=== PATIENT | female | born 1960 | race Caucasian/White ===

== ENCOUNTER 2020-03-10 02:16 | Outpatient (CLI) | payer OTHER, SELFPAY ==
[2020-03-10 21:22] LABS: SARS-CoV-2 RNA PCR Negative
== END 2020-03-10 02:17 | disposition home or self-care (01) ==
LOC: ANHCOVIDDT 02:16
PROVIDERS: PCP Family Medicine Adolescent Medicine; Visit Provider Internal Medicine Gastroenterology
DX: Z01.812 Encounter for preprocedural laboratory examination (principal); Z20.828 Contact with and (suspected) exposure to other viral communicable diseases
CPT/HCPCS: 87635; C9803; U0003

== ENCOUNTER 2020-03-13 00:18 | Day surgery (SDC) | payer OTHER, SELFPAY ==
[2020-03-10 09:23] VITALS: BMI 30.2
[2020-03-13 09:21] VITALS: BP 150/94; PULSE 121; RESP 18; TEMP 36.4; O2SAT 97; BMI 28.8
[2020-03-13] MEDS: LACTATED RINGERS 1,000 ML 150 ML IV CONT (09:31)
--- NOTE | 2020-03-13 09:43 | PM.IMHP ---
H&P: HPI History of Present Illness Date/Time: 03/13/20 09:43 Chief complaint: Neoplasm Screening Narrative: Reason for visit is colonoscopy. Here very pleasant lady seen in consultation at the request of the primary physician. Impression: Colonoscopy for screening purposes. Patient does have some nonspecific abdominal pain in the epigastric area, right lower quadrant and left lower quadrant. These are most likely functional nature. Abdominal wall pain certainly may be a consideration. GERD with occasional breakthrough symptoms. Anxiety. Obesity. Recommendation: Colonoscopy. We will schedule EGD. History: This very pleasant lady's here for screening colonoscopy. She does have a history of reflux disease with occasional to moderately frequent breakthrough symptoms. It depends whether she eats later not. Nausea, vomiting hematemesis tonight. She denies any hematochezia, melena or acholic stools. She reports sharp type with pain in the epigastric area, right lower quadrant and left lower quadrant. It lasts just 1 second. It occurs every day for the last several months. patient is here for colonoscopy. EGD will be scheduled. Physical examination: General: very pleasant patient in no acute distress. HEENT: Head was normocephalic sclerae is clear mouth without masses neck was supple. Heart: Rate rhythm regular without S3 or S4. Lungs: CTA. Abdomen: Soft with no guarding or rigidity. Bowel sounds were active. Neurologic: Cranial nerves 2 through 12 intact. No focal defects. No clonus. Musculoskeletal system: Revealed no joint tenderness or swelling no muscle atrophy. Extremities: Reveal no significant edema. Skin: Warm and dry with normal turgor. Mental status: intact. Patient is alert and oriented. Review of Systems Review of Systems: All systems reviewed & are unremarkable except as noted in HPI and below PMFSH Social History Social History Alcohol intake: current Substance use: never Substance use type: does not use Living arrangements: with family Spiritual care concerns: No Meds Home Medications and Allergies Home Medications Medication Instructions Recorded Confirmed Type alprazolam 0.5 mg PO PRN PRN 03/10/20 03/13/20 History omeprazole magnesium [Prilosec OTC] 20 mg PO DAILY 03/10/20 03/10/20 History Allergies Allergy/AdvReac Type Severity Reaction Status Date / Time codeine Allergy Severe Hives / Unverified 03/13/20 09:20 Red Face Vital Signs Vital Signs - 24 hr 03/13/20 09:21 Temperature 36.4 C L Pulse Rate 121 H Respiratory Rate 18 Blood Pressure 150/94 H Pulse Oximetry 97
--- NOTE | 2020-03-13 09:48 | P.PNAN_ITS ---
Anes - Initial Pre Proc Eval Procedure: Operation Date: 03/13/20 10:30 Proposed Procedures p Screening Colonoscopy - Parth Woods DO Date/Time: 03/13/20 09:48 Surgeon: Parth Woods DO Pre Op Diagnosis: Neoplasm Screening Patient Data Age: 59 Gender: F Height: 5 ft 2 in Weight: 71.5 kg Last Vital Signs Temp 97.5 F L 03/13/20 09:21 Pulse 121 H 03/13/20 09:21 Resp 18 03/13/20 09:21 BP 150/94 H 03/13/20 09:21 Pulse Ox 97 03/13/20 09:21 Allergies Allergy/AdvReac Type Severity Reaction Status Date / Time codeine Allergy Severe Hives / Unverified 03/13/20 09:20 Red Face Home Medications Medication Instructions Recorded Confirmed Type alprazolam 0.5 mg PO PRN PRN 03/10/20 03/13/20 History omeprazole magnesium [Prilosec OTC] 20 mg PO DAILY 03/10/20 03/10/20 History Patient hx anesthesia problems: none Family hx anesthesia problems: none [facility] Past Medical History Medical History (Updated 03/13/20 @ 09:46 by Kwadwo Medina MD) Anxiety GERD (gastroesophageal reflux disease) Social History Social History Alcohol intake: current Substance use: never Substance use type: does not use Living arrangements: with family Spiritual care concerns: No Anes - Eval Final PreProcedure Day of Procedure 03/13/20 09:48 Patient weight: overweight Heart: regular rate and rhythm Lungs: clear to auscultation Airway: Mallampati scale class II Neurological: alert and oriented Last oral intake: >/= 8 hours ASA classification: II Emergent: no Anesthetic plan: proceed Anesthesia type and monitoring: general GIVS and standard monitoring Informed Consent: The patient's anesthetic plan and its attendant risks and benefits were discussed with the patient/family/POA. Questions were solicited and answers provided to the satisfaction of the patient/family/POA.
[2020-03-13 10:42] VITALS: BP 138/83; PULSE 94; RESP 15; O2SAT 100
[2020-03-13 10:52] VITALS: BP 135/92; PULSE 97; RESP 22; O2SAT 100
[2020-03-13 11:02] VITALS: BP 116/71; PULSE 89; RESP 17; O2SAT 99
[2020-03-13 11:12] VITALS: BP 122/85; PULSE 95; RESP 17; O2SAT 97
== END 2020-03-13 11:15 | disposition home or self-care (01) ==
PROVIDERS: PCP Family Medicine Adolescent Medicine; Visit Provider Internal Medicine Gastroenterology
PROC: 0DJD8ZZ Inspection of Lower Intestinal Tract, Via Natural or Artificial Opening Endoscopic (ICD-10-PCS; CPT 45378; principal; 2020-03-13 10:30)
DX: Z12.11 Encounter for screening for malignant neoplasm of colon (principal); K57.30 Diverticulosis of large intestine without perforation or abscess without bleeding; K62.1 Rectal polyp; F41.9 Anxiety disorder, unspecified; K21.9 Gastro-esophageal reflux disease without esophagitis
CPT/HCPCS: 45385; 45380; 87635; 88305; C9803; J2704; J7120; U0003

== ENCOUNTER → 2020-10-03 03:12 | Outpatient (CLI) | payer OTHER, SELFPAY ==
[2020-10-03 19:50] LABS: SARS-CoV-2 RNA PCR Negative
== END ==
PROVIDERS: PCP Family Medicine Adolescent Medicine; Visit Provider Internal Medicine Gastroenterology
DX: Z01.812 Encounter for preprocedural laboratory examination (principal); Z20.822 Contact with and (suspected) exposure to COVID-19
CPT/HCPCS: C9803; U0003; U0005

== ENCOUNTER 2020-10-06 00:35 | Day surgery (SDC) | payer OTHER, SELFPAY ==
--- NOTE | 2020-10-06 11:01 | WPDANESEPPF ---
Anes - Initial Pre Proc Eval Procedure: Operation Date: 10/06/20 12:00 Proposed Procedures p Esophagogastroduodenoscopy - Parth Woods DO Date/Time: 10/06/20 11:01 Surgeon: Parth Woods DO Pre Op Diagnosis: Gerd Patient Data Age: 60 Gender: F Height: 1.57 m Weight: Allergies Allergy/AdvReac Type Severity Reaction Status Date / Time codeine Allergy Severe Hives / Verified 10/06/20 11:18 Red Face Home Medications Medication Instructions Recorded Confirmed Type alprazolam 0.5 mg PO DAILY PRN 03/10/20 09/25/20 History omeprazole magnesium [Prilosec OTC] 20 mg PO BID 03/10/20 09/25/20 History Patient hx anesthesia problems: none Family hx anesthesia problems: none [facility] Past Medical History Medical History (Updated 10/06/20 @ 09:23 by Manuel Caldwell DO) Anxiety Fibroid GERD (gastroesophageal reflux disease) Palpitations Surgical History Surgical History (Updated 10/06/20 @ 09:23 by Manuel Caldwell DO) History of hysterectomy Hx laparoscopic cholecystectomy Social History Social History Smoking status: Never smoker Alcohol intake: current Alcohol use details: RARELY Substance use: never Substance use type: does not use Living arrangements: with family Spiritual care concerns: No Anes - Eval Final PreProcedure Day of Procedure 10/06/20 11:01 Patient weight: normal Heart: regular rate and rhythm Lungs: clear to auscultation and normal air movement Airway: Mallampati scale class II Neurological: alert and oriented Last oral intake: >/= 8 hours ASA classification: II Emergent: no Anesthetic plan: proceed Anesthesia type and monitoring: general GIVS and standard monitoring Informed Consent: The patient's anesthetic plan and its attendant risks and benefits were discussed with the patient/family/POA. Questions were solicited and answers provided to the satisfaction of the patient/family/POA.
[2020-10-06] MEDS: LACTATED RINGERS 1,000 ML 150 ML IV CONT (11:17)
[2020-10-06 11:20] VITALS: BP 176/83; PULSE 92; RESP 24; TEMP 36.5; O2SAT 99; BMI 29.9
--- NOTE | 2020-10-06 11:34 | WPDGICN ---
GI Consult Note Consult date/time: 10/06/20 11:34 HPI: reason for visit EGD. This very pleasant lady seen in consultation at the request of the primary physician. Impression: GERD control with b.i.d. PPI. The patient does have complaints of intermittent abdominal pain. We will evaluate for underlying peptic ulcer disease. Anxiety. Diverticulosis coli. Recommendation: EGD. History: This very pleasant lady has history reflux disease. She takes omeprazole 20 mg b.i.d.. The patient denies any nausea, vomiting, hematemesis, dysphagia, odynophagia, indigestion or heartburn at this time. She seems to be well controlled on medication. She does have a couple of episodes of sharp pain occasionally. She does report some urgency in the morning with loose stools. Hematochezia, melena acholic stools night. She does admit taking NSAIDs at time. Physical examination: General: very pleasant patient in no acute distress. HEENT: Head was normocephalic sclerae is clear mouth without masses neck was supple. Heart: Rate rhythm regular without S3 or S4. Lungs: CTA. Abdomen: Soft with no guarding or rigidity. Bowel sounds were active. Neurologic: Cranial nerves 2 through 12 intact. No focal defects. No clonus. Musculoskeletal system: Revealed no joint tenderness or swelling no muscle atrophy. Extremities: Reveal no significant edema. Skin: Warm and dry with normal turgor. Mental status: intact. Patient is alert and oriented. Review of Systems Review of Systems: All systems reviewed & are unremarkable except as noted in HPI and below PMFSH Past Medical History Medical History (Updated 10/06/20 @ 09:23 by Manuel Caldwell DO) Anxiety Fibroid GERD (gastroesophageal reflux disease) Palpitations Surgical History Surgical History (Updated 10/06/20 @ 09:23 by Manuel Caldwell DO) History of hysterectomy Hx laparoscopic cholecystectomy Social History Social History Smoking status: Never smoker Alcohol intake: current Alcohol use details: RARELY Substance use: never Substance use type: does not use Living arrangements: with family Spiritual care concerns: No Meds Home Medications and Allergies Home Medications Medication Instructions Recorded Confirmed Type alprazolam 0.5 mg PO DAILY PRN 03/10/20 09/25/20 History omeprazole magnesium [Prilosec OTC] 20 mg PO BID 03/10/20 09/25/20 History Allergies Allergy/AdvReac Type Severity Reaction Status Date / Time codeine Allergy Severe Hives / Verified 10/06/20 11:18 Red Face Vital Signs Vital Signs - 24 hr 10/06/20 11:20 Temperature 36.5 C Pulse Rate 92 Respiratory Rate 24 H Blood Pressure 176/83 H Pulse Oximetry 99
[2020-10-06 11:55] VITALS: BP 131/72; PULSE 92; RESP 14; O2SAT 98
[2020-10-06 12:05] VITALS: BP 130/82; PULSE 87; RESP 17; O2SAT 98
[2020-10-06 12:15] VITALS: BP 134/87; PULSE 82; RESP 23; O2SAT 100
== END 2020-10-06 12:29 | disposition home or self-care (01) ==
PROVIDERS: PCP Family Medicine Adolescent Medicine; Visit Provider Internal Medicine Gastroenterology
PROC: 0DJ08ZZ Inspection of Upper Intestinal Tract, Via Natural or Artificial Opening Endoscopic (ICD-10-PCS; CPT 43235; principal; 2020-10-06 12:00)
DX: K21.9 Gastro-esophageal reflux disease without esophagitis (principal); F41.9 Anxiety disorder, unspecified; R00.2 Palpitations; K57.30 Diverticulosis of large intestine without perforation or abscess without bleeding
CPT/HCPCS: 43239; 87081; 88305; C9803; J2001; J2704; J7120; U0003; U0005

== ENCOUNTER 2020-12-25 12:06 | Emergency (ER) | payer OTHER, SELFPAY ==
[2020-12-25 12:06] VITALS: BP 106/72; PULSE 100; RESP 20; TEMP 36.6; O2SAT 100
--- NOTE | 2020-12-25 12:30 | PC.NURSE ---
PT AWARE OF NEED FOR URINE SAMPLE. CUP PROVIDED TO PT WITH BSC.
[2020-12-25 12:46] LABS: Basophils Percent Auto 0.4 % (0.2-1.2); Hematocrit 47.1 % (37.0-47.0); Immature Granulocyte Absolute 0.02 K/mm3 (0.00-0.031); Immature Granulocyte Percent A 0.2 % (0-0.5); Lymphocytes Absolute Auto 0.84 K/mm3 (0.9-3.2); Lymphocytes Percent Auto 9.8 % (18.3-44.2); Mean Corpuscular Hemoglobin 29.1 pg (26-34); Mean Corpuscular Volume 85.6 fl (80-100); Mean Platelet Volume 11.7 fl (7.4-10.4); Monocytes Absolute Auto 0.6 K/mm3 (0.1-0.6); Monocytes Percent Auto 7.2 % (2.6-8.5); Neutrophils Absolute Auto 7.1 K/mm3 (1.3-6.7); Neutrophils Percent Auto 82.4 % (45.5-73.1); Platelet Count Result 206 k/mm3 (150-375); Red Cell Distribution Width 13.4 % (11.5-14.5); White Blood Count 8.6 K/mm3 (4.5-10.0)
[2020-12-25 12:57] LABS: Alanine Aminotransferase 36 U/L (4-35); Albumin Level 5.1 g/dL (3.5-5.1); Alkaline Phosphatase 99 U/L (38-126); Anion Gap 22 mmol/L (8-16); Aspartate Amino Transferase 42 U/L (14-36); Bilirubin,Total 0.9 mg/dL (0.2-1.3); Blood Urea Nitrogen 16 mg/dL (7-17); Calcium 10.1 mg/dL (8.4-10.2); Carbon Dioxide 18 mmol/L (22-30); Chloride 96 mmol/L (98-107); Estimated CRCL calculation 49 ml/min; Estimated Glomerular Filt Rate 56; Glucose 119 mg/dL (65-110); Lipase 334 U/L (23-300); Potassium 3.6 mmol/L (3.4-5.0); Sodium 136 mmol/L (137-145)
--- NOTE | 2020-12-25 13:54 | PC.NURSE ---
SPOKE WITH MR DARLINE WHO REPORTS THAT HIS HAS BEEN TAKING HYDROXYCHLOROQUINE, ZINC, VITAMIN D3 AND VITAMIN B12 THAT WAS PRESCRIBED THRU [facility] [employer] -DR DAYRON TRIPATHI. PHARMACY THAT SENT MEDS THRU MAIL ORDER IS YOUR PHARMACY IN [facility] AT [phone]
[2020-12-25 14:05] LABS: EDCOVIDSCREEN Positive (Negative)
[2020-12-25] MEDS: POTASSIUM CHLORIDE 20 MEQ TABLET 40 MEQ PO (15:26)
[2020-12-25] MEDS: ONDANSETRON INJ 4 MG/2 ML VIAL IV PUSH (15:27)
[2020-12-25] MEDS: SODIUM CHLORIDE 0.9% IV 1,000 ML 999 ML IV CONT (15:28)
[2020-12-25 15:30] VITALS: BP 120/80; PULSE 106; RESP 16; O2SAT 98
--- NOTE | 2020-12-25 15:30 | ED.GENADULT ---
HPI - General Adult General Chief complaint: Nausea/Vomiting/Diarrhea <Danette Pablo PA-C - Last Filed: 12/25/20 15:37> Stated complaint: cold symptoms <Danette Pablo PA-C - Last Filed: 12/25/20 15:37> Time Seen by Provider: 12/25/20 12:41 <Danette Pablo PA-C - Last Filed: 12/25/20 15:37> Source: patient <JAVIER Rose Last Filed: 12/25/20 15:37> Mode of arrival: ambulatory <JAVIER Rose Last Filed: 12/25/20 15:37> Limitations: no limitations <JAVIER Rose Last Filed: 12/25/20 15:37> History of Present Illness HPI narrative: Patient presents with chief complaint of nausea, vomiting, diarrhea and nasal congestion over the past 2 days. Patient states that she was exposed to a Covid positive patient 10 days ago. Patient states that she called the online frontline doctor care and was prescribed zinc, vitamin C, hydrochloroquine and has been taking those medications. Patient denies chest pain or shortness of breath. Patient states that she has had fatigue that she has not been able to eat very much without vomiting. <Danette Pablo PA-C - Last Filed: 12/25/20 15:37> Related Data Home medications: Home Medications Medication Instructions Recorded Confirmed B Complex-Vitamin B12 12/25/20 B complex-zinc 12/25/20 Vitamin D3 12/25/20 hydroxychloroquine 12/25/20 omeprazole 12/25/20 <Danette Pablo PA-C - Last Filed: 12/25/20 15:37> Allergies/adverse reactions: Allergies Allergy/AdvReac Type Severity Reaction Status Date / Time codeine Allergy Severe Hives / Verified 12/25/20 12:40 Red Face <Danette Pablo PA-C - Last Filed: 12/25/20 15:37> Review of Systems Review of Systems: CONSTITUTIONAL: Denies fever, chills, or sweats. EYES: Denies visual changes, redness, or discharge. ENT: Reports congestion denies rhinorrhea,sore throat, or otalgia. CARDIOVASCULAR: Denies chest pain, palpitations, or edema. RESPIRATORY: Denies cough or dyspnea. GASTROINTESTINAL: Reports nausea vomiting diarrhea GENITOURINARY: Denies dysuria or hematuria. SKIN: Denies rash or itching. MUSCULOSKELETAL: Denies back pain, joint pain, or myalgia. NEUROLOGIC: Denies headache, numbness, dizziness, or weakness. PSYCHIATRIC: Denies anxiety or depression. <Danette Pablo PA-C - Last Filed: 12/25/20 15:37> [facility] Past Medical History Medical History: Medical History (Updated 12/25/20 @ 15:36 by Danette Pablo PA-C) Anxiety Fibroid GERD (gastroesophageal reflux disease) Palpitations <Danette Pablo PA-C - Last Filed: 12/25/20 15:37> Surgical History Surgical History: Surgical History (Updated 10/06/20 @ 09:23 by Manuel Caldwell DO) History of hysterectomy Hx laparoscopic cholecystectomy <Danette Pablo PA-C - Last Filed: 12/25/20 15:37> Social History Social History: Social History Smoking status: Never smoker Alcohol intake: current Alcohol use details: RARELY Substance use: never Substance use type: does not use Spiritual care concerns: No <Danette Pablo PA-C - Last Filed: 12/25/20 15:37> Exam Narrative: GENERAL: Well-appearing, well-nourished, appears tired but not toxic in appearance HEAD: Normocephalic, atraumatic. EYES: PERRLA and EOMI. NECK: Supple. Range of motion intact CHEST: Clear to auscultation. No respiratory distress. No wheezes rales or rhonchi HEART: Regular rate and rhythm. No murmur heard. Normal peripheral pulses. ABDOMEN: Soft, nontender, nondistended, normal active bowel sounds. EXTREMITIES: Normal range of motion. No edema. SKIN: Warm, dry, no rash. NEURO: No focal deficits. Alert and oriented x3. PSYCH: Normal mood and affect. <Danette Pablo PA-C - Last Filed: 12/25/20 15:37> Course Vital Signs Vital signs: Vital Signs Temperature 98 F 12/25/20 12:06 Pulse Rate 100 12/25/20 12:06 Respiratory Rate 20 12/25/20 12:06 Blood
--- NOTE | 2020-12-25 15:35 | PC.NURSE ---
PT AWARE OF CONTINUED NEED FOR URINE SAMPLE. DECLINES STRAIGHT CATH.
[2020-12-25 17:15] VITALS: BP 128/85; PULSE 97; RESP 16; O2SAT 100
== END 2020-12-25 20:29 | disposition home or self-care (01) ==
PROVIDERS: Physician Assistant; Emergency Provider Emergency Medicine; PCP Family Medicine Adolescent Medicine
DX: U07.1 COVID-19 (principal); K21.9 Gastro-esophageal reflux disease without esophagitis
CPT/HCPCS: 36415; 80053; 83690; 85025; 87426; 96361; 96374; 99284; A9270; C9803; J2405; J7030

== ENCOUNTER 2020-12-30 05:54 | Inpatient (IN) | payer OTHER, SELFPAY ==
[2020-12-30] VITALS (20 sets, daily range): BP systolic 73–142; BP diastolic 45–96; PULSE 100–123; RESP 12–24; TEMP 36.2–37.9; O2SAT 90–99; BMI 28.5
--- NOTE | ~2020-12-30 | XR_ITS ---
EXAMINATION: XR chest 1V portable INDICATION: Respiratory failure TECHNIQUE: Portable AP chest at 0505 hours COMPARISON: 02/14/2021 FINDINGS: The endotracheal tube is approximately 5.8 cm above the lobito. The nasogastric tube is in the stomach. A left upper extremity PICC ends with its tip at the superior cavoatrial junction. Two r ight-sided chest tubes are again seen. The inferior chest tube has been partially withdrawn and ends with its side port just inside the pleural space. There is no pleural effusion or pneumothorax. Diffu se airspace opacities persist with slight interval worsening in the right perihilar region. IMPRESSION: 1. Diffuse lung disease with interval worsening in the right perihilar region, consistent with pneumo lauren and/or pulmonary edema and/or acute respiratory distress syndrome (ARDS). Reviewed, dictated and finalized at location A. IMPRESSION: 1. Diffuse lung disease with interval worsening in the right perihilar region, consistent with pneumonia and/or pulmonary edema and/or acute respiratory distr ess syndrome (ARDS).
--- NOTE | ~2020-12-30 | XR_ITS ---
EXAMINATION: XR chest 1V portable DATE: 01/19/2021 05:54 INDICATION: COVID pneumonia TECHNIQUE: frontal view of the chest was obtained. COMPARISON: Chest radiograph dated 01/18/2021 FINDINGS: Endotracheal tube tip 1.2 cm above the lobito. Nasogastric tube with distal tip in proximal side port in the body of the stomach. Unchanged apically directed right chest tube. Residual or pneumomediastinum and small right pneumothorax. Additional superimposed subcutaneous emph ysema project over the bilateral chest wall, base of the neck and extending into the right upper arm. Diffuse groundglass opacities throughout both lungs. No pleural effusion or left-sided pneumothorax. Heart size is normal. IMPRESSION: 1. Lines and tubes in expected position. 2. Persistent pneumomediastinum, small right pneumothorax and extensive subcutaneous emphysema. 2. No significant change in diffuse lung disease consistent with COVID pneumonia. Reviewed, dictated and finalized at location A. IMPRESSION: 1. Lines and tubes in expected position. 2. Persistent pneumomediastinum, small right pneumothorax and extensive subcuta neous emphysema. 2. No significant change in diffuse lung disease consistent with COVID pneumoni a.
--- NOTE | ~2020-12-30 | XR_ITS ---
EXAMINATION: XR chest 1V portable INDICATION: Respiratory failure TECHNIQUE: Portable AP chest at 0514 hours COMPARISON: 02/18/2021 FINDINGS: The endotracheal tube ends 5.3 cm above the lobito. The nasogastric tube is in the stomach. A right-sided chest tube courses towards the right lung apex. A left upper extremity PICC ends with its tip at the superior cavoatrial junction. The inferior right chest tube has been removed. No pneum othorax is identified. Diffuse opacities persist throughout all lung zones without significant change . There is no pleural effusion or pneumothorax. The cardiomediastinal silhouette is normal. IMPRESSION: 1. Stable diffuse lung disease, consistent with pneumonia and/or pulmonary edema and/or acute respira tory distress syndrome (ARDS). 2. Inferior right chest tube removed. Reviewed, dictated and finalized at location A. IMPRESSION: 1. Stable diffuse lung disease, consistent with pneumonia and/or pulmonary leann a and/or acute respiratory distress syndrome (ARDS). 2. Inferior right chest tube removed.
--- NOTE | ~2020-12-30 | XR_ITS ---
XR chest 1V portable DATE: 01/27/2021 05:39 INDICATION: Respiratory failure, Covid pneumonia TECHNIQUE: Portable AP chest on 01/27/2021 at 0505 hours COMPARISON: 01/26/2021 portable AP chest at 0519 hours FINDINGS: ET tube in satisfactory position 4.8 cm above lobito. NG tube in stomach. Left upper extrem ity PIC catheter tip overlies the upper right atrium. Right chest tube is unchanged in position. The right lung apex down approximately 1.7 cm. Extensive diffuse bilateral pulmonary infiltrates persist. No pleural effusion is evident. IMPRESSION: Mild right apical pneumothorax; right chest tube Extensive diffuse bilateral pulmonary infiltrates, not significantly changed since yesterday Reviewed, dictated and finalized at location A. IMPRESSION: Mild right apical pneumothorax; right chest tube Extensive diffuse bilateral pulmonary infiltrates, not significantly changed si nce yesterday
--- NOTE | ~2020-12-30 | XR_ITS ---
XR chest 1V portable DATE: 02/06/2021 05:34 INDICATION: Respiratory failure TECHNIQUE: Portable AP chest on 02/06/2021 at 0520 hours COMPARISON: 02/05/2021 portable AP chest FINDINGS: ET tube in satisfactory position 3.9 cm above lobito. NG tube unchanged in position in kala dalila fundus. Left upper stomach the catheter tip overlies the right atrium. Right thoracostomy tube is unchanged in position overlying the lateral right apical area. There are persistent diffuse bilateral pulmonary infiltrates with air bronchograms in the lower lobes in particular, especially on the left, unchanged since 02/05/2021. IMPRESSION: No significant change since 02/05/2021 Reviewed, dictated and finalized at location A.
--- NOTE | ~2020-12-30 | XR_ITS ---
XR chest 1V portable DATE: 01/28/2021 05:30 INDICATION: Respiratory failure TECHNIQUE: Portable AP chest on 01/28/2021 at 0516 hours COMPARISON: 01/27/2021 portable AP chest at 0505 hours FINDINGS: ET tube tip is 5.5 cm above lobito; ideal range is 2 7 5 cm. NG tube in gastric fundus. Left upper extremity PIC catheter tip overlies the upper right atrium. Right thoracostomy tube is unchanged in position. No definite pneumothorax is identified. Diffuse bilateral pulmonary infiltrates persist relatively stable since 01/27/2021. IMPRESSION: Right thoracostomy tube; no right pneumothorax is noted Persistent diffuse bilateral pulmonary infiltrates Reviewed, dictated and finalized at location A.
--- NOTE | ~2020-12-30 | XR_ITS ---
EXAMINATION: XR chest 1V portable DATE: 02/09/2021 05:41 INDICATION: Respiratory failure. COVID-19 pneumonia. TECHNIQUE: A single frontal view of the chest was obtained. COMPARISON: Chest single view 02/08/2021 FINDINGS: There are airspace and interstitial opacities throughout the lungs bilaterally. There is a small right pleural effusion. Two right-sided chest tubes are noted. No pleural effusion. The heart s ize is normal. The endotracheal tube tip is 5.7 cm above the lobito. The nasogastric tube tip is in t he stomach. A left upper extremity peripherally inserted central venous catheter (PICC) is seen with tip at the superior cavoatrial junction. IMPRESSION: 1. Stable small right pneumothorax with 2 chest tubes. 2. Stable diffuse lung disease, consistent with pneumonia versus acute respiratory distress syndrome (ARDS). Reviewed, dictated and finalized at location A. IMPRESSION: 1. Stable small right pneumothorax with 2 chest tubes. 2. Stable diffuse lung disease, consistent with pneumonia versus acute respirat ory distress syndrome (ARDS).
--- NOTE | ~2020-12-30 | XR_ITS ---
EXAMINATION: XR chest 1V portable DATE: 01/14/2021 20:19 INDICATION: Increased ventilator pressures TECHNIQUE: frontal view of the chest was obtained. COMPARISON: Chest radiograph dated 01/14/2021 FINDINGS: Endotracheal tube tip 4.5 cm above the lobito. Nasogastric tube tip in proximal side port in the body of the stomach. Apically directed right chest tube. Diffuse bilateral airspace opacities most prominent with air bronchograms in the left lower lung zone . No pleural effusion or left-sided pneumothorax. There is some pneumomediastinum and tiny residual r ight paramediastinal pneumothorax. Heart size is normal. IMPRESSION: 1. Right chest tube in unchanged position with near complete resolution of now tiny right pneumothora x decrease in pneumomediastinum. 2. Note significant change in diffuse bilateral lung disease consistent with pneumonia. Reviewed, dictated and finalized at location A. IMPRESSION: 1. Right chest tube in unchanged position with near complete resolution of now tiny right pneumothorax decrease in pneumomediastinum. 2. Note significant change in diffuse bilateral lung disease consistent with pn eumonia.
--- NOTE | ~2020-12-30 | XR_ITS ---
EXAMINATION: XR chest 1V portable EXAM DATE: 02/21/2021 09:14 INDICATION: Desaturation, hypoxia . Respiratory failure. TECHNIQUE: Portable AP frontal chest x-ray was obtained. Comparison is made to prior examination from earlier same date. FINDINGS: Endotracheal tube tip is 5 centimeters above the lobito. Feeding tube is in position. Ther e is a left-sided PICC line. Diffuse abnormal reticulation is unchanged, likely edema and/or pneumonia. There are no sizable pleu ral effusions. There is no pneumothorax suspected. Cardiomediastinal silhouette is normal. The b ones and soft tissues are unremarkable. There is no significant interval change compared to prior exam. IMPRESSION: 1. Line and tube(s) in position. 2. Diffuse pneumonia and/or edema unchanged. Reviewed, dictated and finalized at location A.
--- NOTE | ~2020-12-30 | XR_ITS ---
EXAMINATION: XR chest 1V portable DATE: 01/05/2021 05:57 INDICATION: Dyspnea TECHNIQUE: frontal view of the chest was obtained. COMPARISON: Chest radiograph dated 01/03/2021 FINDINGS: Mild elevation of the right hemidiaphragm. Persistent opacities in the bilateral lower lung zones. No pleural effusion or pneumothorax. The cardiomediastinal silhouette is normal. IMPRESSION: 1. No significant change in opacities in bilateral lower lung zones which could represent pneumonia a nd/or atelectasis. Reviewed, dictated and finalized at location A. IMPRESSION: 1. No significant change in opacities in bilateral lower lung zones which could represent pneumonia and/or atelectasis.
--- NOTE | ~2020-12-30 | XR_ITS ---
XR chest 1V portable 01/24/2021 05:34 Indication: Pneumothorax. Covid . Procedure: AP portable chest Comparison: Comparison to multiple prior studies sequentially, with oldest reviewed study dated 01/20. Findings: Endotracheal tube tip 4.4 cm above the lobito. NG tube in the stomach. Right-sided chest tu be at the apex. Heart size normal. PICC line tip in the SVC. Diffuse bilateral airspace disease witho ut significant change. No definite pneumothorax. Impression: 1: Diffuse bilateral airspace disease which may represent pneumonia or edema. Reviewed, dictated and finalized at location A. Impression: 1: Diffuse bilateral airspace disease which may represent pneumonia or edema.
--- NOTE | ~2020-12-30 | XR_ITS ---
EXAMINATION: XR chest 1V portable DATE: 02/11/2021 05:43 INDICATION: Respiratory failure. COVID-19 pneumonia. TECHNIQUE: A single frontal view of the chest was obtained. COMPARISON: Chest single view 02/10/2021 FINDINGS: There are airspace and interstitial opacities throughout the lungs bilaterally. No pleural effusion. There is a small right pneumothorax. Two right-sided chest tubes are noted. The endotrachea l tube tip is 4.8 cm above the lobito. A nasogastric tube tip is in the stomach. A left upper extremi ty peripherally inserted central venous catheter (PICC) is seen with tip at the superior cavoatrial j unction. IMPRESSION: 1. Stable diffuse lung disease, consistent with pneumonia versus acute respiratory distress syndrome (ARDS). 2. Small right pneumothorax with interval improvement with 2 right-sided chest tubes. Reviewed, dictated and finalized at location A. IMPRESSION: 1. Stable diffuse lung disease, consistent with pneumonia versus acute respirat ory distress syndrome (ARDS). 2. Small right pneumothorax with interval improvement with 2 right-sided chest tubes.
--- NOTE | ~2020-12-30 | XR_ITS ---
EXAMINATION: XR chest-chest tube insert/pos INDICATION: Chest tube insertion TECHNIQUE: Portable AP chest at 1132 hours COMPARISON: 1053 hours FINDINGS: A right-sided chest tube has been inserted which ends in the lower hemithorax. No definite persistent pneumothorax is identified. A right-sided chest tube coursing towards the lung apex is unc hanged in position. The endotracheal tube is 5.3 cm above the lobito. A nasogastric tube is in the st omach. A left upper extremity PICC ends with its tip at the superior cavoatrial junction. Significant , widespread bilateral interstitial and airspace opacities are unchanged. The cardiomediastinal silho uette is stable. IMPRESSION: 1. Right-sided chest tube insertion with resolved right pneumothorax. 2. Stable diffuse lung disease, consistent with pneumonia and/or pulmonary edema and/or acute respira tory distress syndrome (ARDS). Reviewed, dictated and finalized at location B. IMPRESSION: 1. Right-sided chest tube insertion with resolved right pneumothorax. 2. Stable diffuse lung disease, consistent with pneumonia and/or pulmonary leann a and/or acute respiratory distress syndrome (ARDS).
--- NOTE | ~2020-12-30 | XR_ITS ---
XR chest 1V portable DATE: 01/29/2021 05:27 INDICATION: Respiratory failure TECHNIQUE: Portable AP chest on 01/29/2021 at 0505 hours COMPARISON: Portable AP chest on 01/28/2021 at 0516 hours FINDINGS: ET tube tip 5 cm above lobito. NG tube in stomach. Right thoracostomy tube unchanged in position, overlying right apex. No pneumothorax. Persistent severe diffuse bilateral pulmonary infiltrates. Normal heart size. No pleural effusion. IMPRESSION: Persistent severe diffuse bilateral pulmonary infiltrates Right thoracostomy tube; no pneumothorax Reviewed, dictated and finalized at location A.
--- NOTE | ~2020-12-30 | XR_ITS ---
EXAMINATION: XR chest 1V portable DATE: 02/10/2021 05:55 INDICATION: Respiratory failure. COVID-19 pneumonia. TECHNIQUE: A single frontal view of the chest was obtained. COMPARISON: Chest single view 02/09/2021 FINDINGS: There are airspace and interstitial opacities throughout the lungs bilaterally. There is a small right pneumothorax. Two right-sided chest tubes are noted. No pleural effusion. The heart size is normal. The endotracheal tube tip is 4.9 cm above the lobito. The nasogastric tube tip is in the s tomach. A left upper extremity peripherally inserted central venous catheter (PICC) is seen with tip at the superior cavoatrial junction. IMPRESSION: 1. Stable diffuse lung disease, consistent with pneumonia versus acute respiratory distress syndrome (ARDS). 2. Stable small right pneumothorax with 2 right-sided chest tubes. Reviewed, dictated and finalized at location A. IMPRESSION: 1. Stable diffuse lung disease, consistent with pneumonia versus acute respirat ory distress syndrome (ARDS). 2. Stable small right pneumothorax with 2 right-sided chest tubes.
--- NOTE | ~2020-12-30 | XR_ITS ---
EXAMINATION: XR chest-chest tube insert/pos DATE: 01/14/2021 01:04 INDICATION: Right pneumothorax. TECHNIQUE: A single frontal view of the chest was obtained. COMPARISON: Chest single view 01/13/2021 FINDINGS: There is mild elevation of right hemidiaphragm. There are airspace and interstitial opaciti es throughout the lungs bilaterally. There is a small right pneumothorax. A right-sided chest tube is noted. Pneumomediastinum is noted. No pleural effusion. The heart size is normal. The endotracheal t ube tip is 4.9 cm above the lobito. The nasogastric tube tip is in the stomach. IMPRESSION: 1. Small right pneumothorax with improvement status post chest tube placement. 2. Pneumomediastinum again seen. 3. Stable diffuse lung disease, consistent with COVID-19 pneumonia. Reviewed, dictated and finalized at location A.
--- NOTE | ~2020-12-30 | XR_ITS ---
XR chest 1V portable DATE: 02/01/2021 10:23 INDICATION: Respiratory failure TECHNIQUE: Portable AP chest on 02/01/2021 at 0956 hours COMPARISON: 01/31/2021 portable AP chest at 0522 hours FINDINGS: ET tube in satisfactory position 4.5 cm above lobito. NG tube in gastric fundus. Left upper extremity PIC catheter tip overlies upper right atrium. Right thoracostomy tube unchanged in position at lateral right apical area. Diffuse bilateral pulmonary infiltrates persist relatively unchanged since 02/10/2021. No pneumothora x is evident. IMPRESSION: No significant change since 02/10/2021 Reviewed, dictated and finalized at location A.
--- NOTE | ~2020-12-30 | XR_ITS ---
EXAMINATION: XR chest 1V portable EXAM DATE: 01/18/2021 05:57 INDICATION: COVID pneumonia, acute hypoxic respiratory failure. TECHNIQUE: Portable AP frontal chest x-ray was obtained. Comparison is made to prior examination from 01/17, 01/16, 01/15. FINDINGS: There is a right-sided chest tube, appears to be in position. Endotracheal tube tip is 3 c m centimeters above the lobito. Feeding tube is in position. Probable identification of tiny right apical pneumothorax. Probable pneumomediastinum. There is exten sive subcutaneous gas throughout the thorax. Diffuse bilateral airspace disease consistent with COVID pneumonia. There are no sizable pleural effusions. The cardiomediastinal silhouette is prominen t but magnified on this AP technique. The bones and soft tissues are unremarkable. Mild interval improvement in quantity of subcutaneous gas. IMPRESSION: 1. Tubes in position. 2. Probable tiny persistent right apical pneumothorax. 3. Diffuse airspace disease consistent with COVID pneumonia 4. Pneumomediastinum. Extensive subcutaneous gas. Reviewed, dictated and finalized at location A.
--- NOTE | ~2020-12-30 | XR_ITS ---
EXAMINATION: XR chest 1V portable INDICATION: Desaturation TECHNIQUE: Portable AP chest at 1120 hours COMPARISON: 0505 hours FINDINGS: The endotracheal tube has been advanced and ends 4.4 cm above the lobito. The nasogastric t ube is in the stomach. A left upper extremity PICC ends with its tip at the superior cavoatrial junct ion. Two right-sided chest tubes are noted. The inferior chest tube has been advanced into the pleura l space in the proximal side port now resides within the pleural space. There is no pneumothorax. Dif fuse interstitial and airspace opacities persist in all lung zones without significant change. The ca rdiomediastinal silhouette is stable. A small amount of gas is noted in the right neck. IMPRESSION: 1. Stable diffuse lung disease, consistent with pneumonia and/or pulmonary edema and/or acute respira tory distress syndrome (ARDS). 2. Inferior right chest tube advanced with the side port now ending in the pleural space. 3. Endotracheal tube advanced and now ending 4.4 cm above the lobito. Reviewed, dictated and finalized at location A. IMPRESSION: 1. Stable diffuse lung disease, consistent with pneumonia and/or pulmonary leann a and/or acute respiratory distress syndrome (ARDS). 2. Inferior right chest tube advanced with the side port now ending in the pleu ral space. 3. Endotracheal tube advanced and now ending 4.4 cm above the lobito.
--- NOTE | ~2020-12-30 | XR_ITS ---
EXAMINATION: XR chest ET placement DATE: 01/13/2021 23:43 INDICATION: Endotracheal tube placement and nasogastric tube placement. TECHNIQUE: frontal view of the chest was obtained. COMPARISON: Chest radiograph dated 01/13/2021 FINDINGS: Endotracheal tube tip 1.6 cm above the lobito. Nasogastric tube tip in the stomach. There is a new mo derate-sized right pneumothorax with 3.9 cm separation of the pleural margins at the apex, 2.5 cm the mid lung zone. Diffuse airspace opacities throughout both lungs increased in the right lung due to t he interval partial collapse. Air bronchograms in the left lower lung zone. No pleural effusion or le ft-sided pneumothorax. The cardiomediastinal silhouette is normal. IMPRESSION: 1. Moderate-sized right pneumothorax without evident mediastinal shift to suggest tension physiology this time. Per discussion with the patient's nurse Dr. Adams is aware and planning for chest tube p lacement. 2. Diffuse bilateral lung disease consistent with pneumonia. Reviewed, dictated and finalized at location A. IMPRESSION: 1. Moderate-sized right pneumothorax without evident mediastinal shift to sugge st tension physiology this time. Per discussion with the patient's nurse Dr. Louisa tafoya is aware and planning for chest tube placement. 2. Diffuse bilateral lung disease consistent with pneumonia.
--- NOTE | ~2020-12-30 | XR_ITS ---
EXAMINATION: XR chest 1V portable DATE: 01/21/2021 05:35 INDICATION: COVID. Pneumothorax. TECHNIQUE: frontal view of the chest was obtained. COMPARISON: Chest radiograph dated 01/20/2021 FINDINGS: Endotracheal tube tip 4.4 cm above the lobito. Is a gastric tube tip in proximal side port in the bod y of the stomach. Left upper extremity peripherally inserted central venous catheter (PICC) tip near the superior cavoatrial junction. Unchanged apically directed right chest tube. No discernible residual pneumothorax. There has been significant improvement in the previously seen s ubcutaneous emphysema at the right chest, neck and shoulder. No significant change in diffuse bilater al airspace opacities. No pleural effusion. Heart size is normal. IMPRESSION: 1. No significant change in diffuse bilateral lung disease consistent with pneumonia and/or pulmonary edema. 2. Lines and tubes remain in expected positions. No evident residual pneumothorax. Reviewed, dictated and finalized at location A. IMPRESSION: 1. No significant change in diffuse bilateral lung disease consistent with pneu monia and/or pulmonary edema. 2. Lines and tubes remain in expected positions. No evident residual pneumothor ax.
--- NOTE | ~2020-12-30 | CT_ITS ---
EXAMINATION: CT brain wo con DATE: 02/16/2021 14:07 INDICATION: Sepsis. TECHNIQUE: Computed tomography (CT) of the head was performed without intravenous contrast. The mA wa s adjusted according to patient size. Iterative reconstruction technique was employed. The dose-lengt h product was 605.33 mGy-cm. COMPARISON: None FINDINGS: There is no intracranial hemorrhage, acute infarction, or abnormal intracranial mass lesion . The ventricles are normal in size. There is mucosal thickening in the paranasal sinuses. The orbits are normal. There are bilateral otomastoid effusions. IMPRESSION: 1. Normal brain. 2. Bilateral otomastoid effusions. Reviewed, dictated and finalized at location A.
--- NOTE | ~2020-12-30 | XR_ITS ---
EXAMINATION: XR chest 1V portable DATE: 01/30/2021 08:09 INDICATION: Respiratory failure TECHNIQUE: frontal view of the chest was obtained. COMPARISON: Chest radiograph dated 01/29/2021 FINDINGS: Endotracheal tube tip 5.9 cm above the lobito. Nasogastric tube tip in proximal side port in the body of the stomach. Left upper extremity peripherally inserted central venous catheter (PICC) tip at th e superior cavoatrial junction. Unchanged apically directed right chest tube. Patient is rotated towards the right with the left breast superimposed over the medial side of the ri ght hemithorax. Persistent diffuse interstitial and hazy airspace opacities throughout both lungs wit h more dense consolidation with some air bronchograms in the bilateral infrahilar regions. Small amou nt of pneumomediastinum. No pneumothorax or pleural effusion. Heart size is normal. IMPRESSION: 1. Unchanged diffuse bilateral lung disease consistent with pneumonia. 2. Small amount of pneumomediastinum. No evident pneumothorax. Reviewed, dictated and finalized at location D.
--- NOTE | ~2020-12-30 | US_ITS ---
EXAMINATION: US venous doppler [facility] DATE: 01/24/2021 17:00 INDICATION: Tachycardia TECHNIQUE: Hdz scale images without and with compression and Doppler images of the bilateral lower e xtremity veins were obtained. COMPARISON: None FINDINGS: The right common femoral vein, profunda femoral vein, femoral vein, popliteal vein, peroneal trunk, p osterior tibial veins, and greater saphenous vein are patent. The left common femoral vein, profunda femoral vein, femoral vein, popliteal vein, peroneal trunk, po sterior tibial veins, and greater saphenous vein are patent. IMPRESSION: 1. Patent bilateral lower extremity veins. No evidence of deep venous thrombosis. Reviewed, dictated and finalized at location A. IMPRESSION: 1. Patent bilateral lower extremity veins. No evidence of deep venous thrombosi s.
--- NOTE | ~2020-12-30 | XR_ITS ---
EXAMINATION: XR chest 1V portable EXAM DATE: 02/03/2021 12:30 INDICATION: Resp Failure ISO precautions. TECHNIQUE: Portable AP frontal chest x-ray was obtained. Comparison is made to prior examination from 02/02/2021. FINDINGS: Endotracheal tube tip is 4.5 centimeters above the lobito. Feeding tube is in position. Th ere is a left-sided PICC line in position, tip at the cavoatrial junction. There is a right-sided shimon st tube. Diffuse abnormal reticulation, pneumonia and/or edema. There are no sizable pleural effusions. The re is no pneumothorax suspected. The cardiomediastinal silhouette is prominent but magnified on thi s AP technique. The bones and soft tissues are unremarkable. There is no significant interval change compared to prior exam. IMPRESSION: 1. Line and tube(s) in position. 2. Diffuse pneumonia and/or edema unchanged. Reviewed, dictated and finalized at location A.
--- NOTE | ~2020-12-30 | XR_ITS ---
XR chest 1V portable DATE: 02/02/2021 10:27 INDICATION: Respiratory failure TECHNIQUE: Portable AP chest on 02/02/2021 at 1020 hours COMPARISON: 02/01/2021 portable AP chest at 0956 hours FINDINGS: Right thoracostomy tube is again noted in the lateral right apical area. There is no pneumo thorax. Persistent severe diffuse bilateral pulmonary infiltrates without improvement since 02/01/2021. Left upper extremity PIC catheter overlies upper right atrium. ET tube in satisfactory position 4.5 cm above lobito. NG tube in gastric fundus. IMPRESSION: No significant change since 02/01/2021 Reviewed, dictated and finalized at location B.
--- NOTE | ~2020-12-30 | XR_ITS ---
EXAMINATION: XR chest 1V portable INDICATION: Respiratory failure TECHNIQUE: Portable AP chest at 0512 hours COMPARISON: 02/13/2021 FINDINGS: The endotracheal tube ends approximately 5.3 cm above the lobito. The nasogastric tube is i n the stomach. Two right-sided chest tubes are unchanged in position. No pneumothorax is identified. A right upper extremity PICC ends with its tip in the proximal right atrium. Diffuse interstitial and airspace opacities persist throughout all lung zones without significant change. The cardiomediastin al silhouette is stable. IMPRESSION: 1. Stable diffuse lung disease, consistent with pneumonia and/or pulmonary edema and/or acute respira tory distress syndrome (ARDS). 2. Two right-sided chest tubes in position without evidence of pneumothorax. Reviewed, dictated and finalized at location A. IMPRESSION: 1. Stable diffuse lung disease, consistent with pneumonia and/or pulmonary leann a and/or acute respiratory distress syndrome (ARDS). 2. Two right-sided chest tubes in position without evidence of pneumothorax.
--- NOTE | ~2020-12-30 | XR_ITS ---
XR chest 1V portable 01/16/2021 09:56 Indication: CovidPneumonia. Hypoxic respiratory failure. Procedure: AP portable chest Comparison: Comparison to multiple prior studies sequentially, with oldest reviewed study dated 01/13. Findings: Right apical chest tube position unchanged. Small right apical pneumothorax. There is a pne umomediastinum. There is developing subcutaneous emphysema of the neck and bilateral chest wall, righ t greater than left. NG tube in the stomach. The endotracheal tube tip 4.9 cm above the lobito. Exten sive bilateral airspace disease, compatible with pneumonia. Impression: 1: Persistent extensive bilateral airspace disease, compatible with pneumonia. 2: Small residual right apical pneumothorax with stable position to chest tube. 3: Pneumomediastinum with developing subcutaneous emphysema of the neck and chest wall. Reviewed, dictated and finalized at location A. Impression: 1: Persistent extensive bilateral airspace disease, compatible with pneumonia. 2: Small residual right apical pneumothorax with stable position to chest tube. 3: Pneumomediastinum with developing subcutaneous emphysema of the neck and ch est wall.
--- NOTE | ~2020-12-30 | XR_ITS ---
EXAMINATION: XR chest 1V portable EXAM DATE: 01/03/2021 11:59 INDICATION: Hypoxia. TECHNIQUE: Portable AP frontal chest x-ray was obtained. Correlation is made to pulmonary CT 12/30/2020 . FINDINGS: Moderate amount of right-sided, small to moderate amount of left-sided acute airspace disea se, most likely COVID pneumonia correlating with prior pulmonary CT. No pneumothorax or pleural effus ion. Cardiomediastinal silhouette is normal. There are no osseous abnormalities identified. IMPRESSION: COVID pneumonia, probably some interval progression correlating to recent CT. Reviewed, dictated and finalized at location A.
--- NOTE | ~2020-12-30 | XR_ITS ---
XR chest 1V portable 02/08/2021 13:42 Indication: Endotracheal tube placement Procedure: AP view of the chest Comparison: Comparison to multiple prior studies sequentially, with oldest reviewed study dated 01/23. Findings: Endotracheal tube tip 5.3 cm above the lobito. NG tube in the stomach. Left central line ti p in the SVC. There is an enlarging right pneumothorax with mediastinal shift to the left. Extensive bilateral airspace disease, compatible with pneumonia and/or edema. Right apical chest tube position unchanged. Impression: 1: Enlarging right pneumothorax with mediastinal shift to the left. 2: Persistent diffuse bilateral airspace disease which may represent pneumonia and/or edema. Reviewed, dictated and finalized at location A. Impression: 1: Enlarging right pneumothorax with mediastinal shift to the left. 2: Persistent diffuse bilateral airspace disease which may represent pneumonia and/or edema.
--- NOTE | ~2020-12-30 | XR_ITS ---
EXAMINATION: XR chest 1V portable INDICATION: Respiratory failure TECHNIQUE: Portable AP chest at 0519 hours COMPARISON: 02/19/2021 FINDINGS: The endotracheal tube ends 5.6 cm above the lobito. The nasogastric tube is in the stomach. A right-sided chest tube courses towards the right lung apex. A left upper extremity PICC ends with its tip at the superior cavoatrial junction. There is no pleural effusion or pneumothorax. Patchy air space opacities persist throughout all lung zones with slight improvement. The cardiomediastinal silh ouette is normal. IMPRESSION: 1. Diffuse lung disease with interval improvement, consistent with pneumonia and/or pulmonary edema a nd/or acute respiratory distress syndrome (ARDS). Reviewed, dictated and finalized at location A. IMPRESSION: 1. Diffuse lung disease with interval improvement, consistent with pneumonia an d/or pulmonary edema and/or acute respiratory distress syndrome (ARDS).
--- NOTE | ~2020-12-30 | XR_ITS ---
EXAMINATION: XR chest 1V portable DATE: 02/23/2021 06:02 INDICATION: Respiratory failure TECHNIQUE: frontal view of the chest was obtained. COMPARISON: Chest radiograph dated 02/22/2021 FINDINGS: Endotracheal tube tip 5.4 cm above the lobito. Nasogastric tube tip in proximal side port in the stom ach. Apically directed right chest tube. No evident pneumothorax. Diffuse hazy airspace and coarse in terstitial opacities throughout both lungs. No definite pleural effusion. The cardiomediastinal silho uette is normal. Visualized bones and soft tissues are unremarkable. IMPRESSION: 1. Diffuse bilateral lung disease which could represent pulmonary edema and/or pneumonia. Reviewed, dictated and finalized at location A.
--- NOTE | ~2020-12-30 | XR_ITS ---
EXAMINATION: XR chest 1V portable DATE: 02/07/2021 15:28 INDICATION: Respiratory distress. TECHNIQUE: A single frontal view of the chest was obtained. COMPARISON: Chest single view at 5:19 AM FINDINGS: There are airspace and interstitial opacities throughout the lungs bilaterally. No pleural effusion or pneumothorax. The heart size is normal. The nasogastric tube tip is in the stomach. The e ndotracheal tube tip is 4.8 cm above the lobito. A left upper extremity peripherally inserted central venous catheter (PICC) is seen with tip at the superior cavoatrial junction. An unchanged right-side d chest tube is noted. IMPRESSION: 1. Stable diffuse lung disease, consistent with pneumonia versus acute respiratory distress syndrome (ARDS). Reviewed, dictated and finalized at location A. IMPRESSION: 1. Stable diffuse lung disease, consistent with pneumonia versus acute respirat ory distress syndrome (ARDS).
--- NOTE | ~2020-12-30 | XR_ITS ---
XR chest 1V portable DATE: 01/26/2021 05:44 INDICATION: Covid pneumonia. Intubation. TECHNIQUE: Portable AP chest on 01/2021 at 0519 hours COMPARISON: 02/11/2021 portable AP chest at 0508 hours FINDINGS: ET tube is 4.5 cm above lobito. NG tube in gastric fundus. Left upper extremity PIC catheter tip overlies upper right atrium. Diffuse bilateral pulmonary infiltrates are again noted consistent with extensive bilateral pneumonia . No pneumothorax or pleural effusion is evident. Diffuse osteopenia. IMPRESSION: No significant change of extensive bilateral pulmonary infiltrates since 01/25/2021 Reviewed, dictated and finalized at location A.
--- NOTE | ~2020-12-30 | XR_ITS ---
EXAMINATION: XR chest 1V portable DATE: 02/08/2021 14:39 INDICATION: Right pneumothorax. Right-sided chest tube placement. TECHNIQUE: A single frontal view of the chest was obtained. COMPARISON: Chest single view at 1:34 PM FINDINGS: There are airspace opacities and coarse interstitial opacities throughout the lungs bilater ally. There is a small right pneumothorax. Two right-sided chest tubes are noted. The endotracheal tu be tip is 5.1 cm above the lobito. A left upper extremity peripherally inserted central venous cathet er (PICC) is seen with tip at the superior cavoatrial junction. A nasogastric tube tip is in the stom ach. IMPRESSION: 1. Small right pneumothorax with improvement status post placement of a second chest tube. 2. Diffuse lung disease, consistent with pneumonia versus acute respiratory distress syndrome (ARDS). Reviewed, dictated and finalized at location A. IMPRESSION: 1. Small right pneumothorax with improvement status post placement of a second chest tube. 2. Diffuse lung disease, consistent with pneumonia versus acute respiratory dis tress syndrome (ARDS).
--- NOTE | ~2020-12-30 | XR_ITS ---
EXAMINATION: XR chest 1V portable DATE: 02/12/2021 05:48 INDICATION: Respiratory failure. TECHNIQUE: A single frontal view of the chest was obtained. COMPARISON: Chest single view 02/11/2021 FINDINGS: There are interstitial and airspace opacities throughout the lungs bilaterally. No pleural effusion or pneumothorax. Two right-sided chest tubes are noted. The heart size is normal. The endotr acheal tube tip is 4.8 cm above the lobito. The nasogastric tube tip is in the stomach. A left upper extremity peripherally inserted central venous catheter (PICC) is seen with tip at the superior cavoa trial junction. IMPRESSION: 1. Stable diffuse lung disease, consistent with pneumonia versus acute respiratory distress syndrome (ARDS). 2. No pneumothorax. Two right-sided chest tubes in expected positions. Reviewed, dictated and finalized at location A. IMPRESSION: 1. Stable diffuse lung disease, consistent with pneumonia versus acute respirat ory distress syndrome (ARDS). 2. No pneumothorax. Two right-sided chest tubes in expected positions.
--- NOTE | ~2020-12-30 | XR_ITS ---
EXAMINATION: XR chest 1V portable DATE: 01/23/2021 05:52 INDICATION: COVID . Pneumothorax. TECHNIQUE: frontal view of the chest was obtained. COMPARISON: Chest radiograph dated 01/22/21 FINDINGS: Endotracheal tube tip 4.4 cm above the lobito. Nasogastric tube tip in proximal side port in the body of the stomach. Right internal jugular central venous catheter with distal tip at the high right atr ium. Unchanged apically directed right chest tube. Diffuse groundglass opacities throughout both lungs. Superimposed small patchy airspace opacities als o throughout the right lung and in the left lower lung zone and perihilar region. No evident pneumoth orax or definitive pleural effusion. Heart size is normal. IMPRESSION: 1. Lines and tubes in expected positions. 2. Diffuse bilateral lung disease consistent with COVID pneumonia. Reviewed, dictated and finalized at location A.
--- NOTE | ~2020-12-30 | XR_ITS ---
EXAMINATION: XR chest 1V portable DATE: 01/22/2021 05:42 INDICATION: COVID. Pneumothorax. TECHNIQUE: frontal view of the chest was obtained. COMPARISON: Chest radiograph dated 01/21/2021 FINDINGS: Endotracheal tube tip 4.4 cm above the lobito. Nasogastric tube tip in proximal side port in the body of the stomach. Unchanged apically directed right chest tube. Left upper extremity peripherally inse rted central venous catheter (PICC) tip at the superior cavoatrial junction. Small amount of residual right paratracheal pneumomediastinum. No pneumothorax. Diffuse interstitial and airspace opacities throughout both lungs consistent with pneumonia. No pleural effusion. The card iomediastinal silhouette is normal. Continued significant decrease in the amount of soft tissue gas a t the upper chest. IMPRESSION: 1. Lines and tubes in expected position as detailed above. 2. Diffuse bilateral lung disease consistent with COVID pneumonia. 3. Persistent small amount of pneumomediastinum and decrease in chest wall soft tissue gas. No pneumo thorax. Reviewed, dictated and finalized at location A. IMPRESSION: 1. Lines and tubes in expected position as detailed above. 2. Diffuse bilateral lung disease consistent with COVID pneumonia. 3. Persistent small amount of pneumomediastinum and decrease in chest wall soft tissue gas. No pneumothorax.
--- NOTE | ~2020-12-30 | CT_ITS ---
EXAMINATION: CT soft tiss nk chst ab pel wo DATE: 02/16/2021 14:07 INDICATION: Sepsis. TECHNIQUE: Computed tomography (CT) of the neck, chest, abdomen, and pelvis was performed without int ravenous contrast. Automated exposure control and iterative reconstruction technique were employed. T lacey dose-length product was 1947.65 mGy-cm. COMPARISON: chest CT 12/30/20 FINDINGS: NECK CT: There is mucosal thickening in the paranasal sinuses. There are bilateral otomastoid effusions. There are no pathologically enlarged lymph nodes. CHEST CT: There are diffuse septal thickening and groundglass opacities in the lungs. There are airspace opacit ies in the lower lobes with air bronchograms. There is a chronic pneumatocele in the right lower lobe . There is a small left pleural effusion. The heart size is normal. No pericardial effusion. The endo tracheal tube tip is in expected position in the trachea. The nasogastric tube tip is in the stomach. Two right-sided chest tubes are noted. Pneumomediastinum is noted. A left upper extremity peripheral ly inserted central venous catheter (PICC) is seen with tip in the right atrium. There is mild medias tinal lymphadenopathy, likely reactive. ABDOMEN/PELVIS CT: The liver is normal. There are changes of cholecystectomy. The pancreas, spleen, adrenal glands, and kidneys are normal. A rectal tube is noted. There is a Garvey catheter in the bladder. There is divert iculosis of the colon without evidence of diverticulitis. The appendix is normal. There is a small vo lume of pelvic ascites. Body wall edema is noted. There is gas within the fat anterior to the liver a nd stomach that is contiguous with the pneumomediastinum. There is mild lumbar spondylosis. IMPRESSION: 1. Severe diffuse lung disease, likely a combination of pneumonia and acute respiratory distress synd raegan (ARDS). 2. No pneumothorax. Two right-sided chest tubes in expected positions. 3. Pneumomediastinum. 4. Small left pleural effusion. 5. Small volume of pelvic ascites. Reviewed, dictated and finalized at location A. IMPRESSION: 1. Severe diffuse lung disease, likely a combination of pneumonia and acute res piratory distress syndrome (ARDS). 2. No pneumothorax. Two right-sided chest tubes in expected positions. 3. Pneumomediastinum. 4. Small left pleural effusion. 5. Small volume of pelvic ascites.
--- NOTE | ~2020-12-30 | XR_ITS ---
XR chest 1V portable 02/08/2021 05:50 Indication: Respiratory distress Procedure: AP portable chest Comparison: Comparison to multiple prior studies sequentially, with oldest reviewed study dated 01/23. Findings: Endotracheal tube 5 cm above the lobito. NG tube in the stomach. Central line tip in the SV C. Heart size normal. Persistent diffuse bilateral airspace disease unchanged. No new right pneumotho rax. No significant mediastinal shift. No significant effusion. Stable position to right apical chest tube. Impression: 1: New right pneumothorax. No mediastinal shift. 2: Persistent diffuse bilateral airspace disease which may represent pneumonia and/or edema. Dr. Carlo To discussed with Jany from the ICU at 02/08/2021 07:47 CDT. Reviewed, dictated and finalized at location A. Impression: 1: New right pneumothorax. No mediastinal shift. 2: Persistent diffuse bilateral airspace disease which may represent pneumonia and/or edema. Dr. Carlo To discussed with Jany from the ICU at 02/08/2021 07:47 CDT.
--- NOTE | ~2020-12-30 | XR_ITS ---
EXAMINATION: XR chest 1V portable EXAM DATE: 02/04/2021 06:04 INDICATION: Respiratory failure. Isolation precautions. TECHNIQUE: Portable AP frontal chest x-ray was obtained. Comparison is made to prior examination from 02/03, 02/02. FINDINGS: Endotracheal tube tip is 4.5 centimeters above the lobito. Feeding tube is in position. Th ere is a left-sided PICC line in position, tip at the cavoatrial junction. There is a right-sided shimon st tube. Diffuse abnormal reticulation, pneumonia and/or edema. There are no sizable pleural effusions. The re is no pneumothorax suspected. The cardiomediastinal silhouette is prominent but magnified on thi s AP technique. The bones and soft tissues are unremarkable. There is no significant interval change compared to prior exam. IMPRESSION: 1. Line and tube(s) in position. 2. Diffuse pneumonia and/or edema unchanged. Reviewed, dictated and finalized at location A.
--- NOTE | ~2020-12-30 | XR_ITS ---
EXAMINATION: XR chest 1V portable DATE: 02/23/2021 11:04 INDICATION: Desaturations post chest compression TECHNIQUE: frontal view of the chest was obtained. COMPARISON: Chest radiograph dated 02/23/2021 FINDINGS: Endotracheal tube tip 5.6 cm above the lobito. Nasogastric tube tip in proximal side port in the body of the stomach. Unchanged apically directed right chest tube. Left upper extremity peripherally inse rted central venous catheter (PICC) tip at the superior cavoatrial junction. Interval increase in size of a small right pleural effusion which extends circumferentially around th e periphery of the partially collapsed right lung. There is increasing density throughout the right l jonatan consistent with persistent diffuse lung disease is seen throughout the left lung but accentuated on the right by atelectasis resulting from the partial collapse. No pleural effusion or left-sided pn eumothorax. The cardiomediastinal silhouette is normal with no midline shift or depression of the rig ht hemidiaphragm to suggest tension of the pneumothorax. Persistent small amount of pneumomediastinum . IMPRESSION: 1. Recurrent small right pneumothorax with unchanged apically directed right chest tube in unchanged position. 2. Persistent diffuse bilateral lung disease consistent with pneumonia, pulmonary edema and/or ARDS w ith now significantly increased asymmetric opacification of the right lung likely resulting from wors ening atelectasis resulting from the pneumothorax. 3. Small amount of pneumomediastinum. Reviewed, dictated and finalized at location A. IMPRESSION: 1. Recurrent small right pneumothorax with unchanged apically directed right ch est tube in unchanged position. 2. Persistent diffuse bilateral lung disease consistent with pneumonia, pulmona ry edema and/or ARDS with now significantly increased asymmetric opacification of the right lung likely resulting from worsening atelectasis resulting from th e pneumothorax. 3. Small amount of pneumomediastinum.
--- NOTE | ~2020-12-30 | XR_ITS ---
XR chest 1V portable DATE: 01/31/2021 05:44 INDICATION: Respiratory failure TECHNIQUE: Portable AP chest on 02/10/2021 at 0520 hours COMPARISON: 01/30/2021 portable AP chest at 0756 hours FINDINGS: There are diffuse bilateral pulmonary infiltrates, most prominent in the lower lung zones. There is mild improvement since 01/30/2021. Right thoracostomy tube again noted at lateral right apical area. No evidence of pneumothorax. ET tube in satisfactory position 4.4 cm above lobito. NG tube in gastric fundus. Left upper extremity PIC catheter tip overlies the upper right atrium. IMPRESSION: Mild interval improvement of extensive bilateral pulmonary infiltrates since 01/30/2021 Right thoracostomy tube; no evidence of pneumothorax Reviewed, dictated and finalized at location A. IMPRESSION: Mild interval improvement of extensive bilateral pulmonary infiltra juan since 01/30/2021 Right thoracostomy tube; no evidence of pneumothorax
--- NOTE | ~2020-12-30 | XR_ITS ---
EXAMINATION: XR chest 1V portable DATE: 01/13/2021 05:40 INDICATION: COVID-19 pneumonia. Acute respiratory failure. TECHNIQUE: A single frontal view of the chest was obtained. COMPARISON: Chest single view 01/12/2021, chest CT 12/30/2020 FINDINGS: There is mild elevation of right hemidiaphragm. There are airspace and interstitial opaciti es in all lung zones bilaterally. No pleural effusion or pneumothorax. The heart size is normal. Pneu momediastinum is noted. IMPRESSION: 1. Stable diffuse lung disease, consistent with COVID-19 pneumonia. 2. New pneumomediastinum. Reviewed, dictated and finalized at location A.
--- NOTE | ~2020-12-30 | XR_ITS ---
EXAMINATION: XR chest 1V portable DATE: 01/20/2021 06:00 INDICATION: COVID pneumonia TECHNIQUE: frontal view of the chest was obtained. COMPARISON: Chest radiograph dated 01/19/2021 FINDINGS: Endotracheal tube tip 3.3 cm above the lobito. Nasogastric tube tip in proximal side port in the body of the stomach. Apically directed right chest tube. Small lung volumes. There appears be a small amount of residual pneumomediastinum as well as some res idual bilateral chest wall emphysema extending into the right upper arm. No discernible residual pneu mothorax. Diffuse groundglass opacities throughout both lungs consistent with pneumonia. No pleural e ffusion. Heart size is normal. IMPRESSION: 1. Diffuse bilateral groundglass opacities consistent with pneumonia versus less likely pulmonary alden ma. 2. Lines and tubes including right chest tube remain in expected position. No residual right pneumoth orax. Reviewed, dictated and finalized at location A. IMPRESSION: 1. Diffuse bilateral groundglass opacities consistent with pneumonia versus les s likely pulmonary edema. 2. Lines and tubes including right chest tube remain in expected position. No r esidual right pneumothorax.
--- NOTE | ~2020-12-30 | XR_ITS ---
EXAMINATION: XR chest 1V portable INDICATION: Respiratory failure TECHNIQUE: Portable AP chest at 0509 hours COMPARISON: 02/15/2021 FINDINGS: The endotracheal tube ends 6.5 cm above the lobito. The nasogastric tube is in the stomach. A left upper extremity PICC ends with its tip at the superior cavoatrial junction. Two right-sided c hest tubes are again seen. The inferior chest tube again ends with its side port just inside the pleu ral space. There is no pleural effusion or pneumothorax. Diffuse opacities persist in all lung zones without significant change. The cardiomediastinal silhouette is normal. IMPRESSION: 1. Stable diffuse lung disease, consistent with pneumonia and/or pulmonary edema and/or acute respira tory distress syndrome (ARDS). Reviewed, dictated and finalized at location A. IMPRESSION: 1. Stable diffuse lung disease, consistent with pneumonia and/or pulmonary leann a and/or acute respiratory distress syndrome (ARDS).
--- NOTE | ~2020-12-30 | US_ITS ---
EXAMINATION: US renal BI DATE: 02/20/2021 15:27 INDICATION: Funguria TECHNIQUE: Multiple grayscale and Doppler ultrasound images of the kidneys were obtained. COMPARISON: None. FINDINGS: The right kidney measures 13.2 x 5.8 x 6.2 cm. The left kidney measures 9.1 x 5.8 x 5.8 cm. The kidneys demonstrate normal parenchymal echogenicity. There is minimal right hydronephrosis. The bladder is partially decompressed by a Garvey catheter but appears normal. IMPRESSION: 1. Minimal right hydronephrosis. Reviewed, dictated and finalized at location A.
--- NOTE | ~2020-12-30 | US_ITS ---
US abdomen limited DATE: 01/22/2021 11:08 INDICATION: Elevated liver function tests TECHNIQUE: Real-time imaging of liver, pancreas, gallbladder fossa COMPARISON: 02/28/2014 gallbladder ultrasound 03/08/2014 MRI abdomen; 4.7 cm hepatic hemangioma was reported, in addition to cholelithiasis FINDINGS: The gallbladder is surgically absent. The common bile duct measures approximately 6.2 mm, w ithin normal range considering the postcholecystectomy state. Normal hepatopedal portal venous flow direction. No hepatic space-occupying mass lesion is demonstrat ed. Normal appearance of the pancreas. IMPRESSION: Status post cholecystectomy Reviewed, dictated and finalized at Location A. Reviewed, dictated and finalized at location B. IMPRESSION: Status post cholecystectomy
--- NOTE | ~2020-12-30 | XR_ITS ---
EXAMINATION: XR chest 1V portable INDICATION: Respiratory failure TECHNIQUE: Portable AP chest at 0302 hours COMPARISON: 02/17/2021 FINDINGS: The endotracheal tube is 5.2 cm above the lobito. The nasogastric tube is in the stomach. A right upper extremity PICC ends with its tip at the superior cavoatrial junction. Two right-sided ch est tubes are again noted. The inferior most chest tube appears to end with its proximal side port in the thoracic wall just adjacent to the pleural space. Diffuse airspace opacities persist throughout all lung zones with slight interval improvement. There is no pleural effusion or pneumothorax. The ca rdiac mediastinal silhouette is stable. IMPRESSION: 1. Diffuse lung disease with interval improvement, consistent with pneumonia and/or pulmonary edema a nd/or acute respiratory distress syndrome (ARDS). 2. Inferior right chest tube with its proximal side port in the thoracic wall just adjacent to the pl eural space. Reviewed, dictated and finalized at location A. IMPRESSION: 1. Diffuse lung disease with interval improvement, consistent with pneumonia an d/or pulmonary edema and/or acute respiratory distress syndrome (ARDS). 2. Inferior right chest tube with its proximal side port in the thoracic wall j ust adjacent to the pleural space.
--- NOTE | ~2020-12-30 | XR_ITS ---
XR chest PICC line DATE: 01/20/2021 17:38 INDICATION: PICC line placement TECHNIQUE: Portable AP view on 01/20/2021 at 1732 hours COMPARISON: 01/20/2021 portable AP chest FINDINGS: ET tube in satisfactory position 4.8 cm above lobtio. NG tube in gastric fundus. Left upper stomach the catheter tip overlies the very upper right atrium. Heart size appears within normal range. There is diffuse bilateral pulmonary infiltrate, consistent w ith pneumonia and/or pulmonary edema. There is minimal if any pleural effusion. Bilateral subcutaneous emphysema of the chest. Right chest tube. There is apparent pneumothorax is no tanna. IMPRESSION: Right upper extremity PIC catheter tip at superior aspect of right atrium ET and NG tubes in satisfactory position Right chest tube; bilateral subcutaneous emphysema of the chest, without definite pneumothorax Diffuse bilateral pulmonary infiltrates which may be due to pneumonia and/or pulmonary edema Reviewed, dictated and finalized at Location A. Reviewed, dictated and finalized at location B. IMPRESSION: Right upper extremity PIC catheter tip at superior aspect of right atrium ET and NG tubes in satisfactory position Right chest tube; bilateral subcutaneous emphysema of the chest, without defini te pneumothorax Diffuse bilateral pulmonary infiltrates which may be due to pneumonia and/or pu lmonary edema
--- NOTE | ~2020-12-30 | XR_ITS ---
EXAMINATION: XR chest 1V portable DATE: 02/13/2021 05:49 INDICATION: Respiratory failure. TECHNIQUE: A single frontal view of the chest was obtained. COMPARISON: Chest single view 02/12/2021 FINDINGS: There are airspace and interstitial opacities throughout the lungs bilaterally. No pleural effusion or pneumothorax. Two right-sided chest tubes are noted. The heart size is normal. The endotr acheal tube tip is 5.4 cm above the lobito. The nasogastric tube tip is in the stomach. A left upper extremity peripherally inserted central venous catheter (PICC) is seen with tip in the proximal right atrium. IMPRESSION: 1. Stable diffuse lung disease, consistent with pneumonia versus acute respiratory distress syndrome (ARDS). 2. No pneumothorax. Two right-sided chest tubes in expected positions. Reviewed, dictated and finalized at location A. IMPRESSION: 1. Stable diffuse lung disease, consistent with pneumonia versus acute respirat ory distress syndrome (ARDS). 2. No pneumothorax. Two right-sided chest tubes in expected positions.
--- NOTE | ~2020-12-30 | XR_ITS ---
XR chest 1V portable DATE: 01/12/2021 11:25 INDICATION: Increased oxygen requirement TECHNIQUE: Portable AP chest on 01/12/2021 at 1058 hours COMPARISON: 01/10/2021 portable AP chest FINDINGS: There are are extensive bilateral pulmonary infiltrates, right greater than left, increased bilaterally since 01/10/2021. Moderate elevation right diaphragm. Heart size is within normal range. IMPRESSION: Extensive increased bilateral pulmonary infiltrates since 01/10/2021 Reviewed, dictated and finalized at location A.
--- NOTE | ~2020-12-30 | XR_ITS ---
EXAMINATION: XR chest 1V portable DATE: 02/23/2021 10:32 INDICATION: Desaturations TECHNIQUE: frontal view of the chest was obtained. COMPARISON: Chest radiograph dated 02/23/2021 FINDINGS: Endotracheal tube tip 5.3 cm above the lobito. Nasogastric tube tip in proximal side port in the body of the stomach. Apically directed right chest tube. Left upper extremity peripherally inserted centr al venous catheter (PICC) tip at the superior cavoatrial junction. No evident pneumothorax or pleural effusion. Again seen are diffuse interstitial and airspace opaciti es throughout both lungs with more dense consolidation unchanged left lower lung zone but appearing t o increase in the right midlung zone. Heart size is normal. There is some lucency along the margins o f the lobito and left mainstem bronchus consistent with small amount of pneumomediastinum. IMPRESSION: 1. Diffuse bilateral lung disease which could represent pulmonary edema and/or pneumonia with some pr ogression in the right midlung zone. 2. Small amount of pneumomediastinum. No definitive pneumothorax with unchanged right chest tube. Reviewed, dictated and finalized at location A. IMPRESSION: 1. Diffuse bilateral lung disease which could represent pulmonary edema and/or pneumonia with some progression in the right midlung zone. 2. Small amount of pneumomediastinum. No definitive pneumothorax with unchanged right chest tube.
--- NOTE | ~2020-12-30 | XR_ITS ---
EXAMINATION: XR chest 1V portable EXAM DATE: 02/22/2021 06:51 INDICATION: Respiratory failure. TECHNIQUE: Portable AP frontal chest x-ray was obtained. Comparison is made to prior examination from 02/21/2021. FINDINGS: Endotracheal tube tip is 6 centimeters above the lobito. Feeding tube is in position. Ther e is a left-sided PICC line. Diffuse abnormal reticulation is unchanged, likely edema and/or pneumonia. There are no sizable pleu ral effusions. There is no pneumothorax suspected. Cardiomediastinal silhouette is normal. The b ones and soft tissues are unremarkable. There is no significant interval change compared to prior exam. IMPRESSION: 1. Line and tube(s) in position. 2. Diffuse pneumonia and/or edema unchanged. Reviewed, dictated and finalized at location A.
--- NOTE | ~2020-12-30 | XR_ITS ---
XR chest 1V portable DATE: 02/05/2021 13:45 INDICATION: Elevated peak pressures. Respiratory failure. TECHNIQUE: Portable AP chest on 02/05/2021 at 1335 hours COMPARISON: 02/05/2021 portable AP chest FINDINGS: ET tube in satisfactory position 5 cm above lobito. NG tube in gastric fundus. Left upper e xtremity PIC catheter tip overlies the upper right atrium. Right thoracostomy tube is unchanged in position. No pneumothorax is evident. There are persistent diffuse bilateral pulmonary infiltrates consistent with some air bronchograms in the lower lobes, especially on the left. IMPRESSION: Persistent diffuse bilateral pulmonary infiltrates with greatest involvement of the lower lobes, especially on the left Reviewed, dictated and finalized at location B. IMPRESSION: Persistent diffuse bilateral pulmonary infiltrates with greatest in volvement of the lower lobes, especially on the left
--- NOTE | ~2020-12-30 | XR_ITS ---
EXAMINATION: XR chest 1V portable INDICATION: Respiratory failure TECHNIQUE: Portable AP chest at 0505 hours COMPARISON: 02/16/2021 FINDINGS: The endotracheal tube ends 6.2 cm above the lobito. The nasogastric tube is in the stomach. A left upper extremity PICC ends with its tip at the superior cavoatrial junction. Right-sided chest tubes are again noted. The inferior chest tube has been partially retracted and the side port now ap pears to end outside the pleural space. There is no pleural effusion or pneumothorax. Diffuse opaciti es persist throughout all lung zones without significant change. IMPRESSION: 1. Stable diffuse lung disease, consistent with pneumonia and/or pulmonary edema and/or acute respira tory distress syndrome (ARDS). 2. Side port of the inferior right chest tube now outside the pleural space. Reviewed, dictated and finalized at location A. IMPRESSION: 1. Stable diffuse lung disease, consistent with pneumonia and/or pulmonary leann a and/or acute respiratory distress syndrome (ARDS). 2. Side port of the inferior right chest tube now outside the pleural space.
--- NOTE | ~2020-12-30 | XR_ITS ---
XR chest 1V portable 02/07/2021 05:43 Indication: Respiratory failure. Pneumonia. Procedure: AP portable chest Comparison: Comparison to multiple prior studies sequentially, with oldest reviewed study dated 01/23. Findings: Endotracheal tube tip 3.5 cm above the lobito. NG tube in the stomach. Right apical chest t ube present. PICC line tip mass cc. Diffuse bilateral airspace disease. No pneumothorax. No significa nt effusion. Impression: 1: Stable diffuse bilateral airspace disease, compatible with pneumonia versus edema and ARDS. Reviewed, dictated and finalized at location A. Impression: 1: Stable diffuse bilateral airspace disease, compatible with pneumonia versus edema and ARDS.
--- NOTE | ~2020-12-30 | XR_ITS ---
EXAMINATION: XR chest 1V portable EXAM DATE: 01/17/2021 10:34 INDICATION: COVID pneumonia, acute hypoxic respiratory failure. TECHNIQUE: Portable AP frontal chest x-ray was obtained. Comparison is made to prior examination from 01/16, 01/15. FINDINGS: There is a right-sided chest tube, appears to be in position. Endotracheal tube tip is 3-4 centimeters above the lobito. Feeding tube is in position. Probable identification of small right apical pneumothorax. Probable pneumomediastinum. There is exte nsive subcutaneous gas throughout the thorax. Diffuse bilateral airspace disease consistent with COVI D pneumonia. There are no sizable pleural effusions. The cardiomediastinal silhouette is promine nt but magnified on this AP technique. The bones and soft tissues are unremarkable. Compared to prior study, increase in the amount of left axillary subcutaneous gas. Otherwise probably no significant interval change. IMPRESSION: 1. Tubes in position. 2. Probable small persistent right apical pneumothorax. 3. Diffuse airspace disease consistent with COVID pneumonia 4. Pneumomediastinum. Extensive subcutaneous gas. Reviewed, dictated and finalized at location A.
--- NOTE | ~2020-12-30 | XR_ITS ---
EXAMINATION: XR abdomen obstructive series DATE: 01/20/2021 08:10 INDICATION: Distended abdomen TECHNIQUE: Frontal supine and upright views of the abdomen were obtained. COMPARISON: None. FINDINGS: Nasogastric tube tip in proximal side port in the body of the stomach. Moderate amount of gas scatter ed throughout the colon. No dilated loops of gas-filled small bowel to suggest obstruction. No free i ntraperitoneal gas. Diffuse bilateral airspace opacities suspicious for pneumonia. Partially visualiz ed right chest tube extending towards the nonvisualized upper lung zone. Likely related to soft tissu e gas at the right chest and abdominal wall and extending to the right upper arm. Right femoral centr al venous catheter with distal tip in the region of the proximal right common iliac vein. Temperature probe within a Garvey catheter projecting over the lower pelvis. IMPRESSION: 1. Nasogastric tube in stomach. No free intraperitoneal gas or dilated gas-filled loops of bowel to suggest obstruction. 2. Diffuse bilateral lung disease consistent with pneumonia. Reviewed, dictated and finalized at location A. IMPRESSION: 1. Nasogastric tube in stomach. No free intraperitoneal gas or dilated gas-haresh led loops of bowel to suggest obstruction. 2. Diffuse bilateral lung disease consistent with pneumonia.
--- NOTE | ~2020-12-30 | US_ITS ---
US retroperitoneal comp 02/16/2021 19:43 Procedure: Realtime transabdominal ultrasound of the kidneys and bladder. Indication: Hematuria Comparison: 01/22/2021 Findings: Renal echotexture is normal bilaterally without contour deforming mass or renal calculus. T here is a 1.6 cm left renal cyst. The right kidney measures 11.5 cm and left kidney measures 11.3 cm. The bladder is decompressed limiting evaluation for bladder wall thickening. Impression: 1: Left renal cyst measuring 1.6 cm. Reviewed, dictated and finalized at location A. Impression: 1: Left renal cyst measuring 1.6 cm.
--- NOTE | ~2020-12-30 | CT_ITS ---
EXAMINATION: CTA chest PE protocol DATE: 12/30/2020 08:20 INDICATION: Shortness of breath TECHNIQUE: Computed tomography angiography (CTA) of the chest was performed with 100 mL Omnipaque-350 intravenous contrast timed to evaluate the pulmonary arteries. Coronal maximum intensity projection 3D-reconstructions were created by the technologist. The dose-length product (DLP) was 295.52 mGy-cm. Automated exposure control and iterative reconstruction technique were employed. COMPARISON: None. FINDINGS: The pulmonary arteries are well-opacified. Respiratory motion artifact limits sensitivity. No central pulmonary embolus is identified. There are widespread groundglass opacities throughout all lung zones, worse in the mid and lower lung zones. There is no pleural effusion or pneumothorax. No pathologically enlarged thoracic lymph nodes are identified. The heart size is normal. There is a 4.1 cm hemangioma in the right hepatic lobe. The gallbladder is surgically absent. There is mild thoraci c spondylosis. IMPRESSION: 1. No central pulmonary embolus identified, sensitivity limited by motion artifact. 2. Patchy bilateral airspace opacities have pattern consistent with COVID 19 pneumonia. Reviewed, dictated and finalized at location B. IMPRESSION: 1. No central pulmonary embolus identified, sensitivity limited by motion artif act. 2. Patchy bilateral airspace opacities have pattern consistent with COVID 19 pn eumonia.
--- NOTE | ~2020-12-30 | XR_ITS ---
EXAMINATION: XR chest 1V portable EXAM DATE: 02/05/2021 05:34 INDICATION: Respiratory failure. Isolation precautions. TECHNIQUE: Portable AP frontal chest x-ray was obtained. Comparison is made to prior examination from 02/04, 02/03. FINDINGS: Endotracheal tube tip is 4.6 centimeters above the lobito. Feeding tube is in position. Th ere is a left-sided PICC line in position, tip at the cavoatrial junction. There is a right-sided shimon st tube. Diffuse abnormal reticulation, pneumonia and/or edema. There are no sizable pleural effusions. The re is no pneumothorax suspected. The cardiomediastinal silhouette is prominent but magnified on thi s AP technique. The bones and soft tissues are unremarkable. There is no significant interval change compared to prior exam. IMPRESSION: 1. Line and tube(s) in position. 2. Diffuse pneumonia and/or edema unchanged. Reviewed, dictated and finalized at location A.
--- NOTE | ~2020-12-30 | US_ITS ---
EXAMINATION: US carotid duplex BI DATE: 01/04/2021 11:05 INDICATION: Syncope TECHNIQUE: Grayscale, color Doppler, and pulsed Doppler images of the cervical carotid arteries were obtained. The degree of vessel stenosis is placed in one of the following categories: normal, <50%, 5 0-69%, >=70% but less than near-occlusion, near-occlusion, or total occlusion. Note that percent sten osis relative to normal distal artery lumen diameter is indirectly measured from velocity measurement s as described by Aj, et al. Radiology 2003; [id number]:340-346. Notes: Normal: Peak systolic velocity <125 centimeters/sec and no plaque <50%. Peak systolic velocity <125 ( EDV <40; ICA/CCA PSV ratio <2.0; used these factors only a tandem lesions or low cardiac output or co ntralateral disease) 50-69 %: PSV 125-230 (EDV 40-100; ratio 2-4) >= 70% but less than near occlusion: PSV greater than 230 (EDV > 100; ratio> 4.0) Near Occlusion: PSV that is variable; markedly narrowed lumen Occlusion: Absent flow on color/spectral Doppler and no lumen on jamil scale. COMPARISON: None. FINDINGS: RIGHT: The right common carotid artery (CCA) peak systolic velocity (PSV) is 81 cm/s. The right internal car otid artery (ICA) PSV is 68 cm/s. The right ICA end-diastolic velocity (EDV) is 21 cm/s. The right IC A/CCA PSV ratio is 0.8. The external carotid artery (ECA) PSV is 81 cm/s. There is antegrade flow in the right vertebral artery. LEFT: The left CCA PSV is 112 cm/s. The left ICA PSV is 62 cm/s. The left ICA EDV is 15 cm/s. The left ICA/ CCA PSV ratio is 0.6. The ECA PSV is 87 cm/s. There is antegrade flow in the left vertebral artery. IMPRESSION: 1. Less than 50% stenosis in the right internal carotid artery by sonographic criteria. 2. Less than 50% stenosis in the left internal carotid artery by sonographic criteria. Reviewed, dictated and finalized at location A. IMPRESSION: 1. Less than 50% stenosis in the right internal carotid artery by sonographic ludwin cao. 2. Less than 50% stenosis in the left internal carotid artery by sonographic eduardo sims.
--- NOTE | ~2020-12-30 | XR_ITS ---
XR chest 1V portable 01/25/2021 05:44 Indication: Pneumothorax. Dyspnea. Pneumonia. Procedure: AP portable chest Comparison: Comparison to multiple prior studies sequentially, with oldest reviewed study dated 05/2020. Findings: Right apical chest tube position unchanged. Persistent diffuse bilateral airspace disease. Developing pneumomediastinum. No definite pneumothorax. Endotracheal tube 5 cm above the lobito. Left subclavian PICC line tip near the cavoatrial junction. Impression: 1: Developing pneumomediastinum. 2: Stable diffuse bilateral airspace disease, compatible with pneumonia. Reviewed, dictated and finalized at location A. Impression: 1: Developing pneumomediastinum. 2: Stable diffuse bilateral airspace disease, compatible with pneumonia.
--- NOTE | ~2020-12-30 | XR_ITS ---
EXAMINATION: XR chest 1V portable INDICATION: Leukocytosis and shortness of breath TECHNIQUE: Portable AP chest at 0947 hours COMPARISON: 01/05/2021 FINDINGS: There are minimal opacities of the mid and lower lung zones. No pleural effusion or pneumot horax is identified. The cardiomediastinal silhouette is normal. IMPRESSION: 1. Minimal opacities of the mid and lower lung zones, consistent with atelectasis versus pneumonia. Reviewed, dictated and finalized at location A. IMPRESSION: 1. Minimal opacities of the mid and lower lung zones, consistent with atelectas is versus pneumonia.
--- NOTE | ~2020-12-30 | XR_ITS ---
EXAMINATION: XR chest 1V portable EXAM DATE: 02/21/2021 05:27 INDICATION: Respiratory failure. TECHNIQUE: Portable AP frontal chest x-ray was obtained. Comparison is made to prior examination from 02/20. FINDINGS: Endotracheal tube tip is 5 centimeters above the lobito. Feeding tube is in position. Ther e is a left-sided PICC line. Diffuse abnormal reticulation is unchanged, likely edema and/or pneumonia. There are no sizable pleu ral effusions. There is no pneumothorax suspected. Cardiomediastinal silhouette is normal. The b ones and soft tissues are unremarkable. There is no significant interval change compared to prior exam. IMPRESSION: 1. Line and tube(s) in position. 2. Diffuse pneumonia and/or edema unchanged. Reviewed, dictated and finalized at location A.
--- NOTE | ~2020-12-30 | XR_ITS ---
XR chest 1V portable 01/15/2021 09:32 Indication: Pneumonia. Acute respiratory hypoxic failure. Procedure: AP portable chest Comparison: 01/14/2021 Findings: There is developing pneumomediastinum. Cannot exclude small pneumothorax. Right chest tube position unchanged. Stable cardiomediastinal silhouette. Diffuse bilateral airspace disease, compatib le with pneumonia. No significant effusion. Endotracheal tube tip 6.4 cm above the lobito. NG tube in the stomach. Impression: 1: Developing pneumomediastinum. Cannot exclude small underlying pneumothorax. Stable position to rig ht apical chest tube. 2: Diffuse bilateral airspace disease, compatible with pneumonia. No significant change. Reviewed, dictated and finalized at location A. Impression: 1: Developing pneumomediastinum. Cannot exclude small underlying pneumothorax. Stable position to right apical chest tube. 2: Diffuse bilateral airspace disease, compatible with pneumonia. No significan t change.
--- NOTE | 2020-12-30 05:58 | ECG_ITS ---
Measurements Intervals Blanket Rate: 107 P: 7 OR: 127 QRS: -8 QRSD: 76 T: 26 QT: 312 QTc: 416 Interpretive Statements SINUS TACHYCARDIA INCOMPLETE RIGHT BUNDLE BRANCH BLOCK LOW QRS VOLTAGE IN PRECORDIAL LEADS LEFT VENTRICULAR HYPERTROPHY BORDERLINE T WAVE ABNORMALITY- ANTEROLAT/INF LEADS BASELINE ARTIFACT- I, II, III, AVR, AVL, AVF ABNORMAL ECG Electronically Signed On 12-30-2020 7:10:02 CDT by Cade Portillo D.O.
[2020-12-30] MEDS: SODIUM CHLORIDE 0.9% IV 1,000 ML 999 ML IV CONT (06:21)
[2020-12-30 06:51] LABS: Basophils Percent Auto 0.2 % (0.2-1.2); Hematocrit 44.9 % (37.0-47.0); Hemoglobin 14.7 g/dL (12.0-15.0); Immature Granulocyte Absolute 0.02 K/mm3 (0.00-0.031); Immature Granulocyte Percent A 0.5 % (0-0.5); Lymphocytes Absolute Auto 0.78 K/mm3 (0.9-3.2); Lymphocytes Percent Auto 18.7 % (18.3-44.2); Mean Corpuscular HGB Conc 32.7 g/dl (32-36); Mean Corpuscular Hemoglobin 26.9 pg (26-34); Mean Corpuscular Volume 82.2 fl (80-100); Mean Platelet Volume 11.3 fl (7.4-10.4); Monocytes Absolute Auto 0.2 K/mm3 (0.1-0.6); Monocytes Percent Auto 4.3 % (2.6-8.5); Neutrophils Absolute Auto 3.2 K/mm3 (1.3-6.7); Neutrophils Percent Auto 76.3 % (45.5-73.1); Red Blood Count 5.46 M/mm3 (4.2-5.4); Red Cell Distribution Width 12.9 % (11.5-14.5); White Blood Count 4.2 K/mm3 (4.5-10.0)
[2020-12-30 07:00] LABS: Add Urine Microscopic? YES; Appearance Urine Clear (Clear); Bilirubin Urine Negative (Negative); Blood Urine Negative (Negative); Color Urine Yellow (Yellow); Glucose Urine UA Negative (Negative); Ketones Urine 1+ mg/dL (Negative); Leukocyte Esterase Ur Negative LEU/UL (Negative); Mucus Urine Rare /lpf; Nitrate Urine Negative (Negative); Protein Urine 2+ mg/dL (Negative); RBC Urine 0-2 /hpf (0-2); Specific Grav Ur 1.017 (1.001-1.035); Squamous Epithelial Cell Urine Occasional /hpf (Few); Urobilinogen Urine Negative mg/dL (<2.0)
[2020-12-30 07:03] LABS: Anion Gap 12 mmol/L (8-16); Blood Urea Nitrogen 9 mg/dL (7-17); Calcium 9.1 mg/dL (8.4-10.2); Carbon Dioxide 26 mmol/L (22-30); Chloride 91 mmol/L (98-107); Estimated CRCL calculation 67 ml/min; Estimated Glomerular Filt Rate > 60; Glucose 157 mg/dL (65-110); Lactic Acid Reflex 1.3 mmol/L (0.7-2.1); Magnesium 1.8 mg/dL (1.6-2.3); Sodium 129 mmol/L (137-145)
[2020-12-30 07:11] LABS: D Dimer 0.72 ug/mL (<0.48)
[2020-12-30 07:13] LABS: Troponin I < 0.012 ng/mL (0.000-0.034)
[2020-12-30 07:16] LABS: Platelet Clumps Present
[2020-12-30 07:27] LABS: Alanine Aminotransferase 69 U/L (4-35); Albumin Level 4.1 g/dL (3.5-5.1); Alkaline Phosphatase 111 U/L (38-126); Aspartate Amino Transferase 96 U/L (14-36); Bilirubin,Total 0.6 mg/dL (0.2-1.3); CRP 2.6 mg/dL (<1.0); Lactate Dehydrogenase 832 U/L (313-618)
[2020-12-30 08:04] LABS: Alveolar/Arterial O2 Gradient 53.8 mmHg; Base Excess ABG -6.7 mEq/l (+/-2.0); Fractional Inspired Oxygen 21 %; HCO3 ABG 15.9 mEq/l (22.0-26.0); Oxygen Content ABG 17.8 %vol (16.0-22.0); Oxygen Saturation ABG 93.9 % (95.0-100.0); Oxyhemoglobin 91.7 % THb (90.0-100.0); PCO2 ABG 24.9 mmHg (35.0-45.0); PO2 ABG 66.1 mmHg (80.0-100.0); PO2 FiO2 Ratio Arterial Blood 3.15 %; Total Hemoglobin 13.8 g/dL (12.0-18.0); pH ABG 7.422 (7.350-7.450)
[2020-12-30 08:05] LABS: Device ROOM AIR; Modified Allen's Test Pass; Site Drawn RIGHT RADIAL
--- NOTE | 2020-12-30 09:47 | ED.GENADULT ---
HPI - General Adult General Chief complaint: Syncope Stated complaint: covid +, dizzy, syncopal Time Seen by Provider: 12/30/20 07:05 History of Present Illness HPI narrative: Patient is 60 years old white female presented to the ED with intermittent syncope, general weakness and nausea started 7 days ago. Patient was tested positive for Covid 5 days ago. 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 Patient requested to be treated with hydrochloric when or sitting does not want to be treated with remdesivir. Related Data Home Medications Medication Instructions Recorded Confirmed B Complex-Vitamin B12 12/25/20 B complex-zinc 12/25/20 Vitamin D3 12/25/20 hydroxychloroquine 12/25/20 omeprazole 12/25/20 Allergies Allergy/AdvReac Type Severity Reaction Status Date / Time codeine Allergy Severe Hives / Verified 12/25/20 12:40 Red Face Review of Systems Review of Systems: CONSTITUTIONAL: Denies fever, chills, or sweats. EYES: Denies visual changes, redness, or discharge. ENT: Denies rhinorrhea, congestion, sore throat, or otalgia. CARDIOVASCULAR: Denies chest pain, palpitations, or edema. RESPIRATORY: Denies cough or dyspnea. GASTROINTESTINAL: Denies abdominal pain, nausea, vomiting, or diarrhea. GENITOURINARY: Denies dysuria or hematuria. SKIN: Denies rash or itching. MUSCULOSKELETAL: Denies back pain, joint pain, or myalgia. NEUROLOGIC: Denies headache, numbness, or weakness. PSYCHIATRIC: Denies anxiety or depression. [facility] Past Medical History Medical History Anxiety Fibroid GERD (gastroesophageal reflux disease) Palpitations Surgical History Surgical History History of hysterectomy Hx laparoscopic cholecystectomy Social History Social History Smoking status: Never smoker Alcohol intake: current Alcohol use details: RARELY Substance use: never Substance use type: does not use Spiritual care concerns: No Exam Narrative: General appearance: Well-developed, well-nourished Skin: Normal color Head: Normocephalic, nontraumatic Eyes: Clear conjunctiva ENT: Oropharynx normal, ears normal, nose normal Neck: Supple, nontender Chest and respiratory: Airway patent, no respiratory distress, no accessory muscle use. Basal rales bilaterally Heart: Tachycardia Abdomen: Soft, nontender, no organomegaly, quiet bowel sounds Vascular: Normal peripheral pulses, normal capillary refill. Musculoskeletal: Normal range of motion, nontender back Neurologic: Alert and oriented ?3, [employer]AGSA[employer] OPER[employer] is normal as tested, no gross motor deficit Course Course Emergency Course: Stable Vital Signs Vital signs: Vital Signs Temperature 36.7 C 12/30/20 06:00 Pulse Rate 108 H 12/30/20 06:00 Respiratory Rate 20 12/30/20 06:00 Blood Pressure 108/78 12/30/20 06:00 Pulse Oximetry 97 12/30/20 06:00 Temperature 36.7 C 12/30/20 06:00 Pulse Rate 120 H 12/30/20 09:00 Respiratory Rate 14 12/30/20 09:00 Blood Pressure 98/84 L 12/30/20 09:00 Pulse Oximetry 90 12/30/20 09:[address] [facility] Narrative Medical decision making narrative: Patient presents with intermittent syncope, Covid syndrome. Labs, IV fluid ordered. Further plan to follow Work-up showed that patient have hypoxia, sinus tachycardia, and hyponatremia. Patient will be admitted for IV fluid, observation. Differential Diagnosis Differential Diagnosis: Covid pneumonia, electrolyte imbalance, pulmonary embolism Vital Signs Vital Signs: Vital Signs Temperatu
[2020-12-30] MEDS: DEXAMETHASONE 2 MG TABLET 6 MG PO (10:51)
--- NOTE | 2020-12-30 11:00 | ADMGEN ---
This patient, Yessi Thomas, was admitted to [facility] Surg Room 323-01. Patient/family oriented to hospital policies and general routines including ID bracelet, bed and alarms, visiting hours, pain management, procedures, bathroom and other care routines, personal items, smoking policy, room service/diet, and visiting hours. Report received from MATHEW Aiken Information on how to activate the Rapid Response Team has been discussed. Patient/Family are encouraged to report perceived risks to care and to ask questions if they do not understand what they are told or what they should do.
[2020-12-30] MEDS: SODIUM CHLORIDE 0.9% IV 1,000 ML 125 ML IV CONT ×2 (12:07→20:34)
--- NOTE | 2020-12-30 19:30 | PM.IMHP ---
H&P: HPI History of Present Illness Date/Time: 12/30/20 19:30 Chief Complaint: Syncopal episode. Narrative: This is a pleasant 60-year-old female without significant medical problems who presented to the emergency department earlier today via EMS from home for evaluation after a syncopal episode. She has not felt well for about 1 week with fever, decreased appetite, nausea, vomiting, diarrhea, and mild cough and tested positive for COVID-19 this past , having been exposed to the same approximately 1 week prior. She has been taking zinc, vitamin-C, vitamin-D, and hydroxychloroquine since the exposure though unfortunately she has not felt much better. In fact she was seen in the emergency department on 12/24/2020 with severe fatigue, nausea, vomiting, and diarrhea. She was hydrated and treated with antiemetics with improvement and was able to be discharged home. She continues to have a poor appetite and has been having episodes of lightheadedness and her appetite and oral intake have remained poor. Last evening she got up to use the restroom and while walking back to her room she felt dizzy and lightheaded before having a syncopal episode. CTA of the chest showed no evidence of central pulmonary embolus and patchy bilateral airspace opacities with a pattern consistent with COVID pneumonia. She is currently requiring oxygen and is being admitted in this setting. At the time of my evaluation she still has a decreased appetite though she is trying to eat and stay hydrated. She continues to feel a bit dizzy when up and about. She has been taking acetaminophen for ongoing fever with benefit. She has not had chest pain or pleuritic pain. She is not necessarily short of breath at this time. Review of Systems Review of Systems: Twelve systems were reviewed with pertinent positives and negatives as per HPI. Except as documented, all other systems were reviewed and are negative. [facility] Past Medical History Medical History (Updated 12/30/20 @ 22:56 by Anne Peralta PA-C) Anxiety Diverticulosis Gastroesophageal reflux disease Surgical History Surgical History (Updated 12/30/20 @ 22:53 by Anne Peralta PA-C) History of hysterectomy History of laparoscopic cholecystectomy History of left breast biopsy Excision of benign cyst. History of thumb surgery Tendon repair of left thumb. Family History Family History Father Diabetes mellitus Heart disease Grandparent Malignant neoplasm of prostate Cancer Social History Social History (Updated 12/30/20 @ 22:54 by Anne Peralta PA-C) Social History: Surrogate decision maker: Richard Thomas, . Code status: Full code. Smoking status: Never smoker Alcohol intake: never Alcohol use details: Rare alcohol use. Substance use: never Substance use type: does not use Additional living arrangements comments: The patient lives in [place] with her . They have 1 grown daughter who lives in [place] with their 3 grand children. 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 Meds Home Medications and Allergies Home Medications Medication Instructions Recorded Confirmed Type B Complex-Vitamin B12 500 mg BYMOUTH DAILY 12/25/20 12/30/20 History Vitamin D3 2,000 units BYMOUTH DAILY 12/25/20 12/30/20 History omeprazole 20 mg PO Q12H 12/25/20 12/30/20 History ondansetron 4 mg PO Q8H PRN #14 tablet 12/25/20 12/30/20 Rx zinc sulfate 25 mg PO DAILY 12/30/20 12/30/20 History Allergies Allergy/AdvReac Type Severity Reaction Status Date / Time codeine Allergy Severe Hives / Verified 12/30/20 11:49 Red Face Vital Signs Vital Signs - 24 hr 12/30/20 06:00 12/30/20 06:08 12/30/20 06:36 Temperature 98.1 F Pulse Rate 108 H 107 H 101 H Respiratory Rate 20 16 Blood Pressure 108/78 119/70 Pulse Oximetry 97 99 12/30/20 07:02 12/30/20 07:12 12/30/20 07:1
[2020-12-30] MEDS: PANTOPRAZOLE 40 MG TABLET PO (20:35)
[2020-12-30] MEDS: MELATONIN 5 MG TABLET PO (20:36)
[2020-12-30] MEDS: guaiFENesin 12 HR 600 MG TABCR PO (20:36)
[2020-12-31] VITALS (21 sets, daily range): BP systolic 101–145; BP diastolic 64–89; PULSE 66–132; RESP 16–22; TEMP 36.3–37.4; O2SAT 87–95
[2020-12-31 01:17] LABS: Anion Gap 10 mmol/L (8-16); Blood Urea Nitrogen 6 mg/dL (7-17); Calcium 8.7 mg/dL (8.4-10.2); Carbon Dioxide 23 mmol/L (22-30); Chloride 101 mmol/L (98-107); Estimated CRCL calculation 91 ml/min; Estimated Glomerular Filt Rate > 60; Glucose 119 mg/dL (65-110); Sodium 134 mmol/L (137-145)
--- NOTE | 2020-12-31 01:27 | PCRCNOTE ---
Window of time for administration has passed. See next scheduled administration.
[2020-12-31] MEDS: SODIUM CHLORIDE 0.9% IV 1,000 ML 75 ML IV CONT ×2 (01:36→06:14)
[2020-12-31 06:59] LABS: Hematocrit 38.7 % (37.0-47.0); Hemoglobin 12.7 g/dL (12.0-15.0); Immature Platelet Fraction Pct 12.1 % (0.9-11.2); Mean Corpuscular HGB Conc 32.8 g/dl (32-36); Mean Corpuscular Hemoglobin 28.3 pg (26-34); Mean Corpuscular Volume 86.2 fl (80-100); Mean Platelet Volume 10.7 fl (7.4-10.4); Platelet Count Result 144 k/mm3 (150-375); Red Blood Count 4.49 M/mm3 (4.2-5.4); Red Cell Distribution Width 13.3 % (11.5-14.5)
[2020-12-31 07:21] LABS: Anion Gap 10 mmol/L (8-16); Blood Urea Nitrogen 7 mg/dL (7-17); CRP 2.8 mg/dL (<1.0); Calcium 8.5 mg/dL (8.4-10.2); Carbon Dioxide 21 mmol/L (22-30); Chloride 102 mmol/L (98-107); Estimated CRCL calculation 91 ml/min; Estimated Glomerular Filt Rate > 60; Glucose 98 mg/dL (65-110); Lactate Dehydrogenase 769 U/L (313-618); Magnesium 1.9 mg/dL (1.6-2.3); Potassium 3.8 mmol/L (3.4-5.0); Sodium 133 mmol/L (137-145)
[2020-12-31] MEDS: ZINC SULFATE 220 MG CAPSULE PO (08:33)
[2020-12-31] MEDS: PANTOPRAZOLE 40 MG TABLET PO ×2 (08:33→20:44)
[2020-12-31] MEDS: CHOLECALCIFEROL 1,000 UNITS TABLET 2000 UNITS BY MOUTH (08:33)
[2020-12-31] MEDS: VITAMIN B COMPLEX CAPSULE 1 CAP BY MOUTH (08:33)
[2020-12-31] MEDS: guaiFENesin 12 HR 600 MG TABCR PO ×2 (08:33→20:44)
[2020-12-31] MEDS: ALBUTEROL SULFATE (*SP) AEROSOL 1 PUFF 2 PUFF INHALATION ×2 (08:53→11:15)
[2020-12-31 10:06] LABS: Thyroid Stimulating Hormone Reflex 0.709 uIU/mL (0.465-4.68)
[2020-12-31] MEDS: DEXAMETHASONE 2 MG TABLET 6 MG PO (12:16)
--- NOTE | 2020-12-31 15:44 | P.PNIM_ITS ---
Progress Note: A&P Assessment and Plan (1) Hypoxia: Code(s): R09.02 - Hypoxemia Status: Acute Assessment and Plan: * Secondary to COVID pneumonia. * CTA of the chest showed no central pulmonary embolus * tachycardic * no pleuritic pain and her D-dimer is only mildly elevated thus pulmonary embolism is felt to be unlikely. * Currently on 2 L nasal cannula. * Wean oxygen as tolerated. (2) Pneumonia due to COVID-19 virus: Code(s): U07.1 - COVID-19; J12.82 - Pneumonia due to coronavirus disease 2018 Status: Acute Assessment and Plan: * did not receive a COVID vaccination. * prophylactically on hydroxychloroquine, zinc, and vitamin-C and D at home. * long discussion regarding COVID-19 and treatment options. * started on dexamethasone given her oxygen requirement. * She does not wish to be treated with remdesivir at this time. * Continue airborne, contact, and droplet isolation. * Inflammatory markers were reviewed and will be trended. (3) Syncope: Qualifiers: Syncope type: unspecified Qualified Code(s): R55 - Syncope and collapse Code(s): R55 - Syncope and collapse Status: Acute Assessment and Plan: * suspect her blood pressure dropped as she still looks quite dehydrated. * Possible vasovagal. * monitored on telemetry overnight to rule out cardiac dysrhythmia * Monitor orthostatic vital signs. * Echocardiogram ordered. * Initiate fall precautions. (4) Dehydration: Code(s): E86.0 - Dehydration Status: Acute Assessment and Plan: * cautiously hydrated to avoid over-hydration. * Encouraged p.o. intake. * Antiemetics as needed. (5) Hyponatremia: Code(s): E87.1 - Hypo-osmolality and hyponatremia Status: Acute Assessment and Plan: * Likely due to dehydration though she could have some component of SIADH given her pneumonia. * Continue normal saline overnight with repeat electrolytes in a.m.. * check urine and serum osmolalities, urine sodium and creatinine, and a TSH. (6) Gastroesophageal reflux disease: Code(s): K21.9 - Gastro-esophageal reflux disease without esophagitis Status: Acute Assessment and Plan: * Continue PPI. Time Spent With Patient Time with patient: 25 - 35 minutes Subjective Date/time seen: 12/31/20 15:00 Interval history: Patient is a 60-year-old female who is here for COVID-19. Patient stated that she is feeling better. She does complain of weakness and shakiness. She did have a cough which she did state that produced a clear/yellow sputum. She also complained that her appetite is bad and she is not really hungry. She does have shortness of breath with activity and nausea when she eats. She said her taste is intermittent she takes some things however her smell is not promised this time. I did ask her about her heart rate she said her heart rate runs a little high around 100 currently heart rates 120 to 130s I did order her some metoprolol p.o. 1 time to see if that would help. I also changed her albuterol treatments Xopenex. She denies chest pain, palpitations, vomiting, abdominal pain sweats fevers and chills. Review of Systems Review of Systems: All systems reviewed & are unremarkable except as noted in HPI and below Exam Const: General: cooperative, healthy appearing, no acute distress, well developed, alert, awake and ill appearing Nutritional Appearance: well nourished [facility]
--- NOTE | 2020-12-31 15:44 | PM.IMPN ---
Progress Note: A&P Assessment and Plan (1) Hypoxia: Code(s): R09.02 - Hypoxemia Status: Acute Assessment and Plan: Secondary to COVID pneumonia. CTA of the chest showed no central pulmonary embolus tachycardic no pleuritic pain and her D-dimer is only mildly elevated thus pulmonary embolism is felt to be unlikely. Currently on 2 L nasal cannula. Wean oxygen as tolerated. (2) Pneumonia due to COVID-19 virus: Code(s): U07.1 - COVID-19; J12.82 - Pneumonia due to coronavirus disease 2018 Status: Acute Assessment and Plan: did not receive a COVID vaccination. prophylactically on hydroxychloroquine, zinc, and vitamin-C and D at home. long discussion regarding COVID-19 and treatment options. started on dexamethasone given her oxygen requirement. She does not wish to be treated with remdesivir at this time. Continue airborne, contact, and droplet isolation. Inflammatory markers were reviewed and will be trended. (3) Syncope: Qualifiers: Syncope type: unspecified Qualified Code(s): R55 - Syncope and collapse Code(s): R55 - Syncope and collapse Status: Acute Assessment and Plan: suspect her blood pressure dropped as she still looks quite dehydrated. Possible vasovagal. monitored on telemetry overnight to rule out cardiac dysrhythmia Monitor orthostatic vital signs. Echocardiogram ordered. Initiate fall precautions. (4) Dehydration: Code(s): E86.0 - Dehydration Status: Acute Assessment and Plan: cautiously hydrated to avoid over-hydration. Encouraged p.o. intake. Antiemetics as needed. (5) Hyponatremia: Code(s): E87.1 - Hypo-osmolality and hyponatremia Status: Acute Assessment and Plan: Likely due to dehydration though she could have some component of SIADH given her pneumonia. Continue normal saline overnight with repeat electrolytes in a.m.. check urine and serum osmolalities, urine sodium and creatinine, and a TSH. (6) Gastroesophageal reflux disease: Code(s): K21.9 - Gastro-esophageal reflux disease without esophagitis Status: Acute Assessment and Plan: Continue PPI. Time Spent With Patient Time with patient: 25 - 35 minutes Subjective Date/time seen: 12/31/20 15:00 Interval history: Patient is a 60-year-old female who is here for COVID-19. Patient stated that she is feeling better. She does complain of weakness and shakiness. She did have a cough which she did state that produced a clear/yellow sputum. She also complained that her appetite is bad and she is not really hungry. She does have shortness of breath with activity and nausea when she eats. She said her taste is intermittent she takes some things however her smell is not promised this time. I did ask her about her heart rate she said her heart rate runs a little high around 100 currently heart rates 120 to 130s I did order her some metoprolol p.o. 1 time to see if that would help. I also changed her albuterol treatments Xopenex. She denies chest pain, palpitations, vomiting, abdominal pain sweats fevers and chills. Review of Systems Review of Systems: All systems reviewed & are unremarkable except as noted in HPI and below Exam Const: General: cooperative, healthy appearing, no acute distress, well developed, alert, awake and ill appearing Nutritional Appearance: well nourished Orientation/consciousness: oriented to person, oriented to place, oriented to time and patient oriented x3 Limitations: no limitations HENMT: Head: normal to inspection Ears: hearing grossly normal bilaterally General nose exam: Normal external nose present Mouth: Yes Normal oral and palatal mucosa present, Yes lip normal and Yes tongue normal Teeth and gingiva: abnormal tooth and associated gingiva and poor dentition Eyes: General: appearance normal, both eyes and all rel
[2020-12-31] MEDS: METOPROLOL SUCCINATE EXT REL 12.5 MG TABCR 6.25 MG PO (16:25)
[2020-12-31] MEDS: MELATONIN 5 MG TABLET PO (20:44)
[2020-12-31] MEDS: METOPROLOL TARTRATE 6.25 MG TABLET PO (22:25)
--- NOTE | 2020-12-31 23:05 | ECHO_ITS ---
Patient Info Name: Yessi Thomas Age: 60 years : 1960 Gender: Female Ht: 62 in Wt: 156 lbs BSA: 1.78 m2 HR: 130 bpm BP: 118 / 78 mmHg Heart Rhythm: Tachycardia, Sinus Rhythm Technical Quality: Fair Exam Date: 12/31/2020 10:41 AM Exam Location: [facility] Pulmonary Exam Room: 323 Patient Status: Inpatient Admit Date: 12/30/2020 Staff Ordering Physician: Anne Peralta PA-C Data Librarian: Erika Liang RDCS Attending Provider: Arcadio Nava MD Referring Physician: Fabian GRULLON; Exam Type: CA echo doppler color flow Study Info Indications R55 - Syncope and collapse Complete two-dimensional, color flow and Doppler transthoracic echocardiogram is performed. Summary 1. Complete two-dimensional, color flow and Doppler transthoracic echocardiogram is performed. 2. Hyperdynamic left ventricular systolic function. Left ventricular chamber size and wall thickness are normal with no regional wall motion abnormalities with an estimated ejection fraction of >70%. Grade 1 diastolic dysfunction is noted. 3. Mild pulmonary hypertension, estimated pulmonary arterial systolic pressure is 43 mmHg. 4. No significant valve disease. 5. Sinus tachycardia. Left Ventricle Left ventricular chamber dimension is normal. Left ventricular systolic function is hyperdynamic, estimated at >70%. There is no increased left ventricular wall thickness. Left ventricular septal wall motion is normal. The left ventricular diastolic function is grade I diastolic dysfunction. Hyperdynamic left ventricular systolic function. Left ventricular chamber size and wall thickness are normal with no regional wall motion abnormalities with an estimated ejection fraction of >70%. Grade 1 diastolic dysfunction is noted. Right Ventricle Right ventricular chamber dimension is normal. Right ventricular systolic function is normal. Left Atria Left atrial chamber dimension is normal. Right Atria Right atrial chamber dimension is normal. Aortic Valve The aortic valve is trileaflet. There is no aortic valve sclerosis. There is no aortic valve stenosis. There is no aortic valve regurgitation. Pulmonic Valve The pulmonic valve is normal. There is no pulmonic valve stenosis. There is no pulmonic regurgitation. Mitral Valve The mitral valve has normal leaflets. There is no mitral valve stenosis. There is trace mitral valve regurgitation. Tricuspid Valve The tricuspid valve leaflets are normal. There is no significant tricuspid valve stenosis. There is trace tricuspid valve regurgitation. Mild pulmonary hypertension, estimated pulmonary arterial systolic pressure is 43 mmHg. Pericardium/Pleural The pericardium appears normal. There is no pericardial effusion. Inferior Vena Cava Normal inferior vena cava with >50% collapse upon inspiration consistent with Empty right atrial pressure, 10 mmHg. Aorta The aortic root size at the sinus of Valsalva is normal. The prox ascending aorta size is normal. Left Ventricular Outflow Tract Name Value Normal LVOT 2D LVOT Diameter 2.0 cm LVOT Doppler LVOT Pe
[2021-01-01] VITALS (11 sets, daily range): BP systolic 116–145; BP diastolic 56–86; PULSE 83–125; RESP 16–22; TEMP 35.8–37.4; O2SAT 82–94
[2021-01-01 06:59] LABS: Basophils Percent Auto 0.2 % (0.2-1.2); Hematocrit 39.7 % (37.0-47.0); Hemoglobin 13.2 g/dL (12.0-15.0); Immature Granulocyte Absolute 0.03 K/mm3 (0.00-0.031); Immature Granulocyte Percent A 0.6 % (0-0.5); Lymphocytes Absolute Auto 0.87 K/mm3 (0.9-3.2); Lymphocytes Percent Auto 16.7 % (18.3-44.2); Mean Corpuscular HGB Conc 33.2 g/dl (32-36); Mean Corpuscular Hemoglobin 27.7 pg (26-34); Mean Corpuscular Volume 83.2 fl (80-100); Mean Platelet Volume 10.6 fl (7.4-10.4); Monocytes Absolute Auto 0.5 K/mm3 (0.1-0.6); Monocytes Percent Auto 9.4 % (2.6-8.5); Neutrophils Absolute Auto 3.8 K/mm3 (1.3-6.7); Neutrophils Percent Auto 73.1 % (45.5-73.1); Platelet Count Result 179 k/mm3 (150-375); Red Blood Count 4.77 M/mm3 (4.2-5.4); Red Cell Distribution Width 13.2 % (11.5-14.5); White Blood Count 5.2 K/mm3 (4.5-10.0)
[2021-01-01 07:14] LABS: D Dimer 0.57 ug/mL (<0.48)
[2021-01-01 07:34] LABS: Alanine Aminotransferase 58 U/L (4-35); Albumin Level 3.6 g/dL (3.5-5.1); Alkaline Phosphatase 94 U/L (38-126); Anion Gap 8 mmol/L (8-16); Aspartate Amino Transferase 59 U/L (14-36); Bilirubin,Total 0.6 mg/dL (0.2-1.3); Blood Urea Nitrogen 8 mg/dL (7-17); CRP 4.6 mg/dL (<1.0); Calcium 9.1 mg/dL (8.4-10.2); Carbon Dioxide 26 mmol/L (22-30); Chloride 98 mmol/L (98-107); Estimated CRCL calculation 77 ml/min; Estimated Glomerular Filt Rate > 60; Glucose 103 mg/dL (65-110); Lactate Dehydrogenase 836 U/L (313-618); Magnesium 1.7 mg/dL (1.6-2.3); Potassium 3.8 mmol/L (3.4-5.0); Sodium 132 mmol/L (137-145)
[2021-01-01] MEDS: DEXAMETHASONE 2 MG TABLET 6 MG PO ×2 (08:14→17:48)
[2021-01-01] MEDS: CHOLECALCIFEROL 1,000 UNITS TABLET 2000 UNITS BY MOUTH (08:15)
[2021-01-01] MEDS: VITAMIN B COMPLEX CAPSULE 1 CAP BY MOUTH (08:15)
[2021-01-01] MEDS: guaiFENesin 12 HR 600 MG TABCR PO ×2 (08:16→22:46)
[2021-01-01] MEDS: ZINC SULFATE 220 MG CAPSULE PO (08:16)
[2021-01-01] MEDS: PANTOPRAZOLE 40 MG TABLET PO ×2 (08:16→22:46)
[2021-01-01] MEDS: ONDANSETRON INJ 4 MG/2 ML VIAL IV PUSH (08:19)
[2021-01-01] MEDS: ENOXAPARIN 40 MG/0.4 ML SYRINGE SUB-Q (14:58)
--- NOTE | 2021-01-01 15:07 | P.PNIM_ITS ---
Progress Note: A&P Assessment and Plan (1) Hypoxia: Code(s): R09.02 - Hypoxemia Status: Acute Assessment and Plan: * Secondary to COVID pneumonia. * CTA of the chest showed no central pulmonary embolus * tachycardia has been better * no pleuritic pain and her D-dimer is only mildly elevated thus pulmonary embolism is felt to be unlikely. * Currently on 2 L nasal cannula. * Wean oxygen as tolerated. * Decadron and lovenox * Per patients request remedesivir (2) Pneumonia due to COVID-19 virus: Code(s): U07.1 - COVID-19; J12.82 - Pneumonia due to coronavirus disease 2018 Status: Acute Assessment and Plan: * did not receive a COVID vaccination. * prophylactically on hydroxychloroquine, zinc, and vitamin-C and D at home. * long discussion regarding COVID-19 and treatment options with paper handouts * dexamethasone 6mg PO, will increase to BID * Will start treatment with remdesivir * Continue airborne, contact, and droplet isolation. * Inflammatory markers were reviewed and will be trended. (3) Syncope: Qualifiers: Syncope type: unspecified Qualified Code(s): R55 - Syncope and collapse Code(s): R55 - Syncope and collapse Status: Acute Assessment and Plan: * suspect her blood pressure dropped as she still looks quite dehydrated. * Possible vasovagal. * monitored on telemetry overnight to rule out cardiac dysrhythmia * Monitor orthostatic vital signs. * Echocardiogram ordered. * Initiate fall precautions. (4) Dehydration: Code(s): E86.0 - Dehydration Status: Acute Assessment and Plan: * cautiously hydrated to avoid over-hydration. * Encouraged p.o. intake. * Antiemetics as needed. (5) Hyponatremia: Code(s): E87.1 - Hypo-osmolality and hyponatremia Status: Acute Assessment and Plan: * Likely due to dehydration though she could have some component of SIADH given her pneumonia. * Continue normal saline overnight with repeat electrolytes in a.m.. * check urine and serum osmolalities, urine sodium and creatinine, and a TSH. (6) Gastroesophageal reflux disease: Code(s): K21.9 - Gastro-esophageal reflux disease without esophagitis Status: Acute Assessment and Plan: * Continue PPI. Subjective Date/time seen: 01/01/21 15:07 Interval history: Patient is a 60-year-old female who is here for COVID-19. Patient states that she still short of breath and feels like she can not get a deep breath in. She also does have for cough which she says is about the same yellow and clear sputum. Appetite is decreased however she does try to eat. She also does say that she has moments of nausea which she got Zofran which she states helped. She did state that getting up and down has been getting better as well. She denied chest pain, palpitation, vomiting, dizziness, lightheadedness, and numbness and tingling. I did talk to the patient's . He stated that we are not treating the patient appropriately and wants the patient to receive Plaquenil for treatment. I went through and printed uptodate documents about the treatment and risk and benefits of the Plaquenil. I also showed her the category that she would be in. When I heard about all of this I did try to reach out to her after he threatened the nurse and said that he was taking her out of the hospital. He did talk to me as well and threatened to get a ship keeper if I would not get on b
--- NOTE | 2021-01-01 15:07 | PM.IMPN ---
Progress Note: A&P Assessment and Plan (1) Hypoxia: Code(s): R09.02 - Hypoxemia Status: Acute Assessment and Plan: Secondary to COVID pneumonia. CTA of the chest showed no central pulmonary embolus tachycardia has been better no pleuritic pain and her D-dimer is only mildly elevated thus pulmonary embolism is felt to be unlikely. Currently on 2 L nasal cannula. Wean oxygen as tolerated. Decadron and lovenox Per patients request remedesivir (2) Pneumonia due to COVID-19 virus: Code(s): U07.1 - COVID-19; J12.82 - Pneumonia due to coronavirus disease 2018 Status: Acute Assessment and Plan: did not receive a COVID vaccination. prophylactically on hydroxychloroquine, zinc, and vitamin-C and D at home. long discussion regarding COVID-19 and treatment options with paper handouts dexamethasone 6mg PO, will increase to BID Will start treatment with remdesivir Continue airborne, contact, and droplet isolation. Inflammatory markers were reviewed and will be trended. (3) Syncope: Qualifiers: Syncope type: unspecified Qualified Code(s): R55 - Syncope and collapse Code(s): R55 - Syncope and collapse Status: Acute Assessment and Plan: suspect her blood pressure dropped as she still looks quite dehydrated. Possible vasovagal. monitored on telemetry overnight to rule out cardiac dysrhythmia Monitor orthostatic vital signs. Echocardiogram ordered. Initiate fall precautions. (4) Dehydration: Code(s): E86.0 - Dehydration Status: Acute Assessment and Plan: cautiously hydrated to avoid over-hydration. Encouraged p.o. intake. Antiemetics as needed. (5) Hyponatremia: Code(s): E87.1 - Hypo-osmolality and hyponatremia Status: Acute Assessment and Plan: Likely due to dehydration though she could have some component of SIADH given her pneumonia. Continue normal saline overnight with repeat electrolytes in a.m.. check urine and serum osmolalities, urine sodium and creatinine, and a TSH. (6) Gastroesophageal reflux disease: Code(s): K21.9 - Gastro-esophageal reflux disease without esophagitis Status: Acute Assessment and Plan: Continue PPI. Subjective Date/time seen: 01/01/21 15:07 Interval history: Patient is a 60-year-old female who is here for COVID-19. Patient states that she still short of breath and feels like she can not get a deep breath in. She also does have for cough which she says is about the same yellow and clear sputum. Appetite is decreased however she does try to eat. She also does say that she has moments of nausea which she got Zofran which she states helped. She did state that getting up and down has been getting better as well. She denied chest pain, palpitation, vomiting, dizziness, lightheadedness, and numbness and tingling. I did talk to the patient's . He stated that we are not treating the patient appropriately and wants the patient to receive Plaquenil for treatment. I went through and printed uptodate documents about the treatment and risk and benefits of the Plaquenil. I also showed her the category that she would be in. When I heard about all of this I did try to reach out to her after he threatened the nurse and said that he was taking her out of the hospital. He did talk to me as well and threatened to get a rn new graduate if I would not get on board with his treatment plan. He also got very rambunctious and was yelling and screaming at me on the phone. I did interject and told him that he is not going to yell at me. I also tried to explain the current treatment of covid however he cut me off and would interrupt me with information about [facility] and Jaxon Sosa. When trying to look at these people and this program the [facility] frontline doctors and Jaxon Sosa are under
[2021-01-01 15:14] LABS: Creatinine Urine 16.1 mg/dL
[2021-01-01 15:52] LABS: Sodium Urine Random 41 meq/L
[2021-01-01 16:53] LABS: INR 0.9; Prothrombin Time 12.3 Seconds (11.1-14.7)
[2021-01-01 16:54] LABS: Alanine Aminotransferase 78 U/L (4-35); Estimated CRCL calculation 91 ml/min; Estimated Glomerular Filt Rate > 60
[2021-01-01] MEDS: REMDESIVIR 200 MG/NS 250 ML 200 MG/250 ML BAG 125 MG IVPB (17:47)
[2021-01-01] MEDS: SALINE 0.65% NAS SOLN 44 ML BTL 1 SPRAY NASAL (17:49)
[2021-01-01] MEDS: MELATONIN 5 MG TABLET PO (22:46)
[2021-01-02] VITALS (8 sets, daily range): BP systolic 117–143; BP diastolic 60–85; PULSE 72–130; RESP 20–24; TEMP 36.4–37.6; O2SAT 79–92
[2021-01-02 06:55] LABS: Glucose Point of Care 113 mg/dl (65-105)
[2021-01-02] MEDS: DEXAMETHASONE 2 MG TABLET 6 MG PO ×2 (08:28→17:02)
[2021-01-02] MEDS: ENOXAPARIN 40 MG/0.4 ML SYRINGE SUB-Q (08:29)
[2021-01-02] MEDS: VITAMIN B COMPLEX CAPSULE 1 CAP BY MOUTH (08:30)
[2021-01-02] MEDS: CHOLECALCIFEROL 1,000 UNITS TABLET 2000 UNITS BY MOUTH (08:30)
[2021-01-02] MEDS: guaiFENesin 12 HR 600 MG TABCR PO ×2 (08:30→21:27)
[2021-01-02] MEDS: ZINC SULFATE 220 MG CAPSULE PO (08:30)
[2021-01-02] MEDS: PANTOPRAZOLE 40 MG TABLET PO ×2 (08:30→21:27)
[2021-01-02 11:07] LABS: Basophils Percent Auto 0.1 % (0.2-1.2); Hematocrit 41.4 % (37.0-47.0); Hemoglobin 13.8 g/dL (12.0-15.0); Immature Granulocyte Absolute 0.05 K/mm3 (0.00-0.031); Immature Granulocyte Percent A 0.5 % (0-0.5); Lymphocytes Percent Auto 4.2 % (18.3-44.2); Mean Corpuscular HGB Conc 33.3 g/dl (32-36); Mean Corpuscular Volume 84.1 fl (80-100); Mean Platelet Volume 10.5 fl (7.4-10.4); Monocytes Absolute Auto 0.8 K/mm3 (0.1-0.6); Monocytes Percent Auto 8.6 % (2.6-8.5); Neutrophils Absolute Auto 8.3 K/mm3 (1.3-6.7); Neutrophils Percent Auto 86.6 % (45.5-73.1); Platelet Count Result 157 k/mm3 (150-375); Red Blood Count 4.92 M/mm3 (4.2-5.4); Red Cell Distribution Width 13.1 % (11.5-14.5); White Blood Count 9.6 K/mm3 (4.5-10.0)
[2021-01-02 11:16] LABS: INR 1.1; Prothrombin Time 13.7 Seconds (11.1-14.7)
[2021-01-02 11:19] LABS: Alanine Aminotransferase 103 U/L (4-35); Albumin Level 3.9 g/dL (3.5-5.1); Alkaline Phosphatase 123 U/L (38-126); Anion Gap 11 mmol/L (8-16); Aspartate Amino Transferase 122 U/L (14-36); Bilirubin,Total 0.8 mg/dL (0.2-1.3); Blood Urea Nitrogen 14 mg/dL (7-17); Calcium 9.2 mg/dL (8.4-10.2); Carbon Dioxide 25 mmol/L (22-30); Chloride 95 mmol/L (98-107); Estimated CRCL calculation 91 ml/min; Estimated Glomerular Filt Rate > 60; Glucose 121 mg/dL (65-110); Potassium 3.3 mmol/L (3.4-5.0); Sodium 131 mmol/L (137-145)
[2021-01-02 11:20] LABS: Alanine Aminotransferase 104 U/L (4-35); Estimated CRCL calculation 91 ml/min; Estimated Glomerular Filt Rate > 60
[2021-01-02] MEDS: ONDANSETRON INJ 4 MG/2 ML VIAL IV PUSH (12:36)
--- NOTE | 2021-01-02 14:10 | P.PNIM_ITS ---
Progress Note: A&P Assessment and Plan (1) Hypoxia: Code(s): R09.02 - Hypoxemia Status: Acute Assessment and Plan: * Secondary to COVID pneumonia. * CTA of the chest showed no central pulmonary embolus * tachycardia is present at this time * no pleuritic pain and her D-dimer is only mildly elevated thus pulmonary embolism is felt to be unlikely. * Currently on 8 L nasal cannula. * Wean oxygen as tolerated. * Decadron will increase to BID and lovenox * Per patients request remedesivir (2) Pneumonia due to COVID-19 virus: Code(s): U07.1 - COVID-19; J12.82 - Pneumonia due to coronavirus disease 2018 Status: Acute Assessment and Plan: * did not receive a COVID vaccination. * prophylactically on hydroxychloroquine, zinc, and vitamin-C and D at home. * long discussion regarding COVID-19 and treatment options with paper handouts * dexamethasone 6mg PO, will increase to BID * Continue remdesivir * Will add baricitinib 2mg PO daily * Continue airborne, contact, and droplet isolation. * Inflammatory markers trend (3) Syncope: Qualifiers: Syncope type: unspecified Qualified Code(s): R55 - Syncope and collapse Code(s): R55 - Syncope and collapse Status: Acute Assessment and Plan: * suspect her blood pressure dropped as she still looks quite dehydrated. * Possible vasovagal. * monitored on telemetry overnight to rule out cardiac dysrhythmia * Monitor orthostatic vital signs. * Echocardiogram EF >70% * Initiate fall precautions. (4) Dehydration: Code(s): E86.0 - Dehydration Status: Acute Assessment and Plan: * cautiously hydrated to avoid over-hydration. * Encouraged p.o. intake. * Antiemetics as needed. * Give 250ml bolus (5) Hyponatremia: Code(s): E87.1 - Hypo-osmolality and hyponatremia Status: Acute Assessment and Plan: * Sodium 133 today * 250 bolus given * Could be hypervolemia * trend lab (6) Gastroesophageal reflux disease: Code(s): K21.9 - Gastro-esophageal reflux disease without esophagitis Status: Acute Assessment and Plan: * Continue PPI. (7) Transaminitis: Code(s): R74.01 - Elevation of levels of liver transaminase levels Status: Acute Assessment and Plan: * Liver enzymes elevated * Have been since admission * will continue to trend * Hepatitis panel tomorrow * Might consider RUQ US Subjective Date/time seen: 01/02/21 14:10 Patient is a 60 year old female here for COVID 19. Patient stated that she is doing ok. Her appetite is still lagging. She is also stating that she is not sleeping well and she is constantly getting woke up through out the night. She stated that she wished her cough was better so that she could get more sputum up. She is short of breath with activity, and she is also requiring more oxygen requirements. She is alert and oriented. Her cheeks are very red at this point. I did explain to her all of her labs from the very first time she came to now. She wants the nurse to go over them with her . She also stated that urination is going ok for now. Her heart rate is slightly elevated at this time. I wonder if she is dehyrated. Review of Systems Review of Systems: All systems reviewed & are unremarkable except as noted in HPI and below Exam
--- NOTE | 2021-01-02 14:10 | PM.IMPN ---
Progress Note: A&P Assessment and Plan (1) Hypoxia: Code(s): R09.02 - Hypoxemia Status: Acute Assessment and Plan: Secondary to COVID pneumonia. CTA of the chest showed no central pulmonary embolus tachycardia is present at this time no pleuritic pain and her D-dimer is only mildly elevated thus pulmonary embolism is felt to be unlikely. Currently on 8 L nasal cannula. Wean oxygen as tolerated. Decadron will increase to BID and lovenox Per patients request remedesivir (2) Pneumonia due to COVID-19 virus: Code(s): U07.1 - COVID-19; J12.82 - Pneumonia due to coronavirus disease 2018 Status: Acute Assessment and Plan: did not receive a COVID vaccination. prophylactically on hydroxychloroquine, zinc, and vitamin-C and D at home. long discussion regarding COVID-19 and treatment options with paper handouts dexamethasone 6mg PO, will increase to BID Continue remdesivir Will add baricitinib 2mg PO daily Continue airborne, contact, and droplet isolation. Inflammatory markers trend (3) Syncope: Qualifiers: Syncope type: unspecified Qualified Code(s): R55 - Syncope and collapse Code(s): R55 - Syncope and collapse Status: Acute Assessment and Plan: suspect her blood pressure dropped as she still looks quite dehydrated. Possible vasovagal. monitored on telemetry overnight to rule out cardiac dysrhythmia Monitor orthostatic vital signs. Echocardiogram EF >70% Initiate fall precautions. (4) Dehydration: Code(s): E86.0 - Dehydration Status: Acute Assessment and Plan: cautiously hydrated to avoid over-hydration. Encouraged p.o. intake. Antiemetics as needed. Give 250ml bolus (5) Hyponatremia: Code(s): E87.1 - Hypo-osmolality and hyponatremia Status: Acute Assessment and Plan: Sodium 133 today 250 bolus given Could be hypervolemia trend lab (6) Gastroesophageal reflux disease: Code(s): K21.9 - Gastro-esophageal reflux disease without esophagitis Status: Acute Assessment and Plan: Continue PPI. (7) Transaminitis: Code(s): R74.01 - Elevation of levels of liver transaminase levels Status: Acute Assessment and Plan: Liver enzymes elevated Have been since admission will continue to trend Hepatitis panel tomorrow Might consider RUQ US Subjective Date/time seen: 01/02/21 14:10 Patient is a 60 year old female here for COVID 19. Patient stated that she is doing ok. Her appetite is still lagging. She is also stating that she is not sleeping well and she is constantly getting woke up through out the night. She stated that she wished her cough was better so that she could get more sputum up. She is short of breath with activity, and she is also requiring more oxygen requirements. She is alert and oriented. Her cheeks are very red at this point. I did explain to her all of her labs from the very first time she came to now. She wants the nurse to go over them with her . She also stated that urination is going ok for now. Her heart rate is slightly elevated at this time. I wonder if she is dehyrated. Review of Systems Review of Systems: All systems reviewed & are unremarkable except as noted in HPI and below Exam Const: General: cooperative, healthy appearing, no acute distress, well developed, alert, awake and ill appearing Nutritional Appearance: well nourished Orientation/consciousness: oriented to person, oriented to place, oriented to time and patient oriented x3 Limitations: no limitations HENMT: Head: normal to inspection Ears: hearing grossly normal bilaterally General nose exam: Normal external nose present Mouth: Yes Normal oral and palatal mucosa present, Yes lip normal and Yes tongue normal Teeth and gingiva: abnormal tooth and associated gingiva
[2021-01-02] MEDS: BARICITINIB 2 MG TABLET 4 MG PO (17:00)
[2021-01-02] MEDS: POTASSIUM CHLORIDE 20 MEQ TABLET 40 MEQ PO (17:01)
[2021-01-02] MEDS: SODIUM CHLORIDE 0.9% IV 250 ML 999 ML IV CONT (17:02)
[2021-01-02] MEDS: METOPROLOL SUCCINATE EXT REL 12.5 MG TABCR PO (17:20)
[2021-01-02] MEDS: REMDESIVIR 100 MG/NS 250 ML 100 MG/250 ML BAG 250 MG IVPB (21:27)
[2021-01-02] MEDS: MELATONIN 5 MG TABLET PO (21:27)
[2021-01-02 23:12] LABS: Osmolality, Urine 220 mOsm/kg (50-1200)
[2021-01-03] VITALS (20 sets, daily range): BP systolic 98–149; BP diastolic 57–132; PULSE 73–110; RESP 18–20; TEMP 35.9–37.5; O2SAT 81–97
[2021-01-03 06:53] LABS: Basophils Percent Auto 0.1 % (0.2-1.2); Hematocrit 40.3 % (37.0-47.0); Hemoglobin 13.5 g/dL (12.0-15.0); Immature Granulocyte Absolute 0.03 K/mm3 (0.00-0.031); Immature Granulocyte Percent A 0.4 % (0-0.5); Immature Platelet Fraction Pct 15.9 % (0.9-11.2); Lymphocytes Absolute Auto 0.67 K/mm3 (0.9-3.2); Lymphocytes Percent Auto 9.8 % (18.3-44.2); Mean Corpuscular HGB Conc 33.5 g/dl (32-36); Mean Corpuscular Hemoglobin 28.2 pg (26-34); Mean Corpuscular Volume 84.3 fl (80-100); Mean Platelet Volume 11.1 fl (7.4-10.4); Monocytes Absolute Auto 0.8 K/mm3 (0.1-0.6); Monocytes Percent Auto 11.6 % (2.6-8.5); Neutrophils Absolute Auto 5.3 K/mm3 (1.3-6.7); Neutrophils Percent Auto 78.1 % (45.5-73.1); Platelet Count Result 195 k/mm3 (150-375); Red Blood Count 4.78 M/mm3 (4.2-5.4); White Blood Count 6.8 K/mm3 (4.5-10.0)
[2021-01-03 07:03] LABS: Prothrombin Time 13.3 Seconds (11.1-14.7)
[2021-01-03 07:05] LABS: D Dimer 0.42 ug/mL (<0.48)
[2021-01-03 07:08] LABS: Alanine Aminotransferase 93 U/L (4-35); Albumin Level 3.7 g/dL (3.5-5.1); Alkaline Phosphatase 109 U/L (38-126); Anion Gap 11 mmol/L (8-16); Aspartate Amino Transferase 62 U/L (14-36); Bilirubin,Total 0.7 mg/dL (0.2-1.3); Blood Urea Nitrogen 13 mg/dL (7-17); CRP 3.5 mg/dL (<1.0); Calcium 9.1 mg/dL (8.4-10.2); Carbon Dioxide 24 mmol/L (22-30); Chloride 98 mmol/L (98-107); Estimated CRCL calculation 91 ml/min; Estimated Glomerular Filt Rate > 60; Glucose 130 mg/dL (65-110); Lactate Dehydrogenase 1005 U/L (313-618); Potassium 3.9 mmol/L (3.4-5.0); Sodium 133 mmol/L (137-145)
[2021-01-03 08:02] LABS: Hepatitis B Surface Antigen Negative (Negative)
[2021-01-03 08:07] LABS: HAV RESULT Negative (Negative); Hepatitis B Core IgM Result Negative (Negative)
[2021-01-03 08:19] LABS: Hepatitis C Virus Antibody Negative (Negative)
[2021-01-03] MEDS: ZINC SULFATE 220 MG CAPSULE PO ×2 (10:12→17:22)
[2021-01-03] MEDS: DEXAMETHASONE 2 MG TABLET 6 MG PO ×2 (10:12→17:22)
[2021-01-03] MEDS: CHOLECALCIFEROL 1,000 UNITS TABLET 2000 UNITS BY MOUTH (10:13)
[2021-01-03] MEDS: BARICITINIB 2 MG TABLET 4 MG PO (10:13)
[2021-01-03] MEDS: METOPROLOL SUCCINATE EXT REL 12.5 MG TABCR PO (10:13)
[2021-01-03] MEDS: ENOXAPARIN 40 MG/0.4 ML SYRINGE SUB-Q (10:13)
[2021-01-03] MEDS: guaiFENesin 12 HR 600 MG TABCR PO ×2 (10:14→20:33)
[2021-01-03] MEDS: PANTOPRAZOLE 40 MG TABLET PO ×2 (10:14→20:33)
[2021-01-03] MEDS: VITAMIN B COMPLEX CAPSULE 1 CAP BY MOUTH (10:15)
[2021-01-03 11:35] LABS: Glucose Point of Care 134 mg/dl (65-105)
[2021-01-03 11:52] LABS: Hematocrit 40.2 % (37.0-47.0); Hemoglobin 13.6 g/dL (12.0-15.0); Mean Corpuscular HGB Conc 33.8 g/dl (32-36); Mean Corpuscular Hemoglobin 27.9 pg (26-34); Mean Corpuscular Volume 82.5 fl (80-100); Mean Platelet Volume 9.2 fl (7.4-10.4); Platelet Count Result 450 k/mm3 (150-375); Red Blood Count 4.87 M/mm3 (4.2-5.4); White Blood Count 11.2 K/mm3 (4.5-10.0)
[2021-01-03 12:04] LABS: Alveolar/Arterial O2 Gradient 462.8 mmHg; Base Excess ABG 0.8 mEq/l (+/-2.0); Device HIGH FLOW NASAL CANN; Fractional Inspired Oxygen 80 %; HCO3 ABG 24.2 mEq/l (22.0-26.0); Modified Allen's Test Pass; Oxygen Content ABG 19.1 %vol (16.0-22.0); Oxygen Saturation ABG 95.2 % (95.0-100.0); Oxyhemoglobin 93.7 % THb (90.0-100.0); PCO2 ABG 34.9 mmHg (35.0-45.0); PO2 FiO2 Ratio Arterial Blood 0.89 %; Site Drawn RIGHT RADIAL; Total Hemoglobin 14.5 g/dL (12.0-18.0); pH ABG 7.458 (7.350-7.450)
[2021-01-03 12:04] LABS: Anion Gap 11 mmol/L (8-16); Blood Urea Nitrogen 15 mg/dL (7-17); Carbon Dioxide 24 mmol/L (22-30); Chloride 97 mmol/L (98-107); Estimated CRCL calculation 77 ml/min; Estimated Glomerular Filt Rate > 60; Glucose 133 mg/dL (65-110); Potassium 3.6 mmol/L (3.4-5.0); Sodium 132 mmol/L (137-145)
[2021-01-03] MEDS: ONDANSETRON INJ 4 MG/2 ML VIAL IV PUSH (12:43)
[2021-01-03] MEDS: FUROSEMIDE INJ 40 MG/4 ML VIAL IV PUSH (12:46)
--- NOTE | 2021-01-03 13:57 | P.PNIM_ITS ---
Progress Note: A&P Assessment and Plan (1) Hypoxia: Code(s): R09.02 - Hypoxemia Status: Acute Assessment and Plan: * Secondary to COVID pneumonia. * CTA of the chest showed no central pulmonary embolus 12/30/20 * Times of tachycardia noted on the tele monitor review. * No chest pain noted D.Dimer was normal this morning * Currently on 10 L high flow canula * Wean oxygen as tolerated. * Decadron will increase to BID and lovenox * Continue remedesivir (2) Pneumonia due to COVID-19 virus: Code(s): U07.1 - COVID-19; J12.82 - Pneumonia due to coronavirus disease 2019 Status: Acute Assessment and Plan: * did not receive a COVID vaccination. * prophylactically on hydroxychloroquine, zinc, and vitamin-C and D at home. * dexamethasone 6mg PO BID * Continue remdesivir * baricitinib 4mg PO daily * Convalescent plasma * Vit B,C,D, and zinc are all on board * Continue airborne, contact, and droplet isolation. * Inflammatory markers trend (3) Syncope: Qualifiers: Syncope type: unspecified Qualified Code(s): R55 - Syncope and collapse Code(s): R55 - Syncope and collapse Status: Acute Assessment and Plan: * another episode today 01/03/21 probably from hypoxia * suspect her blood pressure dropped as she still looks quite dehydrated. * Possible vasovagal. * monitored on telemetry overnight to rule out cardiac dysrhythmia * Monitor orthostatic vital signs negative * Echocardiogram EF >70% * Initiate fall precautions. (4) Dehydration: Code(s): E86.0 - Dehydration Status: Acute Assessment and Plan: * cautiously hydrated to avoid over-hydration. * Encouraged p.o. intake. * Antiemetics as needed. * seems to be ok right now (5) Hyponatremia: Code(s): E87.1 - Hypo-osmolality and hyponatremia Status: Acute Assessment and Plan: * Sodium 133 today * 250 bolus given 01/02/21 * Could be hypervolemia, will attempt Lasix x 1 * trend lab (6) Gastroesophageal reflux disease: Code(s): K21.9 - Gastro-esophageal reflux disease without esophagitis Status: Acute Assessment and Plan: * Continue PPI. (7) Transaminitis: Code(s): R74.01 - Elevation of levels of liver transaminase levels Status: Acute Assessment and Plan: * Liver enzymes elevated 62/93, and trending down * Have been since admission * will continue to trend * Hepatitis panel negative * Might consider RUQ US Subjective Date/time seen: 01/03/21 12:00 Interval history: Patient is a 60-year-old female who is here for COVID-19. Roughly at time of examination patient was a rapid response. Patient was up to the chair and did have a syncopal episode. Oxygen has been titrated to meet the demand. Patient is currently on 14L high flow sating 94-95%. When I went into assess the patient she said that she just got a little dizzy which is something that she originally came for as well. She did say that she has a cough, which she stated that she wished it was better. She denies chest pain, fevers, sweats, chills. I did update her daughter today about her condition. I think that some of the problem is that the patient is not sleeping well. I also think that the patient is very anxious and nervous about all of this stuff and the family problems that have been going on. At 1441 Patient
--- NOTE | 2021-01-03 13:57 | PM.IMPN ---
Progress Note: A&P Assessment and Plan (1) Hypoxia: Code(s): R09.02 - Hypoxemia Status: Acute Assessment and Plan: Secondary to COVID pneumonia. CTA of the chest showed no central pulmonary embolus 12/30/20 Times of tachycardia noted on the tele monitor review. No chest pain noted D.Dimer was normal this morning Currently on 10 L high flow canula Wean oxygen as tolerated. Decadron will increase to BID and lovenox Continue remedesivir (2) Pneumonia due to COVID-19 virus: Code(s): U07.1 - COVID-19; J12.82 - Pneumonia due to coronavirus disease 2019 Status: Acute Assessment and Plan: did not receive a COVID vaccination. prophylactically on hydroxychloroquine, zinc, and vitamin-C and D at home. dexamethasone 6mg PO BID Continue remdesivir baricitinib 4mg PO daily Convalescent plasma Vit B,C,D, and zinc are all on board Continue airborne, contact, and droplet isolation. Inflammatory markers trend (3) Syncope: Qualifiers: Syncope type: unspecified Qualified Code(s): R55 - Syncope and collapse Code(s): R55 - Syncope and collapse Status: Acute Assessment and Plan: another episode today 01/03/21 probably from hypoxia suspect her blood pressure dropped as she still looks quite dehydrated. Possible vasovagal. monitored on telemetry overnight to rule out cardiac dysrhythmia Monitor orthostatic vital signs negative Echocardiogram EF >70% Initiate fall precautions. (4) Dehydration: Code(s): E86.0 - Dehydration Status: Acute Assessment and Plan: cautiously hydrated to avoid over-hydration. Encouraged p.o. intake. Antiemetics as needed. seems to be ok right now (5) Hyponatremia: Code(s): E87.1 - Hypo-osmolality and hyponatremia Status: Acute Assessment and Plan: Sodium 133 today 250 bolus given 01/02/21 Could be hypervolemia, will attempt Lasix x 1 trend lab (6) Gastroesophageal reflux disease: Code(s): K21.9 - Gastro-esophageal reflux disease without esophagitis Status: Acute Assessment and Plan: Continue PPI. (7) Transaminitis: Code(s): R74.01 - Elevation of levels of liver transaminase levels Status: Acute Assessment and Plan: Liver enzymes elevated 62/93, and trending down Have been since admission will continue to trend Hepatitis panel negative Might consider RUQ US Subjective Date/time seen: 01/03/21 12:00 Interval history: Patient is a 60-year-old female who is here for COVID-19. Roughly at time of examination patient was a rapid response. Patient was up to the chair and did have a syncopal episode. Oxygen has been titrated to meet the demand. Patient is currently on 14L high flow sating 94-95%. When I went into assess the patient she said that she just got a little dizzy which is something that she originally came for as well. She did say that she has a cough, which she stated that she wished it was better. She denies chest pain, fevers, sweats, chills. I did update her daughter today about her condition. I think that some of the problem is that the patient is not sleeping well. I also think that the patient is very anxious and nervous about all of this stuff and the family problems that have been going on. At 1441 Patient was updated about care plan and further orders that have been placed. All questions have been answered and patient verbalized understanding. Case was reviewed with Dr. Acuna which recommendations were made and medications adjusted Review of Systems Review of Systems: All systems reviewed & are unremarkable except as noted in HPI and below Exam Const: General: cooperative, healthy appearing, no acute distress, well developed, alert, awake and ill appearing Nutritional Appearance: well nourished Orientation/consciousness
[2021-01-03] MEDS: ALPRAZolam (*CRX) 0.125 MG TABLET PO (14:33)
--- NOTE | 2021-01-03 14:44 | PC.NURSE ---
Patient's called for update on 's condition. This RN spoke to about medications that patient is currently receiving, lab results, oxygen needs, and vital signs. asked questions about patient's need for intubation and need for plaquenil. This RN stated that the provider seeing this patient did not see the need for these measures. Patient's was angry but stated he did not have anymore questions.
[2021-01-03] MEDS: ASCORBIC ACID 500 MG TABLET 1000 MG PO (17:22)
[2021-01-03] MEDS: MELATONIN 5 MG TABLET PO (20:33)
[2021-01-03] MEDS: REMDESIVIR 100 MG/NS 250 ML 100 MG/250 ML BAG 250 MG IVPB (22:00)
[2021-01-03] MEDS: SODIUM CHLORIDE 0.9% IV 250 ML 30 ML IV CONT (23:15)
[2021-01-04] VITALS (20 sets, daily range): BP systolic 89–140; BP diastolic 52–86; PULSE 79–103; RESP 12–20; TEMP 36.5–37.2; O2SAT 90–93
[2021-01-04 06:09] LABS: Basophils Percent Auto 0.2 % (0.2-1.2); Hematocrit 39.5 % (37.0-47.0); Immature Granulocyte Absolute 0.05 K/mm3 (0.00-0.031); Immature Granulocyte Percent A 0.8 % (0-0.5); Lymphocytes Absolute Auto 0.84 K/mm3 (0.9-3.2); Lymphocytes Percent Auto 13.1 % (18.3-44.2); Mean Corpuscular HGB Conc 32.9 g/dl (32-36); Mean Corpuscular Hemoglobin 27.9 pg (26-34); Mean Corpuscular Volume 84.8 fl (80-100); Mean Platelet Volume 10.6 fl (7.4-10.4); Monocytes Absolute Auto 0.9 K/mm3 (0.1-0.6); Monocytes Percent Auto 14.4 % (2.6-8.5); Neutrophils Absolute Auto 4.6 K/mm3 (1.3-6.7); Neutrophils Percent Auto 71.5 % (45.5-73.1); Platelet Count Result 194 k/mm3 (150-375); Red Blood Count 4.66 M/mm3 (4.2-5.4); Red Cell Distribution Width 12.8 % (11.5-14.5); White Blood Count 6.4 K/mm3 (4.5-10.0)
[2021-01-04 06:32] LABS: Alanine Aminotransferase 98 U/L (4-35); Albumin Level 3.6 g/dL (3.5-5.1); Alkaline Phosphatase 106 U/L (38-126); Anion Gap 10 mmol/L (8-16); Aspartate Amino Transferase 65 U/L (14-36); Bilirubin,Total 0.9 mg/dL (0.2-1.3); Blood Urea Nitrogen 14 mg/dL (7-17); Calcium 8.8 mg/dL (8.4-10.2); Carbon Dioxide 28 mmol/L (22-30); Chloride 97 mmol/L (98-107); Estimated CRCL calculation 91 ml/min; Estimated Glomerular Filt Rate > 60; Glucose 129 mg/dL (65-110); Potassium 3.7 mmol/L (3.4-5.0); Sodium 135 mmol/L (137-145)
[2021-01-04 06:46] LABS: INR 1.1; Prothrombin Time 14.2 Seconds (11.1-14.7)
--- NOTE | 2021-01-04 08:10 | P.PNIM_ITS ---
Progress Note: A&P Assessment and Plan (1) Hypoxia: Code(s): R09.02 - Hypoxemia Status: Acute Assessment and Plan: * Secondary to COVID pneumonia. * CTA of the chest showed no central pulmonary embolus 12/30/20 * Times of tachycardia noted on the tele monitor review, better with addition of metoprolol * No chest pain noted D.Dimer was normal 0.42 01/03/21 * Currently on 12 L high flow canula * Wean oxygen to maintain saturation greater than 90% * Decadron will increase to BID and Lovenox * Continue remedesivir, baricitinib, Decadron (2) Pneumonia due to COVID-19 virus: Code(s): U07.1 - COVID-19; J12.82 - Pneumonia due to coronavirus disease 2019 Status: Acute Assessment and Plan: * did not receive a COVID vaccination. * prophylactically on hydroxychloroquine, zinc, and vitamin-C and D at home. * dexamethasone 6mg PO BID * Continue remdesivir Day 4 * baricitinib 4mg PO daily started 01/02/21 * Convalescent plasma 01/03/21 * Vit B,C,D, and zinc are all on board * Continue airborne, contact, and droplet isolation. * repeat D. Dimer and CRP tomorrow * Reporting diarrhea, Florastor and banatrol added * Flonase for nasal congestion (3) Syncope: Qualifiers: Syncope type: unspecified Qualified Code(s): R55 - Syncope and collapse Code(s): R55 - Syncope and collapse Status: Acute Assessment and Plan: * another episode today 01/03/21 probably from hypoxia, maybe vagal maneuver * monitored on telemetry which is SR 80s ST 120s with activity * Repeat orthostatic blood pressure L:140/69 S:110/55 ST: 89/52 * will half the metoprolol, but this could be from the tachycardia * education about changing position slowly * carotid us ordered * Echocardiogram EF >70% * Initiate fall precautions. (4) Dehydration: Code(s): E86.0 - Dehydration Status: Acute Assessment and Plan: * avoid over-hydration. * Encouraged p.o. intake. * no noted vomiting, diarrhea present * seems to be ok right now (5) Hyponatremia: Code(s): E87.1 - Hypo-osmolality and hyponatremia Status: Acute Assessment and Plan: * Sodium 135 today * Could be hypervolemia, * Repeat Lasix 40mg IV, BNP elevated at 135 * trend lab (6) Gastroesophageal reflux disease: Code(s): K21.9 - Gastro-esophageal reflux disease without esophagitis Status: Acute Assessment and Plan: * Continue PPI. (7) Transaminitis: Code(s): R74.01 - Elevation of levels of liver transaminase levels Status: Acute Assessment and Plan: * Liver enzymes elevated 65/98 staying stable * Have been elevated since admission probably secondary to COVID * will continue to trend * Hepatitis panel negative Subjective Date/time seen: 01/04/21 08:10 Interval history: 01/03/21 1200 Patient is a 60-year-old female who is here for COVID-19. Roughly at time of examination patient was a rapid response. Patient was up to the chair and did have a syncopal episode. Oxygen has been titrated to meet the demand. Patient is currently on 14L high flow sating 94-95%. When I went into assess the patient she said that she just got a little dizzy which is something that she originally came for as well. She did say that she has a cough, which she stated that she wished it was better. She denies chest pain, fevers, sweats, chil
--- NOTE | 2021-01-04 08:10 | PM.IMPN ---
Progress Note: A&P Assessment and Plan (1) Hypoxia: Code(s): R09.02 - Hypoxemia Status: Acute Assessment and Plan: Secondary to COVID pneumonia. CTA of the chest showed no central pulmonary embolus 12/30/20 Times of tachycardia noted on the tele monitor review, better with addition of metoprolol No chest pain noted D.Dimer was normal 0.42 01/03/21 Currently on 12 L high flow canula Wean oxygen to maintain saturation greater than 90% Decadron will increase to BID and Lovenox Continue remedesivir, baricitinib, Decadron (2) Pneumonia due to COVID-19 virus: Code(s): U07.1 - COVID-19; J12.82 - Pneumonia due to coronavirus disease 2019 Status: Acute Assessment and Plan: did not receive a COVID vaccination. prophylactically on hydroxychloroquine, zinc, and vitamin-C and D at home. dexamethasone 6mg PO BID Continue remdesivir Day 4 baricitinib 4mg PO daily started 01/02/21 Convalescent plasma 01/03/21 Vit B,C,D, and zinc are all on board Continue airborne, contact, and droplet isolation. repeat D. Dimer and CRP tomorrow Reporting diarrhea, Florastor and banatrol added Flonase for nasal congestion (3) Syncope: Qualifiers: Syncope type: unspecified Qualified Code(s): R55 - Syncope and collapse Code(s): R55 - Syncope and collapse Status: Acute Assessment and Plan: another episode today 01/03/21 probably from hypoxia, maybe vagal maneuver monitored on telemetry which is SR 80s ST 120s with activity Repeat orthostatic blood pressure L:140/69 S:110/55 ST: 89/52 will half the metoprolol, but this could be from the tachycardia education about changing position slowly carotid us ordered Echocardiogram EF >70% Initiate fall precautions. (4) Dehydration: Code(s): E86.0 - Dehydration Status: Acute Assessment and Plan: avoid over-hydration. Encouraged p.o. intake. no noted vomiting, diarrhea present seems to be ok right now (5) Hyponatremia: Code(s): E87.1 - Hypo-osmolality and hyponatremia Status: Acute Assessment and Plan: Sodium 135 today Could be hypervolemia, Repeat Lasix 40mg IV, BNP elevated at 135 trend lab (6) Gastroesophageal reflux disease: Code(s): K21.9 - Gastro-esophageal reflux disease without esophagitis Status: Acute Assessment and Plan: Continue PPI. (7) Transaminitis: Code(s): R74.01 - Elevation of levels of liver transaminase levels Status: Acute Assessment and Plan: Liver enzymes elevated 65/98 staying stable Have been elevated since admission probably secondary to COVID will continue to trend Hepatitis panel negative Subjective Date/time seen: 01/04/21 08:10 Interval history: 01/03/21 1200 Patient is a 60-year-old female who is here for COVID-19. Roughly at time of examination patient was a rapid response. Patient was up to the chair and did have a syncopal episode. Oxygen has been titrated to meet the demand. Patient is currently on 14L high flow sating 94-95%. When I went into assess the patient she said that she just got a little dizzy which is something that she originally came for as well. She did say that she has a cough, which she stated that she wished it was better. She denies chest pain, fevers, sweats, chills. I did update her daughter today about her condition. I think that some of the problem is that the patient is not sleeping well. I also think that the patient is very anxious and nervous about all of this stuff and the family problems that have been going on. At 1441 Patient was updated about care plan and further orders that have been placed. All questions have been answered and patient verbalized understanding. Case was reviewed with Dr. Acuna which recommendations were made and medications adjusted 01/04/21 08:10
[2021-01-04] MEDS: ALPRAZolam (*CRX) 0.125 MG TABLET PO (08:45)
[2021-01-04 09:16] LABS: NT Pro B Type Natriuretic Pept 135 pg/mL (5-100)
[2021-01-04] MEDS: CHOLECALCIFEROL 1,000 UNITS TABLET 2000 UNITS BY MOUTH (09:44)
[2021-01-04] MEDS: ENOXAPARIN 40 MG/0.4 ML SYRINGE SUB-Q (09:44)
[2021-01-04] MEDS: VITAMIN B COMPLEX CAPSULE 1 CAP BY MOUTH (09:45)
[2021-01-04] MEDS: METOPROLOL SUCCINATE EXT REL 12.5 MG TABCR PO (09:45)
[2021-01-04] MEDS: BARICITINIB 2 MG TABLET 4 MG PO (09:45)
[2021-01-04] MEDS: DEXAMETHASONE 2 MG TABLET 6 MG PO ×2 (09:45→18:28)
[2021-01-04] MEDS: ASCORBIC ACID 500 MG TABLET 1000 MG PO ×2 (09:45→18:30)
[2021-01-04] MEDS: guaiFENesin 12 HR 600 MG TABCR PO ×2 (09:46→20:56)
[2021-01-04] MEDS: ZINC SULFATE 220 MG CAPSULE PO ×2 (09:46→18:30)
[2021-01-04] MEDS: FUROSEMIDE INJ 40 MG/4 ML VIAL IV PUSH (12:36)
[2021-01-04] MEDS: PANTOPRAZOLE 40 MG TABLET PO ×2 (12:37→20:56)
[2021-01-04 17:00] LABS: Alanine Aminotransferase 115 U/L (4-35)
[2021-01-04] MEDS: SACCHAROMYCES BOULARDII 250 MG CAPSULE PO (18:28)
[2021-01-04] MEDS: FLUTICASONE PROPIONATE 0.05% NA SPR 16 GM BTL (*BKC) 1 SPRAY NASAL (20:56)
[2021-01-04] MEDS: MELATONIN 5 MG TABLET PO (20:56)
[2021-01-04] MEDS: REMDESIVIR 100 MG/NS 250 ML 100 MG/250 ML BAG 250 MG IVPB (21:30)
[2021-01-05] VITALS (11 sets, daily range): BP systolic 116–142; BP diastolic 64–91; PULSE 87–108; RESP 18–22; TEMP 36.1–37.7; O2SAT 90–96
[2021-01-05 06:55] LABS: Basophils Percent Auto 0.1 % (0.2-1.2); Hematocrit 39.3 % (37.0-47.0); Hemoglobin 13.4 g/dL (12.0-15.0); Immature Granulocyte Absolute 0.07 K/mm3 (0.00-0.031); Immature Granulocyte Percent A 0.8 % (0-0.5); Lymphocytes Absolute Auto 0.78 K/mm3 (0.9-3.2); Mean Corpuscular HGB Conc 34.1 g/dl (32-36); Mean Corpuscular Hemoglobin 28.3 pg (26-34); Mean Corpuscular Volume 82.9 fl (80-100); Mean Platelet Volume 10.2 fl (7.4-10.4); Monocytes Absolute Auto 1.2 K/mm3 (0.1-0.6); Monocytes Percent Auto 14.2 % (2.6-8.5); Neutrophils Absolute Auto 6.6 K/mm3 (1.3-6.7); Neutrophils Percent Auto 75.9 % (45.5-73.1); Platelet Count Result 373 k/mm3 (150-375); Red Blood Count 4.74 M/mm3 (4.2-5.4); Red Cell Distribution Width 12.7 % (11.5-14.5); White Blood Count 8.7 K/mm3 (4.5-10.0)
[2021-01-05 07:02] LABS: Prothrombin Time 13.5 Seconds (11.1-14.7)
[2021-01-05 07:02] LABS: Alanine Aminotransferase 105 U/L (4-35); Albumin Level 3.7 g/dL (3.5-5.1); Alkaline Phosphatase 103 U/L (38-126); Anion Gap 9 mmol/L (8-16); Aspartate Amino Transferase 53 U/L (14-36); Bilirubin,Total 1.2 mg/dL (0.2-1.3); Blood Urea Nitrogen 14 mg/dL (7-17); CRP 1.1 mg/dL (<1.0); Calcium 9.1 mg/dL (8.4-10.2); Carbon Dioxide 28 mmol/L (22-30); Chloride 95 mmol/L (98-107); Estimated CRCL calculation 77 ml/min; Estimated Glomerular Filt Rate > 60; Glucose 125 mg/dL (65-110); Potassium 3.5 mmol/L (3.4-5.0); Sodium 132 mmol/L (137-145)
[2021-01-05 07:04] LABS: D Dimer 0.44 ug/mL (<0.48)
[2021-01-05] MEDS: BARICITINIB 2 MG TABLET 4 MG PO (09:27)
[2021-01-05] MEDS: METOPROLOL SUCCINATE EXT REL 12.5 MG TABCR 6.25 MG PO (09:27)
[2021-01-05] MEDS: DEXAMETHASONE 2 MG TABLET 6 MG PO ×2 (09:30→18:15)
[2021-01-05] MEDS: VITAMIN B COMPLEX CAPSULE 1 CAP BY MOUTH (09:30)
[2021-01-05] MEDS: SACCHAROMYCES BOULARDII 250 MG CAPSULE PO ×2 (09:30→18:15)
[2021-01-05] MEDS: PANTOPRAZOLE 40 MG TABLET PO ×2 (09:30→20:17)
[2021-01-05] MEDS: CHOLECALCIFEROL 1,000 UNITS TABLET 2000 UNITS BY MOUTH (09:30)
[2021-01-05] MEDS: ASCORBIC ACID 500 MG TABLET 1000 MG PO ×2 (09:31→18:15)
[2021-01-05] MEDS: ENOXAPARIN 40 MG/0.4 ML SYRINGE SUB-Q (09:31)
[2021-01-05] MEDS: FUROSEMIDE INJ 40 MG/4 ML VIAL IV PUSH (09:31)
[2021-01-05] MEDS: guaiFENesin 12 HR 600 MG TABCR PO ×2 (09:37→20:17)
[2021-01-05] MEDS: ZINC SULFATE 220 MG CAPSULE PO ×2 (09:38→18:16)
[2021-01-05] MEDS: FLUTICASONE PROPIONATE 0.05% NA SPR 16 GM BTL (*BKC) 1 SPRAY NASAL ×2 (09:38→20:18)
--- NOTE | 2021-01-05 12:03 | P.PNIM_ITS ---
Progress Note: A&P Assessment and Plan (1) Hypoxia: Code(s): R09.02 - Hypoxemia Status: Acute Assessment and Plan: * Secondary to COVID pneumonia. * CTA of the chest showed no central pulmonary embolus 12/30/20 * Times of tachycardia noted on the tele monitor review, better with addition of metoprolol 6.25 * No chest pain noted D.Dimer was normal 0.42 01/03/21 * Currently on 10 L high flow canula * Wean oxygen to maintain saturation greater than 90% * Decadron will increase to BID and Lovenox * Continue remedesivir, baricitinib, Decadron * Lasix 40mg IV once * Stable on high flow cannula ok to move out of IMU (2) Pneumonia due to COVID-19 virus: Code(s): U07.1 - COVID-19; J12.82 - Pneumonia due to coronavirus disease 2019 Status: Acute Assessment and Plan: * did not receive a COVID vaccination. * prophylactically on hydroxychloroquine, zinc, and vitamin-C and D at home. * dexamethasone 6mg PO BID * Continue remdesivir Day 5 will extend for the full 10 days * baricitinib 4mg PO daily started 01/02/21 * Convalescent plasma 01/03/21 * Vit B,C,D, and zinc are all on board * Continue airborne, contact, and droplet isolation. * repeat D. Dimer and CRP tomorrow * Reporting diarrhea, Florastor and banatrol added * Flonase for nasal congestion (3) Syncope: Qualifiers: Syncope type: unspecified Qualified Code(s): R55 - Syncope and collapse Code(s): R55 - Syncope and collapse Status: Acute Assessment and Plan: * another episode today 01/03/21 probably from hypoxia, maybe vagal maneuver * monitored on telemetry which is SR 80s ST 120s with activity * Repeat orthostatic blood pressure L:121/64 S:122/71 ST: 134/91 (01/05/21) * metoprolol 6.25, but this could be from the tachycardia * education about changing position slowly * carotid us ordered * Echocardiogram EF >70% * Initiate fall precautions. (4) Dehydration: Code(s): E86.0 - Dehydration Status: Acute Assessment and Plan: * avoid over-hydration. * Encouraged p.o. intake. * no noted vomiting, diarrhea present * 40mg IV lasix (5) Hyponatremia: Code(s): E87.1 - Hypo-osmolality and hyponatremia Status: Acute Assessment and Plan: * Sodium 135 today * Could be hypervolemia, * Iv lasix 40mg * trend lab (6) Gastroesophageal reflux disease: Code(s): K21.9 - Gastro-esophageal reflux disease without esophagitis Status: Acute Assessment and Plan: * Continue PPI. (7) Transaminitis: Code(s): R74.01 - Elevation of levels of liver transaminase levels Status: Acute Assessment and Plan: * Liver enzymes elevated 53/105 staying stable * Have been elevated since admission probably secondary to COVID * will continue to trend * Hepatitis panel negative Subjective Date/time seen: 01/05/21 10:00 Interval history: 01/03/21 1200 Patient is a 60-year-old female who is here for COVID-19. Roughly at time of examination patient was a rapid response. Patient was up to the chair and did have a syncopal episode. Oxygen has been titrated to meet the demand. Patient is currently on 14L high flow sating 94-95%. When I went into assess the patient she said that she just got a little dizzy which is something that she originally came for as well. She did say that she has a cough, which she s
--- NOTE | 2021-01-05 12:03 | PM.IMPN ---
Progress Note: A&P Assessment and Plan (1) Hypoxia: Code(s): R09.02 - Hypoxemia Status: Acute Assessment and Plan: Secondary to COVID pneumonia. CTA of the chest showed no central pulmonary embolus 12/30/20 Times of tachycardia noted on the tele monitor review, better with addition of metoprolol 6.25 No chest pain noted D.Dimer was normal 0.42 01/03/21 Currently on 10 L high flow canula Wean oxygen to maintain saturation greater than 90% Decadron will increase to BID and Lovenox Continue remedesivir, baricitinib, Decadron Lasix 40mg IV once Stable on high flow cannula ok to move out of IMU (2) Pneumonia due to COVID-19 virus: Code(s): U07.1 - COVID-19; J12.82 - Pneumonia due to coronavirus disease 2019 Status: Acute Assessment and Plan: did not receive a COVID vaccination. prophylactically on hydroxychloroquine, zinc, and vitamin-C and D at home. dexamethasone 6mg PO BID Continue remdesivir Day 5 will extend for the full 10 days baricitinib 4mg PO daily started 01/02/21 Convalescent plasma 01/03/21 Vit B,C,D, and zinc are all on board Continue airborne, contact, and droplet isolation. repeat D. Dimer and CRP tomorrow Reporting diarrhea, Florastor and banatrol added Flonase for nasal congestion (3) Syncope: Qualifiers: Syncope type: unspecified Qualified Code(s): R55 - Syncope and collapse Code(s): R55 - Syncope and collapse Status: Acute Assessment and Plan: another episode today 01/03/21 probably from hypoxia, maybe vagal maneuver monitored on telemetry which is SR 80s ST 120s with activity Repeat orthostatic blood pressure L:121/64 S:122/71 ST: 134/91 (01/05/21) metoprolol 6.25, but this could be from the tachycardia education about changing position slowly carotid us ordered Echocardiogram EF >70% Initiate fall precautions. (4) Dehydration: Code(s): E86.0 - Dehydration Status: Acute Assessment and Plan: avoid over-hydration. Encouraged p.o. intake. no noted vomiting, diarrhea present 40mg IV lasix (5) Hyponatremia: Code(s): E87.1 - Hypo-osmolality and hyponatremia Status: Acute Assessment and Plan: Sodium 135 today Could be hypervolemia, Iv lasix 40mg trend lab (6) Gastroesophageal reflux disease: Code(s): K21.9 - Gastro-esophageal reflux disease without esophagitis Status: Acute Assessment and Plan: Continue PPI. (7) Transaminitis: Code(s): R74.01 - Elevation of levels of liver transaminase levels Status: Acute Assessment and Plan: Liver enzymes elevated 53/105 staying stable Have been elevated since admission probably secondary to COVID will continue to trend Hepatitis panel negative Subjective Date/time seen: 01/05/21 10:00 Interval history: 01/03/21 1200 Patient is a 60-year-old female who is here for COVID-19. Roughly at time of examination patient was a rapid response. Patient was up to the chair and did have a syncopal episode. Oxygen has been titrated to meet the demand. Patient is currently on 14L high flow sating 94-95%. When I went into assess the patient she said that she just got a little dizzy which is something that she originally came for as well. She did say that she has a cough, which she stated that she wished it was better. She denies chest pain, fevers, sweats, chills. I did update her daughter today about her condition. I think that some of the problem is that the patient is not sleeping well. I also think that the patient is very anxious and nervous about all of this stuff and the family problems that have been going on. At 1441 Patient was updated about care plan and further orders that have been placed. All questions have been answered and patient verbalized understanding. Case was reviewed with Dr. Acuna wh
--- NOTE | 2021-01-05 16:18 | PCRCNOTE ---
Window of time for administration has passed. See next scheduled administration.
[2021-01-05 17:08] LABS: Alanine Aminotransferase 129 U/L (4-35)
[2021-01-05] MEDS: ALPRAZolam (*CRX) 0.125 MG TABLET PO (20:17)
[2021-01-05] MEDS: LEVALBUTEROL HFA (*SP) 15 GM INHALER 2 PUFF INHALATION (20:48)
[2021-01-05] MEDS: REMDESIVIR 100 MG/NS 250 ML 100 MG/250 ML BAG 250 MG IVPB (22:16)
[2021-01-06] VITALS (12 sets, daily range): BP systolic 118–145; BP diastolic 68–90; PULSE 83–130; RESP 16–24; TEMP 36.2–37; O2SAT 90–93
[2021-01-06] MEDS: LEVALBUTEROL HFA (*SP) 15 GM INHALER 2 PUFF INHALATION ×4 (02:07→21:55)
[2021-01-06 06:36] LABS: Basophils Percent Auto 0.1 % (0.2-1.2); Hematocrit 40.8 % (37.0-47.0); Hemoglobin 13.8 g/dL (12.0-15.0); Immature Granulocyte Absolute 0.09 K/mm3 (0.00-0.031); Immature Granulocyte Percent A 0.7 % (0-0.5); Lymphocytes Absolute Auto 0.88 K/mm3 (0.9-3.2); Lymphocytes Percent Auto 6.6 % (18.3-44.2); Mean Corpuscular HGB Conc 33.8 g/dl (32-36); Mean Corpuscular Hemoglobin 27.7 pg (26-34); Mean Corpuscular Volume 81.9 fl (80-100); Mean Platelet Volume 10.2 fl (7.4-10.4); Monocytes Absolute Auto 1.7 K/mm3 (0.1-0.6); Monocytes Percent Auto 12.8 % (2.6-8.5); Neutrophils Absolute Auto 10.7 K/mm3 (1.3-6.7); Neutrophils Percent Auto 79.8 % (45.5-73.1); Platelet Count Result 293 k/mm3 (150-375); Red Blood Count 4.98 M/mm3 (4.2-5.4); Red Cell Distribution Width 12.4 % (11.5-14.5); White Blood Count 13.4 K/mm3 (4.5-10.0)
[2021-01-06 06:52] LABS: D Dimer 0.36 ug/mL (<0.48)
[2021-01-06 07:01] LABS: Alanine Aminotransferase 112 U/L (4-35); Albumin Level 3.8 g/dL (3.5-5.1); Alkaline Phosphatase 108 U/L (38-126); Anion Gap 12 mmol/L (8-16); Aspartate Amino Transferase 46 U/L (14-36); Bilirubin,Total 1.2 mg/dL (0.2-1.3); Blood Urea Nitrogen 14 mg/dL (7-17); CRP 0.7 mg/dL (<1.0); Calcium 9.3 mg/dL (8.4-10.2); Carbon Dioxide 28 mmol/L (22-30); Chloride 93 mmol/L (98-107); Estimated CRCL calculation 91 ml/min; Estimated Glomerular Filt Rate > 60; Glucose 125 mg/dL (65-110); Magnesium 2.1 mg/dL (1.6-2.3); Potassium 3.5 mmol/L (3.4-5.0); Sodium 133 mmol/L (137-145)
[2021-01-06] MEDS: ENOXAPARIN 40 MG/0.4 ML SYRINGE SUB-Q (08:55)
[2021-01-06] MEDS: guaiFENesin 12 HR 600 MG TABCR PO ×2 (08:56→21:26)
[2021-01-06] MEDS: ASCORBIC ACID 500 MG TABLET 1000 MG PO ×2 (08:56→18:38)
[2021-01-06] MEDS: DEXAMETHASONE 2 MG TABLET 6 MG PO ×2 (08:56→18:39)
[2021-01-06] MEDS: BARICITINIB 2 MG TABLET 4 MG PO (08:57)
[2021-01-06] MEDS: METOPROLOL SUCCINATE EXT REL 12.5 MG TABCR 6.25 MG PO (08:58)
[2021-01-06] MEDS: CHOLECALCIFEROL 1,000 UNITS TABLET 2000 UNITS BY MOUTH (08:58)
[2021-01-06] MEDS: ZINC SULFATE 220 MG CAPSULE PO ×2 (08:59→18:38)
[2021-01-06] MEDS: PANTOPRAZOLE 40 MG TABLET PO ×2 (08:59→21:26)
[2021-01-06] MEDS: FLUTICASONE PROPIONATE 0.05% NA SPR 16 GM BTL (*BKC) 1 SPRAY NASAL ×2 (09:00→21:27)
[2021-01-06] MEDS: VITAMIN B COMPLEX CAPSULE 1 CAP BY MOUTH (09:00)
[2021-01-06] MEDS: SACCHAROMYCES BOULARDII 250 MG CAPSULE PO ×2 (09:00→18:38)
[2021-01-06 09:25] LABS: Prothrombin Time 13.1 Seconds (11.1-14.7)
--- NOTE | 2021-01-06 09:52 | P.PNIM_ITS ---
Progress Note: A&P Assessment and Plan (1) Hypoxia: Code(s): R09.02 - Hypoxemia Status: Acute Assessment and Plan: * Secondary to COVID pneumonia. * CTA of the chest showed no central pulmonary embolus 12/30/20 * Times of tachycardia noted on the tele monitor review, better with addition of metoprolol 6.25 * No chest pain noted D.Dimer was normal 0.42 01/03/21 * Currently on 10 L high flow canula * Wean oxygen to maintain saturation greater than 90% * Decadron will increase to BID and Lovenox * Continue remedesivir, baricitinib, Decadron * Lasix 40mg IV once * Stable on high flow cannula ok to move out of IMU (2) Pneumonia due to COVID-19 virus: Code(s): U07.1 - COVID-19; J12.82 - Pneumonia due to coronavirus disease 2019 Status: Acute Assessment and Plan: * did not receive a COVID vaccination. * prophylactically on hydroxychloroquine, zinc, and vitamin-C and D at home. * dexamethasone 6mg PO BID * Continue remdesivir Day 5 will extend for the full 10 days * baricitinib 4mg PO daily started 01/02/21 * Convalescent plasma 01/03/21 * Vit B,C,D, and zinc are all on board * Continue airborne, contact, and droplet isolation. * repeat D. Dimer and CRP tomorrow * Reporting diarrhea, Florastor and banatrol added * Flonase for nasal congestion (3) Syncope: Qualifiers: Syncope type: unspecified Qualified Code(s): R55 - Syncope and collapse Code(s): R55 - Syncope and collapse Status: Acute Assessment and Plan: * another episode today 01/03/21 probably from hypoxia, maybe vagal maneuver * monitored on telemetry which is SR 80s ST 120s with activity * Repeat orthostatic blood pressure L:121/64 S:122/71 ST: 134/91 (01/05/21) * metoprolol 6.25, but this could be from the tachycardia * education about changing position slowly * carotid us ordered * Echocardiogram EF >70% * Initiate fall precautions. (4) Dehydration: Code(s): E86.0 - Dehydration Status: Acute Assessment and Plan: * avoid over-hydration. * Encouraged p.o. intake. * no noted vomiting, diarrhea present * 40mg IV lasix (5) Hyponatremia: Code(s): E87.1 - Hypo-osmolality and hyponatremia Status: Acute Assessment and Plan: * Sodium 135 today * Could be hypervolemia, * Iv lasix 40mg * trend lab (6) Gastroesophageal reflux disease: Code(s): K21.9 - Gastro-esophageal reflux disease without esophagitis Status: Acute Assessment and Plan: * Continue PPI. (7) Transaminitis: Code(s): R74.01 - Elevation of levels of liver transaminase levels Status: Acute Assessment and Plan: * Liver enzymes elevated 53/105 staying stable * Have been elevated since admission probably secondary to COVID * will continue to trend * Hepatitis panel negative Additional Plan Still requiring nonrebreather to maintain oxygen saturation at safe level Day 5 Remdesivir & Day 6 IV steroids, Day 5 Baricitinib Q6 albuterol & Q12 decongestant continue to monitor resp status - pt is full code Time Spent With Patient Time with patient: less than 15 minutes Subjective Date/time seen: 01/06/21 09:52 no acute medical complaints Review of Systems Review of Systems: All systems reviewed & are unremarkable except as noted in HPI and below Exam Const: General: no acute
--- NOTE | 2021-01-06 09:52 | PM.IMPN ---
Progress Note: A&P Assessment and Plan (1) Hypoxia: Code(s): R09.02 - Hypoxemia Status: Acute Assessment and Plan: Secondary to COVID pneumonia. CTA of the chest showed no central pulmonary embolus 12/30/20 Times of tachycardia noted on the tele monitor review, better with addition of metoprolol 6.25 No chest pain noted D.Dimer was normal 0.42 01/03/21 Currently on 10 L high flow canula Wean oxygen to maintain saturation greater than 90% Decadron will increase to BID and Lovenox Continue remedesivir, baricitinib, Decadron Lasix 40mg IV once Stable on high flow cannula ok to move out of IMU (2) Pneumonia due to COVID-19 virus: Code(s): U07.1 - COVID-19; J12.82 - Pneumonia due to coronavirus disease 2019 Status: Acute Assessment and Plan: did not receive a COVID vaccination. prophylactically on hydroxychloroquine, zinc, and vitamin-C and D at home. dexamethasone 6mg PO BID Continue remdesivir Day 5 will extend for the full 10 days baricitinib 4mg PO daily started 01/02/21 Convalescent plasma 01/03/21 Vit B,C,D, and zinc are all on board Continue airborne, contact, and droplet isolation. repeat D. Dimer and CRP tomorrow Reporting diarrhea, Florastor and banatrol added Flonase for nasal congestion (3) Syncope: Qualifiers: Syncope type: unspecified Qualified Code(s): R55 - Syncope and collapse Code(s): R55 - Syncope and collapse Status: Acute Assessment and Plan: another episode today 01/03/21 probably from hypoxia, maybe vagal maneuver monitored on telemetry which is SR 80s ST 120s with activity Repeat orthostatic blood pressure L:121/64 S:122/71 ST: 134/91 (01/05/21) metoprolol 6.25, but this could be from the tachycardia education about changing position slowly carotid us ordered Echocardiogram EF >70% Initiate fall precautions. (4) Dehydration: Code(s): E86.0 - Dehydration Status: Acute Assessment and Plan: avoid over-hydration. Encouraged p.o. intake. no noted vomiting, diarrhea present 40mg IV lasix (5) Hyponatremia: Code(s): E87.1 - Hypo-osmolality and hyponatremia Status: Acute Assessment and Plan: Sodium 135 today Could be hypervolemia, Iv lasix 40mg trend lab (6) Gastroesophageal reflux disease: Code(s): K21.9 - Gastro-esophageal reflux disease without esophagitis Status: Acute Assessment and Plan: Continue PPI. (7) Transaminitis: Code(s): R74.01 - Elevation of levels of liver transaminase levels Status: Acute Assessment and Plan: Liver enzymes elevated 53/105 staying stable Have been elevated since admission probably secondary to COVID will continue to trend Hepatitis panel negative Additional Plan Still requiring nonrebreather to maintain oxygen saturation at safe level Day 5 Remdesivir & Day 6 IV steroids, Day 5 Baricitinib Q6 albuterol & Q12 decongestant continue to monitor resp status - pt is full code Time Spent With Patient Time with patient: less than 15 minutes Subjective Date/time seen: 01/06/21 09:52 no acute medical complaints Review of Systems Review of Systems: All systems reviewed & are unremarkable except as noted in HPI and below Exam Const: General: no acute distress Neck: Neck: no JVD Resp: Effort & Inspection: normal respiratory effort Auscultation: clear to auscultation bilaterally Cardio: Rate: regular rate Rhythm: regular rhythm GI: GI Palp: Yes Soft to palpation and No Tenderness to palpation present (GI) Objective Data Vital Signs Vital Signs: Vital Signs - 24 hr 01/05/21 12:00 01/05/21 16:00 01/05/21 20:00 Temperature 98.1 F 98.7 F 97.8 F Pulse Rate 108 H 90 89 Respiratory Rate 20 20 18 Blood Pressure 120/74 127/71 126/80 Pulse Oximetry 92 96 90 01/05/21 20:53 01/06/21 00:00 01/06/21 03:51 T
--- NOTE | 2021-01-06 11:13 | PCNWS ---
Weekly nutritional screen. Patient is tolerating current diet with adequate intake. No weight loss reported. No nutritional needs at this time.
[2021-01-06] MEDS: ALPRAZolam (*CRX) 0.125 MG TABLET PO ×2 (14:52→21:26)
[2021-01-06 17:09] LABS: Alanine Aminotransferase 113 U/L (4-35)
[2021-01-06] MEDS: REMDESIVIR 100 MG/NS 250 ML 100 MG/250 ML BAG 250 MG IVPB (21:26)
[2021-01-07] VITALS (14 sets, daily range): BP systolic 124–149; BP diastolic 68–90; PULSE 78–130; RESP 16–20; TEMP 36.5–37; O2SAT 90–97
[2021-01-07] MEDS: LEVALBUTEROL HFA (*SP) 15 GM INHALER 2 PUFF INHALATION ×4 (02:56→20:24)
[2021-01-07 06:23] LABS: Basophils Percent Auto 0.1 % (0.2-1.2); Hematocrit 41.9 % (37.0-47.0); Hemoglobin 14.2 g/dL (12.0-15.0); Immature Granulocyte Absolute 0.29 K/mm3 (0.00-0.031); Immature Granulocyte Percent A 1.3 % (0-0.5); Mean Corpuscular HGB Conc 33.9 g/dl (32-36); Mean Corpuscular Hemoglobin 27.9 pg (26-34); Mean Corpuscular Volume 82.3 fl (80-100); Monocytes Absolute Auto 2.2 K/mm3 (0.1-0.6); Monocytes Percent Auto 9.9 % (2.6-8.5); Neutrophils Absolute Auto 18.4 K/mm3 (1.3-6.7); Neutrophils Percent Auto 83.7 % (45.5-73.1); Platelet Count Result 605 k/mm3 (150-375); Red Blood Count 5.09 M/mm3 (4.2-5.4); Red Cell Distribution Width 12.5 % (11.5-14.5)
[2021-01-07 07:20] LABS: Alanine Aminotransferase 99 U/L (4-35); Albumin Level 3.8 g/dL (3.5-5.1); Alkaline Phosphatase 104 U/L (38-126); Anion Gap 10 mmol/L (8-16); Aspartate Amino Transferase 31 U/L (14-36); Bilirubin,Total 1.2 mg/dL (0.2-1.3); Blood Urea Nitrogen 12 mg/dL (7-17); Calcium 9.1 mg/dL (8.4-10.2); Carbon Dioxide 27 mmol/L (22-30); Chloride 96 mmol/L (98-107); Estimated CRCL calculation 91 ml/min; Estimated Glomerular Filt Rate > 60; Glucose 136 mg/dL (65-110); Magnesium 2.4 mg/dL (1.6-2.3); Phosphorus 4.1 mg/dL (2.5-4.5); Sodium 133 mmol/L (137-145)
[2021-01-07] MEDS: SACCHAROMYCES BOULARDII 250 MG CAPSULE PO ×2 (08:19→17:28)
[2021-01-07] MEDS: ENOXAPARIN 40 MG/0.4 ML SYRINGE SUB-Q (08:19)
[2021-01-07] MEDS: ZINC SULFATE 220 MG CAPSULE PO ×2 (08:20→17:28)
[2021-01-07] MEDS: METOPROLOL SUCCINATE EXT REL 12.5 MG TABCR 6.25 MG PO (08:20)
[2021-01-07] MEDS: BARICITINIB 2 MG TABLET 4 MG PO (08:21)
[2021-01-07] MEDS: DEXAMETHASONE 2 MG TABLET 6 MG PO ×2 (08:21→17:28)
[2021-01-07] MEDS: ASCORBIC ACID 500 MG TABLET 1000 MG PO ×2 (08:21→17:28)
[2021-01-07] MEDS: CHOLECALCIFEROL 1,000 UNITS TABLET 2000 UNITS BY MOUTH (08:21)
[2021-01-07] MEDS: guaiFENesin 12 HR 600 MG TABCR PO ×2 (08:22→21:46)
[2021-01-07] MEDS: FLUTICASONE PROPIONATE 0.05% NA SPR 16 GM BTL (*BKC) 1 SPRAY NASAL (08:22)
[2021-01-07] MEDS: PANTOPRAZOLE 40 MG TABLET PO ×2 (08:22→21:46)
[2021-01-07] MEDS: VITAMIN B COMPLEX CAPSULE 1 CAP BY MOUTH (08:22)
--- NOTE | 2021-01-07 10:23 | P.PNIM_ITS ---
Progress Note: A&P Assessment and Plan (1) Hypoxia: Code(s): R09.02 - Hypoxemia Status: Acute Assessment and Plan: * Secondary to COVID pneumonia. * CTA of the chest showed no central pulmonary embolus 12/30/20 * Times of tachycardia noted on the tele monitor review, better with addition of metoprolol 6.25 * No chest pain noted D.Dimer was normal 0.42 01/03/21 * Currently on 10 L high flow canula * Wean oxygen to maintain saturation greater than 90% * Decadron will increase to BID and Lovenox * Continue remedesivir, baricitinib, Decadron * Lasix 40mg IV once * Stable on high flow cannula ok to move out of IMU (2) Pneumonia due to COVID-19 virus: Code(s): U07.1 - COVID-19; J12.82 - Pneumonia due to coronavirus disease 2019 Status: Acute Assessment and Plan: * did not receive a COVID vaccination. * prophylactically on hydroxychloroquine, zinc, and vitamin-C and D at home. * dexamethasone 6mg PO BID * Continue remdesivir Day 5 will extend for the full 10 days * baricitinib 4mg PO daily started 01/02/21 * Convalescent plasma 01/03/21 * Vit B,C,D, and zinc are all on board * Continue airborne, contact, and droplet isolation. * repeat D. Dimer and CRP tomorrow * Reporting diarrhea, Florastor and banatrol added * Flonase for nasal congestion (3) Syncope: Qualifiers: Syncope type: unspecified Qualified Code(s): R55 - Syncope and collapse Code(s): R55 - Syncope and collapse Status: Acute Assessment and Plan: * another episode today 01/03/21 probably from hypoxia, maybe vagal maneuver * monitored on telemetry which is SR 80s ST 120s with activity * Repeat orthostatic blood pressure L:121/64 S:122/71 ST: 134/91 (01/05/21) * metoprolol 6.25, but this could be from the tachycardia * education about changing position slowly * carotid us ordered * Echocardiogram EF >70% * Initiate fall precautions. (4) Dehydration: Code(s): E86.0 - Dehydration Status: Acute Assessment and Plan: * avoid over-hydration. * Encouraged p.o. intake. * no noted vomiting, diarrhea present * 40mg IV lasix (5) Hyponatremia: Code(s): E87.1 - Hypo-osmolality and hyponatremia Status: Acute Assessment and Plan: * Sodium 135 today * Could be hypervolemia, * Iv lasix 40mg * trend lab (6) Gastroesophageal reflux disease: Code(s): K21.9 - Gastro-esophageal reflux disease without esophagitis Status: Acute Assessment and Plan: * Continue PPI. (7) Transaminitis: Code(s): R74.01 - Elevation of levels of liver transaminase levels Status: Acute Assessment and Plan: * Liver enzymes elevated 53/105 staying stable * Have been elevated since admission probably secondary to COVID * will continue to trend * Hepatitis panel negative Additional Plan continue steroids, remdesivir, and baricitinib wean off oxygen as tolerated - not feasible at the moment, patient cannot tolerate even a few moments off of nonrebreather providing 100% FiO2 guarded overall prognosis, noted she is full code Time Spent With Patient Time with patient: less than 15 minutes Subjective Date/time seen: 01/07/21 10:23 no major changes in clinical status still needing supplemental O2 Review of Systems Review of Systems: All systems reviewed & are unremarkable except as noted in H
--- NOTE | 2021-01-07 10:23 | PM.IMPN ---
Progress Note: A&P Assessment and Plan (1) Hypoxia: Code(s): R09.02 - Hypoxemia Status: Acute Assessment and Plan: Secondary to COVID pneumonia. CTA of the chest showed no central pulmonary embolus 12/30/20 Times of tachycardia noted on the tele monitor review, better with addition of metoprolol 6.25 No chest pain noted D.Dimer was normal 0.42 01/03/21 Currently on 10 L high flow canula Wean oxygen to maintain saturation greater than 90% Decadron will increase to BID and Lovenox Continue remedesivir, baricitinib, Decadron Lasix 40mg IV once Stable on high flow cannula ok to move out of IMU (2) Pneumonia due to COVID-19 virus: Code(s): U07.1 - COVID-19; J12.82 - Pneumonia due to coronavirus disease 2019 Status: Acute Assessment and Plan: did not receive a COVID vaccination. prophylactically on hydroxychloroquine, zinc, and vitamin-C and D at home. dexamethasone 6mg PO BID Continue remdesivir Day 5 will extend for the full 10 days baricitinib 4mg PO daily started 01/02/21 Convalescent plasma 01/03/21 Vit B,C,D, and zinc are all on board Continue airborne, contact, and droplet isolation. repeat D. Dimer and CRP tomorrow Reporting diarrhea, Florastor and banatrol added Flonase for nasal congestion (3) Syncope: Qualifiers: Syncope type: unspecified Qualified Code(s): R55 - Syncope and collapse Code(s): R55 - Syncope and collapse Status: Acute Assessment and Plan: another episode today 01/03/21 probably from hypoxia, maybe vagal maneuver monitored on telemetry which is SR 80s ST 120s with activity Repeat orthostatic blood pressure L:121/64 S:122/71 ST: 134/91 (01/05/21) metoprolol 6.25, but this could be from the tachycardia education about changing position slowly carotid us ordered Echocardiogram EF >70% Initiate fall precautions. (4) Dehydration: Code(s): E86.0 - Dehydration Status: Acute Assessment and Plan: avoid over-hydration. Encouraged p.o. intake. no noted vomiting, diarrhea present 40mg IV lasix (5) Hyponatremia: Code(s): E87.1 - Hypo-osmolality and hyponatremia Status: Acute Assessment and Plan: Sodium 135 today Could be hypervolemia, Iv lasix 40mg trend lab (6) Gastroesophageal reflux disease: Code(s): K21.9 - Gastro-esophageal reflux disease without esophagitis Status: Acute Assessment and Plan: Continue PPI. (7) Transaminitis: Code(s): R74.01 - Elevation of levels of liver transaminase levels Status: Acute Assessment and Plan: Liver enzymes elevated 53/105 staying stable Have been elevated since admission probably secondary to COVID will continue to trend Hepatitis panel negative Additional Plan continue steroids, remdesivir, and baricitinib wean off oxygen as tolerated - not feasible at the moment, patient cannot tolerate even a few moments off of nonrebreather providing 100% FiO2 guarded overall prognosis, noted she is full code Time Spent With Patient Time with patient: less than 15 minutes Subjective Date/time seen: 01/07/21 10:23 no major changes in clinical status still needing supplemental O2 Review of Systems Review of Systems: All systems reviewed & are unremarkable except as noted in HPI and below Exam Neck: Neck: no JVD Resp: Effort & Inspection: normal respiratory effort Auscultation: clear to auscultation bilaterally Other: supplemental O2 via nonrebreather Cardio: Rate: regular rate Rhythm: regular rhythm GI: GI Palp: Yes Soft to palpation and No Tenderness to palpation present (GI) Objective Data Vital Signs Vital Signs: Vital Signs - 24 hr 01/06/21 12:00 01/06/21 16:00 01/06/21 20:00 Temperature 97.5 F L 98.6 F 97.4 F L Pulse Rate 130 H 111 H 90 Respiratory Rate 24 H 24 H 16 Blood Pressure 142/80 H 130/76
[2021-01-07 17:16] LABS: Alanine Aminotransferase 87 U/L (4-35)
--- NOTE | 2021-01-07 17:22 | PCRCNOTE ---
Window of time for administration has passed. See next scheduled administration.
[2021-01-07] MEDS: REMDESIVIR 100 MG/NS 250 ML 100 MG/250 ML BAG 250 MG IVPB (21:45)
[2021-01-07] MEDS: MELATONIN 5 MG TABLET PO (21:46)
[2021-01-08] VITALS (12 sets, daily range): BP systolic 113–143; BP diastolic 61–93; PULSE 74–123; RESP 18–24; TEMP 36.2–36.8; O2SAT 90–95
[2021-01-08] MEDS: ALPRAZolam (*CRX) 0.125 MG TABLET PO ×3 (00:28→22:08)
[2021-01-08] MEDS: FLUTICASONE PROPIONATE 0.05% NA SPR 16 GM BTL (*BKC) 1 SPRAY NASAL ×3 (00:30→22:09)
[2021-01-08] MEDS: LEVALBUTEROL HFA (*SP) 15 GM INHALER 2 PUFF INHALATION ×4 (02:18→21:40)
[2021-01-08 07:01] LABS: Basophils Percent Auto 0.1 % (0.2-1.2); Hematocrit 42.3 % (37.0-47.0); Immature Granulocyte Absolute 0.29 K/mm3 (0.00-0.031); Immature Granulocyte Percent A 1.4 % (0-0.5); Lymphocytes Absolute Auto 1.01 K/mm3 (0.9-3.2); Mean Corpuscular HGB Conc 33.1 g/dl (32-36); Mean Corpuscular Hemoglobin 27.2 pg (26-34); Mean Corpuscular Volume 82.1 fl (80-100); Mean Platelet Volume 10.2 fl (7.4-10.4); Monocytes Absolute Auto 1.7 K/mm3 (0.1-0.6); Monocytes Percent Auto 8.2 % (2.6-8.5); Neutrophils Absolute Auto 17.2 K/mm3 (1.3-6.7); Neutrophils Percent Auto 85.3 % (45.5-73.1); Platelet Count Result 424 k/mm3 (150-375); Red Blood Count 5.15 M/mm3 (4.2-5.4); Red Cell Distribution Width 12.4 % (11.5-14.5); White Blood Count 20.2 K/mm3 (4.5-10.0)
[2021-01-08 07:21] LABS: Alanine Aminotransferase 72 U/L (4-35); Albumin Level 3.6 g/dL (3.5-5.1); Alkaline Phosphatase 96 U/L (38-126); Anion Gap 11 mmol/L (8-16); Aspartate Amino Transferase 23 U/L (14-36); Blood Urea Nitrogen 12 mg/dL (7-17); Carbon Dioxide 26 mmol/L (22-30); Chloride 98 mmol/L (98-107); Estimated CRCL calculation 91 ml/min; Estimated Glomerular Filt Rate > 60; Glucose 109 mg/dL (65-110); Magnesium 2.3 mg/dL (1.6-2.3); Phosphorus 3.9 mg/dL (2.5-4.5); Potassium 3.9 mmol/L (3.4-5.0); Sodium 135 mmol/L (137-145)
--- NOTE | 2021-01-08 09:11 | P.PNIM_ITS ---
Progress Note: A&P Assessment and Plan (1) Hypoxia: Code(s): R09.02 - Hypoxemia Status: Acute Assessment and Plan: * Secondary to COVID pneumonia. * CTA of the chest showed no central pulmonary embolus 12/30/20 * Times of tachycardia noted on the tele monitor review, better with addition of metoprolol 6.25 * No chest pain noted D.Dimer was normal 0.42 01/03/21 * Currently on 10 L high flow canula * Wean oxygen to maintain saturation greater than 90% * Decadron will increase to BID and Lovenox * Continue remedesivir, baricitinib, Decadron * Lasix 40mg IV once * Stable on high flow cannula ok to move out of IMU (2) Pneumonia due to COVID-19 virus: Code(s): U07.1 - COVID-19; J12.82 - Pneumonia due to coronavirus disease 2018 Status: Acute Assessment and Plan: * did not receive a COVID vaccination. * prophylactically on hydroxychloroquine, zinc, and vitamin-C and D at home. * dexamethasone 6mg PO BID * baricitinib 4mg PO daily started 01/02/21 * Convalescent plasma 01/03/21 * Vit B,C,D, and zinc are all on board * Continue airborne, contact, and droplet isolation. * Reporting diarrhea, Florastor and banatrol added * Flonase for nasal congestion (3) Dehydration: Code(s): E86.0 - Dehydration Status: Acute Assessment and Plan: * avoid over-hydration. * Encouraged p.o. intake. * no noted vomiting, diarrhea present * 40mg IV lasix (4) Hyponatremia: Code(s): E87.1 - Hypo-osmolality and hyponatremia Status: Acute Assessment and Plan: * Sodium 135 today * Could be hypervolemia, * Iv lasix 40mg * trend lab (5) Gastroesophageal reflux disease: Code(s): K21.9 - Gastro-esophageal reflux disease without esophagitis Status: Acute Assessment and Plan: * Continue PPI. (6) Transaminitis: Code(s): R74.01 - Elevation of levels of liver transaminase levels Status: Acute Assessment and Plan: * Liver enzymes elevated 53/105 staying stable * Have been elevated since admission probably secondary to COVID * will continue to trend * Hepatitis panel negative Additional Plan Covid pneumonia with hypoxic respiratory failure, requiring nonrebreather to maintain O2 Sats Continue Dexamethasone until 01/09, Remdesivir until 01/10; Baricitinib until 01/15 Wean O2 as tolerated, guarded prognosis at this time Time Spent With Patient Time with patient: less than 15 minutes Subjective Date/time seen: 01/08/21 09:11 no subjective complaints denies fever Review of Systems Review of Systems: All systems reviewed & are unremarkable except as noted in HPI and below Exam Const: General: no acute distress Neck: Neck: no JVD Resp: Effort & Inspection: normal respiratory effort Auscultation: clear to auscultation bilaterally Cardio: Rate: regular rate Rhythm: regular rhythm GI: GI Palp: Yes Soft to palpation and No Tenderness to palpation present (GI) Objective Data Vital Signs Vital Signs: Vital Signs - 24 hr 01/07/21 10:29 01/07/21 11:50 01/07/21 11:53 Temperature 97.9 F Pulse Rate 115 H 122 H Respiratory Rate 18 16 Blood Pressure 147/80 H 125/90 Pulse Oximetry 92 94 97 01/07/21 11:56 01/07/21 12:00 12/24
--- NOTE | 2021-01-08 09:11 | PM.IMPN ---
Progress Note: A&P Assessment and Plan (1) Hypoxia: Code(s): R09.02 - Hypoxemia Status: Acute Assessment and Plan: Secondary to COVID pneumonia. CTA of the chest showed no central pulmonary embolus 12/30/20 Times of tachycardia noted on the tele monitor review, better with addition of metoprolol 6.25 No chest pain noted D.Dimer was normal 0.42 01/03/21 Currently on 10 L high flow canula Wean oxygen to maintain saturation greater than 90% Decadron will increase to BID and Lovenox Continue remedesivir, baricitinib, Decadron Lasix 40mg IV once Stable on high flow cannula ok to move out of IMU (2) Pneumonia due to COVID-19 virus: Code(s): U07.1 - COVID-19; J12.82 - Pneumonia due to coronavirus disease 2018 Status: Acute Assessment and Plan: did not receive a COVID vaccination. prophylactically on hydroxychloroquine, zinc, and vitamin-C and D at home. dexamethasone 6mg PO BID baricitinib 4mg PO daily started 01/02/21 Convalescent plasma 01/03/21 Vit B,C,D, and zinc are all on board Continue airborne, contact, and droplet isolation. Reporting diarrhea, Florastor and banatrol added Flonase for nasal congestion (3) Dehydration: Code(s): E86.0 - Dehydration Status: Acute Assessment and Plan: avoid over-hydration. Encouraged p.o. intake. no noted vomiting, diarrhea present 40mg IV lasix (4) Hyponatremia: Code(s): E87.1 - Hypo-osmolality and hyponatremia Status: Acute Assessment and Plan: Sodium 135 today Could be hypervolemia, Iv lasix 40mg trend lab (5) Gastroesophageal reflux disease: Code(s): K21.9 - Gastro-esophageal reflux disease without esophagitis Status: Acute Assessment and Plan: Continue PPI. (6) Transaminitis: Code(s): R74.01 - Elevation of levels of liver transaminase levels Status: Acute Assessment and Plan: Liver enzymes elevated 53/105 staying stable Have been elevated since admission probably secondary to COVID will continue to trend Hepatitis panel negative Additional Plan Covid pneumonia with hypoxic respiratory failure, requiring nonrebreather to maintain O2 Sats Continue Dexamethasone until 01/09, Remdesivir until 01/10; Baricitinib until 01/15 Wean O2 as tolerated, guarded prognosis at this time Time Spent With Patient Time with patient: less than 15 minutes Subjective Date/time seen: 01/08/21 09:11 no subjective complaints denies fever Review of Systems Review of Systems: All systems reviewed & are unremarkable except as noted in HPI and below Exam Const: General: no acute distress Neck: Neck: no JVD Resp: Effort & Inspection: normal respiratory effort Auscultation: clear to auscultation bilaterally Cardio: Rate: regular rate Rhythm: regular rhythm GI: GI Palp: Yes Soft to palpation and No Tenderness to palpation present (GI) Objective Data Vital Signs Vital Signs: Vital Signs - 24 hr 01/07/21 10:29 01/07/21 11:50 01/07/21 11:53 Temperature 97.9 F Pulse Rate 115 H 122 H Respiratory Rate 18 16 Blood Pressure 147/80 H 125/90 Pulse Oximetry 92 94 97 01/07/21 11:56 01/07/21 12:00 01/07/21 16:00 Temperature 98.1 F 98.2 F Pulse Rate 130 H 117 H 100 Respiratory Rate 18 16 18 Blood Pressure 124/68 149/82 H 136/76 Pulse Oximetry 94 91 92 01/07/21 20:00 01/07/21 20:25 01/08/21 00:00 Temperature 98.6 F 97.2 F L Pulse Rate 83 83 Respiratory Rate 18 18 Blood Pressure 140/82 140/82 Pulse Oximetry 92 92 90 01/08/21 00:10 01/08/21 04:00 01/08/21 08:00 Temperature 97.6 F 97.2 F L Pulse Rate 74 103 H Respiratory Rate 20 20 Blood Pressure 141/93 H 143/86 H 115/85 Pulse Oximetry 91 91 01/08/21 08:47 Temperature Pulse Rate Respiratory Rate Blood Pressure Pulse Oximetry 92 Intake/Output Intake/Output: Intake & Output 01/05/21 01/06/21
[2021-01-08] MEDS: SACCHAROMYCES BOULARDII 250 MG CAPSULE PO ×2 (10:27→17:24)
[2021-01-08] MEDS: guaiFENesin 12 HR 600 MG TABCR PO ×2 (10:27→22:09)
[2021-01-08] MEDS: ASCORBIC ACID 500 MG TABLET 1000 MG PO ×2 (10:27→17:22)
[2021-01-08] MEDS: DEXAMETHASONE 2 MG TABLET 6 MG PO ×2 (10:28→17:23)
[2021-01-08] MEDS: CHOLECALCIFEROL 1,000 UNITS TABLET 2000 UNITS BY MOUTH (10:28)
[2021-01-08] MEDS: BARICITINIB 2 MG TABLET 4 MG PO (10:28)
[2021-01-08] MEDS: VITAMIN B COMPLEX CAPSULE 1 CAP BY MOUTH (10:28)
[2021-01-08] MEDS: PANTOPRAZOLE 40 MG TABLET PO ×2 (10:29→22:09)
[2021-01-08] MEDS: METOPROLOL SUCCINATE EXT REL 12.5 MG TABCR 6.25 MG PO (10:29)
[2021-01-08] MEDS: ZINC SULFATE 220 MG CAPSULE PO ×2 (10:29→17:24)
[2021-01-08] MEDS: ENOXAPARIN 40 MG/0.4 ML SYRINGE SUB-Q (10:29)
[2021-01-08 10:38] LABS: Prothrombin Time 12.9 Seconds (11.1-14.7)
[2021-01-08 18:18] LABS: Alanine Aminotransferase 63 U/L (4-35)
[2021-01-08] MEDS: REMDESIVIR 100 MG/NS 250 ML 100 MG/250 ML BAG 250 MG IVPB (22:08)
[2021-01-09] VITALS (12 sets, daily range): BP systolic 101–150; BP diastolic 70–91; PULSE 70–120; RESP 18–24; TEMP 36.1–37.3; O2SAT 87–95
[2021-01-09] MEDS: LEVALBUTEROL HFA (*SP) 15 GM INHALER 2 PUFF INHALATION ×4 (03:50→22:07)
[2021-01-09 06:26] LABS: Hematocrit 39.7 % (37.0-47.0); Hemoglobin 13.4 g/dL (12.0-15.0); Mean Corpuscular HGB Conc 33.8 g/dl (32-36); Mean Corpuscular Hemoglobin 28.8 pg (26-34); Mean Corpuscular Volume 85.2 fl (80-100); Mean Platelet Volume 10.1 fl (7.4-10.4); Platelet Count Result 493 k/mm3 (150-375); Red Blood Count 4.66 M/mm3 (4.2-5.4); Red Cell Distribution Width 12.8 % (11.5-14.5)
[2021-01-09 06:35] LABS: INR 1.1; Prothrombin Time 13.9 Seconds (11.1-14.7)
[2021-01-09 06:48] LABS: Alanine Aminotransferase 55 U/L (4-35); Albumin Level 3.3 g/dL (3.5-5.1); Alkaline Phosphatase 90 U/L (38-126); Anion Gap 7 mmol/L (8-16); Aspartate Amino Transferase 27 U/L (14-36); Blood Urea Nitrogen 12 mg/dL (7-17); Calcium 8.9 mg/dL (8.4-10.2); Carbon Dioxide 28 mmol/L (22-30); Chloride 98 mmol/L (98-107); Estimated CRCL calculation 91 ml/min; Estimated Glomerular Filt Rate > 60; Glucose 124 mg/dL (65-110); Magnesium 2.2 mg/dL (1.6-2.3); Phosphorus 4.2 mg/dL (2.5-4.5); Potassium 4.1 mmol/L (3.4-5.0); Sodium 133 mmol/L (137-145)
[2021-01-09 08:48] LABS: Band Neutrophils Percent 1 % (0-6); Lymphocytes Absolute Manual 0.63 K/mm3 (1.1-4.5); Monocytes Absolute Manual 1.68 K/mm3 (0.1-0.90); Monocytes Percent Manual 8 % (3-9); Neutrophils Absolute Manual 18.69 K/mm3 (1.7-7.2); Neutrophils Percent Manual 88 % (46-73); Total Cells Counted 100
[2021-01-09 08:49] LABS: Platelet Estimate Adequate (Adequate)
[2021-01-09] MEDS: ZINC SULFATE 220 MG CAPSULE PO ×2 (08:54→17:47)
[2021-01-09] MEDS: DEXAMETHASONE 2 MG TABLET 6 MG PO ×2 (08:55→17:47)
[2021-01-09] MEDS: METOPROLOL SUCCINATE EXT REL 12.5 MG TABCR 6.25 MG PO (08:55)
[2021-01-09] MEDS: SACCHAROMYCES BOULARDII 250 MG CAPSULE PO ×2 (08:55→17:47)
[2021-01-09] MEDS: VITAMIN B COMPLEX CAPSULE 1 CAP BY MOUTH (08:55)
[2021-01-09] MEDS: PANTOPRAZOLE 40 MG TABLET PO ×2 (08:57→20:50)
[2021-01-09] MEDS: ASCORBIC ACID 500 MG TABLET 1000 MG PO ×2 (08:57→17:47)
[2021-01-09] MEDS: BARICITINIB 2 MG TABLET 4 MG PO (08:57)
[2021-01-09] MEDS: CHOLECALCIFEROL 1,000 UNITS TABLET 2000 UNITS BY MOUTH (08:57)
[2021-01-09] MEDS: ENOXAPARIN 40 MG/0.4 ML SYRINGE SUB-Q (08:58)
[2021-01-09] MEDS: guaiFENesin 12 HR 600 MG TABCR PO ×2 (08:58→20:50)
[2021-01-09] MEDS: FLUTICASONE PROPIONATE 0.05% NA SPR 16 GM BTL (*BKC) 1 SPRAY NASAL ×2 (08:59→20:50)
--- NOTE | 2021-01-09 13:41 | P.PNIM_ITS ---
Progress Note: A&P Assessment and Plan (1) Hypoxia: Code(s): R09.02 - Hypoxemia Status: Acute Assessment and Plan: * Secondary to COVID pneumonia. * CTA of the chest showed no central pulmonary embolus 12/30/20 * Times of tachycardia noted on the tele monitor review, better with addition of metoprolol 6.25 * No chest pain noted D.Dimer was normal 0.42 01/03/21 * Currently on 10 L high flow canula * Wean oxygen to maintain saturation greater than 90% * Decadron will increase to BID and Lovenox * Continue remedesivir, baricitinib, Decadron * Lasix 40mg IV once * Stable on high flow cannula ok to move out of IMU (2) Pneumonia due to COVID-19 virus: Code(s): U07.1 - COVID-19; J12.82 - Pneumonia due to coronavirus disease 2018 Status: Acute Assessment and Plan: * did not receive a COVID vaccination. * prophylactically on hydroxychloroquine, zinc, and vitamin-C and D at home. * dexamethasone 6mg PO BID * baricitinib 4mg PO daily started 01/02/21 * Convalescent plasma 01/03/21 * Vit B,C,D, and zinc are all on board * Continue airborne, contact, and droplet isolation. * Reporting diarrhea, Florastor and banatrol added * Flonase for nasal congestion (3) Dehydration: Code(s): E86.0 - Dehydration Status: Acute Assessment and Plan: * avoid over-hydration. * Encouraged p.o. intake. * no noted vomiting, diarrhea present * 40mg IV lasix (4) Hyponatremia: Code(s): E87.1 - Hypo-osmolality and hyponatremia Status: Acute Assessment and Plan: * Sodium 135 today * Could be hypervolemia, * Iv lasix 40mg * trend lab (5) Gastroesophageal reflux disease: Code(s): K21.9 - Gastro-esophageal reflux disease without esophagitis Status: Acute Assessment and Plan: * Continue PPI. (6) Transaminitis: Code(s): R74.01 - Elevation of levels of liver transaminase levels Status: Acute Assessment and Plan: * Liver enzymes elevated 53/105 staying stable * Have been elevated since admission probably secondary to COVID * will continue to trend * Hepatitis panel negative Additional Plan Covid pneumonia with hypoxic respiratory failure, requiring nonrebreather to maintain O2 Sats Continue Dexamethasone until 01/09, Remdesivir until 01/10; Baricitinib until 01/15 Wean O2 as tolerated, guarded prognosis at this time Time Spent With Patient Time with patient: less than 15 minutes Subjective Date/time seen: 01/09/21 13:41 no acute complaints continuing nonrebreather for resp support Review of Systems Review of Systems: All systems reviewed & are unremarkable except as noted in HPI and below Exam Const: General: no acute distress Neck: Neck: no JVD Resp: Effort & Inspection: normal respiratory effort Auscultation: clear to auscultation bilaterally Cardio: Rate: regular rate Rhythm: regular rhythm GI: GI Palp: Yes Soft to palpation and No Tenderness to palpation present (GI) Objective Data Vital Signs Vital Signs: Vital Signs - 24 hr 01/08/21 16:00 01/08/21 17:33 01/08/21 18:53 Temperature 97.5 F L Pulse Rate 99 Respiratory Rate 20 Blood Pressure 119/80 126/82 Pulse Oximetry 91 93 01/08/21 18:54 01/08/21
--- NOTE | 2021-01-09 13:41 | PM.IMPN ---
Progress Note: A&P Assessment and Plan (1) Hypoxia: Code(s): R09.02 - Hypoxemia Status: Acute Assessment and Plan: Secondary to COVID pneumonia. CTA of the chest showed no central pulmonary embolus 12/30/20 Times of tachycardia noted on the tele monitor review, better with addition of metoprolol 6.25 No chest pain noted D.Dimer was normal 0.42 01/03/21 Currently on 10 L high flow canula Wean oxygen to maintain saturation greater than 90% Decadron will increase to BID and Lovenox Continue remedesivir, baricitinib, Decadron Lasix 40mg IV once Stable on high flow cannula ok to move out of IMU (2) Pneumonia due to COVID-19 virus: Code(s): U07.1 - COVID-19; J12.82 - Pneumonia due to coronavirus disease 2018 Status: Acute Assessment and Plan: did not receive a COVID vaccination. prophylactically on hydroxychloroquine, zinc, and vitamin-C and D at home. dexamethasone 6mg PO BID baricitinib 4mg PO daily started 01/02/21 Convalescent plasma 01/03/21 Vit B,C,D, and zinc are all on board Continue airborne, contact, and droplet isolation. Reporting diarrhea, Florastor and banatrol added Flonase for nasal congestion (3) Dehydration: Code(s): E86.0 - Dehydration Status: Acute Assessment and Plan: avoid over-hydration. Encouraged p.o. intake. no noted vomiting, diarrhea present 40mg IV lasix (4) Hyponatremia: Code(s): E87.1 - Hypo-osmolality and hyponatremia Status: Acute Assessment and Plan: Sodium 135 today Could be hypervolemia, Iv lasix 40mg trend lab (5) Gastroesophageal reflux disease: Code(s): K21.9 - Gastro-esophageal reflux disease without esophagitis Status: Acute Assessment and Plan: Continue PPI. (6) Transaminitis: Code(s): R74.01 - Elevation of levels of liver transaminase levels Status: Acute Assessment and Plan: Liver enzymes elevated 53/105 staying stable Have been elevated since admission probably secondary to COVID will continue to trend Hepatitis panel negative Additional Plan Covid pneumonia with hypoxic respiratory failure, requiring nonrebreather to maintain O2 Sats Continue Dexamethasone until 01/09, Remdesivir until 01/10; Baricitinib until 01/15 Wean O2 as tolerated, guarded prognosis at this time Time Spent With Patient Time with patient: less than 15 minutes Subjective Date/time seen: 01/09/21 13:41 no acute complaints continuing nonrebreather for resp support Review of Systems Review of Systems: All systems reviewed & are unremarkable except as noted in HPI and below Exam Const: General: no acute distress Neck: Neck: no JVD Resp: Effort & Inspection: normal respiratory effort Auscultation: clear to auscultation bilaterally Cardio: Rate: regular rate Rhythm: regular rhythm GI: GI Palp: Yes Soft to palpation and No Tenderness to palpation present (GI) Objective Data Vital Signs Vital Signs: Vital Signs - 24 hr 01/08/21 16:00 01/08/21 17:33 01/08/21 18:53 Temperature 97.5 F L Pulse Rate 99 Respiratory Rate 20 Blood Pressure 119/80 126/82 Pulse Oximetry 91 93 01/08/21 18:54 01/08/21 20:00 01/08/21 21:59 Temperature 98.2 F Pulse Rate 112 H 99 Respiratory Rate 18 Blood Pressure 114/72 113/76 Pulse Oximetry 95 93 01/09/21 00:00 01/09/21 04:00 01/09/21 08:00 Temperature 97.8 F 97.0 F L 97.8 F Pulse Rate 104 H 93 92 Respiratory Rate 18 20 22 H Blood Pressure 106/70 124/78 101/73 Pulse Oximetry 90 95 91 01/09/21 08:24 01/09/21 08:55 01/09/21 10:02 Temperature Pulse Rate 97 72 Respiratory Rate Blood Pressure Pulse Oximetry 90 01/09/21 12:00 Temperature 98.7 F Pulse Rate 119 H Respiratory Rate 24 H Blood Pressure 137/81 Pulse Oximetry 91 Intake/Output Intake/Output: Intake & Output 01/06/21 01/07/21 01/08/21 01/09/21 23:5
[2021-01-09 16:47] LABS: Alanine Aminotransferase 50 U/L (4-35)
[2021-01-09] MEDS: REMDESIVIR 100 MG/NS 250 ML 100 MG/250 ML BAG 250 MG IVPB (20:49)
[2021-01-09] MEDS: MELATONIN 5 MG TABLET PO (20:50)
[2021-01-10] VITALS (13 sets, daily range): BP systolic 102–136; BP diastolic 47–91; PULSE 88–116; RESP 16–22; TEMP 36.4–37.2; O2SAT 5–95
[2021-01-10] MEDS: LEVALBUTEROL HFA (*SP) 15 GM INHALER 2 PUFF INHALATION ×4 (02:14→21:48)
[2021-01-10 07:42] LABS: Alanine Aminotransferase 46 U/L (4-35); Albumin Level 3.5 g/dL (3.5-5.1); Alkaline Phosphatase 90 U/L (38-126); Anion Gap 8 mmol/L (8-16); Aspartate Amino Transferase 26 U/L (14-36); Bilirubin,Total 0.9 mg/dL (0.2-1.3); Blood Urea Nitrogen 13 mg/dL (7-17); Carbon Dioxide 27 mmol/L (22-30); Chloride 99 mmol/L (98-107); Estimated CRCL calculation 91 ml/min; Estimated Glomerular Filt Rate > 60; Glucose 120 mg/dL (65-110); Magnesium 2.1 mg/dL (1.6-2.3); Phosphorus 4.5 mg/dL (2.5-4.5); Potassium 3.9 mmol/L (3.4-5.0); Sodium 134 mmol/L (137-145)
[2021-01-10 07:46] LABS: INR 1.1; Prothrombin Time 14.4 Seconds (11.1-14.7)
[2021-01-10 07:50] LABS: Basophils Absolute Auto 0.1 K/mm3 (0.0-0.1); Basophils Percent Auto 0.3 % (0.2-1.2); Hematocrit 39.5 % (37.0-47.0); Hemoglobin 13.2 g/dL (12.0-15.0); Immature Granulocyte Absolute 0.54 K/mm3 (0.00-0.031); Immature Granulocyte Percent A 1.9 % (0-0.5); Lymphocytes Absolute Auto 0.73 K/mm3 (0.9-3.2); Lymphocytes Percent Auto 2.6 % (18.3-44.2); Mean Corpuscular HGB Conc 33.4 g/dl (32-36); Mean Corpuscular Hemoglobin 28.1 pg (26-34); Mean Platelet Volume 10.5 fl (7.4-10.4); Monocytes Absolute Auto 1.7 K/mm3 (0.1-0.6); Neutrophils Absolute Auto 24.9 K/mm3 (1.3-6.7); Neutrophils Percent Auto 89.2 % (45.5-73.1); Platelet Count Result 420 k/mm3 (150-375); Red Cell Distribution Width 12.8 % (11.5-14.5); White Blood Count 27.9 K/mm3 (4.5-10.0)
[2021-01-10] MEDS: ENOXAPARIN 40 MG/0.4 ML SYRINGE SUB-Q (08:22)
[2021-01-10] MEDS: BARICITINIB 2 MG TABLET 4 MG PO (08:22)
[2021-01-10] MEDS: PANTOPRAZOLE 40 MG TABLET PO ×2 (08:23→20:37)
[2021-01-10] MEDS: SACCHAROMYCES BOULARDII 250 MG CAPSULE PO ×2 (08:23→18:50)
[2021-01-10] MEDS: CHOLECALCIFEROL 1,000 UNITS TABLET 2000 UNITS BY MOUTH (08:23)
[2021-01-10] MEDS: ASCORBIC ACID 500 MG TABLET 1000 MG PO ×2 (08:23→18:49)
[2021-01-10] MEDS: METOPROLOL SUCCINATE EXT REL 12.5 MG TABCR 6.25 MG PO (08:23)
[2021-01-10] MEDS: VITAMIN B COMPLEX CAPSULE 1 CAP BY MOUTH (08:23)
[2021-01-10] MEDS: guaiFENesin 12 HR 600 MG TABCR PO ×2 (08:23→20:37)
[2021-01-10] MEDS: ZINC SULFATE 220 MG CAPSULE PO ×2 (08:24→18:49)
--- NOTE | 2021-01-10 09:20 | P.PNIM_ITS ---
Progress Note: A&P Assessment and Plan (1) Hypoxia: Code(s): R09.02 - Hypoxemia Status: Acute Assessment and Plan: * Secondary to COVID pneumonia. * CTA of the chest showed no central pulmonary embolus 12/30/20 * Times of tachycardia noted on the tele monitor review, better with addition of metoprolol 6.25 * No chest pain noted D.Dimer was normal 0.42 01/03/21 * Currently on 10 L high flow canula * Wean oxygen to maintain saturation greater than 90% * Lasix 40mg IV once (2) Pneumonia due to COVID-19 virus: Code(s): U07.1 - COVID-19; J12.82 - Pneumonia due to coronavirus disease 2019 Status: Acute Assessment and Plan: * did not receive a COVID vaccination. * prophylactically on hydroxychloroquine, zinc, and vitamin-C and D at home. * dexamethasone 6mg PO BID * baricitinib 4mg PO daily started 01/02/21 * Convalescent plasma 01/03/21 * Vit B,C,D, and zinc are all on board * Continue airborne, contact, and droplet isolation. * Reporting diarrhea, Florastor and banatrol added * Flonase for nasal congestion (3) Dehydration: Code(s): E86.0 - Dehydration Status: Acute Assessment and Plan: * avoid over-hydration. * Encouraged p.o. intake. * no noted vomiting, diarrhea present * 40mg IV lasix (4) Hyponatremia: Code(s): E87.1 - Hypo-osmolality and hyponatremia Status: Acute Assessment and Plan: * Sodium 135 today * Could be hypervolemia, * Iv lasix 40mg * trend lab (5) Gastroesophageal reflux disease: Code(s): K21.9 - Gastro-esophageal reflux disease without esophagitis Status: Acute Assessment and Plan: * Continue PPI. (6) Transaminitis: Code(s): R74.01 - Elevation of levels of liver transaminase levels Status: Acute Assessment and Plan: * Liver enzymes elevated 53/105 staying stable * Have been elevated since admission probably secondary to COVID * will continue to trend * Hepatitis panel negative Additional Plan long conversation yesterday with we are not going to give patient plaquenil and ivermectin as potential risk outweighs benefit, and this is in keeping with IDSA recommendations WBC count up to 28 today, from 21 yesterday - obtain BC UA/UC CXR -no fevers documented or subjective -denies other infectious symptoms at this time -currently on steroids -will trend, if continuing to go up, may need ID consultation Time Spent With Patient Time with patient: less than 15 minutes Subjective Date/time seen: 01/10/21 09:20 resting comfrotably still needs nonrebreather Review of Systems Review of Systems: All systems reviewed & are unremarkable except as noted in HPI and below Exam Const: General: no acute distress Neck: Neck: no JVD Resp: Effort & Inspection: normal respiratory effort Auscultation: clear to auscultation bilaterally Cardio: Rate: regular rate Rhythm: regular rhythm GI: GI Palp: Yes Soft to palpation and No Tenderness to palpation present (GI) Objective Data Vital Signs Vital Signs: Vital Signs - 24 hr 01/09/21 10:02 01/09/21 12:00 01/09/21 15:32 Temperature 98.7 F 97.8 F Pulse Rate 110 H 97 Respiratory Rate 24 H 20 Blood Pressure 137/81 150/82 H Pulse Oximetry 90 91 93
--- NOTE | 2021-01-10 09:20 | PM.IMPN ---
Progress Note: A&P Assessment and Plan (1) Hypoxia: Code(s): R09.02 - Hypoxemia Status: Acute Assessment and Plan: Secondary to COVID pneumonia. CTA of the chest showed no central pulmonary embolus 12/30/20 Times of tachycardia noted on the tele monitor review, better with addition of metoprolol 6.25 No chest pain noted D.Dimer was normal 0.42 01/03/21 Currently on 10 L high flow canula Wean oxygen to maintain saturation greater than 90% Lasix 40mg IV once (2) Pneumonia due to COVID-19 virus: Code(s): U07.1 - COVID-19; J12.82 - Pneumonia due to coronavirus disease 2019 Status: Acute Assessment and Plan: did not receive a COVID vaccination. prophylactically on hydroxychloroquine, zinc, and vitamin-C and D at home. dexamethasone 6mg PO BID baricitinib 4mg PO daily started 01/02/21 Convalescent plasma 01/03/21 Vit B,C,D, and zinc are all on board Continue airborne, contact, and droplet isolation. Reporting diarrhea, Florastor and banatrol added Flonase for nasal congestion (3) Dehydration: Code(s): E86.0 - Dehydration Status: Acute Assessment and Plan: avoid over-hydration. Encouraged p.o. intake. no noted vomiting, diarrhea present 40mg IV lasix (4) Hyponatremia: Code(s): E87.1 - Hypo-osmolality and hyponatremia Status: Acute Assessment and Plan: Sodium 135 today Could be hypervolemia, Iv lasix 40mg trend lab (5) Gastroesophageal reflux disease: Code(s): K21.9 - Gastro-esophageal reflux disease without esophagitis Status: Acute Assessment and Plan: Continue PPI. (6) Transaminitis: Code(s): R74.01 - Elevation of levels of liver transaminase levels Status: Acute Assessment and Plan: Liver enzymes elevated 53/105 staying stable Have been elevated since admission probably secondary to COVID will continue to trend Hepatitis panel negative Additional Plan long conversation yesterday with we are not going to give patient plaquenil and ivermectin as potential risk outweighs benefit, and this is in keeping with IDSA recommendations WBC count up to 28 today, from 21 yesterday - obtain BC UA/UC CXR -no fevers documented or subjective -denies other infectious symptoms at this time -currently on steroids -will trend, if continuing to go up, may need ID consultation Time Spent With Patient Time with patient: less than 15 minutes Subjective Date/time seen: 01/10/21 09:20 resting comfrotably still needs nonrebreather Review of Systems Review of Systems: All systems reviewed & are unremarkable except as noted in HPI and below Exam Const: General: no acute distress Neck: Neck: no JVD Resp: Effort & Inspection: normal respiratory effort Auscultation: clear to auscultation bilaterally Cardio: Rate: regular rate Rhythm: regular rhythm GI: GI Palp: Yes Soft to palpation and No Tenderness to palpation present (GI) Objective Data Vital Signs Vital Signs: Vital Signs - 24 hr 01/09/21 10:02 01/09/21 12:00 01/09/21 15:32 Temperature 98.7 F 97.8 F Pulse Rate 110 H 97 Respiratory Rate 24 H 20 Blood Pressure 137/81 150/82 H Pulse Oximetry 90 91 93 01/09/21 16:00 01/09/21 20:00 01/09/21 20:01 Temperature 99.0 F 99.1 F Pulse Rate 120 H 105 H 119 H Respiratory Rate 22 H 22 H Blood Pressure 119/74 123/81 Pulse Oximetry 92 88 L 01/09/21 20:02 01/10/21 00:00 01/10/21 01:48 Temperature 99.2 F 98.7 F Pulse Rate 118 H 106 H 102 H Respiratory Rate 22 H 22 H Blood Pressure 143/91 H 125/83 Pulse Oximetry 87 L 90 01/10/21 04:00 01/10/21 06:40 01/10/21 08:00 Temperature 99.0 F 97.6 F Pulse Rate 95 110 H Respiratory Rate 22 H 20 Blood Pressure 130/78 134/91 H Pulse Oximetry 94 90 95 01/10/21 08:23 Temperature Pulse Rate 100 Respiratory Rate Blood Pressure Pulse Oximetry In
[2021-01-10] MEDS: ALPRAZolam (*CRX) 0.125 MG TABLET PO ×2 (10:19→20:38)
[2021-01-10 13:09] LABS: Add Urine Microscopic? YES; Amorphous Sediment Urine Moderate; Appearance Urine Cloudy (Clear); Bacteria Urine Trace /hpf; Bilirubin Urine Negative (Negative); Blood Urine Negative (Negative); Color Urine Yellow (Yellow); Glucose Urine UA Negative (Negative); Ketones Urine Negative (Negative); Leukocyte Esterase Ur Negative LEU/UL (NEGATIVE); Mucus Urine Rare /lpf; Nitrate Urine Negative (Negative); Protein Urine 1+ mg/dL (Negative); RBC Urine 0-2 /hpf (0-2); Specific Grav Ur 1.021 (1.001-1.035); Urobilinogen Urine Negative mg/dL (<2.0); WBC Urine 0-3 /hpf (0-3)
[2021-01-10] MEDS: FLUTICASONE PROPIONATE 0.05% NA SPR 16 GM BTL (*BKC) 1 SPRAY NASAL ×2 (13:48→20:39)
[2021-01-10 18:23] LABS: Alanine Aminotransferase 40 U/L (4-35)
[2021-01-10] MEDS: REMDESIVIR 100 MG/NS 250 ML 100 MG/250 ML BAG 250 MG IVPB (23:29)
[2021-01-11] VITALS (23 sets, daily range): BP systolic 110–151; BP diastolic 56–91; PULSE 100–142; RESP 16–26; TEMP 36.2–37.8; O2SAT 85–99
[2021-01-11] MEDS: LEVALBUTEROL HFA (*SP) 15 GM INHALER 2 PUFF INHALATION ×4 (02:57→20:08)
[2021-01-11] MEDS: METOPROLOL TARTRATE 25 MG TABLET PO (03:22)
[2021-01-11] MEDS: ALPRAZolam (*CRX) 0.125 MG TABLET PO ×3 (04:36→22:22)
[2021-01-11 06:39] LABS: Basophils Absolute Auto 0.1 K/mm3 (0.0-0.1); Basophils Percent Auto 0.3 % (0.2-1.2); Eosinophils Absolute Auto 0.3 K/mm3 (0-0.3); Eosinophils Percent Auto 1.2 % (0-4.4); Hematocrit 38.1 % (37.0-47.0); Hemoglobin 12.9 g/dL (12.0-15.0); Immature Granulocyte Absolute 0.49 K/mm3 (0.00-0.031); Immature Granulocyte Percent A 1.8 % (0-0.5); Lymphocytes Absolute Auto 0.94 K/mm3 (0.9-3.2); Lymphocytes Percent Auto 3.5 % (18.3-44.2); Mean Corpuscular HGB Conc 33.9 g/dl (32-36); Mean Corpuscular Hemoglobin 28.1 pg (26-34); Mean Platelet Volume 10.3 fl (7.4-10.4); Monocytes Percent Auto 3.6 % (2.6-8.5); Neutrophils Absolute Auto 24.2 K/mm3 (1.3-6.7); Neutrophils Percent Auto 89.6 % (45.5-73.1); Platelet Count Result 561 k/mm3 (150-375); Red Blood Count 4.59 M/mm3 (4.2-5.4)
[2021-01-11 06:48] LABS: Alanine Aminotransferase 37 U/L (4-35); Albumin Level 3.2 g/dL (3.5-5.1); Alkaline Phosphatase 90 U/L (38-126); Anion Gap 8 mmol/L (8-16); Aspartate Amino Transferase 37 U/L (14-36); Bilirubin,Total 1.3 mg/dL (0.2-1.3); Blood Urea Nitrogen 13 mg/dL (7-17); Calcium 8.5 mg/dL (8.4-10.2); Carbon Dioxide 27 mmol/L (22-30); Chloride 96 mmol/L (98-107); Estimated CRCL calculation 91 ml/min; Estimated Glomerular Filt Rate > 60; Glucose 112 mg/dL (65-110); Phosphorus 3.1 mg/dL (2.5-4.5); Sodium 131 mmol/L (137-145)
[2021-01-11] MEDS: CHOLECALCIFEROL 1,000 UNITS TABLET 2000 UNITS BY MOUTH (08:53)
[2021-01-11] MEDS: ASCORBIC ACID 500 MG TABLET 1000 MG PO ×2 (08:53→17:39)
[2021-01-11] MEDS: VITAMIN B COMPLEX CAPSULE 1 CAP BY MOUTH (08:53)
[2021-01-11] MEDS: guaiFENesin 12 HR 600 MG TABCR PO ×2 (08:53→20:11)
[2021-01-11] MEDS: SACCHAROMYCES BOULARDII 250 MG CAPSULE PO ×2 (08:53→17:40)
[2021-01-11] MEDS: ENOXAPARIN 40 MG/0.4 ML SYRINGE SUB-Q (08:53)
[2021-01-11] MEDS: METOPROLOL SUCCINATE EXT REL 12.5 MG TABCR 6.25 MG PO (08:54)
[2021-01-11] MEDS: ZINC SULFATE 220 MG CAPSULE PO ×2 (08:54→17:39)
[2021-01-11] MEDS: PANTOPRAZOLE 40 MG TABLET PO ×2 (08:54→20:11)
[2021-01-11] MEDS: BARICITINIB 2 MG TABLET 4 MG PO (09:01)
[2021-01-11] MEDS: FLUTICASONE PROPIONATE 0.05% NA SPR 16 GM BTL (*BKC) 1 SPRAY NASAL (09:02)
--- NOTE | 2021-01-11 10:46 | P.PNIM_ITS ---
Progress Note: A&P Assessment and Plan (1) Hypoxia: Code(s): R09.02 - Hypoxemia Status: Acute Assessment and Plan: * Secondary to COVID pneumonia. * CTA of the chest showed no central pulmonary embolus 12/30/20 * Times of tachycardia noted on the tele monitor review, better with addition of metoprolol 6.25 * No chest pain noted D.Dimer was normal 0.42 01/03/21 * Currently on 10 L high flow canula * Wean oxygen to maintain saturation greater than 90% * Lasix 40mg IV once (2) Pneumonia due to COVID-19 virus: Code(s): U07.1 - COVID-19; J12.82 - Pneumonia due to coronavirus disease 2018 Status: Acute Assessment and Plan: * did not receive a COVID vaccination. * prophylactically on hydroxychloroquine, zinc, and vitamin-C and D at home. * dexamethasone 6mg PO BID * baricitinib 4mg PO daily started 01/02/21 * Convalescent plasma 01/03/21 * Vit B,C,D, and zinc are all on board * Continue airborne, contact, and droplet isolation. * Reporting diarrhea, Florastor and banatrol added * Flonase for nasal congestion (3) Dehydration: Code(s): E86.0 - Dehydration Status: Acute Assessment and Plan: * avoid over-hydration. * Encouraged p.o. intake. * no noted vomiting, diarrhea present * 40mg IV lasix (4) Hyponatremia: Code(s): E87.1 - Hypo-osmolality and hyponatremia Status: Acute Assessment and Plan: * Sodium 135 today * Could be hypervolemia, * Iv lasix 40mg * trend lab (5) Gastroesophageal reflux disease: Code(s): K21.9 - Gastro-esophageal reflux disease without esophagitis Status: Acute Assessment and Plan: * Continue PPI. (6) Transaminitis: Code(s): R74.01 - Elevation of levels of liver transaminase levels Status: Acute Assessment and Plan: * Liver enzymes elevated 53/105 staying stable * Have been elevated since admission probably secondary to COVID * will continue to trend * Hepatitis panel negative Additional Plan Able to wean to 6L HFNC, continue as tolerated Expect leukocytosis related to steroids - no interval change in cxr, blood & urine cultures negative dropped off large envelope filled with recommendations to use plaquenil and ivermectin - which we already agreed we were not going to use. will try to discuss this again over the phone later today if we have time. Apparently he has spoken to nurses and says he and his are considering taking patient to another facility. Baricitinib until 01/15 Remdisivir & steroids have been completed Subjective Date/time seen: 01/11/21 10:46 breathing is improving no acute complaints Review of Systems Review of Systems: All systems reviewed & are unremarkable except as noted in HPI and below Exam Const: General: no acute distress Neck: Neck: no JVD Resp: Effort & Inspection: normal respiratory effort Auscultation: clear to auscultation bilaterally Cardio: Rate: regular rate Rhythm: regular rhythm GI: GI Palp: Yes Soft to palpation and No Tenderness to palpation present (GI) Objective Data Vital Signs Vital Signs: Vital Signs - 24 hr 01/10/21 12:00 01/10/21 16:00 01/10/21 20:00 Temperature 98.4 F 98.0 F 98.5 F Pulse Rate 100 110 H 109 H Respiratory Rate 20 20 16
--- NOTE | 2021-01-11 10:46 | PM.IMPN ---
Progress Note: A&P Assessment and Plan (1) Hypoxia: Code(s): R09.02 - Hypoxemia Status: Acute Assessment and Plan: Secondary to COVID pneumonia. CTA of the chest showed no central pulmonary embolus 12/30/20 Times of tachycardia noted on the tele monitor review, better with addition of metoprolol 6.25 No chest pain noted D.Dimer was normal 0.42 01/03/21 Currently on 10 L high flow canula Wean oxygen to maintain saturation greater than 90% Lasix 40mg IV once (2) Pneumonia due to COVID-19 virus: Code(s): U07.1 - COVID-19; J12.82 - Pneumonia due to coronavirus disease 2019 Status: Acute Assessment and Plan: did not receive a COVID vaccination. prophylactically on hydroxychloroquine, zinc, and vitamin-C and D at home. dexamethasone 6mg PO BID baricitinib 4mg PO daily started 01/02/21 Convalescent plasma 01/03/21 Vit B,C,D, and zinc are all on board Continue airborne, contact, and droplet isolation. Reporting diarrhea, Florastor and banatrol added Flonase for nasal congestion (3) Dehydration: Code(s): E86.0 - Dehydration Status: Acute Assessment and Plan: avoid over-hydration. Encouraged p.o. intake. no noted vomiting, diarrhea present 40mg IV lasix (4) Hyponatremia: Code(s): E87.1 - Hypo-osmolality and hyponatremia Status: Acute Assessment and Plan: Sodium 135 today Could be hypervolemia, Iv lasix 40mg trend lab (5) Gastroesophageal reflux disease: Code(s): K21.9 - Gastro-esophageal reflux disease without esophagitis Status: Acute Assessment and Plan: Continue PPI. (6) Transaminitis: Code(s): R74.01 - Elevation of levels of liver transaminase levels Status: Acute Assessment and Plan: Liver enzymes elevated 53/105 staying stable Have been elevated since admission probably secondary to COVID will continue to trend Hepatitis panel negative Additional Plan Able to wean to 6L HFNC, continue as tolerated Expect leukocytosis related to steroids - no interval change in cxr, blood & urine cultures negative dropped off large envelope filled with recommendations to use plaquenil and ivermectin - which we already agreed we were not going to use. will try to discuss this again over the phone later today if we have time. Apparently he has spoken to nurses and says he and his are considering taking patient to another facility. Baricitinib until 01/15 Remdisivir & steroids have been completed Subjective Date/time seen: 01/11/21 10:46 breathing is improving no acute complaints Review of Systems Review of Systems: All systems reviewed & are unremarkable except as noted in HPI and below Exam Const: General: no acute distress Neck: Neck: no JVD Resp: Effort & Inspection: normal respiratory effort Auscultation: clear to auscultation bilaterally Cardio: Rate: regular rate Rhythm: regular rhythm GI: GI Palp: Yes Soft to palpation and No Tenderness to palpation present (GI) Objective Data Vital Signs Vital Signs: Vital Signs - 24 hr 01/10/21 12:00 01/10/21 16:00 01/10/21 20:00 Temperature 98.4 F 98.0 F 98.5 F Pulse Rate 100 110 H 109 H Respiratory Rate 20 20 16 Blood Pressure 108/80 136/71 127/47 L Pulse Oximetry 94 92 91 01/10/21 20:05 01/10/21 20:10 01/10/21 21:48 Temperature Pulse Rate 112 H 116 H 112 H Respiratory Rate Blood Pressure 113/66 102/61 Pulse Oximetry 89 L 01/11/21 00:00 01/11/21 01:24 01/11/21 02:57 Temperature 99.2 F Pulse Rate 120 H 120 H Respiratory Rate 20 26 H Blood Pressure 110/61 Pulse Oximetry 99 94 96 01/11/21 03:22 01/11/21 04:00 01/11/21 07:54 Temperature 97.1 F L 99.6 F Pulse Rate 142 H 108 H 105 H Respiratory Rate 22 H 22 H Blood Pressure 125/56 L 115/65 Pulse Oximetry 97 93 01/11/21 08:00 01/11/21 08:53 01/11/21 08:54 Temperatu
[2021-01-11 16:50] LABS: Alanine Aminotransferase 34 U/L (4-35)
--- NOTE | 2021-01-11 22:00 | PC.NURSE ---
Updated Richard, Patient's , on transfer down to IMU and increase need for oxygen. Discussed oxygen, and medication patient is currently taking. is extremely agitated and using foul language with RN stating that he has a treatment plan and the doctors arent doing what he wants , he also stated if his dies he will [facility] the hospital. He requested to speak to her doctor, the night hospitalist was called and stated she would not change the treatment plan as of now. supervisor steel division was updated. I informed the that he should call back in the morning to talk to her doctor.
--- NOTE | 2021-01-11 22:28 | PC.NURSE ---
patient was transferred to IMU room 212 at approx 2030. All belongings were transferred with the patient.
--- NOTE | 2021-01-11 22:31 | PC.NURSE ---
patients called this evening at 2200 to discuss patient being moved to IMU because of Airvo requirements. The was very angry about the course of treatment. The nurse taking the call explained that he would need to speak with the nurse treating her on the IMU floor. The became increasingly angry stating He would kaitlyn the hospital for not treating his per his recommendations and then agreed to be transferred to the IMU nurse caring for his .
--- NOTE | 2021-01-11 23:00 | PC.NURSE ---
Patient's daughter Regina Florian called and was updated on her mother. Patient gave consent to give updates to daughter as well as .
[2021-01-12] VITALS (32 sets, daily range): BP systolic 94–155; BP diastolic 55–94; PULSE 84–147; RESP 20–41; TEMP 36.1–38; O2SAT 89–99; BMI 28.5
[2021-01-12] MEDS: ACETAMINOPHEN 325 MG TABLET 650 MG PO (00:47)
[2021-01-12] MEDS: LORazepam INJ (*CRX) 2 MG/ML VIAL 1 MG IV PUSH ×2 (01:38→10:46)
[2021-01-12] MEDS: LEVALBUTEROL HFA (*SP) 15 GM INHALER 2 PUFF INHALATION ×2 (02:22→08:50)
[2021-01-12 05:00] LABS: Basophils Percent Auto 0.2 % (0.2-1.2); Eosinophils Absolute Auto 0.3 K/mm3 (0-0.3); Eosinophils Percent Auto 1.2 % (0-4.4); Hematocrit 36.8 % (37.0-47.0); Hemoglobin 12.6 g/dL (12.0-15.0); Immature Granulocyte Absolute 0.34 K/mm3 (0.00-0.031); Immature Granulocyte Percent A 1.6 % (0-0.5); Lymphocytes Absolute Auto 0.99 K/mm3 (0.9-3.2); Lymphocytes Percent Auto 4.6 % (18.3-44.2); Mean Corpuscular HGB Conc 34.2 g/dl (32-36); Mean Corpuscular Hemoglobin 28.4 pg (26-34); Mean Corpuscular Volume 82.9 fl (80-100); Mean Platelet Volume 10.5 fl (7.4-10.4); Monocytes Percent Auto 4.5 % (2.6-8.5); Neutrophils Absolute Auto 18.8 K/mm3 (1.3-6.7); Neutrophils Percent Auto 87.9 % (45.5-73.1); Platelet Count Result 435 k/mm3 (150-375); Red Blood Count 4.44 M/mm3 (4.2-5.4); White Blood Count 21.4 K/mm3 (4.5-10.0)
[2021-01-12 05:11] LABS: Alanine Aminotransferase 29 U/L (4-35); Albumin Level 3.2 g/dL (3.5-5.1); Alkaline Phosphatase 88 U/L (38-126); Anion Gap 7 mmol/L (8-16); Aspartate Amino Transferase 27 U/L (14-36); Bilirubin,Total 1.4 mg/dL (0.2-1.3); Blood Urea Nitrogen 12 mg/dL (7-17); Calcium 8.6 mg/dL (8.4-10.2); Carbon Dioxide 27 mmol/L (22-30); Chloride 94 mmol/L (98-107); Estimated CRCL calculation 91 ml/min; Estimated Glomerular Filt Rate > 60; Glucose 115 mg/dL (65-110); Magnesium 2.1 mg/dL (1.6-2.3); Phosphorus 3.3 mg/dL (2.5-4.5); Potassium 4.1 mmol/L (3.4-5.0); Sodium 128 mmol/L (137-145)
[2021-01-12 05:22] LABS: Platelet Estimate Increased (Adequate)
[2021-01-12 05:23] LABS: Burr Cells 1+ (NORMAL)
--- NOTE | 2021-01-12 08:22 | PC.NURSE ---
This patient, Yessi Thomas, was received from [ [id number]] on 01/11/21 at 2025 . Patient/family oriented to unit policies and routines
[2021-01-12] MEDS: ENOXAPARIN 40 MG/0.4 ML SYRINGE SUB-Q (09:10)
[2021-01-12] MEDS: METOPROLOL SUCCINATE EXT REL 12.5 MG TABCR 6.25 MG PO (09:10)
[2021-01-12] MEDS: PANTOPRAZOLE 40 MG TABLET PO (09:10)
[2021-01-12] MEDS: FLUTICASONE PROPIONATE 0.05% NA SPR 16 GM BTL (*BKC) 1 SPRAY NASAL ×2 (09:11→21:17)
[2021-01-12] MEDS: BARICITINIB 2 MG TABLET 4 MG PO (09:11)
--- NOTE | 2021-01-12 10:07 | PM.IMPN ---
Progress Note: A&P Assessment and Plan (1) Acute respiratory failure with hypoxia: Code(s): J96.01 - Acute respiratory failure with hypoxia Status: Acute Assessment and Plan: Patient with acute respiratory failure secondary to COVID pneumonia. CTA of the chest 12/30 showing no central pulmonary embolus identified (sensitivity limited by motion artifact) and patchy bilateral airspace opacities have pattern consistent with COVID 19 pneumonia. Oxygen requirment worsening. She is on maximal settings and still becomes hypoxic with minimal activity. Plan to move to ICU and patietn and ladle repairman notified. Called to inform him as well. Check CXR 40 minutes of critical care given. (2) Pneumonia due to COVID-19 virus: Code(s): U07.1 - COVID-19; J12.82 - Pneumonia due to coronavirus disease 2019 Status: Acute Assessment and Plan: Patient did not receive a COVID vaccination. She was exposed to an individual who was COVID positive. She did come in on hydroxychloroquine, zinc, vitamin-C and D from home. She began to have symptoms around 12/24/20. She was COVID positive (rapid) on 12/25/20 when in the ED. Completed Dexamethasone (was on 6mg daily but increased to BID 01/01). Baricitinib 4mg PO daily started 01/02/21. Convalescent plasma 01/04/21. Vit C,D, and zinc are on-board. lasix 40mg IV daily x 3 doses given 01/03/21. Continue airborne, contact, and droplet isolation. Diarrhea resolved so will stop Florastor and banatrol. Continue Xopenox, Mucinex. On Azithro but has completed a course so will stop. Spoke with with patient approval ti inform him that she will be moved to the ICU. He demands that his be treated with Solu-Medrol, Vit C and Ivermectin. Explained that Ivermectin is not standard of care. he became irate threatening lawsuit and continued to threaten lawsuit when I recommended he view other websites such as IDSA. He was unwilling to do further research and kept demanding the use of these medications. (3) Hyponatremia: Code(s): E87.1 - Hypo-osmolality and hyponatremia Status: Acute Assessment and Plan: Sodium low on admission and has mostly remained stable in the low 130's. Today, Na 128. Related to dehydration? Repeat urine studies. (4) Transaminitis: Code(s): R74.01 - Elevation of levels of liver transaminase levels Status: Acute Assessment and Plan: Liver enzymes elevated on admission felt secondary to COVID. Hepatitis panel negative. Levels have normalized. Continue to follow. (5) Dehydration: Code(s): E86.0 - Dehydration Status: Acute Assessment and Plan: Stable. Encourage oral intake. (6) Gastroesophageal reflux disease: Code(s): K21.9 - Gastro-esophageal reflux disease without esophagitis Status: Acute Assessment and Plan: Stable. Continue PPI. (7) DVT prophylaxis: Code(s): Z29.9 - Encounter for prophylactic measures, unspecified Status: Acute Assessment and Plan: Lovenox Subjective Date/time seen: 01/12/21 10:07 Interval history: 60yo female healthy female who presents to the ED with complaints of syncope. She was exposed to a COVID positive patient. She called the online frontline doctor care and was prescribed zinc, vitamin C, hydrochloroquine and has been taking these medications on admission. She is unvaccinated. Assuming care. Chart reviewed. She Denies CP but states she has pleuritic CP upper chest. Not able to lie prone due to SOB. She can not due very much activity due to profound hypoxia. She dropped to 70% when using the bedpan. Garvey placed. She is currently on AirVo max settings with NRB mask. She is a Full Code and she re-iterates this to me today. Exam Narrative: Tm 100.4 97 151/80 139 24 91% AirVo 60L 100% on NRB mask at 15L Gen - tachypenic Chest - decreased BS in the flanks with faint inspiratory crackles CV - tachycardic, regular; Tele sh
--- NOTE | 2021-01-12 11:14 | PC.NURSE ---
Pt refused vitamins and zinc. Pt later transferred to ICU for increased oxygen requirements. Medication disposed of at this time since pt doesn't want medication and requiring increase oxygen. Reported to ICU nurse Juliann and Dr. Steel.
--- NOTE | 2021-01-12 11:26 | PC.NURSE ---
This patient, Yessi Thomas, was received from [facility] on 01/12/21 at 1026. Bedside report received from MATHEW Rodríguez. Patient oriented to unit policies and routines
--- NOTE | 2021-01-12 11:28 | WPDCNINT ---
Assessment and Plan Assessment and plan (1) Acute respiratory failure with hypoxia: Code(s): J96.01 - Acute respiratory failure with hypoxia Status: Acute Assessment and Plan: Acute hypoxic respiratory failure with increasing oxygen requirements, transferred to the ICU on 01/12/2021 if she is maxed out on the Airvo at 90% FiO2 and 100% non-rebreather with O2 sats in the upper 80s. Patient also has been tachypneic, significantly tachycardic -discussed with patient and placed on BiPAP O2 sats, 12/6, 100% FiO2 -chest x-ray done in the ICU 05/03/2020: Showed extensive increased bilateral pulmonary infiltrates -will wean FiO2 to maintain O2 sats greater than 92% -ordered bronchodilators and Pulmicort (2) Pneumonia due to COVID-19 virus: Code(s): U07.1 - COVID-19; J12.82 - Pneumonia due to coronavirus disease 2019 Status: Acute Assessment and Plan: Patient tested positive for COVID on 12/25/2020. Patient is unvaccinated -she is status post Remdesivir, dexamethasone -status post azithromycin and ceftriaxone -currently on Baricitinib for 14 days -on vitamin-C, vitamin-D and zinc. Patient also on melatonin, -at home patient was also taking hydroxychloroquine -patient's was demanding to start method of prednisolone, nitazoxanide, fluvoxamine, cyproheptadine, famotidine -continue airborne, droplet, contact isolation precaution (3) DVT prophylaxis: Code(s): Z29.9 - Encounter for prophylactic measures, unspecified Status: Acute Assessment and Plan: Lovenox SQ (4) Hyponatremia: Code(s): E87.1 - Hypo-osmolality and hyponatremia Status: Acute Assessment and Plan: Could be related to hypovolemia, SIADH secondary to COVID pneumonia -continue to monitor Additional Plan Discussed with patient's spouse, Richard, updated with patient's condition and plan of care. I did tell him that she was on full support from the Airvo and non-rebreather and had to be placed on a BiPAP. If she fails that patient will be intubated, and placed on mechanical ventilator. He is agreeable to that. He was also adamant for us to use medications as mentioned above to which S did say that they are not enough data to support it. He once asked to transfer the patient to a tertiary hospital and I did tell him that most of the tertiary hospitals in [place] full and not accepting patients. I told him that I will try to transfer the patient once a bed is available. Code status: Full code Critical care time spent: 55 minute This dictation may have been done utilizing a voice recognition system. Attempts have been made to correct errors. However, there may be uncorrected grammatical, spelling, and recognition errors present. Due to a high probability of clinically significant, life threatening deterioration, the patient required my highest level of preparedness to intervene emergently and I personally spent this critical care time directly and personally managing the patient. This critical care time included obtaining a history; examining the patient; pulse oximetry; ordering and review of studies; arranging urgent treatment with development of a management plan; evaluation of patient's response to treatment; frequent reassessment; and discussions with other providers. It was exclusive of separately billable procedures and treating other patients and teaching time. Please see Assessment and Plan section and the rest of the note for further information on patient assessment and treatment C[employer]ion [employer]er Consult Note Consult date: 01/12/21 Time Seen: 10:31 Reason for consult: Acute hypoxic respiratory failure, COVID pneumonia, hyponatremia, patient has not received a COVID vaccine HPI: Yessi Thomas is a 60 year old female with significant past medical history of anxiety, diverticulosis, GERD, history of laparoscopic cholecystectomy, history of left breast biopsy presented the ED at [facility] on
--- NOTE | 2021-01-12 11:32 | PC.NURSE ---
This patient, Yessi Thomas, was transferred to [ICU-5 ] on 01/12/21 at 1025. Personal belongings sent with patient. Report given to [MATHEW Humphreys]. Appropriate documentation sent with patient.
[2021-01-12 11:41] LABS: Basophils Absolute Auto 0.1 K/mm3 (0.0-0.1); Basophils Percent Auto 0.2 % (0.2-1.2); Eosinophils Absolute Auto 0.2 K/mm3 (0-0.3); Eosinophils Percent Auto 0.8 % (0-4.4); Hematocrit 38.6 % (37.0-47.0); Hemoglobin 13.1 g/dL (12.0-15.0); Immature Granulocyte Absolute 0.49 K/mm3 (0.00-0.031); Immature Granulocyte Percent A 1.9 % (0-0.5); Lymphocytes Percent Auto 3.5 % (18.3-44.2); Mean Corpuscular HGB Conc 33.9 g/dl (32-36); Mean Corpuscular Hemoglobin 28.4 pg (26-34); Mean Corpuscular Volume 83.5 fl (80-100); Mean Platelet Volume 10.7 fl (7.4-10.4); Monocytes Absolute Auto 0.9 K/mm3 (0.1-0.6); Monocytes Percent Auto 3.5 % (2.6-8.5); Neutrophils Absolute Auto 22.9 K/mm3 (1.3-6.7); Neutrophils Percent Auto 90.1 % (45.5-73.1); Platelet Count Result 449 k/mm3 (150-375); Red Blood Count 4.62 M/mm3 (4.2-5.4); Red Cell Distribution Width 13.2 % (11.5-14.5); White Blood Count 25.5 K/mm3 (4.5-10.0)
[2021-01-12 11:50] LABS: INR 1.5; Prothrombin Time 17.7 Seconds (11.1-14.7)
[2021-01-12 11:51] LABS: Partial Thromboplastin Time 31.5 SECONDS (22.3-36.8)
[2021-01-12 11:53] LABS: D Dimer 2.46 ug/mL (<0.48)
[2021-01-12 11:59] LABS: Lactic Acid Reflex 1.5 mmol/L (0.7-2.1)
[2021-01-12 12:02] LABS: Alanine Aminotransferase 29 U/L (4-35)
[2021-01-12 12:27] LABS: Alanine Aminotransferase 30 U/L (4-35); Albumin Level 3.3 g/dL (3.5-5.1); Alkaline Phosphatase 106 U/L (38-126); Anion Gap 8 mmol/L (8-16); Aspartate Amino Transferase 29 U/L (14-36); Bilirubin,Total 1.5 mg/dL (0.2-1.3); Blood Urea Nitrogen 9 mg/dL (7-17); Calcium 8.9 mg/dL (8.4-10.2); Carbon Dioxide 30 mmol/L (22-30); Chloride 92 mmol/L (98-107); Estimated CRCL calculation 91 ml/min; Estimated Glomerular Filt Rate > 60; Glucose 107 mg/dL (65-110); Lactate Dehydrogenase 1166 U/L (313-618); Magnesium 2.1 mg/dL (1.6-2.3); Phosphorus 3.5 mg/dL (2.5-4.5); Potassium 4.1 mmol/L (3.4-5.0); Sodium 130 mmol/L (137-145)
[2021-01-12] MEDS: methylPREDNISolone SOD SUCC 40 MG VIAL IV PUSH ×2 (12:34→18:21)
[2021-01-12] MEDS: METOPROLOL TARTRATE INJ 5 MG/5 ML VIAL 2.5 MG IV PUSH (12:35)
[2021-01-12 13:05] LABS: Alveolar/Arterial O2 Gradient 590.5 mmHg; Base Excess ABG 2.6 mEq/l (+/-2.0); Fractional Inspired Oxygen 100 %; Oxygen Content ABG 18.2 %vol (16.0-22.0); Oxygen Saturation ABG 97.7 % (95.0-100.0); Oxyhemoglobin 96.4 % THb (90.0-100.0); PCO2 ABG 31.9 mmHg (35.0-45.0); PO2 ABG 90.6 mmHg (80.0-100.0); PO2 FiO2 Ratio Arterial Blood 0.91 %; Total Hemoglobin 13.4 g/dL (12.0-18.0)
[2021-01-12 13:06] LABS: Device NON-INVASIVE VENT; Modified Allen's Test Unable to perform; Site Drawn LEFT RADIAL; pH ABG 7.512 (7.350-7.450)
[2021-01-12 13:07] LABS: Non-Invasive Expiratory Pressure 6 CMH2O; Non-Invasive Inspiratory Pressure 12 CMH2O; Non-Invasive Vent Rate 12 /MIN
[2021-01-12 13:10] LABS: CRP 33.2 mg/dL (<1.0)
[2021-01-12] MEDS: dexmedeTOMIDine 400 MCG/100 ML 400 MCG/100 ML BAG IV CONT (13:12)
[2021-01-12] MEDS: LEVALBUTEROL NEB 1.25 MG/3 ML 0.63 MG INHALATION ×2 (15:55→20:27)
[2021-01-12] MEDS: IPRATROPIUM BR 0.02% INH SOLN 0.5 MG/2.5 ML VIAL INHALATION ×2 (15:55→20:28)
[2021-01-12] MEDS: BUDESONIDE RESPULE NEB 0.5 MG/2 ML AMP INHALATION (20:28)
[2021-01-12] MEDS: FAMOTIDINE 20 MG/2 ML VIAL IV PUSH (21:17)
[2021-01-12] MEDS: guaiFENesin 12 HR 600 MG TABCR PO (21:17)
[2021-01-13] VITALS (40 sets, daily range): BP systolic 101–152; BP diastolic 58–99; PULSE 76–107; RESP 20–32; TEMP 35.7–36.4; O2SAT 88–98
[2021-01-13] MEDS: METOPROLOL TARTRATE INJ 5 MG/5 ML VIAL 2.5 MG IV PUSH ×4 (00:52→18:01)
[2021-01-13] MEDS: methylPREDNISolone SOD SUCC 40 MG VIAL IV PUSH ×4 (00:52→18:01)
[2021-01-13] MEDS: dexmedeTOMIDine 400 MCG/100 ML 400 MCG/100 ML BAG 7.08 MCG IV CONT (02:14)
[2021-01-13] MEDS: IPRATROPIUM BR 0.02% INH SOLN 0.5 MG/2.5 ML VIAL INHALATION ×4 (02:37→20:56)
[2021-01-13] MEDS: LEVALBUTEROL NEB 1.25 MG/3 ML 0.63 MG INHALATION ×4 (02:37→20:56)
[2021-01-13 05:30] LABS: Alveolar/Arterial O2 Gradient 608.9 mmHg; Base Excess ABG 1.1 mEq/l (+/-2.0); Carboxyhemoglobin 0.3 % THb (0-2.0); Device NON-INVASIVE VENT; Fractional Inspired Oxygen 100 %; HCO3 ABG 25.4 mEq/l (22.0-26.0); Methemoglobin ABG 0.3 %THb (0-1.5); Modified Allen's Test Pass; Oxygen Content ABG 16.4 %vol (16.0-22.0); Oxygen Saturation ABG 93.3 % (95.0-100.0); Oxyhemoglobin 91.2 % THb (90.0-100.0); PCO2 ABG 39.3 mmHg (35.0-45.0); PO2 ABG 64.8 mmHg (80.0-100.0); PO2 FiO2 Ratio Arterial Blood 0.65 %; Reduced Hemoglobin 8.2 %THb (0-5.0); Site Drawn RIGHT RADIAL; Total Hemoglobin 12.8 g/dL (12.0-18.0); pH ABG 7.428 (7.350-7.450)
[2021-01-13 05:31] LABS: Non-Invasive Expiratory Pressure 6 CMH2O; Non-Invasive Inspiratory Pressure 12 CMH2O; Non-Invasive Vent Rate 12 /MIN
[2021-01-13 06:14] LABS: Basophils Percent Auto 0.1 % (0.2-1.2); Hematocrit 35.7 % (37.0-47.0); Hemoglobin 11.8 g/dL (12.0-15.0); Immature Granulocyte Absolute 0.24 K/mm3 (0.00-0.031); Immature Granulocyte Percent A 1.6 % (0-0.5); Lymphocytes Absolute Auto 0.42 K/mm3 (0.9-3.2); Lymphocytes Percent Auto 2.8 % (18.3-44.2); Mean Corpuscular HGB Conc 33.1 g/dl (32-36); Mean Corpuscular Hemoglobin 28.3 pg (26-34); Mean Corpuscular Volume 85.6 fl (80-100); Mean Platelet Volume 11.3 fl (7.4-10.4); Monocytes Absolute Auto 0.5 K/mm3 (0.1-0.6); Neutrophils Absolute Auto 13.7 K/mm3 (1.3-6.7); Neutrophils Percent Auto 92.5 % (45.5-73.1); Platelet Count Result 282 k/mm3 (150-375); Red Blood Count 4.17 M/mm3 (4.2-5.4); Red Cell Distribution Width 13.1 % (11.5-14.5); White Blood Count 14.9 K/mm3 (4.5-10.0)
[2021-01-13 07:45] LABS: Creatinine Urine 91.7 mg/dL
[2021-01-13 07:47] LABS: Sodium Urine Random 12 meq/L
[2021-01-13 08:16] LABS: Alanine Aminotransferase 26 U/L (4-35); Albumin Level 3.3 g/dL (3.5-5.1); Alkaline Phosphatase 96 U/L (38-126); Anion Gap 13 mmol/L (8-16); Aspartate Amino Transferase 28 U/L (14-36); Bilirubin,Total 0.8 mg/dL (0.2-1.3); Blood Urea Nitrogen 17 mg/dL (7-17); Calcium 9.2 mg/dL (8.4-10.2); Carbon Dioxide 23 mmol/L (22-30); Chloride 93 mmol/L (98-107); Estimated CRCL calculation 107 ml/min; Estimated Glomerular Filt Rate > 60; Glucose 179 mg/dL (65-110); Lactate Dehydrogenase 933 U/L (313-618); Magnesium 2.4 mg/dL (1.6-2.3); Phosphorus 4.3 mg/dL (2.5-4.5); Sodium 129 mmol/L (137-145)
[2021-01-13] MEDS: BUDESONIDE RESPULE NEB 0.5 MG/2 ML AMP INHALATION ×2 (09:03→20:56)
[2021-01-13] MEDS: ASCORBIC ACID 500 MG TABLET 1000 MG PO ×2 (09:11→18:01)
[2021-01-13] MEDS: CHOLECALCIFEROL 1,000 UNITS TABLET 2000 UNITS BY MOUTH (09:11)
[2021-01-13] MEDS: BARICITINIB 2 MG TABLET 4 MG PO (09:11)
[2021-01-13] MEDS: guaiFENesin 12 HR 600 MG TABCR PO ×2 (09:12→20:24)
[2021-01-13] MEDS: FLUTICASONE PROPIONATE 0.05% NA SPR 16 GM BTL (*BKC) 1 SPRAY NASAL ×2 (09:12→20:24)
[2021-01-13] MEDS: VITAMIN B COMPLEX CAPSULE 1 CAP BY MOUTH (09:12)
[2021-01-13] MEDS: FAMOTIDINE 20 MG/2 ML VIAL IV PUSH ×2 (09:12→20:24)
[2021-01-13] MEDS: ZINC SULFATE 220 MG CAPSULE PO ×2 (09:12→18:01)
[2021-01-13] MEDS: SACCHAROMYCES BOULARDII 250 MG CAPSULE PO ×2 (09:12→18:01)
[2021-01-13] MEDS: ENOXAPARIN 40 MG/0.4 ML SYRINGE SUB-Q (09:12)
--- NOTE | 2021-01-13 09:25 | WPDINTPN ---
Progress Note: A&P Assessment and Plan (1) Acute respiratory failure with hypoxia: Code(s): J96.01 - Acute respiratory failure with hypoxia Status: Acute Assessment and Plan: Acute hypoxic respiratory failure secondary to COVID-19 pneumonia. Over the course she has developed increasing oxygen requirements, transferred to the ICU on 01/12/2021 -currently on BiPAP 12/6 and 100%. Does not appear in respiratory distress at this time -I will do a trial of Airvo 60 L 100% FiO2 today to see if patient can come off of BiPAP during the day. Will use BiPAP at night and p.r.n. if that is the case -patient still at risk of needing intubation if she deteriorates further or becomes BiPAP dependent -patient has not been able to self prone during this hospitalization -chest x-ray reviewed and shows bilateral infiltrates and pneumomediastinum -ABG reviewed -ordered bronchodilators and Pulmicort - Continue Precedex infusion for anxiety to allow safe NIPPV (2) Pneumonia due to COVID-19 virus: Code(s): U07.1 - COVID-19; J12.82 - Pneumonia due to coronavirus disease 2019 Status: Acute Assessment and Plan: Patient tested positive for COVID on 12/25/2020. Patient is unvaccinated -she is status post Remdesivir, dexamethasone -status post azithromycin and ceftriaxone -currently on Baricitinib for 14 days -on Solu-Medrol -on vitamin-C, vitamin-D and zinc. Patient also on melatonin, -at home patient was also taking hydroxychloroquine -patient's was demanding to start method of prednisolone, nitazoxanide, fluvoxamine, cyproheptadine, famotidine -continue airborne, droplet, contact isolation precaution -inflammatory markers continue to be high (3) DVT prophylaxis: Code(s): Z29.9 - Encounter for prophylactic measures, unspecified Status: Acute Assessment and Plan: Lovenox SQ (4) Hyponatremia: Code(s): E87.1 - Hypo-osmolality and hyponatremia Status: Acute Assessment and Plan: Could be related to hypovolemia, SIADH secondary to COVID pneumonia -continue to monitor (5) Pneumomediastinum: Code(s): J98.2 - Interstitial emphysema Status: Acute Assessment and Plan: Small area suggestive of new mediastinum on chest x-ray today likely secondary to noninvasive positive pressure ventilation Continue to monitor at this time Additional Plan Code status: Full code Critical care time spent: 31 minute This dictation may have been done utilizing a voice recognition system. Attempts have been made to correct errors. However, there may be uncorrected grammatical, spelling, and recognition errors present. Due to a high probability of clinically significant, life threatening deterioration, the patient required my highest level of preparedness to intervene emergently and I personally spent this critical care time directly and personally managing the patient. This critical care time included obtaining a history; examining the patient; pulse oximetry; ordering and review of studies; arranging urgent treatment with development of a management plan; evaluation of patient's response to treatment; frequent reassessment; and discussions with other providers. It was exclusive of separately billable procedures and treating other patients and teaching time. Please see Assessment and Plan section and the rest of the note for further information on patient assessment and treatment Subjective Date/time seen: 01/13/21 09:25 She states she feels slightly better than yesterday. She denies any chest pain. She states she has minimal cough and does feel short of breath on and off. Denies any other complaints. She has been wearing BiPAP since yesterday and is on Precedex infusion 0.4 Interval history: 60yo female healthy female who presents to the ED with complaints of syncope. She was exposed to a COVID positive patient. She called the online frontline doctor care and was prescribed zinc, vitami
--- NOTE | 2021-01-13 11:16 | PCDIET ---
ICU Rounding Note: Patient with minimal intake since 01/11/21 due to bipap requirement. May need to consider nutrition support if intake is not feasible in the next few days. Last recorded weight is 66.3 kg which is down from last review. Bowel Motility: Last documented BM on 01/11/21 x 2. Labs Reviewed: WBC (14.9), RBC (4.17), Hgb (11.8), Hct (35.7), Glu (179), Cr (0.4), Na (129), Alb (3.3), Mg (2.4) Meds Noted: Olumiant, Pulmicort, Precedex, Pepcid, Atrovent, Xopenex, Solu Medrol, Lopressor, Vitamin C, Vitamin D, Vitamin B Complex, Zinc Sulfate, Florastor Additional Notes: No skin breakdown documented. Will follow up every 3 days.
[2021-01-13] MEDS: dexmedeTOMIDine 400 MCG/100 ML 400 MCG/100 ML BAG 10.62 MCG IV CONT (12:08)
[2021-01-13] MEDS: dexmedeTOMIDine 400 MCG/100 ML 400 MCG/100 ML BAG 14.16 MCG IV CONT (18:12)
--- NOTE | 2021-01-13 23:00 | P.PNCROSS_ITS ---
Event Note Event Note Event Note: I received a phone call from the patient's nurse with reports that the patient had yelled out that she was having difficulties breathing. Patient reported that she was tired and could no longer tolerate the BiPAP and asked to be intubated. I had spoken with the php wordpress developer earlier in the day and he suspected that she may need intubation soon. I rediscussed the case with him and he was in agreement with intubation. When I came into the room the patient appeared tired and ill. Her voice was very weak and she had little reserve, only able to talk in 1 to 2 word sentences. The patient was intubated easily and without issue. Post intubation chest x-ray was reviewed personally and it showed the ET tube was less than 2 cm above the lobito and that was pulled back couple of cm. A right-sided pneumothorax was also noted and a call was placed to Dr. Adams, surgeon, who graciously agreed to come place a chest tube CAMILA. While awaiting his arrival, the patient had transient episodes of bradycardia into the high 40s as well as hypotension, in fact her blood pressure was as low as the 50 systolic and peripheral norepinephrine was ordered STAT while preparing for emergent central line insertion. The patient is stable post central line and chest tube insertion. Critical Care Time Critical Care Time: Yes Total Critical Care Time: 35 Attestation: Due to a high probability of clinically significant, life threatening deterioration, the patient required my highest level of preparedness to intervene emergently and I personally spent this critical care time directly and personally managing the patient. This critical care time included obtaining a history; examining the patient; pulse oximetry; ordering and review of studies; arranging urgent treatment with development of a management plan; evaluation of patient's response to treatment; frequent reassessment; and discussions with other providers. Please see event note for further information on patient assessment and treatment
--- NOTE | 2021-01-13 23:15 | WPDPROCEDUR ---
Procedures Intubation Intubation Date: 01/13/21 Intubation Time: 23:15 A pre-procedural Time-Out was completed immediately before starting the procedure and confirmed: Patient Identification, Site, Procedure, Patient Position and the Availability of Requisite Equipment: Yes Sedative: etomidate Mg given: 15 Paralytic: succinylcholine Mg given: 80 Laryngoscope: Lisa Assist device used: fiber optic device ET tube size: cuffed Tube secured depth (cm): 23 Tube secured location: lips Tube placement confirmation: visualized tube passing through cords, equal breath sounds bilaterally, no breath sounds over epigastrium and confirmation by capnometry Patient tolerated procedure: well Intubation complications: none Additional comments: Dr. Brian, systems architect, discussed the patient's case with me at the end of his day. He expected that the patient may need to be intubated within the next 24 hours or so. The nurse called me at around 23:05 with reports that patient had cried out and said that she just could not tolerate the BiPAP any longer and that she was tired and ready to be intubated. I spoke with Dr. Sherif Damon, attending ED physician, prior to the procedure and he was available if needed. Patient's SpO2 was 90% on 100% FiO2 prior to RSI. The patient was intubated easily and on 1st attempt using a glide scope mac 3. A 7.5 ET tube was visualized passing through the vocal cords. ET tube was secured 23 cm at the lip with positive CO2 colorimetric change and fog in the ET tube. Lung sounds were diminished on the right and chest x-ray post intubation showed at least a 20% pneumothorax on the right side. ET tube was pulled back about [address] Brian was updated and he gave orders for vent settings and sedation. Dr. Patton, [facility] president [employer], read the chest x-ray with me and agreed with the above findings. Call is now out to General surgery for chest tube placement.
[2021-01-13] MEDS: FENTANYL 2,500MCG/NS250ML(*CRX 2,500 MCG/250 ML BAG IV CONT (23:45)
[2021-01-13] MEDS: MIDAZOLAM 100MG/NS 100ML(*CRX) 100 MG/100 ML BAG IV CONT (23:46)
--- NOTE | 2021-01-13 23:52 | PC.NURSE ---
2299 Patient called out, upon entering room patient states I can't breathe! Discussed intubation - patient states I'm tired, lets do it. 2304 Notified terminal makeup operator of patient request for intubation. ARPIT Goldberg notified of intubation request.
[2021-01-14] VITALS (58 sets, daily range): BP systolic 53–136; BP diastolic 34–90; PULSE 76–133; RESP 19–30; TEMP 35.3–36.3; O2SAT 82–98; BMI 26.8
[2021-01-14] MEDS: SODIUM CHLORIDE 0.9% IV 1,000 ML 999 ML IV CONT (00:05)
--- NOTE | 2021-01-14 00:30 | WPDPROCEDUR ---
Procedures Central Line Placement Right Femoral: Central Line Date: 01/14/21 Central Line Time: 00:30 Performed Emergently - Given emergent patient condition, temporal constraints may have precluded informed consent.: Yes Consent: Patient was able to give consent prior to intubation however within an hour post intubation she became hypotensive leaving no time at this hour to call family for consent thus central line was placed emergently given life-threatening condition. Time Out Performed: Yes Patient Position: supine Patient placed on monitor/pulse ox: Yes Provider Prep: mask, sterile gown, sterile gloves, Max. sterile barrier precautions, cap and hand hygiene with conventional soap/water or alcohol based hand rub Central line prep: 2% Chlorhexidine scrub Local anesthesia used: lidocaine 1% Amount of anesthesia used (ml): 5 Sterile US Technique with sterile gel/sterile probe covers: Yes Central line lumen inserted: triple Ukrainian: 7 Length (cm): 20 Post Procedure: sutured in place, good blood return, all ports aspirated, flushed, capped, transparent dressing, securement product and aseptic technique maintained throughout procedure Post procedure x-ray: other (n/a with femoral placement) Patient tolerated procedure: well Complications: none Additional comments: Dr. Sherif Damon, attending ED physician, was available for needed.
[2021-01-14] MEDS: NOREPINEPHRINE 8 MG/D5W 250 ML 8 MG/250 ML BAG 9.38 MG IV CONT (00:35)
--- NOTE | 2021-01-14 01:04 | W.PM.PROC2 ---
Procedure Note - Detailed Date of Procedure 01/14/21 Pre-op Diagnosis 1. Right pneumothorax 2. Covid pneumonia,acute respiratory failure with hyp Post-op Diagnosis same Procedure Performed Chest tube Placement (tube thoracostomy)( 28 Nigerien size.) Surgeon Charles Adams MD Geotechnical Operating Engineer none Anesthesia none (Pt was sedated.) Indications discovered pneumothorax on the right Findings normal chest wall anatomy on the side of tube placement. Description of Procedure Standard full size tube thoracostomy: I carefully prepped the entire right chest wall with the patient Laying slightly head up and supine. The arm on the side of chest tube placement was positioned up above the head. Following this using sterile technique we carefully prepped the lateral right chest wall in the axillary area and this was draped off sterilely. Time-out was performed with the team helping me. Following this an incision was made using an 11 blade knife on approximately a the 5th rib and I then tunneled up over the 4th rib and then using a hemostat penetrated the intercostal space and the parietal pleura. The hemostat was spread and a gush of air was noted. A Peon was then inserted and spread more. Following this the 28 Nigerien size chest tube was carefully inserted after placing a finger into the chest cavity and sweeping it around the inside of the nearby chest cavity. The chest tube was inserted posteriorly and cephalad. It was inserted into about the 16 cm naveen and then sutured into place with a U shape stitch using 0 silk which was tied with just 1 throw and then wrapped around the tube and then tied with 3 knots. Vaseline gauze was applied around the tube as dressing followed by a 3 x 3 split dressing and then 4 pieces of nylon tape that were cut with 3 arms using the center arm of each piece of tape to wrap around the tube to hold it in place. The tube was then connected to Pleur-Evac and the Pleur-Evac to 20 cm of suction. The patient tolerated the procedure well. Implants one chest tube, (28 Nigerien) Estimated Blood Loss 2 Drains Yes (one size 28 Nigerien chest tube) Packing No Pathology none sent Complications No immediate complications Condition stable Disposition ICU
--- NOTE | 2021-01-14 01:11 | PM.CNGS ---
Assessment and Plan Assessment and plan (1) Pneumothorax on right: Onset Date: ~01/14/21 Code(s): J93.9 - Pneumothorax, unspecified Status: Acute Assessment and Plan: Chest x-ray reviewed showing moderate size pneumothorax on the right. Plan is to place a right-sided thoracostomy tube 28 [place]. (2) Pneumonia due to COVID-19 virus: Code(s): U07.1 - COVID-19; J12.82 - Pneumonia due to coronavirus disease 2019 Status: Acute (3) Hypoxia: Code(s): R09.02 - Hypoxemia Status: Acute History of Present Illness Consult details Consult date: 01/14/21 Reason for consult: chest tube (60-year-old white female with COVID pneumonia) Requesting physician: Jeremiah Brian MD Narrative: Patient had been in ICU on a BiPAP but because of further desaturation had a oral endotracheal intubation this evening. Chest x-ray done to check on the endotracheal tube placement showed a medium size right pneumothorax. Therefore I was called to consider placing a chest tube. Review of Systems Review of Systems: ROS unobtainable: Yes unobtainable due to endotracheal tube and other (CC review of systems from admission.) [facility] Past Medical History Medical History Anxiety Diverticulosis Gastroesophageal reflux disease Surgical History Surgical History History of hysterectomy History of laparoscopic cholecystectomy History of left breast biopsy Excision of benign cyst. History of thumb surgery Tendon repair of left thumb. Family History Family History Father Diabetes mellitus Heart disease Grandparent Malignant neoplasm of prostate Cancer Social History Social History Social History: Surrogate decision maker: Richard Thomas, . Code status: Full code. Smoking status: Never smoker Alcohol intake: never Alcohol use details: Rare alcohol use. Substance use: never Substance use type: does not use Additional living arrangements comments: The patient lives in [place] with her . They have 1 grown daughter who lives in [place] with their 3 grand children. 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 Spiritual care concerns: No Meds Home Medications and Allergies Home Medications Medication Instructions Recorded Confirmed Type B Complex-Vitamin B12 500 mg BYMOUTH DAILY 12/25/20 12/30/20 History Vitamin D3 2,000 units BYMOUTH DAILY 12/25/20 12/30/20 History omeprazole 20 mg PO Q12H 12/25/20 12/30/20 History ondansetron 4 mg PO Q8H PRN #14 tablet 12/25/20 12/30/20 Rx zinc sulfate 25 mg PO DAILY 12/30/20 12/30/20 History Allergies Allergy/AdvReac Type Severity Reaction Status Date / Time codeine Allergy Severe Hives / Verified 12/30/20 11:49 Red Face Vital Signs Vital Signs - 24 hr 01/13/21 02:00 01/13/21 02:02 01/13/21 02:14 Temperature Pulse Rate 80 77 77 Respiratory Rate 23 H 22 H 22 H Blood Pressure 102/85 Pulse Oximetry 98 01/13/21 02:38 01/13/21 02:47 01/13/21 04:00 Temperature 35.7 C L Pulse Rate 81 82 91 Respiratory Rate 24 H 22 H 25 H Blood Pressure 114/58 L Pulse Oximetry 97 95 01/13/21 05:18 01/13/21 06:00 01/13/21 06:36 Temperature Pulse Rate 97 91 86 Respiratory Rate 27 H 25 H Blood Pressure 109/68 Pulse Oximetry 94 95 01/13/21 06:43 01/13/21 08:00 01/13/21 09:02 Temperature 36.4 C Pulse Rate 84 82 84 Respiratory Rate 24 H 24 H 29 H Blood Pressure 106/76 Pulse Oximetry 94 01/13/21 09:03 01/13/21 09:10 01/13/21 10:00 Temperature Pulse Rate 84 81 106 H Respiratory Rate 32 H 29 H 29 H Blood Pressure 113/90 Pulse Oximetry 93 89 L 01/13/21 11:26 01/13/21 12:00 01/13/21 12:07 Temperature 36.4 C Pulse Rate 92 94
--- NOTE | 2021-01-14 01:56 | PC.NURSE ---
First attempt made to notify Richard of patient status. Message left.
[2021-01-14] MEDS: METOPROLOL TARTRATE INJ 5 MG/5 ML VIAL 2.5 MG IV PUSH ×2 (02:23→06:08)
[2021-01-14] MEDS: methylPREDNISolone SOD SUCC 40 MG VIAL IV PUSH ×5 (02:23→23:25)
[2021-01-14] MEDS: IPRATROPIUM BR 0.02% INH SOLN 0.5 MG/2.5 ML VIAL INHALATION ×4 (02:49→20:00)
[2021-01-14] MEDS: LEVALBUTEROL NEB 1.25 MG/3 ML 0.63 MG INHALATION ×4 (02:51→20:00)
[2021-01-14 04:39] LABS: Alveolar/Arterial O2 Gradient 572.3 mmHg; Base Excess ABG 0.7 mEq/l (+/-2.0); Carboxyhemoglobin 0.3 % THb (0-2.0); Fractional Inspired Oxygen 100 %; HCO3 ABG 25.7 mEq/l (22.0-26.0); Methemoglobin ABG 0.4 %THb (0-1.5); Oxygen Content ABG 16.8 %vol (16.0-22.0); Oxygen Saturation ABG 97.5 % (95.0-100.0); Oxyhemoglobin 95.5 % THb (90.0-100.0); PCO2 ABG 42.4 mmHg (35.0-45.0); PO2 ABG 98.3 mmHg (80.0-100.0); PO2 FiO2 Ratio Arterial Blood 0.98 %; Reduced Hemoglobin 3.8 %THb (0-5.0); Total Hemoglobin 12.4 g/dL (12.0-18.0)
[2021-01-14 04:40] LABS: Arterial Blood Gas PEEP 10 cmH2O; Arterial Blood Gas Vent Mode CMV; Arterial Blood Gas Ventilator rate 22 /MIN; Device VENTILATOR; Modified Allen's Test Pass; Site Drawn LEFT RADIAL
[2021-01-14 04:41] LABS: Arterial Blood Gas Tidal Volume 370 ml
[2021-01-14 05:57] LABS: Hematocrit 33.7 % (37.0-47.0); Hemoglobin 11.3 g/dL (12.0-15.0); Mean Corpuscular HGB Conc 33.5 g/dl (32-36); Mean Corpuscular Hemoglobin 28.3 pg (26-34); Mean Corpuscular Volume 84.3 fl (80-100); Mean Platelet Volume 10.5 fl (7.4-10.4); Platelet Count Result 431 k/mm3 (150-375); Red Cell Distribution Width 13.1 % (11.5-14.5)
[2021-01-14 06:20] LABS: Alanine Aminotransferase 25 U/L (4-35); Albumin Level 3.1 g/dL (3.5-5.1); Alkaline Phosphatase 99 U/L (38-126); Anion Gap 6 mmol/L (8-16); Aspartate Amino Transferase 31 U/L (14-36); Bilirubin,Total 0.6 mg/dL (0.2-1.3); Blood Urea Nitrogen 19 mg/dL (7-17); Calcium 9.4 mg/dL (8.4-10.2); Carbon Dioxide 30 mmol/L (22-30); Chloride 98 mmol/L (98-107); Estimated CRCL calculation 75 ml/min; Estimated Glomerular Filt Rate > 60; Glucose 156 mg/dL (65-110); Magnesium 2.4 mg/dL (1.6-2.3); Potassium 4.2 mmol/L (3.4-5.0); Sodium 134 mmol/L (137-145)
[2021-01-14] MEDS: BUDESONIDE RESPULE NEB 0.5 MG/2 ML AMP INHALATION ×2 (09:03→20:00)
[2021-01-14] MEDS: MIDAZOLAM HCL (*CRX) 2 MG/2 ML VIAL 4 MG IV PUSH ×2 (09:10→11:44)
[2021-01-14] MEDS: CISATRACURIUM BESYLATE 20 MG/10 ML VIAL 10 MG IV PUSH (09:16)
[2021-01-14] MEDS: CISATRACURIUM BESYLATE 200 MG in DEXTROSE 5% 80 ML 5.99 ML IV CONT (09:24)
[2021-01-14] MEDS: ASCORBIC ACID 500 MG TABLET 1000 MG PO ×2 (09:27→17:37)
[2021-01-14] MEDS: FAMOTIDINE 20 MG/2 ML VIAL IV PUSH ×2 (09:27→20:29)
[2021-01-14] MEDS: BARICITINIB 2 MG TABLET 4 MG PO (09:27)
[2021-01-14] MEDS: ENOXAPARIN 40 MG/0.4 ML SYRINGE SUB-Q (09:27)
[2021-01-14] MEDS: ZINC SULFATE 220 MG CAPSULE PO ×2 (09:28→17:37)
[2021-01-14] MEDS: CHOLECALCIFEROL 1,000 UNITS TABLET 2000 UNITS BY MOUTH (09:28)
[2021-01-14] MEDS: SACCHAROMYCES BOULARDII 250 MG CAPSULE PO ×2 (09:28→17:37)
--- NOTE | 2021-01-14 09:30 | WPDINTPN ---
Progress Note: A&P Assessment and Plan (1) Acute respiratory failure with hypoxia: Code(s): J96.01 - Acute respiratory failure with hypoxia Status: Acute Assessment and Plan: Acute hypoxic respiratory failure secondary to COVID-19 pneumonia. Over the course she has developed increasing oxygen requirements, transferred to the ICU on 01/12/2021 -was on BiPAP 12/6 and 100%. Intubated 01/13 -ABG reviewed and will increase PEEP to 12 -will start patient on neuromuscular miles for better ventilator synchrony and place patient in prone position as tolerated -chest x-ray reviewed and shows bilateral infiltrates, improved right pneumothorax and persistent pneumomediastinum -ordered bronchodilators and Pulmicort -continue Versed and fentanyl infusion (2) Pneumonia due to COVID-19 virus: Code(s): U07.1 - COVID-19; J12.82 - Pneumonia due to coronavirus disease 2019 Status: Acute Assessment and Plan: Patient tested positive for COVID on 12/25/2020. Patient is unvaccinated -she is status post Remdesivir, dexamethasone -status post azithromycin and ceftriaxone -currently on Baricitinib for 14 days -she is on Solu-Medrol -on vitamin-C, vitamin-D and zinc. Patient also on melatonin, -at home patient was also taking hydroxychloroquine -patient's was demanding to start method of prednisolone, nitazoxanide, fluvoxamine, cyproheptadine, famotidine -continue airborne, droplet, contact isolation precaution -inflammatory markers continue to be high (3) DVT prophylaxis: Code(s): Z29.9 - Encounter for prophylactic measures, unspecified Status: Acute Assessment and Plan: Lovenox SQ (4) Hyponatremia: Code(s): E87.1 - Hypo-osmolality and hyponatremia Status: Acute Assessment and Plan: Could be related to hypovolemia, SIADH secondary to COVID pneumonia 01/13 she was given 1 L bolus -continue to monitor (5) Pneumomediastinum: Code(s): J98.2 - Interstitial emphysema Status: Acute Assessment and Plan: Small area suggestive of new mediastinum on chest x-ray today likely secondary to noninvasive positive pressure ventilation Continue to monitor at this time (6) Pneumothorax on right: Onset Date: ~01/14/21 Code(s): J93.9 - Pneumothorax, unspecified Status: Acute Assessment and Plan: Status post chest tube placement by General surgery Chest tube is on suction No air leak at this time Additional Plan DVT prophylaxis -Lovenox subQ Stress ulcer prophylaxis -Pepcid IV Nutrition -start Tube Feeds Code Status - Full Code I called and spoke to ECMO team at [facility]. Discussed case with Dr. Devlin. Recommended continuing to optimize mechanical ventilation and current treatment before evaluation for ECMO in next couple of days. Told me that they do not have bed at this point but would be open to taking her depending on her course in next few days and in case the bed becomes available. I spoke to patient's yesterday by phone and he was adamant that we start patient on multiple unproven therapies like ivermectin, fluvoxamine nitozoxanide and high-dose of various vitamins that he had read on Internet and discussed with his friends. He also mentioned therapeutic plasma exchange. I tried to explain him the lack of evidence behind all these therapies and are not part of treatment for COVID. I did offer to transfer patient to a facility of his choice if he wanted to. I did explain to him the patient will likely need intubation in near future. He did not want patient to be intubated but also wanted her to be full code. This morning I spoke to him again after the events overnight explained him the situation. Also told him about my conversation with [facility]. I answered all his questions Critical care time spent: 40 minute This dictation may have been done utilizing a voice recognition system. Attempts have been made to correct erro
[2021-01-14] MEDS: MINERAL OIL/WHITE PETROLATUM OINTMENT 1 APPLIC EACH EYE ×2 (09:34→20:29)
--- NOTE | 2021-01-14 11:40 | PCFNICU ---
ICU Rounding Note: Pt current nutrition is Vital AF 1.2 at 20 ml/hr over 22 hours. Last recorded weight is 66.6 kg up from 70.8 kg. Bowel Motility:+BM reported 01/11 Labs Reviewed:BUN 19,Cr 0.6, Mg 2.4,ALb 3.1,Na 134, Alb 3.1,Hgb 11.3,Hct 33.7 Meds Noted:Versed,Fentanyl, Olumiant, Pulmicort, Precedex, Pepcid, Atrovent, Xopenex, Solu Medrol, Lopressor, Vitamin C, Vitamin D, Zinc Sulfate, Florastor Additional Notes: Patient on mechanical vent. Tube feedings of Vital AF 1.2 started today at 20 ml/hr advancing by 10 ml q 4 hours to goal rate of 50 ml/hr over 22 hours. Goal rate of tube feedings will provide patient with 1320 kcals/83 gms protein. Right chest tube. No skin issues. Following daily in ICU rounds. Assessing/reassessing every Tuesday and Tuesday.
[2021-01-14] MEDS: CISATRACURIUM BESYLATE 200 MG in DEXTROSE 5% 80 ML 6.99 ML IV CONT (11:48)
[2021-01-14 12:18] LABS: Glucose Point of Care 149 mg/dl (65-105)
[2021-01-14] MEDS: CENTRAL LINE FLUSH 10 ML IV PUSH ×2 (14:36→20:30)
[2021-01-14] MEDS: FENTANYL 2,500MCG/NS250ML(*CRX 2,500 MCG/250 ML BAG 20 MCG IV CONT (14:41)
[2021-01-14 18:01] LABS: Glucose Point of Care 160 mg/dl (65-105)
--- NOTE | 2021-01-14 18:34 | PM.PNGS ---
Progress Note: A&P Assessment and Plan (1) Pneumothorax on right: Onset Date: ~01/14/21 Code(s): J93.9 - Pneumothorax, unspecified Status: Acute Assessment and Plan: stable on the ventilator with chest tube function appropriately. Chest x-ray report reveals chest tube in appropriate position with small residual pneumothorax. (2) Pneumonia due to COVID-19 virus: Code(s): U07.1 - COVID-19; J12.82 - Pneumonia due to coronavirus disease 2019 Status: Acute (3) Acute respiratory failure with hypoxia: Code(s): J96.01 - Acute respiratory failure with hypoxia Status: Acute Additional Plan Discussed situation with Dr. Brian. He is fine with us being available and not seen the patient unless called. He will decide later today whether patient needs other chest x-ray now or wait until power generation technician on 01/15/2021 Subjective Subjective Date/Time Seen: 01/14/21 07:34 patient not communicating. On the ventilator with COVID pneumonia. Nurse reports chest tube function okay with chest tube to Pleur-evac and suction. Pulse oximetry holding in the 90s. Review of Systems Review of Systems: ROS unobtainable: Yes unobtainable due to endotracheal tube Exam Const: General: other ( Sedated and on the ventilator in ICU) Chest: Other: I did not go in the room. I could see that the Pleur-Evac was functioning appropriately standing just outside the room. It was connected to suction. Nurse reports there is bubbling over confirming a continuing air leak. Objective Data Vital Signs Vital Signs: Vital Signs - 24 hr 01/13/21 20:00 01/13/21 20:55 01/13/21 20:59 Temperature 36.4 C Pulse Rate 79 82 79 Respiratory Rate 27 H 26 H 27 H Blood Pressure 121/91 H Pulse Oximetry 91 98 01/13/21 21:01 01/13/21 22:00 01/13/21 23:15 Temperature Pulse Rate 81 78 91 Respiratory Rate 25 H 22 H Blood Pressure 152/99 H Pulse Oximetry 91 96 01/13/21 23:43 01/13/21 23:45 01/13/21 23:46 Temperature Pulse Rate 92 92 92 Respiratory Rate 20 20 20 Blood Pressure Pulse Oximetry 01/14/21 00:00 01/14/21 00:15 01/14/21 00:30 Temperature 35.8 C L Pulse Rate 80 85 80 Respiratory Rate 30 H 25 H 22 H Blood Pressure 53/43 L Pulse Oximetry 82 L 01/14/21 00:35 01/14/21 00:45 01/14/21 01:00 Temperature Pulse Rate 80 76 95 Respiratory Rate 30 H 20 Blood Pressure 82/43 L 122/82 129/83 Pulse Oximetry 01/14/21 01:15 01/14/21 02:00 01/14/21 02:23 Temperature Pulse Rate 86 78 84 Respiratory Rate 19 Blood Pressure 136/90 104/88 Pulse Oximetry 95 01/14/21 02:56 01/14/21 03:03 01/14/21 04:00 Temperature 36.2 C L Pulse Rate 79 79 76 Respiratory Rate 22 H 22 H 22 H Blood Pressure 95/66 L Pulse Oximetry 94 95 01/14/21 05:13 01/14/21 06:00 01/14/21 06:03 Temperature Pulse Rate 89 95 95 Respiratory Rate 19 22 H Blood Pressure 100/72 Pulse Oximetry 94 86 L 01/14/21 06:04 01/14/21 06:05 01/14/21 06:08 Temperature Pulse Rate 95 95 91 Respiratory Rate 22 H Blood Pressure 100/72 Pulse Oximetry 01/14/21 08:00 01/14/21 09:10 01/14/21 09:20 Temperature 36.1 C L Pulse Rate 85 117 H 100 Respiratory Rate 22 H 22 H 22 H Blood Pressure 95/76 L Pulse Oximetry 95 96 01/14/21 09:24 01/14/21 10:00 01/14/21 10:58 Temperature Pulse Rate 104 H 112 H 133 H Respiratory Rate 22 H 22 H Blood Pressure 110/77 99/72 L Pulse Oximetry 98 01/14/21 10:59 01/14/21 11:25 01/14/21 11:30 Temperature Pulse Rate 133 H 131 H 133 H Respiratory Rate 22 H Blood Pressure 101/69 Pulse Oximetry 98 01/14/21 11:48 01/14/21 12:00 01/14/21 12:20 Temperature Pulse Rate 133 H 132 H 132 H Respiratory Rate 22 H 22 H Blood Pressure 83/68 L 88/65 L Pulse Oximetry 95 01/14/21 14:00 01/14/21 14:38 01/14/21 14:41 Temperature Pulse Rate 131 H 130 H 128 H Respiratory Rate 22 H 22 H 22 H Blood Press
[2021-01-14] MEDS: MIDAZOLAM 100MG/NS 100ML(*CRX) 100 MG/100 ML BAG 6 MG IV CONT (20:24)
[2021-01-14 23:51] LABS: Glucose Point of Care 196 mg/dl (65-105)
[2021-01-15] VITALS (53 sets, daily range): BP systolic 88–120; BP diastolic 54–75; PULSE 108–133; RESP 22; TEMP 36.6–37.6; O2SAT 93–97
[2021-01-15] MEDS: CISATRACURIUM BESYLATE 200 MG in DEXTROSE 5% 80 ML IV CONT (02:10)
[2021-01-15] MEDS: NOREPINEPHRINE 8 MG/D5W 250 ML 8 MG/250 ML BAG 30 MG IV CONT (02:37)
[2021-01-15] MEDS: LEVALBUTEROL NEB 1.25 MG/3 ML 0.63 MG INHALATION ×4 (02:54→20:31)
[2021-01-15] MEDS: IPRATROPIUM BR 0.02% INH SOLN 0.5 MG/2.5 ML VIAL INHALATION ×4 (02:54→20:32)
[2021-01-15] MEDS: FENTANYL 2,500MCG/NS250ML(*CRX 2,500 MCG/250 ML BAG 20 MCG IV CONT ×2 (03:24→16:59)
[2021-01-15 05:02] LABS: Alveolar/Arterial O2 Gradient 260.2 mmHg; Base Excess ABG -2.9 mEq/l (+/-2.0); Carboxyhemoglobin 0.3 % THb (0-2.0); Fractional Inspired Oxygen 60 %; HCO3 ABG 28.2 mEq/l (22.0-26.0); Methemoglobin ABG 0.6 %THb (0-1.5); Oxygen Content ABG 20.4 %vol (16.0-22.0); Oxygen Saturation ABG 91.5 % (95.0-100.0); Oxyhemoglobin 93.5 % THb (90.0-100.0); PO2 ABG 78.8 mmHg (80.0-100.0); PO2 FiO2 Ratio Arterial Blood 1.31 %; Reduced Hemoglobin 5.6 %THb (0-5.0); Total Hemoglobin 15.5 g/dL (12.0-18.0)
[2021-01-15 05:04] LABS: pH ABG 7.161 (7.350-7.450)
[2021-01-15 05:05] LABS: Device VENTILATOR; Modified Allen's Test Pass; PCO2 ABG 80.7 mmHg (35.0-45.0); Site Drawn RIGHT RADIAL
[2021-01-15 05:06] LABS: Arterial Blood Gas PEEP 12 cmH2O; Arterial Blood Gas Tidal Volume 340 ml; Arterial Blood Gas Vent Mode CMV; Arterial Blood Gas Ventilator rate 22 /MIN
[2021-01-15 05:51] LABS: Basophils Absolute Auto 0.1 K/mm3 (0.0-0.1); Basophils Percent Auto 0.2 % (0.2-1.2); Hematocrit 35.9 % (37.0-47.0); Hemoglobin 11.6 g/dL (12.0-15.0); Immature Granulocyte Absolute 0.83 K/mm3 (0.00-0.031); Immature Granulocyte Percent A 2.6 % (0-0.5); Lymphocytes Absolute Auto 0.75 K/mm3 (0.9-3.2); Lymphocytes Percent Auto 2.4 % (18.3-44.2); Mean Corpuscular HGB Conc 32.3 g/dl (32-36); Mean Corpuscular Hemoglobin 28.9 pg (26-34); Mean Corpuscular Volume 89.5 fl (80-100); Mean Platelet Volume 10.7 fl (7.4-10.4); Monocytes Absolute Auto 1.8 K/mm3 (0.1-0.6); Monocytes Percent Auto 5.6 % (2.6-8.5); Neutrophils Absolute Auto 28.1 K/mm3 (1.3-6.7); Neutrophils Percent Auto 89.2 % (45.5-73.1); Platelet Count Result 525 k/mm3 (150-375); Red Blood Count 4.01 M/mm3 (4.2-5.4); Red Cell Distribution Width 13.4 % (11.5-14.5); White Blood Count 31.5 K/mm3 (4.5-10.0)
[2021-01-15 06:04] LABS: Alanine Aminotransferase 62 U/L (4-35); Albumin Level 3.3 g/dL (3.5-5.1); Alkaline Phosphatase 146 U/L (38-126); Anion Gap 4 mmol/L (8-16); Aspartate Amino Transferase 45 U/L (14-36); Bilirubin,Total 0.3 mg/dL (0.2-1.3); Blood Urea Nitrogen 27 mg/dL (7-17); Calcium 9.7 mg/dL (8.4-10.2); Carbon Dioxide 33 mmol/L (22-30); Chloride 98 mmol/L (98-107); Estimated CRCL calculation 47 ml/min; Estimated Glomerular Filt Rate 56; Glucose 187 mg/dL (65-110); Magnesium 2.8 mg/dL (1.6-2.3); Potassium 4.6 mmol/L (3.4-5.0); Sodium 135 mmol/L (137-145)
[2021-01-15] MEDS: CENTRAL LINE FLUSH 10 ML IV PUSH ×3 (06:05→20:17)
[2021-01-15] MEDS: methylPREDNISolone SOD SUCC 40 MG VIAL IV PUSH ×2 (06:06→17:06)
[2021-01-15] MEDS: BUDESONIDE RESPULE NEB 0.5 MG/2 ML AMP INHALATION ×2 (08:57→20:32)
[2021-01-15] MEDS: SODIUM CHLORIDE 0.9% IV 1,000 ML 999 ML IV CONT (09:04)
[2021-01-15] MEDS: SODIUM BICARBONATE 8.4% 50 MEQ/50 ML SYRINGE 100 MEQ IV PUSH (09:04)
[2021-01-15] MEDS: ASCORBIC ACID 500 MG TABLET 1000 MG PO ×2 (09:11→17:06)
[2021-01-15] MEDS: BARICITINIB 2 MG TABLET 4 MG PO (09:11)
[2021-01-15] MEDS: SACCHAROMYCES BOULARDII 250 MG CAPSULE PO ×2 (09:12→17:06)
[2021-01-15] MEDS: FAMOTIDINE 20 MG/2 ML VIAL IV PUSH ×2 (09:12→20:16)
[2021-01-15] MEDS: CHOLECALCIFEROL 1,000 UNITS TABLET 2000 UNITS BY MOUTH (09:12)
[2021-01-15] MEDS: ZINC SULFATE 220 MG CAPSULE PO ×2 (09:12→17:06)
[2021-01-15] MEDS: MINERAL OIL/WHITE PETROLATUM OINTMENT 1 APPLIC EACH EYE ×2 (09:12→20:16)
[2021-01-15] MEDS: ENOXAPARIN 40 MG/0.4 ML SYRINGE SUB-Q (09:13)
--- NOTE | 2021-01-15 09:22 | WPDINTPN ---
Progress Note: A&P Assessment and Plan (1) Acute respiratory failure with hypoxia: Code(s): J96.01 - Acute respiratory failure with hypoxia Status: Acute Assessment and Plan: Acute hypoxic respiratory failure secondary to COVID-19 pneumonia. Over the course she has developed increasing oxygen requirements, transferred to the ICU on 01/12/2021 -was on BiPAP 03/30 and 100%. Intubated 01/13 -ABG reviewed. Will tolerate permissive hypercapnia to high pressures. Tidal volume decreased to 340. FiO2 is at 60% PEEP to 12 -chest x-ray reviewed and will advance ET tube by 3 cm -will start patient on neuromuscular miles for better ventilator synchrony and place patient in prone position as tolerated -ordered bronchodilators and Pulmicort -continue Versed and fentanyl infusion -daily prone positioning for 12 hours as tolerated (2) Pneumonia due to COVID-19 virus: Code(s): U07.1 - COVID-19; J12.82 - Pneumonia due to coronavirus disease 2019 Status: Acute Assessment and Plan: Patient tested positive for COVID on 12/25/2020. Patient is unvaccinated -she is status post Remdesivir, dexamethasone -status post azithromycin and ceftriaxone -currently on Baricitinib for 14 days -she is on Solu-Medrol -on vitamin-C, vitamin-D and zinc. Patient also on melatonin, -at home patient was also taking hydroxychloroquine -patient's was demanding to start method of prednisolone, nitazoxanide, fluvoxamine, cyproheptadine, famotidine -continue airborne, droplet, contact isolation precaution -inflammatory markers continue to be high (3) DVT prophylaxis: Code(s): Z29.9 - Encounter for prophylactic measures, unspecified Status: Acute Assessment and Plan: Lovenox SQ (4) Pneumomediastinum: Code(s): J98.2 - Interstitial emphysema Status: Acute Assessment and Plan: Small area suggestive of new mediastinum on chest x-ray today likely secondary to noninvasive positive pressure ventilation Continue to monitor at this time (5) Pneumothorax on right: Onset Date: ~01/14/21 Code(s): J93.9 - Pneumothorax, unspecified Status: Acute Assessment and Plan: Status post chest tube placement by General surgery Chest tube is on suction No air leak at this time (6) Acidosis: Code(s): E87.2 - Acidosis Status: Acute Assessment and Plan: Respiratory acidosis secondary to permissive hypercapnia Will give 2 amps of bicarb (7) Shock: Code(s): R57.9 - Shock, unspecified Status: Acute Assessment and Plan: Likely secondary to sedation and hypovolemia Will give 1 L bolus Continue Levophed (8) Leukocytosis: Code(s): D72.829 - Elevated white blood cell count, unspecified Status: Acute Assessment and Plan: Likely secondary to steroid Patient is afebrile She has completed a course of Rocephin azithromycin Will repeat cultures if patient becomes febrile Additional Plan DVT prophylaxis -Lovenox subQ Stress ulcer prophylaxis -Pepcid IV Nutrition -continue Tube Feeds. Norman added Code Status - Full Code 01/14 I called and spoke to ECMO team at [facility]. Discussed case with Dr. Devlin. Recommended continuing to optimize mechanical ventilation and current treatment before evaluation for ECMO in next couple of days. Told me that they do not have bed at this point but would be open to taking her depending on her course in next few days and in case the bed becomes available. Critical care time spent: 32 minute This dictation may have been done utilizing a voice recognition system. Attempts have been made to correct errors. However, there may be uncorrected grammatical, spelling, and recognition errors present. Due to a high probability of clinically significant, life threatening deterioration, the patient required my highest level of preparedness to intervene emergently and I personally spent this critical care time dire
--- NOTE | 2021-01-15 12:00 | PCDIET ---
ICU Rounding Note: Tube feedings held for residual of 400mL overnight. Reglan started. Vital 1.2 resumed at 20mL/hr with 150mL residual on last check. Last recorded weight is 73.3kg which is up from last review. Bowel Motility: Last documented BM on 01/11/21 x 2. Labs Reviewed: WBC (3.15), RBC (4.01), Hgb (11.6), Hct (35.9), Glu (187), BUN (27), Na (135), Alb (3.3), Mg (2.8) Meds Noted: Florastor, Vitamin B Complex, Xopenex, Solu Medrol, Vitamin C, Olumiant, Pulmicort, Reglan, Versed, Levophed, Nimbex, Pepcid, Fentanyl, Novolog, Atrovent, Vitamin D, Zinc Sulfate Additional Notes: No documented skin breakdown. Following daily in ICU rounds. Assessing/reassessing every Tuesday/Tuesday.
[2021-01-15] MEDS: METOCLOPRAMIDE HCL 10 MG/10 ML SOLN UDC PO ×3 (12:18→23:57)
[2021-01-15] MEDS: VITAMIN B COMPLEX/VIT C CAPSULE 1 EACH PO (12:18)
[2021-01-15] MEDS: MIDAZOLAM 100MG/NS 100ML(*CRX) 100 MG/100 ML BAG 6 MG IV CONT (12:35)
[2021-01-15] MEDS: NOREPINEPHRINE 8 MG/D5W 250 ML 8 MG/250 ML BAG 11.25 MG IV CONT (12:37)
[2021-01-15 12:58] LABS: Glucose Point of Care 193 mg/dl (65-105)
[2021-01-15 16:08] LABS: Alveolar/Arterial O2 Gradient 255.3 mmHg; Base Excess ABG 7.7 mEq/l (+/-2.0); Fractional Inspired Oxygen 60 %; HCO3 ABG 36.1 mEq/l (22.0-26.0); Oxygen Content ABG 14.9 %vol (16.0-22.0); Oxygen Saturation ABG 95.8 % (95.0-100.0); Oxyhemoglobin 95.5 % THb (90.0-100.0); PO2 ABG 90.7 mmHg (80.0-100.0); PO2 FiO2 Ratio Arterial Blood 1.51 %; pH ABG 7.304 (7.350-7.450)
[2021-01-15 16:11] LABS: Device VENTILATOR; Modified Allen's Test Pass; PCO2 ABG 74.4 mmHg (35.0-45.0); Site Drawn RIGHT RADIAL
[2021-01-15 16:12] LABS: Arterial Blood Gas PEEP 12 cmH2O; Arterial Blood Gas Tidal Volume 340 ml; Arterial Blood Gas Vent Mode CMV; Arterial Blood Gas Ventilator rate 22 /MIN
[2021-01-15 17:35] LABS: Glucose Point of Care 177 mg/dl (65-105)
--- NOTE | 2021-01-15 17:59 | PM.IMPN ---
Progress Note: A&P Assessment and Plan (1) Acute respiratory failure with hypoxia: Code(s): J96.01 - Acute respiratory failure with hypoxia Status: Acute Assessment and Plan: Patient with acute respiratory failure secondary to COVID pneumonia. CTA of the chest 12/30 showing no central pulmonary embolus identified (sensitivity limited by motion artifact) and patchy bilateral airspace opacities have pattern consistent with COVID 19 pneumonia. Oxygen requirement worsened requiring intubation on 01/13 despite standard medical treatment. She remains intubated, sedated and paralyzed. Appreciate sanding line operator input. (2) Shock: Code(s): R57.9 - Shock, unspecified Status: Acute Assessment and Plan: Pateint hypotensive felt related to sedation and hypovlemia. IV fluid given. Continue Levophed adn wean as blood pressure allows. BCx 01/10 NGTD. Off all abx., (3) Pneumothorax on right: Onset Date: ~01/14/21 Code(s): J93.9 - Pneumothorax, unspecified Status: Acute Assessment and Plan: Patietn with PTX on the right with CT in place. Management per general surgery. (4) Pneumomediastinum: Code(s): J98.2 - Interstitial emphysema Status: Acute Assessment and Plan: Patient now with evidence of pneumomediastinum. Monitor for further instability. Daily CXR. (5) Pneumonia due to COVID-19 virus: Code(s): U07.1 - COVID-19; J12.82 - Pneumonia due to coronavirus disease 2019 Status: Acute Assessment and Plan: Patient did not receive a COVID vaccination. She was exposed to an individual who was COVID positive. She did come in on hydroxychloroquine, zinc, vitamin-C and D from home. She began to have symptoms around 12/24/20. She was COVID positive (rapid) on 12/25/20 when in the ED. Returned to ED on 12/30 for worsening symtpms and was admitted. She has since completed Dexamethasone. Completed Baricitinib 4mg PO daily x 14 days. Convalescent plasma given 01/04/21. Vit C,D, and zinc are on-board. Lasix 40mg IV daily x 3 doses given 01/03/21. Completed a course of Azithromycein as well. demanded that his be treated with Solu-Medrol, Vit C and Ivermectin. Explained that Ivermectin was not standard of care but we did proceed with the other treatment. She remains on Solu-Medrol, Xopenex/Atrovent, Pulmicort, VitC/Zinc/Vit D. (6) Acute respiratory acidosis: Code(s): E87.2 - Acidosis Status: Acute Assessment and Plan: pCO2 80 with pH 7.16. As above (7) Transaminitis: Code(s): R74.01 - Elevation of levels of liver transaminase levels Status: Acute Assessment and Plan: Liver enzymes elevated on admission felt secondary to COVID. Hepatitis panel negative. Levels normalized but have increased today felt related to the respiratory acidosis. Continue to moniotr (8) Hyponatremia: Code(s): E87.1 - Hypo-osmolality and hyponatremia Status: Acute Assessment and Plan: Sodium low on admission and has mostly remained stable in the low 130's. Follow. (9) Gastroesophageal reflux disease: Code(s): K21.9 - Gastro-esophageal reflux disease without esophagitis Status: Acute Assessment and Plan: Stable. Continue pepcid (10) DVT prophylaxis: Code(s): Z29.9 - Encounter for prophylactic measures, unspecified Status: Acute Assessment and Plan: Lovenox Subjective Date/time seen: 01/15/21 17:59 Interval history: 60yo female healthy female who presents to the ED with complaints of syncope. She was exposed to a COVID positive patient. She called the online frontline doctor care and was prescribed zinc, vitamin C, hydrochloroquine and was taking these medications on admission. She is unvaccinated. She had worsening hypoxia requiring intubation 01/13. Assuming care. Chart reviewed. Patient is currently intubated, sedated and paralyzed. Received 2 amps of bicarb an
[2021-01-15] MEDS: CISATRACURIUM BESYLATE 200 MG in DEXTROSE 5% 80 ML 6.99 ML IV CONT (22:03)
[2021-01-16] VITALS (40 sets, daily range): BP systolic 84–110; BP diastolic 51–74; PULSE 85–126; RESP 22; TEMP 35.9–37.1; O2SAT 90–98
[2021-01-16 00:33] LABS: Glucose Point of Care 172 mg/dl (65-105)
[2021-01-16] MEDS: IPRATROPIUM BR 0.02% INH SOLN 0.5 MG/2.5 ML VIAL INHALATION ×4 (02:52→20:09)
[2021-01-16] MEDS: LEVALBUTEROL NEB 1.25 MG/3 ML 0.63 MG INHALATION ×4 (02:52→20:10)
[2021-01-16] MEDS: MIDAZOLAM 100MG/NS 100ML(*CRX) 100 MG/100 ML BAG 7 MG IV CONT ×2 (03:49→17:49)
[2021-01-16] MEDS: FENTANYL 2,500MCG/NS250ML(*CRX 2,500 MCG/250 ML BAG 20 MCG IV CONT ×2 (05:36→19:18)
[2021-01-16] MEDS: CENTRAL LINE FLUSH 10 ML IV PUSH ×3 (05:38→20:48)
[2021-01-16] MEDS: methylPREDNISolone SOD SUCC 40 MG VIAL IV PUSH ×2 (05:38→17:52)
[2021-01-16] MEDS: METOCLOPRAMIDE HCL 10 MG/10 ML SOLN UDC PO ×3 (05:38→17:52)
[2021-01-16 05:54] LABS: Base Excess ABG 6.2 mEq/l (+/-2.0); Carboxyhemoglobin 0.3 % THb (0-2.0); Fractional Inspired Oxygen 60 %; HCO3 ABG 35.1 mEq/l (22.0-26.0); Methemoglobin ABG 0.5 %THb (0-1.5); Oxygen Content ABG 16.8 %vol (16.0-22.0); Oxygen Saturation ABG 96.8 % (95.0-100.0); Oxyhemoglobin 96.1 % THb (90.0-100.0); PO2 ABG 102.6 mmHg (80.0-100.0); PO2 FiO2 Ratio Arterial Blood 1.71 %; Reduced Hemoglobin 3.1 %THb (0-5.0); Total Hemoglobin 12.3 g/dL (12.0-18.0)
[2021-01-16 05:56] LABS: PCO2 ABG 74.7 mmHg (35.0-45.0)
[2021-01-16 05:57] LABS: Arterial Blood Gas PEEP 12 cmH2O; Arterial Blood Gas Vent Mode CMV; Arterial Blood Gas Ventilator rate 22 /MIN; Device VENTILATOR; Modified Allen's Test Pass; Site Drawn LEFT RADIAL
[2021-01-16 05:58] LABS: Arterial Blood Gas Tidal Volume 340 ml
[2021-01-16 06:00] LABS: Hematocrit 29.6 % (37.0-47.0); Hemoglobin 9.2 g/dL (12.0-15.0); Mean Corpuscular HGB Conc 31.1 g/dl (32-36); Mean Corpuscular Hemoglobin 28.1 pg (26-34); Mean Corpuscular Volume 90.5 fl (80-100); Mean Platelet Volume 10.4 fl (7.4-10.4); Platelet Count Result 243 k/mm3 (150-375); Red Blood Count 3.27 M/mm3 (4.2-5.4); Red Cell Distribution Width 13.3 % (11.5-14.5)
[2021-01-16 06:13] LABS: Alanine Aminotransferase 91 U/L (4-35); Albumin Level 2.8 g/dL (3.5-5.1); Alkaline Phosphatase 147 U/L (38-126); Aspartate Amino Transferase 52 U/L (14-36); Bilirubin,Total 0.1 mg/dL (0.2-1.3); Blood Urea Nitrogen 22 mg/dL (7-17); Calcium 8.8 mg/dL (8.4-10.2); Carbon Dioxide > 40 mmol/L (22-30); Chloride 97 mmol/L (98-107); Estimated CRCL calculation 69 ml/min; Estimated Glomerular Filt Rate > 60; Glucose 186 mg/dL (65-110); Magnesium 2.8 mg/dL (1.6-2.3); Potassium 4.5 mmol/L (3.4-5.0); Sodium 138 mmol/L (137-145)
[2021-01-16] MEDS: BUDESONIDE RESPULE NEB 0.5 MG/2 ML AMP INHALATION ×2 (08:07→20:09)
[2021-01-16] MEDS: VITAMIN B COMPLEX/VIT C CAPSULE 1 EACH PO (08:37)
[2021-01-16] MEDS: SACCHAROMYCES BOULARDII 250 MG CAPSULE PO ×2 (08:37→16:36)
[2021-01-16] MEDS: ENOXAPARIN 40 MG/0.4 ML SYRINGE SUB-Q (08:37)
[2021-01-16] MEDS: CHOLECALCIFEROL 1,000 UNITS TABLET 2000 UNITS BY MOUTH (08:38)
[2021-01-16] MEDS: FAMOTIDINE 20 MG/2 ML VIAL IV PUSH ×2 (08:38→20:48)
[2021-01-16] MEDS: ZINC SULFATE 220 MG CAPSULE PO ×2 (08:38→16:36)
[2021-01-16] MEDS: MINERAL OIL/WHITE PETROLATUM OINTMENT 1 APPLIC EACH EYE ×2 (08:39→20:48)
[2021-01-16] MEDS: ASCORBIC ACID 500 MG TABLET 1000 MG PO ×2 (08:39→16:36)
--- NOTE | 2021-01-16 08:41 | PM.IMPN ---
Progress Note: A&P Assessment and Plan (1) Acute respiratory failure with hypoxia: Code(s): J96.01 - Acute respiratory failure with hypoxia Status: Acute Assessment and Plan: Patient with acute respiratory failure secondary to COVID pneumonia. CTA of the chest 12/30 showing no central pulmonary embolus identified (sensitivity limited by motion artifact) and patchy bilateral airspace opacities have pattern consistent with COVID 19 pneumonia. Oxygen requirement worsened requiring intubation on 01/13 despite standard medical treatment. She remains intubated, sedated and paralyzed. Adjust vent settings to improve acidosis. Appreciate patient assessment coordinator input. (2) Shock: Code(s): R57.9 - Shock, unspecified Status: Acute Assessment and Plan: Patient became hypotensive on 01/14 requiring Levophed. Hypotension felt related to sedation and hypovolemia. IV fluid given. BCx 01/10 NGTD. Off all abx. Able to be weaned off Levophed 01/15. (3) Pneumothorax on right: Onset Date: ~01/14/21 Code(s): J93.9 - Pneumothorax, unspecified Status: Acute Assessment and Plan: Patietn with PTX on the right with CT in place. Management per general surgery. Repeat CXR pending. (4) Pneumomediastinum: Code(s): J98.2 - Interstitial emphysema Status: Acute Assessment and Plan: Patient now with evidence of pneumomediastinum. Monitor for instability. Daily CXR. CXR pending from today. (5) Pneumonia due to COVID-19 virus: Code(s): U07.1 - COVID-19; J12.82 - Pneumonia due to coronavirus disease 2019 Status: Acute Assessment and Plan: Patient did not receive a COVID vaccination. She was exposed to an individual who was COVID positive. She did come in on hydroxychloroquine, zinc, vitamin-C and D from home. She began to have symptoms around 12/24/20. She was COVID positive (rapid) on 12/25/20 when in the ED. Returned to ED on 12/30 for worsening symtpms and was admitted. She has since completed Dexamethasone. Completed Baricitinib 4mg PO daily x 14 days. Convalescent plasma given 01/04/21. Vit C,D, and zinc are on-board. Lasix 40mg IV daily x 3 doses given 01/03/21. Completed a course of Azithromycein as well. demanded that his be treated with Solu-Medrol, Vit C and Ivermectin. Explained that Ivermectin was not standard of care but we did proceed with the other treatment. She remains on Solu-Medrol, Xopenex/Atrovent, Pulmicort, VitC/Zinc/Vit D. Continue supportive care. (6) Acute respiratory acidosis: Code(s): E87.2 - Acidosis Status: Acute Assessment and Plan: pCO2 75 with pH 7.29 and serum bicarb 40. Numbers do not quite fit to suggest metabolic process as well. As above. (7) Transaminitis: Code(s): R74.01 - Elevation of levels of liver transaminase levels Status: Acute Assessment and Plan: Liver enzymes elevated on admission felt secondary to COVID. Hepatitis panel negative. Levels normalized but increased yesterday and worse today possibly related to the respiratory acidosis. Continue to monitor (8) Hyponatremia: Code(s): E87.1 - Hypo-osmolality and hyponatremia Status: Acute Assessment and Plan: Sodium low on admission and has mostly remained stable in the low 130's. Na normal today at 138. Follow. (9) Gastroesophageal reflux disease: Code(s): K21.9 - Gastro-esophageal reflux disease without esophagitis Status: Acute Assessment and Plan: Stable. Continue pepcid (10) DVT prophylaxis: Code(s): Z29.9 - Encounter for prophylactic measures, unspecified Status: Acute Assessment and Plan: Lovenox Subjective Date/time seen: 01/16/21 08:41 Interval history: 60yo female healthy female who presents to the ED with complaints of syncope. She was exposed to a COVID positive patient. She called the online frontline doctor care and was prescribed zinc, vitamin
--- NOTE | 2021-01-16 09:22 | PC.NURSE ---
Updated daughter, Reigna, on patient condition.
--- NOTE | 2021-01-16 09:36 | WPDINTPN ---
Progress Note: A&P Assessment and Plan (1) Acute respiratory failure with hypoxia: Code(s): J96.01 - Acute respiratory failure with hypoxia Status: Acute Assessment and Plan: Acute hypoxic respiratory failure secondary to COVID-19 pneumonia. Over the course she has developed increasing oxygen requirements, transferred to the ICU on 01/12/2021 -was on BiPAP / and 100%. Intubated 01/13 -ABG reviewed. Will tolerate permissive hypercapnia to high pressures. Tidal volume is at 340. FiO2 is at 60% PEEP is at 12. I will drop PEEP to 10 if patient maintains saturation in supine position -chest x-ray pending -continue neuromuscular miles for better ventilator synchrony -ordered bronchodilators and Pulmicort -continue Versed and fentanyl infusion -daily prone positioning for 18 hours as tolerated (2) Pneumonia due to COVID-19 virus: Code(s): U07.1 - COVID-19; J12.82 - Pneumonia due to coronavirus disease 2019 Status: Acute Assessment and Plan: Patient tested positive for COVID on 12/25/2020. Patient is unvaccinated -she is status post Remdesivir, dexamethasone -status post azithromycin and ceftriaxone -currently on Baricitinib for 14 days -she is on Solu-Medrol -on vitamin-C, vitamin-D and zinc. Patient also on melatonin, -at home patient was also taking hydroxychloroquine -patient's was demanding to start method of prednisolone, nitazoxanide, fluvoxamine, cyproheptadine, famotidine -continue airborne, droplet, contact isolation precaution -inflammatory markers continue to be high (3) DVT prophylaxis: Code(s): Z29.9 - Encounter for prophylactic measures, unspecified Status: Acute Assessment and Plan: Lovenox SQ (4) Pneumomediastinum: Code(s): J98.2 - Interstitial emphysema Status: Acute Assessment and Plan: Small area suggestive of new mediastinum on chest x-ray today likely secondary to noninvasive positive pressure ventilation Continue to monitor at this time (5) Pneumothorax on right: Onset Date: ~01/14/21 Code(s): J93.9 - Pneumothorax, unspecified Status: Acute Assessment and Plan: Status post chest tube placement by General surgery Chest tube is on suction No air leak at this time (6) Acidosis: Code(s): E87.2 - Acidosis Status: Acute Assessment and Plan: Respiratory acidosis secondary to permissive hypercapnia (7) Shock: Code(s): R57.9 - Shock, unspecified Status: Acute Assessment and Plan: Likely secondary to sedation and hypovolemia Off Levophed at this time (8) Leukocytosis: Code(s): D72.829 - Elevated white blood cell count, unspecified Status: Acute Assessment and Plan: Likely secondary to steroid and is improving Patient is afebrile She has completed a course of Rocephin azithromycin Will repeat cultures if patient becomes febrile Additional Plan DVT prophylaxis -Lovenox subQ Stress ulcer prophylaxis -Pepcid IV Nutrition -continue Tube Feeds. Norman added Code Status - Full Code Critical care time spent: 31 minute This dictation may have been done utilizing a voice recognition system. Attempts have been made to correct errors. However, there may be uncorrected grammatical, spelling, and recognition errors present. Due to a high probability of clinically significant, life threatening deterioration, the patient required my highest level of preparedness to intervene emergently and I personally spent this critical care time directly and personally managing the patient. This critical care time included obtaining a history; examining the patient; pulse oximetry; ordering and review of studies; arranging urgent treatment with development of a management plan; evaluation of patient's response to treatment; frequent reassessment; and discussions with other providers. It was exclusive of separately billable procedures and treating other patients and tea
--- NOTE | 2021-01-16 11:19 | PCDIET ---
Nutrition Follow-Up Complete: Nutrition Diagnosis: Suboptimal oral intake related to COVID as evidenced by average intake of 65% of recorded meals over last week with inability to eat breakfast today. Nutrition Goal: Patient to meet estimated nutritional needs. Goal met. Patient tolerating Vital 1.2 at 50mL/hr goal rate with 30mL water flush every 4 hours. Last recorded weight is 74.4 kg which is increased from last review. Bowel Motility: Last documented BM on 01/11/21. RN to give prn medication today. Labs Reviewed: WBC (13.0), RBC (3.27), Hgb (9.2), Hct (29.6), Glu (186), BUN (22), Alb (2.8), Mg (2.8) Meds Noted: Pepcid, Fentanyl, Vitamin C, Pulmicort, Novolog, Atrovent, Xopenex, Solu Medrol, Reglan, Versed, Levophed, Florastor, Allbee W/C, Vitamin D, Zinc Sulfate, Miralax, Dulcolax Additional Notes: No documented skin breakdown. Will continue to monitor with same goal. Nutrition Monitoring and Evaluation: Follow up every Tuesday/Tuesday.
[2021-01-16 11:46] LABS: Glucose Point of Care 169 mg/dl (65-105)
[2021-01-16] MEDS: BISACODYL 10 MG SUPPOSITORY RECTAL (12:00)
[2021-01-16] MEDS: polyethylene glycoL 3350 17 GM POWD.PACK PO (12:00)
[2021-01-16] MEDS: CISATRACURIUM BESYLATE 200 MG in DEXTROSE 5% 80 ML 5.99 ML IV CONT (14:32)
[2021-01-16 18:21] LABS: Glucose Point of Care 151 mg/dl (65-105)
[2021-01-17] VITALS (36 sets, daily range): BP systolic 92–137; BP diastolic 60–83; PULSE 88–134; RESP 22; TEMP 36.6–37.3; O2SAT 87–96
[2021-01-17] MEDS: METOCLOPRAMIDE HCL 10 MG/10 ML SOLN UDC PO ×5 (01:09→23:32)
[2021-01-17 01:33] LABS: Glucose Point of Care 146 mg/dl (65-105)
[2021-01-17] MEDS: IPRATROPIUM BR 0.02% INH SOLN 0.5 MG/2.5 ML VIAL INHALATION ×4 (02:20→20:59)
[2021-01-17] MEDS: LEVALBUTEROL NEB 1.25 MG/3 ML 0.63 MG INHALATION ×4 (02:20→20:58)
[2021-01-17 04:10] LABS: Alveolar/Arterial O2 Gradient 217.2 mmHg; Base Excess ABG 11.1 mEq/l (+/-2.0); Carboxyhemoglobin 0.2 % THb (0-2.0); Fractional Inspired Oxygen 50 %; HCO3 ABG 38.3 mEq/l (22.0-26.0); Methemoglobin ABG 0.5 %THb (0-1.5); Oxygen Content ABG 13.4 %vol (16.0-22.0); Oxygen Saturation ABG 91.5 % (95.0-100.0); Oxyhemoglobin 92.3 % THb (90.0-100.0); PO2 ABG 64.7 mmHg (80.0-100.0); PO2 FiO2 Ratio Arterial Blood 1.29 %; Total Hemoglobin 10.3 g/dL (12.0-18.0); pH ABG 7.379 (7.350-7.450)
[2021-01-17 04:13] LABS: Device VENTILATOR; Modified Allen's Test Pass; PCO2 ABG 66.3 mmHg (35.0-45.0); Site Drawn LEFT RADIAL
[2021-01-17 04:14] LABS: Arterial Blood Gas Vent Mode CMV; Arterial Blood Gas Ventilator rate 22 /MIN
[2021-01-17 04:15] LABS: Arterial Blood Gas PEEP 10 cmH2O; Arterial Blood Gas Tidal Volume 340 ml
[2021-01-17] MEDS: CISATRACURIUM BESYLATE 200 MG in DEXTROSE 5% 80 ML 7.99 ML IV CONT ×2 (05:13→17:34)
[2021-01-17] MEDS: CENTRAL LINE FLUSH 10 ML IV PUSH ×3 (05:14→20:49)
[2021-01-17] MEDS: methylPREDNISolone SOD SUCC 40 MG VIAL IV PUSH ×2 (05:15→17:16)
[2021-01-17 05:49] LABS: Hematocrit 29.5 % (37.0-47.0); Hemoglobin 9.3 g/dL (12.0-15.0); Mean Corpuscular HGB Conc 31.5 g/dl (32-36); Mean Corpuscular Hemoglobin 28.5 pg (26-34); Mean Corpuscular Volume 90.5 fl (80-100); Mean Platelet Volume 11.2 fl (7.4-10.4); Platelet Count Result 224 k/mm3 (150-375); Red Blood Count 3.26 M/mm3 (4.2-5.4); Red Cell Distribution Width 13.3 % (11.5-14.5); White Blood Count 18.3 K/mm3 (4.5-10.0)
[2021-01-17 07:06] LABS: Alanine Aminotransferase 150 U/L (4-35); Albumin Level 2.9 g/dL (3.5-5.1); Alkaline Phosphatase 146 U/L (38-126); Aspartate Amino Transferase 67 U/L (14-36); Bilirubin,Total 0.3 mg/dL (0.2-1.3); Blood Urea Nitrogen 30 mg/dL (7-17); Calcium 9.1 mg/dL (8.4-10.2); Carbon Dioxide > 40 mmol/L (22-30); Chloride 94 mmol/L (98-107); Estimated CRCL calculation 93 ml/min; Estimated Glomerular Filt Rate > 60; Glucose 165 mg/dL (65-110); Magnesium 2.7 mg/dL (1.6-2.3); Potassium 5.1 mmol/L (3.4-5.0); Sodium 136 mmol/L (137-145)
--- NOTE | 2021-01-17 07:22 | PM.IMPN ---
Progress Note: A&P Assessment and Plan (1) Acute respiratory failure with hypoxia: Code(s): J96.01 - Acute respiratory failure with hypoxia Status: Acute Assessment and Plan: Acute hypoxic respiratory failure secondary to COVID-19 pneumonia. Over the course she has developed increasing oxygen requirements, transferred to the ICU on 01/12/2021 -was on BiPAP / and 100%. Intubated 01/13 -ABG reviewed. Will tolerate permissive hypercapnia to high pressures. Tidal volume is at 340. FiO2 is at 50% PEEP is at 10. -patient was placed in prone position overnight and will be switched to supine this morning. if patient maintains saturation in supine position with no further oxygen requirement will re-evaluate continued need for prone ventilation -chest x-ray reviewed -continue neuromuscular miles for better ventilator synchrony -ordered bronchodilators and Pulmicort -continue Versed and fentanyl infusion (2) Pneumonia due to COVID-19 virus: Code(s): U07.1 - COVID-19; J12.82 - Pneumonia due to coronavirus disease 2019 Status: Acute Assessment and Plan: Patient tested positive for COVID on 12/25/2020. Patient is unvaccinated -she is status post Remdesivir, dexamethasone -status post azithromycin and ceftriaxone -currently on Baricitinib for 14 days -she is on Solu-Medrol -on vitamin-C, vitamin-D and zinc. Patient also on melatonin, -at home patient was also taking hydroxychloroquine -patient's was demanding to start method of prednisolone, nitazoxanide, fluvoxamine, cyproheptadine, famotidine -continue airborne, droplet, contact isolation precaution -inflammatory markers continue to be high (3) DVT prophylaxis: Code(s): Z29.9 - Encounter for prophylactic measures, unspecified Status: Acute Assessment and Plan: Lovenox SQ (4) Pneumomediastinum: Code(s): J98.2 - Interstitial emphysema Status: Acute Assessment and Plan: Small area suggestive of new mediastinum on chest x-ray today likely secondary to noninvasive positive pressure ventilation Continue to monitor at this time (5) Pneumothorax on right: Onset Date: ~01/14/21 Code(s): J93.9 - Pneumothorax, unspecified Status: Acute Assessment and Plan: Status post chest tube placement by General surgery Chest tube is on suction No air leak at this time (6) Acidosis: Code(s): E87.2 - Acidosis Status: Acute Assessment and Plan: Respiratory acidosis secondary to permissive hypercapnia Improved (7) Shock: Code(s): R57.9 - Shock, unspecified Status: Acute Assessment and Plan: Likely secondary to sedation and hypovolemia Off Levophed at this time (8) Leukocytosis: Code(s): D72.829 - Elevated white blood cell count, unspecified Status: Acute Assessment and Plan: Likely secondary to steroid and is improving Patient is afebrile She has completed a course of Rocephin azithromycin Will repeat cultures if patient becomes febrile (9) Hyperkalemia: Code(s): E87.5 - Hyperkalemia Status: Acute Assessment and Plan: Mild with K of 5.1. Will give dose of Kayexalate Additional Plan 01/17/2021 DVT prophylaxis -Lovenox subQ Stress ulcer prophylaxis -Pepcid IV Nutrition -continue Tube Feeds. Reglan added Code Status - Full Code Will continue with ventilation support. Monitor labs x-ray and electrolytes. Subjective Date/time seen: 01/17/21 07:22 Interval history: 60yo female healthy female who presents to the ED with complaints of syncope. She was exposed to a COVID positive patient. She called the online frontline doctor care and was prescribed zinc, vitamin C, hydrochloroquine and was taking these medications on admission. She is unvaccinated. She had worsening hypoxia requiring intubation 01/13. 01/17/2021 Patient was seen during the morning rounds today. Patient is intubated and sedated. Prone ventilat
--- NOTE | 2021-01-17 08:38 | WPDINTPN ---
Progress Note: A&P Assessment and Plan (1) Acute respiratory failure with hypoxia: Code(s): J96.01 - Acute respiratory failure with hypoxia Status: Acute Assessment and Plan: Acute hypoxic respiratory failure secondary to COVID-19 pneumonia. Over the course she has developed increasing oxygen requirements, transferred to the ICU on 01/12/2021 -was on BiPAP / and 100%. Intubated 01/13 -ABG reviewed. Will tolerate permissive hypercapnia to high pressures. Tidal volume is at 340. FiO2 is at 50% PEEP is at 10. -patient was placed in prone position overnight and will be switched to supine this morning. if patient maintains saturation in supine position with no further oxygen requirement will re-evaluate continued need for prone ventilation -chest x-ray reviewed -continue neuromuscular miles for better ventilator synchrony -ordered bronchodilators and Pulmicort -continue Versed and fentanyl infusion (2) Pneumonia due to COVID-19 virus: Code(s): U07.1 - COVID-19; J12.82 - Pneumonia due to coronavirus disease 2019 Status: Acute Assessment and Plan: Patient tested positive for COVID on 12/25/2020. Patient is unvaccinated -she is status post Remdesivir, dexamethasone -status post azithromycin and ceftriaxone -currently on Baricitinib for 14 days -she is on Solu-Medrol -on vitamin-C, vitamin-D and zinc. Patient also on melatonin, -at home patient was also taking hydroxychloroquine -patient's was demanding to start method of prednisolone, nitazoxanide, fluvoxamine, cyproheptadine, famotidine -continue airborne, droplet, contact isolation precaution -inflammatory markers continue to be high (3) DVT prophylaxis: Code(s): Z29.9 - Encounter for prophylactic measures, unspecified Status: Acute Assessment and Plan: Lovenox SQ (4) Pneumomediastinum: Code(s): J98.2 - Interstitial emphysema Status: Acute Assessment and Plan: Small area suggestive of new mediastinum on chest x-ray today likely secondary to noninvasive positive pressure ventilation Continue to monitor at this time (5) Pneumothorax on right: Onset Date: ~01/14/21 Code(s): J93.9 - Pneumothorax, unspecified Status: Acute Assessment and Plan: Status post chest tube placement by General surgery Chest tube is on suction No air leak at this time (6) Acidosis: Code(s): E87.2 - Acidosis Status: Acute Assessment and Plan: Respiratory acidosis secondary to permissive hypercapnia Improved (7) Shock: Code(s): R57.9 - Shock, unspecified Status: Acute Assessment and Plan: Likely secondary to sedation and hypovolemia Off Levophed at this time (8) Leukocytosis: Code(s): D72.829 - Elevated white blood cell count, unspecified Status: Acute Assessment and Plan: Likely secondary to steroid and is improving Patient is afebrile She has completed a course of Rocephin azithromycin Will repeat cultures if patient becomes febrile (9) Hyperkalemia: Code(s): E87.5 - Hyperkalemia Status: Acute Assessment and Plan: Mild with K of 5.1. Will give dose of Kayexalate Additional Plan DVT prophylaxis -Lovenox subQ Stress ulcer prophylaxis -Pepcid IV Nutrition -continue Tube Feeds. Norman added Code Status - Full Code Critical care time spent: 31 minute This dictation may have been done utilizing a voice recognition system. Attempts have been made to correct errors. However, there may be uncorrected grammatical, spelling, and recognition errors present. Due to a high probability of clinically significant, life threatening deterioration, the patient required my highest level of preparedness to intervene emergently and I personally spent this critical care time directly and personally managing the patient. This critical care time included obtaining a history; examining the patient; pulse oximetry; ordering and
[2021-01-17] MEDS: BUDESONIDE RESPULE NEB 0.5 MG/2 ML AMP INHALATION ×2 (08:54→20:59)
[2021-01-17] MEDS: FENTANYL 2,500MCG/NS250ML(*CRX 2,500 MCG/250 ML BAG 20 MCG IV CONT ×2 (09:12→20:52)
[2021-01-17] MEDS: MIDAZOLAM 100MG/NS 100ML(*CRX) 100 MG/100 ML BAG 8 MG IV CONT ×2 (09:13→20:46)
[2021-01-17] MEDS: SODIUM CHLORIDE 0.9% IV 1,000 ML 100 ML IV CONT (09:24)
[2021-01-17] MEDS: FAMOTIDINE 20 MG/2 ML VIAL IV PUSH ×2 (09:28→20:48)
[2021-01-17] MEDS: ENOXAPARIN 40 MG/0.4 ML SYRINGE SUB-Q (09:29)
[2021-01-17] MEDS: SODIUM POLYSTYRENE SULFONONATE 15 GM/60 ML BTL 30 GM FEED TUBE (09:29)
[2021-01-17] MEDS: ASCORBIC ACID 500 MG TABLET 1000 MG PO ×2 (09:34→17:16)
[2021-01-17] MEDS: ZINC SULFATE 220 MG CAPSULE PO ×2 (09:34→17:16)
[2021-01-17] MEDS: MINERAL OIL/WHITE PETROLATUM OINTMENT 1 APPLIC EACH EYE ×2 (09:34→20:48)
[2021-01-17] MEDS: VITAMIN B COMPLEX/VIT C CAPSULE 1 EACH PO (09:34)
[2021-01-17] MEDS: CHOLECALCIFEROL 1,000 UNITS TABLET 2000 UNITS BY MOUTH (09:34)
[2021-01-17] MEDS: SACCHAROMYCES BOULARDII 250 MG CAPSULE PO ×2 (09:34→17:16)
[2021-01-17 12:07] LABS: Glucose Point of Care 167 mg/dl (65-105)
[2021-01-17 17:43] LABS: Glucose Point of Care 137 mg/dl (65-105)
[2021-01-18] VITALS (37 sets, daily range): BP systolic 92–138; BP diastolic 62–85; PULSE 99–142; RESP 22–24; TEMP 36–37.3; O2SAT 91–96
[2021-01-18 00:06] LABS: Glucose Point of Care 183 mg/dl (65-105)
[2021-01-18] MEDS: IPRATROPIUM BR 0.02% INH SOLN 0.5 MG/2.5 ML VIAL INHALATION (02:30)
[2021-01-18] MEDS: LEVALBUTEROL NEB 1.25 MG/3 ML 0.63 MG INHALATION (02:30)
[2021-01-18] MEDS: methylPREDNISolone SOD SUCC 40 MG VIAL IV PUSH (05:03)
[2021-01-18] MEDS: CENTRAL LINE FLUSH 10 ML IV PUSH ×3 (05:03→20:24)
[2021-01-18] MEDS: METOCLOPRAMIDE HCL 10 MG/10 ML SOLN UDC PO ×4 (05:03→23:15)
[2021-01-18 05:57] LABS: Hematocrit 31.1 % (37.0-47.0); Hemoglobin 9.7 g/dL (12.0-15.0); Mean Corpuscular HGB Conc 31.2 g/dl (32-36); Mean Corpuscular Volume 93.1 fl (80-100); Mean Platelet Volume 11.2 fl (7.4-10.4); Platelet Count Result 222 k/mm3 (150-375); Red Blood Count 3.34 M/mm3 (4.2-5.4); Red Cell Distribution Width 13.4 % (11.5-14.5); White Blood Count 19.4 K/mm3 (4.5-10.0)
[2021-01-18 06:08] LABS: Carboxyhemoglobin 0.3 % THb (0-2.0); Fractional Inspired Oxygen 60 %; HCO3 ABG 39.1 mEq/l (22.0-26.0); Methemoglobin ABG 0.5 %THb (0-1.5); Oxygen Content ABG 14.4 %vol (16.0-22.0); Oxygen Saturation ABG 93.2 % (95.0-100.0); Oxyhemoglobin 92.6 % THb (90.0-100.0); PO2 ABG 69.2 mmHg (80.0-100.0); PO2 FiO2 Ratio Arterial Blood 1.15 %; Reduced Hemoglobin 6.6 %THb (0-5.0); pH ABG 7.396 (7.350-7.450)
[2021-01-18 06:09] LABS: Arterial Blood Gas Vent Mode CMV; Arterial Blood Gas Ventilator rate 22 /MIN; Device VENTILATOR; Modified Allen's Test Unable to perform; PCO2 ABG 65.1 mmHg (35.0-45.0); Site Drawn RIGHT RADIAL
[2021-01-18 06:10] LABS: Arterial Blood Gas PEEP 10 cmH2O; Arterial Blood Gas Tidal Volume 340 ml
[2021-01-18 06:11] LABS: Alanine Aminotransferase 229 U/L (4-35); Alkaline Phosphatase 154 U/L (38-126); Aspartate Amino Transferase 83 U/L (14-36); Bilirubin,Total 0.5 mg/dL (0.2-1.3); Blood Urea Nitrogen 32 mg/dL (7-17); Calcium 8.8 mg/dL (8.4-10.2); Carbon Dioxide > 40 mmol/L (22-30); Chloride 92 mmol/L (98-107); Estimated CRCL calculation 79 ml/min; Estimated Glomerular Filt Rate > 60; Glucose 174 mg/dL (65-110); Magnesium 2.4 mg/dL (1.6-2.3); Potassium 4.5 mmol/L (3.4-5.0); Sodium 137 mmol/L (137-145)
[2021-01-18] MEDS: CISATRACURIUM BESYLATE 200 MG in DEXTROSE 5% 80 ML 7.99 ML IV CONT (06:46)
[2021-01-18] MEDS: MIDAZOLAM 100MG/NS 100ML(*CRX) 100 MG/100 ML BAG 9 MG IV CONT ×2 (09:03→20:18)
[2021-01-18] MEDS: FENTANYL 2,500MCG/NS250ML(*CRX 2,500 MCG/250 ML BAG 20 MCG IV CONT ×2 (09:04→23:17)
[2021-01-18] MEDS: PROPOFOL IV EMULSION 100 ML 2.21 MG IV CONT (09:05)
[2021-01-18] MEDS: SODIUM CHLORIDE 0.9% IV 500 ML IV CONT (09:06)
[2021-01-18] MEDS: ENOXAPARIN 40 MG/0.4 ML SYRINGE SUB-Q (09:06)
[2021-01-18] MEDS: FAMOTIDINE 20 MG/2 ML VIAL IV PUSH ×2 (09:06→20:24)
[2021-01-18] MEDS: MINERAL OIL/WHITE PETROLATUM OINTMENT 1 APPLIC EACH EYE ×2 (09:21→20:24)
[2021-01-18] MEDS: ASCORBIC ACID 500 MG TABLET 1000 MG PO ×2 (09:25→17:13)
[2021-01-18] MEDS: ZINC SULFATE 220 MG CAPSULE PO ×2 (09:25→17:13)
[2021-01-18] MEDS: CHOLECALCIFEROL 1,000 UNITS TABLET 2000 UNITS BY MOUTH (09:25)
[2021-01-18] MEDS: SACCHAROMYCES BOULARDII 250 MG CAPSULE PO ×2 (09:26→17:13)
[2021-01-18] MEDS: VITAMIN B COMPLEX/VIT C CAPSULE 1 EACH PO (09:26)
--- NOTE | 2021-01-18 11:01 | PM.IMPN ---
Progress Note: A&P Assessment and Plan (1) Acute respiratory failure with hypoxia: Code(s): J96.01 - Acute respiratory failure with hypoxia Status: Acute Assessment and Plan: Acute hypoxic respiratory failure secondary to COVID-19 pneumonia. Over the course she has developed increasing oxygen requirements, transferred to the ICU on 01/12/2021 -was on BiPAP / and 100%. Intubated 01/13 -ABG reviewed. Will tolerate permissive hypercapnia to high pressures. Tidal volume is at 340. FiO2 is at 50% PEEP is at 10. -patient was placed in prone position overnight and will be switched to supine this morning. if patient maintains saturation in supine position with no further oxygen requirement will re-evaluate continued need for prone ventilation -chest x-ray reviewed -continue neuromuscular miles for better ventilator synchrony -ordered bronchodilators and Pulmicort -continue Versed and fentanyl infusion (2) Pneumonia due to COVID-19 virus: Code(s): U07.1 - COVID-19; J12.82 - Pneumonia due to coronavirus disease 2019 Status: Acute Assessment and Plan: Patient tested positive for COVID on 12/25/2020. Patient is unvaccinated -she is status post Remdesivir, dexamethasone -status post azithromycin and ceftriaxone -currently on Baricitinib for 14 days -she is on Solu-Medrol -on vitamin-C, vitamin-D and zinc. Patient also on melatonin, -at home patient was also taking hydroxychloroquine -patient's was demanding to start method of prednisolone, nitazoxanide, fluvoxamine, cyproheptadine, famotidine -continue airborne, droplet, contact isolation precaution -inflammatory markers continue to be high (3) DVT prophylaxis: Code(s): Z29.9 - Encounter for prophylactic measures, unspecified Status: Acute Assessment and Plan: Lovenox SQ (4) Pneumomediastinum: Code(s): J98.2 - Interstitial emphysema Status: Acute Assessment and Plan: Small area suggestive of new mediastinum on chest x-ray today likely secondary to noninvasive positive pressure ventilation Continue to monitor at this time (5) Pneumothorax on right: Onset Date: ~01/14/21 Code(s): J93.9 - Pneumothorax, unspecified Status: Acute Assessment and Plan: Status post chest tube placement by General surgery Chest tube is on suction No air leak at this time (6) Acidosis: Code(s): E87.2 - Acidosis Status: Acute Assessment and Plan: Respiratory acidosis secondary to permissive hypercapnia Improved (7) Shock: Code(s): R57.9 - Shock, unspecified Status: Acute Assessment and Plan: Likely secondary to sedation and hypovolemia Off Levophed at this time (8) Leukocytosis: Code(s): D72.829 - Elevated white blood cell count, unspecified Status: Acute Assessment and Plan: Likely secondary to steroid and is improving Patient is afebrile She has completed a course of Rocephin azithromycin Will repeat cultures if patient becomes febrile (9) Hyperkalemia: Code(s): E87.5 - Hyperkalemia Status: Acute Assessment and Plan: Mild with K of 5.1. Will give dose of Kayexalate Additional Plan 01/18/2021 DVT prophylaxis -Lovenox subQ Stress ulcer prophylaxis -Pepcid IV Nutrition -continue Tube Feeds. Reglan added Code Status - Full Code Will continue with ventilation support. Monitor labs x-ray and electrolytes. Case was discussed with ICU attending. Subjective Date/time seen: 01/18/21 11:01 Interval history: 60yo female healthy female who presents to the ED with complaints of syncope. She was exposed to a COVID positive patient. She called the online frontline doctor care and was prescribed zinc, vitamin C, hydrochloroquine and was taking these medications on admission. She is unvaccinated. She had worsening hypoxia requiring intubation 01/13. 01/18/2021 Patient was seen during the morning rounds today. Patient i
--- NOTE | 2021-01-18 11:20 | WPDINTPN ---
Progress Note: A&P Assessment and Plan (1) Acute respiratory failure with hypoxia: Code(s): J96.01 - Acute respiratory failure with hypoxia Status: Acute Assessment and Plan: Acute hypoxic respiratory failure secondary to COVID-19 pneumonia. Over the course she has developed increasing oxygen requirements, transferred to the ICU on 01/12/2021 -was on BiPAP / and 100%. Intubated 01/13 -ABG reviewed. Will tolerate permissive hypercapnia to high pressures. Tidal volume is at 340. FiO2 is at 60% PEEP is at 10. rate increased to 24 - patient was ventilated in prone position daily for 1st few days. currently tolerating supine position. will re-evaluate continued need for prone ventilation daily -chest x-ray reviewed and shows significant amount of subcu air -continue neuromuscular miles for better ventilator synchrony -ordered bronchodilators and Pulmicort -continue Versed and fentanyl infusion (2) Pneumonia due to COVID-19 virus: Code(s): U07.1 - COVID-19; J12.82 - Pneumonia due to coronavirus disease 2018 Status: Acute Assessment and Plan: Patient tested positive for COVID on 12/25/2020. Patient is unvaccinated -she is status post Remdesivir, dexamethasone -status post azithromycin and ceftriaxone -currently on Baricitinib for 14 days -she is on Solu-Medrol -on vitamin-C, vitamin-D and zinc. Patient also on melatonin, -at home patient was also taking hydroxychloroquine -patient's was demanding to start method of prednisolone, nitazoxanide, fluvoxamine, cyproheptadine, famotidine -continue airborne, droplet, contact isolation precaution -inflammatory markers continue to be high (3) DVT prophylaxis: Code(s): Z29.9 - Encounter for prophylactic measures, unspecified Status: Acute Assessment and Plan: Lovenox SQ (4) Pneumomediastinum: Code(s): J98.2 - Interstitial emphysema Status: Acute Assessment and Plan: Small area suggestive of new mediastinum on chest x-ray today likely secondary to noninvasive positive pressure ventilation Continue to monitor at this time (5) Pneumothorax on right: Onset Date: ~01/14/21 Code(s): J93.9 - Pneumothorax, unspecified Status: Acute Assessment and Plan: Status post chest tube placement by General surgery Chest tube is on suction No air leak at this time (6) Acidosis: Code(s): E87.2 - Acidosis Status: Acute Assessment and Plan: Respiratory acidosis secondary to permissive hypercapnia Improved (7) Shock: Code(s): R57.9 - Shock, unspecified Status: Acute Assessment and Plan: Likely secondary to sedation and hypovolemia Off Levophed at this time (8) Leukocytosis: Code(s): D72.829 - Elevated white blood cell count, unspecified Status: Acute Assessment and Plan: Likely secondary to steroid Patient is afebrile She has completed a course of Rocephin azithromycin Will repeat cultures if patient becomes febrile (9) Hyperkalemia: Code(s): E87.5 - Hyperkalemia Status: Acute Assessment and Plan: patient was given a dose of Kayexalate yesterday and K today is 4.5 (10) Tachycardia: Code(s): R00.0 - Tachycardia, unspecified Status: Acute Assessment and Plan: patient in sinus tachycardia will give small IV fluid bolus change bronchodilators to p.r.n. Additional Plan DVT prophylaxis -Lovenox subQ Stress ulcer prophylaxis -Pepcid IV Nutrition -continue Tube Feeds. Norman added Code Status - Full Code 01/14 I called and spoke to ECMO team at [facility]. Discussed case with Dr. Devlin. He recommended continuing to optimize mechanical ventilation and current treatment before evaluation for ECMO in next couple of days. he also told me that they do not have bed at this point but would be open to taking her depending on her course in next few days and in case the bed becomes available.
[2021-01-18 12:18] LABS: Glucose Point of Care 163 mg/dl (65-105)
[2021-01-18 17:21] LABS: Glucose Point of Care 151 mg/dl (65-105)
[2021-01-18] MEDS: BUDESONIDE RESPULE NEB 0.5 MG/2 ML AMP INHALATION (19:59)
[2021-01-18] MEDS: PROPOFOL IV EMULSION 100 ML 6.64 MG IV CONT (20:19)
[2021-01-18] MEDS: CISATRACURIUM BESYLATE 200 MG in DEXTROSE 5% 80 ML 6.99 ML IV CONT (20:32)
[2021-01-18 23:39] LABS: Glucose Point of Care 133 mg/dl (65-105)
[2021-01-19] VITALS (43 sets, daily range): BP systolic 88–120; BP diastolic 52–67; PULSE 90–127; RESP 24; TEMP 37–37.6; O2SAT 87–96
[2021-01-19 04:50] LABS: Alveolar/Arterial O2 Gradient 291.7 mmHg; Base Excess ABG 10.7 mEq/l (+/-2.0); Carboxyhemoglobin 0.3 % THb (0-2.0); Fractional Inspired Oxygen 60 %; HCO3 ABG 37.6 mEq/l (22.0-26.0); Methemoglobin ABG 0.5 %THb (0-1.5); Oxygen Content ABG 13.5 %vol (16.0-22.0); Oxyhemoglobin 92.3 % THb (90.0-100.0); PO2 ABG 65.6 mmHg (80.0-100.0); PO2 FiO2 Ratio Arterial Blood 1.09 %; Reduced Hemoglobin 6.9 %THb (0-5.0); Total Hemoglobin 10.4 g/dL (12.0-18.0); pH ABG 7.386 (7.350-7.450)
[2021-01-19 04:51] LABS: Modified Allen's Test Pass; PCO2 ABG 64.1 mmHg (35.0-45.0); Site Drawn LEFT RADIAL
[2021-01-19 04:52] LABS: Arterial Blood Gas PEEP 10 cmH2O; Arterial Blood Gas Tidal Volume 340 ml; Arterial Blood Gas Vent Mode CMV; Arterial Blood Gas Ventilator rate 24 /MIN; Device VENTILATOR
[2021-01-19] MEDS: METOCLOPRAMIDE HCL 10 MG/10 ML SOLN UDC PO ×4 (06:24→23:15)
[2021-01-19] MEDS: CENTRAL LINE FLUSH 10 ML IV PUSH ×3 (06:24→20:19)
[2021-01-19] MEDS: PROPOFOL IV EMULSION 100 ML 8.86 MG IV CONT ×2 (08:01→18:35)
[2021-01-19] MEDS: MIDAZOLAM 100MG/NS 100ML(*CRX) 100 MG/100 ML BAG 9 MG IV CONT ×2 (08:02→19:43)
[2021-01-19] MEDS: ENOXAPARIN 40 MG/0.4 ML SYRINGE SUB-Q (08:11)
[2021-01-19] MEDS: CHOLECALCIFEROL 1,000 UNITS TABLET 2000 UNITS BY MOUTH (08:11)
[2021-01-19] MEDS: ZINC SULFATE 220 MG CAPSULE PO ×2 (08:11→18:38)
[2021-01-19] MEDS: BUDESONIDE RESPULE NEB 0.5 MG/2 ML AMP INHALATION ×2 (08:11→22:08)
[2021-01-19] MEDS: ASCORBIC ACID 500 MG TABLET 1000 MG PO ×2 (08:11→18:38)
[2021-01-19] MEDS: VITAMIN B COMPLEX/VIT C CAPSULE 1 EACH PO (08:12)
[2021-01-19] MEDS: MINERAL OIL/WHITE PETROLATUM OINTMENT 1 APPLIC EACH EYE ×2 (08:12→20:19)
[2021-01-19] MEDS: FAMOTIDINE 20 MG/2 ML VIAL IV PUSH ×2 (08:12→20:20)
[2021-01-19] MEDS: SACCHAROMYCES BOULARDII 250 MG CAPSULE PO ×2 (08:12→18:38)
[2021-01-19] MEDS: methylPREDNISolone SOD SUCC 40 MG VIAL IV PUSH (08:13)
[2021-01-19 08:22] LABS: Hematocrit 30.2 % (37.0-47.0); Hemoglobin 9.2 g/dL (12.0-15.0); Immature Platelet Fraction Pct 6.2 % (0.9-11.2); Mean Corpuscular HGB Conc 30.5 g/dl (32-36); Mean Corpuscular Hemoglobin 28.8 pg (26-34); Mean Corpuscular Volume 94.7 fl (80-100); Mean Platelet Volume 12.9 fl (7.4-10.4); Platelet Count Result 193 k/mm3 (150-375); Red Blood Count 3.19 M/mm3 (4.2-5.4); Red Cell Distribution Width 13.4 % (11.5-14.5); White Blood Count 18.9 K/mm3 (4.5-10.0)
[2021-01-19 08:23] LABS: Alanine Aminotransferase 223 U/L (4-35); Albumin Level 2.7 g/dL (3.5-5.1); Alkaline Phosphatase 145 U/L (38-126); Aspartate Amino Transferase 54 U/L (14-36); Bilirubin,Total 0.3 mg/dL (0.2-1.3); Blood Urea Nitrogen 26 mg/dL (7-17); Calcium 8.3 mg/dL (8.4-10.2); Carbon Dioxide > 40 mmol/L (22-30); Chloride 89 mmol/L (98-107); Estimated CRCL calculation 94 ml/min; Estimated Glomerular Filt Rate > 60; Glucose 134 mg/dL (65-110); Phosphorus 2.4 mg/dL (2.5-4.5); Potassium 3.8 mmol/L (3.4-5.0); Sodium 135 mmol/L (137-145)
--- NOTE | 2021-01-19 08:46 | WPDINTPN ---
Progress Note: A&P Assessment and Plan (1) Acute respiratory failure with hypoxia: Code(s): J96.01 - Acute respiratory failure with hypoxia Status: Acute Assessment and Plan: Acute hypoxic respiratory failure secondary to COVID-19 pneumonia. Over the course she has developed increasing oxygen requirements, transferred to the ICU on 01/12/2021 -was on BiPAP 12/ and 100%. Intubated 01/13 -ABG reviewed. Will tolerate permissive hypercapnia to high pressures. Tidal volume is at 340. FiO2 seen down to 55% PEEP is at 10. rate 24 - patient was ventilated in prone position daily for 1st few days. currently tolerating supine position. will re-evaluate continued need for prone ventilation daily -chest x-ray reviewed and shows significant amount of subcu air -continue neuromuscular miles for better ventilator synchrony -ordered bronchodilators and Pulmicort -continue Versed and fentanyl infusion (2) Pneumonia due to COVID-19 virus: Code(s): U07.1 - COVID-19; J12.82 - Pneumonia due to coronavirus disease 2018 Status: Acute Assessment and Plan: Patient tested positive for COVID on 12/25/2020. Patient is unvaccinated -she is status post Remdesivir, dexamethasone -status post azithromycin and ceftriaxone - completed a course of Baricitinib for 14 days -she is on Solu-Medrol -on vitamin-C, vitamin-D and zinc. Patient also on melatonin, -at home patient was also taking hydroxychloroquine -patient's was demanding to start method of prednisolone, nitazoxanide, fluvoxamine, cyproheptadine, famotidine -continue airborne, droplet, contact isolation precaution -inflammatory markers continue to be high (3) DVT prophylaxis: Code(s): Z29.9 - Encounter for prophylactic measures, unspecified Status: Acute Assessment and Plan: Lovenox SQ (4) Pneumomediastinum: Code(s): J98.2 - Interstitial emphysema Status: Acute Assessment and Plan: Small area suggestive of new mediastinum on chest x-ray today likely secondary to noninvasive positive pressure ventilation Continue to monitor at this time (5) Pneumothorax on right: Onset Date: ~01/14/21 Code(s): J93.9 - Pneumothorax, unspecified Status: Acute Assessment and Plan: Status post chest tube placement by General surgery Chest tube is on suction No air leak at this time (6) Acidosis: Code(s): E87.2 - Acidosis Status: Acute Assessment and Plan: Respiratory acidosis secondary to permissive hypercapnia Improved (7) Shock: Code(s): R57.9 - Shock, unspecified Status: Acute Assessment and Plan: Likely secondary to sedation and hypovolemia Off Levophed at this time (8) Leukocytosis: Code(s): D72.829 - Elevated white blood cell count, unspecified Status: Acute Assessment and Plan: Likely secondary to steroid Patient is afebrile She has completed a course of Rocephin azithromycin Will repeat cultures if patient becomes febrile (9) Tachycardia: Code(s): R00.0 - Tachycardia, unspecified Status: Acute Assessment and Plan: patient in sinus tachycardia she was given small IV fluid bolus yesterday bronchodilators have been changed to p.r.n. Additional Plan DVT prophylaxis -Lovenox subQ Stress ulcer prophylaxis -Pepcid IV Nutrition -continue Tube Feeds. Reglan to be continued Code Status - Full Code 01/14 I called and spoke to ECMO team at [facility]. Discussed case with Dr. Devlin. He recommended continuing to optimize mechanical ventilation and current treatment before evaluation for ECMO in next couple of days. he also told me that they do not have bed at this point but would be open to taking her depending on her course in next few days and in case the bed becomes available. 01/18 I again called and spoke to Dr. Perez with [facility] ECMO transfer line. I updated him patient's progress and current status. He told
[2021-01-19] MEDS: FUROSEMIDE INJ 40 MG/4 ML VIAL IV PUSH (10:37)
--- NOTE | 2021-01-19 11:50 | PCDIET ---
ICU Rounding Note: Patient tolerating Vital 1.2 at 50mL/hr goal rate with 30mL water flush every 4 hours. Residuals were up to 425mL over the weekend, but patient currently tolerating well. Last recorded weight is 76kg which is increased from last review. +I/O. Bowel Motility: Last documented BM on 01/17/21 x 1. Labs Reviewed: WBC (18.9), RBC (3.19), Hgb (9.2), Hct (30.2), Glu (134), BUN (26), Cr (0.5), Na (135), Alb (2.7) Meds Noted: Vitamin C, Pulmicort, Fentanyl, Nimbex, Pepcid, Reglan, Versed, Florastor, [place] W/C, Vitamin D, Zinc Sulfate, Lasix, Propofol (rate of 8.86mL/hr provides 233kcal per day) Additional Notes: Right chest incision documented; no pressure sores. Following daily in ICU rounds. Assessing/reassessing every Tuesday/Tuesday.
[2021-01-19] MEDS: CISATRACURIUM BESYLATE 200 MG in DEXTROSE 5% 80 ML 6.99 ML IV CONT (12:25)
[2021-01-19] MEDS: FENTANYL 2,500MCG/NS250ML(*CRX 2,500 MCG/250 ML BAG 20 MCG IV CONT (12:32)
--- NOTE | 2021-01-19 12:53 | PM.IMPN ---
Progress Note: A&P Assessment and Plan (1) Acute respiratory failure with hypoxia: Code(s): J96.01 - Acute respiratory failure with hypoxia Status: Acute Assessment and Plan: Patient with acute respiratory failure secondary to COVID pneumonia. CTA of the chest 12/30 showing no central pulmonary embolus identified (sensitivity limited by motion artifact) and patchy bilateral airspace opacities have pattern consistent with COVID 19 pneumonia. Oxygen requirement worsened requiring intubation on 01/13 despite standard medical treatment. She remains intubated, sedated and paralyzed. Continue to wean vent as tolerated. Appreciate manufacturing software engineer input. (2) Shock: Code(s): R57.9 - Shock, unspecified Status: Acute Assessment and Plan: Patient became hypotensive on 01/14 requiring Levophed. Hypotension felt related to sedation and hypovolemia. IV fluid given. BCx 01/10 NGTD. Off all abx. Able to be weaned off Levophed 01/15. (3) Pneumothorax on right: Onset Date: ~01/14/21 Code(s): J93.9 - Pneumothorax, unspecified Status: Acute Assessment and Plan: Patietn with PTX on the right with CT in place. CXR today reviewed showing small right PTX. Management per general surgery. (4) Pneumomediastinum: Code(s): J98.2 - Interstitial emphysema Status: Acute Assessment and Plan: Patient now with evidence of pneumomediastinum. Remaining stable. Continue daily CXR. (5) Pneumonia due to COVID-19 virus: Code(s): U07.1 - COVID-19; J12.82 - Pneumonia due to coronavirus disease 2019 Status: Acute Assessment and Plan: Patient did not receive a COVID vaccination. She was exposed to an individual who was COVID positive. She did come in on hydroxychloroquine, zinc, vitamin-C and D from home. She began to have symptoms around 12/24/20. She was COVID positive (rapid) on 12/25/20 when in the ED. Returned to ED on 12/30 for worsening symtpms and was admitted. She has since completed Remdesivir and Dexamethasone. Completed Baricitinib 4mg PO daily x 14 days. Convalescent plasma given 01/04/21. Vit C,D, and zinc are on-board. Lasix 40mg IV daily x 3 doses given 01/03/21. Completed a course of Azithromycein as well. demanded that his be treated with Solu-Medrol, Vit C and Ivermectin. Explained that Ivermectin was not standard of care but we did proceed with the other treatment. She remains on Solu-Medrol, Xopenex/Atrovent, Pulmicort, VitC/Zinc/Vit D. Continue supportive care. (6) Acute respiratory acidosis: Code(s): E87.2 - Acidosis Status: Acute Assessment and Plan: pH normal now. Allowing for permissive hypercapnia. As above. (7) Transaminitis: Code(s): R74.01 - Elevation of levels of liver transaminase levels Status: Acute Assessment and Plan: Liver enzymes elevated on admission felt secondary to COVID. Hepatitis panel negative. Levels normalized but increased on 01/15 and have worsened. Etiology unclear. BP stable. Consider RUQ US when more stable. Levels slightly better today. Continue to monitor (8) Hyponatremia: Code(s): E87.1 - Hypo-osmolality and hyponatremia Status: Acute Assessment and Plan: Sodium low on admission and has mostly remained stable in the low 130's. Follow. (9) Gastroesophageal reflux disease: Code(s): K21.9 - Gastro-esophageal reflux disease without esophagitis Status: Acute Assessment and Plan: Stable. Continue pepcid (10) DVT prophylaxis: Code(s): Z29.9 - Encounter for prophylactic measures, unspecified Status: Acute Assessment and Plan: Lovenox Subjective Date/time seen: 01/19/21 12:53 Interval history: 60yo female healthy female who presents to the ED with complaints of syncope. She was exposed to a COVID positive patient. She called the online frontline doctor care and was prescribed zinc, vitamin C, hydroch
[2021-01-19 12:56] LABS: Glucose Point of Care 175 mg/dl (65-105)
[2021-01-19 19:53] LABS: Glucose Point of Care 147 mg/dl (65-105)
[2021-01-19] MEDS: IPRATROPIUM BR 0.02% INH SOLN 0.5 MG/2.5 ML VIAL INHALATION (22:08)
[2021-01-19] MEDS: LEVALBUTEROL NEB 1.25 MG/3 ML 0.63 MG INHALATION (22:08)
[2021-01-19 23:42] LABS: Glucose Point of Care 133 mg/dl (65-105)
[2021-01-20] VITALS (34 sets, daily range): BP systolic 81–145; BP diastolic 55–75; PULSE 73–125; RESP 13–26; TEMP 36.9–37.6; O2SAT 87–97
[2021-01-20] MEDS: FENTANYL 2,500MCG/NS250ML(*CRX 2,500 MCG/250 ML BAG 20 MCG IV CONT (01:35)
[2021-01-20] MEDS: NOREPINEPHRINE 8 MG/D5W 250 ML 8 MG/250 ML BAG 3.75 MG IV CONT (01:35)
[2021-01-20 04:48] LABS: Alveolar/Arterial O2 Gradient 260.7 mmHg; Base Excess ABG 19.2 mEq/l (+/-2.0); Carboxyhemoglobin 0.3 % THb (0-2.0); Fractional Inspired Oxygen 55 %; HCO3 ABG 45.6 mEq/l (22.0-26.0); Methemoglobin ABG 0.5 %THb (0-1.5); Oxygen Content ABG 14.2 %vol (16.0-22.0); Oxygen Saturation ABG 92.3 % (95.0-100.0); Oxyhemoglobin 91.1 % THb (90.0-100.0); PCO2 ABG 62.8 mmHg (35.0-45.0); PO2 ABG 61.6 mmHg (80.0-100.0); PO2 FiO2 Ratio Arterial Blood 1.12 %; Reduced Hemoglobin 8.1 %THb (0-5.0); Total Hemoglobin 11.1 g/dL (12.0-18.0); pH ABG 7.479 (7.350-7.450)
[2021-01-20 04:49] LABS: Arterial Blood Gas Vent Mode CMV; Arterial Blood Gas Ventilator rate 24 /MIN; Device VENTILATOR; Modified Allen's Test Unable to perform; Site Drawn RIGHT RADIAL
[2021-01-20 04:50] LABS: Arterial Blood Gas PEEP 10 cmH2O; Arterial Blood Gas Tidal Volume 340 ml
[2021-01-20 04:57] LABS: Hematocrit 28.5 % (37.0-47.0); Hemoglobin 9.1 g/dL (12.0-15.0); Mean Corpuscular HGB Conc 31.9 g/dl (32-36); Mean Corpuscular Hemoglobin 29.4 pg (26-34); Mean Corpuscular Volume 91.9 fl (80-100); Mean Platelet Volume 10.3 fl (7.4-10.4); Platelet Count Result 228 k/mm3 (150-375); Red Cell Distribution Width 13.5 % (11.5-14.5)
[2021-01-20] MEDS: CENTRAL LINE FLUSH 10 ML IV PUSH ×3 (04:59→20:09)
[2021-01-20] MEDS: METOCLOPRAMIDE HCL 10 MG/10 ML SOLN UDC PO ×4 (04:59→23:25)
[2021-01-20] MEDS: MIDAZOLAM 100MG/NS 100ML(*CRX) 100 MG/100 ML BAG 9 MG IV CONT (06:31)
[2021-01-20] MEDS: methylPREDNISolone SOD SUCC 40 MG VIAL IV PUSH (08:31)
[2021-01-20] MEDS: ZINC SULFATE 220 MG CAPSULE PO ×2 (08:31→18:10)
[2021-01-20] MEDS: ENOXAPARIN 40 MG/0.4 ML SYRINGE SUB-Q (08:31)
[2021-01-20] MEDS: MINERAL OIL/WHITE PETROLATUM OINTMENT 1 APPLIC EACH EYE ×2 (08:31→20:09)
[2021-01-20] MEDS: CHOLECALCIFEROL 1,000 UNITS TABLET 2000 UNITS BY MOUTH (08:31)
[2021-01-20] MEDS: ASCORBIC ACID 500 MG TABLET 1000 MG PO ×2 (08:31→18:10)
[2021-01-20] MEDS: VITAMIN B COMPLEX/VIT C CAPSULE 1 EACH PO (08:31)
[2021-01-20] MEDS: SACCHAROMYCES BOULARDII 250 MG CAPSULE PO ×2 (08:31→18:10)
[2021-01-20] MEDS: FAMOTIDINE 20 MG/2 ML VIAL IV PUSH ×2 (08:32→20:09)
[2021-01-20] MEDS: BUDESONIDE RESPULE NEB 0.5 MG/2 ML AMP INHALATION ×2 (08:35→20:27)
[2021-01-20 11:11] LABS: Alanine Aminotransferase 199 U/L (4-35); Albumin Level 2.7 g/dL (3.5-5.1); Alkaline Phosphatase 138 U/L (38-126); Aspartate Amino Transferase 41 U/L (14-36); Bilirubin,Total 0.4 mg/dL (0.2-1.3); Blood Urea Nitrogen 24 mg/dL (7-17); Calcium 8.3 mg/dL (8.4-10.2); Carbon Dioxide > 40 mmol/L (22-30); Chloride 85 mmol/L (98-107); Estimated CRCL calculation 95 ml/min; Estimated Glomerular Filt Rate > 60; Glucose 131 mg/dL (65-110); Magnesium 1.9 mg/dL (1.6-2.3); Phosphorus 2.6 mg/dL (2.5-4.5); Potassium 3.8 mmol/L (3.4-5.0); Sodium 134 mmol/L (137-145)
--- NOTE | 2021-01-20 11:52 | PCDIET ---
Nutrition Follow-Up Complete: Nutrition Diagnosis: Suboptimal oral intake related to COVID as evidenced by average intake of 65% of recorded meals over last week with inability to eat breakfast today. Nutrition Goal: Patient to meet estimated nutritional needs. Goal met. Patient tolerating Vital 1.2 at 50mL/hr with 30mL water flush every 4 hours. Noted KUB for abdominal distention showed no obstruction. No significant residuals reported. Last recorded weight is 77.3 kg which is increased from last review. Bowel Motility: Last documented BM on 01/17/21 x 1. Labs Reviewed: WBC (22.0), RBC (3.10), Hgb (9.1), Hct (28.5), Glu (131), BUN (24), Cr (0.5), Na (134), Alb (2.7) Meds Noted: Vitamin C, Pulmicort, Pepcid, Fentanyl, Solu Medrol, Reglan, Versed, Florastor, [place] W/C, Vitamin D, Zinc Sulfate Additional Notes: Patient has prn orders for Miralax and Dulcolax. No documented skin breakdown. Will continue to monitor with same goal. Nutrition Monitoring and Evaluation: Follow up every Tuesday/Tuesday. Follow daily in ICU rounds.
[2021-01-20 11:53] LABS: Glucose Point of Care 189 mg/dl (65-105)
--- NOTE | 2021-01-20 12:59 | WPDINTPN ---
Progress Note: A&P Assessment and Plan (1) Acute respiratory failure with hypoxia: Code(s): J96.01 - Acute respiratory failure with hypoxia Status: Acute Assessment and Plan: Acute hypoxic respiratory failure secondary to COVID-19 pneumonia. Over the course she has developed increasing oxygen requirements, transferred to the ICU on 01/12/2021 -was on BiPAP 03/30 and 100%. Intubated 01/13 -ABG reviewed. . Tidal volume is at 340. FiO2 seen down to 55% PEEP is at 10. Increase rate to 26 - patient was ventilated in prone position daily for 1st few days. currently tolerating supine position. will re-evaluate continued need for prone ventilation daily -chest x-ray reviewed and shows significant amount of subcu air -patient is off Nimbex, remains on fentanyl and Versed for sedation -ordered bronchodilators and Pulmicort (2) Pneumonia due to COVID-19 virus: Code(s): U07.1 - COVID-19; J12.82 - Pneumonia due to coronavirus disease 2018 Status: Acute Assessment and Plan: Patient tested positive for COVID on 12/25/2020. Patient is unvaccinated -she is status post Remdesivir, dexamethasone -status post azithromycin and ceftriaxone - completed a course of Baricitinib for 14 days -she is on Solu-Medrol -on vitamin-C, vitamin-D and zinc. Patient also on melatonin, -at home patient was also taking hydroxychloroquine -upon admission to the ICU, patient's was demanding to start method of ivermectin, prednisolone, nitazoxanide, fluvoxamine, cyproheptadine, famotidine -continue airborne, droplet, contact isolation precaution -inflammatory markers continue to be high (3) Pneumomediastinum: Code(s): J98.2 - Interstitial emphysema Status: Acute Assessment and Plan: Small area suggestive of new mediastinum on chest x-ray today likely secondary to noninvasive positive pressure ventilation Continue to monitor at this time (4) Pneumothorax on right: Onset Date: ~01/14/21 Code(s): J93.9 - Pneumothorax, unspecified Status: Acute Assessment and Plan: Status post chest tube placement by General surgery Chest tube is on suction No air leak at this time (5) Acidosis: Code(s): E87.2 - Acidosis Status: Acute Assessment and Plan: Respiratory acidosis secondary to permissive hypercapnia which is acceptable -pH has normalized (6) Shock: Code(s): R57.9 - Shock, unspecified Status: Acute Assessment and Plan: Likely secondary to sedation and hypovolemia Off Levophed at this time (7) Leukocytosis: Code(s): D72.829 - Elevated white blood cell count, unspecified Status: Acute Assessment and Plan: Likely secondary to steroid Patient is afebrile She has completed a course of Rocephin and azithromycin Will repeat cultures if patient becomes febrile (8) Tachycardia: Code(s): R00.0 - Tachycardia, unspecified Status: Acute Assessment and Plan: patient in sinus tachycardia she was given small IV fluid bolus yesterday bronchodilators have been changed to p.r.n. (9) DVT prophylaxis: Code(s): Z29.9 - Encounter for prophylactic measures, unspecified Status: Acute Assessment and Plan: Lovenox SQ Additional Plan DVT prophylaxis -Lovenox subQ Stress ulcer prophylaxis -Pepcid IV Nutrition -continue Tube Feeds. Reglan to be continued Code Status - Full Code 01/14 Dr. Brian called and spoke to ECMO team at [facility]. Discussed case with Dr. Devlin. He recommended continuing to optimize mechanical ventilation and current treatment before evaluation for ECMO in next couple of days. he also told me that they do not have bed at this point but would be open to taking her depending on her course in next few days and in case the bed becomes available. 01/18 Dr. Brian again called and spoke to Dr. Perez with [facility] ECMO transfer line. I updated him patient's progress and current statu
--- NOTE | 2021-01-20 14:03 | PM.IMPN ---
Progress Note: A&P Assessment and Plan (1) Acute respiratory failure with hypoxia: Code(s): J96.01 - Acute respiratory failure with hypoxia Status: Acute Assessment and Plan: Patient with acute respiratory failure secondary to COVID pneumonia. CTA of the chest 12/30 showing no central pulmonary embolus identified (sensitivity limited by motion artifact) and patchy bilateral airspace opacities have pattern consistent with COVID 19 pneumonia. Oxygen requirement worsened requiring intubation on 01/13 despite standard medical treatment. She remains intubated and sedated. Continue to wean vent as tolerated. Appreciate lead mobile developer input. (2) Shock: Code(s): R57.9 - Shock, unspecified Status: Acute Assessment and Plan: Patient became hypotensive on 01/14 requiring Levophed. Hypotension felt related to sedation and hypovolemia. IV fluid given. BCx 01/10 NGTD. Off all abx. Able to be weaned off Levophed 01/15. Did require Levophed again last night for soft BP but improved today and able to come off the Levophed. (3) Pneumothorax on right: Onset Date: ~01/14/21 Code(s): J93.9 - Pneumothorax, unspecified Status: Acute Assessment and Plan: Patietn with PTX on the right with CT in place. CXR today reviewed showing no PTX. Management per general surgery. (4) Pneumomediastinum: Code(s): J98.2 - Interstitial emphysema Status: Acute Assessment and Plan: Patient with evidence of pneumomediastinum. Remaining stable. CXR today reviewed showing resolving findings. Continue daily CXR. (5) Pneumonia due to COVID-19 virus: Code(s): U07.1 - COVID-19; J12.82 - Pneumonia due to coronavirus disease 2019 Status: Acute Assessment and Plan: Patient did not receive a COVID vaccination. She was exposed to an individual who was COVID positive. She did come in on hydroxychloroquine, zinc, vitamin-C and D from home. She began to have symptoms around 12/24/20. She was COVID positive (rapid) on 12/25/20 when in the ED. Returned to ED on 12/30 for worsening symtpms and was admitted. She has since completed Remdesivir and Dexamethasone. Completed Baricitinib 4mg PO daily x 14 days. Convalescent plasma given 01/04/21. Vit C,D, and zinc are on-board. Lasix 40mg IV daily x 3 doses given 01/03/21. Completed a course of Azithromycein as well. demanded that his be treated with Solu-Medrol, Vit C and Ivermectin. Explained that Ivermectin was not standard of care but we did proceed with the other treatment. She remains on Solu-Medrol, Xopenex/Atrovent, Pulmicort, VitC/Zinc/Vit D. Continue supportive care. (6) Acute respiratory acidosis: Code(s): E87.2 - Acidosis Status: Acute Assessment and Plan: pH higher now. Allowing for permissive hypercapnia. As above. (7) Transaminitis: Code(s): R74.01 - Elevation of levels of liver transaminase levels Status: Acute Assessment and Plan: Liver enzymes elevated on admission felt secondary to COVID. Hepatitis panel negative. Levels normalized but increased again on 01/15. Etiology unclear. BP was soft overnight but better now. Consider RUQ US when more stable. Levels better today. Continue to monitor. (8) Hyponatremia: Code(s): E87.1 - Hypo-osmolality and hyponatremia Status: Acute Assessment and Plan: Sodium low on admission and has mostly remained stable in the low 130's. Follow. (9) Gastroesophageal reflux disease: Code(s): K21.9 - Gastro-esophageal reflux disease without esophagitis Status: Acute Assessment and Plan: Stable. Continue Pepcid. (10) DVT prophylaxis: Code(s): Z29.9 - Encounter for prophylactic measures, unspecified Status: Acute Assessment and Plan: Lovenox Subjective Date/time seen: 01/20/21 14:03 Interval history: 60yo female healthy female who presents to the ED with complaints of s
[2021-01-20] MEDS: MIDAZOLAM 100MG/NS 100ML(*CRX) 100 MG/100 ML BAG 8 MG IV CONT (18:32)
[2021-01-20 18:43] LABS: Glucose Point of Care 145 mg/dl (65-105)
[2021-01-20] MEDS: LEVALBUTEROL NEB 1.25 MG/3 ML 0.63 MG INHALATION (20:27)
[2021-01-20] MEDS: IPRATROPIUM BR 0.02% INH SOLN 0.5 MG/2.5 ML VIAL INHALATION (20:27)
[2021-01-20 23:29] LABS: Glucose Point of Care 145 mg/dl (65-105)
[2021-01-21] VITALS (35 sets, daily range): BP systolic 102–151; BP diastolic 58–95; PULSE 90–154; RESP 19–34; TEMP 36.9–37.3; O2SAT 87–98
[2021-01-21] MEDS: FENTANYL 2,500MCG/NS250ML(*CRX 2,500 MCG/250 ML BAG 17.5 MCG IV CONT (03:49)
[2021-01-21 04:30] LABS: Alveolar/Arterial O2 Gradient 236.7 mmHg; Base Excess ABG 19.4 mEq/l (+/-2.0); Fractional Inspired Oxygen 55 %; HCO3 ABG 47.2 mEq/l (22.0-26.0); Oxygen Content ABG 13.3 %vol (16.0-22.0); Oxygen Saturation ABG 93.4 % (95.0-100.0); Oxyhemoglobin 91.5 % THb (90.0-100.0); PO2 ABG 70.5 mmHg (80.0-100.0); PO2 FiO2 Ratio Arterial Blood 1.28 %; Total Hemoglobin 10.3 g/dL (12.0-18.0); pH ABG 7.409 (7.350-7.450)
[2021-01-21 04:32] LABS: Device VENTILATOR; Modified Allen's Test Pass; PCO2 ABG 76.4 mmHg (35.0-45.0); Site Drawn RIGHT RADIAL
[2021-01-21 04:33] LABS: Arterial Blood Gas PEEP 10 cmH2O; Arterial Blood Gas Tidal Volume 340 ml; Arterial Blood Gas Vent Mode CMV; Arterial Blood Gas Ventilator rate 26 /MIN
[2021-01-21] MEDS: METOCLOPRAMIDE HCL 10 MG/10 ML SOLN UDC PO ×3 (05:02→17:19)
[2021-01-21] MEDS: CENTRAL LINE FLUSH 10 ML IV PUSH ×3 (05:03→21:07)
[2021-01-21 05:18] LABS: Basophils Absolute Auto 0.2 K/mm3 (0.0-0.1); Basophils Percent Auto 0.5 % (0.2-1.2); Eosinophils Absolute Auto 0.1 K/mm3 (0-0.3); Eosinophils Percent Auto 0.3 % (0-4.4); Hemoglobin 9.8 g/dL (12.0-15.0); Immature Granulocyte Absolute 2.36 K/mm3 (0.00-0.031); Immature Granulocyte Percent A 7.8 % (0-0.5); Lymphocytes Absolute Auto 2.03 K/mm3 (0.9-3.2); Lymphocytes Percent Auto 6.7 % (18.3-44.2); Mean Corpuscular HGB Conc 31.6 g/dl (32-36); Mean Corpuscular Hemoglobin 29.3 pg (26-34); Mean Corpuscular Volume 92.5 fl (80-100); Mean Platelet Volume 10.4 fl (7.4-10.4); Monocytes Absolute Auto 1.3 K/mm3 (0.1-0.6); Monocytes Percent Auto 4.3 % (2.6-8.5); Neutrophils Absolute Auto 24.3 K/mm3 (1.3-6.7); Neutrophils Percent Auto 80.4 % (45.5-73.1); Nucleated Red Blood Cells Perc 0.1 % (0.0-0.2); Platelet Count Result 266 k/mm3 (150-375); Red Blood Count 3.35 M/mm3 (4.2-5.4); Red Cell Distribution Width 13.5 % (11.5-14.5); White Blood Count 30.2 K/mm3 (4.5-10.0)
[2021-01-21 05:33] LABS: Alanine Aminotransferase 168 U/L (4-35); Albumin Level 3.1 g/dL (3.5-5.1); Alkaline Phosphatase 137 U/L (38-126); Aspartate Amino Transferase 35 U/L (14-36); Bilirubin,Total 0.4 mg/dL (0.2-1.3); Blood Urea Nitrogen 24 mg/dL (7-17); Calcium 8.8 mg/dL (8.4-10.2); Carbon Dioxide > 40 mmol/L (22-30); Chloride 87 mmol/L (98-107); Estimated CRCL calculation 95 ml/min; Estimated Glomerular Filt Rate > 60; Glucose 129 mg/dL (65-110); Phosphorus 4.1 mg/dL (2.5-4.5); Potassium 4.3 mmol/L (3.4-5.0); Sodium 137 mmol/L (137-145)
[2021-01-21 05:56] LABS: Hypochromasia 1+ (NORMAL); Platelet Estimate Adequate (Adequate)
[2021-01-21] MEDS: MIDAZOLAM 100MG/NS 100ML(*CRX) 100 MG/100 ML BAG 8 MG IV CONT (07:47)
[2021-01-21] MEDS: acetaZOLAMIDE SODIUM FOR INJ 500 MG VIAL 250 MG IV PUSH ×2 (08:40→21:06)
[2021-01-21] MEDS: WATER, STERILE FOR INJECTION 10 ML VIAL XX (08:40)
[2021-01-21] MEDS: ZINC SULFATE 220 MG CAPSULE PO ×2 (08:40→17:19)
[2021-01-21] MEDS: FAMOTIDINE 20 MG/2 ML VIAL IV PUSH ×2 (08:40→21:05)
[2021-01-21] MEDS: methylPREDNISolone SOD SUCC 40 MG VIAL IV PUSH (08:40)
[2021-01-21] MEDS: ASCORBIC ACID 500 MG TABLET 1000 MG PO ×2 (08:40→17:19)
[2021-01-21] MEDS: ENOXAPARIN 40 MG/0.4 ML SYRINGE SUB-Q (08:41)
[2021-01-21] MEDS: CHOLECALCIFEROL 1,000 UNITS TABLET 2000 UNITS BY MOUTH (08:41)
[2021-01-21] MEDS: SACCHAROMYCES BOULARDII 250 MG CAPSULE PO ×2 (08:42→17:19)
[2021-01-21] MEDS: MINERAL OIL/WHITE PETROLATUM OINTMENT 1 APPLIC EACH EYE ×2 (08:42→21:05)
[2021-01-21] MEDS: VITAMIN B COMPLEX/VIT C CAPSULE 1 EACH PO (08:42)
[2021-01-21] MEDS: BUDESONIDE RESPULE NEB 0.5 MG/2 ML AMP INHALATION ×2 (08:45→21:10)
--- NOTE | 2021-01-21 09:58 | WPDINTPN ---
Progress Note: A&P Assessment and Plan (1) Acute respiratory failure with hypoxia: Code(s): J96.01 - Acute respiratory failure with hypoxia Status: Acute Assessment and Plan: Acute hypoxic respiratory failure secondary to COVID-19 pneumonia. Over the course she has developed increasing oxygen requirements, transferred to the ICU on 01/12/2021 -was on BiPAP / and 100%. Intubated 01/13 -ABG reviewed. Hypercapnia and contraction alkalosis, ventilator adjusted, I to E ratio was increased -currently on peep of 10 and 55% FiO2, wean FiO2 to maintain O2 sats greater than 92% - patient was ventilated in prone position daily for 1st few days. currently tolerating supine position. will re-evaluate continued need for prone ventilation daily -chest x-ray reviewed and shows significant amount of subcu air -patient is off Nimbex, remains on fentanyl and Versed for sedation -ordered bronchodilators and Pulmicort -will diurese patient with Diamox given contraction alkalosis (2) Pneumonia due to COVID-19 virus: Code(s): U07.1 - COVID-19; J12.82 - Pneumonia due to coronavirus disease 2019 Status: Acute Assessment and Plan: Patient tested positive for COVID on 12/25/2020. Patient is unvaccinated -she is status post Remdesivir, dexamethasone -status post azithromycin and ceftriaxone - completed a course of Baricitinib for 14 days -she is on Solu-Medrol -on vitamin-C, vitamin-D and zinc. Patient also on melatonin, -at home patient was also taking hydroxychloroquine -upon admission to the ICU, patient's was demanding to start method of ivermectin, prednisolone, nitazoxanide, fluvoxamine, cyproheptadine, famotidine, discussed with the in details and explained to him that the is no appropriate and official data regarding these medications, in then over the in patients with COVID-19, he did comprehend -continue airborne, droplet, contact isolation precaution (3) Pneumomediastinum: Code(s): J98.2 - Interstitial emphysema Status: Acute Assessment and Plan: Small area suggestive of new mediastinum on chest x-ray today likely secondary to noninvasive positive pressure ventilation -chest x-ray this morning shows no residual pneumothorax, significant improvement in the previously seen subcutaneous emphysema Continue to monitor at this time (4) Pneumothorax on right: Onset Date: ~01/14/21 Code(s): J93.9 - Pneumothorax, unspecified Status: Acute Assessment and Plan: Status post chest tube placement by General surgery Chest tube is on suction No air leak at this time -no residual pneumothorax, chest x-ray (5) Acidosis: Code(s): E87.2 - Acidosis Status: Acute Assessment and Plan: Respiratory acidosis secondary to permissive hypercapnia which is acceptable, also likely secondary to contraction alkalosis, ventilator adjusted, patient with diuresed with Diamox -pH has normalized (6) Shock: Code(s): R57.9 - Shock, unspecified Status: Acute Assessment and Plan: Likely secondary to sedation and hypovolemia Off Levophed at this time -01/10/2021: Blood cultures and urine cultures have been negative so far (7) Leukocytosis: Code(s): D72.829 - Elevated white blood cell count, unspecified Status: Acute Assessment and Plan: Likely secondary to steroid Patient is afebrile She has completed a course of Rocephin and azithromycin Will repeat cultures if patient becomes febrile (8) Tachycardia: Code(s): R00.0 - Tachycardia, unspecified Status: Acute Assessment and Plan: patient in sinus tachycardia she was given small IV fluid bolus yesterday bronchodilators have been changed to p.r.n. -improvement in tachycardia, currently in sinus rhythm with rate in the 80s (9) DVT prophylaxis: Code(s): Z29.9 - Encounter for prophylactic measures, unspecified Status: Acute Assessment an
--- NOTE | 2021-01-21 10:45 | PCDIET ---
ICU Rounding Note: Patient tolerating Vital 1.2 at 50mL/hr goal rate with 30mL water flush every 4 hours. Last recorded weight is 77.5kg which is stable with last review. Bowel Motility: RN reports smear BM overnight. Labs Reviewed: WBC (30.2), RBC (3.35), Hgb (9.8), Hct (31.0), Glu (129), BUN (24), Cr (0.5), Alb (3.1) Meds Noted: Diamox, Vitamin C, Pepcid, Fentanyl, Pulmicort, Solu Medrol, Reglan, Versed, Florastor, [place] W/C, Vitamin D, Zinc Sulfate Additional Notes: Patient has order for Miralax prn. No documented skin breakdown. Following daily in ICU rounds. Assessing/reassessing every Tuesday/Tuesday.
[2021-01-21 12:24] LABS: Glucose Point of Care 156 mg/dl (65-105)
--- NOTE | 2021-01-21 16:36 | PM.IMPN ---
Progress Note: A&P Assessment and Plan (1) Acute respiratory failure with hypoxia: Code(s): J96.01 - Acute respiratory failure with hypoxia Status: Acute Assessment and Plan: Patient with acute respiratory failure secondary to COVID pneumonia. CTA of the chest 12/30 showing no central pulmonary embolus identified (sensitivity limited by motion artifact) and patchy bilateral airspace opacities have pattern consistent with COVID 19 pneumonia. Oxygen requirement worsened requiring intubation on 01/13 despite aggressive medical treatment. She remains intubated and sedated. Continue to wean vent as tolerated. Appreciate community assistant input. (2) Shock: Code(s): R57.9 - Shock, unspecified Status: Acute Assessment and Plan: Patient became hypotensive on 01/14 requiring Levophed. Hypotension felt related to sedation and hypovolemia. IV fluid given. BCx 01/10 NGTD. Off all abx. Able to be weaned off Levophed 01/15. Did require Levophed again 01/20 for soft BP but able to wean off later that same day. Continue to follow. (3) Pneumothorax on right: Onset Date: ~01/14/21 Code(s): J93.9 - Pneumothorax, unspecified Status: Acute Assessment and Plan: Patietn with PTX on the right with CT in place. CXR today reviewed showing no PTX. Management per general surgery. (4) Pneumomediastinum: Code(s): J98.2 - Interstitial emphysema Status: Acute Assessment and Plan: Patient with evidence of pneumomediastinum by CXR with SQ crepitus. Remaining stable. CXR today reviewed showing resolving pneumomediastinum and SQ emphysema. Continue daily CXR. (5) Pneumonia due to COVID-19 virus: Code(s): U07.1 - COVID-19; J12.82 - Pneumonia due to coronavirus disease 2019 Status: Acute Assessment and Plan: Patient did not receive a COVID vaccination. She was exposed to an individual who was COVID positive. She did come in on hydroxychloroquine, zinc, vitamin-C and D from home. She began to have symptoms around 12/24/20. She was COVID positive (rapid) on 12/25/20 when in the ED. Returned to ED on 12/30 for worsening symtpms and was admitted. She has since completed Remdesivir and Dexamethasone. Completed Baricitinib 4mg PO daily x 14 days. Convalescent plasma given 01/04/21. Vit C,D, and zinc are on-board. Lasix 40mg IV daily x 3 doses given 01/03- and again 01/19. Completed a course of Azithromycein as well. demanded that his be treated with Solu-Medrol, Vit C and Ivermectin. Explained that Ivermectin was not standard of care but we did proceed with the other treatment. She remains on Solu-Medrol, Xopenex/Atrovent, Pulmicort, VitC/Zinc/Vit D. Continue supportive care. (6) Acute respiratory acidosis: Code(s): E87.2 - Acidosis Status: Acute Assessment and Plan: pH was 7.16 and NaBicarb IV given 01/15. pH normal now. Allowing for permissive hypercapnia. Serum bicarb >40 and Diamox x2 doses ordered. As above. (7) Transaminitis: Code(s): R74.01 - Elevation of levels of liver transaminase levels Status: Acute Assessment and Plan: Liver enzymes elevated on admission felt secondary to COVID. Hepatitis panel negative. Levels normalized but increased again on 01/15. Etiology unclear. BP soft at times so consider transient HoTN as the etiology of the flucuating liver tests. Consider RUQ US when more stable. Levels continue to improve. Continue to monitor. (8) Hyponatremia: Code(s): E87.1 - Hypo-osmolality and hyponatremia Status: Acute Assessment and Plan: Sodium low on admission and has mostly remained low normal range. (9) Gastroesophageal reflux disease: Code(s): K21.9 - Gastro-esophageal reflux disease without esophagitis Status: Acute Assessment and Plan: Stable. Continue Pepcid. (10) DVT prophylaxis: Code(s): Z29.9 - Encounter for prophylactic measures, unspecifi
[2021-01-21 17:50] LABS: Glucose Point of Care 181 mg/dl (65-105)
[2021-01-21] MEDS: FENTANYL 2,500MCG/NS250ML(*CRX 2,500 MCG/250 ML BAG 15 MCG IV CONT (18:13)
[2021-01-21] MEDS: MIDAZOLAM 100MG/NS 100ML(*CRX) 100 MG/100 ML BAG 6 MG IV CONT (23:13)
[2021-01-22] VITALS (45 sets, daily range): BP systolic 109–173; BP diastolic 59–96; PULSE 100–154; RESP 18–32; TEMP 36.7–37.4; O2SAT 92–100
[2021-01-22] MEDS: METOCLOPRAMIDE HCL 10 MG/10 ML SOLN UDC PO ×5 (01:17→23:51)
[2021-01-22 01:21] LABS: Glucose Point of Care 108 mg/dl (65-105)
[2021-01-22 05:45] LABS: Eosinophils Absolute Auto 0.1 K/mm3 (0-0.3); Eosinophils Percent Auto 0.2 % (0-4.4); Hematocrit 32.7 % (37.0-47.0); Immature Granulocyte Absolute 2.38 K/mm3 (0.00-0.031); Lymphocytes Absolute Auto 2.53 K/mm3 (0.9-3.2); Lymphocytes Percent Auto 7.5 % (18.3-44.2); Mean Corpuscular HGB Conc 30.6 g/dl (32-36); Mean Corpuscular Hemoglobin 28.8 pg (26-34); Mean Corpuscular Volume 94.2 fl (80-100); Mean Platelet Volume 11.1 fl (7.4-10.4); Monocytes Absolute Auto 1.6 K/mm3 (0.1-0.6); Monocytes Percent Auto 4.7 % (2.6-8.5); Neutrophils Absolute Auto 27.2 K/mm3 (1.3-6.7); Neutrophils Percent Auto 80.6 % (45.5-73.1); Nucleated Red Blood Cells Absolute Auto 0.1 K/mm3 (0.0-0.012); Nucleated Red Blood Cells Perc 0.2 % (0.0-0.2); Platelet Count Result 300 k/mm3 (150-375); Red Blood Count 3.47 M/mm3 (4.2-5.4); Red Cell Distribution Width 13.8 % (11.5-14.5); White Blood Count 33.8 K/mm3 (4.5-10.0)
[2021-01-22 05:49] LABS: Alveolar/Arterial O2 Gradient 338.7 mmHg; Base Excess ABG 8.2 mEq/l (+/-2.0); Fractional Inspired Oxygen 70 %; HCO3 ABG 39.6 mEq/l (22.0-26.0); Oxygen Content ABG 23.6 %vol (16.0-22.0); Oxygen Saturation ABG 91.3 % (95.0-100.0); Oxyhemoglobin 91.3 % THb (90.0-100.0); PO2 ABG 70.1 mmHg (80.0-100.0); Total Hemoglobin 18.4 g/dL (12.0-18.0)
[2021-01-22 05:52] LABS: pH ABG 7.291 (7.350-7.450)
[2021-01-22 05:53] LABS: Device VENTILATOR; Modified Allen's Test Pass; Site Drawn RIGHT RADIAL
[2021-01-22 05:54] LABS: Arterial Blood Gas PEEP 10 cmH2O; Arterial Blood Gas Tidal Volume 340 ml; Arterial Blood Gas Vent Mode CMV; Arterial Blood Gas Ventilator rate 26 /MIN
[2021-01-22] MEDS: CENTRAL LINE FLUSH 10 ML IV PUSH ×3 (06:16→20:59)
[2021-01-22 06:23] LABS: Alanine Aminotransferase 180 U/L (4-35); Albumin Level 3.3 g/dL (3.5-5.1); Alkaline Phosphatase 176 U/L (38-126); Aspartate Amino Transferase 53 U/L (14-36); Bilirubin,Total 0.4 mg/dL (0.2-1.3); Blood Urea Nitrogen 26 mg/dL (7-17); Calcium 9.3 mg/dL (8.4-10.2); Carbon Dioxide > 40 mmol/L (22-30); Chloride 93 mmol/L (98-107); Estimated CRCL calculation 81 ml/min; Estimated Glomerular Filt Rate > 60; Glucose 115 mg/dL (65-110); Phosphorus 5.1 mg/dL (2.5-4.5); Potassium 4.4 mmol/L (3.4-5.0); Sodium 138 mmol/L (137-145)
[2021-01-22 07:00] LABS: Glucose Point of Care 119 mg/dl (65-105)
[2021-01-22] MEDS: BUDESONIDE RESPULE NEB 0.5 MG/2 ML AMP INHALATION ×2 (07:30→19:57)
[2021-01-22] MEDS: FENTANYL 2,500MCG/NS250ML(*CRX 2,500 MCG/250 ML BAG 17.5 MCG IV CONT ×2 (09:14→23:51)
[2021-01-22] MEDS: VITAMIN B COMPLEX/VIT C CAPSULE 1 EACH PO (09:16)
[2021-01-22] MEDS: SACCHAROMYCES BOULARDII 250 MG CAPSULE PO ×2 (09:16→17:04)
[2021-01-22] MEDS: ZINC SULFATE 220 MG CAPSULE PO ×2 (09:16→17:04)
[2021-01-22] MEDS: CHOLECALCIFEROL 1,000 UNITS TABLET 2000 UNITS BY MOUTH (09:17)
[2021-01-22] MEDS: MINERAL OIL/WHITE PETROLATUM OINTMENT 1 APPLIC EACH EYE ×2 (09:17→20:59)
[2021-01-22] MEDS: ASCORBIC ACID 500 MG TABLET 1000 MG PO ×2 (09:17→17:04)
[2021-01-22] MEDS: FAMOTIDINE 20 MG/2 ML VIAL IV PUSH ×2 (09:17→20:59)
[2021-01-22] MEDS: ENOXAPARIN 40 MG/0.4 ML SYRINGE SUB-Q (09:17)
[2021-01-22] MEDS: methylPREDNISolone SOD SUCC 40 MG VIAL IV PUSH (09:18)
--- NOTE | 2021-01-22 09:42 | WPDINTPN ---
Progress Note: A&P Assessment and Plan (1) Acute respiratory failure with hypoxia: Code(s): J96.01 - Acute respiratory failure with hypoxia Status: Acute Assessment and Plan: Acute hypoxic respiratory failure secondary to COVID-19 pneumonia. Over the course she has developed increasing oxygen requirements, transferred to the ICU on 01/12/2021 -was on BiPAP 12/6 and 100%. Intubated 01/13 -ABG reviewed. Hypercapnia and contraction alkalosis, ventilator adjusted, I to E ratio was increased -currently on peep of 10 and 70% FiO2, FiO2 requirements increased overnight 1 turning the patient, start weaning FiO2 as tolerated since patient is saturating well - patient was ventilated in prone position daily for 1st few days. currently tolerating supine position. will re-evaluate continued need for prone ventilation daily -chest x-ray: 01/22/2021 -diffuse bilateral lung disease consistent COVID pneumonia, small amount of pneumomediastinum with no pneumothorax, decrease in chest wall soft tissue gas -EEG showed severe hypercapnic respiratory acidosis. Could be related to Diamox, increased rate and expiratory time. Will hold Diamox and diurese with Bumex today -patient is off Nimbex, remains on fentanyl and Versed for sedation -ordered bronchodilators and Pulmicort (2) Pneumonia due to COVID-19 virus: Code(s): U07.1 - COVID-19; J12.82 - Pneumonia due to coronavirus disease 2019 Status: Acute Assessment and Plan: Patient tested positive for COVID on 12/25/2020. Patient is unvaccinated -she is status post Remdesivir, dexamethasone -status post azithromycin and ceftriaxone - completed a course of Baricitinib for 14 days -she is on Solu-Medrol -on vitamin-C, vitamin-D and zinc. Patient also on melatonin, -at home patient was also taking hydroxychloroquine -upon admission to the ICU, patient's was demanding to start method of ivermectin, prednisolone, nitazoxanide, fluvoxamine, cyproheptadine, famotidine, discussed with the in details and explained to him that the is no appropriate and official data regarding these medications, in then over the in patients with COVID-19, he did comprehend -continue airborne, droplet, contact isolation precaution (3) Pneumomediastinum: Code(s): J98.2 - Interstitial emphysema Status: Acute Assessment and Plan: Small area suggestive of new mediastinum on chest x-ray today likely secondary to noninvasive positive pressure ventilation - chest x-ray continues to reveal small pneumomediastinum but no pneumothorax Continue to monitor at this time (4) Pneumothorax on right: Onset Date: ~01/14/21 Code(s): J93.9 - Pneumothorax, unspecified Status: Acute Assessment and Plan: Status post chest tube placement by General surgery Chest tube is on suction No air leak at this time -no residual pneumothorax, chest x-ray (5) Acidosis: Code(s): E87.2 - Acidosis Status: Acute Assessment and Plan: Respiratory acidosis secondary to permissive hypercapnia which is acceptable, could also be related Diamox, ventilator adjusted, (6) Shock: Code(s): R57.9 - Shock, unspecified Status: Acute Assessment and Plan: Likely secondary to sedation and hypovolemia Off Levophed since 01/20/2021 -01/10/2021: Blood cultures and urine cultures have been negative so far (7) Leukocytosis: Code(s): D72.829 - Elevated white blood cell count, unspecified Status: Acute Assessment and Plan: Likely secondary to steroid -01/22/2021 WBC count has increased to 33.8, will panculture -patient currently afebrile She has completed a course of Rocephin and azithromycin (8) Tachycardia: Code(s): R00.0 - Tachycardia, unspecified Status: Acute Assessment and Plan: patient in sinus rhythm, with rates in the 80s to 90s bronchodilators have been changed to p.r.n. - (9) DVT prophylaxis:
[2021-01-22] MEDS: BUMETANIDE INJ 1 MG/4 ML VIAL IV PUSH (09:50)
[2021-01-22 10:21] LABS: Lipase 239 U/L (23-300)
[2021-01-22 10:24] LABS: Add Urine Microscopic? YES; Appearance Urine Turbid (Clear); Bilirubin Urine Negative (Negative); Blood Urine 3+ (Negative); Color Urine Yellow (Yellow); Glucose Urine UA Negative (Negative); Ketones Urine Negative (Negative); Leukocyte Esterase Ur Trace LEU/UL (NEGATIVE); Nitrate Urine Positive (Negative); Protein Urine 1+ mg/dL (Negative); RBC Urine >75 /hpf (0-2); Specific Grav Ur 1.014 (1.001-1.035); WBC Urine 51-75 /hpf (0-3)
[2021-01-22 11:11] LABS: Hepatitis B Surface Antigen Negative (Negative)
[2021-01-22] MEDS: PROPOFOL IV EMULSION 100 ML 2.24 MG IV CONT (11:16)
--- NOTE | 2021-01-22 11:16 | PCDIET ---
ICU Rounding Note: Patient tolerating Vital 1.2 at 50mL/hr goal with 30mL water flush every 4 hours. Last recorded weight is 74.7kg which is down from last review. -I/O. Bowel Motility: Last documented BM on 01/17/21. Discussed during rounds. RN to give prn medication to promote BM. Labs Reviewed: WBC (33.8), RBC (3.47), Hgb (10.0), Hct (32.7), Glu (119), BUN (26), Cr (0.6), Alb (3.3), PO4 (5.1) Meds Noted: Atrovent, Xopenex, Reglan, Vitamin C, Pulmicort, Pepcid, Fentanyl, Solu Medrol, Versed, Florastor, Allbee W/C, Vitamin D, Zinc Sulfate, prn Miralax, prn Dulcolax Additional Notes: No documented skin breakdown. Following daily in ICU rounds. Assessing/reassessing every Tuesday/Tuesday.
[2021-01-22 11:17] LABS: HAV RESULT Negative (Negative); Hepatitis B Core IgM Result Negative (Negative)
[2021-01-22 11:29] LABS: Hepatitis C Virus Antibody Negative (Negative)
[2021-01-22 12:30] LABS: Alveolar/Arterial O2 Gradient 344.6 mmHg; Base Excess ABG 10.3 mEq/l (+/-2.0); Fractional Inspired Oxygen 70 %; Oxygen Content ABG 14.3 %vol (16.0-22.0); Oxygen Saturation ABG 94.8 % (95.0-100.0); Oxyhemoglobin 93.9 % THb (90.0-100.0); PO2 ABG 79.5 mmHg (80.0-100.0); PO2 FiO2 Ratio Arterial Blood 1.14 %; Total Hemoglobin 10.8 g/dL (12.0-18.0); pH ABG 7.354 (7.350-7.450)
[2021-01-22 12:32] LABS: Arterial Blood Gas Vent Mode CMV; Arterial Blood Gas Ventilator rate 28 /MIN; Device VENTILATOR; Modified Allen's Test Pass; PCO2 ABG 69.8 mmHg (35.0-45.0); Site Drawn LEFT RADIAL
[2021-01-22 12:33] LABS: Arterial Blood Gas PEEP 10 cmH2O; Arterial Blood Gas Tidal Volume 340 ml
[2021-01-22] MEDS: INSULIN ASPART (*BKC) 100 UNITS/ML SUB-Q (12:35)
[2021-01-22 13:07] LABS: Glucose Point of Care 204 mg/dl (65-105)
--- NOTE | 2021-01-22 15:57 | PM.IMPN ---
Progress Note: A&P Assessment and Plan (1) Acute respiratory failure with hypoxia: Code(s): J96.01 - Acute respiratory failure with hypoxia Status: Acute Assessment and Plan: Patient with acute respiratory failure secondary to COVID pneumonia. CTA of the chest 12/30 showing no central pulmonary embolus identified (sensitivity limited by motion artifact) and patchy bilateral airspace opacities have pattern consistent with COVID-19 pneumonia. Oxygen requirement worsened requiring intubation on 01/13 despite aggressive medical treatment. She remains intubated and sedated. Continue to wean vent as tolerated. Appreciate foil wrapper input. Discussed (2) Shock: Code(s): R57.9 - Shock, unspecified Status: Acute Assessment and Plan: Patient became hypotensive on 01/14 requiring Levophed. Hypotension felt related to sedation and hypovolemia. IV fluid given. BCx 01/10 NGTD. Off all abx. Able to be weaned off Levophed 01/15. Did require Levophed again 01/20 for soft BP but able to wean off later that same day. Continue to follow. (3) Pneumothorax on right: Onset Date: ~01/14/21 Code(s): J93.9 - Pneumothorax, unspecified Status: Acute Assessment and Plan: Patietn with PTX on the right with CT in place. CXR today reviewed showing no PTX. Management per general surgery. (4) Pneumomediastinum: Code(s): J98.2 - Interstitial emphysema Status: Acute Assessment and Plan: Patient with evidence of pneumomediastinum by CXR with SQ crepitus. Remaining stable. CXR today reviewed showing resolving pneumomediastinum and improvement in the SQ emphysema. Continue daily CXR. (5) Pneumonia due to COVID-19 virus: Code(s): U07.1 - COVID-19; J12.82 - Pneumonia due to coronavirus disease 2019 Status: Acute Assessment and Plan: Patient did not receive a COVID vaccination. She was exposed to an individual who was COVID positive. She did come in on hydroxychloroquine, zinc, vitamin-C and D from home. She began to have symptoms around 12/24/20. She was COVID positive (rapid) on 12/25/20 when in the ED. Returned to ED on 12/30 for worsening symtpms and was admitted. She has since completed Remdesivir, Dexamethasone and Baricitinib. Convalescent plasma given 01/04/21. Vit C,D, and zinc are on-board. Lasix 40mg IV daily x 3 doses given 01/03- and once again 01/19. Completed a course of Azithromycin as well. demanded that his be treated with Solu-Medrol, Vit C and Ivermectin. Explained that Ivermectin was not standard of care but we did proceed with the other treatment. She remains on Solu-Medrol, Xopenex/Atrovent, Pulmicort, Vit C/Zinc/Vit D. Continue supportive care. (6) Acute respiratory acidosis: Code(s): E87.2 - Acidosis Status: Acute Assessment and Plan: pH was 7.16 and NaBicarb IV given 01/15. Allowing for permissive hypercapnia. Serum bicarb >40 treated with Diamox x2 doses 01/21. pH worse with more elevated pCO2. Vent adjusted. Appreciate foil wrapper input (7) Transaminitis: Code(s): R74.01 - Elevation of levels of liver transaminase levels Status: Acute Assessment and Plan: Liver enzymes elevated on admission felt secondary to COVID. Hepatitis panel negative. Levels normalized but increased again on 01/15. Etiology unclear. BP soft at times so consider transient HoTN or intermittent acidosis as the etiology of the flucuating liver tests. Levels higher again today. RUQ US showing no acute findings. Continue to monitor. (8) Hyponatremia: Code(s): E87.1 - Hypo-osmolality and hyponatremia Status: Acute Assessment and Plan: Sodium low on admission and has mostly remained low to normal range. (9) Gastroesophageal reflux disease: Code(s): K21.9 - Gastro-esophageal reflux disease without esophagitis Status: Acute Assessment and Plan: Stable. Continue Pepcid. (10) DVT p
[2021-01-22] MEDS: MIDAZOLAM 100MG/NS 100ML(*CRX) 100 MG/100 ML BAG 6 MG IV CONT (16:12)
[2021-01-22] MEDS: polyethylene glycoL 3350 17 GM POWD.PACK PO (17:03)
[2021-01-22 17:29] LABS: Glucose Point of Care 174 mg/dl (65-105)
--- NOTE | 2021-01-22 21:25 | PC.NURSE ---
Attempted to return call to daughter Rgeina - message left with call back number.
[2021-01-22] MEDS: PROPOFOL IV EMULSION 100 ML 8.96 MG IV CONT (22:43)
--- NOTE | 2021-01-22 23:31 | PC.NURSE ---
Spoke with daughter Regina updated on patient condition.
[2021-01-23] VITALS (34 sets, daily range): BP systolic 84–176; BP diastolic 45–93; PULSE 88–149; RESP 17–34; TEMP 37.2–37.6; O2SAT 87–100
[2021-01-23] LABS: Glucose Point of Care 138 mg/dl (65-105)
[2021-01-23 05:21] LABS: Hematocrit 28.3 % (37.0-47.0); Hemoglobin 8.9 g/dL (12.0-15.0); Mean Corpuscular HGB Conc 31.4 g/dl (32-36); Mean Corpuscular Hemoglobin 28.5 pg (26-34); Mean Corpuscular Volume 90.7 fl (80-100); Mean Platelet Volume 11.6 fl (7.4-10.4); Platelet Count Result 233 k/mm3 (150-375); Red Blood Count 3.12 M/mm3 (4.2-5.4); Red Cell Distribution Width 13.6 % (11.5-14.5); White Blood Count 23.9 K/mm3 (4.5-10.0)
[2021-01-23 05:41] LABS: Base Excess ABG 14.9 mEq/l (+/-2.0); Fractional Inspired Oxygen 60 %; HCO3 ABG 42.8 mEq/l (22.0-26.0); Oxygen Saturation ABG 94.9 % (95.0-100.0); Oxyhemoglobin 94.2 % THb (90.0-100.0); PCO2 ABG 76.2 mmHg (35.0-45.0); PO2 FiO2 Ratio Arterial Blood 1.33 %; Total Hemoglobin 9.7 g/dL (12.0-18.0); pH ABG 7.367 (7.350-7.450)
[2021-01-23 05:41] LABS: Alanine Aminotransferase 170 U/L (4-35); Alkaline Phosphatase 175 U/L (38-126); Aspartate Amino Transferase 51 U/L (14-36); Bilirubin,Total 0.2 mg/dL (0.2-1.3); Blood Urea Nitrogen 26 mg/dL (7-17); Calcium 8.7 mg/dL (8.4-10.2); Carbon Dioxide > 40 mmol/L (22-30); Chloride 89 mmol/L (98-107); Estimated CRCL calculation 114 ml/min; Estimated Glomerular Filt Rate > 60; Glucose 143 mg/dL (65-110); Magnesium 1.9 mg/dL (1.6-2.3); Phosphorus 3.9 mg/dL (2.5-4.5); Potassium 3.7 mmol/L (3.4-5.0); Sodium 135 mmol/L (137-145)
[2021-01-23 05:42] LABS: Arterial Blood Gas PEEP 10 cmH2O; Arterial Blood Gas Tidal Volume 340 ml; Arterial Blood Gas Vent Mode CMV; Arterial Blood Gas Ventilator rate 28 /MIN; Device VENTILATOR; Modified Allen's Test Pass; Site Drawn RIGHT RADIAL
[2021-01-23 05:53] LABS: Band Neutrophils Percent 6 % (0-6); Lymphocytes Absolute Manual 1.91 K/mm3 (1.1-4.5); Metamyelocytes Percent 1 %; Monocytes Absolute Manual 1.43 K/mm3 (0.1-0.90); Monocytes Percent Manual 6 % (3-9); Neutrophils Absolute Manual 20.31 K/mm3 (1.7-7.2); Neutrophils Percent Manual 79 % (46-73); Platelet Estimate Adequate (Adequate); Total Cells Counted 100
[2021-01-23] MEDS: METOCLOPRAMIDE HCL 10 MG/10 ML SOLN UDC PO ×4 (07:12→23:40)
[2021-01-23] MEDS: CENTRAL LINE FLUSH 10 ML IV PUSH ×3 (07:12→20:23)
[2021-01-23] MEDS: BUDESONIDE RESPULE NEB 0.5 MG/2 ML AMP INHALATION ×2 (08:27→21:39)
[2021-01-23] MEDS: MIDAZOLAM 100MG/NS 100ML(*CRX) 100 MG/100 ML BAG 6 MG IV CONT (08:59)
[2021-01-23] MEDS: ASCORBIC ACID 500 MG TABLET 1000 MG PO ×2 (09:34→17:19)
[2021-01-23] MEDS: SACCHAROMYCES BOULARDII 250 MG CAPSULE PO ×2 (09:35→17:19)
[2021-01-23] MEDS: ZINC SULFATE 220 MG CAPSULE PO ×2 (09:35→17:19)
[2021-01-23] MEDS: methylPREDNISolone SOD SUCC 40 MG VIAL IV PUSH (09:35)
[2021-01-23] MEDS: VITAMIN B COMPLEX/VIT C CAPSULE 1 EACH PO (09:35)
[2021-01-23] MEDS: polyethylene glycoL 3350 17 GM POWD.PACK PO (09:35)
[2021-01-23] MEDS: MINERAL OIL/WHITE PETROLATUM OINTMENT 1 APPLIC EACH EYE ×2 (09:35→20:23)
[2021-01-23] MEDS: CHOLECALCIFEROL 1,000 UNITS TABLET 2000 UNITS BY MOUTH (09:36)
[2021-01-23] MEDS: ENOXAPARIN 40 MG/0.4 ML SYRINGE SUB-Q (09:36)
[2021-01-23] MEDS: FAMOTIDINE 20 MG/2 ML VIAL IV PUSH ×2 (09:36→20:23)
[2021-01-23] MEDS: PROPOFOL IV EMULSION 100 ML 8.96 MG IV CONT (09:43)
[2021-01-23 11:36] LABS: Glucose Point of Care 154 mg/dl (65-105)
--- NOTE | 2021-01-23 12:01 | WPDINTPN ---
Progress Note: A&P Assessment and Plan (1) Acute respiratory failure with hypoxia: Code(s): J96.01 - Acute respiratory failure with hypoxia Status: Acute Assessment and Plan: Acute hypoxic respiratory failure secondary to COVID-19 pneumonia. Over the course she has developed increasing oxygen requirements, transferred to the ICU on 01/12/2021 -was on BiPAP 12/6 and 100%. Intubated 01/13 -ABG reviewed. Hypercapnia and contraction alkalosis, ventilator adjusted, I to E ratio was increased -currently on peep of 10 and 70% FiO2, FiO2 requirements increased overnight turning the patient, - patient was ventilated in prone position daily for 1st few days. currently tolerating supine position. will re-evaluate continued need for prone ventilation daily -chest x-ray: 01/22/2021 -diffuse bilateral lung disease consistent COVID pneumonia, small amount of pneumomediastinum with no pneumothorax, decrease in chest wall soft tissue gas -EEG showed severe hypercapnic respiratory acidosis. Could be related to Diamox, increased rate and expiratory time. Will hold Diamox and diurese with Bumex today -patient is off Nimbex, remains on fentanyl and Versed for sedation -ordered bronchodilators and Pulmicort (2) Pneumonia due to COVID-19 virus: Code(s): U07.1 - COVID-19; J12.82 - Pneumonia due to coronavirus disease 2019 Status: Acute Assessment and Plan: Patient tested positive for COVID on 12/25/2020. Patient is unvaccinated -she is status post Remdesivir, dexamethasone -status post azithromycin and ceftriaxone - completed a course of Baricitinib for 14 days -she is on Solu-Medrol -on vitamin-C, vitamin-D and zinc. Patient also on melatonin, -at home patient was also taking hydroxychloroquine -upon admission to the ICU, patient's was demanding to start method of ivermectin, prednisolone, nitazoxanide, fluvoxamine, cyproheptadine, famotidine, discussed with the in details and explained to him that the is no appropriate and official data regarding these medications, in then over the in patients with COVID-19, he did comprehend -continue airborne, droplet, contact isolation precaution (3) Pneumomediastinum: Code(s): J98.2 - Interstitial emphysema Status: Acute Assessment and Plan: Small area suggestive of new mediastinum on chest x-ray today likely secondary to noninvasive positive pressure ventilation - chest x-ray continues to reveal small pneumomediastinum but no pneumothorax Continue to monitor at this time (4) Pneumothorax on right: Onset Date: ~01/14/21 Code(s): J93.9 - Pneumothorax, unspecified Status: Acute Assessment and Plan: Status post chest tube placement by General surgery Chest tube is on suction No air leak at this time -no residual pneumothorax, chest x-ray (5) Acidosis: Code(s): E87.2 - Acidosis Status: Acute Assessment and Plan: Respiratory acidosis secondary to permissive hypercapnia which is acceptable, could also be related Diamox, ventilator adjusted, (6) Shock: Code(s): R57.9 - Shock, unspecified Status: Acute Assessment and Plan: Likely secondary to sedation and hypovolemia Off Levophed since 01/20/2021 -01/10/2021: Blood cultures and urine cultures have been negative so far (7) Leukocytosis: Code(s): D72.829 - Elevated white blood cell count, unspecified Status: Acute Assessment and Plan: Likely secondary to steroid -01/22/2021 WBC count has increased to 33.8, - 01/22/2021 Blood cultures - 01/22/2021: Urine -patient currently afebrile She has completed a course of Rocephin and azithromycin (8) Tachycardia: Code(s): R00.0 - Tachycardia, unspecified Status: Acute Assessment and Plan: patient in sinus rhythm, with rates in the 80s to 90s bronchodilators have been changed to p.r.n. (9) DVT prophylaxis: Code(s): Z29.9 - Encounter
--- NOTE | 2021-01-23 13:35 | PCDIET ---
Nutrition Follow-Up Complete: Nutrition Diagnosis: Suboptimal oral intake related to COVID as evidenced by average intake of 65% of recorded meals over last week with inability to eat breakfast today. Nutrition Goal: Patient to meet estimated nutritional needs. Goal met. Patient tolerating Vital 1.2 at 50mL/hr goal rate with 30mL water flush every 4 hours. Residuals 130mL and below. Last recorded weight is 74.9 kg which is stable with last review. Bowel Motility: RN reporting gas, but no significant BM since 01/17/21. Discussed during rounds. Dulcolax prn ordered. Labs Reviewed: WBC (2.39), RBC (3.12), Hgb (8.9), Hct (28.3), Glu (143), BUN (26), Cr (0.4), Na (135), Alb (3.0) Meds Noted: Vitamin C, Pulmicort, Rocephin, Pepcid, Fentanyl, Dulcolax prn, Solu Medrol, Reglan, Versed, Miralax, Florastor, Zinc Sulfate, Vitamin D, Allbee W/C, Propofol (rate of 8.964mL/hr provides 237kcal per day) Additional Notes: No skin breakdown documented. Will continue to monitor with same goal. Nutrition Monitoring and Evaluation: Follow up every Tuesday/Tuesday.
[2021-01-23] MEDS: FENTANYL 2,500MCG/NS250ML(*CRX 2,500 MCG/250 ML BAG 17.5 MCG IV CONT (14:52)
[2021-01-23] MEDS: PROPOFOL IV EMULSION 100 ML 13.45 MG IV CONT (17:16)
--- NOTE | 2021-01-23 17:37 | PM.IMPN ---
Progress Note: A&P Assessment and Plan (1) Acute respiratory failure with hypoxia: Code(s): J96.01 - Acute respiratory failure with hypoxia Status: Acute Assessment and Plan: Patient with acute respiratory failure secondary to COVID pneumonia. CTA of the chest 12/30 showing no central pulmonary embolus identified (sensitivity limited by motion artifact) and patchy bilateral airspace opacities have pattern consistent with COVID-19 pneumonia. Oxygen requirement worsened requiring intubation on 01/13 despite aggressive medical treatment. She remains intubated and sedated. Worsening hypoxia with tachycardia. Consider seizures. Continue to wean vent as tolerated. Appreciate janitorial supervisor input. Lorazepam once. (2) Shock: Code(s): R57.9 - Shock, unspecified Status: Acute Assessment and Plan: Patient became hypotensive on 01/14 requiring Levophed. Hypotension felt related to sedation and hypovolemia. IV fluid given. BCx 01/10 negative; BCx repeated 01/22 and are NGTD. Able to be weaned off Levophed 01/15. Did require Levophed again 01/20 for soft BP but able to wean off later that same day. UCx now growing Proteus. Contineu Rocephin. Continue to follow. (3) Pneumothorax on right: Onset Date: ~01/14/21 Code(s): J93.9 - Pneumothorax, unspecified Status: Acute Assessment and Plan: Patietn with PTX on the right with CT in place. CXR today reviewed showing no PTX. Management per general surgery. (4) Pneumomediastinum: Code(s): J98.2 - Interstitial emphysema Status: Acute Assessment and Plan: Patient with evidence of pneumomediastinum by CXR with SQ crepitus. Remaining stable. CXR today reviewed showing resolving pneumomediastinum and improvement in the SQ emphysema. Continue daily CXR. (5) Pneumonia due to COVID-19 virus: Code(s): U07.1 - COVID-19; J12.82 - Pneumonia due to coronavirus disease 2019 Status: Acute Assessment and Plan: Patient did not receive a COVID vaccination. She was exposed to an individual who was COVID positive. She did come in on hydroxychloroquine, zinc, vitamin-C and D from home. She began to have symptoms around 12/24/20. She was COVID positive (rapid) on 12/25/20 when in the ED. Returned to ED on 12/30 for worsening symptoms and was admitted. She has since completed Remdesivir, Dexamethasone and Baricitinib. Convalescent plasma given 01/04/21. Vit C,D, and zinc are on-board. Lasix 40mg IV daily x 3 doses given 01/03- and once again 01/19. Completed a course of Azithromycin as well. demanded that his be treated with Solu-Medrol, Vit C and Ivermectin. Explained that Ivermectin was not standard of care but we did proceed with the other treatment. She remains on Solu-Medrol, Xopenex/Atrovent, Pulmicort, Vit C/Zinc/Vit D. Continue supportive care. (6) Acute respiratory acidosis: Code(s): E87.2 - Acidosis Status: Acute Assessment and Plan: pH was 7.16 and NaBicarb IV given 01/15. Allowing for permissive hypercapnia. Serum bicarb >40 treated with Diamox x2 doses 01/21. pH normal now. Vent adjustments per janitorial supervisor. Appreciate janitorial supervisor input (7) Transaminitis: Code(s): R74.01 - Elevation of levels of liver transaminase levels Status: Acute Assessment and Plan: Liver enzymes elevated on admission felt secondary to COVID. Hepatitis panel negative. RUQ US showing no acute findings. Levels normalized but increased again on 01/15. Etiology unclear. BP soft at times so consider transient HoTN or intermittent acidosis as the etiology of the flucuating liver tests. Levels slightly better today. Continue to monitor. (8) Hyponatremia: Code(s): E87.1 - Hypo-osmolality and hyponatremia Status: Acute Assessment and Plan: Sodium low on admission and has mostly remained low to normal range. (9) Gastroesophageal reflux disease: Code(s): K21.9 - Gastro-esoph
[2021-01-23 17:43] LABS: Glucose Point of Care 185 mg/dl (65-105)
[2021-01-23] MEDS: LORazepam INJ (*CRX) 2 MG/ML VIAL 1 MG IV PUSH (17:55)
[2021-01-23] MEDS: PROPOFOL IV EMULSION 100 ML 11.21 MG IV CONT (23:40)
[2021-01-24] VITALS (42 sets, daily range): BP systolic 78–152; BP diastolic 43–76; PULSE 78–137; RESP 9–30; TEMP 37.3–37.7; O2SAT 88–99
[2021-01-24 00:46] LABS: Glucose Point of Care 139 mg/dl (65-105)
[2021-01-24] MEDS: MIDAZOLAM 100MG/NS 100ML(*CRX) 100 MG/100 ML BAG 7 MG IV CONT ×2 (03:17→17:32)
[2021-01-24 03:59] LABS: Hematocrit 27.2 % (37.0-47.0); Hemoglobin 8.6 g/dL (12.0-15.0); Mean Corpuscular HGB Conc 31.6 g/dl (32-36); Mean Corpuscular Hemoglobin 28.8 pg (26-34); Mean Platelet Volume 10.8 fl (7.4-10.4); Platelet Count Result 242 k/mm3 (150-375); Red Blood Count 2.99 M/mm3 (4.2-5.4); Red Cell Distribution Width 13.7 % (11.5-14.5); White Blood Count 18.7 K/mm3 (4.5-10.0)
[2021-01-24 04:13] LABS: Alanine Aminotransferase 180 U/L (4-35); Albumin Level 2.9 g/dL (3.5-5.1); Alkaline Phosphatase 161 U/L (38-126); Aspartate Amino Transferase 61 U/L (14-36); Bilirubin,Total 0.2 mg/dL (0.2-1.3); Blood Urea Nitrogen 22 mg/dL (7-17); Calcium 8.6 mg/dL (8.4-10.2); Carbon Dioxide > 40 mmol/L (22-30); Chloride 90 mmol/L (98-107); Estimated CRCL calculation 114 ml/min; Estimated Glomerular Filt Rate > 60; Glucose 134 mg/dL (65-110); Magnesium 1.9 mg/dL (1.6-2.3); Phosphorus 2.6 mg/dL (2.5-4.5); Potassium 3.5 mmol/L (3.4-5.0); Sodium 135 mmol/L (137-145)
[2021-01-24 05:12] LABS: Band Neutrophils Percent 1 % (0-6); Hypochromasia 2+ (NORMAL); Lymphocytes Absolute Manual 1.68 K/mm3 (1.1-4.5); Monocytes Absolute Manual 0.93 K/mm3 (0.1-0.90); Monocytes Percent Manual 5 % (3-9); Neutrophils Absolute Manual 16.08 K/mm3 (1.7-7.2); Neutrophils Percent Manual 85 % (46-73); Platelet Estimate Adequate (Adequate); Total Cells Counted 100
[2021-01-24] MEDS: PROPOFOL IV EMULSION 100 ML 22.41 MG IV CONT ×4 (05:19→22:58)
[2021-01-24] MEDS: METOCLOPRAMIDE HCL 10 MG/10 ML SOLN UDC PO ×4 (05:22→23:16)
[2021-01-24] MEDS: CENTRAL LINE FLUSH 10 ML IV PUSH ×3 (05:22→21:02)
[2021-01-24 06:21] LABS: Alveolar/Arterial O2 Gradient 292.1 mmHg; Base Excess ABG 15.9 mEq/l (+/-2.0); Carboxyhemoglobin 0.2 % THb (0-2.0); Fractional Inspired Oxygen 60 %; HCO3 ABG 40.2 mEq/l (22.0-26.0); Methemoglobin ABG 0.4 %THb (0-1.5); Oxygen Content ABG 12.4 %vol (16.0-22.0); Oxyhemoglobin 95.2 % THb (90.0-100.0); PCO2 ABG 48.2 mmHg (35.0-45.0); PO2 ABG 82.7 mmHg (80.0-100.0); PO2 FiO2 Ratio Arterial Blood 1.38 %; Reduced Hemoglobin 4.2 %THb (0-5.0); Total Hemoglobin 9.2 g/dL (12.0-18.0)
[2021-01-24 06:23] LABS: Modified Allen's Test Pass; Site Drawn RIGHT RADIAL; pH ABG 7.539 (7.350-7.450)
[2021-01-24 06:24] LABS: Arterial Blood Gas PEEP 10 cmH2O; Arterial Blood Gas Vent Mode CMV; Arterial Blood Gas Ventilator rate 28 /MIN; Device VENTILATOR
[2021-01-24 06:25] LABS: Arterial Blood Gas Tidal Volume 340 ml
[2021-01-24] MEDS: FENTANYL 2,500MCG/NS250ML(*CRX 2,500 MCG/250 ML BAG 17.5 MCG IV CONT ×2 (06:39→20:59)
[2021-01-24] MEDS: CHOLECALCIFEROL 1,000 UNITS TABLET 2000 UNITS BY MOUTH (08:27)
[2021-01-24] MEDS: methylPREDNISolone SOD SUCC 40 MG VIAL IV PUSH (08:27)
[2021-01-24] MEDS: SACCHAROMYCES BOULARDII 250 MG CAPSULE PO ×2 (08:27→17:31)
[2021-01-24] MEDS: VITAMIN B COMPLEX/VIT C CAPSULE 1 EACH PO (08:27)
[2021-01-24] MEDS: FAMOTIDINE 20 MG/2 ML VIAL IV PUSH ×2 (08:27→21:02)
[2021-01-24] MEDS: ZINC SULFATE 220 MG CAPSULE PO ×2 (08:27→17:31)
[2021-01-24] MEDS: MINERAL OIL/WHITE PETROLATUM OINTMENT 1 APPLIC EACH EYE ×2 (08:27→21:02)
[2021-01-24] MEDS: ASCORBIC ACID 500 MG TABLET 1000 MG PO ×2 (08:27→17:31)
[2021-01-24] MEDS: ENOXAPARIN 40 MG/0.4 ML SYRINGE SUB-Q (08:28)
[2021-01-24] MEDS: polyethylene glycoL 3350 17 GM POWD.PACK PO (08:29)
[2021-01-24] MEDS: PROPOFOL IV EMULSION 100 ML 17.93 MG IV CONT (08:39)
--- NOTE | 2021-01-24 11:49 | WPDINTPN ---
Progress Note: A&P Assessment and Plan (1) Acute respiratory failure with hypoxia: Code(s): J96.01 - Acute respiratory failure with hypoxia Status: Acute Assessment and Plan: Acute hypoxic respiratory failure secondary to COVID-19 pneumonia. Over the course she has developed increasing oxygen requirements, transferred to the ICU on 01/12/2021 -was on BiPAP / and 100%. Intubated 01/13 -ABG reviewed. Ventilator adjusted, decreased respiratory rate -currently on a PEEP of 10 and 60% FiO2, patient tachycardic, O2 sats decreasing will increase PEEP and FiO2 to maintain O2 sats greater than 92% - patient was ventilated in prone position daily for 1st few days. currently tolerating supine position. will re-evaluate continued need for prone ventilation daily -chest x-ray: 01/24/2021: Diffuse bilateral airspace disease which may represent pneumonia or edema -patient auto diuresing well with negative fluid balance -patient remains on fentanyl, Versed and propofol infusion -continue bronchodilators and Pulmicort (2) Pneumonia due to COVID-19 virus: Code(s): U07.1 - COVID-19; J12.82 - Pneumonia due to coronavirus disease 2019 Status: Acute Assessment and Plan: Patient tested positive for COVID on 12/25/2020. Patient is unvaccinated -she is status post Remdesivir, dexamethasone -status post azithromycin and ceftriaxone - completed a course of Baricitinib for 14 days -she is on Solu-Medrol -on vitamin-C, vitamin-D and zinc. Patient also on melatonin, -at home patient was also taking hydroxychloroquine -upon admission to the ICU, patient's was demanding to start method of ivermectin, prednisolone, nitazoxanide, fluvoxamine, cyproheptadine, famotidine, discussed with the in details and explained to him that the is no appropriate and official data regarding these medications, in then over the in patients with COVID-19, he did comprehend -continue airborne, droplet, contact isolation precaution (3) Pneumomediastinum: Code(s): J98.2 - Interstitial emphysema Status: Acute Assessment and Plan: Small area suggestive of new mediastinum on chest x-ray today likely secondary to noninvasive positive pressure ventilation -no pneumomediastinum or pneumothorax on chest x-ray on 01/24/2021 Continue to monitor at this time (4) Pneumothorax on right: Onset Date: ~01/14/21 Code(s): J93.9 - Pneumothorax, unspecified Status: Acute Assessment and Plan: Status post chest tube placement by General surgery Chest tube is on suction No air leak at this time -no residual pneumothorax, chest x-ray (5) Shock: Code(s): R57.9 - Shock, unspecified Status: Acute Assessment and Plan: Likely secondary to infection, sedation medications, hypovolemia Off Levophed since 01/20/2021 -01/10/2021: Blood cultures and urine cultures have been negative so far -patient tachycardic could be related to infection, pain, DVT -will obtain lower extremity Dopplers -will give albumin for volume expansion and evaluate if heart rate improves (6) Leukocytosis: Code(s): D72.829 - Elevated white blood cell count, unspecified Status: Acute Assessment and Plan: Likely secondary to steroid, improving - 01/22/2021 Blood cultures are negative - 01/22/2021: Urine cultures growing Proteus mirabilis, sensitivities pending -01/23/2021 sputum culture: Pending -patient currently afebrile Currently on ceftriaxone for UTI (7) Tachycardia: Code(s): R00.0 - Tachycardia, unspecified Status: Acute Assessment and Plan: Patient sinus tachycardia, could multifactorial, hypoxia, DVT, hypovolemia -will be with challenge of albumin -venous Dopplers bilateral lower extremity to rule out DVTs bronchodilators have been changed to p.r.n. (8) DVT prophylaxis: Code(s): Z29.9 - Encounter for prophylactic measures, unspecified Status: Acute
[2021-01-24 12:04] LABS: Glucose Point of Care 195 mg/dl (65-105)
[2021-01-24] MEDS: ALBUMIN HUMAN 25% 25 GM/100 ML 100 ML IVPB ×2 (13:02→23:16)
[2021-01-24 18:00] LABS: Glucose Point of Care 141 mg/dl (65-105)
[2021-01-24] MEDS: BUDESONIDE RESPULE NEB 0.5 MG/2 ML AMP INHALATION (20:05)
[2021-01-24 23:45] LABS: Glucose Point of Care 115 mg/dl (65-105)
[2021-01-25] VITALS (46 sets, daily range): BP systolic 102–140; BP diastolic 53–72; PULSE 68–116; RESP 24–28; TEMP 36.9–37.6; O2SAT 90–98
[2021-01-25] MEDS: NOREPINEPHRINE 8 MG/D5W 250 ML 8 MG/250 ML BAG 13.13 MG IV CONT (03:27)
[2021-01-25] MEDS: PROPOFOL IV EMULSION 100 ML 22.41 MG IV CONT ×6 (03:27→21:54)
[2021-01-25 04:24] LABS: Alanine Aminotransferase 148 U/L (4-35); Albumin Level 3.8 g/dL (3.5-5.1); Alkaline Phosphatase 115 U/L (38-126); Aspartate Amino Transferase 44 U/L (14-36); Bilirubin,Total 0.2 mg/dL (0.2-1.3); Blood Urea Nitrogen 19 mg/dL (7-17); Calcium 9.4 mg/dL (8.4-10.2); Carbon Dioxide > 40 mmol/L (22-30); Chloride 93 mmol/L (98-107); Estimated CRCL calculation 114 ml/min; Estimated Glomerular Filt Rate > 60; Glucose 118 mg/dL (65-110); Magnesium 2.1 mg/dL (1.6-2.3); Potassium 4.2 mmol/L (3.4-5.0); Sodium 140 mmol/L (137-145)
[2021-01-25 04:55] LABS: Base Excess ABG 17.3 mEq/l (+/-2.0); Fractional Inspired Oxygen 50 %; HCO3 ABG 46.1 mEq/l (22.0-26.0); Oxygen Content ABG 11.6 %vol (16.0-22.0); Oxygen Saturation ABG 91.3 % (95.0-100.0); Oxyhemoglobin 90.3 % THb (90.0-100.0); PO2 ABG 68.9 mmHg (80.0-100.0); PO2 FiO2 Ratio Arterial Blood 1.38 %; Total Hemoglobin 9.1 g/dL (12.0-18.0)
[2021-01-25 04:55] LABS: Basophils Absolute Auto 0.1 K/mm3 (0.0-0.1); Basophils Percent Auto 0.3 % (0.2-1.2); Eosinophils Absolute Auto 0.2 K/mm3 (0-0.3); Eosinophils Percent Auto 0.7 % (0-4.4); Hematocrit 26.4 % (37.0-47.0); Hemoglobin 8.1 g/dL (12.0-15.0); Immature Granulocyte Absolute 0.81 K/mm3 (0.00-0.031); Immature Granulocyte Percent A 3.4 % (0-0.5); Lymphocytes Percent Auto 8.8 % (18.3-44.2); Mean Corpuscular HGB Conc 30.7 g/dl (32-36); Mean Corpuscular Hemoglobin 28.2 pg (26-34); Monocytes Absolute Auto 1.5 K/mm3 (0.1-0.6); Monocytes Percent Auto 6.2 % (2.6-8.5); Neutrophils Absolute Auto 19.1 K/mm3 (1.3-6.7); Neutrophils Percent Auto 80.6 % (45.5-73.1); Nucleated Red Blood Cells Perc 0.1 % (0.0-0.2); Platelet Count Result 303 k/mm3 (150-375); Red Blood Count 2.87 M/mm3 (4.2-5.4); Red Cell Distribution Width 14.3 % (11.5-14.5); White Blood Count 23.8 K/mm3 (4.5-10.0)
[2021-01-25 04:57] LABS: Device VENTILATOR; Modified Allen's Test Pass; PCO2 ABG 89.4 mmHg (35.0-45.0); Site Drawn RIGHT RADIAL
[2021-01-25 04:59] LABS: Arterial Blood Gas PEEP 12 cmH2O; Arterial Blood Gas Tidal Volume 340 ml; Arterial Blood Gas Vent Mode CMV; Arterial Blood Gas Ventilator rate 24 /MIN
[2021-01-25 05:37] LABS: Hypochromasia 2+ (NORMAL); Ovalocytes 1+ (NORMAL); Platelet Estimate Adequate (Adequate); Stomatocytes 1+ (NORMAL)
[2021-01-25] MEDS: METOCLOPRAMIDE HCL 10 MG/10 ML SOLN UDC PO (06:07)
[2021-01-25] MEDS: CENTRAL LINE FLUSH 10 ML IV PUSH ×3 (06:09→21:55)
[2021-01-25] MEDS: MINERAL OIL/WHITE PETROLATUM OINTMENT 1 APPLIC EACH EYE ×2 (08:12→20:14)
[2021-01-25] MEDS: methylPREDNISolone SOD SUCC 40 MG VIAL IV PUSH (08:12)
[2021-01-25] MEDS: SACCHAROMYCES BOULARDII 250 MG CAPSULE PO ×2 (08:13→17:12)
[2021-01-25] MEDS: ZINC SULFATE 220 MG CAPSULE PO ×2 (08:13→17:12)
[2021-01-25] MEDS: ASCORBIC ACID 500 MG TABLET 1000 MG PO ×2 (08:13→17:12)
[2021-01-25] MEDS: VITAMIN B COMPLEX/VIT C CAPSULE 1 EACH PO (08:13)
[2021-01-25] MEDS: CHOLECALCIFEROL 1,000 UNITS TABLET 2000 UNITS BY MOUTH (08:13)
[2021-01-25] MEDS: ENOXAPARIN 40 MG/0.4 ML SYRINGE SUB-Q (08:13)
[2021-01-25] MEDS: FAMOTIDINE 20 MG/2 ML VIAL IV PUSH ×2 (08:13→20:15)
[2021-01-25] MEDS: BUDESONIDE RESPULE NEB 0.5 MG/2 ML AMP INHALATION ×2 (08:39→20:18)
[2021-01-25] MEDS: MIDAZOLAM 100MG/NS 100ML(*CRX) 100 MG/100 ML BAG 6 MG IV CONT (09:47)
[2021-01-25 12:19] LABS: Glucose Point of Care 223 mg/dl (65-105)
--- NOTE | 2021-01-25 12:20 | WPDINTPN ---
Progress Note: A&P Assessment and Plan (1) Acute respiratory failure with hypoxia: Code(s): J96.01 - Acute respiratory failure with hypoxia Status: Acute Assessment and Plan: Acute hypoxic respiratory failure secondary to COVID-19 pneumonia. Over the course she has developed increasing oxygen requirements, transferred to the ICU on 01/12/2021 -was on BiPAP 12/6 and 100%. Intubated 01/13 -ABG reviewed. Ventilator adjusted, decreased respiratory rate -currently on a PEEP of 12 and 50% FiO2, -patient was ventilated in prone position daily for 1st few days. currently tolerating supine position. will re-evaluate continued need for prone ventilation daily -chest x-ray: 01/25/2021: Developed a pneumomediastinum, stable diffuse bilateral airspace disease compatible with pneumonia -patient auto diuresing well -patient remains on fentanyl, Versed and propofol infusion -continue bronchodilators and Pulmicort -01/23/2021, sputum cultures growing Gram-positive cocci in clusters, started on vancomycin (2) Pneumonia due to COVID-19 virus: Code(s): U07.1 - COVID-19; J12.82 - Pneumonia due to coronavirus disease 2019 Status: Acute Assessment and Plan: Patient tested positive for COVID on 12/25/2020. Patient is unvaccinated -she is status post Remdesivir, dexamethasone -status post azithromycin and ceftriaxone - completed a course of Baricitinib for 14 days -will discontinue Solu-Medrol given patient developed UTI and bacterial pneumonia -on vitamin-C, vitamin-D and zinc. Patient also on melatonin, -at home patient was also taking hydroxychloroquine -upon admission to the ICU, patient's was demanding to start method of ivermectin, prednisolone, nitazoxanide, fluvoxamine, cyproheptadine, famotidine, discussed with the in details and explained to him that the is no appropriate and official data regarding these medications, in then over the in patients with COVID-19, he did comprehend -continue airborne, droplet, contact isolation precaution (3) Pneumomediastinum: Code(s): J98.2 - Interstitial emphysema Status: Acute Assessment and Plan: Pneumomediastinum seen on checks x-ray on 01/25/2021 --thorax Continue to monitor at this time (4) Pneumothorax on right: Onset Date: ~01/14/21 Code(s): J93.9 - Pneumothorax, unspecified Status: Acute Assessment and Plan: Status post chest tube placement by General surgery Chest tube is on suction No air leak at this time -no residual pneumothorax, chest x-ray (5) Shock: Code(s): R57.9 - Shock, unspecified Status: Acute Assessment and Plan: Likely secondary to infection, sedation medications, hypovolemia Off Levophed since 01/20/2021 01/22/2021: Urine cultures growing Enterococcus species and mid Proteus mirabilis (initiated ceftriaxone on 01/23/2020) 01/23/2021: Sputum cultures with Gram-positive cocci in clusters , initiated vancomycin on 01/23/2021 -patient tachycardic could be related to infection, pain, DVT -01/24/2021: Bilateral lower extremity venous Dopplers negative for DVT - (6) Leukocytosis: Code(s): D72.829 - Elevated white blood cell count, unspecified Status: Acute Assessment and Plan: Likely secondary to steroid/infection, continue to monitor Cultures as above, continue antibiotics as above (7) Tachycardia: Code(s): R00.0 - Tachycardia, unspecified Status: Acute Assessment and Plan: Patient sinus tachycardia, could multifactorial, hypoxia, DVT, hypovolemia -will be with challenge of albumin -01/24/2021: Venous Dopplers negative for bilateral lower extremity DVT bronchodilators have been changed to p.r.n. (8) DVT prophylaxis: Code(s): Z29.9 - Encounter for prophylactic measures, unspecified Status: Acute Assessment and Plan: Lovenox SQ Additional Plan DVT prophylaxis -Lovenox subQ Stress ulcer prophylaxis -
[2021-01-25] MEDS: INSULIN ASPART (*BKC) 100 UNITS/ML SUB-Q (12:32)
[2021-01-25] MEDS: FENTANYL 2,500MCG/NS250ML(*CRX 2,500 MCG/250 ML BAG 17.5 MCG IV CONT (12:33)
--- NOTE | 2021-01-25 13:49 | PM.IMPN ---
Progress Note: A&P Assessment and Plan (1) Acute respiratory failure with hypoxia: Code(s): J96.01 - Acute respiratory failure with hypoxia Status: Acute Assessment and Plan: Acute hypoxic respiratory failure secondary to COVID-19 pneumonia. She failed trial of BiPAP alternating with high-flow oxygen and was intubated on 01/13. Continue mechanical ventilation with current setting. Wean FiO2 and PEEP if tolerated. Follow ABG and chest x-ray. Prone position if with worsening oxygenation status. Currently sedated with fentanyl and propofol and Versed. Daily sedation vacation trial if tolerated. - Chest x-ray today showed small pneumomediastinum. Chest tube on the right side with no significant air leak. She has good urine output. -continue bronchodilators and Pulmicort -01/23/2021, sputum cultures growing Gram-positive cocci in clusters, started on vancomycin (2) Pneumonia due to COVID-19 virus: Code(s): U07.1 - COVID-19; J12.82 - Pneumonia due to coronavirus disease 2019 Status: Acute Assessment and Plan: Patient tested positive for COVID on 12/25/2020. Patient is unvaccinated -she is status post Remdesivir and dexamethasone -completed a course of azithromycin and ceftriaxone initially - completed a course of Baricitinib for 14 days -steroids have been discontinued because of bacterial pneumonia and urinary tract infection. -on vitamin-C, vitamin-D and zinc. Patient also on melatonin -continue airborne, droplet, contact isolation precaution but I will suggest to discontinue it is she has more than 10 days of her COVID-19 diagnosis. (3) Pneumomediastinum: Code(s): J98.2 - Interstitial emphysema Status: Acute Assessment and Plan: Pneumomediastinum seen on checks x-ray on 01/25/2021 Continue to monitor at this time (4) Pneumothorax on right: Onset Date: ~01/14/21 Code(s): J93.9 - Pneumothorax, unspecified Status: Acute Assessment and Plan: Status post chest tube placement by General surgery Chest tube is on suction No air leak at this time Reviewed chest x-ray with no residual pneumothorax seen. (5) Shock: Code(s): R57.9 - Shock, unspecified Status: Acute Assessment and Plan: Likely secondary to infection, sedation medications, hypovolemia Off Levophed since 01/20/2021 01/22/2021: Urine cultures growing Enterococcus species and mid Proteus mirabilis (initiated ceftriaxone on 01/23/2020) 01/23/2021: Sputum cultures with Gram-positive cocci in clusters. Currently on vancomycin. Follow cultures. -01/24/2021: Bilateral lower extremity venous Dopplers negative for DVT (6) Leukocytosis: Code(s): D72.829 - Elevated white blood cell count, unspecified Status: Acute Assessment and Plan: Likely secondary to steroid/infection, continue to monitor Cultures as above, continue antibiotics as above (7) Tachycardia: Code(s): R00.0 - Tachycardia, unspecified Status: Acute Assessment and Plan: Patient sinus tachycardia, could multifactorial, hypoxia, DVT, hypovolemia -01/24/2021: Venous Dopplers negative for bilateral lower extremity DVT bronchodilators have been changed to p.r.n. (8) DVT prophylaxis: Code(s): Z29.9 - Encounter for prophylactic measures, unspecified Status: Acute Assessment and Plan: Lovenox SQ Additional Plan DVT prophylaxis -Lovenox subQ Stress ulcer prophylaxis -Pepcid IV Nutrition -continue Tube Feeds. Continue Reglan Code Status - Full Code This dictation may have been done utilizing a voice recognition system. Attempts have been made to correct errors. However, there may be uncorrected grammatical, spelling, and recognition errors present. Subjective Date/time seen: 01/25/21 13:49 Interval history: 60yo female healthy female who presents to the ED with complaints of syncope. She was e
[2021-01-25 17:39] LABS: Glucose Point of Care 138 mg/dl (65-105)
[2021-01-26] VITALS (53 sets, daily range): BP systolic 80–160; BP diastolic 36–80; PULSE 78–133; RESP 28–30; TEMP 36.9–37.7; O2SAT 92–99
[2021-01-26] MEDS: ACETAMINOPHEN 325 MG TABLET 650 MG PO (00:08)
[2021-01-26] MEDS: METOCLOPRAMIDE HCL 10 MG/10 ML SOLN UDC PO ×4 (00:09→23:48)
[2021-01-26 01:04] LABS: Glucose Point of Care 95 mg/dl (65-105)
[2021-01-26] MEDS: MIDAZOLAM 100MG/NS 100ML(*CRX) 100 MG/100 ML BAG 6 MG IV CONT (02:21)
[2021-01-26] MEDS: FENTANYL 2,500MCG/NS250ML(*CRX 2,500 MCG/250 ML BAG 17.5 MCG IV CONT (02:22)
[2021-01-26] MEDS: PROPOFOL IV EMULSION 100 ML 22.41 MG IV CONT ×6 (02:24→23:48)
[2021-01-26 05:27] LABS: Alveolar/Arterial O2 Gradient 174.1 mmHg; Base Excess ABG 24.3 mEq/l (+/-2.0); Carboxyhemoglobin 0.3 % THb (0-2.0); Fractional Inspired Oxygen 55 %; HCO3 ABG 52.5 mEq/l (22.0-26.0); Methemoglobin ABG 0.4 %THb (0-1.5); Oxygen Content ABG 12.4 %vol (16.0-22.0); Oxygen Saturation ABG 98.2 % (95.0-100.0); Oxyhemoglobin 96.9 % THb (90.0-100.0); PO2 ABG 122.7 mmHg (80.0-100.0); PO2 FiO2 Ratio Arterial Blood 2.23 %; Reduced Hemoglobin 2.4 %THb (0-5.0); Total Hemoglobin 8.9 g/dL (12.0-18.0); pH ABG 7.405 (7.350-7.450)
[2021-01-26 05:29] LABS: Modified Allen's Test Pass; PCO2 ABG 85.7 mmHg (35.0-45.0); Site Drawn LEFT RADIAL
[2021-01-26 05:30] LABS: Arterial Blood Gas PEEP 12 cmH2O; Arterial Blood Gas Vent Mode PRESSURE CONTROL; Arterial Blood Gas Ventilator rate 28 /MIN; Device VENTILATOR; Peak Inspiratory Pressure 34 cmH2O
[2021-01-26] MEDS: CENTRAL LINE FLUSH 10 ML IV PUSH ×3 (05:51→20:22)
[2021-01-26 06:31] LABS: Hematocrit 25.3 % (37.0-47.0); Hemoglobin 7.6 g/dL (12.0-15.0); Mean Corpuscular Hemoglobin 28.1 pg (26-34); Mean Corpuscular Volume 93.7 fl (80-100); Mean Platelet Volume 10.5 fl (7.4-10.4); Platelet Count Result 269 k/mm3 (150-375); Red Cell Distribution Width 14.5 % (11.5-14.5); White Blood Count 14.2 K/mm3 (4.5-10.0)
[2021-01-26 06:38] LABS: Blood Urea Nitrogen 18 mg/dL (7-17); Carbon Dioxide > 40 mmol/L (22-30); Chloride 90 mmol/L (98-107); Estimated CRCL calculation 112 ml/min; Estimated Glomerular Filt Rate > 60; Glucose 103 mg/dL (65-110); Potassium 4.1 mmol/L (3.4-5.0); Sodium 139 mmol/L (137-145)
[2021-01-26] MEDS: ASCORBIC ACID 500 MG TABLET 1000 MG PO ×2 (08:46→16:15)
[2021-01-26] MEDS: CHOLECALCIFEROL 1,000 UNITS TABLET 2000 UNITS BY MOUTH (08:47)
[2021-01-26] MEDS: ENOXAPARIN 40 MG/0.4 ML SYRINGE SUB-Q (08:47)
[2021-01-26] MEDS: ZINC SULFATE 220 MG CAPSULE PO ×2 (08:47→16:15)
[2021-01-26] MEDS: SACCHAROMYCES BOULARDII 250 MG CAPSULE PO ×2 (08:47→16:15)
[2021-01-26] MEDS: MINERAL OIL/WHITE PETROLATUM OINTMENT 1 APPLIC EACH EYE ×2 (08:48→20:22)
[2021-01-26] MEDS: FAMOTIDINE 20 MG/2 ML VIAL IV PUSH ×2 (08:48→20:22)
[2021-01-26] MEDS: VITAMIN B COMPLEX/VIT C CAPSULE 1 EACH PO (08:48)
[2021-01-26] MEDS: BUDESONIDE RESPULE NEB 0.5 MG/2 ML AMP INHALATION ×2 (08:52→21:00)
--- NOTE | 2021-01-26 10:57 | PCDIET ---
ICU Rounding Note: Patient tolerating Vital 1.2 at 50mL/hr goal rate with 30mL water flush every 4 hours. Last recorded weight is 73.5kg which is down from last review. Bowel Motility: BM x 1 today. Labs Reviewed: WBC (14.2), RBC (2.70), Hgb (7.6), Hct (25.3), BUN (18), Cr (0.4) Meds Noted: Propofol (rate of 22.4mL/hr provides 591kcal per day), Vitamin C, Pulmicort, Pepcid, Fentanyl, Reglan, Versed, Levophed, Florastor, Vancomycin, Allbee W/C, Vitamin D, Zinc Sulfate Additional Notes: No documented skin breakdown. Following daily in ICU rounds. Assessing/reassessing every Tuesday/Tuesday.
[2021-01-26 12:12] LABS: Glucose Point of Care 106 mg/dl (65-105)
--- NOTE | 2021-01-26 12:13 | WPDINTPN ---
Progress Note: A&P Assessment and Plan (1) Acute respiratory failure with hypoxia: Code(s): J96.01 - Acute respiratory failure with hypoxia Status: Acute Assessment and Plan: Acute hypoxic respiratory failure secondary to COVID-19 pneumonia. Over the course she has developed increasing oxygen requirements, transferred to the ICU on 01/12/2021 -was on BiPAP 12/6 and 100%. Intubated 01/13 -ABG reviewed. Ventilator adjusted, decreased respiratory rate -decreased PEEP to 10 and 505 FiO2 -patient was ventilated in prone position daily for 1st few days. currently tolerating supine position. will re-evaluate continued need for prone ventilation daily -chest x-ray: 01/26/2021: Diffuse bilateral pulmonary infiltrates are again noted consistent with extensive bilateral pneumonia. No pneumothorax or pleural effusion is evident. -patient auto diuresing well -patient remains on fentanyl, Versed and propofol infusion -continue bronchodilators and Pulmicort -01/23/2021, sputum cultures growing Gram-positive cocci in clusters, started on vancomycin (01/25) (2) Pneumonia due to COVID-19 virus: Code(s): U07.1 - COVID-19; J12.82 - Pneumonia due to coronavirus disease 2019 Status: Acute Assessment and Plan: Patient tested positive for COVID on 12/25/2020. Patient is unvaccinated -she is status post Remdesivir, dexamethasone -status post azithromycin and ceftriaxone - completed a course of Baricitinib for 14 days -will discontinue Solu-Medrol given patient developed UTI and bacterial pneumonia -on vitamin-C, vitamin-D and zinc. Patient also on melatonin, -at home patient was also taking hydroxychloroquine -upon admission to the ICU, patient's was demanding to start method of ivermectin, prednisolone, nitazoxanide, fluvoxamine, cyproheptadine, famotidine, discussed with the in details and explained to him that the is no appropriate and official data regarding these medications, in then over the in patients with COVID-19, he did comprehend -continue airborne, droplet, contact isolation precaution (3) Pneumomediastinum: Code(s): J98.2 - Interstitial emphysema Status: Acute Assessment and Plan: Pneumomediastinum seen on checks x-ray on 01/25/2021 --thorax Continue to monitor at this time (4) Pneumothorax on right: Onset Date: ~01/14/21 Code(s): J93.9 - Pneumothorax, unspecified Status: Acute Assessment and Plan: Status post chest tube placement by General surgery Chest tube is on suction No air leak at this time -no residual pneumothorax, chest x-ray (5) Shock: Code(s): R57.9 - Shock, unspecified Status: Acute Assessment and Plan: Likely secondary to infection, sedation medications, hypovolemia Off Levophed since 01/20/2021 01/22/2021: Urine cultures growing Enterococcus species and mid Proteus mirabilis (initiated ceftriaxone on 01/23/2020) 01/23/2021: Sputum cultures with Gram-positive cocci in clusters , initiated vancomycin on 01/23/2021 -patient tachycardic could be related to infection, pain, DVT -01/24/2021: Bilateral lower extremity venous Dopplers negative for DVT (6) Leukocytosis: Code(s): D72.829 - Elevated white blood cell count, unspecified Status: Acute Assessment and Plan: Likely secondary to steroid/infection, continue to monitor Cultures as above, continue antibiotics as above (7) Tachycardia: Code(s): R00.0 - Tachycardia, unspecified Status: Acute Assessment and Plan: Patient sinus tachycardia, could multifactorial, hypoxia, DVT, hypovolemia -will be with challenge of albumin -01/24/2021: Venous Dopplers negative for bilateral lower extremity DVT bronchodilators have been changed to p.r.n. (8) DVT prophylaxis: Code(s): Z29.9 - Encounter for prophylactic measures, unspecified Status: Acute Assessment and Plan: Lovenox SQ Additional Plan DVT p
[2021-01-26] MEDS: MIDAZOLAM 100MG/NS 100ML(*CRX) 100 MG/100 ML BAG 9 MG IV CONT (16:09)
[2021-01-26] MEDS: FENTANYL 2,500MCG/NS250ML(*CRX 2,500 MCG/250 ML BAG 20 MCG IV CONT (16:11)
[2021-01-26 18:15] LABS: Glucose Point of Care 112 mg/dl (65-105)
--- NOTE | 2021-01-26 19:47 | PM.IMPN ---
Progress Note: A&P Assessment and Plan (1) Acute respiratory failure with hypoxia: Code(s): J96.01 - Acute respiratory failure with hypoxia Status: Acute Assessment and Plan: Patient with acute respiratory failure secondary to COVID pneumonia. CTA of the chest 12/30 showing no central pulmonary embolus identified (sensitivity limited by motion artifact) and patchy bilateral airspace opacities have pattern consistent with COVID-19 pneumonia. Oxygen requirement worsened requiring intubation on 01/13 despite aggressive medical treatment. She remains intubated and sedated. Continue to wean vent as tolerated. Appreciate clothes drier repairer input. (2) Shock: Code(s): R57.9 - Shock, unspecified Status: Acute Assessment and Plan: Patient became hypotensive on 01/14 requiring Levophed. Hypotension felt related to sedation and hypovolemia. IV fluid given. BCx 01/10 negative; BCx repeated 01/22 and are NGTD. She has required levophed off/on due to fluid status and/or infections etiology. UCx 01/22 growing Proteus and Enterococcus. No fevers, WBC better today. Continue Rocephin and Vanco. Continue to follow. (3) Pneumothorax on right: Onset Date: ~01/14/21 Code(s): J93.9 - Pneumothorax, unspecified Status: Acute Assessment and Plan: Patient with PTX on the right with CT in place. CXR today reviewed showing no PTX. Management per general surgery. (4) Pneumomediastinum: Code(s): J98.2 - Interstitial emphysema Status: Acute Assessment and Plan: Patient had evidence of pneumomediastinum by CXR with SQ crepitus. Serial CXR showing resolution of the pneumomediastinum and SQ emphysema. Continue daily CXR. (5) Pneumonia due to COVID-19 virus: Code(s): U07.1 - COVID-19; J12.82 - Pneumonia due to coronavirus disease 2019 Status: Acute Assessment and Plan: Patient did not receive a COVID vaccination. She was exposed to an individual who was COVID positive. She did come in on hydroxychloroquine, zinc, vitamin-C and D from home. She began to have symptoms around 12/24/20. She was COVID positive (rapid) on 12/25/20 when in the ED. Returned to ED on 12/30 for worsening symptoms and was admitted. She has since completed Remdesivir, Dexamethasone and Baricitinib. Convalescent plasma given 01/04/21. Vit C,D, and zinc are on-board. Lasix 40mg IV daily x 3 doses given 01/03- and once again 01/19. Completed a course of Azithromycin as well. demanded that his be treated with Solu-Medrol, Vit C and Ivermectin. Explained that Ivermectin was not standard of care but we did proceed with the other treatment. She remains on Pulmicort, Vit C/Zinc/Vit D. Solu-Medrol has been discontinued. Continue supportive care. (6) Acute respiratory acidosis: Code(s): E87.2 - Acidosis Status: Acute Assessment and Plan: pH was 7.16 and NaBicarb IV given 01/15. Allowing for permissive hypercapnia. Serum bicarb >40. pH normal now. Vent adjustments per clothes drier repairer. Appreciate clothes drier repairer input (7) Transaminitis: Code(s): R74.01 - Elevation of levels of liver transaminase levels Status: Acute Assessment and Plan: Liver enzymes elevated on admission felt secondary to COVID. Hepatitis panel negative. RUQ US showing no acute findings. Levels normalized but increased again on 01/15. Etiology unclear. BP soft at times so consider transient HoTN or intermittent acidosis as the etiology of the flucuating liver tests. Levels slightly better today. Continue to monitor. (8) Hyponatremia: Code(s): E87.1 - Hypo-osmolality and hyponatremia Status: Acute Assessment and Plan: Sodium low on admission and has mostly remained low to normal range. Follow (9) Gastroesophageal reflux disease: Code(s): K21.9 - Gastro-esophageal reflux disease without esophagitis Status: Acute Assessment and Plan: Stable. Continue Pepcid.
[2021-01-26 21:06] LABS: Vancomycin Trough 6.4 ug/mL (10.0-20.0)
[2021-01-27] VITALS (46 sets, daily range): BP systolic 88–150; BP diastolic 40–82; PULSE 81–115; RESP 23–28; TEMP 37.1–37.7; O2SAT 92–99
[2021-01-27 00:18] LABS: Glucose Point of Care 131 mg/dl (65-105)
[2021-01-27] MEDS: PROPOFOL IV EMULSION 100 ML 22.41 MG IV CONT ×4 (03:37→22:22)
[2021-01-27] MEDS: MIDAZOLAM 100MG/NS 100ML(*CRX) 100 MG/100 ML BAG 9 MG IV CONT (03:39)
[2021-01-27] MEDS: NOREPINEPHRINE 8 MG/D5W 250 ML 8 MG/250 ML BAG 11.25 MG IV CONT (03:40)
[2021-01-27 04:13] LABS: Basophils Absolute Auto 0.1 K/mm3 (0.0-0.1); Basophils Percent Auto 0.4 % (0.2-1.2); Eosinophils Absolute Auto 0.3 K/mm3 (0-0.3); Eosinophils Percent Auto 2.5 % (0-4.4); Hematocrit 25.7 % (37.0-47.0); Hemoglobin 7.9 g/dL (12.0-15.0); Immature Granulocyte Absolute 0.45 K/mm3 (0.00-0.031); Immature Granulocyte Percent A 3.4 % (0-0.5); Lymphocytes Absolute Auto 1.82 K/mm3 (0.9-3.2); Lymphocytes Percent Auto 13.6 % (18.3-44.2); Mean Corpuscular HGB Conc 30.7 g/dl (32-36); Mean Corpuscular Hemoglobin 28.8 pg (26-34); Mean Corpuscular Volume 93.8 fl (80-100); Mean Platelet Volume 10.7 fl (7.4-10.4); Monocytes Absolute Auto 0.5 K/mm3 (0.1-0.6); Monocytes Percent Auto 3.9 % (2.6-8.5); Neutrophils Absolute Auto 10.2 K/mm3 (1.3-6.7); Neutrophils Percent Auto 76.2 % (45.5-73.1); Nucleated Red Blood Cells Perc 0.1 % (0.0-0.2); Platelet Count Result 307 k/mm3 (150-375); Red Blood Count 2.74 M/mm3 (4.2-5.4); Red Cell Distribution Width 14.5 % (11.5-14.5); White Blood Count 13.4 K/mm3 (4.5-10.0)
[2021-01-27 04:24] LABS: Prothrombin Time 13.1 Seconds (11.1-14.7)
[2021-01-27 04:25] LABS: Partial Thromboplastin Time 25.6 SECONDS (22.3-36.8)
[2021-01-27 04:46] LABS: Alveolar/Arterial O2 Gradient 304.1 mmHg; Base Excess ABG 17.9 mEq/l (+/-2.0); Carboxyhemoglobin 0.1 % THb (0-2.0); Fractional Inspired Oxygen 60 %; Methemoglobin ABG 0.5 %THb (0-1.5); Oxygen Content ABG 10.9 %vol (16.0-22.0); Oxyhemoglobin 91.7 % THb (90.0-100.0); PCO2 ABG 56.2 mmHg (35.0-45.0); PO2 ABG 61.9 mmHg (80.0-100.0); PO2 FiO2 Ratio Arterial Blood 1.03 %; Reduced Hemoglobin 7.7 %THb (0-5.0); Total Hemoglobin 8.4 g/dL (12.0-18.0)
[2021-01-27 04:48] LABS: pH ABG 7.502 (7.350-7.450)
[2021-01-27 04:49] LABS: Arterial Blood Gas PEEP 10 cmH2O; Arterial Blood Gas Tidal Volume 340 ml; Arterial Blood Gas Vent Mode CMV; Arterial Blood Gas Ventilator rate 28 /MIN; Device VENTILATOR; Modified Allen's Test Pass; Site Drawn LEFT RADIAL
[2021-01-27] MEDS: FENTANYL 2,500MCG/NS250ML(*CRX 2,500 MCG/250 ML BAG 20 MCG IV CONT (04:49)
[2021-01-27] MEDS: CENTRAL LINE FLUSH 10 ML IV PUSH ×3 (04:52→21:53)
[2021-01-27] MEDS: METOCLOPRAMIDE HCL 10 MG/10 ML SOLN UDC PO ×3 (04:52→18:05)
[2021-01-27 05:28] LABS: Alanine Aminotransferase 139 U/L (4-35); Alkaline Phosphatase 118 U/L (38-126); Aspartate Amino Transferase 49 U/L (14-36); Bilirubin,Total 0.4 mg/dL (0.2-1.3); Blood Urea Nitrogen 15 mg/dL (7-17); Calcium 8.4 mg/dL (8.4-10.2); Carbon Dioxide > 40 mmol/L (22-30); Chloride 91 mmol/L (98-107); Estimated CRCL calculation 144 ml/min; Estimated Glomerular Filt Rate > 60; Glucose 145 mg/dL (65-110); Magnesium 1.7 mg/dL (1.6-2.3); Phosphorus 3.4 mg/dL (2.5-4.5); Potassium 3.1 mmol/L (3.4-5.0); Sodium 138 mmol/L (137-145)
[2021-01-27] MEDS: BUDESONIDE RESPULE NEB 0.5 MG/2 ML AMP INHALATION ×2 (09:37→20:27)
[2021-01-27] MEDS: ASCORBIC ACID 500 MG TABLET 1000 MG PO ×2 (09:58→18:05)
[2021-01-27] MEDS: CHOLECALCIFEROL 1,000 UNITS TABLET 2000 UNITS BY MOUTH (09:58)
[2021-01-27] MEDS: SACCHAROMYCES BOULARDII 250 MG CAPSULE PO ×2 (09:58→18:05)
[2021-01-27] MEDS: ZINC SULFATE 220 MG CAPSULE PO ×2 (09:58→18:05)
[2021-01-27] MEDS: VITAMIN B COMPLEX/VIT C CAPSULE 1 EACH PO (09:59)
[2021-01-27] MEDS: ENOXAPARIN 40 MG/0.4 ML SYRINGE SUB-Q (09:59)
[2021-01-27] MEDS: MINERAL OIL/WHITE PETROLATUM OINTMENT 1 APPLIC EACH EYE ×2 (09:59→21:53)
[2021-01-27] MEDS: FAMOTIDINE 20 MG/2 ML VIAL IV PUSH ×2 (10:00→21:53)
--- NOTE | 2021-01-27 11:04 | WPDINTPN ---
Progress Note: A&P Assessment and Plan (1) Acute respiratory failure with hypoxia: Code(s): J96.01 - Acute respiratory failure with hypoxia Status: Acute Assessment and Plan: Acute hypoxic respiratory failure secondary to COVID-19 pneumonia. Over the course she has developed increasing oxygen requirements, transferred to the ICU on 01/12/2021 -was on BiPAP 12/6 and 100%. Intubated 01/13 -ABG reviewed. Ventilator adjusted, decreased respiratory rate -decreased PEEP to 10 and 60% FiO2 -patient was ventilated in prone position daily for first few days. currently tolerating supine position. will re-evaluate continued need for prone ventilation daily -chest x-ray reviewed -will give a dose of Lasix -patient remains on fentanyl, Versed and propofol infusion -continue bronchodilators and Pulmicort -01/23/2021, sputum cultures grew normal macario (2) Pneumonia due to COVID-19 virus: Code(s): U07.1 - COVID-19; J12.82 - Pneumonia due to coronavirus disease 2019 Status: Acute Assessment and Plan: Patient tested positive for COVID on 12/25/2020. Patient is unvaccinated -she is status post Remdesivir, dexamethasone -status post azithromycin and ceftriaxone - completed a course of Baricitinib for 14 days -also completed a long course of steroids and now off of Solu-Medrol given patient developed UTI and bacterial pneumonia -on vitamin-C, vitamin-D and zinc. Patient also on melatonin -at home patient was also taking hydroxychloroquine -upon admission to the ICU, patient's was demanding to start method of ivermectin, prednisolone, nitazoxanide, fluvoxamine, cyproheptadine, famotidine, discussed with the in details and explained to him that the is no appropriate and evidence behind usage of these medications in patients with COVID-19. -continue airborne, droplet, contact isolation precaution (3) Pneumomediastinum: Code(s): J98.2 - Interstitial emphysema Status: Acute Assessment and Plan: Pneumomediastinum seen on checks x-ray on 01/25/2021 --thorax Continue to monitor at this time (4) Pneumothorax on right: Onset Date: ~01/14/21 Code(s): J93.9 - Pneumothorax, unspecified Status: Acute Assessment and Plan: Status post chest tube placement by General surgery Chest tube is on suction. No air leak at this time Continues to have small pneumothorax on the right on today's chest x-ray. (5) Shock: Code(s): R57.9 - Shock, unspecified Status: Acute Assessment and Plan: Likely secondary to infection, sedation medications, hypovolemia Off Levophed since 01/20/2021 01/22/2021: Urine cultures growing Enterococcus species and mid Proteus mirabilis (initiated ceftriaxone on 01/23/2020) 01/23/2021: Sputum cultures normal macario, initiated vancomycin on 01/23/2021 -patient tachycardic could be related to infection, pain, DVT -01/24/2021: Bilateral lower extremity venous Dopplers negative for DVT (6) Leukocytosis: Code(s): D72.829 - Elevated white blood cell count, unspecified Status: Acute Assessment and Plan: Likely secondary to steroid/infection, continue to monitor Cultures as above, continue antibiotics as above (7) Tachycardia: Code(s): R00.0 - Tachycardia, unspecified Status: Acute Assessment and Plan: Patient sinus tachycardia, could multifactorial, hypoxia, DVT, hypovolemia -will be with challenge of albumin -01/24/2021: Venous Dopplers negative for bilateral lower extremity DVT bronchodilators have been changed to p.r.n. (8) DVT prophylaxis: Code(s): Z29.9 - Encounter for prophylactic measures, unspecified Status: Acute Assessment and Plan: Lovenox SQ Additional Plan DVT prophylaxis -Lovenox subQ Stress ulcer prophylaxis -Pepcid IV Nutrition -continue Tube Feeds. Continue Reglan Patient will eventually need tracheostomy and PEG but at this point patient is too
[2021-01-27 11:57] LABS: Glucose Point of Care 174 mg/dl (65-105)
[2021-01-27] MEDS: POTASSIUM CHLORIDE 20 MEQ PACKET (FOR LIQUID) 40 MEQ FEED TUBE (13:03)
[2021-01-27] MEDS: PROPOFOL IV EMULSION 100 ML 20.17 MG IV CONT (13:03)
--- NOTE | 2021-01-27 13:06 | PCDIET ---
Nutrition Follow-Up Complete: Nutrition Diagnosis: Suboptimal oral intake related to COVID as evidenced by average intake of 65% of recorded meals over last week with inability to eat breakfast today. Nutrition Goal: Patient to meet estimated nutritional needs. Goal met. Patient tolerating Vital 1.2 at 50mL/hr goal rate with 30mL water flush every 4 hours. Last recorded weight is 74.1 kg which is increased from last review. Bowel Motility: Last documented BM on 01/26/21 x 1. Labs Reviewed: WBC (13.4), RBC (2.74), Hgb (7.9), Hct (25.7), Glu (145), Cr (0.3), K (3.1), Alb (3.0) Meds Noted: Propofol (rate of 22.41mL/hr provides 591kcal per day), KCl, Vitamin C, Pulmicort, Reglan, Versed, Rocephin, Pepcid, Fentanyl, Levophed, Florastor, Vancomycin, Allbee W/C, Vitamin D, Zinc Sulfate Additional Notes: No documented skin breakdown. Will continue to monitor with same goal. Nutrition Monitoring and Evaluation: Follow up every Tuesday/Tuesday.
[2021-01-27] MEDS: MIDAZOLAM 100MG/NS 100ML(*CRX) 100 MG/100 ML BAG IV CONT (16:00)
[2021-01-27] MEDS: FUROSEMIDE INJ 40 MG/4 ML VIAL IV PUSH (18:01)
--- NOTE | 2021-01-27 18:01 | PM.IMPN ---
Progress Note: A&P Assessment and Plan (1) Acute respiratory failure with hypoxia: Code(s): J96.01 - Acute respiratory failure with hypoxia Status: Acute Assessment and Plan: Patient with acute respiratory failure secondary to COVID pneumonia. CTA of the chest 12/30 showing no central pulmonary embolus identified (sensitivity limited by motion artifact) and patchy bilateral airspace opacities have pattern consistent with COVID-19 pneumonia. Oxygen requirement worsened requiring intubation on 01/13 despite aggressive medical treatment. She remains intubated and sedated. Continue to wean vent as tolerated. Appreciate pullman car repairer input. (2) Shock: Code(s): R57.9 - Shock, unspecified Status: Acute Assessment and Plan: Patient became hypotensive on 01/14 requiring Levophed. Hypotension felt related to sedation and hypovolemia. IV fluids given. BCx 01/10 negative; BCx repeated 01/22 and are NGTD. She has required Levophed off/on due to fluid status and/or infections etiology. UCx 01/22 growing Proteus and Enterococcus. No fevers, WBC better today. Continue Rocephin and Vanco. Continue to follow. (3) Pneumothorax on right: Onset Date: ~01/14/21 Code(s): J93.9 - Pneumothorax, unspecified Status: Acute Assessment and Plan: Patient with PTX on the right with CT in place. CXR today reviewed showing mild right apical PTX. Chest tube management per pullman car repairer. (4) Pneumomediastinum: Code(s): J98.2 - Interstitial emphysema Status: Acute Assessment and Plan: Patient had evidence of pneumomediastinum by CXR with SQ crepitus. Serial CXR showing resolution of the pneumomediastinum and SQ emphysema. Continue daily CXR. (5) Pneumonia due to COVID-19 virus: Code(s): U07.1 - COVID-19; J12.82 - Pneumonia due to coronavirus disease 2019 Status: Acute Assessment and Plan: Patient did not receive a COVID vaccination. She was exposed to an individual who was COVID positive. She did come in on hydroxychloroquine, zinc, vitamin-C and D from home. She began to have symptoms around 12/24/20. She was COVID positive (rapid) on 12/25/20 when in the ED. Returned to ED on 12/30 for worsening symptoms and was admitted. She has since completed Remdesivir, Dexamethasone and Baricitinib. Convalescent plasma given 01/04/21. Vit C,D, and zinc are on-board. Lasix 40mg IV daily x 3 doses given 01/03- and once again 01/19. Completed a course of Azithromycin as well. demanded that his be treated with Solu-Medrol, Vit C and Ivermectin. Explained that Ivermectin was not standard of care but we did proceed with the other treatment. She remains on Pulmicort, Vit C/Zinc/Vit D. Solu-Medrol has since been discontinued. Continue supportive care. (6) Acute respiratory acidosis: Code(s): E87.2 - Acidosis Status: Acute Assessment and Plan: pH was 7.16 and NaBicarb IV given 01/15. Allowing for permissive hypercapnia. Serum bicarb >40. pH more elevated now felt related to metabolic alkalosis. Vent adjustments per pullman car repairer. Appreciate pullman car repairer input (7) Transaminitis: Code(s): R74.01 - Elevation of levels of liver transaminase levels Status: Acute Assessment and Plan: Liver enzymes elevated on admission felt secondary to COVID. Hepatitis panel negative. RUQ US showing no acute findings. Levels normalized but increased again on 01/15. Etiology unclear. BP soft at times so consider transient HoTN or intermittent acidosis as the etiology of the flucuating liver tests. Levels noted today. Continue to monitor. (8) Hyponatremia: Code(s): E87.1 - Hypo-osmolality and hyponatremia Status: Acute Assessment and Plan: Sodium low on admission and has mostly remained low to normal range. Follow (9) Gastroesophageal reflux disease: Code(s): K21.9 - Gastro-esophageal reflux disease without esophagitis Status: Acut
[2021-01-27 18:27] LABS: Glucose Point of Care 93 mg/dl (65-105)
[2021-01-27] MEDS: FENTANYL 2,500MCG/NS250ML(*CRX 2,500 MCG/250 ML BAG 15 MCG IV CONT (20:02)
[2021-01-27] MEDS: IPRATROPIUM BR 0.02% INH SOLN 0.5 MG/2.5 ML VIAL INHALATION (20:27)
[2021-01-27] MEDS: LEVALBUTEROL NEB 1.25 MG/3 ML 0.63 MG INHALATION (20:27)
[2021-01-28] VITALS (43 sets, daily range): BP systolic 92–134; BP diastolic 46–79; PULSE 95–130; RESP 24–34; TEMP 36.6–37.9; O2SAT 91–98
[2021-01-28] MEDS: METOCLOPRAMIDE HCL 10 MG/10 ML SOLN UDC PO ×4 (00:19→16:50)
[2021-01-28 00:31] LABS: Glucose Point of Care 122 mg/dl (65-105)
[2021-01-28] MEDS: NOREPINEPHRINE 8 MG/D5W 250 ML 8 MG/250 ML BAG 13.13 MG IV CONT (01:19)
[2021-01-28] MEDS: PROPOFOL IV EMULSION 100 ML 22.41 MG IV CONT ×5 (03:23→21:37)
[2021-01-28 05:40] LABS: Hematocrit 29.8 % (37.0-47.0); Hemoglobin 8.8 g/dL (12.0-15.0); Mean Corpuscular HGB Conc 29.5 g/dl (32-36); Mean Corpuscular Hemoglobin 27.9 pg (26-34); Mean Corpuscular Volume 94.6 fl (80-100); Mean Platelet Volume 9.7 fl (7.4-10.4); Platelet Count Result 364 k/mm3 (150-375); Red Blood Count 3.15 M/mm3 (4.2-5.4); Red Cell Distribution Width 15.1 % (11.5-14.5); White Blood Count 16.4 K/mm3 (4.5-10.0)
[2021-01-28 05:51] LABS: Alveolar/Arterial O2 Gradient 331.6 mmHg; Base Excess ABG 20.7 mEq/l (+/-2.0); Fractional Inspired Oxygen 80 %; HCO3 ABG 53.6 mEq/l (22.0-26.0); Methemoglobin ABG 0.5 %THb (0-1.5); Oxygen Content ABG 13.6 %vol (16.0-22.0); Oxygen Saturation ABG 93.5 % (95.0-100.0); Oxyhemoglobin 92.9 % THb (90.0-100.0); PO2 ABG 89.9 mmHg (80.0-100.0); PO2 FiO2 Ratio Arterial Blood 1.12 %; Reduced Hemoglobin 6.6 %THb (0-5.0); Total Hemoglobin 10.3 g/dL (12.0-18.0)
[2021-01-28 05:52] LABS: PCO2 ABG 141.8 mmHg (35.0-45.0); pH ABG 7.195 (7.350-7.450)
[2021-01-28 05:53] LABS: Device VENTILATOR; Modified Allen's Test Unable to perform; Site Drawn RIGHT RADIAL
[2021-01-28 05:54] LABS: Arterial Blood Gas PEEP 10 cmH2O; Arterial Blood Gas Tidal Volume 340 ml; Arterial Blood Gas Vent Mode CMV; Arterial Blood Gas Ventilator rate 24 /MIN
[2021-01-28 05:55] LABS: Alanine Aminotransferase 133 U/L (4-35); Albumin Level 3.4 g/dL (3.5-5.1); Alkaline Phosphatase 140 U/L (38-126); Aspartate Amino Transferase 50 U/L (14-36); Bilirubin,Total 0.2 mg/dL (0.2-1.3); Blood Urea Nitrogen 16 mg/dL (7-17); Calcium 8.8 mg/dL (8.4-10.2); Carbon Dioxide > 40 mmol/L (22-30); Chloride 89 mmol/L (98-107); Estimated CRCL calculation 110 ml/min; Estimated Glomerular Filt Rate > 60; Glucose 154 mg/dL (65-110); Potassium 4.2 mmol/L (3.4-5.0); Sodium 140 mmol/L (137-145)
[2021-01-28] MEDS: CENTRAL LINE FLUSH 10 ML IV PUSH ×3 (06:44→21:40)
[2021-01-28 07:58] LABS: Alveolar/Arterial O2 Gradient 317.1 mmHg; Base Excess ABG 19.7 mEq/l (+/-2.0); Fractional Inspired Oxygen 70 %; HCO3 ABG 49.6 mEq/l (22.0-26.0); Oxygen Content ABG 12.3 %vol (16.0-22.0); Oxygen Saturation ABG 91.4 % (95.0-100.0); Oxyhemoglobin 90.6 % THb (90.0-100.0); PO2 ABG 71.9 mmHg (80.0-100.0); PO2 FiO2 Ratio Arterial Blood 1.03 %; Total Hemoglobin 9.6 g/dL (12.0-18.0); pH ABG 7.303 (7.350-7.450)
[2021-01-28 08:00] LABS: Modified Allen's Test Pass; PCO2 ABG 102.4 mmHg (35.0-45.0); Site Drawn RIGHT RADIAL
[2021-01-28 08:01] LABS: Arterial Blood Gas PEEP 10 cmH2O; Arterial Blood Gas Tidal Volume 340 ml; Arterial Blood Gas Vent Mode CMV; Arterial Blood Gas Ventilator rate 30 /MIN; Device VENTILATOR
[2021-01-28] MEDS: VITAMIN B COMPLEX/VIT C CAPSULE 1 EACH PO (09:04)
[2021-01-28] MEDS: CHOLECALCIFEROL 1,000 UNITS TABLET 2000 UNITS BY MOUTH (09:05)
[2021-01-28] MEDS: SACCHAROMYCES BOULARDII 250 MG CAPSULE PO ×2 (09:05→16:49)
[2021-01-28] MEDS: ENOXAPARIN 40 MG/0.4 ML SYRINGE SUB-Q (09:05)
[2021-01-28] MEDS: ZINC SULFATE 220 MG CAPSULE PO ×2 (09:05→16:49)
[2021-01-28] MEDS: MINERAL OIL/WHITE PETROLATUM OINTMENT 1 APPLIC EACH EYE ×2 (09:06→21:39)
[2021-01-28] MEDS: FAMOTIDINE 20 MG/2 ML VIAL IV PUSH ×2 (09:06→21:39)
[2021-01-28] MEDS: ASCORBIC ACID 500 MG TABLET 1000 MG PO ×2 (09:06→16:50)
[2021-01-28] MEDS: BUDESONIDE RESPULE NEB 0.5 MG/2 ML AMP INHALATION ×2 (09:29→20:20)
--- NOTE | 2021-01-28 10:53 | WPDINTPN ---
Progress Note: A&P Assessment and Plan (1) Acute respiratory failure with hypoxia: Code(s): J96.01 - Acute respiratory failure with hypoxia Status: Acute Assessment and Plan: Acute hypoxic respiratory failure secondary to COVID-19 pneumonia. Over the course she has developed increasing oxygen requirements, transferred to the ICU on 01/12/2021 -was on BiPAP 12/6 and 100%. Intubated 01/13 -ABG reviewed and showed worsening hypercarbia and respiratory acidosis. Respiratory rate was increased to 30 repeat ABG shows improvement -tolerate permissive hypercapnia -continue PEEP 10 and 70% FiO2. She mostly has maintained oxygenation with FiO2 of 60-70% -patient was ventilated in prone position daily for first few days. currently tolerating supine position. -chest x-ray reviewed -patient remains on fentanyl, Versed and propofol infusion -continue bronchodilators and Pulmicort -01/23/2021, sputum cultures grew normal macario -ENT consulted for trach (2) Pneumonia due to COVID-19 virus: Code(s): U07.1 - COVID-19; J12.82 - Pneumonia due to coronavirus disease 2019 Status: Acute Assessment and Plan: Patient tested positive for COVID on 12/25/2020. Patient is unvaccinated -she is status post Remdesivir, dexamethasone -status post azithromycin and ceftriaxone - completed a course of Baricitinib for 14 days -also completed a long course of steroids and now off of Solu-Medrol given patient developed UTI and bacterial pneumonia -on vitamin-C, vitamin-D and zinc. Patient also on melatonin -at home patient was also taking hydroxychloroquine -upon admission to the ICU, patient's was demanding to start method of ivermectin, prednisolone, nitazoxanide, fluvoxamine, cyproheptadine, famotidine, discussed with the in details and explained to him that the is no appropriate and evidence behind usage of these medications in patients with COVID-19. -continue airborne, droplet, contact isolation precaution (3) Pneumomediastinum: Code(s): J98.2 - Interstitial emphysema Status: Acute Assessment and Plan: Pneumomediastinum seen on checks x-ray on 01/25/2021 --thorax Continue to monitor at this time (4) Pneumothorax on right: Onset Date: ~09/22/21 Code(s): J93.9 - Pneumothorax, unspecified Status: Acute Assessment and Plan: Status post chest tube placement by General surgery Chest tube is on suction. No air leak at this time I do not see a pneumothorax on the right on today's chest x-ray. (5) Shock: Code(s): R57.9 - Shock, unspecified Status: Acute Assessment and Plan: Likely secondary to infection, sedation medications, hypovolemia Off Levophed since 01/20/2021 01/22/2021: Urine cultures growing Enterococcus species and mid Proteus mirabilis (initiated ceftriaxone on 01/23/2020) 01/23/2021: Sputum cultures normal macario, initiated vancomycin on 01/23/2021 -patient tachycardic could be related to infection, pain, DVT -01/24/2021: Bilateral lower extremity venous Dopplers negative for DVT (6) Leukocytosis: Code(s): D72.829 - Elevated white blood cell count, unspecified Status: Acute Assessment and Plan: Likely secondary to steroid/infection, continue to monitor Cultures as above, continue antibiotics as above (7) Tachycardia: Code(s): R00.0 - Tachycardia, unspecified Status: Acute Assessment and Plan: Patient sinus tachycardia, could multifactorial, hypoxia, DVT, hypovolemia -will be with challenge of albumin -01/24/2021: Venous Dopplers negative for bilateral lower extremity DVT bronchodilators have been changed to p.r.n. (8) DVT prophylaxis: Code(s): Z29.9 - Encounter for prophylactic measures, unspecified Status: Acute Assessment and Plan: Lovenox SQ Additional Plan DVT prophylaxis -Lovenox subQ Stress ulcer prophylaxis -Pepcid IV Nutrition -continue Tube Feeds. Continue
[2021-01-28] MEDS: FENTANYL 2,500MCG/NS250ML(*CRX 2,500 MCG/250 ML BAG 20 MCG IV CONT (11:45)
--- NOTE | 2021-01-28 11:56 | PCDIET ---
ICU Rounding Note: Patient tolerating Vital 1.2 at 50mL/hr with 30mL water flush every 4 hours. Residuals 180mL and below. Last recorded weight is 70kg which is down from last review. -I/O. Bowel Motility: Last documented BM on 01/27/21 x 1. Labs Reviewed: WBC (16.4), RBC (3.15), Hgb (8.8), Hct (29.8), Glu (154), Cr (0.4), Alb (3.4) Meds Noted: Propofol (rate of 22.41mL/hr provides 591kcal per day), Vitamin C, Pulmicort, Rocephin, Pepcid, Fentanyl, Atrovent, Xopenex, Reglan, Florastor, Allbee W/C, Vitamin D, Zinc Sulfate Additional Notes: No documented skin breakdown. Following daily in ICU rounds. Assessing/reassessing every Tuesday/Tuesday.
[2021-01-28 12:25] LABS: Glucose Point of Care 108 mg/dl (65-105)
--- NOTE | 2021-01-28 12:25 | WPDGICN ---
Assessment and Plan Assessment and plan (1) Pneumonia due to COVID-19 virus: Code(s): U07.1 - COVID-19; J12.82 - Pneumonia due to coronavirus disease 2019 Status: Acute Assessment and Plan: severe covid and has been in the hospital for over a month, vent dependent will proceed with egd and g-tube placement tomorrow (2) Pneumothorax on right: Onset Date: ~01/14/21 Code(s): J93.9 - Pneumothorax, unspecified Status: Acute Assessment and Plan: has been treated (3) Acute respiratory failure with hypoxia: Code(s): J96.01 - Acute respiratory failure with hypoxia Status: Acute Assessment and Plan: still on oxygen support and intubated (4) Shock: Code(s): R57.9 - Shock, unspecified Status: Acute Assessment and Plan: low dose of levophed (5) Leukocytosis: Code(s): D72.829 - Elevated white blood cell count, unspecified Status: Acute Assessment and Plan: monitor GI Consult Note Consult date/time: 01/28/21 12:25 Reason for consult: severe covid with respiratory failure needing alf feeding HPI: Yessi Thomas is a 60 year old female with past medical history of anxiety, diverticulosis, GERD, laparoscopic cholecystectomy who initially presented to the ED at [facility] on 12/30/2020 with complains of syncopal episode, fevers, decreased appetite, nausea, vomiting, mild cough and tested COVID positive on 12/25/2020. Unfortunately hospital course complicated with more respiratory failure, pneumothorax and finally she had to be intubated and transferred to ICU. 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 History obtained from records and her nurse. Review of Systems Review of Systems: ROS unobtainable: Yes unobtainable due to endotracheal tube, unobtainable due to medical condition and unobtainable due to mental status PMFSH Past Medical History Medical History Anxiety Diverticulosis Gastroesophageal reflux disease Surgical History Surgical History History of hysterectomy History of laparoscopic cholecystectomy History of left breast biopsy Excision of benign cyst. History of thumb surgery Tendon repair of left thumb. Family History Family History Father Diabetes mellitus Heart disease Grandparent Malignant neoplasm of prostate Cancer Social History Social History (System 01/16/21 @ 15:42 by Ren Pimentel) Social History: Surrogate decision maker: Richard Thomas, . Code status: Full code. Smoking status: Never smoker Alcohol intake: never Alcohol use details: Rare alcohol use. Substance use: never Substance use type: does not use Additional living arrangements comments: The patient lives in [place] with her . They have 1 grown daughter who lives in [place] with their 3 grand children. 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 Spiritual care concerns: No Meds Home Medications and Allergies Home Medications Medication Instructions Recorded Confirmed Type B Complex-Vitamin B12 500 mg BYMOUTH DAILY 12/25/20 12/30/20 History Vitamin D3 2,000 units BYMOUTH DAILY 12/25/20 12/30/20 History omeprazole 20 mg PO Q12H 12/25/20 12/30/20 History ondansetron 4 mg PO Q8H PRN #14 tablet 12/25/20 12/30/20 Rx zinc sulfate 25 mg PO DAILY 12/30/20 12/30/20 History Allergies Allergy/AdvReac Type Severity Reaction Status Date / Time codeine Allergy Severe Hives / Verified 01/16/21 15:42 Red Face Vital Signs Vital Signs - 24 hr 01/27/21 12:40 01/27/21 13:00 01/27/21 13:03 Temperature Pulse Rate 91 89 91 Respiratory Rate 24 H 24 H 24 H Blood Pressure Pulse Oximetry
[2021-01-28] MEDS: MIDAZOLAM 100MG/NS 100ML(*CRX) 100 MG/100 ML BAG 6 MG IV CONT (14:46)
--- NOTE | 2021-01-28 17:09 | WPDANESEPP ---
Anes - Eval Pre Procedure Procedure: Operation Date: 01/29/21 14:00 Proposed Procedures p Tracheostomy - Eduardo Gan MD Date/Time: 01/28/21 17:09 Pre Op Diagnosis: covid pneumonia,acute respiratory failure with hyp Patient Data Age: 60 Gender: F Height: 1.57 m Weight: 70 kg Last Vital Signs Temp 99.6 F 01/28/21 14:00 Pulse 112 H 01/28/21 16:48 Resp 30 H 01/28/21 16:48 BP 106/56 L 01/28/21 16:46 Pulse Ox 92 01/28/21 15:41 Allergies Allergy/AdvReac Type Severity Reaction Status Date / Time codeine Allergy Severe Hives / Verified 01/16/21 15:42 Red Face Home Medications Medication Instructions Recorded Confirmed Type B Complex-Vitamin B12 500 mg BYMOUTH DAILY 12/25/20 12/30/20 History Vitamin D3 2,000 units BYMOUTH DAILY 12/25/20 12/30/20 History omeprazole 20 mg PO Q12H 12/25/20 12/30/20 History ondansetron 4 mg PO Q8H PRN #14 tablet 12/25/20 12/30/20 Rx zinc sulfate 25 mg PO DAILY 12/30/20 12/30/20 History Laboratory Tests 01/27/21 01/28/21 01/28/21 18:04 00:14 05:24 WBC 16.4 K/mm3 H K/mm3 (4.5-10.0) RBC 3.15 M/mm3 L M/mm3 (4.2-5.4) Hgb 8.8 g/dL L g/dL (12.0-15.0) Hct 29.8 % L % (37.0-47.0) MCV 94.6 fl fl (80-100) MCH 27.9 pg pg (26-34) MCHC 29.5 g/dl L g/dl (32-36) RDW 15.1 % H % (11.5-14.5) Plt Count 364 k/mm3 k/mm3 (150-375) MPV 9.7 fl fl (7.4-10.4) Puncture Site ABG pH ABG pCO2 ABG pO2 ABG PO2/FiO2 Ratio ABG HCO3 ABG O2 Saturation ABG O2 Content ABG Base Excess A-a Gradient Oxyhemoglobin Carboxyhemoglobin Methemoglobin Reduced Hemoglobin Total Hemoglobin O2 Delivery Device O2 Liters/Min Minute Volume Vent Rate Vent Mode FiO2 Tidal Volume PEEP Peak Inspir Pressure Pressure Support Sodium Potassium Chloride Carbon Dioxide Anion Gap BUN Creatinine Estim Creat Clear Calc Estimated GFR Glucose POC Capillary Glucose 93 mg/dl mg/dl 122 mg/dl H mg/dl (65-105) (65-105) Calcium Total Bilirubin AST ALT Alkaline Phosphatase Total Protein Albumin 01/28/21 01/28/21 01/28/21 05:24 05:30 07:43 WBC RBC Hgb Hct MCV MCH MCHC RDW Plt Count MPV Puncture Site Right radial Right radial ABG pH 7.195 L* 7.303 L (7.350-7.450) (7.350-7.450) ABG pCO2 141.8 mmHg H* mmHg 102.4 mmHg H* mmHg (35.0-45.0) (35.0-45.0) ABG pO2 89.9 mmHg mmHg 71.9 mmHg L mmHg (80.0-100.0) (80.0-100.0) ABG PO2/FiO2 Ratio 1.12 % % 1.03 % % ABG HCO3 53.6 mEq/l H mEq/l 49.6 mEq/l H mEq/l (22.0-26.0) (22.0-26.0) ABG O2 Saturation 93.5 % L % 91.4 % L % (95.0-100.0) (95.0-100.0) ABG O2 Content 13.6 %vol L %vol 12.3 %vol L %vol (16.0-22.0) (16.0-22.0) ABG Base Excess 20.7 mEq/l mEq/l 19.7 mEq/l mEq/l (+/-2.0) (+/-2.0) A-a Gradient 331.6 mmHg mmHg 317.1 mmHg mmHg Oxyhemoglobin 92.9 % THb % THb 90.6 % THb % THb (90.0-100.0) (90.0-100.0) Carboxyhemoglobin 0.0 % THb % THb (0-2.0) Methemoglobin 0.5 %THb %THb (0-1.5) Reduced Hemoglobin 6.6 %THb H %THb (0-5.0) Total Hemoglobin 10.3 g/dL L g/dL 9.6 g/dL L g/dL (12.0-18.0) (12.0-18.0) O2 Delivery Device Ventilator Ventilator O2 Liters/
--- NOTE | 2021-01-28 18:10 | PM.IMPN ---
Progress Note: A&P Assessment and Plan (1) Acute respiratory failure with hypoxia: Code(s): J96.01 - Acute respiratory failure with hypoxia Status: Acute Assessment and Plan: Patient with acute respiratory failure secondary to COVID pneumonia. CTA of the chest 12/30 showing no central pulmonary embolus identified (sensitivity limited by motion artifact) and patchy bilateral airspace opacities have pattern consistent with COVID-19 pneumonia. Oxygen requirement worsened requiring intubation on 01/13 despite aggressive medical treatment. She remains intubated and sedated. Continue to wean vent as tolerated. Appreciate health technician input. PEG and trach being planned. (2) Shock: Code(s): R57.9 - Shock, unspecified Status: Acute Assessment and Plan: Patient became hypotensive on 01/14 requiring Levophed. Hypotension felt related to sedation and hypovolemia. IV fluids given. BCx 01/10 negative; BCx repeated 01/22 and are NGTD. She has required Levophed off/on due to fluid status and/or infections etiology. UCx 01/22 growing Proteus and Enterococcus. No fevers, WBC better today. Continue Rocephin and Vanco. Continue to follow. (3) Pneumothorax on right: Onset Date: ~01/14/21 Code(s): J93.9 - Pneumothorax, unspecified Status: Acute Assessment and Plan: Patient with PTX on the right with CT in place. CXR today reviewed showing mild right apical PTX. Chest tube management per health technician. (4) Pneumomediastinum: Code(s): J98.2 - Interstitial emphysema Status: Acute Assessment and Plan: Patient had evidence of pneumomediastinum by CXR with SQ crepitus. Serial CXR showing resolution of the pneumomediastinum and SQ emphysema. Continue daily CXR. (5) Pneumonia due to COVID-19 virus: Code(s): U07.1 - COVID-19; J12.82 - Pneumonia due to coronavirus disease 2019 Status: Acute Assessment and Plan: Patient did not receive a COVID vaccination. She was exposed to an individual who was COVID positive. She did come in on hydroxychloroquine, zinc, vitamin-C and D from home. She began to have symptoms around 12/24/20. She was COVID positive (rapid) on 12/25/20 when in the ED. Returned to ED on 12/30 for worsening symptoms and was admitted. She has since completed Remdesivir, Dexamethasone and Baricitinib. Convalescent plasma given 01/04/21. Vit C,D, and zinc are on-board. Lasix 40mg IV daily x 3 doses given 01/03- and once again 01/19. Completed a course of Azithromycin as well. demanded that his be treated with Solu-Medrol, Vit C and Ivermectin. Explained that Ivermectin was not standard of care but we did proceed with the other treatment. She remains on Pulmicort, Vit C/Zinc/Vit D. Solu-Medrol has since been discontinued. Continue supportive care. (6) Acute respiratory acidosis: Code(s): E87.2 - Acidosis Status: Acute Assessment and Plan: pH was 7.16 and NaBicarb IV given 01/15. Allowing for permissive hypercapnia. Serum bicarb >40. pH better now felt related to metabolic alkalosis. Vent adjustments per health technician. Appreciate health technician input (7) Transaminitis: Code(s): R74.01 - Elevation of levels of liver transaminase levels Status: Acute Assessment and Plan: Liver enzymes elevated on admission felt secondary to COVID. Hepatitis panel negative. RUQ US showing no acute findings. Levels normalized but increased again on 01/15. Etiology unclear. BP soft at times so consider transient HoTN or intermittent acidosis as the etiology of the fluctuating liver tests. Levels noted today. Continue to monitor. (8) Hyponatremia: Code(s): E87.1 - Hypo-osmolality and hyponatremia Status: Acute Assessment and Plan: Sodium low on admission and has mostly remained low to normal range. Follow (9) Gastroesophageal reflux disease: Code(s): K21.9 - Gastro-esophageal reflux disease without esophagi
[2021-01-28 18:23] LABS: Glucose Point of Care 97 mg/dl (65-105)
[2021-01-28] MEDS: NOREPINEPHRINE 8 MG/D5W 250 ML 8 MG/250 ML BAG 9.38 MG IV CONT (21:41)
[2021-01-29] VITALS (45 sets, daily range): BP systolic 82–136; BP diastolic 29–71; PULSE 54–141; RESP 30–97; TEMP 35.6–38.4; O2SAT 30–100
[2021-01-29] MEDS: METOCLOPRAMIDE HCL 10 MG/10 ML SOLN UDC PO ×4 (00:20→23:57)
[2021-01-29 00:42] LABS: Glucose Point of Care 94 mg/dl (65-105)
[2021-01-29] MEDS: FENTANYL 2,500MCG/NS250ML(*CRX 2,500 MCG/250 ML BAG 20 MCG IV CONT ×2 (01:32→13:57)
[2021-01-29] MEDS: PROPOFOL IV EMULSION 100 ML 22.41 MG IV CONT (02:28)
[2021-01-29 05:28] LABS: Alveolar/Arterial O2 Gradient 344.7 mmHg; Base Excess ABG 13.9 mEq/l (+/-2.0); Carboxyhemoglobin 0.5 % THb (0-2.0); Fractional Inspired Oxygen 70 %; HCO3 ABG 43.4 mEq/l (22.0-26.0); Methemoglobin ABG 0.4 %THb (0-1.5); Oxygen Content ABG 13.7 %vol (16.0-22.0); Oxyhemoglobin 87.9 % THb (90.0-100.0); PO2 ABG 59.4 mmHg (80.0-100.0); PO2 FiO2 Ratio Arterial Blood 0.85 %; Reduced Hemoglobin 11.2 %THb (0-5.0); Total Hemoglobin 11.1 g/dL (12.0-18.0); pH ABG 7.309 (7.350-7.450)
[2021-01-29 05:31] LABS: Device VENTILATOR; Modified Allen's Test Pass; Oxygen Saturation ABG 86.5 % (95.0-100.0); PCO2 ABG 88.4 mmHg (35.0-45.0); Site Drawn RIGHT RADIAL
[2021-01-29 05:32] LABS: Arterial Blood Gas PEEP 10 cmH2O; Arterial Blood Gas Tidal Volume 340 ml; Arterial Blood Gas Vent Mode CMV; Arterial Blood Gas Ventilator rate 30 /MIN
[2021-01-29 05:51] LABS: Hemoglobin 7.8 g/dL (12.0-15.0); Mean Corpuscular Hemoglobin 28.8 pg (26-34); Mean Corpuscular Volume 95.9 fl (80-100); Mean Platelet Volume 9.2 fl (7.4-10.4); Platelet Count Result 287 k/mm3 (150-375); Red Blood Count 2.71 M/mm3 (4.2-5.4); Red Cell Distribution Width 14.7 % (11.5-14.5); White Blood Count 11.3 K/mm3 (4.5-10.0)
[2021-01-29 06:06] LABS: Alanine Aminotransferase 103 U/L (4-35); Alkaline Phosphatase 112 U/L (38-126); Aspartate Amino Transferase 45 U/L (14-36); Bilirubin,Total 0.3 mg/dL (0.2-1.3); Blood Urea Nitrogen 11 mg/dL (7-17); Calcium 8.7 mg/dL (8.4-10.2); Carbon Dioxide > 40 mmol/L (22-30); Chloride 88 mmol/L (98-107); Estimated CRCL calculation 140 ml/min; Estimated Glomerular Filt Rate > 60; Glucose 112 mg/dL (65-110); Potassium 3.6 mmol/L (3.4-5.0); Sodium 138 mmol/L (137-145)
[2021-01-29] MEDS: CENTRAL LINE FLUSH 10 ML IV PUSH ×3 (06:29→21:46)
[2021-01-29] MEDS: MIDAZOLAM 100MG/NS 100ML(*CRX) 100 MG/100 ML BAG 7 MG IV CONT (06:31)
[2021-01-29] MEDS: PROPOFOL IV EMULSION 100 ML 13.45 MG IV CONT ×3 (07:16→17:13)
[2021-01-29] MEDS: ACETAMINOPHEN ELIXIR 325 MG/10.15 ML UDC 650 MG FEED TUBE (08:14)
--- NOTE | 2021-01-29 08:27 | ECG_ITS ---
Measurements Intervals [place] Rate: 140 P: 11 IL: 100 QRS: 0 QRSD: 2 T: 32 QT: 88 QTc: 134 Interpretive Statements SINUS TACHYCARDIA WITH SHORT [place] INTERVAL ATRIAL PREMATURE COMPLEXES INCOMPLETE RIGHT BUNDLE BRANCH BLOCK BASELINE ARTIFACT- V4-V6 ABNORMAL ECG Electronically Signed On 01-29-2021 9:10:16 CDT by Cade Portillo D.O.
[2021-01-29] MEDS: ENOXAPARIN 40 MG/0.4 ML SYRINGE SUB-Q (09:15)
[2021-01-29] MEDS: MINERAL OIL/WHITE PETROLATUM OINTMENT 1 APPLIC EACH EYE ×2 (09:15→21:46)
[2021-01-29] MEDS: FAMOTIDINE 20 MG/2 ML VIAL IV PUSH ×2 (09:15→21:46)
--- NOTE | 2021-01-29 09:24 | PM.IMPN ---
Progress Note: A&P Assessment and Plan (1) Acute respiratory failure with hypoxia: Code(s): J96.01 - Acute respiratory failure with hypoxia Status: Acute Assessment and Plan: Patient with acute respiratory failure secondary to COVID pneumonia. CTA of the chest 12/30 showing no central pulmonary embolus identified (sensitivity limited by motion artifact) and patchy bilateral airspace opacities have pattern consistent with COVID-19 pneumonia. Oxygen requirement worsened requiring intubation on 01/13 despite aggressive medical treatment. She remains intubated and sedated. Continue to wean vent as tolerated. Appreciate shot core drill operator input. PEG and trach being planned. (2) Shock: Code(s): R57.9 - Shock, unspecified Status: Acute Assessment and Plan: Patient became hypotensive on 01/14 requiring Levophed. Hypotension felt related to sedation and hypovolemia. IV fluids given. BCx 01/10 negative; BCx repeated 01/22 and are NGTD. She has required Levophed off/on due to fluid status and/or infections etiology. UCx 01/22 growing Proteus and Enterococcus. She was treated with Rocephin and Vanco. Now having recurrent fevers. WBC improved today. Will re-culture and broaden abx. (3) Pneumothorax on right: Onset Date: ~01/14/21 Code(s): J93.9 - Pneumothorax, unspecified Status: Acute Assessment and Plan: Patient with PTX on the right with CT in place. CXR today reviewed showing no right PTX. Chest tube management per shot core drill operator. (4) Pneumomediastinum: Code(s): J98.2 - Interstitial emphysema Status: Acute Assessment and Plan: Patient had evidence of pneumomediastinum by CXR with SQ crepitus. Serial CXR showing resolution of the pneumomediastinum and SQ emphysema. Continue daily CXR. (5) Pneumonia due to COVID-19 virus: Code(s): U07.1 - COVID-19; J12.82 - Pneumonia due to coronavirus disease 2019 Status: Acute Assessment and Plan: Patient did not receive a COVID vaccination. She was exposed to an individual who was COVID positive. She did come in on hydroxychloroquine, zinc, vitamin-C and D from home. She began to have symptoms around 12/24/20. She was COVID positive (rapid) on 12/25/20 when in the ED. Returned to ED on 12/30 for worsening symptoms and was admitted. She has since completed Remdesivir, Dexamethasone and Baricitinib. Convalescent plasma given 01/04/21. Vit C,D, and zinc are on-board. Lasix IV given intermittently. Completed a course of Azithromycin as well. demanded that his be treated with Solu-Medrol, Vit C and Ivermectin. Explained that Ivermectin was not standard of care but we did proceed with the other treatment. She remains on Pulmicort, Vit C/Zinc/Vit D. Solu-Medrol has since been discontinued. Continue supportive care. Okay to stop vitamins and minerals. (6) Acute respiratory acidosis: Code(s): E87.2 - Acidosis Status: Acute Assessment and Plan: pH was 7.16 and NaBicarb IV given 01/15. Allowing for permissive hypercapnia. Serum bicarb >40. pH better now felt related to metabolic alkalosis. Vent adjustments per shot core drill operator. Appreciate shot core drill operator input. (7) Transaminitis: Code(s): R74.01 - Elevation of levels of liver transaminase levels Status: Acute Assessment and Plan: Liver enzymes elevated on admission felt secondary to COVID. Hepatitis panel negative. RUQ US showing no acute findings. Levels normalized but increased again on 01/15. Etiology unclear. BP soft at times so consider transient HoTN or intermittent acidosis as the etiology of the fluctuating liver tests. Levels noted today. Continue to monitor. (8) Hyponatremia: Code(s): E87.1 - Hypo-osmolality and hyponatremia Status: Acute Assessment and Plan: Sodium low on admission and has mostly remained low to normal range. Follow (9) Gastroesophageal reflux disease: Code(s): K21.9 - Gastro-esop
[2021-01-29] MEDS: ROCURONIUM BROMIDE 50 MG/5 ML VIAL (09:36)
--- NOTE | 2021-01-29 10:46 | PCDIET ---
ICU Rounding Note: Tube feedings held for anticipated tracheostomy today. Previously tolerating tube feedings without reported issues. Last recorded weight is 74.1kg which is increased from last review, despite -I/O. Bowel Motility: Last documented BM on 01/28/21. Labs Reviewed: WBC (11.3), RBC (2.71), Hgb (7.8), Hct (26.0), Glu (112), Cr (0.3), Alb (3.0) Meds Noted: Propofol (rate of 13.446mL/hr provides 355kcal per day), Albumin, Vitamin C, Pepcid, Fentanyl, Reglan, Pulmicort, Rocephin, Versed, Levophed, Miralax, Florastor, Allbee W/C, Vitamin D, Zinc Sulfate Additional Notes: No documented skin breakdown. Following daily in ICU rounds. Assessing/reassessing every Tuesday/Tuesday.
--- NOTE | 2021-01-29 11:04 | WPDINTPN ---
Progress Note: A&P Assessment and Plan (1) Acute respiratory failure with hypoxia: Code(s): J96.01 - Acute respiratory failure with hypoxia Status: Acute Assessment and Plan: Acute hypoxic respiratory failure secondary to COVID-19 pneumonia. Over the course she has developed increasing oxygen requirements, transferred to the ICU on 01/12/2021 -was on BiPAP 12/6 and 100%. Intubated 01/13 -ABG reviewed and showed worsening hypercarbia and respiratory acidosis. Respiratory rate was increased to 30 repeat ABG shows improvement -tolerate permissive hypercapnia -continue PEEP 10 and 70% FiO2. She mostly has maintained oxygenation with FiO2 of 60-70% -patient was ventilated in prone position daily for first few days. currently tolerating supine position. -chest x-ray reviewed -patient remains on fentanyl, Versed and propofol infusion -continue bronchodilators and Pulmicort -01/23/2021, sputum cultures grew normal macario (2) Pneumonia due to COVID-19 virus: Code(s): U07.1 - COVID-19; J12.82 - Pneumonia due to coronavirus disease 2019 Status: Acute Assessment and Plan: Patient tested positive for COVID on 12/25/2020. Patient is unvaccinated -she is status post Remdesivir, dexamethasone -status post azithromycin and ceftriaxone - completed a course of Baricitinib for 14 days -also completed a long course of steroids and now off of Solu-Medrol given patient developed UTI and bacterial pneumonia -on vitamin-C, vitamin-D and zinc. Patient also on melatonin -at home patient was also taking hydroxychloroquine -upon admission to the ICU, patient's was demanding to start method of ivermectin, prednisolone, nitazoxanide, fluvoxamine, cyproheptadine, famotidine, discussed with the in details and explained to him that the is no appropriate and evidence behind usage of these medications in patients with COVID-19. -continue airborne, droplet, contact isolation precaution (3) Pneumomediastinum: Code(s): J98.2 - Interstitial emphysema Status: Acute Assessment and Plan: Pneumomediastinum seen on checks x-ray on 01/25/2021 --thorax Continue to monitor at this time (4) Pneumothorax on right: Onset Date: ~01/14/21 Code(s): J93.9 - Pneumothorax, unspecified Status: Acute Assessment and Plan: Status post chest tube placement by General surgery Chest tube is on suction. No air leak at this time I do not see a pneumothorax on the right on today's chest x-ray. (5) Sepsis: Code(s): A41.9 - Sepsis, unspecified organism Status: Acute Assessment and Plan: 01/22/2021: Urine cultures growing Enterococcus species and mid Proteus mirabilis (initiated ceftriaxone on 01/23/2020) 01/23/2021: Sputum cultures normal macario, initiated vancomycin on 01/23/2021 Although her white cell count is improved she is again febrile. Levophed requirement has also increased Will send repeat cultures Her urine culture on 01/22 grew Proteus and Enterococcus Antibiotics broadened to vancomycin and imipenem Check procalcitonin Check lactic acid level Albumin 500 mL 5% and normal saline 1 L bolus Continue Levophed. May need vasopressin And hydrocortisone (6) Shock: Code(s): R57.9 - Shock, unspecified Status: Acute Assessment and Plan: Continue Levophed And hydrocortisone -01/24/2021: Bilateral lower extremity venous Dopplers negative for DVT (7) Tachycardia: Code(s): R00.0 - Tachycardia, unspecified Status: Acute Assessment and Plan: Patient sinus tachycardia, could multifactorial, hypoxia, DVT, hypovolemia -will be with challenge of albumin -01/24/2021: Venous Dopplers negative for bilateral lower extremity DVT bronchodilators have been changed to p.r.n. (8) DVT prophylaxis: Code(s): Z29.9 - Encounter for prophylactic measures, unspecified Status: Acute Assessment and Plan: Lovenox SQ Additional Pl
[2021-01-29] MEDS: SODIUM CHLORIDE 0.9% IV 1,000 ML 999 ML IV CONT (12:15)
[2021-01-29] MEDS: POTASSIUM CHLORIDE 20 MEQ PACKET (FOR LIQUID) 40 MEQ FEED TUBE (12:16)
[2021-01-29] MEDS: polyethylene glycoL 3350 17 GM POWD.PACK PO (12:16)
[2021-01-29] MEDS: SACCHAROMYCES BOULARDII 250 MG CAPSULE PO ×2 (12:17→18:05)
[2021-01-29] MEDS: SODIUM BICARBONATE 8.4% 50 MEQ/50 ML SYRINGE IV PUSH (12:26)
[2021-01-29 12:53] LABS: Glucose Point of Care 142 mg/dl (65-105)
[2021-01-29 13:50] LABS: Add Urine Microscopic? YES; Appearance Urine Cloudy (Clear); Bilirubin Urine Negative (Negative); Budding Yeast Urine Present /hpf; Color Urine Yellow (Yellow); Glucose Urine UA Negative (Negative); Ketones Urine Trace mg/dL (Negative); Leukocyte Esterase Ur Negative LEU/UL (Negative); Mucus Urine Rare /lpf; Nitrate Urine Negative (Negative); Protein Urine 1+ mg/dL (Negative); Specific Grav Ur 1.015 (1.001-1.035); Urobilinogen Urine Negative mg/dL (<2.0)
[2021-01-29 13:58] LABS: Blood Urine Negative (Negative)
[2021-01-29] MEDS: HYDROCORTISONE SODIUM SUCCINATE 100 MG/2 ML VIAL IV PUSH ×2 (13:58→21:46)
--- NOTE | 2021-01-29 16:29 | WPDGIPROGNO ---
Progress Note: A&P Assessment and Plan (1) Pneumonia due to COVID-19 virus: Code(s): U07.1 - COVID-19; J12.82 - Pneumonia due to coronavirus disease 2019 Status: Acute Assessment and Plan: still sick family does not want to proceed with peg at this moment, if they reconsider then will let us know (2) Acute respiratory failure with hypoxia: Code(s): J96.01 - Acute respiratory failure with hypoxia Status: Acute Assessment and Plan: by primary team (3) Sepsis: Code(s): A41.9 - Sepsis, unspecified organism Status: Acute (4) Shock: Code(s): R57.9 - Shock, unspecified Status: Acute Assessment and Plan: still on levophed (5) Pneumothorax on right: Onset Date: ~01/14/21 Code(s): J93.9 - Pneumothorax, unspecified Status: Acute Subjective Date/time seen: 01/29/21 16:29 Interval history: primary team had another conversation with family and they decided to hold for peg and trach at this moment. She is still critically ill, intubated and pressors Review of Systems Review of Systems: All systems reviewed & are unremarkable except as noted in HPI and below Exam Const: Other: sick and critically ill, sedated HENMT: Other: intubated, NGT in place Eyes: Sclera: sclerae normal Neck: Neck: supple Resp: Auscultation: diminished lung sounds Other: Right-sided chest tube with no air leak, areas of crepitus on chest wall have significantly improved Cardio: Rate: tachycardic GI: GI Palp: Yes Soft to palpation, No Tenderness to palpation present (GI) and No Guarding due to palpation present (GI) Auscultation: normal bowel sounds Urinary Catheter: Urinary Catheter: patent and draining Skin: Wounds: no wounds Neuro: Other: sedated Extrem: General: normal to inspection Psych: Other: unable to assess Objective Data Vital Signs Vital Signs: Vital Signs - 24 hr 01/28/21 16:45 01/28/21 16:46 01/28/21 16:47 Temperature Pulse Rate 112 H 112 H 112 H Respiratory Rate 30 H 30 H Blood Pressure 106/56 L Pulse Oximetry 01/28/21 16:48 01/28/21 18:00 01/28/21 18:11 Temperature 99.6 F Pulse Rate 112 H 115 H 117 H Respiratory Rate 30 H 30 H Blood Pressure 113/63 Pulse Oximetry 93 93 01/28/21 20:00 01/28/21 20:23 01/28/21 20:26 Temperature 99.8 F H Pulse Rate 95 118 H 112 H Respiratory Rate 30 H 29 H Blood Pressure 104/55 L Pulse Oximetry 95 01/28/21 20:32 01/28/21 21:37 01/28/21 21:41 Temperature Pulse Rate 112 H 110 H 109 H Respiratory Rate 30 H 30 H Blood Pressure 97/54 L Pulse Oximetry 01/28/21 22:00 01/28/21 23:19 01/29/21 00:00 Temperature 100.2 F H 100.4 F H Pulse Rate 112 H 114 H 117 H Respiratory Rate 30 H 30 H Blood Pressure 106/46 L 105/56 L Pulse Oximetry 95 93 94 01/29/21 00:29 01/29/21 01:32 01/29/21 02:00 Temperature 100.6 F H Pulse Rate 125 H 125 H 118 H Respiratory Rate 30 H 30 H 30 H Blood Pressure 109/50 L Pulse Oximetry 92 01/29/21 02:28 01/29/21 02:41 01/29/21 04:00 Temperature 100.4 F H Pulse Rate 116 H 114 H 118 H Respiratory Rate 30 H 30 H Blood Pressure 98/60 L Pulse Oximetry 91 92 01/29/21 05:17 01/29/21 05:22 01/29/21 06:00 Temperature 100.8 F H Pulse Rate 125 H 122 H 123 H Respiratory Rate 30 H 30 H Blood Pressure 114/59 L Pulse Oximetry 93 94 01/29/21 06:31 01/29/21 06:34 01/29/21 06:35 Temperature Pulse Rate 122 H 123 H 128 H Respiratory Rate 30 H 30 H Blood Pressure 114/59 L Pulse Oximetry 01/29/21 06:36 01/29/21 07:16 01/29/21 08:00 Temperature 101.2 F H Pulse Rate 123 H 130 H 130 H Respiratory Rate 30 H 30 H 30 H Blood Pressure 82/51 L Pulse Oximetry 95 01/29/21 08:14 01/29/21 08:29 01/29/21 09:15 Temperature 101.2 F H 100.2 F H Pulse Rate 141 H Respiratory Rate Blood Pressure Pulse Oximetry 94 01/29/21 10:00 01/29/21 10:09 01/29/21 10:25 Temper
[2021-01-29] MEDS: MIDAZOLAM 100MG/NS 100ML(*CRX) 100 MG/100 ML BAG 8 MG IV CONT (18:02)
[2021-01-29 18:26] LABS: Glucose Point of Care 145 mg/dl (65-105)
[2021-01-29] MEDS: BUDESONIDE RESPULE NEB 0.5 MG/2 ML AMP INHALATION (20:30)
[2021-01-29] MEDS: PROPOFOL IV EMULSION 100 ML 20.17 MG IV CONT (21:43)
[2021-01-29] MEDS: NOREPINEPHRINE 8 MG/D5W 250 ML 8 MG/250 ML BAG 6 MG IV CONT (23:55)
[2021-01-30] VITALS (39 sets, daily range): BP systolic 90–147; BP diastolic 40–78; PULSE 73–122; RESP 17–90; TEMP 36–37.4; O2SAT 92–98
[2021-01-30 00:27] LABS: Glucose Point of Care 197 mg/dl (65-105)
[2021-01-30] MEDS: FENTANYL 2,500MCG/NS250ML(*CRX 2,500 MCG/250 ML BAG 20 MCG IV CONT ×2 (02:25→16:47)
[2021-01-30] MEDS: MIDAZOLAM 100MG/NS 100ML(*CRX) 100 MG/100 ML BAG 6 MG IV CONT ×2 (04:30→20:08)
[2021-01-30 05:13] LABS: Alveolar/Arterial O2 Gradient 310.5 mmHg; Base Excess ABG 16.2 mEq/l (+/-2.0); Carboxyhemoglobin 0.3 % THb (0-2.0); Fractional Inspired Oxygen 70 %; HCO3 ABG 45.2 mEq/l (22.0-26.0); Methemoglobin ABG 0.6 %THb (0-1.5); Oxygen Content ABG 11.5 %vol (16.0-22.0); Oxyhemoglobin 93.6 % THb (90.0-100.0); PO2 ABG 87.6 mmHg (80.0-100.0); PO2 FiO2 Ratio Arterial Blood 1.25 %; Reduced Hemoglobin 5.5 %THb (0-5.0); Total Hemoglobin 8.6 g/dL (12.0-18.0)
[2021-01-30 05:16] LABS: Device VENTILATOR; Modified Allen's Test Pass; Site Drawn RIGHT RADIAL
[2021-01-30 05:17] LABS: Arterial Blood Gas PEEP 10 cmH2O; Arterial Blood Gas Tidal Volume 340 ml; Arterial Blood Gas Vent Mode CMV; Arterial Blood Gas Ventilator rate 30 /MIN
[2021-01-30 06:41] LABS: Hematocrit 24.5 % (37.0-47.0); Hemoglobin 7.5 g/dL (12.0-15.0); Mean Corpuscular HGB Conc 30.6 g/dl (32-36); Mean Corpuscular Hemoglobin 28.8 pg (26-34); Mean Corpuscular Volume 94.2 fl (80-100); Mean Platelet Volume 10.2 fl (7.4-10.4); Platelet Count Result 314 k/mm3 (150-375); Red Cell Distribution Width 14.6 % (11.5-14.5)
[2021-01-30] MEDS: CENTRAL LINE FLUSH 10 ML IV PUSH ×3 (06:41→22:01)
[2021-01-30] MEDS: METOCLOPRAMIDE HCL 10 MG/10 ML SOLN UDC PO ×4 (06:41→23:40)
[2021-01-30 07:01] LABS: Alanine Aminotransferase 95 U/L (4-35); Albumin Level 3.3 g/dL (3.5-5.1); Alkaline Phosphatase 116 U/L (38-126); Aspartate Amino Transferase 35 U/L (14-36); Bilirubin,Total 0.3 mg/dL (0.2-1.3); Blood Urea Nitrogen 9 mg/dL (7-17); Calcium 8.6 mg/dL (8.4-10.2); Carbon Dioxide > 40 mmol/L (22-30); Chloride 95 mmol/L (98-107); Estimated CRCL calculation 145 ml/min; Estimated Glomerular Filt Rate > 60; Glucose 148 mg/dL (65-110); Magnesium 2.2 mg/dL (1.6-2.3); Potassium 3.8 mmol/L (3.4-5.0); Sodium 142 mmol/L (137-145)
[2021-01-30] MEDS: HYDROCORTISONE SODIUM SUCCINATE 100 MG/2 ML VIAL IV PUSH ×3 (07:51→22:01)
[2021-01-30] MEDS: BUDESONIDE RESPULE NEB 0.5 MG/2 ML AMP INHALATION ×2 (08:40→19:53)
[2021-01-30] MEDS: ENOXAPARIN 40 MG/0.4 ML SYRINGE SUB-Q (09:16)
[2021-01-30] MEDS: MINERAL OIL/WHITE PETROLATUM OINTMENT 1 APPLIC EACH EYE ×2 (09:17→20:11)
[2021-01-30] MEDS: polyethylene glycoL 3350 17 GM POWD.PACK PO (09:17)
[2021-01-30] MEDS: FAMOTIDINE 20 MG/2 ML VIAL IV PUSH ×2 (09:17→20:11)
[2021-01-30] MEDS: SACCHAROMYCES BOULARDII 250 MG CAPSULE PO ×2 (09:17→18:16)
--- NOTE | 2021-01-30 11:06 | PM.IMPN ---
Progress Note: A&P Assessment and Plan (1) Acute respiratory failure with hypoxia: Code(s): J96.01 - Acute respiratory failure with hypoxia Status: Acute Assessment and Plan: Patient with acute respiratory failure secondary to COVID pneumonia. CTA of the chest 12/30 showing no central pulmonary embolus identified (sensitivity limited by motion artifact) and patchy bilateral airspace opacities have pattern consistent with COVID-19 pneumonia. Oxygen requirement worsened requiring intubation on 01/13 despite aggressive medical treatment. She remains intubated and sedated. Proning patient now. Continue to wean vent as tolerated. Appreciate riverboat captain input. PEG and trach being planned but on hold due to change in status. (2) Shock: Code(s): R57.9 - Shock, unspecified Status: Acute Assessment and Plan: Patient became hypotensive on 01/14 requiring Levophed. Hypotension felt related to sedation and hypovolemia. IV fluids given. BCx 01/10 negative; BCx repeated 01/22 and are negative. She has required Levophed off/on due to fluid status and/or infections etiology. UCx 01/22 growing Proteus and Enterococcus. She was treated with Rocephin and Vanco. Was having recurrent fevers but now hypothermic. Bradycardia related to hypothermia. WBC normal today. Patient was re-cultered and broad spectrum abx started. RN states patiet with copious nasal drainage. Follow up on cultures. (3) Pneumothorax on right: Onset Date: ~01/14/21 Code(s): J93.9 - Pneumothorax, unspecified Status: Acute Assessment and Plan: Patient with PTX on the right with CT in place. CXR today reviewed showing no right PTX. Chest tube management per riverboat captain. (4) Pneumomediastinum: Code(s): J98.2 - Interstitial emphysema Status: Acute Assessment and Plan: Patient had evidence of pneumomediastinum by CXR with SQ crepitus. Serial CXR showing that most of the pneumomediastinum has resolved. SQ emphysema no longer present. Moniotr closely since the PEEP has been increased. Continue daily CXR. (5) Pneumonia due to COVID-19 virus: Code(s): U07.1 - COVID-19; J12.82 - Pneumonia due to coronavirus disease 2019 Status: Acute Assessment and Plan: Patient did not receive a COVID vaccination. She was exposed to an individual who was COVID positive. She did come in on hydroxychloroquine, zinc, vitamin-C and D from home. She began to have symptoms around 12/24/20. She was COVID positive (rapid) on 12/25/20 when in the ED. Returned to ED on 12/30 for worsening symptoms and was admitted. She has since completed Remdesivir, Dexamethasone and Baricitinib. Convalescent plasma given 01/04/21. Vit C,D, and zinc were ordered. Lasix IV given intermittently. Completed a course of Azithromycin as well. demanded that his be treated with Solu-Medrol, Vit C and Ivermectin. Explained that Ivermectin was not standard of care but we did proceed with the other treatment. She was treated with Pulmicort, Vit C/Zinc/Vit D. Solu-Medrol, vitamins and minerals have since been discontinued. Continue supportive care. Solu-Cortef started. (6) Acute respiratory acidosis: Code(s): E87.2 - Acidosis Status: Acute Assessment and Plan: pH was 7.16 and NaBicarb IV given 01/15. Allowing for permissive hypercapnia. Serum bicarb >40. pH better now felt related to metabolic alkalosis. Vent adjustments per riverboat captain. Appreciate riverboat captain input. (7) UTI (urinary tract infection): Code(s): N39.0 - Urinary tract infection, site not specified Status: Acute Assessment and Plan: UCx 01/22 growing Proteus and enterococcus. As above. (8) Transaminitis: Code(s): R74.01 - Elevation of levels of liver transaminase levels Status: Acute Assessment and Plan: Liver enzymes elevated on admission felt secondary to COVID. Hepatitis panel negative. RUQ US showing no acute f
--- NOTE | 2021-01-30 11:15 | WPDINTPN ---
Progress Note: A&P Assessment and Plan (1) Acute respiratory failure with hypoxia: Code(s): J96.01 - Acute respiratory failure with hypoxia Status: Acute Assessment and Plan: Acute hypoxic respiratory failure secondary to COVID-19 pneumonia. Over the course she has developed increasing oxygen requirements, transferred to the ICU on 01/12/2021 -was on BiPAP 12/6 and 100%. Intubated 01/13 -ABG reviewed and showed worsening hypercarbia and respiratory acidosis. -tolerate permissive hypercapnia -currently PEEP 10 and 70% FiO2. Respiratory rate is limited to 30 due to high peak pressures on the ventilator. I will increase the PEEP to 12 -continue daily prone ventilation -chest x-ray reviewed and no pneumothorax seen today -patient remains on fentanyl, Versed and propofol infusion -continue bronchodilators and Pulmicort -01/23/2021, sputum cultures grew normal macario (2) Pneumonia due to COVID-19 virus: Code(s): U07.1 - COVID-19; J12.82 - Pneumonia due to coronavirus disease 2019 Status: Acute Assessment and Plan: Patient tested positive for COVID on 12/25/2020. Patient is unvaccinated -she is status post Remdesivir, dexamethasone -status post a course of azithromycin and ceftriaxone on admission - completed a course of Baricitinib for 14 days -also completed a long course of steroids and now off of Solu-Medrol given patient developed UTI and bacterial pneumonia -patient was on vitamin-C, vitamin-D and zinc for more than 2 weeks -at home patient was also taking hydroxychloroquine -upon admission to the ICU, patient's was demanding to start method of ivermectin, prednisolone, nitazoxanide, fluvoxamine, cyproheptadine, famotidine, discussed with the in details and explained to him that the is no appropriate and evidence behind usage of these medications in patients with COVID-19. -continue airborne, droplet, contact isolation precaution (3) Pneumomediastinum: Code(s): J98.2 - Interstitial emphysema Status: Acute Assessment and Plan: Pneumomediastinum seen on checks x-ray on 01/25/2021 --thorax Continue to monitor at this time (4) Pneumothorax on right: Onset Date: ~01/14/21 Code(s): J93.9 - Pneumothorax, unspecified Status: Acute Assessment and Plan: Status post chest tube placement by General surgery Chest tube is on suction. No air leak at this time I do not see a pneumothorax on the right on today's chest x-ray. (5) Sepsis: Code(s): A41.9 - Sepsis, unspecified organism Status: Acute Assessment and Plan: 01/22/2021: Urine cultures growing Enterococcus species and mid Proteus mirabilis (initiated ceftriaxone on 01/23/2020) 01/23/2021: Sputum cultures normal macario, initiated vancomycin on 01/23/202101/29 -repeat blood and urine cultures sent and are pending Continue vancomycin imipenem Continue hydrocortisone She was given IV fluid and albumin bolus 01/29 (6) Shock: Code(s): R57.9 - Shock, unspecified Status: Acute Assessment and Plan: Continue Levophed and hydrocortisone -01/24/2021: Bilateral lower extremity venous Dopplers negative for DVT (7) Tachycardia: Code(s): R00.0 - Tachycardia, unspecified Status: Acute Assessment and Plan: Patient sinus tachycardia, could multifactorial, hypoxia, DVT, hypovolemia -will be with challenge of albumin -01/24/2021: Venous Dopplers negative for bilateral lower extremity DVT bronchodilators have been changed to p.r.n. (8) DVT prophylaxis: Code(s): Z29.9 - Encounter for prophylactic measures, unspecified Status: Acute Assessment and Plan: Lovenox SQ Additional Plan DVT prophylaxis -Lovenox subQ Stress ulcer prophylaxis -Pepcid IV Nutrition -continue Tube Feeds. Continue Reglan 01/27 I had a conference call with patient's and patient's daughter by phone. I updated them patient current status, current
--- NOTE | 2021-01-30 11:33 | PCDIET ---
Nutrition Follow-Up Complete: Nutrition Diagnosis: Suboptimal oral intake related to COVID as evidenced by average intake of 65% of recorded meals over last week with inability to eat breakfast today. Nutrition Goal: Patient to meet estimated nutritional needs. Goal in progress. Patient tolerating Vital 1.2 at 50mL/hr goal rate with 30mL water flush every 4 hours. Last recorded weight is 75.5 kg which is increased from last review. +I/O. Bowel Motility: Last documented BM on 01/29/21. Labs Reviewed: RBC (2.60), Hgb (7.5), Hct (24.5), Glu (148), Cr (0.3), Alb (3.3) Meds Noted: Propofol (rate of 17.928mL/hr provides 473kcal per day), Solu Cortef, Primaxin, Reglan, Versed, Levophed, Miralax, Florastor, Vancomycin, Pulmicort, Pepcid, Fentanyl Additional Notes: No documented skin breakdown. Will continue to monitor with same goal. Nutrition Monitoring and Evaluation: Follow up every Tuesday/Tuesday.
[2021-01-30 12:18] LABS: Glucose Point of Care 196 mg/dl (65-105)
[2021-01-30] MEDS: PROPOFOL IV EMULSION 100 ML 13.45 MG IV CONT ×3 (12:29→20:07)
[2021-01-30] MEDS: NOREPINEPHRINE 8 MG/D5W 250 ML 8 MG/250 ML BAG 11.25 MG IV CONT (20:05)
[2021-01-30 22:29] LABS: Vancomycin Trough 7.5 ug/mL (10.0-20.0)
[2021-01-31] VITALS (42 sets, daily range): BP systolic 107–165; BP diastolic 53–85; PULSE 72–121; RESP 26–32; TEMP 36.8–37.4; O2SAT 92–100
[2021-01-31 00:17] LABS: Glucose Point of Care 170 mg/dl (65-105)
[2021-01-31 00:17] LABS: Glucose Point of Care 159 mg/dl (65-105)
[2021-01-31] MEDS: PROPOFOL IV EMULSION 100 ML 13.45 MG IV CONT ×3 (02:48→17:58)
[2021-01-31 05:55] LABS: Alveolar/Arterial O2 Gradient 297.1 mmHg; Carboxyhemoglobin 0.1 % THb (0-2.0); Fractional Inspired Oxygen 65 %; HCO3 ABG 47.6 mEq/l (22.0-26.0); Methemoglobin ABG 0.6 %THb (0-1.5); Oxygen Content ABG 10.7 %vol (16.0-22.0); Oxygen Saturation ABG 94.5 % (95.0-100.0); Oxyhemoglobin 93.9 % THb (90.0-100.0); PO2 ABG 77.6 mmHg (80.0-100.0); PO2 FiO2 Ratio Arterial Blood 1.19 %; Reduced Hemoglobin 5.4 %THb (0-5.0); pH ABG 7.384 (7.350-7.450)
[2021-01-31] MEDS: FENTANYL 2,500MCG/NS250ML(*CRX 2,500 MCG/250 ML BAG 20 MCG IV CONT ×2 (05:55→18:00)
[2021-01-31 05:57] LABS: Arterial Blood Gas Vent Mode CMV; Arterial Blood Gas Ventilator rate 30 /MIN; Device VENTILATOR; Modified Allen's Test Unable to perform; PCO2 ABG 81.6 mmHg (35.0-45.0); Site Drawn RIGHT RADIAL
[2021-01-31] MEDS: CENTRAL LINE FLUSH 10 ML IV PUSH ×3 (05:57→21:32)
[2021-01-31] MEDS: METOCLOPRAMIDE HCL 10 MG/10 ML SOLN UDC PO ×3 (05:57→18:00)
[2021-01-31] MEDS: HYDROCORTISONE SODIUM SUCCINATE 100 MG/2 ML VIAL IV PUSH ×3 (05:57→21:32)
[2021-01-31 05:58] LABS: Arterial Blood Gas PEEP 12 cmH2O; Arterial Blood Gas Tidal Volume 340 ml
[2021-01-31 06:10] LABS: Hematocrit 23.8 % (37.0-47.0); Hemoglobin 7.2 g/dL (12.0-15.0); Mean Corpuscular HGB Conc 30.3 g/dl (32-36); Mean Corpuscular Hemoglobin 28.7 pg (26-34); Mean Corpuscular Volume 94.8 fl (80-100); Mean Platelet Volume 9.7 fl (7.4-10.4); Platelet Count Result 293 k/mm3 (150-375); Red Blood Count 2.51 M/mm3 (4.2-5.4); Red Cell Distribution Width 14.7 % (11.5-14.5); White Blood Count 10.3 K/mm3 (4.5-10.0)
[2021-01-31 06:50] LABS: Glucose Point of Care 90 mg/dl (65-105)
[2021-01-31 07:18] LABS: Alanine Aminotransferase 74 U/L (4-35); Albumin Level 3.1 g/dL (3.5-5.1); Alkaline Phosphatase 110 U/L (38-126); Aspartate Amino Transferase 27 U/L (14-36); Bilirubin,Total 0.1 mg/dL (0.2-1.3); Blood Urea Nitrogen 10 mg/dL (7-17); Calcium 8.7 mg/dL (8.4-10.2); Carbon Dioxide > 40 mmol/L (22-30); Chloride 94 mmol/L (98-107); Estimated CRCL calculation 204 ml/min; Estimated Glomerular Filt Rate > 60; Glucose 166 mg/dL (65-110); Potassium 3.3 mmol/L (3.4-5.0); Sodium 141 mmol/L (137-145)
[2021-01-31 07:25] LABS: Hepatitis C Virus Antibody Negative (Negative)
[2021-01-31] MEDS: ENOXAPARIN 40 MG/0.4 ML SYRINGE SUB-Q (08:21)
[2021-01-31] MEDS: FAMOTIDINE 20 MG/2 ML VIAL IV PUSH ×2 (08:22→20:26)
[2021-01-31] MEDS: MINERAL OIL/WHITE PETROLATUM OINTMENT 1 APPLIC EACH EYE ×2 (08:22→20:26)
[2021-01-31] MEDS: SACCHAROMYCES BOULARDII 250 MG CAPSULE PO ×2 (08:22→18:00)
[2021-01-31] MEDS: BUDESONIDE RESPULE NEB 0.5 MG/2 ML AMP INHALATION ×2 (08:58→20:56)
--- NOTE | 2021-01-31 11:30 | WPDINTPN ---
Progress Note: A&P Assessment and Plan (1) Acute respiratory failure with hypoxia: Code(s): J96.01 - Acute respiratory failure with hypoxia Status: Acute Assessment and Plan: Acute hypoxic respiratory failure secondary to COVID-19 pneumonia. Over the course she has developed increasing oxygen requirements, transferred to the ICU on 01/12/2021 -was on BiPAP 12/6 and 100%. Intubated 01/13 -ABG reviewed and showed worsening hypercarbia and respiratory acidosis. -tolerate permissive hypercapnia -currently PEEP 12 and 65% FiO2. Respiratory rate is limited to 30 due to high peak pressures on the ventilator. -continue daily prone ventilation -chest x-ray reviewed and no pneumothorax seen today -patient remains on fentanyl, Versed and propofol infusion -continue bronchodilators and Pulmicort -01/23/2021, sputum cultures grew normal macario (2) Pneumonia due to COVID-19 virus: Code(s): U07.1 - COVID-19; J12.82 - Pneumonia due to coronavirus disease 2019 Status: Acute Assessment and Plan: Patient tested positive for COVID on 12/25/2020. Patient is unvaccinated -she is status post Remdesivir, dexamethasone -status post a course of azithromycin and ceftriaxone on admission - completed a course of Baricitinib for 14 days -also completed a long course of steroids and now off of Solu-Medrol given patient developed UTI and bacterial pneumonia -patient was on vitamin-C, vitamin-D and zinc for more than 2 weeks -at home patient was also taking hydroxychloroquine -upon admission to the ICU, patient's was demanding to start method of ivermectin, prednisolone, nitazoxanide, fluvoxamine, cyproheptadine, famotidine, discussed with the in details and explained to him that the is no appropriate and evidence behind usage of these medications in patients with COVID-19. -continue airborne, droplet, contact isolation precaution (3) Pneumomediastinum: Code(s): J98.2 - Interstitial emphysema Status: Acute Assessment and Plan: Pneumomediastinum seen on checks x-ray on 01/25/2021 --thorax Continue to monitor at this time (4) Pneumothorax on right: Onset Date: ~01/14/21 Code(s): J93.9 - Pneumothorax, unspecified Status: Acute Assessment and Plan: Status post chest tube placement by General surgery Chest tube is on suction. No air leak at this time I do not see a pneumothorax on the right on today's chest x-ray. (5) Sepsis: Code(s): A41.9 - Sepsis, unspecified organism Status: Acute Assessment and Plan: 01/22/2021: Urine cultures growing Enterococcus species and mid Proteus mirabilis (initiated ceftriaxone on 01/23/2020) 01/23/2021: Sputum cultures normal macario, initiated vancomycin on 01/23/202101/29 -repeat blood and urine cultures sent and are pending Continue vancomycin imipenem Continue hydrocortisone She was given IV fluid and albumin bolus 01/29 (6) Shock: Code(s): R57.9 - Shock, unspecified Status: Acute Assessment and Plan: Continue hydrocortisone Levophed is being weaned off this morning. Continue monitor -01/24/2021: Bilateral lower extremity venous Dopplers negative for DVT (7) Tachycardia: Code(s): R00.0 - Tachycardia, unspecified Status: Acute Assessment and Plan: Patient sinus tachycardia, could multifactorial, hypoxia, DVT, hypovolemia -will be with challenge of albumin -01/24/2021: Venous Dopplers negative for bilateral lower extremity DVT bronchodilators have been changed to p.r.n. (8) DVT prophylaxis: Code(s): Z29.9 - Encounter for prophylactic measures, unspecified Status: Acute Assessment and Plan: Lovenox SQ Additional Plan DVT prophylaxis -Lovenox subQ Stress ulcer prophylaxis -Pepcid IV Nutrition -continue Tube Feeds. Continue Reglan 01/27 I had a conference call with patient's and patient's daughter by phone. I updated them patient curr
[2021-01-31 12:30] LABS: Glucose Point of Care 193 mg/dl (65-105)
[2021-01-31] MEDS: MIDAZOLAM 100MG/NS 100ML(*CRX) 100 MG/100 ML BAG 6 MG IV CONT (12:52)
--- NOTE | 2021-01-31 15:56 | PM.IMPN ---
Progress Note: A&P Assessment and Plan (1) Acute respiratory failure with hypoxia: Code(s): J96.01 - Acute respiratory failure with hypoxia Status: Acute Assessment and Plan: Patient with acute respiratory failure secondary to COVID pneumonia. CTA of the chest 12/30 showing no central pulmonary embolus identified (sensitivity limited by motion artifact) and patchy bilateral airspace opacities have pattern consistent with COVID-19 pneumonia. Oxygen requirement worsened requiring intubation on 01/13 despite aggressive medical treatment. She remains intubated and sedated. Continue to wean vent as tolerated. Appreciate account contact associate input. Patient family has been refusing for PEG and tracheostomy tube placement. Continue sedation with fentanyl Versed and propofol. She is not a candidate for daily sedation vacation trial. Continue mechanical ventilation with current settings. Low tidal volume strategies should be employed. Prone position for 16-18 hours if tolerated. Continue to monitor ABG and chest x-ray. Allow permissive hypercapnia. Continue bronchodilators. (2) Pneumonia due to COVID-19 virus: Code(s): U07.1 - COVID-19; J12.82 - Pneumonia due to coronavirus disease 2019 Status: Acute Assessment and Plan: Patient did not receive a COVID vaccination. She was exposed to an individual who was COVID positive. She did come in on hydroxychloroquine, zinc, vitamin-C and D from home. She began to have symptoms around 12/24/20. She was COVID positive (rapid) on 12/25/20 when in the ED. Returned to ED on 12/30 for worsening symptoms and was admitted. She has since completed Remdesivir, Dexamethasone and Baricitinib. Convalescent plasma given 01/04/21. Vit C,D, and zinc were ordered. Lasix IV given intermittently. Completed a course of Azithromycin as well. demanded that his be treated with Solu-Medrol, Vit C and Ivermectin. Explained that Ivermectin was not standard of care but we did proceed with the other treatment. She was treated with Pulmicort, Vit C/Zinc/Vit D. Solu-Medrol, vitamins and minerals have since been discontinued. Continue supportive care. Solu-Cortef started. Consider discontinuation of precautions as she has passed 10 days window. (3) Pneumomediastinum: Code(s): J98.2 - Interstitial emphysema Status: Acute Assessment and Plan: Pneumomediastinum seen on checks x-ray on 01/25/2021 Continue to monitor at this time. She currently has a chest tube on the right side. (4) Pneumothorax on right: Onset Date: ~01/14/21 Code(s): J93.9 - Pneumothorax, unspecified Status: Acute Assessment and Plan: Status post chest tube placement by General surgery Chest tube is on suction. No air leak at this time I do not see a pneumothorax on the right on today's chest x-ray. (5) Sepsis: Code(s): A41.9 - Sepsis, unspecified organism Status: Acute Assessment and Plan: 01/22/2021: Urine cultures growing Enterococcus species and mid Proteus mirabilis (initiated ceftriaxone on 01/23/2020) 01/23/2021: Sputum cultures normal macario, initiated vancomycin on 01/23/202101/29 -repeat blood and urine cultures sent and are pending Continue vancomycin imipenem Continue hydrocortisone but start weaning if she remain off pressors. She was given IV fluid and albumin bolus 01/29 (6) Shock: Code(s): R57.9 - Shock, unspecified Status: Acute Assessment and Plan: Continue hydrocortisone. Start weaning if she remained off pressors. Levophed is being weaned off this morning. Continue to monitor hemodynamics closely. 01/24/2021: Bilateral lower extremity venous Dopplers negative for DVT (7) Tachycardia: Code(s): R00.0 - Tachycardia, unspecified Status: Acute Assessment and Plan: Patient sinus tachycardia, could multifactorial, hypoxia, DVT, hypovolemia -01/24/2021: Venous Dopplers negative for bilateral
[2021-01-31 18:24] LABS: Glucose Point of Care 148 mg/dl (65-105)
[2021-02-01] VITALS (47 sets, daily range): BP systolic 110–168; BP diastolic 50–84; PULSE 70–105; RESP 28–34; TEMP 36.6–37.4; O2SAT 90–99
[2021-02-01] MEDS: PROPOFOL IV EMULSION 100 ML 13.45 MG IV CONT (01:20)
[2021-02-01 03:45] LABS: Glucose Point of Care 166 mg/dl (65-105)
[2021-02-01] MEDS: MIDAZOLAM 100MG/NS 100ML(*CRX) 100 MG/100 ML BAG 6 MG IV CONT ×2 (03:48→23:27)
[2021-02-01 04:43] LABS: Alveolar/Arterial O2 Gradient 196.5 mmHg; Base Excess ABG 19.3 mEq/l (+/-2.0); Carboxyhemoglobin 0.3 % THb (0-2.0); Fractional Inspired Oxygen 55 %; HCO3 ABG 47.8 mEq/l (22.0-26.0); Methemoglobin ABG 0.5 %THb (0-1.5); Oxygen Content ABG 11.4 %vol (16.0-22.0); Oxygen Saturation ABG 96.3 % (95.0-100.0); Oxyhemoglobin 95.3 % THb (90.0-100.0); PO2 ABG 94.8 mmHg (80.0-100.0); PO2 FiO2 Ratio Arterial Blood 1.72 %; Reduced Hemoglobin 3.9 %THb (0-5.0); Total Hemoglobin 8.4 g/dL (12.0-18.0)
[2021-02-01 04:47] LABS: Arterial Blood Gas PEEP 12 cmH2O; Arterial Blood Gas Vent Mode CMV; Arterial Blood Gas Ventilator rate 30 /MIN; Device VENTILATOR; Modified Allen's Test Pass; PCO2 ABG 90.7 mmHg (35.0-45.0); Site Drawn RIGHT RADIAL
[2021-02-01 04:48] LABS: Arterial Blood Gas Tidal Volume 340 ml
[2021-02-01] MEDS: CENTRAL LINE FLUSH 10 ML IV PUSH ×3 (05:33→21:12)
[2021-02-01] MEDS: HYDROCORTISONE SODIUM SUCCINATE 100 MG/2 ML VIAL IV PUSH (05:37)
[2021-02-01 05:53] LABS: Hematocrit 23.6 % (37.0-47.0); Hemoglobin 7.1 g/dL (12.0-15.0); Mean Corpuscular HGB Conc 30.1 g/dl (32-36); Mean Corpuscular Hemoglobin 28.9 pg (26-34); Mean Corpuscular Volume 95.9 fl (80-100); Mean Platelet Volume 9.2 fl (7.4-10.4); Platelet Count Result 296 k/mm3 (150-375); Red Blood Count 2.46 M/mm3 (4.2-5.4); Red Cell Distribution Width 14.9 % (11.5-14.5)
[2021-02-01] MEDS: FENTANYL 2,500MCG/NS250ML(*CRX 2,500 MCG/250 ML BAG 20 MCG IV CONT ×2 (05:56→22:13)
[2021-02-01 06:04] LABS: Alanine Aminotransferase 87 U/L (4-35); Albumin Level 2.9 g/dL (3.5-5.1); Alkaline Phosphatase 104 U/L (38-126); Aspartate Amino Transferase 42 U/L (14-36); Bilirubin,Total < 0.1 mg/dL (0.2-1.3); Blood Urea Nitrogen 15 mg/dL (7-17); Calcium 8.5 mg/dL (8.4-10.2); Carbon Dioxide > 40 mmol/L (22-30); Chloride 91 mmol/L (98-107); Estimated CRCL calculation 204 ml/min; Estimated Glomerular Filt Rate > 60; Glucose 136 mg/dL (65-110); Magnesium 2.1 mg/dL (1.6-2.3); Potassium 3.5 mmol/L (3.4-5.0); Sodium 138 mmol/L (137-145)
[2021-02-01] MEDS: BUDESONIDE RESPULE NEB 0.5 MG/2 ML AMP INHALATION ×2 (08:16→20:27)
--- NOTE | 2021-02-01 09:48 | WPDINTPN ---
Progress Note: A&P Assessment and Plan (1) Acute respiratory failure with hypoxia: Code(s): J96.01 - Acute respiratory failure with hypoxia Status: Acute Assessment and Plan: Acute hypoxic respiratory failure secondary to COVID-19 pneumonia. Over the course she has developed increasing oxygen requirements, transferred to the ICU on 01/12/2021 -was on BiPAP 12/6 and 100%. Intubated 01/13 -ABG reviewed and showed worsening hypercarbia and respiratory acidosis. -tolerate permissive hypercapnia -currently PEEP 12 and 55% FiO2. Respiratory rate is limited to 30 due to high peak pressures on the ventilator. -continue daily prone ventilation -chest x-ray reviewed and no pneumothorax seen today -patient remains on fentanyl, Versed and propofol infusion -continue bronchodilators and Pulmicort -01/23/2021, sputum cultures grew normal macario (2) Pneumonia due to COVID-19 virus: Code(s): U07.1 - COVID-19; J12.82 - Pneumonia due to coronavirus disease 2019 Status: Acute Assessment and Plan: Patient tested positive for COVID on 12/25/2020. Patient is unvaccinated -she is status post Remdesivir, dexamethasone -status post a course of azithromycin and ceftriaxone on admission - completed a course of Baricitinib for 14 days -also completed a long course of steroids and now off of Solu-Medrol given patient developed UTI and bacterial pneumonia -patient was on vitamin-C, vitamin-D and zinc for more than 2 weeks -at home patient was also taking hydroxychloroquine -upon admission to the ICU, patient's was demanding to start method of ivermectin, prednisolone, nitazoxanide, fluvoxamine, cyproheptadine, famotidine, discussed with the in details and explained to him that the is no appropriate and evidence behind usage of these medications in patients with COVID-19. -continue airborne, droplet, contact isolation precaution (3) Pneumomediastinum: Code(s): J98.2 - Interstitial emphysema Status: Acute Assessment and Plan: Pneumomediastinum seen on checks x-ray on 01/25/2021 --thorax Continue to monitor at this time (4) Pneumothorax on right: Onset Date: ~01/14/21 Code(s): J93.9 - Pneumothorax, unspecified Status: Acute Assessment and Plan: Status post chest tube placement by General surgery Chest tube is on suction. No air leak at this time No pneumothorax on last chest x-ray (5) Sepsis: Code(s): A41.9 - Sepsis, unspecified organism Status: Acute Assessment and Plan: 01/22/2021: Urine cultures growing Enterococcus species and mid Proteus mirabilis (initiated ceftriaxone on 01/23/2020) 01/23/2021: Sputum cultures normal macario, initiated vancomycin on 01/23/202101/29 -repeat blood and urine cultures sent and are pending Continue vancomycin imipenem She was given IV fluid and albumin bolus 01/29 (6) Shock: Code(s): R57.9 - Shock, unspecified Status: Acute Assessment and Plan: Off Levophed at this time Will DC hydrocortisone -01/24/2021: Bilateral lower extremity venous Dopplers negative for DVT (7) Tachycardia: Code(s): R00.0 - Tachycardia, unspecified Status: Acute Assessment and Plan: Patient sinus tachycardia, could multifactorial, hypoxia, DVT, hypovolemia -will be with challenge of albumin -01/24/2021: Venous Dopplers negative for bilateral lower extremity DVT bronchodilators have been changed to p.r.n. (8) DVT prophylaxis: Code(s): Z29.9 - Encounter for prophylactic measures, unspecified Status: Acute Assessment and Plan: Lovenox SQ (9) Electrolyte abnormality: Code(s): E87.8 - Other disorders of electrolyte and fluid balance, not elsewhere classified Status: Acute Assessment and Plan: Replace low potassium Additional Plan DVT prophylaxis -Lovenox subQ Stress ulcer prophylaxis -Pepcid IV Nutrition -continue Tube Feeds hold Reglan MiraLax as
[2021-02-01] MEDS: POTASSIUM CHLORIDE 20 MEQ PACKET (FOR LIQUID) 40 MEQ FEED TUBE (10:58)
[2021-02-01] MEDS: ENOXAPARIN 40 MG/0.4 ML SYRINGE SUB-Q (10:59)
[2021-02-01] MEDS: FAMOTIDINE 20 MG/2 ML VIAL IV PUSH ×2 (10:59→21:12)
[2021-02-01] MEDS: MINERAL OIL/WHITE PETROLATUM OINTMENT 1 APPLIC EACH EYE ×2 (10:59→21:12)
[2021-02-01] MEDS: SACCHAROMYCES BOULARDII 250 MG CAPSULE PO ×2 (11:00→18:02)
[2021-02-01] MEDS: PROPOFOL IV EMULSION 100 ML 15.69 MG IV CONT ×2 (11:02→23:30)
[2021-02-01 11:46] LABS: Glucose Point of Care 161 mg/dl (65-105)
[2021-02-01 12:09] LABS: Vancomycin Trough 7.7 ug/mL (10.0-20.0)
--- NOTE | 2021-02-01 14:37 | PM.IMPN ---
Progress Note: A&P Assessment and Plan (1) Acute respiratory failure with hypoxia: Code(s): J96.01 - Acute respiratory failure with hypoxia Status: Acute Assessment and Plan: Patient with acute respiratory failure secondary to COVID pneumonia. CTA of the chest 12/30 showing no central pulmonary embolus identified (sensitivity limited by motion artifact) and patchy bilateral airspace opacities have pattern consistent with COVID-19 pneumonia. Oxygen requirement worsened requiring intubation on 01/13 despite aggressive medical treatment. She remains intubated and sedated. Continue to wean vent as tolerated. Appreciate tree driller input. Patient's family has been refusing for PEG and tracheostomy tube placement. Continue sedation with fentanyl Versed and propofol. She is not a candidate for daily sedation vacation trial. Continue mechanical ventilation with current settings. Low tidal volume strategies should be employed. Prone position for 16-18 hours if tolerated. Continue to monitor ABG and chest x-ray. Allow permissive hypercapnia. Continue bronchodilators. (2) Pneumonia due to COVID-19 virus: Code(s): U07.1 - COVID-19; J12.82 - Pneumonia due to coronavirus disease 2019 Status: Acute Assessment and Plan: Patient did not receive a COVID vaccination. She was exposed to an individual who was COVID positive. She did come in on hydroxychloroquine, zinc, vitamin-C and D from home. She began to have symptoms around 12/24/20. She was COVID positive (rapid) on 12/25/20 when in the ED. Returned to ED on 12/30 for worsening symptoms and was admitted. She has since completed Remdesivir, Dexamethasone and Baricitinib. Convalescent plasma given 01/04/21. Vit C,D, and zinc were ordered. Lasix IV given intermittently. Completed a course of Azithromycin as well. demanded that his be treated with Solu-Medrol, Vit C and Ivermectin. Explained that Ivermectin was not standard of care but we did proceed with the other treatment. She was treated with Pulmicort, Vit C/Zinc/Vit D. Solu-Medrol, vitamins and minerals have since been discontinued. Continue supportive care. Solu-Cortef started. Consider discontinuation of precautions as she has passed 10 days window. (3) Pneumomediastinum: Code(s): J98.2 - Interstitial emphysema Status: Acute Assessment and Plan: Pneumomediastinum seen on checks x-ray on 01/25/2021 Continue to monitor at this time. She currently has a chest tube on the right side for pneumothorax. (4) Pneumothorax on right: Onset Date: ~01/14/21 Code(s): J93.9 - Pneumothorax, unspecified Status: Acute Assessment and Plan: Status post chest tube placement by General surgery. Chest tube is on suction. No air leak at this time (5) Sepsis: Code(s): A41.9 - Sepsis, unspecified organism Status: Acute Assessment and Plan: 01/22/2021: Urine cultures growing Enterococcus species and mid Proteus mirabilis (initiated ceftriaxone on 01/23/2020) 01/23/2021: Sputum cultures normal macario, initiated vancomycin on 01/23/202101/29 -repeat blood and urine cultures sent and are pending Continue vancomycin imipenem Pressors have been weaned off. Continue to monitor hemodynamics closely. (6) Shock: Code(s): R57.9 - Shock, unspecified Status: Acute Assessment and Plan: Continue hydrocortisone. Start weaning if she remained off pressors. Levophed has been weaned off. Continue to monitor hemodynamics closely. 01/24/2021: Bilateral lower extremity venous Dopplers negative for DVT (7) Tachycardia: Code(s): R00.0 - Tachycardia, unspecified Status: Acute Assessment and Plan: Patient sinus tachycardia, could multifactorial, hypoxia, DVT, hypovolemia -01/24/2021: Venous Dopplers negative for bilateral lower extremity DVT bronchodilators have been changed to p.r.n. (8) DVT prophylaxis:
[2021-02-01] MEDS: PROPOFOL IV EMULSION 100 ML 17.93 MG IV CONT (15:26)
[2021-02-01 18:29] LABS: Glucose Point of Care 126 mg/dl (65-105)
[2021-02-02] VITALS (39 sets, daily range): BP systolic 104–176; BP diastolic 45–84; PULSE 67–146; RESP 15–69; TEMP 36.3–37.7; O2SAT 89–98
[2021-02-02 03:51] LABS: Glucose Point of Care 123 mg/dl (65-105)
[2021-02-02 04:08] LABS: Hematocrit 25.4 % (37.0-47.0); Hemoglobin 7.4 g/dL (12.0-15.0); Mean Corpuscular HGB Conc 29.1 g/dl (32-36); Mean Corpuscular Hemoglobin 27.9 pg (26-34); Mean Corpuscular Volume 95.8 fl (80-100); Mean Platelet Volume 9.1 fl (7.4-10.4); Platelet Count Result 343 k/mm3 (150-375); Red Blood Count 2.65 M/mm3 (4.2-5.4); Red Cell Distribution Width 15.2 % (11.5-14.5); White Blood Count 11.8 K/mm3 (4.5-10.0)
[2021-02-02] MEDS: CENTRAL LINE FLUSH 10 ML IV PUSH ×3 (04:18→21:14)
[2021-02-02 04:29] LABS: Alanine Aminotransferase 92 U/L (4-35); Albumin Level 2.9 g/dL (3.5-5.1); Alkaline Phosphatase 110 U/L (38-126); Aspartate Amino Transferase 31 U/L (14-36); Bilirubin,Total 0.3 mg/dL (0.2-1.3); Blood Urea Nitrogen 13 mg/dL (7-17); Calcium 8.7 mg/dL (8.4-10.2); Carbon Dioxide > 40 mmol/L (22-30); Chloride 83 mmol/L (98-107); Estimated CRCL calculation 226 ml/min; Estimated Glomerular Filt Rate > 60; Glucose 115 mg/dL (65-110); Magnesium 1.8 mg/dL (1.6-2.3); Potassium 3.2 mmol/L (3.4-5.0); Sodium 134 mmol/L (137-145)
[2021-02-02 05:42] LABS: Alveolar/Arterial O2 Gradient 267.8 mmHg; Base Excess ABG 21.9 mEq/l (+/-2.0); Carboxyhemoglobin 0.3 % THb (0-2.0); Fractional Inspired Oxygen 70 %; HCO3 ABG 51.5 mEq/l (22.0-26.0); Methemoglobin ABG 0.6 %THb (0-1.5); Oxygen Content ABG 11.9 %vol (16.0-22.0); Oxygen Saturation ABG 97.6 % (95.0-100.0); Oxyhemoglobin 96.7 % THb (90.0-100.0); PO2 ABG 118.9 mmHg (80.0-100.0); Reduced Hemoglobin 2.4 %THb (0-5.0); Total Hemoglobin 8.6 g/dL (12.0-18.0)
[2021-02-02 05:44] LABS: PCO2 ABG 104.6 mmHg (35.0-45.0)
[2021-02-02 05:45] LABS: Arterial Blood Gas PEEP 12 cmH2O; Arterial Blood Gas Tidal Volume 340 ml; Arterial Blood Gas Vent Mode CMV; Arterial Blood Gas Ventilator rate 12 /MIN; Device VENTILATOR; Modified Allen's Test Pass; Site Drawn RIGHT RADIAL
[2021-02-02] MEDS: PROPOFOL IV EMULSION 100 ML 8.96 MG IV CONT (06:52)
[2021-02-02] MEDS: BUDESONIDE RESPULE NEB 0.5 MG/2 ML AMP INHALATION ×2 (08:22→21:18)
[2021-02-02] MEDS: POTASSIUM CHLORIDE 20 MEQ PACKET (FOR LIQUID) 40 MEQ FEED TUBE (08:50)
[2021-02-02] MEDS: SACCHAROMYCES BOULARDII 250 MG CAPSULE PO ×2 (08:51→16:37)
[2021-02-02] MEDS: ENOXAPARIN 40 MG/0.4 ML SYRINGE SUB-Q (08:51)
[2021-02-02] MEDS: MINERAL OIL/WHITE PETROLATUM OINTMENT 1 APPLIC EACH EYE ×2 (08:51→21:13)
[2021-02-02] MEDS: FAMOTIDINE 20 MG/2 ML VIAL IV PUSH ×2 (08:51→21:13)
--- NOTE | 2021-02-02 10:35 | WPDINTPN ---
Progress Note: A&P Assessment and Plan (1) Acute respiratory failure with hypoxia: Code(s): J96.01 - Acute respiratory failure with hypoxia Status: Acute Assessment and Plan: Acute hypoxic respiratory failure secondary to COVID-19 pneumonia. Over the course she has developed increasing oxygen requirements, transferred to the ICU on 01/12/2021 -was on BiPAP 12/6 and 100%. Intubated 01/13 -ABG reviewed and showed worsening hypercarbia and respiratory acidosis. -tolerate permissive hypercapnia -currently PEEP 12 and 60% FiO2. Decrease PEEP to 10 - Respiratory rate is limited to 30 due to high peak pressures on the ventilator. -continue daily prone ventilation -chest x-ray reviewed and no pneumothorax seen today -patient remains on fentanyl, Versed and propofol infusion -continue bronchodilators and Pulmicort -01/23/2021, sputum cultures grew normal macario (2) Pneumonia due to COVID-19 virus: Code(s): U07.1 - COVID-19; J12.82 - Pneumonia due to coronavirus disease 2019 Status: Acute Assessment and Plan: Patient tested positive for COVID on 12/25/2020. Patient is unvaccinated -she is status post Remdesivir, dexamethasone -status post a course of azithromycin and ceftriaxone on admission - completed a course of Baricitinib for 14 days -also completed a long course of steroids and now off of Solu-Medrol given patient developed UTI and bacterial pneumonia -patient was on vitamin-C, vitamin-D and zinc for more than 2 weeks -at home patient was also taking hydroxychloroquine -upon admission to the ICU, patient's was demanding to start method of ivermectin, prednisolone, nitazoxanide, fluvoxamine, cyproheptadine, famotidine, discussed with the in details and explained to him that the is no appropriate and evidence behind usage of these medications in patients with COVID-19. -continue airborne, droplet, contact isolation precaution (3) Pneumomediastinum: Code(s): J98.2 - Interstitial emphysema Status: Acute Assessment and Plan: Pneumomediastinum seen on checks x-ray on 01/25/2021 --thorax Continue to monitor at this time (4) Pneumothorax on right: Onset Date: ~01/14/21 Code(s): J93.9 - Pneumothorax, unspecified Status: Acute Assessment and Plan: Status post chest tube placement by General surgery Chest tube is on suction. No air leak at this time No pneumothorax on last chest x-ray (5) Sepsis: Code(s): A41.9 - Sepsis, unspecified organism Status: Acute Assessment and Plan: 01/22/2021: Urine cultures growing Enterococcus species and mid Proteus mirabilis (initiated ceftriaxone on 01/23/2020) 01/23/2021: Sputum cultures normal macario, initiated vancomycin on 01/23/202101/29 -repeat blood and urine cultures sent and are pending Continue vancomycin imipenem She was given IV fluid and albumin bolus 01/29. Off vasopressors WBC close to normal (6) Shock: Code(s): R57.9 - Shock, unspecified Status: Acute Assessment and Plan: Off Levophed at this time Off hydrocortisone -01/24/2021: Bilateral lower extremity venous Dopplers negative for DVT (7) Tachycardia: Code(s): R00.0 - Tachycardia, unspecified Status: Acute Assessment and Plan: Patient sinus tachycardia, could multifactorial, hypoxia, DVT, hypovolemia -will be with challenge of albumin -01/24/2021: Venous Dopplers negative for bilateral lower extremity DVT bronchodilators have been changed to p.r.n. (8) DVT prophylaxis: Code(s): Z29.9 - Encounter for prophylactic measures, unspecified Status: Acute Assessment and Plan: Lovenox SQ (9) Electrolyte abnormality: Code(s): E87.8 - Other disorders of electrolyte and fluid balance, not elsewhere classified Status: Acute Assessment and Plan: Replace low potassium Additional Plan DVT prophylaxis -Lovenox subQ Stress ulcer prophylaxis -Pepci
[2021-02-02] MEDS: MIDAZOLAM 100MG/NS 100ML(*CRX) 100 MG/100 ML BAG IV CONT (11:16)
[2021-02-02] MEDS: FENTANYL 2,500MCG/NS250ML(*CRX 2,500 MCG/250 ML BAG 17.5 MCG IV CONT (11:16)
[2021-02-02 11:24] LABS: Glucose Point of Care 109 mg/dl (65-105)
[2021-02-02] MEDS: ROCURONIUM BROMIDE 50 MG/5 ML VIAL IV PUSH (11:38)
[2021-02-02] MEDS: METOPROLOL TARTRATE INJ 5 MG/5 ML VIAL IV PUSH (11:44)
--- NOTE | 2021-02-02 12:08 | PCDIET ---
ICU Rounding Note: Patient tolerating Vital 1.2 at 50mL/hr goal rate with 30mL water flush every 4 hours. Last recorded weight is 94.1kg which is increased significantly from last review. Recommend reweighing to ensure accuracy. +I/O noted. Bowel Motility: BM x 2 on 02/01/21. Labs Reviewed: WBC (11.8), RBC (2.65), Hgb (7.4), Hct (25.4), Glu (115), Cr (0.2), K (3.2), Alb (2.9) Meds Noted: Pulmicort, Pepcid, Fentanyl, Primaxin, Versed, Florastor, Vancomycin, KCl, Propofol (rate of 8.964mL/hr provides 237kcal per day) Additional Notes: No documented skin breakdown. Following daily in ICU rounds. Assessing/reassessing every Tuesday/Tuesday.
--- NOTE | 2021-02-02 12:58 | PM.IMPN ---
Progress Note: A&P Assessment and Plan (1) Acute respiratory failure with hypoxia: Code(s): J96.01 - Acute respiratory failure with hypoxia Status: Acute Assessment and Plan: Patient with acute respiratory failure secondary to COVID pneumonia. CTA of the chest 12/30 showing no central pulmonary embolus identified (sensitivity limited by motion artifact) and patchy bilateral airspace opacities have pattern consistent with COVID-19 pneumonia. Oxygen requirement worsened requiring intubation on 01/13 despite aggressive medical treatment. She remains intubated and sedated. Proning patient as she tolerates. PEG and trach was being planned but on hold due to family wishes. Continue to wean vent as tolerated. Appreciate kettle skimmer input. (2) Shock: Code(s): R57.9 - Shock, unspecified Status: Acute Assessment and Plan: Patient became hypotensive on 01/14 requiring Levophed. Hypotension felt related to sedation and hypovolemia. IV fluids given. BCx 01/10 negative; BCx repeated 01/22 and are negative. She has required Levophed off/on due to fluid status and/or infections etiology. UCx 01/22 growing Proteus and Enterococcus. She was treated with Rocephin and Vanco. Was having recurrent fevers and also hypothermic. WBC only mildly elevated. Patient was re-cultered 01/29 and broad spectrum abx started. BCx 01/29 NGTD and UCx negative. Continue IV abx Day 5. (3) Pneumothorax on right: Onset Date: ~01/14/21 Code(s): J93.9 - Pneumothorax, unspecified Status: Acute Assessment and Plan: Patient with PTX on the right with CT in place. CXR today reviewed showing no right PTX. Chest tube management per kettle skimmer. (4) Pneumomediastinum: Code(s): J98.2 - Interstitial emphysema Status: Acute Assessment and Plan: Patient had evidence of pneumomediastinum by CXR with SQ crepitus. Serial CXR showing that most of the pneumomediastinum has resolved. SQ emphysema no longer present. Moniotr closely since on high PEEP. Continue daily CXR. (5) Pneumonia due to COVID-19 virus: Code(s): U07.1 - COVID-19; J12.82 - Pneumonia due to coronavirus disease 2019 Status: Acute Assessment and Plan: Patient did not receive a COVID vaccination. She was exposed to an individual who was COVID positive. She did come in on hydroxychloroquine, zinc, vitamin-C and D from home. She began to have symptoms around 12/24/20. She was COVID positive (rapid) on 12/25/20 when in the ED. Returned to ED on 12/30 for worsening symptoms and was admitted. She has since completed Remdesivir, Dexamethasone and Baricitinib. Convalescent plasma given 01/04/21. Vit C,D, and zinc were ordered. Lasix IV given intermittently. Completed a course of Azithromycin as well. demanded that his be treated with Solu-Medrol, Vit C and Ivermectin. Explained that Ivermectin was not standard of care but we did proceed with the other treatment. She was treated with Pulmicort, Vit C/Zinc/Vit D. Solu-Medrol, vitamins and minerals have since been discontinued. Continue supportive care. (6) Acute respiratory acidosis: Code(s): E87.2 - Acidosis Status: Acute Assessment and Plan: pH was 7.16 and NaBicarb IV given 01/15. Allowing for permissive hypercapnia. Serum bicarb >40. pH noted with pCO2 now 105 today. Vent adjustments per kettle skimmer. Appreciate kettle skimmer input. (7) UTI (urinary tract infection): Code(s): N39.0 - Urinary tract infection, site not specified Status: Acute Assessment and Plan: UCx 01/22 growing Proteus and enterococcus. Repeat UCx negative. As above. (8) Transaminitis: Code(s): R74.01 - Elevation of levels of liver transaminase levels Status: Acute Assessment and Plan: Liver enzymes elevated on admission felt secondary to COVID. Hepatitis panel negative. RUQ US showing no acute findings. Levels normalized but increased again on 01/15.
[2021-02-02] MEDS: PROPOFOL IV EMULSION 100 ML 15.69 MG IV CONT ×2 (15:19→22:20)
[2021-02-02 18:22] LABS: Glucose Point of Care 131 mg/dl (65-105)
[2021-02-02] MEDS: IPRATROPIUM BR 0.02% INH SOLN 0.5 MG/2.5 ML VIAL INHALATION (21:17)
[2021-02-02] MEDS: LEVALBUTEROL NEB 1.25 MG/3 ML 0.63 MG INHALATION (21:17)
[2021-02-03] VITALS (33 sets, daily range): BP systolic 96–156; BP diastolic 51–102; PULSE 89–123; RESP 22–39; TEMP 37.3–37.8; O2SAT 89–100
[2021-02-03 00:40] LABS: Glucose Point of Care 100 mg/dl (65-105)
[2021-02-03 01:27] LABS: Vancomycin Trough 10.4 ug/mL (10.0-20.0)
[2021-02-03] MEDS: FENTANYL 2,500MCG/NS250ML(*CRX 2,500 MCG/250 ML BAG 17.5 MCG IV CONT ×2 (01:54→15:46)
[2021-02-03] MEDS: PROPOFOL IV EMULSION 100 ML 15.69 MG IV CONT ×3 (03:55→23:24)
[2021-02-03 04:42] LABS: Alveolar/Arterial O2 Gradient 234.1 mmHg; Base Excess ABG 22.9 mEq/l (+/-2.0); Carboxyhemoglobin 0.6 % THb (0-2.0); Fractional Inspired Oxygen 60 %; HCO3 ABG 50.9 mEq/l (22.0-26.0); Methemoglobin ABG 0.3 %THb (0-1.5); Oxygen Content ABG 12.1 %vol (16.0-22.0); Oxygen Saturation ABG 97.2 % (95.0-100.0); Oxyhemoglobin 96.4 % THb (90.0-100.0); PO2 FiO2 Ratio Arterial Blood 1.68 %; Reduced Hemoglobin 2.7 %THb (0-5.0); Total Hemoglobin 8.8 g/dL (12.0-18.0); pH ABG 7.399 (7.350-7.450)
[2021-02-03 04:43] LABS: Device VENTILATOR; Modified Allen's Test Unable to perform; PCO2 ABG 84.3 mmHg (35.0-45.0); Site Drawn RIGHT RADIAL
[2021-02-03 04:44] LABS: Arterial Blood Gas PEEP 10 cmH2O; Arterial Blood Gas Tidal Volume 340 ml; Arterial Blood Gas Vent Mode CMV; Arterial Blood Gas Ventilator rate 30 /MIN
[2021-02-03 05:05] LABS: Hematocrit 25.2 % (37.0-47.0); Hemoglobin 7.8 g/dL (12.0-15.0); Mean Corpuscular Hemoglobin 28.9 pg (26-34); Mean Corpuscular Volume 93.3 fl (80-100); Mean Platelet Volume 8.8 fl (7.4-10.4); Platelet Count Result 368 k/mm3 (150-375); Red Cell Distribution Width 15.3 % (11.5-14.5)
[2021-02-03 05:26] LABS: Alanine Aminotransferase 60 U/L (4-35); Albumin Level 2.8 g/dL (3.5-5.1); Alkaline Phosphatase 105 U/L (38-126); Aspartate Amino Transferase 32 U/L (14-36); Bilirubin,Total 0.3 mg/dL (0.2-1.3); Blood Urea Nitrogen 9 mg/dL (7-17); Calcium 8.2 mg/dL (8.4-10.2); Carbon Dioxide > 40 mmol/L (22-30); Chloride 77 mmol/L (98-107); Estimated CRCL calculation 226 ml/min; Estimated Glomerular Filt Rate > 60; Glucose 122 mg/dL (65-110); Magnesium 1.6 mg/dL (1.6-2.3); Potassium 3.2 mmol/L (3.4-5.0); Sodium 129 mmol/L (137-145)
[2021-02-03] MEDS: CENTRAL LINE FLUSH 10 ML IV PUSH ×3 (05:58→23:31)
[2021-02-03] MEDS: MIDAZOLAM 100MG/NS 100ML(*CRX) 100 MG/100 ML BAG IV CONT ×2 (06:14→23:31)
[2021-02-03] MEDS: ENOXAPARIN 40 MG/0.4 ML SYRINGE SUB-Q (09:00)
[2021-02-03] MEDS: FAMOTIDINE 20 MG/2 ML VIAL IV PUSH ×2 (09:00→20:30)
[2021-02-03] MEDS: SACCHAROMYCES BOULARDII 250 MG CAPSULE PO ×2 (09:00→18:07)
[2021-02-03] MEDS: MINERAL OIL/WHITE PETROLATUM OINTMENT 1 APPLIC EACH EYE ×2 (09:00→20:30)
[2021-02-03] MEDS: BUDESONIDE RESPULE NEB 0.5 MG/2 ML AMP INHALATION ×2 (09:08→21:03)
--- NOTE | 2021-02-03 11:13 | PCDIET ---
Nutrition Follow-Up Complete: Nutrition Diagnosis: Suboptimal oral intake related to COVID as evidenced by average intake of 65% of recorded meals over last week with inability to eat breakfast today. Nutrition Goal: Patient to meet estimated nutritional needs. Goal met. Patient tolerating Vital 1.2 at 50mL/hr with 30mL water flush every 4 hours. If medically appropriate, would supplement potassium. Last recorded weight is 76.3 kg which is down from prior weights. Noted 02/02/21 weight appears to be an outlier. Bowel Motility: Documented 150mL output in [facility] on 02/02/21. Labs Reviewed: Hgb (11.0), Hct (2.70), Hgb (7.8), Hct (25.2), Glu (122), Cr (0.2), K (3.2), Na (129), Alb (2.8) Meds Noted: Propofol (rate of 15.69mL/hr provides 414kcal per day), Pulmicort, Pepcid, Fentanyl, Primaxin, Atrovent, Xopenex, Versed, Florastor, Vancomycin Additional Notes: No documented skin breakdown. Will continue to monitor with same goal. Nutrition Monitoring and Evaluation: Follow up every Tuesday/Tuesday.
--- NOTE | 2021-02-03 11:32 | WPDINTPN ---
Progress Note: A&P Assessment and Plan (1) Acute respiratory failure with hypoxia: Code(s): J96.01 - Acute respiratory failure with hypoxia Status: Acute Assessment and Plan: Acute hypoxic respiratory failure secondary to COVID-19 pneumonia. Over the course she has developed increasing oxygen requirements, transferred to the ICU on 01/12/2021 -was on BiPAP 12/6 and 100%. Intubated 01/13 -ABG reviewed and showed worsening hypercarbia and respiratory acidosis. Have increased I to E ratio on the ventilator -tolerate permissive hypercapnia -currently PEEP 10 and 60% FiO2. Will continue to wean FiO2 as tolerated - Respiratory rate is limited to 30 due to high peak pressures on the ventilator. -continue daily prone ventilation -02/03/2021 chest x-ray reviewed and no pneumothorax seen today -patient remains on fentanyl, Versed and propofol infusion -continue bronchodilators and Pulmicort -01/23/2021, sputum cultures grew normal macario (2) Pneumonia due to COVID-19 virus: Code(s): U07.1 - COVID-19; J12.82 - Pneumonia due to coronavirus disease 2019 Status: Acute Assessment and Plan: Patient tested positive for COVID on 12/25/2020. Patient is unvaccinated -she is status post Remdesivir, dexamethasone -status post a course of azithromycin and ceftriaxone on admission - completed a course of Baricitinib for 14 days -also completed a long course of steroids and now off of Solu-Medrol given patient developed UTI and bacterial pneumonia -patient was on vitamin-C, vitamin-D and zinc for more than 2 weeks -at home patient was also taking hydroxychloroquine -upon admission to the ICU, patient's was demanding to start method of ivermectin, prednisolone, nitazoxanide, fluvoxamine, cyproheptadine, famotidine, discussed with the in details and explained to him that the is no appropriate and evidence behind usage of these medications in patients with COVID-19. -continue airborne, droplet, contact isolation precaution (3) Pneumomediastinum: Code(s): J98.2 - Interstitial emphysema Status: Acute Assessment and Plan: Pneumomediastinum seen on checks x-ray on 01/25/2021 which has improved since Continue to monitor at this time (4) Pneumothorax on right: Onset Date: ~01/14/21 Code(s): J93.9 - Pneumothorax, unspecified Status: Acute Assessment and Plan: Status post chest tube placement by General surgery Chest tube is on suction. No air leak at this time No pneumothorax on last chest x-ray (5) Sepsis: Code(s): A41.9 - Sepsis, unspecified organism Status: Acute Assessment and Plan: 01/22/2021: Urine cultures growing Enterococcus species and mid Proteus mirabilis (initiated ceftriaxone on 01/23/2020) 01/23/2021: Sputum cultures normal macario, initiated vancomycin on 01/23/202101/29 -repeat blood and urine cultures negative Continue vancomycin, imipenem, for sinusitis She was given IV fluid and albumin bolus 01/29. Off vasopressors WBC close to normal (6) Shock: Code(s): R57.9 - Shock, unspecified Status: Acute Assessment and Plan: Off Levophed at this time Off hydrocortisone -01/24/2021: Bilateral lower extremity venous Dopplers negative for DVT (7) Tachycardia: Code(s): R00.0 - Tachycardia, unspecified Status: Acute Assessment and Plan: Improved Patient sinus tachycardia, could multifactorial, hypoxia, DVT, hypovolemia -01/24/2021: Venous Dopplers negative for bilateral lower extremity DVT bronchodilators have been changed to p.r.n. (8) DVT prophylaxis: Code(s): Z29.9 - Encounter for prophylactic measures, unspecified Status: Acute Assessment and Plan: Lovenox SQ (9) Electrolyte abnormality: Code(s): E87.8 - Other disorders of electrolyte and fluid balance, not elsewhere classified Status: Acute Assessment and Plan: Replace low potassium Nasir
[2021-02-03 12:26] LABS: Glucose Point of Care 107 mg/dl (65-105)
[2021-02-03] MEDS: POTASSIUM CHLORIDE 20 MEQ PACKET (FOR LIQUID) 40 MEQ PO (14:47)
--- NOTE | 2021-02-03 15:32 | PM.IMPN ---
Progress Note: A&P Assessment and Plan (1) Acute respiratory failure with hypoxia: Code(s): J96.01 - Acute respiratory failure with hypoxia Status: Acute Assessment and Plan: Patient with acute respiratory failure secondary to COVID pneumonia. CTA of the chest 12/30 showing no central pulmonary embolus identified (sensitivity limited by motion artifact) and patchy bilateral airspace opacities have pattern consistent with COVID-19 pneumonia. Oxygen requirement worsened requiring intubation on 01/13 despite aggressive medical treatment. She remains intubated and sedated. Proning patient as she tolerates. PEG and trach was being planned but on hold due to family wishes. Continue to wean vent as tolerated. Appreciate legal transcriber input. (2) Shock: Code(s): R57.9 - Shock, unspecified Status: Acute Assessment and Plan: Patient became hypotensive on 01/14 requiring Levophed. Hypotension felt related to sedation and hypovolemia. IV fluids given. BCx 01/10 negative; BCx repeated 01/22 and are negative. She has required Levophed off/on due to fluid status and/or infections etiology. UCx 01/22 growing Proteus and Enterococcus treated with Rocephin and Vanco. Was having recurrent fevers and also hypothermic. WBC only mildly elevated. Patient was re-cultured 01/29 and broad spectrum abx started. BCx 01/29 NGTD and UCx negative. Continue IV abx Day 6. (3) Pneumothorax on right: Onset Date: ~01/14/21 Code(s): J93.9 - Pneumothorax, unspecified Status: Acute Assessment and Plan: Patient with PTX on the right with CT in place. CXR today reviewed showing no right PTX. Chest tube management per legal transcriber. (4) Pneumomediastinum: Code(s): J98.2 - Interstitial emphysema Status: Acute Assessment and Plan: Patient had evidence of pneumomediastinum by CXR with SQ crepitus. Serial CXR showing that most of the pneumomediastinum has resolved. SQ emphysema no longer present. Moniotr closely since on high PEEP. Continue daily CXR. (5) Pneumonia due to COVID-19 virus: Code(s): U07.1 - COVID-19; J12.82 - Pneumonia due to coronavirus disease 2019 Status: Acute Assessment and Plan: Patient did not receive a COVID vaccination. She was exposed to an individual who was COVID positive. She did come in on hydroxychloroquine, zinc, vitamin-C and D from home. She began to have symptoms around 12/24/20. She was COVID positive (rapid) on 12/25/20 when in the ED. Returned to ED on 12/30 for worsening symptoms and was admitted. She has since completed Remdesivir, Dexamethasone and Baricitinib. Convalescent plasma given 01/04/21. Vit C,D, and zinc were ordered. Lasix IV given intermittently. Completed a course of Azithromycin as well. demanded that his be treated with Solu-Medrol, Vit C and Ivermectin. Explained that Ivermectin was not standard of care but we did proceed with the other treatment. She was treated with Pulmicort, Vit C/Zinc/Vit D. Solu-Medrol, vitamins and minerals have since been discontinued. Continue supportive care. (6) Acute respiratory acidosis: Code(s): E87.2 - Acidosis Status: Acute Assessment and Plan: pH was 7.16 and NaBicarb IV given 01/15. Allowing for permissive hypercapnia. Serum bicarb >40. pH normal today with pCO2 now 84 today. Vent adjustments per legal transcriber. Appreciate legal transcriber input. (7) UTI (urinary tract infection): Code(s): N39.0 - Urinary tract infection, site not specified Status: Acute Assessment and Plan: UCx 01/22 growing Proteus and enterococcus. Repeat UCx 01/29 negative. As above. (8) Transaminitis: Code(s): R74.01 - Elevation of levels of liver transaminase levels Status: Acute Assessment and Plan: Liver enzymes elevated on admission felt secondary to COVID. Hepatitis panel negative. RUQ US showing no acute findings. Levels normalized but increased again on 12/25
[2021-02-03 17:55] LABS: Glucose Point of Care 119 mg/dl (65-105)
[2021-02-04] VITALS (32 sets, daily range): BP systolic 91–169; BP diastolic 45–84; PULSE 88–125; RESP 21–40; TEMP 37.2–37.9; O2SAT 90–94
[2021-02-04 00:34] LABS: Glucose Point of Care 131 mg/dl (65-105)
[2021-02-04 04:28] LABS: Hematocrit 24.6 % (37.0-47.0); Mean Corpuscular HGB Conc 32.5 g/dl (32-36); Mean Corpuscular Hemoglobin 29.6 pg (26-34); Mean Corpuscular Volume 91.1 fl (80-100); Mean Platelet Volume 9.3 fl (7.4-10.4); Platelet Count Result 454 k/mm3 (150-375); Red Cell Distribution Width 15.7 % (11.5-14.5); White Blood Count 10.1 K/mm3 (4.5-10.0)
[2021-02-04 04:48] LABS: Alanine Aminotransferase 41 U/L (4-35); Albumin Level 2.7 g/dL (3.5-5.1); Alkaline Phosphatase 100 U/L (38-126); Aspartate Amino Transferase 25 U/L (14-36); Bilirubin,Total < 0.1 mg/dL (0.2-1.3); Blood Urea Nitrogen 8 mg/dL (7-17); Carbon Dioxide > 40 mmol/L (22-30); Chloride 78 mmol/L (98-107); Estimated CRCL calculation 202 ml/min; Estimated Glomerular Filt Rate > 60; Glucose 110 mg/dL (65-110); Magnesium 1.6 mg/dL (1.6-2.3); Potassium 3.3 mmol/L (3.4-5.0); Sodium 126 mmol/L (137-145)
[2021-02-04 04:55] LABS: Base Excess ABG 24.8 mEq/l (+/-2.0); Carboxyhemoglobin 0.5 % THb (0-2.0); Fractional Inspired Oxygen 65 %; HCO3 ABG 53.8 mEq/l (22.0-26.0); Methemoglobin ABG 0.3 %THb (0-1.5); Oxygen Content ABG 12.2 %vol (16.0-22.0); Oxygen Saturation ABG 92.9 % (95.0-100.0); PO2 ABG 72.1 mmHg (80.0-100.0); PO2 FiO2 Ratio Arterial Blood 1.11 %; Reduced Hemoglobin 6.2 %THb (0-5.0); Total Hemoglobin 9.3 g/dL (12.0-18.0); pH ABG 7.379 (7.350-7.450)
[2021-02-04 04:58] LABS: PCO2 ABG 93.2 mmHg (35.0-45.0)
[2021-02-04 04:59] LABS: Device VENTILATOR; Site Drawn LEFT RADIAL
[2021-02-04 05:00] LABS: Arterial Blood Gas PEEP 10 cmH2O; Arterial Blood Gas Tidal Volume 340 ml; Arterial Blood Gas Vent Mode CMV; Arterial Blood Gas Ventilator rate 30 /MIN
[2021-02-04] MEDS: CENTRAL LINE FLUSH 10 ML IV PUSH ×3 (05:01→20:51)
[2021-02-04] MEDS: PROPOFOL IV EMULSION 100 ML 15.69 MG IV CONT (05:11)
[2021-02-04] MEDS: FENTANYL 2,500MCG/NS250ML(*CRX 2,500 MCG/250 ML BAG 17.5 MCG IV CONT ×2 (05:13→20:41)
[2021-02-04 05:22] LABS: Glucose Point of Care 124 mg/dl (65-105)
[2021-02-04] MEDS: BUDESONIDE RESPULE NEB 0.5 MG/2 ML AMP INHALATION ×2 (08:10→20:20)
[2021-02-04] MEDS: ENOXAPARIN 40 MG/0.4 ML SYRINGE SUB-Q (08:17)
[2021-02-04] MEDS: MAGNESIUM SULF 2 GM/WATER 50ML 2 GM/50 ML BAG IVPB (08:17)
[2021-02-04] MEDS: FAMOTIDINE 20 MG/2 ML VIAL IV PUSH ×2 (08:18→20:51)
[2021-02-04] MEDS: POTASSIUM CHLORIDE 20 MEQ PACKET (FOR LIQUID) 40 MEQ FEED TUBE ×2 (08:18→17:23)
[2021-02-04] MEDS: MINERAL OIL/WHITE PETROLATUM OINTMENT 1 APPLIC EACH EYE ×2 (08:18→20:51)
[2021-02-04] MEDS: SACCHAROMYCES BOULARDII 250 MG CAPSULE PO ×2 (08:18→17:24)
--- NOTE | 2021-02-04 08:18 | WPDINTPN ---
Progress Note: A&P Assessment and Plan (1) Acute respiratory failure with hypoxia: Code(s): J96.01 - Acute respiratory failure with hypoxia Status: Acute Assessment and Plan: Acute hypoxic respiratory failure secondary to COVID-19 pneumonia. Over the course she has developed increasing oxygen requirements, transferred to the ICU on 01/12/2021 -was on BiPAP 12/6 and 100%. Intubated 01/13 -ABG reviewed and showed worsening hypercarbia, made ventilator changes, increased I to E ratio, decreased respiratory rate and increased tidal volume. Patient also has elevated peak pressures which improved after I made no ventilator changes. Patient was also tried on pressure control ventilation without any change in her peak pressures -tolerate permissive hypercapnia. Will obtain blood gas this afternoon -currently PEEP 8 and 65% FiO2. Will continue to wean FiO2 as tolerated -will continue to prone patient -02/04/2021 chest x-ray reviewed and no pneumothorax seen today -patient remains on fentanyl, Versed and propofol infusion -continue bronchodilators and Pulmicort -01/23/2021, sputum cultures grew normal macario (2) Pneumonia due to COVID-19 virus: Code(s): U07.1 - COVID-19; J12.82 - Pneumonia due to coronavirus disease 2019 Status: Acute Assessment and Plan: Patient tested positive for COVID on 12/25/2020. Patient is unvaccinated -she is status post Remdesivir, dexamethasone -status post a course of azithromycin and ceftriaxone on admission - completed a course of Baricitinib for 14 days -also completed a long course of steroids and now off of Solu-Medrol given patient developed UTI and bacterial pneumonia -patient was on vitamin-C, vitamin-D and zinc for more than 2 weeks -at home patient was also taking hydroxychloroquine -upon admission to the ICU, patient's was demanding to start method of ivermectin, prednisolone, nitazoxanide, fluvoxamine, cyproheptadine, famotidine, discussed with the in details and explained to him that the is no appropriate and evidence behind usage of these medications in patients with COVID-19. -continue airborne, droplet, contact isolation precaution (3) Pneumomediastinum: Code(s): J98.2 - Interstitial emphysema Status: Acute Assessment and Plan: Pneumomediastinum seen on checks x-ray on 01/25/2021 which has improved since Continue to monitor at this time (4) Pneumothorax on right: Onset Date: ~01/14/21 Code(s): J93.9 - Pneumothorax, unspecified Status: Acute Assessment and Plan: Status post chest tube placement by General surgery Chest tube is on suction. No air leak at this time No pneumothorax on last chest x-ray (5) Sepsis: Code(s): A41.9 - Sepsis, unspecified organism Status: Acute Assessment and Plan: 01/22/2021: Urine cultures growing Enterococcus species and mid Proteus mirabilis (initiated ceftriaxone on 01/23/2020) 01/23/2021: Sputum cultures normal macario, initiated vancomycin on 01/23/202101/29 -repeat blood and urine cultures negative Continue vancomycin, imipenem, for sinusitis (initiated on 02/01/2021), will continue for total of 7 days She was given IV fluid and albumin bolus 01/29. Off vasopressors WBC close to normal (6) Shock: Code(s): R57.9 - Shock, unspecified Status: Acute Assessment and Plan: Off Levophed at this time Off hydrocortisone -01/24/2021: Bilateral lower extremity venous Dopplers negative for DVT (7) Tachycardia: Code(s): R00.0 - Tachycardia, unspecified Status: Acute Assessment and Plan: Improved Patient sinus tachycardia, could multifactorial, hypoxia, DVT, hypovolemia -01/24/2021: Venous Dopplers negative for bilateral lower extremity DVT bronchodilators have been changed to p.r.n. (8) DVT prophylaxis: Code(s): Z29.9 - Encounter for prophylactic measures, unspecified Status: Acute Assess
--- NOTE | 2021-02-04 11:17 | PM.IMPN ---
Progress Note: A&P Assessment and Plan (1) Acute respiratory failure with hypoxia: Code(s): J96.01 - Acute respiratory failure with hypoxia Status: Acute Assessment and Plan: Patient with acute respiratory failure secondary to COVID pneumonia. CTA of the chest 12/30 showing no central pulmonary embolus identified (sensitivity limited by motion artifact) and patchy bilateral airspace opacities have pattern consistent with COVID-19 pneumonia. Oxygen requirement worsened requiring intubation on 01/13 despite aggressive medical treatment. She remains intubated and sedated. Proning patient as she tolerates. PEG and trach was being planned but on hold due to family wishes. Tolerating vent changes. Continue to wean vent as tolerated. Appreciate cabinet worker input. (2) Shock: Code(s): R57.9 - Shock, unspecified Status: Acute Assessment and Plan: Patient became hypotensive on 01/14 requiring Levophed. Hypotension felt related to sedation and hypovolemia. IV fluids given. BCx 01/10 negative; repeat BCx 01/22 negative as well. She has required Levophed off/on due to fluid status and/or infections etiology. UCx 01/22 growing Proteus and Enterococcus treated with Rocephin and Vanco. Was having recurrent fevers and also hypothermic. WBC only mildly elevated. Patient was re-cultured 01/29 and broad spectrum abx started. BCx 01/29 and UCx negative. Sputum Cx 02/03 pendings. Continue IV abx Day 7 (3) Pneumothorax on right: Onset Date: ~01/14/21 Code(s): J93.9 - Pneumothorax, unspecified Status: Acute Assessment and Plan: Patient with PTX on the right with CT in place. CXR today reviewed showing no right PTX. Chest tube management per cabinet worker. (4) Pneumomediastinum: Code(s): J98.2 - Interstitial emphysema Status: Acute Assessment and Plan: Patient had evidence of pneumomediastinum by CXR with SQ crepitus. Serial CXR showing that most of the pneumomediastinum has resolved. SQ emphysema no longer present. Monitor closely. Continue daily CXR. (5) Pneumonia due to COVID-19 virus: Code(s): U07.1 - COVID-19; J12.82 - Pneumonia due to coronavirus disease 2019 Status: Acute Assessment and Plan: Patient did not receive a COVID vaccination. She was exposed to an individual who was COVID positive. She did come in on hydroxychloroquine, zinc, vitamin-C and D from home. She began to have symptoms around 12/24/20. She was COVID positive (rapid) on 12/25/20 when in the ED. Returned to ED on 12/30 for worsening symptoms and was admitted. She has since completed Remdesivir, Dexamethasone and Baricitinib. Convalescent plasma given 01/04/21. Vit C,D, and zinc were ordered. Lasix IV given intermittently. Completed a course of Azithromycin as well. demanded that his be treated with Solu-Medrol, Vit C and Ivermectin. Explained that Ivermectin was not standard of care but we did proceed with the other treatment. She was treated with Pulmicort, Vit C/Zinc/Vit D. Solu-Medrol, vitamins and minerals have since been discontinued. Continue supportive care. (6) Acute respiratory acidosis: Code(s): E87.2 - Acidosis Status: Acute Assessment and Plan: pH was 7.16 and NaBicarb IV given 01/15. Allowing for permissive hypercapnia. Serum bicarb >40. pH normal today with pCO2 now 93 today. Vent adjustments per cabinet worker. Appreciate cabinet worker input. (7) UTI (urinary tract infection): Code(s): N39.0 - Urinary tract infection, site not specified Status: Acute Assessment and Plan: UCx 01/22 growing Proteus and enterococcus. Treatment as above. Repeat UCx 01/29 negative. (8) Transaminitis: Code(s): R74.01 - Elevation of levels of liver transaminase levels Status: Acute Assessment and Plan: Liver enzymes elevated on admission felt secondary to COVID. Hepatitis panel negative. RUQ US showing no acute findings. Levels anastasiya
--- NOTE | 2021-02-04 11:48 | PCDIET ---
ICU Rounding Note: Patient tolerating Vital 1.2 at 50mL/hr with 30mL water flush every 4 hours. Last recorded weight is 76.3kg which is stable. Bowel Motility: Last documented BM on 02/01/21 x 2. Labs Reviewed: WBC (10.1), RBC (2.70), Hgb (8.0), Hct (24.6), Glu (124), K (3.3), Alb (2.7), Oli Ca (9.04) Meds Noted: Propofol (rate of 15.69mL/hr provides 414kcal per day), Pulmicort, Primaxin, Pepcid, Fentanyl, Reglan, Versed, KCl, Florastor, Vancomycin, Magnesium Sulfate Additional Notes: Discussed hyponatremia with MD; monitoring. No skin breakdown reported. Following daily in ICU rounds. Assessing/reassessing every Tuesday/Tuesday.
[2021-02-04 12:21] LABS: Glucose Point of Care 116 mg/dl (65-105)
[2021-02-04 12:49] LABS: Alveolar/Arterial O2 Gradient 322.3 mmHg; Base Excess ABG 16.5 mEq/l (+/-2.0); Fractional Inspired Oxygen 65 %; HCO3 ABG 43.7 mEq/l (22.0-26.0); Oxygen Content ABG 12.1 %vol (16.0-22.0); Oxygen Saturation ABG 91.4 % (95.0-100.0); Oxyhemoglobin 90.8 % THb (90.0-100.0); PO2 ABG 63.7 mmHg (80.0-100.0); PO2 FiO2 Ratio Arterial Blood 0.98 %; Total Hemoglobin 9.4 g/dL (12.0-18.0); pH ABG 7.406 (7.350-7.450)
[2021-02-04 12:50] LABS: Modified Allen's Test Pass; PCO2 ABG 71.2 mmHg (35.0-45.0); Site Drawn RIGHT RADIAL
[2021-02-04 12:51] LABS: Arterial Blood Gas PEEP 8 cmH2O; Arterial Blood Gas Tidal Volume 360 ml; Arterial Blood Gas Vent Mode CMV; Arterial Blood Gas Ventilator rate 28 /MIN; Device VENTILATOR
[2021-02-04] MEDS: PROPOFOL IV EMULSION 100 ML 13.45 MG IV CONT ×2 (13:16→20:35)
[2021-02-04 16:28] LABS: Sodium Urine Random 93 meq/L
[2021-02-04 16:36] LABS: Creatinine Urine 15.3 mg/dL
[2021-02-04 17:32] LABS: Glucose Point of Care 132 mg/dl (65-105)
[2021-02-04] MEDS: LEVALBUTEROL NEB 1.25 MG/3 ML 0.63 MG INHALATION (20:20)
[2021-02-04] MEDS: IPRATROPIUM BR 0.02% INH SOLN 0.5 MG/2.5 ML VIAL INHALATION (20:20)
[2021-02-04] MEDS: MIDAZOLAM 100MG/NS 100ML(*CRX) 100 MG/100 ML BAG IV CONT (20:40)
[2021-02-05] VITALS (45 sets, daily range): BP systolic 73–157; BP diastolic 44–82; PULSE 98–132; RESP 25–40; TEMP 37.2–37.6; O2SAT 90–96
[2021-02-05 00:16] LABS: Glucose Point of Care 110 mg/dl (65-105)
[2021-02-05] MEDS: PROPOFOL IV EMULSION 100 ML 13.45 MG IV CONT ×3 (03:45→17:26)
[2021-02-05 05:39] LABS: Alveolar/Arterial O2 Gradient 387.1 mmHg; Base Excess ABG 18.8 mEq/l (+/-2.0); Carboxyhemoglobin 0.7 % THb (0-2.0); Fractional Inspired Oxygen 80 %; HCO3 ABG 49.3 mEq/l (22.0-26.0); Methemoglobin ABG 0.4 %THb (0-1.5); Oxygen Content ABG 17.3 %vol (16.0-22.0); Oxygen Saturation ABG 95.2 % (95.0-100.0); Oxyhemoglobin 94.5 % THb (90.0-100.0); PO2 ABG 85.7 mmHg (80.0-100.0); PO2 FiO2 Ratio Arterial Blood 1.07 %; Reduced Hemoglobin 4.4 %THb (0-5.0); pH ABG 7.342 (7.350-7.450)
[2021-02-05 05:40] LABS: Modified Allen's Test Pass; Site Drawn LEFT RADIAL
[2021-02-05 05:41] LABS: Arterial Blood Gas PEEP 8 cmH2O; Arterial Blood Gas Tidal Volume 360 ml; Arterial Blood Gas Vent Mode CMV; Arterial Blood Gas Ventilator rate 28 /MIN; Device VENTILATOR
[2021-02-05 05:42] LABS: Hematocrit 26.3 % (37.0-47.0); Hemoglobin 7.9 g/dL (12.0-15.0); Mean Corpuscular Hemoglobin 28.4 pg (26-34); Mean Corpuscular Volume 94.6 fl (80-100); Mean Platelet Volume 9.1 fl (7.4-10.4); Platelet Count Result 474 k/mm3 (150-375); Red Blood Count 2.78 M/mm3 (4.2-5.4); Red Cell Distribution Width 16.3 % (11.5-14.5); White Blood Count 11.2 K/mm3 (4.5-10.0)
[2021-02-05 06:01] LABS: Alanine Aminotransferase 39 U/L (4-35); Albumin Level 2.9 g/dL (3.5-5.1); Alkaline Phosphatase 92 U/L (38-126); Aspartate Amino Transferase 28 U/L (14-36); Bilirubin,Total 0.3 mg/dL (0.2-1.3); Blood Urea Nitrogen 7 mg/dL (7-17); Calcium 8.5 mg/dL (8.4-10.2); Carbon Dioxide > 40 mmol/L (22-30); Chloride 84 mmol/L (98-107); Estimated CRCL calculation 145 ml/min; Estimated Glomerular Filt Rate > 60; Glucose 110 mg/dL (65-110); Magnesium 1.9 mg/dL (1.6-2.3); Potassium 4.1 mmol/L (3.4-5.0); Sodium 134 mmol/L (137-145)
[2021-02-05] MEDS: CENTRAL LINE FLUSH 10 ML IV PUSH ×3 (07:00→20:48)
[2021-02-05 07:12] LABS: Glucose Point of Care 152 mg/dl (65-105)
[2021-02-05] MEDS: SACCHAROMYCES BOULARDII 250 MG CAPSULE PO ×2 (08:00→17:32)
[2021-02-05] MEDS: ENOXAPARIN 40 MG/0.4 ML SYRINGE SUB-Q (08:00)
[2021-02-05] MEDS: FAMOTIDINE 20 MG/2 ML VIAL IV PUSH ×2 (08:00→20:48)
[2021-02-05] MEDS: MINERAL OIL/WHITE PETROLATUM OINTMENT 1 APPLIC EACH EYE ×2 (08:01→20:48)
[2021-02-05] MEDS: BUDESONIDE RESPULE NEB 0.5 MG/2 ML AMP INHALATION ×2 (08:20→21:02)
[2021-02-05] MEDS: hetaSTARCH 6%/NACL 500 ML 250 ML IV CONT (09:05)
--- NOTE | 2021-02-05 09:51 | WPDINTPN ---
Progress Note: A&P Assessment and Plan (1) Acute respiratory failure with hypoxia: Code(s): J96.01 - Acute respiratory failure with hypoxia Status: Acute Assessment and Plan: Acute hypoxic respiratory failure secondary to COVID-19 pneumonia. Over the course she has developed increasing oxygen requirements, transferred to the ICU on 01/12/2021 -was on BiPAP 12/6 and 100%. Intubated 01/13 -02/04: ABG reviewed and showed worsening hypercarbia, made ventilator changes, increased I to E ratio, decreased respiratory rate and increased tidal volume. Patient also has elevated peak pressures which improved after I made no ventilator changes. Patient was also tried on pressure control ventilation without any change in her peak pressures -tolerate permissive hypercapnia. Repeat ABGs improved -currently PEEP 8 and 80% FiO2. Will continue to wean FiO2 as tolerated -02/05/2021 CXR: Diffuse pneumonia and or edema which is unchanged -patient remains on fentanyl, Versed and propofol infusion -continue bronchodilators and Pulmicort -01/23/2021, sputum cultures grew normal macario (2) Pneumonia due to COVID-19 virus: Code(s): U07.1 - COVID-19; J12.82 - Pneumonia due to coronavirus disease 2019 Status: Acute Assessment and Plan: Patient tested positive for COVID on 12/25/2020. Patient is unvaccinated -she is status post Remdesivir, dexamethasone -status post a course of azithromycin and ceftriaxone on admission - completed a course of Baricitinib for 14 days -also completed a long course of steroids and now off of Solu-Medrol given patient developed UTI and bacterial pneumonia -patient was on vitamin-C, vitamin-D and zinc for more than 2 weeks -at home patient was also taking hydroxychloroquine -upon admission to the ICU, patient's was demanding to start method of ivermectin, prednisolone, nitazoxanide, fluvoxamine, cyproheptadine, famotidine, discussed with the in details and explained to him that the is no appropriate and evidence behind usage of these medications in patients with COVID-19. -continue airborne, droplet, contact isolation precaution (3) Pneumomediastinum: Code(s): J98.2 - Interstitial emphysema Status: Acute Assessment and Plan: Pneumomediastinum seen on checks x-ray on 01/25/2021 which has improved since Continue to monitor at this time (4) Pneumothorax on right: Onset Date: ~01/14/21 Code(s): J93.9 - Pneumothorax, unspecified Status: Acute Assessment and Plan: Status post chest tube placement by General surgery Chest tube is on suction. No air leak at this time No pneumothorax on last chest x-ray (5) Sepsis: Code(s): A41.9 - Sepsis, unspecified organism Status: Acute Assessment and Plan: 01/22/2021: Urine cultures growing Enterococcus species and mid Proteus mirabilis (initiated ceftriaxone on 01/23/2020) 01/23/2021: Sputum cultures normal macario, initiated vancomycin on 01/23/202101/29 -repeat blood and urine cultures negative Continue vancomycin, imipenem, for sinusitis (initiated on 02/01/2021), will continue for total of 7 days She was given IV fluid and albumin bolus 01/29. Off vasopressors WBC close to normal (6) Shock: Code(s): R57.9 - Shock, unspecified Status: Acute Assessment and Plan: Off Levophed at this time Off hydrocortisone -01/24/2021: Bilateral lower extremity venous Dopplers negative for DVT (7) Tachycardia: Code(s): R00.0 - Tachycardia, unspecified Status: Acute Assessment and Plan: Improved Patient sinus tachycardia, could multifactorial, hypoxia, DVT, hypovolemia -01/24/2021: Venous Dopplers negative for bilateral lower extremity DVT bronchodilators have been changed to p.r.n. (8) DVT prophylaxis: Code(s): Z29.9 - Encounter for prophylactic measures, unspecified Status: Acute Assessment and Plan: Lovenox SQ (9) Elect
[2021-02-05] MEDS: ALTEPLASE 2 MG VIAL (CATHFLO) IV PUSH (10:47)
[2021-02-05] MEDS: ROCURONIUM BROMIDE 50 MG/5 ML VIAL IV PUSH (10:47)
[2021-02-05] MEDS: FENTANYL 2,500MCG/NS250ML(*CRX 2,500 MCG/250 ML BAG 17.5 MCG IV CONT (11:38)
--- NOTE | 2021-02-05 11:58 | PCDIET ---
ICU Rounding Note: Patient tolerating Vital 1.2 at 50mL/hr goal rate with 30mL water flush every 4 hours. Last recorded weight is 74.9kg which is down from last review. Bowel Motility: FMS in place for liquid stools. Labs Reviewed: WBC (11.2), RBC (2.78), Hgb (7.9), Hct (26.3), Glu (152), Cr (0.3), Na (134), Alb (2.9) Meds Noted: Primaxin, Atrovent, Xopenex, Pulmicort, Pepcid, Fentanyl, Hespan, Versed, Florastor, Vancomycin, Propofol (rate of 11.205mL/hr provides 295kcal per day) Additional Notes: No documented skin breakdown. Family meeting scheduled for tomorrow. Following daily in ICU rounds. Assessing/reassessing every Tuesday/Tuesday.
[2021-02-05 12:27] LABS: Glucose Point of Care 131 mg/dl (65-105)
--- NOTE | 2021-02-05 12:35 | PM.IMPN ---
Progress Note: A&P Assessment and Plan (1) Acute respiratory failure with hypoxia: Code(s): J96.01 - Acute respiratory failure with hypoxia Status: Acute Assessment and Plan: Patient with acute respiratory failure secondary to COVID pneumonia. CTA of the chest 12/30 showing no central pulmonary embolus identified (sensitivity limited by motion artifact) and patchy bilateral airspace opacities have pattern consistent with COVID-19 pneumonia. Oxygen requirement worsened requiring intubation on 01/13 despite aggressive medical treatment. She remains intubated and sedated. Proning patient as she tolerates. PEG and trach was being planned but on hold due to family wishes. Tolerating vent changes. Continue to wean vent as tolerated. Appreciate certified tumor registrar input. (2) Shock: Code(s): R57.9 - Shock, unspecified Status: Acute Assessment and Plan: Patient became hypotensive on 01/14 requiring Levophed. Hypotension felt related to sedation and hypovolemia. IV fluids given. BCx 01/10 negative; repeat BCx 01/22 negative as well. She has required Levophed off/on due to fluid status and/or infections etiology. UCx 01/22 growing Proteus and Enterococcus treated with Rocephin and Vanco. Was having recurrent fevers and also hypothermic. WBC only mildly elevated. Patient was re-cultured 01/29 and broad spectrum abx started. BCx 01/29 and UCx negative. Sputum Cx 02/03 Growing Klebsiella and Yeast. Continue IV abx Day 8. Follow up on sensitivities. (3) Pneumothorax on right: Onset Date: ~01/14/21 Code(s): J93.9 - Pneumothorax, unspecified Status: Acute Assessment and Plan: Patient with PTX on the right with CT in place. CXR today reviewed showing no right PTX. Chest tube management per certified tumor registrar. (4) Pneumomediastinum: Code(s): J98.2 - Interstitial emphysema Status: Acute Assessment and Plan: Patient had evidence of pneumomediastinum by CXR with SQ crepitus. Serial CXR showing that most of the pneumomediastinum has resolved. SQ emphysema no longer present. Monitor closely. Continue daily CXR. (5) Pneumonia due to COVID-19 virus: Code(s): U07.1 - COVID-19; J12.82 - Pneumonia due to coronavirus disease 2019 Status: Acute Assessment and Plan: Patient did not receive a COVID vaccination. She was exposed to an individual who was COVID positive. She did come in on hydroxychloroquine, zinc, vitamin-C and D from home. She began to have symptoms around 12/24/20. She was COVID positive (rapid) on 12/25/20 when in the ED. Returned to ED on 12/30 for worsening symptoms and was admitted. She has since completed Remdesivir, Dexamethasone and Baricitinib. Convalescent plasma given 01/04/21. Vit C,D, and zinc were ordered. Lasix IV given intermittently. Completed a course of Azithromycin as well. demanded that his be treated with Solu-Medrol, Vit C and Ivermectin. Explained that Ivermectin was not standard of care but we did proceed with the other treatment. She was treated with Pulmicort, Vit C/Zinc/Vit D. Solu-Medrol, vitamins and minerals have since been discontinued. Continue supportive care. (6) Acute respiratory acidosis: Code(s): E87.2 - Acidosis Status: Acute Assessment and Plan: pH was 7.16 and NaBicarb IV given 01/15. Allowing for permissive hypercapnia. Serum bicarb >40. pH noted with pCO2 still at 93 today. Vent adjustments per certified tumor registrar. Appreciate certified tumor registrar input. (7) UTI (urinary tract infection): Code(s): N39.0 - Urinary tract infection, site not specified Status: Acute Assessment and Plan: UCx 01/22 growing Proteus and enterococcus. Treatment as above. Repeat UCx 01/29 negative. (8) Transaminitis: Code(s): R74.01 - Elevation of levels of liver transaminase levels Status: Acute Assessment and Plan: Liver enzymes elevated on admission felt secondary to COVID. Hepatitis panel ne
[2021-02-05 14:26] LABS: Fractional Inspired Oxygen 70 %; HCO3 ABG 49.3 mEq/l (22.0-26.0); Oxygen Content ABG 9.5 %vol (16.0-22.0); Oxygen Saturation ABG 89.3 % (95.0-100.0); Oxyhemoglobin 89.1 % THb (90.0-100.0); PO2 ABG 59.6 mmHg (80.0-100.0); PO2 FiO2 Ratio Arterial Blood 0.85 %; pH ABG 7.405 (7.350-7.450)
[2021-02-05 14:29] LABS: PCO2 ABG 80.5 mmHg (35.0-45.0); Total Hemoglobin 7.5 g/dL (12.0-18.0)
[2021-02-05 14:30] LABS: Arterial Blood Gas PEEP 8 cmH2O; Arterial Blood Gas Vent Mode CMV; Arterial Blood Gas Ventilator rate 34 /MIN; Device VENTILATOR; Modified Allen's Test Pass; Site Drawn RIGHT RADIAL
[2021-02-05 14:31] LABS: Arterial Blood Gas Tidal Volume 340 ml
[2021-02-05] MEDS: MIDAZOLAM 100MG/NS 100ML(*CRX) 100 MG/100 ML BAG 7 MG IV CONT (17:24)
[2021-02-05 18:08] LABS: Glucose Point of Care 108 mg/dl (65-105)
[2021-02-05] MEDS: PROPOFOL IV EMULSION 100 ML 15.69 MG IV CONT (23:44)
[2021-02-06] VITALS (51 sets, daily range): BP systolic 82–159; BP diastolic 31–84; PULSE 100–150; RESP 34–35; TEMP 36.5–37.4; O2SAT 90–98
[2021-02-06 00:14] LABS: Glucose Point of Care 124 mg/dl (65-105)
[2021-02-06] MEDS: FENTANYL 2,500MCG/NS250ML(*CRX 2,500 MCG/250 ML BAG 17.5 MCG IV CONT ×2 (03:00→17:27)
[2021-02-06 05:11] LABS: Alveolar/Arterial O2 Gradient 440.9 mmHg; Base Excess ABG 18.5 mEq/l (+/-2.0); Carboxyhemoglobin 0.4 % THb (0-2.0); Fractional Inspired Oxygen 85 %; HCO3 ABG 47.1 mEq/l (22.0-26.0); Methemoglobin ABG 0.3 %THb (0-1.5); Oxygen Content ABG 11.7 %vol (16.0-22.0); Oxyhemoglobin 92.6 % THb (90.0-100.0); PO2 ABG 73.9 mmHg (80.0-100.0); PO2 FiO2 Ratio Arterial Blood 0.87 %; Reduced Hemoglobin 6.7 %THb (0-5.0); Total Hemoglobin 8.9 g/dL (12.0-18.0); pH ABG 7.346 (7.350-7.450)
[2021-02-06 05:14] LABS: Device VENTILATOR; Modified Allen's Test Pass; Site Drawn RIGHT RADIAL
[2021-02-06 05:15] LABS: Arterial Blood Gas PEEP 8 cmH2O; Arterial Blood Gas Tidal Volume 340 ml; Arterial Blood Gas Vent Mode CMV; Arterial Blood Gas Ventilator rate 34 /MIN
[2021-02-06 05:30] LABS: Hematocrit 21.5 % (37.0-47.0); Mean Corpuscular HGB Conc 30.2 g/dl (32-36); Mean Corpuscular Hemoglobin 28.8 pg (26-34); Mean Corpuscular Volume 95.1 fl (80-100); Mean Platelet Volume 9.4 fl (7.4-10.4); Platelet Count Result 402 k/mm3 (150-375); Red Blood Count 2.26 M/mm3 (4.2-5.4); Red Cell Distribution Width 16.2 % (11.5-14.5); White Blood Count 8.6 K/mm3 (4.5-10.0)
[2021-02-06 06:05] LABS: Hemoglobin 6.5 g/dL (12.0-15.0)
[2021-02-06 06:18] LABS: Alanine Aminotransferase 39 U/L (4-35); Albumin Level 2.4 g/dL (3.5-5.1); Alkaline Phosphatase 87 U/L (38-126); Aspartate Amino Transferase 33 U/L (14-36); Bilirubin,Total < 0.1 mg/dL (0.2-1.3); Blood Urea Nitrogen 11 mg/dL (7-17); Calcium 8.7 mg/dL (8.4-10.2); Carbon Dioxide > 40 mmol/L (22-30); Chloride 85 mmol/L (98-107); Estimated CRCL calculation 200 ml/min; Estimated Glomerular Filt Rate > 60; Glucose 119 mg/dL (65-110); Magnesium 1.8 mg/dL (1.6-2.3); Potassium 3.4 mmol/L (3.4-5.0); Sodium 132 mmol/L (137-145)
[2021-02-06] MEDS: PROPOFOL IV EMULSION 100 ML 15.69 MG IV CONT ×3 (06:58→19:49)
[2021-02-06] MEDS: MIDAZOLAM 100MG/NS 100ML(*CRX) 100 MG/100 ML BAG 7 MG IV CONT ×2 (07:01→19:50)
[2021-02-06] MEDS: CENTRAL LINE FLUSH 10 ML IV PUSH ×3 (07:02→19:53)
[2021-02-06] MEDS: BUDESONIDE RESPULE NEB 0.5 MG/2 ML AMP INHALATION (08:27)
[2021-02-06] MEDS: PANTOPRAZOLE SODIUM IV 40 MG VIAL IV PUSH ×2 (08:58→19:53)
[2021-02-06] MEDS: SACCHAROMYCES BOULARDII 250 MG CAPSULE PO ×2 (08:58→17:33)
[2021-02-06] MEDS: MINERAL OIL/WHITE PETROLATUM OINTMENT 1 APPLIC EACH EYE ×2 (08:58→19:52)
--- NOTE | 2021-02-06 09:55 | WPDINTPN ---
Progress Note: A&P Assessment and Plan (1) Anemia: Code(s): D64.9 - Anemia, unspecified Status: Acute Assessment and Plan: Patient dropped her hemoglobin to 6.5 this morning on 02/06, 1 unit packed RBCs will be transfused -iron panel has been ordered -check stool for Hemoccult (2) Acute respiratory failure with hypoxia: Code(s): J96.01 - Acute respiratory failure with hypoxia Status: Acute Assessment and Plan: Acute hypoxic respiratory failure secondary to COVID-19 pneumonia. Over the course she has developed increasing oxygen requirements, transferred to the ICU on 01/12/2021 -was on BiPAP 03/30 and 100%. Intubated 01/13 -02/04: ABG reviewed and showed worsening hypercarbia, made ventilator changes, increased I to E ratio, decreased respiratory rate and increased tidal volume. Patient also has elevated peak pressures which improved after I made no ventilator changes. Patient was also tried on pressure control ventilation without any change in her peak pressures -tolerate permissive hypercapnia. Repeat ABGs improved -currently PEEP 8 and 85% FiO2. Will continue to wean FiO2 as tolerated -02/06/2021 CXR: There are persistent diffuse bilateral pulmonary infiltrates with air bronchograms in the lower lobes in particular, especially on the left, unchanged since 02/05/2021. -patient remains on fentanyl, Versed and propofol infusion -continue bronchodilators and Pulmicort -01/23/2021, sputum cultures grew normal macario 02/03/2021: Sputum cultures growing Klebsiella pneumoniae, forman sensitive (3) Pneumonia due to COVID-19 virus: Code(s): U07.1 - COVID-19; J12.82 - Pneumonia due to coronavirus disease 2019 Status: Acute Assessment and Plan: Patient tested positive for COVID on 12/25/2020. Patient is unvaccinated -she is status post Remdesivir, dexamethasone -status post a course of azithromycin and ceftriaxone on admission - completed a course of Baricitinib for 14 days -also completed a long course of steroids and now off of Solu-Medrol given patient developed UTI and bacterial pneumonia -patient was on vitamin-C, vitamin-D and zinc for more than 2 weeks -at home patient was also taking hydroxychloroquine -upon admission to the ICU, patient's was demanding to start method of ivermectin, prednisolone, nitazoxanide, fluvoxamine, cyproheptadine, famotidine, discussed with the in details and explained to him that the is no appropriate and evidence behind usage of these medications in patients with COVID-19. -continue airborne, droplet, contact isolation precaution (4) Pneumomediastinum: Code(s): J98.2 - Interstitial emphysema Status: Acute Assessment and Plan: Pneumomediastinum seen on checks x-ray on 01/25/2021 which has improved since Continue to monitor at this time (5) Pneumothorax on right: Onset Date: ~01/14/21 Code(s): J93.9 - Pneumothorax, unspecified Status: Acute Assessment and Plan: Status post chest tube placement by General surgery Chest tube is on suction. No air leak at this time No pneumothorax on last chest x-ray. Discussed with surgery (6) Sepsis: Code(s): A41.9 - Sepsis, unspecified organism Status: Acute Assessment and Plan: 01/22/2021: Urine cultures growing Enterococcus species and mid Proteus mirabilis (initiated ceftriaxone on 01/23/2020) 01/23/2021: Sputum cultures normal macario, initiated vancomycin on 01/23/202101/29 -repeat blood and urine cultures negative Continue vancomycin, imipenem, for sinusitis (initiated on 02/01/2021), will continue for total of 7 days She was given IV fluid and albumin bolus 01/29. Off vasopressors WBC close to normal (7) Shock: Code(s): R57.9 - Shock, unspecified Status: Acute Assessment and Plan: Off Levophed at this time Off hydrocortisone -01/24/2021: Bilateral lower extremity venous Dopplers negative for DVT -02/06/2021:
--- NOTE | 2021-02-06 10:59 | PCDIET ---
Nutrition Follow-Up Complete: Nutrition Diagnosis: Suboptimal oral intake related to COVID as evidenced by average intake of 65% of recorded meals over last week with inability to eat breakfast today. Nutrition Goal: Patient to meet estimated nutritional needs. Goal met. Patient tolerating Vital 1.2 at 50mL/hr with 30mL water flush every 4 hours. Plan for family meeting today. Last recorded weight is 78.5 kg which is increased from last review. Bowel Motility: 100mL documented 02/05/21 in [facility]. Labs Reviewed: RBC (2.26), Hgb (6.5), Hct (21.5), Glu (119), Cr (0.2), Na (132), Alb (2.4) Meds Noted: Pulmicort, Fentanyl, Primaxin, Versed, Levophed, Protonix, KCl, Florastor, Vancomycin, Propofol (rate of 15.69mL/hr provides 414kcal per day) Additional Notes: No skin breakdown reported. Plan for 1u RBC transfusion today. Will continue to monitor with same goal. Nutrition Monitoring and Evaluation: Follow up every Tuesday/Tuesday.
[2021-02-06] MEDS: NOREPINEPHRINE 8 MG/D5W 250 ML 8 MG/250 ML BAG 9.38 MG IV CONT (11:01)
--- NOTE | 2021-02-06 11:49 | PM.IMPN ---
Progress Note: A&P Assessment and Plan (1) Acute respiratory failure with hypoxia: Code(s): J96.01 - Acute respiratory failure with hypoxia Status: Acute Assessment and Plan: Patient with acute respiratory failure secondary to COVID pneumonia. CTA of the chest 12/30 showing no central pulmonary embolus identified (sensitivity limited by motion artifact) and patchy bilateral airspace opacities have pattern consistent with COVID-19 pneumonia. Oxygen requirement worsened requiring intubation on 01/13 despite aggressive medical treatment. She remains intubated and sedated. Proning patient as she tolerates. PEG and trach was being planned but on hold due to family wishes. Tolerating vent changes. Continue to wean vent as tolerated. Appreciate as400 developer input. (2) Anemia: Code(s): D64.9 - Anemia, unspecified Status: Acute Assessment and Plan: Hgb normal on admission but has trended down slowly to the 7-8 range since 01/23/21 but stable. Today, Hgb 6.5. No evidence of acute blood loss. One unit ordered of PRBCs. Could explain her HoTN. Follow HH closely and transfuse until stable. Changed to Protonix. (3) Shock: Code(s): R57.9 - Shock, unspecified Status: Acute Assessment and Plan: Patient became hypotensive on 01/14 requiring Levophed. Hypotension felt related to sedation and hypovolemia. IV fluids given. BCx 01/10 negative. Able to wean off Levophed within 1 aday but had recurrent HoTN on 01/20 requiring levophed again. Repeat BCx 01/22 negative as well. She has required Levophed off/on due to fluid status and/or infections etiology and last used Levophed 02/02. UCx 01/22 growing Proteus and Enterococcus treated with Rocephin and Vanco. Was having recurrent fevers and also hypothermic. WBC only mildly elevated. Patient was re-cultured 01/29 and broad spectrum abx started. BCx 01/29 and UCx negative. Sputum Cx 02/03 Growing Klebsiella and Yeast. 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 BP still soft related to the anemia so Levophed resumed today. Continue IV abx Day 9. Follow up on sensitivities. Cover for yeast? (4) Pneumothorax on right: Onset Date: ~01/14/21 Code(s): J93.9 - Pneumothorax, unspecified Status: Acute Assessment and Plan: Patient with PTX on the right with CT in place. CXR today reviewed showing no right PTX. Chest tube management per as400 developer. Continue daily CXR. Remove CT? (5) Pneumomediastinum: Code(s): J98.2 - Interstitial emphysema Status: Acute Assessment and Plan: Patient had evidence of pneumomediastinum by CXR with SQ crepitus. Serial CXR showing that most of the pneumomediastinum has resolved. SQ emphysema no longer present. Monitor closely. Continue daily CXR. (6) Pneumonia due to COVID-19 virus: Code(s): U07.1 - COVID-19; J12.82 - Pneumonia due to coronavirus disease 2019 Status: Acute Assessment and Plan: Patient did not receive a COVID vaccination. She was exposed to an individual who was COVID positive. She did come in on hydroxychloroquine, zinc, vitamin-C and D from home. She began to have symptoms around 12/24/20. She was COVID positive (rapid) on 12/25/20 when in the ED. Returned to ED on 12/30 for worsening symptoms and was admitted. She has since completed Remdesivir, Dexamethasone and Baricitinib. Convalescent plasma given 01/04/21. Vit C,D, and zinc were ordered. Lasix IV given intermittently. Completed a course of Azithromycin as well. demanded that his be treated with Solu-Medrol, Vit C and Ivermectin. Explained that Ivermectin was not standard of care but we did proceed with the other treatment. She was treated with Pulmicort, Vit C/Zinc/Vit D. Solu-Medrol, vitamins and minerals have since been discontinued. Continue supportive care. (7) Acute respiratory acidosis: Code(s): E87.2 - Acidosis Status: Acute Assessment and Plan: pH was 7.16 and NaBicarb IV giv
[2021-02-06 12:56] LABS: Glucose Point of Care 111 mg/dl (65-105)
[2021-02-06] MEDS: methylPREDNISolone SOD SUCC 125 MG VIAL IV PUSH (13:46)
[2021-02-06] MEDS: ROCURONIUM BROMIDE 50 MG/5 ML VIAL IV PUSH (13:46)
[2021-02-06 13:53] LABS: Iron 91 ug/dL (37-170)
[2021-02-06 14:02] LABS: Percent Iron Saturation 43 % (20-50)
[2021-02-06 15:19] LABS: Hemoglobin 9.2 g/dL (12.0-15.0)
[2021-02-06] MEDS: CISATRACURIUM BESYLATE 200 MG in DEXTROSE 5% 80 ML 7.07 ML IV CONT (15:30)
[2021-02-06 17:00] LABS: IFOB Positive Control Positive; Immunochemical Fecal Occult Bl Negative (N)
[2021-02-06] MEDS: INSULIN ASPART (*BKC) 100 UNITS/ML SUB-Q (17:32)
[2021-02-06 18:19] LABS: Glucose Point of Care 219 mg/dl (65-105)
[2021-02-06] MEDS: CISATRACURIUM BESYLATE 200 MG in DEXTROSE 5% 80 ML 12.95 ML IV CONT (23:25)
[2021-02-07] VITALS (65 sets, daily range): BP systolic 91–149; BP diastolic 47–88; PULSE 101–144; RESP 32–41; TEMP 36.1–37.3; O2SAT 90–98
[2021-02-07] MEDS: PROPOFOL IV EMULSION 100 ML 15.69 MG IV CONT ×3 (01:28→15:15)
[2021-02-07 02:04] LABS: Glucose Point of Care 157 mg/dl (65-105)
[2021-02-07 04:58] LABS: Alveolar/Arterial O2 Gradient 417.5 mmHg; Base Excess ABG 19.4 mEq/l (+/-2.0); Carboxyhemoglobin 0.5 % THb (0-2.0); Fractional Inspired Oxygen 85 %; HCO3 ABG 47.5 mEq/l (22.0-26.0); Methemoglobin ABG 0.5 %THb (0-1.5); Oxygen Content ABG 11.5 %vol (16.0-22.0); Oxygen Saturation ABG 96.8 % (95.0-100.0); Oxyhemoglobin 95.7 % THb (90.0-100.0); PO2 FiO2 Ratio Arterial Blood 1.16 %; Reduced Hemoglobin 3.3 %THb (0-5.0); Total Hemoglobin 8.4 g/dL (12.0-18.0); pH ABG 7.359 (7.350-7.450)
[2021-02-07 05:00] LABS: PCO2 ABG 86.3 mmHg (35.0-45.0)
[2021-02-07 05:01] LABS: Arterial Blood Gas Vent Mode CMV; Arterial Blood Gas Ventilator rate 34 /MIN; Device VENTILATOR; Modified Allen's Test Pass; Site Drawn RIGHT RADIAL
[2021-02-07 05:02] LABS: Arterial Blood Gas PEEP 8 cmH2O; Arterial Blood Gas Tidal Volume 340 ml
[2021-02-07] MEDS: CENTRAL LINE FLUSH 10 ML IV PUSH ×3 (05:27→20:13)
[2021-02-07] MEDS: CISATRACURIUM BESYLATE 200 MG in DEXTROSE 5% 80 ML 18.84 ML IV CONT ×2 (05:34→10:45)
[2021-02-07 05:49] LABS: Basophils Percent Auto 0.2 % (0.2-1.2); Eosinophils Percent Auto 0.2 % (0-4.4); Hematocrit 25.6 % (37.0-47.0); Hemoglobin 7.9 g/dL (12.0-15.0); Immature Granulocyte Absolute 0.15 K/mm3 (0.00-0.031); Immature Granulocyte Percent A 1.7 % (0-0.5); Lymphocytes Absolute Auto 0.82 K/mm3 (0.9-3.2); Lymphocytes Percent Auto 9.4 % (18.3-44.2); Mean Corpuscular HGB Conc 30.9 g/dl (32-36); Mean Corpuscular Hemoglobin 28.8 pg (26-34); Mean Corpuscular Volume 93.4 fl (80-100); Mean Platelet Volume 9.2 fl (7.4-10.4); Monocytes Absolute Auto 0.7 K/mm3 (0.1-0.6); Monocytes Percent Auto 8.2 % (2.6-8.5); Neutrophils Percent Auto 80.3 % (45.5-73.1); Platelet Count Result 402 k/mm3 (150-375); Red Blood Count 2.74 M/mm3 (4.2-5.4); Red Cell Distribution Width 17.2 % (11.5-14.5); White Blood Count 8.7 K/mm3 (4.5-10.0)
[2021-02-07 06:05] LABS: Alanine Aminotransferase 63 U/L (4-35); Albumin Level 2.5 g/dL (3.5-5.1); Alkaline Phosphatase 93 U/L (38-126); Aspartate Amino Transferase 45 U/L (14-36); Bilirubin,Total 0.2 mg/dL (0.2-1.3); Blood Urea Nitrogen 15 mg/dL (7-17); Calcium 8.8 mg/dL (8.4-10.2); Carbon Dioxide > 40 mmol/L (22-30); Chloride 85 mmol/L (98-107); Estimated CRCL calculation 153 ml/min; Estimated Glomerular Filt Rate > 60; Glucose 153 mg/dL (65-110); Magnesium 1.7 mg/dL (1.6-2.3); Phosphorus 3.8 mg/dL (2.5-4.5); Potassium 4.6 mmol/L (3.4-5.0); Sodium 134 mmol/L (137-145)
[2021-02-07] MEDS: BUDESONIDE RESPULE NEB 0.5 MG/2 ML AMP INHALATION ×2 (08:52→20:38)
[2021-02-07] MEDS: SACCHAROMYCES BOULARDII 250 MG CAPSULE PO ×2 (09:12→16:09)
[2021-02-07] MEDS: PANTOPRAZOLE SODIUM IV 40 MG VIAL IV PUSH ×2 (09:12→20:12)
[2021-02-07] MEDS: MINERAL OIL/WHITE PETROLATUM OINTMENT 1 APPLIC EACH EYE ×2 (09:12→20:12)
[2021-02-07] MEDS: FENTANYL 2,500MCG/NS250ML(*CRX 2,500 MCG/250 ML BAG 17.5 MCG IV CONT (09:21)
[2021-02-07] MEDS: MIDAZOLAM 100MG/NS 100ML(*CRX) 100 MG/100 ML BAG 7 MG IV CONT (09:34)
--- NOTE | 2021-02-07 11:13 | WPDINTPN ---
Progress Note: A&P Assessment and Plan (1) Tongue swelling: Code(s): R22.0 - Localized swelling, mass and lump, head Status: Acute Assessment and Plan: Patient's tongue is swollen and protruding could be related to allergic reaction -patient started on Solu-Medrol, Benadryl, famotidine for 2 days -continue monitor (2) Anemia: Code(s): D64.9 - Anemia, unspecified Status: Acute Assessment and Plan: Patient dropped her hemoglobin to 6.5 this morning on 02/06, 1 unit packed RBCs will be transfused -iron panel within normal limits on 02/06/2021 -stool for occult blood was negative on 02/06/2021 -will check haptoglobin and LDH levels (3) Acute respiratory failure with hypoxia: Code(s): J96.01 - Acute respiratory failure with hypoxia Status: Acute Assessment and Plan: Acute hypoxic respiratory failure secondary to COVID-19 pneumonia. Over the course she has developed increasing oxygen requirements, transferred to the ICU on 01/12/2021 -was on BiPAP / and 100%. Intubated 01/13 -02/04: ABG reviewed and showed worsening hypercarbia, made ventilator changes, increased I to E ratio, decreased respiratory rate and increased tidal volume. Patient also has elevated peak pressures which improved after I made no ventilator changes. Patient was also tried on pressure control ventilation without any change in her peak pressures -tolerate permissive hypercapnia. Repeat ABGs improved -currently PEEP 8 and 85% FiO2. Will continue to wean FiO2 as tolerated -02/06/2021 CXR: There are persistent diffuse bilateral pulmonary infiltrates with air bronchograms in the lower lobes in particular, especially on the left, unchanged since 02/05/2021. -02/07/2021: Peak pressures remain elevated between 52 and 58, despite being sedated with fentanyl, Versed, propofol infusion and on Nimbex for neuromuscular blockade. Patient switched to PCV mode of ventilation, decrease PEEP to 5, trying to mass minute ventilation and trying to keep the peak pressures under 50. -continue bronchodilators and Pulmicort -01/23/2021, sputum cultures grew normal macario 02/03/2021: Sputum cultures growing Klebsiella pneumoniae, forman sensitive, on imipenem, started on 01/29/2021. (4) Pneumonia due to COVID-19 virus: Code(s): U07.1 - COVID-19; J12.82 - Pneumonia due to coronavirus disease 2019 Status: Acute Assessment and Plan: Patient tested positive for COVID on 12/25/2020. Patient is unvaccinated -she is status post Remdesivir, dexamethasone -status post a course of azithromycin and ceftriaxone on admission - completed a course of Baricitinib for 14 days -also completed a long course of steroids and now off of Solu-Medrol given patient developed UTI and bacterial pneumonia -patient was on vitamin-C, vitamin-D and zinc for more than 2 weeks -at home patient was also taking hydroxychloroquine -upon admission to the ICU, patient's was demanding to start method of ivermectin, prednisolone, nitazoxanide, fluvoxamine, cyproheptadine, famotidine, discussed with the in details and explained to him that the is no appropriate and evidence behind usage of these medications in patients with COVID-19. -continue airborne, droplet, contact isolation precaution (5) Pneumomediastinum: Code(s): J98.2 - Interstitial emphysema Status: Acute Assessment and Plan: Pneumomediastinum seen on checks x-ray on 01/25/2021 which has improved since Continue to monitor at this time (6) Pneumothorax on right: Onset Date: ~01/14/21 Code(s): J93.9 - Pneumothorax, unspecified Status: Acute Assessment and Plan: Status post chest tube placement by General surgery Chest tube is on suction. No air leak at this time No pneumothorax on last chest x-ray. Discussed with surgery (7) Sepsis: Code(s): A41.9 - Sepsis, unspecified organism Status: Acute Assessment and Plan:
[2021-02-07] MEDS: IPRATROPIUM BR 0.02% INH SOLN 0.5 MG/2.5 ML VIAL INHALATION ×3 (11:18→20:38)
[2021-02-07] MEDS: methylPREDNISolone SOD SUCC 125 MG VIAL 60 MG IV PUSH ×2 (12:47→17:07)
[2021-02-07] MEDS: diphenhydrAMINE HCl INJ 50 MG/ML VIAL IV PUSH ×3 (12:47→22:12)
[2021-02-07] MEDS: FUROSEMIDE INJ 40 MG/4 ML VIAL 20 MG IV PUSH ×2 (12:47→22:12)
[2021-02-07] MEDS: METOPROLOL TARTRATE INJ 5 MG/5 ML VIAL IV PUSH (13:31)
[2021-02-07 13:41] LABS: Glucose Point of Care 110 mg/dl (65-105)
[2021-02-07 14:42] LABS: Lactate Dehydrogenase 716 U/L (313-618)
[2021-02-07] MEDS: ROCURONIUM BROMIDE 50 MG/5 ML VIAL IV PUSH ×3 (15:07→19:26)
[2021-02-07] MEDS: CISATRACURIUM BESYLATE 200 MG in DEXTROSE 5% 80 ML 23.55 ML IV CONT ×3 (15:24→23:10)
--- NOTE | 2021-02-07 15:34 | PC.NURSE ---
Called patient spouse, Richard, to give update regarding increased oxygenation requirements. Advised that patient remains tachycardic, and has had a decrease in body temperature as well. Richard acknowledged understanding, and I advised that I would keep him informed of any additional changes in the patients condition. Will continue to monitor patient closely.
[2021-02-07 17:32] LABS: Glucose Point of Care 189 mg/dl (65-105)
[2021-02-07] MEDS: PROPOFOL IV EMULSION 100 ML 17.93 MG IV CONT (19:30)
--- NOTE | 2021-02-07 19:44 | PC.NURSE ---
Called patient to update him on patient respiratory status - patient oxygen saturation decreased to 84%, while fio2 remains at 100 %. At the time of the phone call, patient's saturation was 90%. Patient's , Richard, stated that it seems suspicious that the patients oxygenation needs have increased after he declared his intent to pursue legal action and that it seems someone has slipped her a cailin.
[2021-02-07] MEDS: MIDAZOLAM 100MG/NS 100ML(*CRX) 100 MG/100 ML BAG 9 MG IV CONT (20:08)
[2021-02-07] MEDS: FENTANYL 2,500MCG/NS250ML(*CRX 2,500 MCG/250 ML BAG 20 MCG IV CONT (20:09)
[2021-02-07] MEDS: FAMOTIDINE 20 MG/2 ML VIAL IV PUSH (20:12)
[2021-02-08] VITALS (57 sets, daily range): BP systolic 102–164; BP diastolic 62–95; PULSE 75–131; RESP 22–39; TEMP 35.6–37.2; O2SAT 76–100
[2021-02-08] MEDS: methylPREDNISolone SOD SUCC 125 MG VIAL 60 MG IV PUSH ×4 (00:05→17:13)
[2021-02-08 01:21] LABS: Glucose Point of Care 160 mg/dl (65-105)
[2021-02-08] MEDS: PROPOFOL IV EMULSION 100 ML 17.93 MG IV CONT ×5 (01:23→21:31)
[2021-02-08] MEDS: IPRATROPIUM BR 0.02% INH SOLN 0.5 MG/2.5 ML VIAL INHALATION ×3 (02:00→13:52)
[2021-02-08] MEDS: CISATRACURIUM BESYLATE 200 MG in DEXTROSE 5% 80 ML 23.55 ML IV CONT ×2 (03:05→06:25)
[2021-02-08 05:24] LABS: Alveolar/Arterial O2 Gradient 466.4 mmHg; Base Excess ABG 19.3 mEq/l (+/-2.0); Carboxyhemoglobin 0.5 % THb (0-2.0); Fractional Inspired Oxygen 80 %; Methemoglobin ABG 0.3 %THb (0-1.5); Oxygen Content ABG 13.3 %vol (16.0-22.0); Oxyhemoglobin 83.7 % THb (90.0-100.0); PCO2 ABG 57.1 mmHg (35.0-45.0); PO2 FiO2 Ratio Arterial Blood 0.55 %; Reduced Hemoglobin 15.5 %THb (0-5.0); Total Hemoglobin 11.3 g/dL (12.0-18.0)
[2021-02-08 05:26] LABS: PO2 ABG 44.1 mmHg (80.0-100.0); pH ABG 7.514 (7.350-7.450)
[2021-02-08 05:27] LABS: Arterial Blood Gas Ventilator rate 32 /MIN; Device VENTILATOR; Modified Allen's Test Unable to perform; Oxygen Saturation ABG 83.2 % (95.0-100.0); Site Drawn RIGHT RADIAL
[2021-02-08 05:28] LABS: Arterial Blood Gas PEEP 8 cmH2O; Arterial Blood Gas Vent Mode PRESSURE CONTROL; Peak Inspiratory Pressure 44 cmH2O
[2021-02-08] MEDS: CENTRAL LINE FLUSH 10 ML IV PUSH ×3 (05:29→19:46)
[2021-02-08] MEDS: diphenhydrAMINE HCl INJ 50 MG/ML VIAL IV PUSH ×4 (05:31→22:08)
[2021-02-08 05:34] LABS: Hematocrit 26.1 % (37.0-47.0); Hemoglobin 8.3 g/dL (12.0-15.0); Mean Corpuscular HGB Conc 31.8 g/dl (32-36); Mean Corpuscular Hemoglobin 28.5 pg (26-34); Mean Corpuscular Volume 89.7 fl (80-100); Mean Platelet Volume 9.3 fl (7.4-10.4); Platelet Count Result 490 k/mm3 (150-375); Red Blood Count 2.91 M/mm3 (4.2-5.4); Red Cell Distribution Width 16.3 % (11.5-14.5); White Blood Count 11.8 K/mm3 (4.5-10.0)
[2021-02-08 05:45] LABS: Sodium 133 mmol/L (137-145)
[2021-02-08 05:46] LABS: Alanine Aminotransferase 126 U/L (4-35); Albumin Level 2.8 g/dL (3.5-5.1); Alkaline Phosphatase 130 U/L (38-126); Aspartate Amino Transferase 66 U/L (14-36); Bilirubin,Total < 0.1 mg/dL (0.2-1.3); Blood Urea Nitrogen 19 mg/dL (7-17); Calcium 8.3 mg/dL (8.4-10.2); Carbon Dioxide > 40 mmol/L (22-30); Chloride 83 mmol/L (98-107); Estimated CRCL calculation 208 ml/min; Estimated Glomerular Filt Rate > 60; Glucose 147 mg/dL (65-110); Magnesium 1.6 mg/dL (1.6-2.3); Phosphorus 3.2 mg/dL (2.5-4.5); Potassium 3.3 mmol/L (3.4-5.0)
[2021-02-08] MEDS: FAMOTIDINE 20 MG/2 ML VIAL IV PUSH (08:00)
[2021-02-08] MEDS: SACCHAROMYCES BOULARDII 250 MG CAPSULE PO ×2 (08:01→17:13)
[2021-02-08] MEDS: PANTOPRAZOLE SODIUM IV 40 MG VIAL IV PUSH ×2 (08:01→19:50)
[2021-02-08] MEDS: FENTANYL 2,500MCG/NS250ML(*CRX 2,500 MCG/250 ML BAG 20 MCG IV CONT ×2 (08:01→19:42)
[2021-02-08] MEDS: MINERAL OIL/WHITE PETROLATUM OINTMENT 1 APPLIC EACH EYE ×2 (08:01→19:50)
[2021-02-08] MEDS: MIDAZOLAM 100MG/NS 100ML(*CRX) 100 MG/100 ML BAG 9 MG IV CONT ×2 (08:03→19:41)
[2021-02-08] MEDS: ROCURONIUM BROMIDE 50 MG/5 ML VIAL IV PUSH (08:25)
[2021-02-08] MEDS: BUDESONIDE RESPULE NEB 0.5 MG/2 ML AMP INHALATION (08:29)
[2021-02-08 08:48] LABS: Alveolar/Arterial O2 Gradient 543.7 mmHg; Base Excess ABG 20.3 mEq/l (+/-2.0); Carboxyhemoglobin 0.3 % THb (0-2.0); Fractional Inspired Oxygen 95 %; HCO3 ABG 48.2 mEq/l (22.0-26.0); Methemoglobin ABG 0.4 %THb (0-1.5); Oxygen Content ABG 12.2 %vol (16.0-22.0); Oxyhemoglobin 85.9 % THb (90.0-100.0); PO2 ABG 54.5 mmHg (80.0-100.0); PO2 FiO2 Ratio Arterial Blood 0.57 %; Reduced Hemoglobin 13.4 %THb (0-5.0); Total Hemoglobin 10.1 g/dL (12.0-18.0); pH ABG 7.408 (7.350-7.450)
[2021-02-08 08:50] LABS: Device VENTILATOR; Modified Allen's Test Pass; Oxygen Saturation ABG 86.7 % (95.0-100.0); PCO2 ABG 78.2 mmHg (35.0-45.0); Site Drawn LEFT RADIAL
[2021-02-08 08:51] LABS: Arterial Blood Gas PEEP 8 cmH2O; Arterial Blood Gas Vent Mode PRESSURE CONTROL; Arterial Blood Gas Ventilator rate 32 /MIN
[2021-02-08 08:52] LABS: Peak Inspiratory Pressure 44 cmH2O
--- NOTE | 2021-02-08 10:13 | PM.IMPN ---
Progress Note: A&P Assessment and Plan (1) Tongue swelling: Code(s): R22.0 - Localized swelling, mass and lump, head Status: Acute Assessment and Plan: Patient's tongue is swollen and protruding could be related to allergic reaction -continue Solu-Medrol, Benadryl, famotidine for 2 days -continue monitor (2) Anemia: Code(s): D64.9 - Anemia, unspecified Status: Acute Assessment and Plan: Patient dropped her hemoglobin to 6.5 this morning on 02/06, 1 unit packed RBCs will be transfused -iron panel within normal limits on 02/06/2021 -stool for occult blood was negative on 02/06/2021 -haptoglobin levels pending, LDH elevated -hemoglobin is stable, -if hemoglobin drops will have Oncology evaluate the patient (3) Acute respiratory failure with hypoxia: Code(s): J96.01 - Acute respiratory failure with hypoxia Status: Acute Assessment and Plan: Acute hypoxic respiratory failure secondary to COVID-19 pneumonia. Over the course she has developed increasing oxygen requirements, transferred to the ICU on 01/12/2021 -was on BiPAP 12/ and 100%. Intubated 01/13 -02/04: ABG reviewed and showed worsening hypercarbia, made ventilator changes, increased I to E ratio, decreased respiratory rate and increased tidal volume. Patient also has elevated peak pressures which improved after I made no ventilator changes. Patient was also tried on pressure control ventilation without any change in her peak pressures -tolerate permissive hypercapnia. Repeat ABGs improved -currently PEEP 8 and 85% FiO2. Will continue to wean FiO2 as tolerated -02/06/2021 CXR: There are persistent diffuse bilateral pulmonary infiltrates with air bronchograms in the lower lobes in particular, especially on the left, unchanged since 02/05/2021. -02/07/2021: Peak pressures remain elevated between 52 and 58, despite being sedated with fentanyl, Versed, propofol infusion and on Nimbex for neuromuscular blockade. Patient switched to PCV mode of ventilation, decrease PEEP to 5, trying to mass minute ventilation and trying to keep the peak pressures under 50. -02/08/2021: Chest x-ray shows right pneumothorax, chest tube in place. Currently on PCV, 100% FiO2 peep of 8. Peak pressure is still elevated, patient on Nimbex but over breathing the ventilator and requiring intermittent rocuronium bolus. Will stop Nimbex infusion and started rocuronium infusion -continue bronchodilators and Pulmicort -01/23/2021, sputum cultures grew normal macario 02/03/2021: Sputum cultures growing Klebsiella pneumoniae, forman sensitive, on imipenem, started on 01/29/2021. (4) Pneumonia due to COVID-19 virus: Code(s): U07.1 - COVID-19; J12.82 - Pneumonia due to coronavirus disease 2019 Status: Acute Assessment and Plan: Patient tested positive for COVID on 12/25/2020. Patient is unvaccinated -she is status post Remdesivir, dexamethasone -status post a course of azithromycin and ceftriaxone on admission - completed a course of Baricitinib for 14 days -also completed a long course of steroids and now off of Solu-Medrol given patient developed UTI and bacterial pneumonia -patient was on vitamin-C, vitamin-D and zinc for more than 2 weeks -at home patient was also taking hydroxychloroquine -upon admission to the ICU, patient's was demanding to start method of ivermectin, prednisolone, nitazoxanide, fluvoxamine, cyproheptadine, famotidine, discussed with the in details and explained to him that the is no appropriate and evidence behind usage of these medications in patients with COVID-19. -continue airborne, droplet, contact isolation precaution (5) Pneumomediastinum: Code(s): J98.2 - Interstitial emphysema Status: Acute Assessment and Plan: Pneumomediastinum seen on checks x-ray on 01/25/2021 which has improved since Continue to monitor at this time (6) Pneumothorax on right: Onset Date: ~01/14/21
--- NOTE | 2021-02-08 10:45 | P.PNINT_ITS ---
Progress Note: A&P Assessment and Plan (1) Tongue swelling: Code(s): R22.0 - Localized swelling, mass and lump, head Status: Acute Assessment and Plan: Patient's tongue is swollen and protruding could be related to allergic reaction -continue Solu-Medrol, Benadryl, famotidine for 2 days -continue monitor (2) Anemia: Code(s): D64.9 - Anemia, unspecified Status: Acute Assessment and Plan: Patient dropped her hemoglobin to 6.5 this morning on 02/06, 1 unit packed RBCs will be transfused -iron panel within normal limits on 02/06/2021 -stool for occult blood was negative on 02/06/2021 -haptoglobin levels pending, LDH elevated -hemoglobin is stable, -if hemoglobin drops will have Oncology evaluate the patient (3) Acute respiratory failure with hypoxia: Code(s): J96.01 - Acute respiratory failure with hypoxia Status: Acute Assessment and Plan: Acute hypoxic respiratory failure secondary to COVID-19 pneumonia. Over the course she has developed increasing oxygen requirements, transferred to the ICU on 01/12/2021 -was on BiPAP 12/ and 100%. Intubated 01/13 -02/04: ABG reviewed and showed worsening hypercarbia, made ventilator changes, increased I to E ratio, decreased respiratory rate and increased tidal volume. Patient also has elevated peak pressures which improved after I made no ventilator changes. Patient was also tried on pressure control ventilation without any change in her peak pressures -tolerate permissive hypercapnia. Repeat ABGs improved -currently PEEP 8 and 85% FiO2. Will continue to wean FiO2 as tolerated -02/06/2021 CXR: There are persistent diffuse bilateral pulmonary infiltrates with air bronchograms in the lower lobes in particular, especially on the left, unchanged since 02/05/2021. -02/07/2021: Peak pressures remain elevated between 52 and 58, despite being sedated with fentanyl, Versed, propofol infusion and on Nimbex for neuromuscular blockade. Patient switched to PCV mode of ventilation, decrease PEEP to 5, trying to mass minute ventilation and trying to keep the peak pressures under 50. -02/08/2021: Chest x-ray shows right pneumothorax, chest tube in place. Currently on PCV, 100% FiO2 peep of 8. Peak pressure is still elevated, patient on Nimbex but over breathing the ventilator and requiring intermittent rocuronium bolus. Will stop Nimbex infusion and start rocuronium infusion -continue bronchodilators and Pulmicort -01/23/2021, sputum cultures grew normal macario 02/03/2021: Sputum cultures growing Klebsiella pneumoniae, forman sensitive, on imipenem, started on 01/29/2021. (4) Pneumonia due to COVID-19 virus: Code(s): U07.1 - COVID-19; J12.82 - Pneumonia due to coronavirus disease 2019 Status: Acute Assessment and Plan: Patient tested positive for COVID on 12/25/2020. Patient is unvaccinated -she is status post Remdesivir, dexamethasone -status post a course of azithromycin and ceftriaxone on admission - completed a course of Baricitinib for 14 days -also completed a long course of steroids and now off of Solu-Medrol given patient developed UTI and bacterial pneumonia -patient was on vitamin-C, vitamin-D and zinc for more than 2 weeks -at home patient was also taking hydroxychloroquine -upon admission to the ICU, patient's was demanding to start method of ivermectin, prednisolone, nitazoxanide, fluvoxamine, cyproheptadine, famotidine, discussed with the in details and explained to him that the is no appropriate and evidence behind usage of these medications in patients with COVID-19. -continue airborne, droplet, contact isolation precaution
[2021-02-08 11:09] LABS: Glucose Point of Care 154 mg/dl (65-105)
[2021-02-08] MEDS: ROCURONIUM BROMIDE 50 MG/5 ML VIAL 80 MG IV PUSH (11:15)
--- NOTE | 2021-02-08 13:53 | WPDPROCEDUR ---
Procedures Intubation Intubation Date: 02/08/21 Intubation Time: 13:41 A pre-procedural Time-Out was completed immediately before starting the procedure and confirmed: Patient Identification, Site, Procedure, Patient Position and the Availability of Requisite Equipment: No (emergent) Sedative: other (Patient already sedated and paralyzed) Laryngoscope: fiber optic video scope Assist device used: fiber optic device ET tube size: 6.5 Tube secured depth (cm): 24 Tube secured location: lips Tube placement confirmation: visualized tube passing through cords, equal breath sounds bilaterally, no breath sounds over epigastrium and confirmation by capnometry Patient tolerated procedure: well and other Intubation complications: difficult intubation Additional comments: Patient's ET tube was dislodged while placing the patient in prone position. She was desaturating the 70s, as soon as he noticed that her ET tube was not in the correct position, placed patient back in supine position and started bagging patient, quickly looked with the GlideScope and the balloon of the ET tube was above the vocal cords, patient ETT was quickly removed. Patient's tongue is significantly swollen, I was able to put the glide scope blade and sliding a 6.5 mm ET tube. Hypopharynx and area around the vocal cords were also swollen. Patient did drop her O2 sats but was quickly bagged with BM be through the ETT 92-94%. -chest x-ray has been ordered stat for ET tube placement.
[2021-02-08] MEDS: EPOPROSTENOL SODIUM 0.5 MG VIAL 1 MG INHALATION ×2 (14:00→19:24)
--- NOTE | 2021-02-08 14:03 | PM.EVENT ---
Event Note Event Note Event Note: Patient's ET tube was dislodged while placing the patient in prone position. She was desaturating the 70s, as soon as he noticed that her ET tube was not in the correct position, placed patient back in supine position and started bagging patient, quickly looked with the GlideScope and the balloon of the ET tube was above the vocal cords, patient ETT was quickly removed. Patient's tongue is significantly swollen, I was able to put the glide scope blade and sliding a 6.5 mm ET tube. Hypopharynx and area around the vocal cords were also swollen. Patient did drop her O2 sats but was quickly bagged with BMV through the ETT 92-94%. Once connected to the ventilator patient, patient dropped her O2 sats, stats chest x-ray showed increased right-sided pneumothorax. -discussed with surgery who is here to place a 2nd chest tube and right-sided. -discussed with surgeon, soon as a placed a 2nd chest tube a large gush of air was heard coming out of the chest tube. Patient is saturating 100% post chest tube placement. -will repeat x-ray post chest tube placement
--- NOTE | 2021-02-08 14:46 | P.OP_ITS ---
Procedure Note - Detailed Date of Procedure 02/08/21 Pre-op Diagnosis recurrent R pneumothorax, covid pneumonia, respiratory failure Post-op Diagnosis same Procedure Performed placement of right 20 iraqi chest tube Surgeon Kristi Magana MD Anesthesia general Indications 60-year-old female with complicated respiratory failure from COVID pneumonia. Patient initially had chest tube placed for right pneumothorax on 01/[address] Adams. Patient had acute worsening respiratory failure today and subsequent chest x-ray showed recurrent right pneumothorax with mediastinal shift. Findings Large gush of air upon entering the thoracic cavity chest tube directed inferior and posterior Description of Procedure The patient was placed in the supine position with the right arm raised. A time-out was then done to verify the patient's identity as well as the procedure being performed. The patient was then prepped and draped in the normal sterile fashion. I then made an incision inferior to the previously placed chest tube. I then gained access to the thoracic rib space. I then used a Zaira clamp to gain access into the thoracic cavity. This was noted to be inferior to the previously placed chest tube. Upon getting into the chest cavity, a large gush of air was noted. I then placed a 20 Croatian chest tube into the thoracic cavity directing this inferior and posterior. It was noted that the patient's saturations immediately improved. I then sutured the chest tube in place and sterile dressing including Vaseline gauze was placed. The chest tube was then hooked up to the atrium. A stat chest x-ray will now be ordered. The patient tolerated the procedure well. Implants Twenty Croatian right-sided chest tube Estimated Blood Loss 5 Drains Yes Packing No Pathology none sent Complications No immediate complications Condition critical Disposition ICU
[2021-02-08 18:09] LABS: Glucose Point of Care 181 mg/dl (65-105)
[2021-02-09] VITALS (57 sets, daily range): BP systolic 94–169; BP diastolic 57–99; PULSE 69–133; RESP 32–34; TEMP 36.1–36.6; O2SAT 92–99
[2021-02-09] MEDS: methylPREDNISolone SOD SUCC 125 MG VIAL 60 MG IV PUSH ×5 (00:16→23:27)
[2021-02-09 00:26] LABS: Glucose Point of Care 111 mg/dl (65-105)
[2021-02-09] MEDS: EPOPROSTENOL SODIUM 0.5 MG VIAL 1 MG INHALATION ×2 (01:31→07:28)
[2021-02-09] MEDS: PROPOFOL IV EMULSION 100 ML 17.93 MG IV CONT ×3 (03:17→13:38)
[2021-02-09] MEDS: diphenhydrAMINE HCl INJ 50 MG/ML VIAL IV PUSH ×4 (03:36→22:07)
[2021-02-09 03:56] LABS: Hematocrit 28.5 % (37.0-47.0); Hemoglobin 8.8 g/dL (12.0-15.0); Mean Corpuscular HGB Conc 30.9 g/dl (32-36); Mean Corpuscular Volume 90.8 fl (80-100); Mean Platelet Volume 9.5 fl (7.4-10.4); Platelet Count Result 524 k/mm3 (150-375); Red Blood Count 3.14 M/mm3 (4.2-5.4); Red Cell Distribution Width 16.6 % (11.5-14.5); White Blood Count 16.3 K/mm3 (4.5-10.0)
[2021-02-09 04:54] LABS: Alanine Aminotransferase 110 U/L (4-35); Alkaline Phosphatase 126 U/L (38-126); Aspartate Amino Transferase 47 U/L (14-36); Bilirubin,Total 0.2 mg/dL (0.2-1.3); Blood Urea Nitrogen 17 mg/dL (7-17); Calcium 9.2 mg/dL (8.4-10.2); Carbon Dioxide > 40 mmol/L (22-30); Chloride 86 mmol/L (98-107); Estimated CRCL calculation 153 ml/min; Estimated Glomerular Filt Rate > 60; Glucose 144 mg/dL (65-110); Magnesium 1.8 mg/dL (1.6-2.3); Phosphorus 3.7 mg/dL (2.5-4.5); Potassium 2.9 mmol/L (3.4-5.0); Sodium 137 mmol/L (137-145)
[2021-02-09 05:45] LABS: Alveolar/Arterial O2 Gradient 511.2 mmHg; Base Excess ABG 18.6 mEq/l (+/-2.0); Carboxyhemoglobin 0.4 % THb (0-2.0); Fractional Inspired Oxygen 90 %; HCO3 ABG 44.1 mEq/l (22.0-26.0); Methemoglobin ABG 0.3 %THb (0-1.5); Oxygen Content ABG 15.6 %vol (16.0-22.0); Oxygen Saturation ABG 95.9 % (95.0-100.0); Oxyhemoglobin 94.2 % THb (90.0-100.0); PO2 ABG 74.1 mmHg (80.0-100.0); PO2 FiO2 Ratio Arterial Blood 0.82 %; Reduced Hemoglobin 5.1 %THb (0-5.0); Total Hemoglobin 11.7 g/dL (12.0-18.0)
[2021-02-09 05:46] LABS: Device VENTILATOR; Modified Allen's Test Unable to perform; Site Drawn RIGHT RADIAL; pH ABG 7.522 (7.350-7.450)
[2021-02-09 05:47] LABS: Arterial Blood Gas Ventilator rate 32 /MIN
[2021-02-09 05:48] LABS: Arterial Blood Gas PEEP 10 cmH2O; Arterial Blood Gas Vent Mode PRESSURE CONTROL; Peak Inspiratory Pressure 44 cmH2O
[2021-02-09] MEDS: POTASSIUM CHLORIDE 20 MEQ PACKET (FOR LIQUID) 80 MEQ FEED TUBE (06:08)
[2021-02-09] MEDS: MIDAZOLAM 100MG/NS 100ML(*CRX) 100 MG/100 ML BAG 9 MG IV CONT ×2 (06:08→17:12)
[2021-02-09] MEDS: CENTRAL LINE FLUSH 10 ML IV PUSH ×3 (06:09→20:10)
[2021-02-09] MEDS: FENTANYL 2,500MCG/NS250ML(*CRX 2,500 MCG/250 ML BAG 20 MCG IV CONT ×2 (08:18→20:05)
[2021-02-09] MEDS: SACCHAROMYCES BOULARDII 250 MG CAPSULE PO ×2 (08:22→17:11)
[2021-02-09] MEDS: FAMOTIDINE 20 MG/2 ML VIAL IV PUSH ×2 (08:22→20:10)
[2021-02-09] MEDS: PANTOPRAZOLE SODIUM IV 40 MG VIAL IV PUSH ×2 (08:22→20:10)
[2021-02-09] MEDS: MINERAL OIL/WHITE PETROLATUM OINTMENT 1 APPLIC EACH EYE ×2 (08:22→20:10)
--- NOTE | 2021-02-09 09:22 | WPDINTPN ---
Progress Note: A&P Assessment and Plan (1) Tongue swelling: Code(s): R22.0 - Localized swelling, mass and lump, head Status: Acute Assessment and Plan: Swelling of the time is definitely improving. Patient's tongue is swollen and protruding could be related to allergic reaction -continue Solu-Medrol, Benadryl, famotidine x4 days -continue monitor Also very intubating the patient on 02/08/2021 patient had a lot of swelling of her tongue, posterior pharynx and hypopharynx. There was a lot of swelling noted around the vocal cords (2) Anemia: Code(s): D64.9 - Anemia, unspecified Status: Acute Assessment and Plan: Patient dropped her hemoglobin to 6.5 this morning on 02/06, 1 unit packed RBCs will be transfused -iron panel within normal limits on 02/06/2021 -stool for occult blood was negative on 02/06/2021 -haptoglobin levels pending, LDH elevated -hemoglobin is stable, -if hemoglobin drops will have Oncology evaluate the patient (3) Acute respiratory failure with hypoxia: Code(s): J96.01 - Acute respiratory failure with hypoxia Status: Acute Assessment and Plan: Acute hypoxic respiratory failure secondary to COVID-19 pneumonia. Over the course she has developed increasing oxygen requirements, transferred to the ICU on 01/12/2021 -was on BiPAP / and 100%. Intubated 01/13 -02/04: ABG reviewed and showed worsening hypercarbia, made ventilator changes, increased I to E ratio, decreased respiratory rate and increased tidal volume. Patient also has elevated peak pressures which improved after I made no ventilator changes. Patient was also tried on pressure control ventilation without any change in her peak pressures -tolerate permissive hypercapnia. Repeat ABGs improved -currently PEEP 8 and 85% FiO2. Will continue to wean FiO2 as tolerated -02/06/2021 CXR: There are persistent diffuse bilateral pulmonary infiltrates with air bronchograms in the lower lobes in particular, especially on the left, unchanged since 02/05/2021. -02/07/2021: Peak pressures remain elevated between 52 and 58, despite being sedated with fentanyl, Versed, propofol infusion and on Nimbex for neuromuscular blockade. Patient switched to PCV mode of ventilation, decrease PEEP to 5, trying to mass minute ventilation and trying to keep the peak pressures under 50. -02/08/2021: Patient dislodged her ETT while being placed in the prone position. Dropped his saturations, patient had to be intubated with a 6.5 ETT due to significant swelling of the tongue. Also started on Flolan due to her decreased O2 sats. -currently on pressure control ventilation, inspiratory pressure of 44, peep of 10, rate of 32, 90% FiO2. O2 sats have been good. - ABGs and chest x-ray have been reviewed, high decreased the inspiratory pressure to 38 and PEEP to 8. -will start weaning Flolan -continue bronchodilators and Pulmicort -01/23/2021, sputum cultures grew normal macario 02/03/2021: Sputum cultures growing Klebsiella pneumoniae, forman sensitive, on imipenem, started on 01/29/2021. (4) Pneumonia due to COVID-19 virus: Code(s): U07.1 - COVID-19; J12.82 - Pneumonia due to coronavirus disease 2019 Status: Acute Assessment and Plan: Patient tested positive for COVID on 12/25/2020. Patient is unvaccinated -she is status post Remdesivir, dexamethasone -status post a course of azithromycin and ceftriaxone on admission - completed a course of Baricitinib for 14 days -also completed a long course of steroids and now off of Solu-Medrol given patient developed UTI and bacterial pneumonia -patient was on vitamin-C, vitamin-D and zinc for more than 2 weeks -at home patient was also taking hydroxychloroquine -upon admission to the ICU, patient's was demanding to start method of ivermectin, prednisolone, nitazoxanide, fluvoxamine, cyproheptadine, famotidine, discussed with the in details and explained to him that the is no appropr
--- NOTE | 2021-02-09 11:40 | PCDIET ---
ICU Rounding Note: Tube feedings previously held (02/08/21) due to pneumothorax and ET tube dislodgment while proning. Vital 1.2 has since been resumed with goal of 50mL/hr and 30mL water flush every 4 hours. Last recorded weight is 83.5kg which is increased from last review. Bowel Motility: 50mL output today thus far in [facility]. Labs Reviewed: WBC (16.3), RBC (3.14), Hgb (8.8), Hct (28.5), Glu (144), Cr (0.3), K (2.9), Alb (3.0) Meds Noted: Propofol (rate of 17.93mL/hr provides 473kcal per day), Flolan, Pepcid, Fentanyl, Primaxin, Atrovent, Xopenex, Solu Medrol, Versed, Levophed, Protonix, Zemuron, Vancomycin, KCl Additional Notes: No documented skin breakdown. Following daily in ICU rounds. Assessing/reassessing every Tuesday/Tuesday.
--- NOTE | 2021-02-09 12:36 | PM.IMPN ---
Progress Note: A&P Assessment and Plan (1) Acute respiratory failure with hypoxia: Code(s): J96.01 - Acute respiratory failure with hypoxia Status: Acute Assessment and Plan: Patient with acute respiratory failure secondary to COVID pneumonia. CTA of the chest 12/30 showing no central pulmonary embolus identified (sensitivity limited by motion artifact) and patchy bilateral airspace opacities have pattern consistent with COVID-19 pneumonia. Oxygen requirement worsened requiring intubation on 01/13 despite aggressive medical treatment. She remains intubated and sedated but now requiring paralytics and Flolan. Proning patient as she tolerates. PEG and trach was being planned but on hold. Wean Flolan as tolerated. Appreciate shop hand input. (2) Anemia: Code(s): D64.9 - Anemia, unspecified Status: Acute Assessment and Plan: Hgb normal on admission but has trended down slowly to the 7-8 range since 01/23/21 but stable. Hgb did drop to 6.5 on 02/06. No evidence of acute blood loss. One unit ordered of PRBCs. Repeat HH back into the 7-8 range and stable. Contineu to monitor closely and transfuse as needed. Changed to Protonix. (3) Shock: Code(s): R57.9 - Shock, unspecified Status: Acute Assessment and Plan: Patient became hypotensive on 01/14 requiring Levophed. Hypotension felt related to sedation and hypovolemia. IV fluids given. BCx 01/10 negative. Able to wean off Levophed within 1 day but had recurrent HoTN on 01/20 requiring levophed again. Repeat BCx 01/22 negative as well. She has required Levophed off/on due to fluid status and/or infections etiology and last used Levophed 02/02. UCx 01/22 growing Proteus and Enterococcus treated with Rocephin and Vanco. Was having recurrent fevers and also hypothermic. WBC only mildly elevated. Patient was re-cultured 01/29 and broad spectrum abx started. BCx 01/29 and UCx negative. Sputum Cx 02/03 Growing Klebsiella and Yeast. BP soft 02/05 requiring Hespan. BP still soft related to the anemia so Levophed resumed 02/06 but able to wean off again later that day. Continue IV abx Day 12. Follow up on sensitivities. Cover for yeast? (4) Pneumothorax on right: Onset Date: ~01/14/21 Code(s): J93.9 - Pneumothorax, unspecified Status: Acute Assessment and Plan: Patient with PTX on the right with CT in place. CXR 02/08 showing recurrent right PTX. A second chest tube added. Chest tube management per shop hand. Continue daily CXR. (5) Tongue swelling: Code(s): R22.0 - Localized swelling, mass and lump, head Status: Acute Assessment and Plan: Thought tongue edema related to allergic reaction. Solu-Medrol, Benadryl and Pepcid started. Tongue edema better but still protuberant. Continue current care plan. Consider CT scan to exclude masses. (6) Pneumomediastinum: Code(s): J98.2 - Interstitial emphysema Status: Acute Assessment and Plan: Patient had evidence of pneumomediastinum by CXR with SQ crepitus. Serial CXR showing that most of the pneumomediastinum has resolved. SQ emphysema no longer present. Monitor closely. Continue daily CXR. (7) Pneumonia due to COVID-19 virus: Code(s): U07.1 - COVID-19; J12.82 - Pneumonia due to coronavirus disease 2019 Status: Acute Assessment and Plan: Patient did not receive a COVID vaccination. She was exposed to an individual who was COVID positive. She did come in on hydroxychloroquine, zinc, vitamin-C and D from home. She began to have symptoms around 12/24/20. She was COVID positive (rapid) on 12/25/20 when in the ED. Returned to ED on 12/30 for worsening symptoms and was admitted. She has since completed Remdesivir, Dexamethasone and Baricitinib. Convalescent plasma given 01/04/21. Vit C,D, and zinc were ordered. Lasix IV given intermittently. Completed a course of Azithromycin as well. demanded that his be treated with Doris
[2021-02-09 13:19] LABS: Glucose Point of Care 79 mg/dl (65-105)
[2021-02-09 13:56] LABS: Blood Urea Nitrogen 18 mg/dL (7-17); Calcium 8.3 mg/dL (8.4-10.2); Carbon Dioxide > 40 mmol/L (22-30); Chloride 91 mmol/L (98-107); Estimated CRCL calculation 153 ml/min; Estimated Glomerular Filt Rate > 60; Glucose 145 mg/dL (65-110); Potassium 3.6 mmol/L (3.4-5.0); Sodium 150 mmol/L (137-145)
[2021-02-09] MEDS: EPOPROSTENOL SODIUM 0.5 MG VIAL INHALATION ×2 (13:56→19:29)
[2021-02-09] MEDS: POTASSIUM CHLORIDE 20 MEQ PACKET (FOR LIQUID) 40 MEQ PO (15:16)
[2021-02-09 17:31] LABS: Glucose Point of Care 112 mg/dl (65-105)
[2021-02-09 18:17] LABS: Blood Urea Nitrogen 17 mg/dL (7-17); Calcium 9.3 mg/dL (8.4-10.2); Carbon Dioxide > 40 mmol/L (22-30); Chloride 92 mmol/L (98-107); Estimated CRCL calculation 120 ml/min; Estimated Glomerular Filt Rate > 60; Glucose 183 mg/dL (65-110); Potassium 4.7 mmol/L (3.4-5.0); Sodium 139 mmol/L (137-145)
[2021-02-09] MEDS: PROPOFOL IV EMULSION 100 ML 22.41 MG IV CONT ×2 (19:30→23:23)
[2021-02-09] MEDS: METOPROLOL TARTRATE INJ 5 MG/5 ML VIAL IV PUSH (20:18)
[2021-02-09 23:36] LABS: Glucose Point of Care 146 mg/dl (65-105)
[2021-02-10] VITALS (58 sets, daily range): BP systolic 102–140; BP diastolic 56–100; PULSE 11–128; RESP 32–36; TEMP 36.3–36.6; O2SAT 93–98
[2021-02-10] MEDS: EPOPROSTENOL SODIUM 0.5 MG VIAL INHALATION ×4 (01:40→20:48)
[2021-02-10] MEDS: MIDAZOLAM 100MG/NS 100ML(*CRX) 100 MG/100 ML BAG 10 MG IV CONT ×3 (03:34→22:10)
[2021-02-10] MEDS: METOPROLOL TARTRATE INJ 5 MG/5 ML VIAL IV PUSH (03:34)
[2021-02-10] MEDS: PROPOFOL IV EMULSION 100 ML 22.41 MG IV CONT ×5 (03:36→19:49)
[2021-02-10] MEDS: diphenhydrAMINE HCl INJ 50 MG/ML VIAL IV PUSH ×4 (03:41→22:10)
[2021-02-10 04:15] LABS: Hemoglobin 9.8 g/dL (12.0-15.0); Mean Corpuscular HGB Conc 30.6 g/dl (32-36); Mean Corpuscular Hemoglobin 28.4 pg (26-34); Mean Corpuscular Volume 92.8 fl (80-100); Mean Platelet Volume 9.7 fl (7.4-10.4); Platelet Count Result 681 k/mm3 (150-375); Red Blood Count 3.45 M/mm3 (4.2-5.4); Red Cell Distribution Width 16.7 % (11.5-14.5); White Blood Count 22.5 K/mm3 (4.5-10.0)
[2021-02-10 04:17] LABS: Alveolar/Arterial O2 Gradient 475.2 mmHg; Base Excess ABG 11.5 mEq/l (+/-2.0); Carboxyhemoglobin 0.3 % THb (0-2.0); Fractional Inspired Oxygen 90 %; HCO3 ABG 40.4 mEq/l (22.0-26.0); Methemoglobin ABG 0.5 %THb (0-1.5); Oxygen Content ABG 14.5 %vol (16.0-22.0); Oxygen Saturation ABG 94.6 % (95.0-100.0); Oxyhemoglobin 93.3 % THb (90.0-100.0); PO2 ABG 82.8 mmHg (80.0-100.0); PO2 FiO2 Ratio Arterial Blood 0.92 %; Reduced Hemoglobin 5.9 %THb (0-5.0); pH ABG 7.312 (7.350-7.450)
[2021-02-10 04:18] LABS: Device VENTILATOR; Modified Allen's Test Pass; PCO2 ABG 81.7 mmHg (35.0-45.0); Site Drawn LEFT RADIAL
[2021-02-10 04:19] LABS: Arterial Blood Gas PEEP 8 cmH2O; Arterial Blood Gas Vent Mode PRESSURE CONTROL; Arterial Blood Gas Ventilator rate 32 /MIN; Peak Inspiratory Pressure 38 cmH2O
[2021-02-10 04:31] LABS: Alanine Aminotransferase 115 U/L (4-35); Albumin Level 3.2 g/dL (3.5-5.1); Alkaline Phosphatase 142 U/L (38-126); Aspartate Amino Transferase 32 U/L (14-36); Bilirubin,Total 0.2 mg/dL (0.2-1.3); Blood Urea Nitrogen 21 mg/dL (7-17); Calcium 9.2 mg/dL (8.4-10.2); Carbon Dioxide > 40 mmol/L (22-30); Chloride 93 mmol/L (98-107); Estimated CRCL calculation 154 ml/min; Estimated Glomerular Filt Rate > 60; Glucose 191 mg/dL (65-110); Phosphorus 4.9 mg/dL (2.5-4.5); Potassium 4.7 mmol/L (3.4-5.0); Sodium 139 mmol/L (137-145)
[2021-02-10] MEDS: methylPREDNISolone SOD SUCC 125 MG VIAL 60 MG IV PUSH ×4 (06:31→23:13)
[2021-02-10] MEDS: CENTRAL LINE FLUSH 10 ML IV PUSH ×3 (06:32→22:10)
[2021-02-10] MEDS: SACCHAROMYCES BOULARDII 250 MG CAPSULE PO ×2 (08:20→17:56)
[2021-02-10] MEDS: MINERAL OIL/WHITE PETROLATUM OINTMENT 1 APPLIC EACH EYE ×2 (08:20→19:58)
[2021-02-10] MEDS: PANTOPRAZOLE SODIUM IV 40 MG VIAL IV PUSH ×2 (08:20→19:58)
[2021-02-10] MEDS: FAMOTIDINE 20 MG/2 ML VIAL IV PUSH ×2 (08:21→19:58)
[2021-02-10] MEDS: FENTANYL 2,500MCG/NS250ML(*CRX 2,500 MCG/250 ML BAG 20 MCG IV CONT ×2 (08:23→19:48)
--- NOTE | 2021-02-10 10:57 | WPDINTPN ---
Progress Note: A&P Assessment and Plan (1) Acute respiratory failure with hypoxia: Code(s): J96.01 - Acute respiratory failure with hypoxia Status: Acute Assessment and Plan: Acute hypoxic respiratory failure secondary to COVID-19 pneumonia. Over the course she has developed increasing oxygen requirements, transferred to the ICU on 01/12/2021 -was on BiPAP 12/6 and 100%. Intubated 01/13 -[facility] was called twice for consideration for ECMO but they did not feel patient was candidate for ECMO -02/04: ABG reviewed - currently on pressure control ventilation with rate at 32 PEEP 8 and 90% FiO2. Increase PEEP to 10 Will continue to wean FiO2 as tolerated -chest x-ray reviewed -02/08/2021: Patient dislodged her ETT while being placed in the prone position. Dropped his saturations, patient had to be intubated with a 6.5 ETT due to significant swelling of the tongue. Also started on Flolan due to her decreased O2 sats. -on inhaled Flolan' -continue bronchodilators and Pulmicort -01/23/2021, sputum cultures grew normal macario , 02/03/2021: Sputum cultures growing Klebsiella pneumoniae, forman sensitive, on imipenem, started on 01/29/2021. -patient's respiratory failure management has always been limited by high Peak pressures which was being managed with permissive hypercapnia. Over time her lungs have stiffened and the pressures have worsened. Patient is heavily sedated with fentanyl, Versed, propofol infusion and is on rocuronium infusion for neuromuscular blockade. Patient was switched to PCV mode of ventilation -patient was proned daily earlier in the course but lately patient has not tolerated prone ventilation. A last 2 episodes patient became tachycardic, hypotensive with significant increase in pressure and drop in her ventilation on Proning (2) Pneumonia due to COVID-19 virus: Code(s): U07.1 - COVID-19; J12.82 - Pneumonia due to coronavirus disease 2019 Status: Acute Assessment and Plan: Patient tested positive for COVID on 12/25/2020. Patient is unvaccinated -she is status post course of Remdesivir, dexamethasone -status post a course of azithromycin and ceftriaxone on admission - completed a course of Baricitinib for 14 days -also completed a long course of Solu-Medrol which was later discontinued as patient developed UTI and bacterial pneumonia. Now she is on a course of Solu-Medrol secondary to tongue swelling -patient was on vitamin-C, vitamin-D and zinc for more than 2 weeks -at home patient was also taking hydroxychloroquine -upon admission to the ICU, patient's was demanding to start method of ivermectin, prednisolone, nitazoxanide, fluvoxamine, cyproheptadine, famotidine, discussed with the in details and explained to him that the is no appropriate and evidence behind usage of these medications in patients with COVID-19. -patient's continues to request treatment with Ivermactin, increased doses of budesonide, steroids based on information he has obtained from Internet. We have had several discussions with patient's regarding lack of evidence behind benefit of ivermectin and possible side effects but we have been unable to convince him.. -initially on admission to ICU I did offer patient's that I would be willing to transfer patient to a facility that uses his requested MATH+ protocol for treatment of COVID if he knows any since I am not aware of any facility in [facility] which she uses ivermectin and math+ protocol for treatment of COVID. -I did call [facility] for evaluation for candidacy for ECMO but I was told patient did not meet their criteria -continue airborne, droplet, contact isolation precaution (3) Pneumothorax on right: Onset Date: ~01/14/21 Code(s): J93.9 - Pneumothorax, unspecified Status: Acute Assessment and Plan: Status post right chest tube placement by General surgery Chest tube is on suction. No air leak at this ti
[2021-02-10] MEDS: ENOXAPARIN 40 MG/0.4 ML SYRINGE SUB-Q (11:29)
--- NOTE | 2021-02-10 11:47 | PCDIET ---
Nutrition Follow-Up Complete: Nutrition Diagnosis: Suboptimal oral intake related to COVID as evidenced by average intake of 65% of recorded meals over last week with inability to eat breakfast today. Nutrition Goal: Patient to meet estimated nutritional needs. Goal met. Patient tolerating Vital 1.2 at 50mL/hr goal rate with 30mL water flush every 4 hours. Last recorded weight is 84.2 kg which is increased from last review. +I/O. Bowel Motility: 50mL output on 02/09/21 in [facility]MS. Labs Reviewed: WBC (22.5), RBC (3.45), Hgb (9.8), Hct (32.0), Glu (191), BUN (21), Cr (0.3), Alb (3.2), PO4 (4.9) Meds Noted: Propofol (rate of 22.41mL/hr provides 591kcal per day), Pulmicort, Benadryl, Flolan, Pepcid, Fentanyl, Primaxin, Atrovent, Xopenex, Solu Medrol, Vancomycin, Lopressor, Versed, Protonix, Zemuron, Florastor Additional Notes: Left cheek abrasion. Groin macerated. Will continue to monitor with same goal. Nutrition Monitoring and Evaluation: Follow up every Tuesday/Tuesday.
[2021-02-10 12:25] LABS: Vancomycin Trough 17.9 ug/mL (10.0-20.0)
[2021-02-10 13:22] LABS: Glucose Point of Care 137 mg/dl (65-105)
[2021-02-10 14:24] LABS: Haptoglobin 379 mg/dL (43-212)
--- NOTE | 2021-02-10 17:02 | PM.IMPN ---
Progress Note: A&P Assessment and Plan (1) Acute respiratory failure with hypoxia: Code(s): J96.01 - Acute respiratory failure with hypoxia Status: Acute Assessment and Plan: Patient with acute respiratory failure secondary to COVID pneumonia. CTA of the chest 12/30 showing no central pulmonary embolus identified (sensitivity limited by motion artifact) and patchy bilateral airspace opacities have pattern consistent with COVID-19 pneumonia. Oxygen requirement worsened requiring intubation on 01/13 despite aggressive medical treatment. She remains intubated and sedated but now requiring paralytics and Flolan. Proning patient as she tolerates. PEG and trach was being planned but on hold. Wean Flolan as tolerated. Family has been made aware of the severity of the patient's illness. Appreciate assistant hvac mechanic input. (2) Anemia: Code(s): D64.9 - Anemia, unspecified Status: Acute Assessment and Plan: Hgb normal on admission but has trended down slowly to the 7-8 range since 01/23/21 but stable. Hgb did drop to 6.5 on 02/06. No evidence of acute blood loss. One unit ordered of PRBCs. Repeat HH back into the 8-9 range and stable. Continue to monitor closely and transfuse as needed. Continue Protonix. (3) Shock: Code(s): R57.9 - Shock, unspecified Status: Acute Assessment and Plan: Patient became hypotensive on 01/14 related to sedation and hypovolemia requiring Levophed and IV fluids. BCx 01/10 negative. UCx 01/22 growing Proteus and Enterococcus treated with Rocephin and Vanco. Was having recurrent fevers and also hypothermic. Patient was re-cultured 01/29 and broad spectrum abx started. BCx 01/29 and UCx negative. Sputum Cx 02/03 growing Klebsiella relatively forman-sensitive and Yeast. BP soft 02/05 requiring Hespan. She has required Levophed off/on due to fluid status and/or infections etiology and last used Levophed 02/06. BP soft related to the anemia as well. Continue IV abx Day 13. (4) Pneumothorax on right: Onset Date: ~01/14/21 Code(s): J93.9 - Pneumothorax, unspecified Status: Acute Assessment and Plan: Patient with PTX on the right with CT in place. CXR 02/08 showing recurrent right PTX so a second chest tube added. Chest tube management per assistant hvac mechanic. Continue daily CXR. (5) Tongue swelling: Code(s): R22.0 - Localized swelling, mass and lump, head Status: Acute Assessment and Plan: Thought tongue edema related to allergic reaction. Solu-Medrol, Benadryl and Pepcid started. Tongue edema better but still protruding. Continue current mouth care plan. Consider CT scan to exclude masses. WBC up to 22K but felt related to the steroids. (6) Pneumomediastinum: Code(s): J98.2 - Interstitial emphysema Status: Acute Assessment and Plan: Patient had evidence of pneumomediastinum by CXR with SQ crepitus. Serial CXR showing that most of the pneumomediastinum has resolved. SQ emphysema no longer present. Monitor closely. Continue daily CXR. (7) Pneumonia due to COVID-19 virus: Code(s): U07.1 - COVID-19; J12.82 - Pneumonia due to coronavirus disease 2019 Status: Acute Assessment and Plan: Patient did not receive a COVID vaccination. She was exposed to an individual who was COVID positive. She did come in on hydroxychloroquine, zinc, vitamin-C and D from home. She began to have symptoms around 12/24/20. She was COVID positive (rapid) on 12/25/20 when in the ED. Returned to ED on 12/30 for worsening symptoms and was admitted. She has since completed Remdesivir, Dexamethasone and Baricitinib. Convalescent plasma given 01/04/21. Vit C,D, and zinc were ordered. Lasix IV given intermittently. Completed a course of Azithromycin as well. demanded that his be treated with Solu-Medrol, Vit C and Ivermectin. Explained that Ivermectin was not standard of care but we did proceed with the other treatment. She was jazzy
[2021-02-10 18:56] LABS: Glucose Point of Care 149 mg/dl (65-105)
[2021-02-10 23:45] LABS: Glucose Point of Care 160 mg/dl (65-105)
[2021-02-11] VITALS (50 sets, daily range): BP systolic 97–164; BP diastolic 59–96; PULSE 79–128; RESP 32–96; TEMP 36.1–36.9; O2SAT 90–98
[2021-02-11] MEDS: PROPOFOL IV EMULSION 100 ML 22.41 MG IV CONT ×6 (00:06→19:54)
[2021-02-11] MEDS: EPOPROSTENOL SODIUM 0.5 MG VIAL INHALATION ×4 (02:56→20:31)
[2021-02-11] MEDS: diphenhydrAMINE HCl INJ 50 MG/ML VIAL IV PUSH (04:21)
[2021-02-11] MEDS: METOPROLOL TARTRATE INJ 5 MG/5 ML VIAL IV PUSH ×2 (04:21→17:42)
[2021-02-11 04:28] LABS: Alveolar/Arterial O2 Gradient 403.6 mmHg; Base Excess ABG 11.7 mEq/l (+/-2.0); Carboxyhemoglobin 0.3 % THb (0-2.0); Fractional Inspired Oxygen 80 %; HCO3 ABG 40.8 mEq/l (22.0-26.0); Methemoglobin ABG 0.4 %THb (0-1.5); Oxygen Content ABG 15.1 %vol (16.0-22.0); Oxygen Saturation ABG 94.1 % (95.0-100.0); Oxyhemoglobin 93.6 % THb (90.0-100.0); PO2 ABG 80.1 mmHg (80.0-100.0); Reduced Hemoglobin 5.7 %THb (0-5.0); Total Hemoglobin 11.4 g/dL (12.0-18.0); pH ABG 7.312 (7.350-7.450)
[2021-02-11 04:30] LABS: Arterial Blood Gas Ventilator rate 32 /MIN; Device VENTILATOR; Modified Allen's Test Pass; PCO2 ABG 82.6 mmHg (35.0-45.0); Site Drawn RIGHT RADIAL
[2021-02-11 04:31] LABS: Arterial Blood Gas PEEP 10 cmH2O; Arterial Blood Gas Vent Mode PRESSURE CONTROL; Peak Inspiratory Pressure 38 cmH2O
[2021-02-11 04:38] LABS: Hematocrit 33.8 % (37.0-47.0); Hemoglobin 10.1 g/dL (12.0-15.0); Mean Corpuscular HGB Conc 29.9 g/dl (32-36); Mean Corpuscular Hemoglobin 28.5 pg (26-34); Mean Corpuscular Volume 95.2 fl (80-100); Mean Platelet Volume 9.1 fl (7.4-10.4); Platelet Count Result 649 k/mm3 (150-375); Red Blood Count 3.55 M/mm3 (4.2-5.4); Red Cell Distribution Width 16.4 % (11.5-14.5); White Blood Count 27.8 K/mm3 (4.5-10.0)
[2021-02-11 05:09] LABS: Alanine Aminotransferase 159 U/L (4-35); Albumin Level 3.1 g/dL (3.5-5.1); Alkaline Phosphatase 154 U/L (38-126); Aspartate Amino Transferase 77 U/L (14-36); Bilirubin,Total 0.2 mg/dL (0.2-1.3); Blood Urea Nitrogen 21 mg/dL (7-17); Calcium 9.1 mg/dL (8.4-10.2); Carbon Dioxide > 40 mmol/L (22-30); Chloride 94 mmol/L (98-107); Estimated CRCL calculation 153 ml/min; Estimated Glomerular Filt Rate > 60; Glucose 166 mg/dL (65-110); Phosphorus 3.8 mg/dL (2.5-4.5); Potassium 4.4 mmol/L (3.4-5.0); Sodium 140 mmol/L (137-145)
[2021-02-11] MEDS: CENTRAL LINE FLUSH 10 ML IV PUSH ×3 (05:37→19:46)
[2021-02-11] MEDS: methylPREDNISolone SOD SUCC 125 MG VIAL 60 MG IV PUSH (05:37)
[2021-02-11] MEDS: FENTANYL 2,500MCG/NS250ML(*CRX 2,500 MCG/250 ML BAG 20 MCG IV CONT ×2 (07:51→19:41)
[2021-02-11] MEDS: MIDAZOLAM 100MG/NS 100ML(*CRX) 100 MG/100 ML BAG 10 MG IV CONT ×2 (07:54→19:40)
[2021-02-11] MEDS: FAMOTIDINE 20 MG/2 ML VIAL IV PUSH (07:59)
[2021-02-11] MEDS: ENOXAPARIN 40 MG/0.4 ML SYRINGE SUB-Q (07:59)
[2021-02-11] MEDS: MINERAL OIL/WHITE PETROLATUM OINTMENT 1 APPLIC EACH EYE ×2 (08:00→19:45)
[2021-02-11] MEDS: SACCHAROMYCES BOULARDII 250 MG CAPSULE PO ×2 (08:00→17:35)
[2021-02-11] MEDS: PANTOPRAZOLE SODIUM IV 40 MG VIAL IV PUSH ×2 (08:00→19:45)
--- NOTE | 2021-02-11 10:30 | PCDIET ---
ICU Rounding Note: Patient tolerating Vital 1.2 at 50mL/hr with 30mL water flush every 4 hours. Last recorded weight is 83.1kg which is down from last review. +I/O. Bowel Motility: 300mL out FMS today thus far. Labs Reviewed: WBC (27.8), RBC (3.55), Hgb (10.1), Hct (33.8), Glu (166), BUN (21), Cr (0.3), Alb (3.1) Meds Noted: Propofol (rate of 22.41mL/hr provides 591kcal per day), Protonix, Zemuron, Benadryl, Flolan, Pepcid, Fentanyl, Primaxin, Florastor, Vancomycin, Solu Medrol, Lopressor, Versed Additional Notes: No change in skin documented. Following daily in ICU rounds. Assessing/reassessing every Tuesday/Tuesday.
--- NOTE | 2021-02-11 11:54 | WPDINTPN ---
Progress Note: A&P Assessment and Plan (1) Acute respiratory failure with hypoxia: Code(s): J96.01 - Acute respiratory failure with hypoxia Status: Acute Assessment and Plan: Acute hypoxic respiratory failure secondary to COVID-19 pneumonia. Over the course she has developed increasing oxygen requirements, transferred to the ICU on 01/12/2021 -was on BiPAP 12/ and 100%. Intubated 01/13 -[facility] was called twice for consideration for ECMO but they did not feel patient was candidate for ECMO -02/04: ABG reviewed - currently on pressure control ventilation with rate at 32 PEEP 10 and 90% FiO2. Will continue to wean FiO2 as tolerated -chest x-ray reviewed and shows stable diffuse lung disease and small right pneumothorax -02/08/2021: Patient dislodged her ETT while being placed in the prone position. Dropped his saturations, patient had to be intubated with a 6.5 ETT due to significant swelling of the tongue. Also started on Flolan due to her decreased O2 sats. -on inhaled Flolan' -continue bronchodilators and Pulmicort -01/23/2021, sputum cultures grew normal macario , 02/03/2021: Sputum cultures growing Klebsiella pneumoniae, forman sensitive, on imipenem, started on 01/29/2021. -patient's respiratory failure management has always been limited by high Peak pressures which was being managed with permissive hypercapnia. Over time her lungs have stiffened and the pressures have worsened. Patient is heavily sedated with fentanyl, Versed, propofol infusion and is on rocuronium infusion for neuromuscular blockade. Patient was switched to PCV mode of ventilation -patient was proned daily earlier in the course but lately patient has not tolerated prone ventilation. A last 2 episodes patient became tachycardic, hypotensive with significant increase in pressure and drop in her ventilation on Proning (2) Pneumonia due to COVID-19 virus: Code(s): U07.1 - COVID-19; J12.82 - Pneumonia due to coronavirus disease 2019 Status: Acute Assessment and Plan: Patient tested positive for COVID on 12/25/2020. Patient is unvaccinated -she is status post course of Remdesivir, dexamethasone -status post a course of azithromycin and ceftriaxone on admission - completed a course of Baricitinib for 14 days -also completed a long course of Solu-Medrol which was later discontinued as patient developed UTI and bacterial pneumonia. Now she is on a course of Solu-Medrol secondary to tongue swelling -patient was on vitamin-C, vitamin-D and zinc for more than 2 weeks -at home patient was also taking hydroxychloroquine -upon admission to the ICU, patient's was demanding to start method of ivermectin, prednisolone, nitazoxanide, fluvoxamine, cyproheptadine, famotidine, discussed with the in details and explained to him that the is no appropriate and evidence behind usage of these medications in patients with COVID-19. -patient's continues to request treatment with Ivermactin, increased doses of budesonide, steroids based on information he has obtained from Internet. We have had several discussions with patient's regarding lack of evidence behind benefit of ivermectin and possible side effects but we have been unable to convince him.. -initially on admission to ICU I did offer patient's that I would be willing to transfer patient to a facility that uses his requested MATH+ protocol for treatment of COVID if he knows any since I am not aware of any facility in [facility] which she uses ivermectin and math+ protocol for treatment of COVID. -I did call [facility] for evaluation for candidacy for ECMO when patient was intubated but I was told patient did not meet their criteria -continue airborne, droplet, contact isolation precaution (3) Pneumothorax on right: Onset Date: ~01/14/21 Code(s): J93.9 - Pneumothorax, unspecified Status: Acute Assessment and Plan: Status post right chest tube plac
[2021-02-11 13:08] LABS: Glucose Point of Care 140 mg/dl (65-105)
[2021-02-11] MEDS: FUROSEMIDE INJ 40 MG/4 ML VIAL IV PUSH (14:44)
--- NOTE | 2021-02-11 17:03 | PM.IMPN ---
Progress Note: A&P Assessment and Plan (1) Acute respiratory failure with hypoxia: Code(s): J96.01 - Acute respiratory failure with hypoxia Status: Acute Assessment and Plan: Patient with acute respiratory failure secondary to COVID pneumonia. CTA of the chest 12/30 showing no central pulmonary embolus identified (sensitivity limited by motion artifact) and patchy bilateral airspace opacities c/w COVID-19 pneumonia. Oxygen requirement worsened requiring intubation on 01/13 despite aggressive medical treatment. She remains intubated and sedated but now requiring paralytics and Flolan. Proning patient as she tolerates. PEG and trach was being planned but on hold. Wean Flolan as tolerated. Family has been made aware of the severity of the patient's illness. Lasix with good UOP; monitor BP and renal function closely. Appreciate health information director input. (2) Anemia: Code(s): D64.9 - Anemia, unspecified Status: Acute Assessment and Plan: Hgb normal on admission but has trended down slowly to the 7-8 range since 01/23/21 but stable. Hgb did drop to 6.5 on 02/06. No evidence of acute blood loss. One unit ordered of PRBCs. Repeat HH stable in the 8-9 range and actually up to 10 today. Continue to monitor closely and transfuse as needed. Continue Protonix. (3) Shock: Code(s): R57.9 - Shock, unspecified Status: Acute Assessment and Plan: Patient became hypotensive on 01/14 related to sedation and hypovolemia requiring Levophed and IV fluids. BCx 01/10 negative. UCx 01/22 growing Proteus and Enterococcus treated with Rocephin and Vanco. Was having recurrent fevers and also hypothermic. Patient was re-cultured 01/29 and broad spectrum abx started. BCx and UCx negative 01/29. Sputum Cx 02/03 growing Klebsiella relatively forman-sensitive and Yeast. BP soft 02/05 requiring Hespan. She has required Levophed off/on due to fluid status and/or infections etiology and last used Levophed 02/06. BP was soft related to the anemiabut BP better today. Continue IV abx Day 14. Stop abx? (4) Pneumothorax on right: Onset Date: ~01/14/21 Code(s): J93.9 - Pneumothorax, unspecified Status: Acute Assessment and Plan: Patient with PTX on the right with CT in place. CXR 02/08 showing recurrent right PTX so a second chest tube added. Chest tube management per health information director. Continue daily CXR. (5) Tongue swelling: Code(s): R22.0 - Localized swelling, mass and lump, head Status: Acute Assessment and Plan: Thought tongue edema related to allergic reaction. Solu-Medrol, Benadryl and Pepcid started. Tongue edema better. Continue current mouth care plan. WBC was up to 27K felt related to the steroids. Steroids and Benadryl have been stopped now. (6) Pneumomediastinum: Code(s): J98.2 - Interstitial emphysema Status: Acute Assessment and Plan: Patient had evidence of pneumomediastinum by CXR with SQ crepitus. Serial CXR showing that most of the pneumomediastinum has resolved. SQ emphysema no longer present. Monitor closely. Continue daily CXR. (7) Pneumonia due to COVID-19 virus: Code(s): U07.1 - COVID-19; J12.82 - Pneumonia due to coronavirus disease 2019 Status: Acute Assessment and Plan: Patient did not receive a COVID vaccination. She was exposed to an individual who was COVID positive. She did come in on hydroxychloroquine, zinc, vitamin-C and D from home. She began to have symptoms around 12/24/20. She was COVID positive (rapid) on 12/25/20 when in the ED. Returned to ED on 12/30 for worsening symptoms and was admitted. She has since completed Remdesivir, Dexamethasone and Baricitinib. Convalescent plasma given 01/04/21. Vit C,D, and zinc were ordered. Lasix IV given intermittently. Completed a course of Azithromycin as well. demanded that his be treated with Solu-Medrol, Vit C and Ivermectin. Explained that Ivermectin was not standard of c
[2021-02-11 18:00] LABS: Glucose Point of Care 127 mg/dl (65-105)
[2021-02-12] VITALS (66 sets, daily range): BP systolic 82–143; BP diastolic 35–74; PULSE 83–129; RESP 28–32; TEMP 36.3–37.6; O2SAT 90–96
[2021-02-12] MEDS: PROPOFOL IV EMULSION 100 ML 22.41 MG IV CONT ×2 (00:12→05:09)
[2021-02-12 00:20] LABS: Glucose Point of Care 109 mg/dl (65-105)
[2021-02-12] MEDS: EPOPROSTENOL SODIUM 0.5 MG VIAL INHALATION ×4 (02:35→20:34)
[2021-02-12] MEDS: MIDAZOLAM 100MG/NS 100ML(*CRX) 100 MG/100 ML BAG 10 MG IV CONT ×3 (03:42→21:37)
[2021-02-12 04:15] LABS: Hematocrit 31.3 % (37.0-47.0); Hemoglobin 9.6 g/dL (12.0-15.0); Mean Corpuscular HGB Conc 30.7 g/dl (32-36); Mean Corpuscular Hemoglobin 28.7 pg (26-34); Mean Corpuscular Volume 93.7 fl (80-100); Mean Platelet Volume 9.2 fl (7.4-10.4); Platelet Count Result 598 k/mm3 (150-375); Red Blood Count 3.34 M/mm3 (4.2-5.4); Red Cell Distribution Width 16.9 % (11.5-14.5); White Blood Count 23.1 K/mm3 (4.5-10.0)
[2021-02-12 04:33] LABS: Alanine Aminotransferase 127 U/L (4-35); Albumin Level 2.8 g/dL (3.5-5.1); Alkaline Phosphatase 136 U/L (38-126); Aspartate Amino Transferase 35 U/L (14-36); Bilirubin,Total 0.4 mg/dL (0.2-1.3); Blood Urea Nitrogen 25 mg/dL (7-17); Calcium 8.6 mg/dL (8.4-10.2); Carbon Dioxide > 40 mmol/L (22-30); Chloride 89 mmol/L (98-107); Estimated CRCL calculation 153 ml/min; Estimated Glomerular Filt Rate > 60; Glucose 105 mg/dL (65-110); Magnesium 1.7 mg/dL (1.6-2.3); Potassium 3.2 mmol/L (3.4-5.0); Sodium 138 mmol/L (137-145)
[2021-02-12 04:47] LABS: Alveolar/Arterial O2 Gradient 429.8 mmHg; Base Excess ABG 16.9 mEq/l (+/-2.0); Carboxyhemoglobin 0.1 % THb (0-2.0); Fractional Inspired Oxygen 80 %; HCO3 ABG 43.6 mEq/l (22.0-26.0); Methemoglobin ABG 0.4 %THb (0-1.5); Oxygen Content ABG 14.6 %vol (16.0-22.0); Oxyhemoglobin 93.3 % THb (90.0-100.0); PO2 ABG 73.7 mmHg (80.0-100.0); PO2 FiO2 Ratio Arterial Blood 0.92 %; Reduced Hemoglobin 6.2 %THb (0-5.0); Total Hemoglobin 11.1 g/dL (12.0-18.0); pH ABG 7.453 (7.350-7.450)
[2021-02-12 04:48] LABS: Device VENTILATOR; Modified Allen's Test Pass; PCO2 ABG 63.7 mmHg (35.0-45.0); Site Drawn LEFT RADIAL
[2021-02-12 04:49] LABS: Arterial Blood Gas PEEP 10 cmH2O; Arterial Blood Gas Vent Mode PRESSURE CONTROL; Arterial Blood Gas Ventilator rate 32 /MIN; Peak Inspiratory Pressure 38 cmH2O
[2021-02-12] MEDS: CENTRAL LINE FLUSH 10 ML IV PUSH ×3 (05:12→20:10)
[2021-02-12] MEDS: FENTANYL 2,500MCG/NS250ML(*CRX 2,500 MCG/250 ML BAG 20 MCG IV CONT ×2 (06:28→18:01)
--- NOTE | 2021-02-12 09:19 | WPDINTPN ---
Progress Note: A&P Assessment and Plan (1) Acute respiratory failure with hypoxia: Code(s): J96.01 - Acute respiratory failure with hypoxia Status: Acute Assessment and Plan: Acute hypoxic respiratory failure secondary to COVID-19 pneumonia. Over the course she has developed increasing oxygen requirements, transferred to the ICU on 01/12/2021 -was on BiPAP 12/ and 100%. Intubated 01/13 -[facility] was called twice for consideration for ECMO but they did not feel patient was candidate for ECMO -02/08/2021: Patient dislodged her ETT while being placed in the prone position. Dropped his saturations, patient had to be intubated with a 6.5 ETT due to significant swelling of the tongue. Also started on Flolan due to her decreased O2 sats. -ABG reviewed - currently on pressure control ventilation with rate at 32 PEEP 10 and 80% FiO2. Will continue to wean FiO2 as tolerated, decrease respiratory rate to 28 -chest x-ray done today was reviewed and shows stable diffuse lung disease and no residual pneumothorax -on inhaled Flolan -continue bronchodilators and Pulmicort -01/23/2021, sputum cultures grew normal macario , 02/03/2021: Sputum cultures growing Klebsiella pneumoniae, forman sensitive, on imipenem, started on 01/29/2021. -she will complete a 14 day course of antibiotics which will be discontinued today -patient's respiratory failure management has always been limited by high Peak pressures which was being managed with permissive hypercapnia. Over time her lungs have stiffened and the pressures have worsened. Patient is heavily sedated with fentanyl, Versed, propofol infusion and is on rocuronium infusion for neuromuscular blockade. Patient was switched to PCV mode of ventilation -patient was proned daily earlier in the course but lately patient has not tolerated prone ventilation. A last 2 episodes patient became tachycardic, hypotensive with significant increase in pressure and drop in her ventilation on Proning -good response to Lasix 02/11 but will hold Lasix today due to soft blood pressure (2) Pneumonia due to COVID-19 virus: Code(s): U07.1 - COVID-19; J12.82 - Pneumonia due to coronavirus disease 2019 Status: Acute Assessment and Plan: Patient tested positive for COVID on 12/25/2020. Patient is unvaccinated -she is status post course of Remdesivir, dexamethasone -status post a course of azithromycin and ceftriaxone on admission - completed a course of Baricitinib for 14 days -also completed a long course of Solu-Medrol which was later discontinued as patient developed UTI and bacterial pneumonia. Now she is on a course of Solu-Medrol secondary to tongue swelling -patient was on vitamin-C, vitamin-D and zinc for more than 2 weeks -at home patient was also taking hydroxychloroquine -upon admission to the ICU, patient's was demanding to start method of ivermectin, prednisolone, nitazoxanide, fluvoxamine, cyproheptadine, famotidine, discussed with the in details and explained to him that the is no appropriate and evidence behind usage of these medications in patients with COVID-19. -patient's continues to request treatment with Ivermactin, increased doses of budesonide, steroids based on information he has obtained from Internet. We have had several discussions with patient's regarding lack of evidence behind benefit of ivermectin and possible side effects but we have been unable to convince him.. -initially on admission to ICU I did offer patient's that I would be willing to transfer patient to a facility that uses his requested MATH+ protocol for treatment of COVID if he knows any since I am not aware of any facility in [facility] which she uses ivermectin and math+ protocol for treatment of COVID. -I did call [facility] for evaluation for candidacy for ECMO when patient was intubated but I was told patient did not meet their criteria -continue airborne, droplet, contact isolation
[2021-02-12] MEDS: PROPOFOL IV EMULSION 100 ML 15.69 MG IV CONT ×3 (09:39→21:38)
[2021-02-12] MEDS: ENOXAPARIN 40 MG/0.4 ML SYRINGE SUB-Q (09:41)
[2021-02-12] MEDS: MINERAL OIL/WHITE PETROLATUM OINTMENT 1 APPLIC EACH EYE ×2 (09:41→20:07)
[2021-02-12] MEDS: SACCHAROMYCES BOULARDII 250 MG CAPSULE PO ×2 (09:42→17:44)
[2021-02-12] MEDS: PANTOPRAZOLE SODIUM IV 40 MG VIAL IV PUSH ×2 (09:42→20:07)
--- NOTE | 2021-02-12 10:14 | PM.IMPN ---
Progress Note: A&P Assessment and Plan (1) Acute respiratory failure with hypoxia: Code(s): J96.01 - Acute respiratory failure with hypoxia Status: Acute Assessment and Plan: Patient with acute respiratory failure secondary to COVID pneumonia. CTA of the chest 12/30 showing no central pulmonary embolus identified (sensitivity limited by motion artifact) and patchy bilateral airspace opacities c/w COVID-19 pneumonia. Oxygen requirement worsened requiring intubation on 01/13 despite aggressive medical treatment. She remains intubated and sedated but now requiring paralytics and Flolan. PEG and trach was being planned but on hold. Wean Flolan as tolerated. Family has been made aware of the severity of the patient's illness. Lasix with good UOP but now stopped due to soft BP. Appreciate cigar patcher input. Discussed (2) Anemia: Code(s): D64.9 - Anemia, unspecified Status: Acute Assessment and Plan: Hgb normal on admission but has trended down slowly to the 7-8 range since 01/23/21 but stable. Hgb did drop to 6.5 on 02/06. No evidence of acute blood loss. One unit ordered of PRBCs. Repeat HH stable and up to 9-10 range. Continue to monitor closely and transfuse as needed. Continue Protonix. (3) Shock: Code(s): R57.9 - Shock, unspecified Status: Acute Assessment and Plan: Patient became hypotensive on 01/14 related to sedation and hypovolemia requiring Levophed and IV fluids. BCx 01/10 negative. UCx 01/22 growing Proteus and Enterococcus treated with Rocephin and Vanco. Was having recurrent fevers and also hypothermic. Patient was re-cultured 01/29 and broad spectrum abx started. BCx and UCx negative 01/29. Sputum Cx 02/03 growing Klebsiella relatively forman-sensitive and Yeast. BP soft 02/05 requiring Hespan. She has required Levophed off/on due to fluid status and/or infections etiology and last used Levophed 02/06. BP still soft at times but was able to tolerate the Lasix yesterday. Remains on IV abx with plans to stop today since she has completed 14 days. (4) Pneumothorax on right: Onset Date: ~01/14/21 Code(s): J93.9 - Pneumothorax, unspecified Status: Acute Assessment and Plan: Patient with PTX on the right with CT in place. CXR 02/08 showing recurrent right PTX so a second chest tube added. Chest tube management per cigar patcher. Continue daily CXR. (5) Tongue swelling: Code(s): R22.0 - Localized swelling, mass and lump, head Status: Acute Assessment and Plan: Thought tongue edema related to allergic reaction. Solu-Medrol, Benadryl and Pepcid started. Tongue edema better. Continue current mouth care plan. WBC was up to 27K felt related to the steroids but better today since the steroids stopped. (6) Pneumomediastinum: Code(s): J98.2 - Interstitial emphysema Status: Acute Assessment and Plan: Patient had evidence of pneumomediastinum by CXR with SQ crepitus. Serial CXR showing that most of the pneumomediastinum has resolved. SQ emphysema no longer present. Monitor closely. Continue daily CXR. (7) Pneumonia due to COVID-19 virus: Code(s): U07.1 - COVID-19; J12.82 - Pneumonia due to coronavirus disease 2019 Status: Acute Assessment and Plan: Patient did not receive a COVID vaccination. She was exposed to an individual who was COVID positive. She did come in on hydroxychloroquine, zinc, vitamin-C and D from home. She began to have symptoms around 12/24/20. She was COVID positive (rapid) on 12/25/20 when in the ED. Returned to ED on 12/30 for worsening symptoms and was admitted. She has since completed Remdesivir, Dexamethasone and Baricitinib. Convalescent plasma given 01/04/21. Vit C,D, and zinc were ordered. Lasix IV given intermittently. Completed a course of Azithromycin as well. demanded that his be treated with Solu-Medrol, Vit C and Ivermectin. Explained that Ivermectin was not standard of care
--- NOTE | 2021-02-12 11:12 | PCDIET ---
ICU Rounding Note: Patient tolerating Vital 1.2 at 50mL/hr goal rate with 30mL water flush every 4 hours. Last recorded weight is 83kg which is stable with last review. Bowel Motility: 50mL documented in FMS on 02/11/21. Labs Reviewed: WBC (23.1), RBC (3.34), Hgb (9.6), Hct (31.3), BUN (25), Cr (0.3), K (3.2), Alb (2.8) Meds Noted: Flolan, Fentanyl, Lasix, KCl, Versed, Zemuron, Florastor, Propofol (rate of 22.41mL/hr provides 591kcal per day) Additional Notes: Left cheek abrasion. Groin macerated. RN also reports area surrounding FMS. Following daily in ICU rounds. Assessing/reassessing every Tuesday/Tuesday.
[2021-02-12] MEDS: POTASSIUM CHLORIDE 20 MEQ PACKET (FOR LIQUID) 40 MEQ FEED TUBE ×2 (12:09→17:44)
[2021-02-12 12:22] LABS: Glucose Point of Care 100 mg/dl (65-105)
[2021-02-12] MEDS: NOREPINEPHRINE 8 MG/D5W 250 ML 8 MG/250 ML BAG 9.38 MG IV CONT (12:50)
[2021-02-12] MEDS: METOPROLOL TARTRATE INJ 5 MG/5 ML VIAL IV PUSH ×2 (17:45→23:27)
[2021-02-12 18:13] LABS: Glucose Point of Care 120 mg/dl (65-105)
[2021-02-12 23:27] LABS: Glucose Point of Care 145 mg/dl (65-105)
[2021-02-13] VITALS (65 sets, daily range): BP systolic 89–166; BP diastolic 44–95; PULSE 105–133; RESP 28–30; TEMP 37.1–37.6; O2SAT 90–94
[2021-02-13] MEDS: EPOPROSTENOL SODIUM 0.5 MG VIAL INHALATION ×4 (02:41→20:12)
[2021-02-13] MEDS: PROPOFOL IV EMULSION 100 ML 15.69 MG IV CONT ×2 (03:16→08:49)
[2021-02-13] MEDS: CENTRAL LINE FLUSH 10 ML IV PUSH ×3 (04:45→20:11)
[2021-02-13 05:10] LABS: Alveolar/Arterial O2 Gradient 398.8 mmHg; Base Excess ABG 14.5 mEq/l (+/-2.0); Carboxyhemoglobin 0.4 % THb (0-2.0); Fractional Inspired Oxygen 75 %; HCO3 ABG 41.5 mEq/l (22.0-26.0); Methemoglobin ABG 0.4 %THb (0-1.5); Oxygen Content ABG 13.5 %vol (16.0-22.0); Oxygen Saturation ABG 92.1 % (95.0-100.0); Oxyhemoglobin 91.2 % THb (90.0-100.0); PO2 ABG 64.8 mmHg (80.0-100.0); PO2 FiO2 Ratio Arterial Blood 0.86 %; Total Hemoglobin 10.5 g/dL (12.0-18.0)
[2021-02-13 05:11] LABS: Device VENTILATOR; Modified Allen's Test Pass; Site Drawn LEFT RADIAL
[2021-02-13 05:12] LABS: Arterial Blood Gas PEEP 10 cmH2O; Arterial Blood Gas Pressure Support 38 cmH2O; Arterial Blood Gas Vent Mode PRESSURE CONTROL; Arterial Blood Gas Ventilator rate 28 /MIN
[2021-02-13 06:26] LABS: Hemoglobin 9.1 g/dL (12.0-15.0); Mean Corpuscular HGB Conc 31.4 g/dl (32-36); Mean Corpuscular Hemoglobin 28.8 pg (26-34); Mean Corpuscular Volume 91.8 fl (80-100); Mean Platelet Volume 9.6 fl (7.4-10.4); Platelet Count Result 567 k/mm3 (150-375); Red Blood Count 3.16 M/mm3 (4.2-5.4); Red Cell Distribution Width 17.1 % (11.5-14.5); White Blood Count 23.9 K/mm3 (4.5-10.0)
[2021-02-13 06:50] LABS: Alanine Aminotransferase 104 U/L (4-35); Albumin Level 2.6 g/dL (3.5-5.1); Alkaline Phosphatase 130 U/L (38-126); Aspartate Amino Transferase 32 U/L (14-36); Bilirubin,Total 0.4 mg/dL (0.2-1.3); Blood Urea Nitrogen 21 mg/dL (7-17); Calcium 8.6 mg/dL (8.4-10.2); Carbon Dioxide > 40 mmol/L (22-30); Chloride 92 mmol/L (98-107); Estimated CRCL calculation 120 ml/min; Estimated Glomerular Filt Rate > 60; Glucose 112 mg/dL (65-110); Magnesium 1.6 mg/dL (1.6-2.3); Potassium 4.4 mmol/L (3.4-5.0); Sodium 137 mmol/L (137-145)
[2021-02-13] MEDS: MIDAZOLAM 100MG/NS 100ML(*CRX) 100 MG/100 ML BAG 10 MG IV CONT ×2 (07:58→17:21)
[2021-02-13] MEDS: FENTANYL 2,500MCG/NS250ML(*CRX 2,500 MCG/250 ML BAG 20 MCG IV CONT ×2 (07:59→20:00)
[2021-02-13] MEDS: MINERAL OIL/WHITE PETROLATUM OINTMENT 1 APPLIC EACH EYE ×2 (08:06→20:10)
[2021-02-13] MEDS: PANTOPRAZOLE SODIUM IV 40 MG VIAL IV PUSH ×2 (08:07→20:11)
[2021-02-13] MEDS: ENOXAPARIN 40 MG/0.4 ML SYRINGE SUB-Q (08:07)
[2021-02-13] MEDS: SACCHAROMYCES BOULARDII 250 MG CAPSULE PO ×2 (08:08→17:49)
--- NOTE | 2021-02-13 09:51 | WPDINTPN ---
Progress Note: A&P Assessment and Plan (1) Acute respiratory failure with hypoxia: Code(s): J96.01 - Acute respiratory failure with hypoxia Status: Acute Assessment and Plan: Acute hypoxic respiratory failure secondary to COVID-19 pneumonia. Over the course she has developed increasing oxygen requirements, transferred to the ICU on 01/12/2021 -was on BiPAP 12/ and 100%. Intubated 01/13 -[facility] was called twice for consideration for ECMO but they did not feel patient was candidate for ECMO -02/08/2021: Patient dislodged her ETT while being placed in the prone position. Dropped his saturations, patient had to be intubated with a 6.5 ETT due to significant swelling of the tongue. Also started on Flolan due to her decreased O2 sats. -ABG reviewed - currently on pressure control ventilation with rate at 28 PEEP 10 and 75% FiO2. Will continue to wean FiO2 as tolerated, decreased pressure control to 35 -chest x-ray done today was reviewed and shows stable diffuse lung disease and no residual pneumothorax -on inhaled Flolan -continue bronchodilators and Pulmicort -01/23/2021, sputum cultures grew normal macario , 02/03/2021: Sputum cultures growing Klebsiella pneumoniae, forman sensitive, on imipenem, started on 01/29/2021. -she will complete a 14 day course of antibiotics 02/11 -patient's respiratory failure management has always been limited by high Peak pressures which was being managed with permissive hypercapnia. Over time her lungs have stiffened and the pressures have worsened. Patient is heavily sedated with fentanyl, Versed, propofol infusion and is on rocuronium infusion for neuromuscular blockade. Patient was switched to PCV mode of ventilation -patient was proned daily earlier in the course but lately patient has not tolerated prone ventilation. A last 2 episodes patient became tachycardic, hypotensive with significant increase in pressure and drop in her ventilation on Proning -good response to Lasix 02/11 . Since patient is off of Levophed will continue diuresis as tolerated by blood pressure (2) Pneumonia due to COVID-19 virus: Code(s): U07.1 - COVID-19; J12.82 - Pneumonia due to coronavirus disease 2019 Status: Acute Assessment and Plan: Patient tested positive for COVID on 12/25/2020. Patient is unvaccinated -she is status post course of Remdesivir, dexamethasone -status post a course of azithromycin and ceftriaxone on admission - completed a course of Baricitinib for 14 days -also completed a long course of Solu-Medrol which was later discontinued as patient developed UTI and bacterial pneumonia. Now she is on a course of Solu-Medrol secondary to tongue swelling -patient was on vitamin-C, vitamin-D and zinc for more than 2 weeks -at home patient was also taking hydroxychloroquine -upon admission to the ICU, patient's was demanding to start method of ivermectin, prednisolone, nitazoxanide, fluvoxamine, cyproheptadine, famotidine, discussed with the in details and explained to him that the is no appropriate and evidence behind usage of these medications in patients with COVID-19. -patient's continues to request treatment with Ivermactin, increased doses of budesonide, steroids based on information he has obtained from Internet. We have had several discussions with patient's regarding lack of evidence behind benefit of ivermectin and possible side effects but we have been unable to convince him.. -initially on admission to ICU I did offer patient's that I would be willing to transfer patient to a facility that uses his requested MATH+ protocol for treatment of COVID if he knows any since I am not aware of any facility in [facility] which she uses ivermectin and math+ protocol for treatment of COVID. -I did call [facility] for evaluation for candidacy for ECMO when patient was intubated but I was told patient did not meet their criteria -continue airborne, droplet, conta
[2021-02-13] MEDS: FUROSEMIDE INJ 40 MG/4 ML VIAL IV PUSH (09:53)
[2021-02-13] MEDS: MAGNESIUM SULF 2 GM/WATER 50ML 2 GM/50 ML BAG IVPB (09:54)
[2021-02-13] MEDS: METOPROLOL TARTRATE INJ 5 MG/5 ML VIAL IV PUSH ×2 (09:54→15:59)
--- NOTE | 2021-02-13 11:13 | PCDIET ---
Nutrition Follow-Up Complete: Nutrition Diagnosis: Suboptimal oral intake related to COVID as evidenced by average intake of 65% of recorded meals over last week with inability to eat breakfast today. Nutrition Goal: Patient to meet estimated nutritional needs. Goal met. Patient tolerating Vital 1.2 at 50mL/hr with 30mL water flush every 4 hours. Last recorded weight is 83.9 kg which is increased from last review. Bowel Motility: 400mL via FMS thus far today. Labs Reviewed: WBC (23.9), RBC (3.16), Hgb (9.1), Hct (29.0), Glu (112), BUN (21), Cr (0.4) Meds Noted: Flolan, Fentanyl, Lopressor, Versed, Protonix, Propofol (rate of 15.69mL/hr provides 414kcal per day), Zemuron, Florastor, Lasix, Magnesium Sulfate Additional Notes: No documented skin changes. Will continue to monitor with same goal. Nutrition Monitoring and Evaluation: Follow up every Tuesday/Tuesday.
[2021-02-13 12:37] LABS: Glucose Point of Care 135 mg/dl (65-105)
[2021-02-13] MEDS: PROPOFOL IV EMULSION 100 ML 17.93 MG IV CONT (15:51)
--- NOTE | 2021-02-13 17:00 | PM.IMPN ---
Progress Note: A&P Assessment and Plan (1) Acute respiratory failure with hypoxia: Code(s): J96.01 - Acute respiratory failure with hypoxia Status: Acute Assessment and Plan: Patient with acute respiratory failure secondary to COVID pneumonia. CTA of the chest 12/30 showing no central pulmonary embolus identified (sensitivity limited by motion artifact) and patchy bilateral airspace opacities c/w COVID-19 pneumonia. Oxygen requirement worsened requiring intubation on 01/13 despite aggressive medical treatment. She remains intubated and sedated but now requiring paralytics and Flolan. PEG and trach was being planned but on hold. Wean Flolan as tolerated. Family has been made aware of the severity of the patient's illness. Intermittent Lasix as she toelrates. Appreciate pantograph transferrer input. (2) Anemia: Code(s): D64.9 - Anemia, unspecified Status: Acute Assessment and Plan: Hgb normal on admission but has trended down slowly to the 7-8 range since 01/23/21 but stable. Hgb did drop to 6.5 on 02/06. No evidence of acute blood loss. One unit ordered of PRBCs. Repeat HH stable and up to 9-10 range. Continue to monitor closely and transfuse as needed. Continue Protonix. (3) Shock: Code(s): R57.9 - Shock, unspecified Status: Acute Assessment and Plan: Patient became hypotensive on 01/14 related to sedation and hypovolemia requiring Levophed and IV fluids. BCx 01/10 negative. UCx 01/22 growing Proteus and Enterococcus treated with Rocephin and Vanco. Was having recurrent fevers and also hypothermic. Patient was re-cultured 01/29 and broad spectrum abx started. BCx and UCx negative 01/29. Sputum Cx 02/03 growing Klebsiella relatively forman-sensitive and Yeast. BP soft 02/05 requiring Hespan. She completed 14 days on abx on 02/12. Still requiring Levophed off/on due to fluid status and/or infections etiology. (4) Pneumothorax on right: Onset Date: ~01/14/21 Code(s): J93.9 - Pneumothorax, unspecified Status: Acute Assessment and Plan: Patient with PTX on the right with CT in place. CXR 02/08 showing recurrent right PTX so a second chest tube added. Chest tube management per pantograph transferrer. Continue daily CXR. (5) Tongue swelling: Code(s): R22.0 - Localized swelling, mass and lump, head Status: Acute Assessment and Plan: Thought tongue edema related to allergic reaction so Solu-Medrol, Benadryl and Pepcid were started. Tongue edema better. Continue current mouth care plan. These medications have since been stopped. (6) Pneumomediastinum: Code(s): J98.2 - Interstitial emphysema Status: Acute Assessment and Plan: Patient had evidence of pneumomediastinum by CXR with SQ crepitus. Serial CXR showing that most of the pneumomediastinum has resolved. SQ emphysema no longer present. Monitor closely. Continue daily CXR. (7) Pneumonia due to COVID-19 virus: Code(s): U07.1 - COVID-19; J12.82 - Pneumonia due to coronavirus disease 2019 Status: Acute Assessment and Plan: Patient did not receive a COVID vaccination. She was exposed to an individual who was COVID positive. She did come in on hydroxychloroquine, zinc, vitamin-C and D from home. She began to have symptoms around 12/24/20. She was COVID positive (rapid) on 12/25/20 when in the ED. Returned to ED on 12/30 for worsening symptoms and was admitted. She has since completed Remdesivir, Dexamethasone and Baricitinib. Convalescent plasma given 01/04/21. Vit C,D, and zinc were ordered. Lasix IV given intermittently. Completed a course of Azithromycin as well. demanded that his be treated with Solu-Medrol, Vit C and Ivermectin. Explained that Ivermectin was not standard of care but we did proceed with the other treatment. She was treated with Pulmicort, Vit C/Zinc/Vit D. Solu-Medrol, vitamins and minerals have since been discontinued. has been up dated by the intensi
[2021-02-13] MEDS: PROPOFOL IV EMULSION 100 ML 13.45 MG IV CONT (23:27)
[2021-02-13 23:38] LABS: Glucose Point of Care 134 mg/dl (65-105)
[2021-02-14] VITALS (66 sets, daily range): BP systolic 75–149; BP diastolic 37–82; PULSE 97–132; RESP 24–31; TEMP 36.9–37.9; O2SAT 90–94
[2021-02-14] MEDS: EPOPROSTENOL SODIUM 0.5 MG VIAL INHALATION ×4 (02:34→20:00)
[2021-02-14] MEDS: MIDAZOLAM 100MG/NS 100ML(*CRX) 100 MG/100 ML BAG 10 MG IV CONT ×3 (04:08→23:41)
[2021-02-14] MEDS: METOPROLOL TARTRATE INJ 5 MG/5 ML VIAL IV PUSH (04:10)
[2021-02-14] MEDS: CENTRAL LINE FLUSH 10 ML IV PUSH ×3 (04:48→19:45)
[2021-02-14 05:45] LABS: Alveolar/Arterial O2 Gradient 436.2 mmHg; Base Excess ABG 10.7 mEq/l (+/-2.0); Carboxyhemoglobin 0.5 % THb (0-2.0); Fractional Inspired Oxygen 80 %; HCO3 ABG 37.8 mEq/l (22.0-26.0); Methemoglobin ABG 0.3 %THb (0-1.5); Oxygen Content ABG 13.4 %vol (16.0-22.0); Oxyhemoglobin 90.5 % THb (90.0-100.0); PO2 FiO2 Ratio Arterial Blood 0.82 %; Reduced Hemoglobin 8.7 %THb (0-5.0); Total Hemoglobin 10.5 g/dL (12.0-18.0); pH ABG 7.382 (7.350-7.450)
[2021-02-14 05:46] LABS: Device VENTILATOR; Modified Allen's Test Unable to perform; Site Drawn RIGHT RADIAL
[2021-02-14 05:47] LABS: Arterial Blood Gas PEEP 10 cmH2O; Arterial Blood Gas Vent Mode PRESSURE CONTROL; Arterial Blood Gas Ventilator rate 28 /MIN; Peak Inspiratory Pressure 35 cmH2O
[2021-02-14 06:10] LABS: Hematocrit 30.6 % (37.0-47.0); Hemoglobin 9.4 g/dL (12.0-15.0); Mean Corpuscular HGB Conc 30.7 g/dl (32-36); Mean Corpuscular Hemoglobin 28.7 pg (26-34); Mean Corpuscular Volume 93.6 fl (80-100); Mean Platelet Volume 9.7 fl (7.4-10.4); Platelet Count Result 523 k/mm3 (150-375); Red Blood Count 3.27 M/mm3 (4.2-5.4); Red Cell Distribution Width 17.2 % (11.5-14.5); White Blood Count 27.5 K/mm3 (4.5-10.0)
[2021-02-14] MEDS: PROPOFOL IV EMULSION 100 ML 13.45 MG IV CONT ×3 (06:48→21:06)
[2021-02-14 07:09] LABS: Alanine Aminotransferase 69 U/L (4-35); Albumin Level 2.8 g/dL (3.5-5.1); Alkaline Phosphatase 121 U/L (38-126); Aspartate Amino Transferase 26 U/L (14-36); Bilirubin,Total 0.4 mg/dL (0.2-1.3); Blood Urea Nitrogen 31 mg/dL (7-17); Calcium 8.8 mg/dL (8.4-10.2); Carbon Dioxide > 40 mmol/L (22-30); Chloride 92 mmol/L (98-107); Estimated CRCL calculation 84 ml/min; Estimated Glomerular Filt Rate > 60; Glucose 136 mg/dL (65-110); Magnesium 2.1 mg/dL (1.6-2.3); Potassium 4.5 mmol/L (3.4-5.0); Sodium 137 mmol/L (137-145)
--- NOTE | 2021-02-14 08:43 | WPDINTPN ---
Progress Note: A&P Assessment and Plan (1) Acute respiratory failure with hypoxia: Code(s): J96.01 - Acute respiratory failure with hypoxia Status: Acute Assessment and Plan: Acute hypoxic respiratory failure secondary to COVID-19 pneumonia. Over the course she has developed increasing oxygen requirements, transferred to the ICU on 01/12/2021 -was on BiPAP 12/ and 100%. Intubated 01/13 -[facility] was called twice for consideration for ECMO but they did not feel patient was candidate for ECMO -02/08/2021: Patient dislodged her ETT while being placed in the prone position. Dropped his saturations, patient had to be intubated with a 6.5 ETT due to significant swelling of the tongue. Also started on Flolan due to her decreased O2 sats. -ABG reviewed - currently on pressure control ventilation with rate at 28 PEEP 10 and 75% FiO2. Will continue to wean FiO2 as tolerated, decreased pressure control to 35 - increase PEEP to 12 -chest x-ray done today was reviewed and shows stable diffuse lung disease and no residual pneumothorax -on inhaled Flolan -continue bronchodilators and Pulmicort -01/23/2021, sputum cultures grew normal macario , 02/03/2021: Sputum cultures growing Klebsiella pneumoniae, forman sensitive, on imipenem, started on 01/29/2021. -she will complete a 14 day course of antibiotics 02/11 -patient's respiratory failure management has always been limited by high Peak pressures which was being managed with permissive hypercapnia. Over time her lungs have stiffened and the pressures have worsened. Patient is heavily sedated with fentanyl, Versed, propofol infusion and is on rocuronium infusion for neuromuscular blockade. Patient was switched to PCV mode of ventilation -patient was proned daily earlier in the course but lately patient has not tolerated prone ventilation. A last 2 episodes patient became tachycardic, hypotensive with significant increase in pressure and drop in her ventilation on Proning -good response to Lasix. Since patient is off of Levophed will continue diuresis as tolerated by blood pressure (2) Pneumonia due to COVID-19 virus: Code(s): U07.1 - COVID-19; J12.82 - Pneumonia due to coronavirus disease 2019 Status: Acute Assessment and Plan: Patient tested positive for COVID on 12/25/2020. Patient is unvaccinated -she is status post course of Remdesivir, dexamethasone -status post a course of azithromycin and ceftriaxone on admission - completed a course of Baricitinib for 14 days -also completed a long course of Solu-Medrol which was later discontinued as patient developed UTI and bacterial pneumonia. Now she is on a course of Solu-Medrol secondary to tongue swelling -patient was on vitamin-C, vitamin-D and zinc for more than 2 weeks -at home patient was also taking hydroxychloroquine -upon admission to the ICU, patient's was demanding to start method of ivermectin, prednisolone, nitazoxanide, fluvoxamine, cyproheptadine, famotidine, discussed with the in details and explained to him that the is no appropriate and evidence behind usage of these medications in patients with COVID-19. -patient's continues to request treatment with Ivermactin, increased doses of budesonide, steroids based on information he has obtained from Internet. We have had several discussions with patient's regarding lack of evidence behind benefit of ivermectin and possible side effects but we have been unable to convince him.. -initially on admission to ICU I did offer patient's that I would be willing to transfer patient to a facility that uses his requested MATH+ protocol for treatment of COVID if he knows any since I am not aware of any facility in [facility] which she uses ivermectin and math+ protocol for treatment of COVID. -I did call [facility] for evaluation for candidacy for ECMO when patient was intubated but I was told patient did not meet their criteria -continue airborn
[2021-02-14] MEDS: FENTANYL 2,500MCG/NS250ML(*CRX 2,500 MCG/250 ML BAG 20 MCG IV CONT ×2 (08:53→21:08)
[2021-02-14] MEDS: ACETAMINOPHEN ELIXIR 325 MG/10.15 ML UDC 650 MG FEED TUBE ×2 (08:55→23:43)
[2021-02-14] MEDS: SACCHAROMYCES BOULARDII 250 MG CAPSULE PO (08:56)
[2021-02-14] MEDS: FUROSEMIDE INJ 40 MG/4 ML VIAL IV PUSH (08:56)
[2021-02-14] MEDS: MINERAL OIL/WHITE PETROLATUM OINTMENT 1 APPLIC EACH EYE ×2 (08:57→19:45)
[2021-02-14] MEDS: PANTOPRAZOLE SODIUM IV 40 MG VIAL IV PUSH ×2 (08:57→19:45)
[2021-02-14] MEDS: ENOXAPARIN 40 MG/0.4 ML SYRINGE SUB-Q (08:57)
[2021-02-14] MEDS: NOREPINEPHRINE 8 MG/D5W 250 ML 8 MG/250 ML BAG 9.38 MG IV CONT (12:10)
[2021-02-14 12:23] LABS: Glucose Point of Care 121 mg/dl (65-105)
--- NOTE | 2021-02-14 17:12 | P.PNIM_ITS ---
Progress Note: A&P Assessment and Plan (1) Acute respiratory failure with hypoxia: Code(s): J96.01 - Acute respiratory failure with hypoxia Status: Acute Assessment and Plan: Patient with acute respiratory failure secondary to COVID pneumonia. CTA of the chest 12/30 showing no central pulmonary embolus identified (sensitivity limited by motion artifact) and patchy bilateral airspace opacities c/w COVID-19 pne umonia. Oxygen requirement worsened requiring intubation on 01/13 despite aggressive medical treatment. She remains intubated and sedated but now requiring paralytics and Flolan. PEG and trach was being planned but on hold. Wean Flolan as tolerated. Family has been made aware of the severity of the patient's illness. Intermittent Lasix as she toelrates. Appreciate eligibility services representative input. (2) Anemia: Code(s): D64.9 - Anemia, unspecified Status: Acute Assessment and Plan: Hgb normal on admission but has trended down slowly to the 7-8 range since 01/23/21 but stable. Hgb did drop to 6.5 on 02/06. No evidence of acute blood loss. One unit ordered of PRBCs. Repeat HH stable and up to 9-10 range. Continue to monitor closely and transfuse as needed. Continue Protonix. (3) Shock: Code(s): R57.9 - Shock, unspecified Status: Acute Assessment and Plan: Patient became hypotensive on 01/14 related to sedation and hypovolemia requiring Levophed and IV fluids. BCx 01/10 negative. UCx 01/22 growing Proteus and Enterococcus treated with Rocephin and Vanco. Was having recurrent fevers and also hypothermic. Patient was re-cultured 01/29 and broad spectrum abx started. BCx and UCx negative 01/29. Sputum Cx 02/03 growing Klebsiella relatively forman- sensitive and Yeast. BP soft 02/05 requiring Hespan. She completed 14 days on abx on 02/12. Still requiring Levophed off/on due to fluid status and/or infections etiology. (4) Pneumothorax on right: Onset Date: ~01/14/21 Code(s): J93.9 - Pneumothorax, unspecified Status: Acute Assessment and Plan: Patient with PTX on the right with CT in place. CXR 02/08 showing recurrent right PTX so a second chest tube added. Chest tube management per eligibility services representative. Continue daily CXR. (5) Tongue swelling: Code(s): R22.0 - Localized swelling, mass and lump, head Status: Acute Assessment and Plan: Thought tongue edema related to allergic reaction so Solu-Medrol, Benadryl and Pepcid were started. Tongue edema better. Continue current mouth care plan. These medications have since been stopped. (6) Pneumomediastinum: Code(s): J98.2 - Interstitial emphysema Status: Acute Assessment and Plan: Patient had evidence of pneumomediastinum by CXR with SQ crepitus. Serial CXR showing that most of the pneumomediastinum has resolved. SQ emphysema no longer present. Monitor closely. Continue daily CXR. (7) Pneumonia due to COVID-19 virus: Code(s): U07.1 - COVID-19; J12.82 - Pneumonia due to coronavirus disease 2019 Status: Acute Assessment and Plan: Patient did not receive a COVID vaccination. She was exposed to an individual who was COVID positive. She did come in on hydroxychloroquine, zinc, vitamin-C and D from home. She began to have symptoms around 12/24/20. She was COVID positive (rapid) on 12/25/20 when in the ED. Returned to ED on 12/30 for worsening symptoms and was admitted. She has since completed Remdesivir, Dexamethasone and Baricitinib. Convalescent plasma given 01/04/21. Vit C,D, and zinc were ordered. Lasix IV given intermittently. Completed a course of Azithromycin as well. Hus
[2021-02-14 17:14] LABS: Hematocrit 28.2 % (37.0-47.0); Hemoglobin 8.6 g/dL (12.0-15.0); Mean Corpuscular HGB Conc 30.5 g/dl (32-36); Mean Corpuscular Hemoglobin 28.5 pg (26-34); Mean Corpuscular Volume 93.4 fl (80-100); Mean Platelet Volume 9.3 fl (7.4-10.4); Platelet Count Result 512 k/mm3 (150-375); Red Blood Count 3.02 M/mm3 (4.2-5.4); Red Cell Distribution Width 17.2 % (11.5-14.5); White Blood Count 33.4 K/mm3 (4.5-10.0)
[2021-02-14 17:20] LABS: Glucose Point of Care 146 mg/dl (65-105)
[2021-02-14 23:51] LABS: Glucose Point of Care 125 mg/dl (65-105)
[2021-02-15] VITALS (71 sets, daily range): BP systolic 59–155; BP diastolic 41–71; PULSE 115–142; RESP 28; TEMP 37–38.3; O2SAT 76–94
[2021-02-15] MEDS: EPOPROSTENOL SODIUM 0.5 MG VIAL INHALATION ×4 (01:33→18:54)
[2021-02-15] MEDS: METOPROLOL TARTRATE INJ 5 MG/5 ML VIAL IV PUSH (02:46)
[2021-02-15] MEDS: NOREPINEPHRINE 8 MG/D5W 250 ML 8 MG/250 ML BAG 20.63 MG IV CONT (03:38)
[2021-02-15 04:54] LABS: Alveolar/Arterial O2 Gradient 558.7 mmHg; Base Excess ABG 13.2 mEq/l (+/-2.0); Carboxyhemoglobin 0.4 % THb (0-2.0); Fractional Inspired Oxygen 100 %; HCO3 ABG 41.4 mEq/l (22.0-26.0); Methemoglobin ABG 0.5 %THb (0-1.5); Oxygen Content ABG 13.4 %vol (16.0-22.0); Oxygen Saturation ABG 93.9 % (95.0-100.0); Oxyhemoglobin 92.9 % THb (90.0-100.0); PO2 ABG 76.5 mmHg (80.0-100.0); PO2 FiO2 Ratio Arterial Blood 0.76 %; Reduced Hemoglobin 6.2 %THb (0-5.0); Total Hemoglobin 10.2 g/dL (12.0-18.0); pH ABG 7.344 (7.350-7.450)
[2021-02-15 04:55] LABS: Modified Allen's Test Pass; PCO2 ABG 77.8 mmHg (35.0-45.0); Site Drawn LEFT RADIAL
[2021-02-15 04:56] LABS: Arterial Blood Gas Vent Mode PRESSURE CONTROL; Arterial Blood Gas Ventilator rate 28 /MIN; Device VENTILATOR
[2021-02-15 04:57] LABS: Arterial Blood Gas PEEP 12 cmH2O; Arterial Blood Gas Pressure Support 35 cmH2O
[2021-02-15] MEDS: PROPOFOL IV EMULSION 100 ML 13.45 MG IV CONT ×3 (05:07→19:42)
[2021-02-15] MEDS: CENTRAL LINE FLUSH 10 ML IV PUSH ×3 (05:14→21:22)
[2021-02-15 06:45] LABS: Hematocrit 27.7 % (37.0-47.0); Hemoglobin 8.5 g/dL (12.0-15.0); Mean Corpuscular HGB Conc 30.7 g/dl (32-36); Mean Corpuscular Hemoglobin 28.3 pg (26-34); Mean Corpuscular Volume 92.3 fl (80-100); Mean Platelet Volume 9.3 fl (7.4-10.4); Platelet Count Result 529 k/mm3 (150-375); Red Cell Distribution Width 16.8 % (11.5-14.5); White Blood Count 47.9 K/mm3 (4.5-10.0)
[2021-02-15 07:12] LABS: Alanine Aminotransferase 48 U/L (4-35); Albumin Level 2.6 g/dL (3.5-5.1); Alkaline Phosphatase 143 U/L (38-126); Aspartate Amino Transferase 23 U/L (14-36); Bilirubin,Total 0.5 mg/dL (0.2-1.3); Blood Urea Nitrogen 18 mg/dL (7-17); Calcium 8.7 mg/dL (8.4-10.2); Carbon Dioxide > 40 mmol/L (22-30); Chloride 94 mmol/L (98-107); Estimated CRCL calculation 120 ml/min; Estimated Glomerular Filt Rate > 60; Glucose 142 mg/dL (65-110); Magnesium 1.7 mg/dL (1.6-2.3); Potassium 3.5 mmol/L (3.4-5.0); Sodium 139 mmol/L (137-145)
[2021-02-15] MEDS: PANTOPRAZOLE SODIUM IV 40 MG VIAL IV PUSH ×2 (08:05→20:12)
[2021-02-15] MEDS: ACETAMINOPHEN ELIXIR 325 MG/10.15 ML UDC 650 MG FEED TUBE (08:05)
[2021-02-15] MEDS: MINERAL OIL/WHITE PETROLATUM OINTMENT 1 APPLIC EACH EYE ×2 (08:06→20:12)
[2021-02-15] MEDS: FENTANYL 2,500MCG/NS250ML(*CRX 2,500 MCG/250 ML BAG 20 MCG IV CONT ×2 (08:06→20:07)
--- NOTE | 2021-02-15 09:05 | WPDINTPN ---
Progress Note: A&P Assessment and Plan (1) Acute respiratory failure with hypoxia: Code(s): J96.01 - Acute respiratory failure with hypoxia Status: Acute Assessment and Plan: Acute hypoxic respiratory failure secondary to COVID-19 pneumonia. Over the course she has developed increasing oxygen requirements, transferred to the ICU on 01/12/2021 -was on BiPAP 12/6 and 100%. Intubated 01/13 -[facility] was called twice for consideration for ECMO but they did not feel patient was candidate for ECMO -02/08/2021: Patient dislodged her ETT while being placed in the prone position. Dropped his saturations, patient had to be intubated with a 6.5 ETT due to significant swelling of the tongue. Also started on Flolan due to her decreased O2 sats. -ABG reviewed - currently on pressure control ventilation with rate at 28 PEEP 12 and 100% FiO2. -chest x-ray done today was reviewed and shows worsening of lung diseaseand no residual pneumothorax -on inhaled Flolan -continue bronchodilators and Pulmicort -01/23/2021, sputum cultures grew normal macario , 02/03/2021: Sputum cultures growing Klebsiella pneumoniae, forman sensitive, on imipenem, started on 01/29/2021. -she will complete a 14 day course of antibiotics 02/11 -patient's respiratory failure management has always been limited by high Peak pressures which was being managed with permissive hypercapnia. Over time her lungs have stiffened and the pressures have worsened. Patient is heavily sedated with fentanyl, Versed, propofol infusion and is on rocuronium infusion for neuromuscular blockade. Patient was switched to PCV mode of ventilation -patient was proned daily earlier in the course but lately patient has not tolerated prone ventilation. A last 2 episodes patient became tachycardic, hypotensive with significant increase in pressure and drop in her ventilation on Proning - increased FiO2 requirement, worsening chest x-ray, fever an increase in WBC count suggest secondary bacterial pneumonia - hold Lasix as patient is now on vasopressor - repeat sputum and blood cultures - empiric vancomycin and imipenem. Klebsiella on her last sputum culture was sensitive to imipenem (2) Pneumonia due to COVID-19 virus: Code(s): U07.1 - COVID-19; J12.82 - Pneumonia due to coronavirus disease 2019 Status: Acute Assessment and Plan: Patient tested positive for COVID on 12/25/2020. Patient is unvaccinated -she is status post course of Remdesivir, dexamethasone -status post a course of azithromycin and ceftriaxone on admission - completed a course of Baricitinib for 14 days -also completed a long course of Solu-Medrol which was later discontinued as patient developed UTI and bacterial pneumonia. Now she is on a course of Solu-Medrol secondary to tongue swelling -patient was on vitamin-C, vitamin-D and zinc for more than 2 weeks -at home patient was also taking hydroxychloroquine -upon admission to the ICU, patient's was demanding to start method of ivermectin, prednisolone, nitazoxanide, fluvoxamine, cyproheptadine, famotidine, discussed with the in details and explained to him that the is no appropriate and evidence behind usage of these medications in patients with COVID-19. -patient's continues to request treatment with Ivermactin, increased doses of budesonide, steroids based on information he has obtained from Internet. We have had several discussions with patient's regarding lack of evidence behind benefit of ivermectin and possible side effects but we have been unable to convince him.. -initially on admission to ICU I did offer patient's that I would be willing to transfer patient to a facility that uses his requested MATH+ protocol for treatment of COVID if he knows any since I am not aware of any facility in [facility] which she uses ivermectin and math+ protocol for treatment of COVID. -I did call [facility] for evaluation for candidacy for EC
[2021-02-15] MEDS: MIDAZOLAM 100MG/NS 100ML(*CRX) 100 MG/100 ML BAG 10 MG IV CONT ×2 (09:43→19:40)
[2021-02-15] MEDS: POTASSIUM CHLORIDE 20 MEQ PACKET (FOR LIQUID) 40 MEQ FEED TUBE (09:46)
[2021-02-15 09:51] LABS: INR 1.2; Prothrombin Time 14.9 Seconds (11.1-14.7)
[2021-02-15 09:52] LABS: Partial Thromboplastin Time 31.9 SECONDS (22.3-36.8)
[2021-02-15 09:57] LABS: Lactic Acid Reflex 0.7 mmol/L (0.7-2.1)
[2021-02-15 09:58] LABS: Fibrinogen 158 mg/dl (215-510)
[2021-02-15] MEDS: ALBUMIN HUMAN 5% 25 GM/500 ML BTL IV CONT (10:53)
[2021-02-15] MEDS: NOREPINEPHRINE 8 MG/D5W 250 ML 8 MG/250 ML BAG 24.38 MG IV CONT (12:29)
[2021-02-15 12:41] LABS: Glucose Point of Care 131 mg/dl (65-105)
[2021-02-15] MEDS: ALBUMIN HUMAN 25% 25 GM/100 ML 100 ML IVPB (18:24)
[2021-02-15 18:41] LABS: Glucose Point of Care 94 mg/dl (65-105)
[2021-02-15] MEDS: SODIUM BICARBONATE 8.4% 50 MEQ/50 ML SYRINGE 100 MEQ IV PUSH (20:24)
[2021-02-15] MEDS: SODIUM CHLORIDE 0.9% IV 1,000 ML 999 ML IV CONT (20:25)
--- NOTE | 2021-02-15 20:30 | PC.NURSE ---
Dr. Brian was notified of IncreasedHR of 140 and current Levophed of 20mcg as well as decreasing O2Sat. Give 1 L bolus of NS. Give 2amps of bicarb now. ABG post 1 hr, call with results. Start vasopressin, hydrocortisone.
[2021-02-15] MEDS: VASOPRESSIN INJ 100 UNITS in DEXTROSE 5% 95 ML IV CONT (21:11)
[2021-02-15] MEDS: HYDROCORTISONE SODIUM SUCCINATE 100 MG/2 ML VIAL IV PUSH (21:11)
[2021-02-15] MEDS: NOREPINEPHRINE 8 MG/D5W 250 ML 8 MG/250 ML BAG 37.5 MG IV CONT (21:22)
[2021-02-15 21:42] LABS: Alveolar/Arterial O2 Gradient 592.5 mmHg; Base Excess ABG 10.2 mEq/l (+/-2.0); Carboxyhemoglobin 0.5 % THb (0-2.0); Fractional Inspired Oxygen 100 %; HCO3 ABG 36.9 mEq/l (22.0-26.0); Methemoglobin ABG 0.5 %THb (0-1.5); Oxyhemoglobin 87.4 % THb (90.0-100.0); PO2 ABG 54.4 mmHg (80.0-100.0); PO2 FiO2 Ratio Arterial Blood 0.54 %; Reduced Hemoglobin 11.6 %THb (0-5.0); Total Hemoglobin 8.1 g/dL (12.0-18.0); pH ABG 7.365 (7.350-7.450)
[2021-02-15 21:43] LABS: PCO2 ABG 66.1 mmHg (35.0-45.0)
[2021-02-15 21:44] LABS: Device VENTILATOR; Modified Allen's Test Unable to perform; Site Drawn RIGHT RADIAL
[2021-02-15 21:45] LABS: Arterial Blood Gas PEEP 14 cmH2O; Arterial Blood Gas Vent Mode PRESSURE CONTROL; Arterial Blood Gas Ventilator rate 28 /MIN; Peak Inspiratory Pressure 35 cmH2O
--- NOTE | 2021-02-15 21:49 | PC.NURSE ---
Updated Dr. Brian regarding ABG and current vital signs and drip rates. Increase PEEP to 16.
--- NOTE | 2021-02-15 22:06 | PCDIET ---
Richard () updated regarding patient current condition. Richard states that he will update Regina (daughter).
[2021-02-15 23:40] LABS: Glucose Point of Care 132 mg/dl (65-105)
[2021-02-16] VITALS (70 sets, daily range): BP systolic 94–146; BP diastolic 55–78; PULSE 91–128; RESP 28–30; TEMP 36.1–37; O2SAT 88–99
[2021-02-16] MEDS: EPOPROSTENOL SODIUM 0.5 MG VIAL INHALATION ×4 (00:57→18:18)
[2021-02-16] MEDS: PROPOFOL IV EMULSION 100 ML 13.45 MG IV CONT ×4 (02:51→21:45)
[2021-02-16] MEDS: NOREPINEPHRINE 8 MG/D5W 250 ML 8 MG/250 ML BAG 26.25 MG IV CONT (03:46)
[2021-02-16 04:20] LABS: Hematocrit 26.1 % (37.0-47.0); Hemoglobin 7.9 g/dL (12.0-15.0); Mean Corpuscular HGB Conc 30.3 g/dl (32-36); Mean Corpuscular Hemoglobin 29.3 pg (26-34); Mean Corpuscular Volume 96.7 fl (80-100); Mean Platelet Volume 9.7 fl (7.4-10.4); Platelet Count Result 485 k/mm3 (150-375); Red Cell Distribution Width 16.9 % (11.5-14.5)
[2021-02-16 05:01] LABS: Alanine Aminotransferase 48 U/L (4-35); Alkaline Phosphatase 199 U/L (38-126); Aspartate Amino Transferase 38 U/L (14-36); Bilirubin,Total 1.2 mg/dL (0.2-1.3); Blood Urea Nitrogen 12 mg/dL (7-17); Carbon Dioxide > 40 mmol/L (22-30); Chloride 91 mmol/L (98-107); Estimated CRCL calculation 122 ml/min; Estimated Glomerular Filt Rate > 60; Glucose 130 mg/dL (65-110); Magnesium 1.6 mg/dL (1.6-2.3); Potassium 3.7 mmol/L (3.4-5.0); Sodium 141 mmol/L (137-145)
[2021-02-16 05:14] LABS: Alveolar/Arterial O2 Gradient 517.3 mmHg; Base Excess ABG 8.7 mEq/l (+/-2.0); Carboxyhemoglobin 0.5 % THb (0-2.0); Fractional Inspired Oxygen 100 %; HCO3 ABG 37.5 mEq/l (22.0-26.0); Methemoglobin ABG 0.5 %THb (0-1.5); Oxygen Content ABG 12.1 %vol (16.0-22.0); Oxygen Saturation ABG 97.1 % (95.0-100.0); Oxyhemoglobin 96.3 % THb (90.0-100.0); PO2 ABG 111.2 mmHg (80.0-100.0); PO2 FiO2 Ratio Arterial Blood 1.11 %; Reduced Hemoglobin 2.7 %THb (0-5.0); Total Hemoglobin 8.8 g/dL (12.0-18.0)
[2021-02-16 05:16] LABS: Modified Allen's Test Unable to perform; PCO2 ABG 84.5 mmHg (35.0-45.0); Site Drawn RIGHT RADIAL; pH ABG 7.265 (7.350-7.450)
[2021-02-16 05:17] LABS: Device VENTILATOR
[2021-02-16 05:18] LABS: Arterial Blood Gas PEEP 16 cmH2O; Arterial Blood Gas Vent Mode PRESSURE CONTROL; Arterial Blood Gas Ventilator rate 28 /MIN; Peak Inspiratory Pressure 35 cmH2O
[2021-02-16] MEDS: MIDAZOLAM 100MG/NS 100ML(*CRX) 100 MG/100 ML BAG 10 MG IV CONT ×2 (05:31→15:52)
[2021-02-16] MEDS: CENTRAL LINE FLUSH 10 ML IV PUSH ×3 (05:35→21:02)
[2021-02-16] MEDS: SODIUM BICARBONATE 8.4% 50 MEQ/50 ML SYRINGE 100 MEQ IV PUSH (06:27)
[2021-02-16] MEDS: HYDROCORTISONE SODIUM SUCCINATE 100 MG/2 ML VIAL IV PUSH ×3 (06:35→21:02)
[2021-02-16] MEDS: MAGNESIUM SULF 2 GM/WATER 50ML 2 GM/50 ML BAG IVPB (08:37)
[2021-02-16] MEDS: PANTOPRAZOLE SODIUM IV 40 MG VIAL IV PUSH ×2 (08:38→20:28)
[2021-02-16] MEDS: MINERAL OIL/WHITE PETROLATUM OINTMENT 1 APPLIC EACH EYE ×2 (08:38→20:29)
[2021-02-16] MEDS: FENTANYL 2,500MCG/NS250ML(*CRX 2,500 MCG/250 ML BAG 20 MCG IV CONT ×2 (08:40→20:16)
--- NOTE | 2021-02-16 10:41 | WPDINTPN ---
Progress Note: A&P Assessment and Plan (1) Acute respiratory failure with hypoxia: Code(s): J96.01 - Acute respiratory failure with hypoxia Status: Acute Assessment and Plan: Acute hypoxic respiratory failure secondary to COVID-19 pneumonia. Over the course she has developed increasing oxygen requirements, transferred to the ICU on 01/12/2021 -was on BiPAP / and 100%. Intubated 01/13 -[facility] was called twice for consideration for ECMO but they did not feel patient was candidate for ECMO -02/08/2021: Patient dislodged her ETT while being placed in the prone position. Dropped his saturations, patient had to be intubated with a 6.5 ETT due to significant swelling of the tongue. Also started on Flolan due to her decreased O2 sats. -ABG reviewed - currently on pressure control ventilation. rate increased to 30, pressure control increased to 38, peep is at 14 and FiO2 is down to 80% -chest x-ray done today was reviewed and shows worsening of lung diseaseand no residual pneumothorax -on inhaled Flolan -continue bronchodilators and Pulmicort -01/23/2021, sputum cultures grew normal macario , 02/03/2021: Sputum cultures growing Klebsiella pneumoniae, forman sensitive, on imipenem, started on 01/29/2021. -she will complete a 14 day course of antibiotics 02/11 -patient's respiratory failure management has always been limited by high Peak pressures which was being managed with permissive hypercapnia. Over time her lungs have stiffened and the pressures have worsened. Patient is heavily sedated with fentanyl, Versed, propofol infusion and is on rocuronium infusion for neuromuscular blockade. Patient was switched to PCV mode of ventilation -patient was proned daily earlier in the course but lately patient has not tolerated prone ventilation. A last 2 episodes patient became tachycardic, hypotensive with significant increase in pressure and drop in her ventilation on Proning - 02/15 increased FiO2 requirement, worsening chest x-ray, fever an increase in WBC count suggest secondary bacterial pneumonia - Repeat sputum and blood cultures have been sent and are pending - Continue empiric vancomycin and imipenem. Klebsiella on her last sputum culture was sensitive to imipenem (2) Sepsis: Code(s): A41.9 - Sepsis, unspecified organism Status: Acute Assessment and Plan: 01/22/2021: Urine cultures growing Enterococcus species and mid Proteus mirabilis (initiated ceftriaxone on 01/23/2020) 01/23/2021: Sputum cultures normal macario, initiated vancomycin on 01/23/202101/29 -repeat blood and urine cultures negative She completed a 14 day course of vancomycin, imipenem 02/11 02/15 - - increased FiO2 requirement, worsening chest x-ray, fever an increase in WBC count suggest secondary bacterial pneumonia - repeat sputum and blood cultures sent - continue empiric vancomycin and imipenem. Klebsiella on her last sputum culture was sensitive to imipenem WBC has increased to 71,000 but her lactic acid level was normal Check C diff Patient too unstable to transport for any imaging at this time Infectious disease service consulted (3) Shock: Code(s): R57.9 - Shock, unspecified Status: Acute Assessment and Plan: 02/15 her lactic acid level was normal Patient was given 5% albumin bolus, 1 L normal saline bolus, 2 amps of bicarbonate and was started on 25% albumin - continue Levophed, vasopressin infusions - 02/15 started stress dose hydrocortisone -01/24/2021: Bilateral lower extremity venous Dopplers negative for DVT -02/06/2021: Pressures are borderline, patient receiving a unit of packed RBCs, Started on Levophed for a brief amount of time, which has been off now (4) Pneumonia due to COVID-19 virus: Code(s): U07.1 - COVID-19; J12.82 - Pneumonia due to coronavirus disease 2019 Status: Acute Assessment and Plan: Patient tested positive for COVID on 12/25/2020. Patient is unvaccinated
--- NOTE | 2021-02-16 10:48 | PCDIET ---
ICU Rounding Note: Tube feedings held on 02/15/21 for 600mL residual. RN reports 300mL residual this morning. MD order to reduce Vital 1.2 to 20mL/hr with plan to start Reglan. Last recorded weight is 86.5kg which is increased from last review. +I/O. Bowel Motility: 150mL output via FMS on 02/15/21. Labs Reviewed: WBC (71.0), RBC (2.70), Hgb (7.9), Hct (26.1), Glu (130), Cr (0.4), Alb (3.0) Meds Noted: Flolan, Fentanyl, Versed, Solu Cortef, Primaxin, Levophed, Zemuron, Propofol (rate of 13.45mL/hr provides 355kcal per day) Additional Notes: Left cheek abrasion; groin macerated. Following daily in ICU rounds. Assessing/reassessing every Tuesday/Tuesday.
[2021-02-16] MEDS: ALBUMIN HUMAN 25% 25 GM/100 ML 100 ML IVPB ×2 (11:34→17:21)
[2021-02-16] MEDS: METOCLOPRAMIDE HCL 10 MG/10 ML SOLN UDC PO ×2 (11:34→17:21)
[2021-02-16 11:59] LABS: Glucose Point of Care 189 mg/dl (65-105)
--- NOTE | 2021-02-16 12:30 | WPDURCON ---
Assessment and Plan Assessment and plan (1) Gross hematuria: Code(s): R31.0 - Gross hematuria Status: Acute Assessment and Plan: Garvey catheters draining well. Etiology of hematuria is unclear. Perhaps catheter related trauma during repositioning or a Garvey catheter change. I recommend urine culture. I would recommend irrigating the catheter every shift and as needed. I will obtain a renal and bladder ultrasound to look for any underlying pathology or clots within the urinary bladder. Urology Consult Note HPI Date Seen: 02/16/21 Requesting Physician: Arcadio Nava MD Primary Care Provider: Reza Kumar MD Consult Narrative Narrative: Yessi Thomas is a 60 year old female she is currently admitted to the ICU. She has intubated and sedated. He has been in the hospital for least 1 month with COVID pneumonia. I specifically asked to consult for gross hematuria. I spoke to the ICU doctor. He stated there was no hematuria until yesterday after some repositioning in the bed and a change of the Garvey catheter. Since then the urines been grossly bloody. It has been draining on its own well. There has been no clots. The urine is a pink tinge. I am unable to obtain any other history. There is no family present. Review of Systems Review of Systems: Review of systems is unable to be obtained. She is sedated intubated in the ICU PMFSH Past Medical History Medical History Acute respiratory failure with hypoxia Anxiety Diverticulosis Gastroesophageal reflux disease Hypoxia Pneumonia due to COVID-19 virus Tachycardia Surgical History Surgical History History of hysterectomy History of laparoscopic cholecystectomy History of left breast biopsy Excision of benign cyst. History of thumb surgery Tendon repair of left thumb. Family History Family History Father Diabetes mellitus Heart disease Grandparent Malignant neoplasm of prostate Cancer Mother Depression Father Hypertension Family history of diabetes mellitus in first degree relative Other Cerebrovascular accident Family history of cardiovascular disease Family history of malignant neoplasm Social History Social History Social History: Surrogate decision maker: Richard Thomas, . Code status: Full code. Smoking status: Never smoker Alcohol intake: never Alcohol use details: Rare alcohol use. Substance use: never Substance use type: does not use Additional living arrangements comments: The patient lives in [place] with her . They have 1 grown daughter who lives in [place] with their 3 grand children. 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 Spiritual care concerns: No Meds Home Medications and Allergies Home Medications Medication Instructions Recorded Confirmed Type B Complex-Vitamin B12 500 mg BYMOUTH DAILY 12/25/20 12/30/20 History Vitamin D3 2,000 units BYMOUTH DAILY 12/25/20 12/30/20 History omeprazole 20 mg PO Q12H 12/25/20 12/30/20 History ondansetron 4 mg PO Q8H PRN #14 tablet 12/25/20 12/30/20 Rx zinc sulfate 25 mg PO DAILY 12/30/20 12/30/20 History Allergies Allergy/AdvReac Type Severity Reaction Status Date / Time codeine Allergy Severe Hives / Verified 01/16/21 15:42 Red Face Vital Signs Vital Signs - 24 hr 02/15/21 14:00 02/15/21 14:18 02/15/21 14:19 Temperature Pulse Rate 124 H 125 H 130 H Respiratory Rate 28 H 28 H Blood Pressure 111/54 L Pulse Oximetry 91 91 89 L 02/15/21 16:00 02/15/21 16:30 02/15/21 18:00 Temperature 99 F Pulse Rate 133 H 132 H 133 H Respiratory Rate 28 H 28 H 28 H Blood Pressure 109/51 L 99/55 L Pulse Oximetry 90 90 89 L 02/15/21 18:45 1
--- NOTE | 2021-02-16 12:58 | WPDINFPN2 ---
Progress Note: A&P Assessment and Plan (1) Leukocytosis: Code(s): D72.829 - Elevated white blood cell count, unspecified Status: Acute Assessment and Plan: 1. Leukocytosis, likely HCAP. Cdiff or bloodstream infection also under consideration. 2. Viral pneumonia due to SARS CoV2 REC Agree with present treatment and management. Call if further issues Qs arise, thanks Subjective Date/time seen: 02/16/21 12:58 Objective Data Vital Signs Vital Signs: Vital Signs - 24 hr 02/15/21 14:00 02/15/21 14:18 02/15/21 14:19 Temperature Pulse Rate 124 H 125 H 130 H Respiratory Rate 28 H 28 H Blood Pressure 111/54 L Pulse Oximetry 91 91 89 L 02/15/21 16:00 02/15/21 16:30 02/15/21 18:00 Temperature 37.2 C Pulse Rate 133 H 132 H 133 H Respiratory Rate 28 H 28 H 28 H Blood Pressure 109/51 L 99/55 L Pulse Oximetry 90 90 89 L 02/15/21 18:45 02/15/21 18:55 02/15/21 19:00 Temperature Pulse Rate 138 H 137 H 137 H Respiratory Rate 28 H 28 H Blood Pressure 97/58 L Pulse Oximetry 89 L 89 L 90 02/15/21 19:30 02/15/21 19:40 02/15/21 19:41 Temperature 37.4 C Pulse Rate 137 H 135 H 135 H Respiratory Rate 28 H 28 H 28 H Blood Pressure 94/57 L 74/47 L 74/47 L Pulse Oximetry 89 L 83 L 02/15/21 19:42 02/15/21 19:45 02/15/21 19:51 Temperature 37.4 C Pulse Rate 136 H 135 H 136 H Respiratory Rate 28 H 28 H 28 H Blood Pressure 105/59 L Pulse Oximetry 85 L 86 L 02/15/21 20:00 02/15/21 20:07 02/15/21 20:10 Temperature 37.4 C Pulse Rate 137 H 141 H 140 H Respiratory Rate 28 H 28 H 28 H Blood Pressure 108/53 L 108/53 L Pulse Oximetry 86 L 02/15/21 20:15 02/15/21 20:30 02/15/21 20:45 Temperature 37.4 C 37.3 C 37.2 C Pulse Rate 139 H 140 H 139 H Respiratory Rate 28 H 28 H 28 H Blood Pressure 103/62 108/52 L 106/53 L Pulse Oximetry 83 L 82 L 02/15/21 21:00 02/15/21 21:11 02/15/21 21:15 Temperature 37.3 C 37.3 C Pulse Rate 138 H 142 H 137 H Respiratory Rate 28 H 28 H Blood Pressure 103/52 L 103/52 L 95/54 L Pulse Oximetry 80 L 89 L 02/15/21 21:22 02/15/21 21:31 02/15/21 21:34 Temperature 37.2 C 37.2 C Pulse Rate 134 H 133 H 136 H Respiratory Rate 28 H 28 H Blood Pressure 95/54 L 59/41 L 106/56 L Pulse Oximetry 76 L 85 L 02/15/21 21:35 02/15/21 21:40 02/15/21 21:41 Temperature 37.2 C 37.1 C Pulse Rate 135 H 133 H 136 H Respiratory Rate 28 H 28 H Blood Pressure 117/58 L 155/71 H 155/71 H Pulse Oximetry 86 L 88 L 02/15/21 21:44 02/15/21 21:45 02/15/21 21:50 Temperature 37.1 C 37.1 C 37.1 C Pulse Rate 132 H 132 H 131 H Respiratory Rate 28 H 28 H 28 H Blood Pressure 103/62 112/53 L 122/60 Pulse Oximetry 88 L 88 L 87 L 02/15/21 22:00 02/15/21 22:06 02/15/21 22:15 Temperature 37.0 C 37.0 C Pulse Rate 130 H 140 H 132 H Respiratory Rate 28 H 28 H Blood Pressure 118/63 114/63 Pulse Oximetry 87 L 88 L 87 L 02/15/21 22:16 02/15/21 22:17 02/15/21 23:16 Temperature 37.0 C Pulse Rate 132 H 138 H 129 H Respiratory Rate 28 H 28 H 28 H Blood Pressure Pulse Oximetry 87 L 89 L 90 02/16/21 00:00 02/16/21 00:02 02/16/21 00:03 Temperature 37.0 C Pulse Rate 127 H 127 H 128 H Respiratory Rate 28 H 28 H 28 H Blood Pressure 116/63 116/63 Pulse Oximetry 92 02/16/21 00:10 02/16/21 00:36 02/16/21 01:35 Temperature Pulse Rate 123 H 126 H 123 H Respiratory Rate 28 H 28 H Blood Pressure 124/55 L 124/68 Pulse Oximetry 93 02/16/21 02:00 02/16/21 02:02 02/16/21 02:51 Temperature 36.8 C Pulse Rate 119 H 116 H 119 H Respiratory Rate 28 H 28 H 28 H Blood Pressure 124/72 Pulse Oximetry 95 94 02/16/21 02:53 02/16/21 03:29 02/16/21 03:46 Temperature Pulse Rate 119 H 119 H 117 H Respiratory Rate 28 H Blood Pressure 122/70 121/70 Pulse Oximetry 94 02/16/21 04:00 02/16/21 04:04 02/16/21 04:47 Temperature 36.7 C Pulse Rate 112 H 109 H 109 H Respiratory Rate 28 H 28 H 28 H Blood Pressure 127/66
--- NOTE | 2021-02-16 14:06 | CONS_ITS ---
DATE OF CONSULTATION: 02/16/2021 REASON FOR CONSULTATION: Leukocytosis. HISTORY OF PRESENT ILLNESS: 60-year-old female who cannot provide any history. She originally was admitted to the hospital on December 30 with symptoms of fever, anorexia, nausea, vomiting, diarrhea, and cough. These were approximately 7 days in duration. She had tested positive for coronavirus 5 days prior to admission after being ill for 2 days. Her exposure had been approximately 1 week prior to her testing. She initially declined remdesivir, was given dexamethasone. Her hospital course has been complicated by persistent respiratory failure, healthcare-associated pneumonia, shock, right-sided pneumothorax on two separate occasions, persistent tachycardia, multiple chemical abnormalities, hematuria, anemia. The patient has not been eligible for ECMO. She did receive imipenem and vancomycin several weeks ago for pneumonia. These antibiotics were since withdrawn. In recent days, she has had rebound leukocytosis and worsening respiratory insufficiency with need for higher PEEP and persistent oxygenation deficit plus imipenem and vancomycin were resumed yesterday and consultation requested. The patient cannot provide any other history. She is on inhaled budesonide and also on hydrocortisone 100 mg every 8 hours. PRESENT MEDICATIONS: See above. ALLERGIES: CODEINE. HABITS: No tobacco. Rare alcohol. PAST MEDICAL HISTORY: Prior breast biopsy laparoscopic cholecystectomy, hysterectomy, GERD, diverticulosis. REVIEW OF SYSTEMS: 14-point review not obtainable from the patient due to intubation and paralysis. 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 , has a daughter with 3 children who lives in [place]. Patient lives locally. PHYSICAL EXAMINATION: GENERAL: This is a middle-aged female who appears her actual age. No acute distress. VITAL SIGNS: Her temperatures in the last 12 days are core temperatures and yesterday she had a T-max of 38.3 core. She is on vasopressors, 111/62, 98, and on the noted ventilator settings, respirations 30. LINES: She has a median left upper arm IV, which does not appear to be a midline or PICC. She also has a left forearm peripheral IV. She has a triple-lumen catheter in the neck. Flexi-Seal is in place along with a Garvey catheter. She has two chest tubes, right side upper and lower. SKIN: No rashes. Warm and dry. No ulcers. NODES: No cervical adenopathy. EENT: No scleral icterus. She has no paranasal sinus erythema, edema, or tenderness. Oral mucosa is well hydrated. Exam compromised by tubes. NECK: No masses. LUNGS: Diminished breath sounds throughout, particularly on the right side. Breath sounds are vesicular. Clear to percussion. CARDIAC: Distant S1, S2. Regular rate and rhythm. No murmurs or gallops. Pulses are 1+ and equal. ABDOMEN: Mildly obese. No masses are palpable. She is paralyzed, so exam otherwise not helpful. EXTREMITIES: No clubbing, cyanosis, edema. No venous varicosities. LABORATORY DATA: Previous sputum culture with Klebsiella pneumoniae and yeast. Blood cultures, no growth after 1 day's incubation. C difficile assay is pending. Sputum culture repeat is pending. Urine from January 22, proteus and enterococcus. Her white blood cell count 71.0, hemoglobin 7.9, platelets are 45. No differential done today. Previous white blood cell counts had been in the 20s to 30s. Blood gases are reviewed. Her chemistries with BUN 12, creatinine 0.4, glucose 130, transaminases minimally high, alkaline phosphatase 199, albumin 3.0. Prior urinalyses results reviewed. Hepatitis panel nonreactive. Her coronavirus assay 12/25/2020 positive. RADIOLOGY: Multifocal infiltrates on chest x-ray. ASSESSMENT: 1. L
--- NOTE | 2021-02-16 15:17 | PM.IMPN ---
Progress Note: A&P Assessment and Plan (1) Leukocytosis: Code(s): D72.829 - Elevated white blood cell count, unspecified Status: Acute Assessment and Plan: WBC has climbed steadily since abx stopped on 02/12. Vanco and Primaxin resumed on 02/15. WBC has climbed to 71K now. ID consulted and felt most likely primarily pulmonary in nature. Continue to [facility]. CDiff pending. (2) Acute respiratory failure with hypoxia: Code(s): J96.01 - Acute respiratory failure with hypoxia Status: Acute Assessment and Plan: Patient with acute respiratory failure secondary to COVID pneumonia. CTA of the chest 12/30 showing no central pulmonary embolus identified (sensitivity limited by motion artifact) and patchy bilateral airspace opacities c/w COVID-19 pneumonia. Oxygen requirement worsened requiring intubation on 01/13 despite aggressive medical treatment. She remains intubated and sedated but now requiring paralytics and Flolan. PEG and trach was being planned but on hold. Wean Flolan as tolerated. CT chest showing severe diffuse lung disease. Family has been made aware of the severity of the patient's illness. [place] appears grim. Appreciate circuit breaker supervisor input. (3) Anemia: Code(s): D64.9 - Anemia, unspecified Status: Acute Assessment and Plan: Hgb normal on admission but has trended down slowly to the 7-8 range since 01/23/21 but stable. Hgb did drop to 6.5 on 02/06. No evidence of acute blood loss. One unit ordered of PRBCs. Repeat HH stable. Hgb has drifted back down to the 7-8 range. Continue to monitor closely and transfuse as needed. Continue Protonix. (4) Shock: Code(s): R57.9 - Shock, unspecified Status: Acute Assessment and Plan: Patient became hypotensive on 01/14 related to sedation and hypovolemia requiring Levophed and IV fluids. BCx 01/10 negative. UCx 01/22 growing Proteus and Enterococcus treated with Rocephin and Vanco. Was having recurrent fevers and also hypothermic. Patient was re-cultured 01/29 and broad spectrum abx started. BCx and UCx negative 01/29. Sputum Cx 02/03 growing Klebsiella relatively forman-sensitive and Yeast. BP soft 10/14 requiring Hespan. She completed 14 days on abx on 02/12. Still requiring Levophed since 02/13. WOOD PILER added 02/15 but off today. Abx resumed on 02/15. (5) Pneumothorax on right: Onset Date: ~01/14/21 Code(s): J93.9 - Pneumothorax, unspecified Status: Acute Assessment and Plan: Patient with PTX on the right with CT in place. CXR 02/08 showing recurrent right PTX so a second chest tube added. Chest tube management per circuit breaker supervisor. Now on a PEEP of 14. Continue daily CXR. (6) Tongue swelling: Code(s): R22.0 - Localized swelling, mass and lump, head Status: Acute Assessment and Plan: Thought tongue edema related to allergic reaction so Solu-Medrol, Benadryl and Pepcid were started. Tongue edema better but still protuberant. No masses noted by CT scan. These medications have since been stopped. Continue current mouth care plan. (7) Pneumomediastinum: Code(s): J98.2 - Interstitial emphysema Status: Acute Assessment and Plan: Patient had evidence of pneumomediastinum by CXR with SQ crepitus. Serial CXR showing that most of the pneumomediastinum has resolved but CT scan today still showing pneumomediastinum. SQ emphysema no longer present clinically. Monitor closely. Continue daily CXR. (8) Pneumonia due to COVID-19 virus: Code(s): U07.1 - COVID-19; J12.82 - Pneumonia due to coronavirus disease 2019 Status: Acute Assessment and Plan: Patient did not receive a COVID vaccination. She was exposed to an individual who was COVID positive and became symptomatic around 12/24/20; COVID positive (rapid) on 12/25/20 when in the ED. Returned to ED on 12/30 for worsening symptoms and was admitted. She did come in on hydroxychloroquine, zinc, vitamin-C and D from
[2021-02-16 17:35] LABS: Glucose Point of Care 135 mg/dl (65-105)
[2021-02-16] MEDS: NOREPINEPHRINE 8 MG/D5W 250 ML 8 MG/250 ML BAG 7.5 MG IV CONT (20:14)
[2021-02-16 21:51] LABS: Vancomycin Trough 14.7 ug/mL (10.0-20.0)
[2021-02-17] VITALS (75 sets, daily range): BP systolic 85–117; BP diastolic 55–77; PULSE 70–102; RESP 30; TEMP 35.5–36.6; O2SAT 75–100
[2021-02-17] MEDS: ALBUMIN HUMAN 25% 25 GM/100 ML 100 ML IVPB ×2 (00:04→05:10)
[2021-02-17] MEDS: METOCLOPRAMIDE HCL 10 MG/10 ML SOLN UDC PO ×4 (00:05→17:02)
[2021-02-17 00:15] LABS: Glucose Point of Care 178 mg/dl (65-105)
[2021-02-17] MEDS: EPOPROSTENOL SODIUM 0.5 MG VIAL INHALATION ×5 (00:30→22:56)
[2021-02-17] MEDS: MIDAZOLAM 100MG/NS 100ML(*CRX) 100 MG/100 ML BAG 10 MG IV CONT ×3 (01:39→21:24)
[2021-02-17] MEDS: PROPOFOL IV EMULSION 100 ML 13.45 MG IV CONT ×3 (03:45→19:34)
[2021-02-17 04:19] LABS: Mean Corpuscular Hemoglobin 28.6 pg (26-34); Mean Corpuscular Volume 95.5 fl (80-100); Mean Platelet Volume 9.9 fl (7.4-10.4); Platelet Count Result 331 k/mm3 (150-375); Red Cell Distribution Width 16.8 % (11.5-14.5); White Blood Count 37.2 K/mm3 (4.5-10.0)
[2021-02-17 04:34] LABS: Alveolar/Arterial O2 Gradient 410.6 mmHg; Base Excess ABG 11.9 mEq/l (+/-2.0); Fractional Inspired Oxygen 80 %; Oxygen Content ABG 11.8 %vol (16.0-22.0); Oxygen Saturation ABG 93.5 % (95.0-100.0); Oxyhemoglobin 93.4 % THb (90.0-100.0); PO2 ABG 76.4 mmHg (80.0-100.0); PO2 FiO2 Ratio Arterial Blood 0.96 %; Total Hemoglobin 8.9 g/dL (12.0-18.0)
[2021-02-17 04:35] LABS: Device VENTILATOR; Modified Allen's Test Pass; PCO2 ABG 79.4 mmHg (35.0-45.0); Site Drawn RIGHT RADIAL
[2021-02-17 04:36] LABS: Arterial Blood Gas PEEP 14 cmH2O; Arterial Blood Gas Vent Mode PRESSURE CONTROL; Arterial Blood Gas Ventilator rate 30 /MIN; Peak Inspiratory Pressure 38 cmH2O
[2021-02-17 04:49] LABS: Hemoglobin 6.3 g/dL (12.0-15.0)
[2021-02-17 04:51] LABS: Band Neutrophils Percent 17 % (0-6); Hypochromasia 2+ (NORMAL); Lymphocytes Absolute Manual 0.37 K/mm3 (1.1-4.5); Monocytes Absolute Manual 1.48 K/mm3 (0.1-0.90); Monocytes Percent Manual 4 % (3-9); Neutrophils Absolute Manual 35.34 K/mm3 (1.7-7.2); Neutrophils Percent Manual 78 % (46-73); Platelet Estimate Adequate (Adequate); Stomatocytes 2+ (NORMAL); Total Cells Counted 100
[2021-02-17] MEDS: HYDROCORTISONE SODIUM SUCCINATE 100 MG/2 ML VIAL IV PUSH ×3 (05:10→20:51)
[2021-02-17] MEDS: CENTRAL LINE FLUSH 10 ML IV PUSH ×3 (05:11→20:51)
[2021-02-17 05:14] LABS: Alanine Aminotransferase 42 U/L (4-35); Albumin Level 3.1 g/dL (3.5-5.1); Alkaline Phosphatase 167 U/L (38-126); Aspartate Amino Transferase 32 U/L (14-36); Bilirubin,Total 0.5 mg/dL (0.2-1.3); Blood Urea Nitrogen 18 mg/dL (7-17); Carbon Dioxide > 40 mmol/L (22-30); Chloride 93 mmol/L (98-107); Estimated CRCL calculation 161 ml/min; Estimated Glomerular Filt Rate > 60; Glucose 175 mg/dL (65-110); Magnesium 2.2 mg/dL (1.6-2.3); Phosphorus 3.1 mg/dL (2.5-4.5); Potassium 3.1 mmol/L (3.4-5.0); Sodium 142 mmol/L (137-145)
[2021-02-17] MEDS: FENTANYL 2,500MCG/NS250ML(*CRX 2,500 MCG/250 ML BAG 20 MCG IV CONT ×2 (08:17→20:46)
[2021-02-17] MEDS: PANTOPRAZOLE SODIUM IV 40 MG VIAL IV PUSH ×2 (08:49→19:38)
[2021-02-17] MEDS: MINERAL OIL/WHITE PETROLATUM OINTMENT 1 APPLIC EACH EYE ×2 (08:49→19:38)
[2021-02-17] MEDS: POTASSIUM CHLORIDE 20 MEQ PACKET (FOR LIQUID) 40 MEQ PO ×2 (09:10→13:51)
--- NOTE | 2021-02-17 09:47 | WPDINTPN ---
Progress Note: A&P Assessment and Plan (1) Acute respiratory failure with hypoxia: Code(s): J96.01 - Acute respiratory failure with hypoxia Status: Acute Assessment and Plan: Acute hypoxic respiratory failure secondary to COVID-19 pneumonia. Over the course she has developed increasing oxygen requirements, transferred to the ICU on 01/12/2021 -was on BiPAP / and 100%. Intubated 01/13 -[facility] was called twice for consideration for ECMO but they did not feel patient was candidate for ECMO -02/08/2021: Patient dislodged her ETT while being placed in the prone position. Dropped his saturations, patient had to be intubated with a 6.5 ETT due to significant swelling of the tongue. Also started on Flolan due to her decreased O2 sats. -ABG reviewed - currently on pressure control ventilation. rate is at 30, pressure control increased to 38, peep is at 14 and FiO2 is down to 80% -chest x-ray done today was reviewed and shows worsening of lung diseaseand no residual pneumothorax -on inhaled Flolan -continue bronchodilators and inhaled budesonide -01/23/2021, sputum cultures grew normal macario , 02/03/2021: Sputum cultures growing Klebsiella pneumoniae, forman sensitive, on imipenem, started on 01/29/2021. -she will complete a 14 day course of antibiotics 02/11 -patient's respiratory failure management has always been limited by high Peak pressures which was being managed with permissive hypercapnia. Over time her lungs have stiffened and the pressures have worsened. Patient is heavily sedated with fentanyl, Versed, propofol infusion and is on rocuronium infusion for neuromuscular blockade. Patient was switched to PCV mode of ventilation -patient was proned daily earlier in the course but lately patient has not tolerated prone ventilation. A last 2 episodes patient became tachycardic, hypotensive with significant increase in pressure and drop in her ventilation on Proning - 02/15 increased FiO2 requirement, worsening chest x-ray, fever an increase in WBC count suggest secondary bacterial pneumonia - Repeat sputum and blood cultures have been sent and are pending - Continue empiric vancomycin and imipenem. Klebsiella on her last sputum culture was sensitive to imipenem -CT chest was done and results are below 02/[address] IMPRESSION: 1. Severe diffuse lung disease, likely a combination of pneumonia and acute respiratory distress syndrome (ARDS). 2. No pneumothorax. Two right-sided chest tubes in expected positions. 3. Pneumomediastinum. 4. Small left pleural effusion. (2) Sepsis: Code(s): A41.9 - Sepsis, unspecified organism Status: Acute Assessment and Plan: 01/22/2021: Urine cultures growing Enterococcus species and mid Proteus mirabilis (initiated ceftriaxone on 01/23/2020) 01/23/2021: Sputum cultures normal macario, initiated vancomycin on 01/23/202101/29 -repeat blood and urine cultures negative She completed a 14 day course of vancomycin, imipenem 02/11 02/15 - - increased FiO2 requirement, worsening chest x-ray, fever an increase in WBC count suggest secondary bacterial pneumonia - repeat sputum and blood cultures sent and are pending at this time - continue empiric vancomycin and imipenem. Klebsiella on her last sputum culture was sensitive to imipenem WBC has increased to 71,000 but her lactic acid level was normal Negative C diff CT scan of head chest abdomen pelvis was done 02/16 IMPRESSION: 1. Severe diffuse lung disease, likely a combination of pneumonia and acute respiratory distress syndrome (ARDS). 2. No pneumothorax. Two right-sided chest tubes in expected positions. 3. Pneumomediastinum. 4. Small left pleural effusion. 5. Small volume of pelvic ascites. CT Head - Bilateral otomastoid effusions. Infectious disease service was consulted and discussed with Dr. bernard. (3) Shock: Code(s): R57.9 - Shock, unspecified Status: Acute Assessment and Plan: 02/15 her lactic acid
--- NOTE | 2021-02-17 10:47 | PCDIET ---
Nutrition Follow-Up Complete: Nutrition Diagnosis: Suboptimal oral intake related to COVID as evidenced by average intake of 65% of recorded meals over last week with inability to eat breakfast today. Nutrition Goal: Patient to meet estimated nutritional needs. Goal met. Patient tolerating Vital 1.2 at 50mL/hr goal rate with 30mL water flush every 4 hours. Last recorded weight is 92 kg which is increased from last review. +I/O. Bowel Motility: 150mL out FMS on 02/16/21. Labs Reviewed: WBC (37.2), RBC (2.20), Hgb (6.3), Hct (21.0), Glu (175), BUN (18), Cr (0.30), K (3.1), Alb (3.1) Meds Noted: Propofol (rate of 13.446mL/hr provides 355kcal per day), Albumin, Flolan, Fentanyl, Solu Cortef, Primaxin, Reglan, Versed, Levophed, Protonix, KCl, Zemuron, Vancomycin, Magnesium Sulfate Additional Notes: Patient receiving 2 units RBC today. No skin changes reported. Will continue to monitor with same goal. Nutrition Monitoring and Evaluation: Follow up every Tuesday/Tuesday.
[2021-02-17 11:50] LABS: Glucose Point of Care 164 mg/dl (65-105)
[2021-02-17 11:55] LABS: Alveolar/Arterial O2 Gradient 489.3 mmHg; Base Excess ABG 9.9 mEq/l (+/-2.0); Fractional Inspired Oxygen 100 %; HCO3 ABG 37.5 mEq/l (22.0-26.0); Oxygen Content ABG 12.5 %vol (16.0-22.0); Oxygen Saturation ABG 98.7 % (95.0-100.0); Oxyhemoglobin 97.6 % THb (90.0-100.0); PO2 ABG 151.3 mmHg (80.0-100.0); PO2 FiO2 Ratio Arterial Blood 1.51 %; Total Hemoglobin 8.9 g/dL (12.0-18.0); pH ABG 7.332 (7.350-7.450)
[2021-02-17 11:56] LABS: PCO2 ABG 72.4 mmHg (35.0-45.0)
[2021-02-17 11:57] LABS: Arterial Blood Gas PEEP 14 cmH2O; Arterial Blood Gas Vent Mode PRESSURE CONTROL; Arterial Blood Gas Ventilator rate 30 /MIN; Device VENTILATOR; Modified Allen's Test Pass; Peak Inspiratory Pressure 38 cmH2O; Site Drawn LEFT RADIAL
--- NOTE | 2021-02-17 14:52 | PM.IMPN ---
Progress Note: A&P Assessment and Plan (1) Leukocytosis: Code(s): D72.829 - Elevated white blood cell count, unspecified Status: Acute Assessment and Plan: WBC climbed steadily since abx stopped on 02/12 and peaked at 71K yesterday. Vanco and Primaxin resumed on 02/15. BCx (1of2) positive for CN staph probably a contaminate. WBC has improved to 37K now. CDiff negative. ID consulted and felt most likely primarily pulmonary in nature. Continue to monitor. (2) Acute respiratory failure with hypoxia: Code(s): J96.01 - Acute respiratory failure with hypoxia Status: Acute Assessment and Plan: Patient with acute respiratory failure secondary to COVID pneumonia. CTA of the chest 12/30 showing no central pulmonary embolus identified (sensitivity limited by motion artifact) and patchy bilateral airspace opacities c/w COVID-19 pneumonia. Oxygen requirement worsened requiring intubation on 01/13 despite aggressive medical treatment. She remains intubated and sedated but now requiring paralytics and Flolan. PEG and trach was being planned but on hold. Wean Flolan as tolerated. CT chest 02/16 showing severe diffuse lung disease. Family has been made aware of the severity of the patient's illness. [place] appears grim. Appreciate ribbing machine operator input. (3) Anemia: Code(s): D64.9 - Anemia, unspecified Status: Acute Assessment and Plan: Hgb normal on admission but has trended down slowly to the 7-8 range since 01/23/21 but stable. Hgb did drop to 6.5 on 02/06. No evidence of acute blood loss. One unit ordered of PRBCs. Repeat HH was stable but has dropped today to 6.3 requiring transfusion. Continue to monitor closely and transfuse as needed. Continue Protonix. (4) Shock: Code(s): R57.9 - Shock, unspecified Status: Acute Assessment and Plan: Patient became hypotensive on 01/14 related to sedation and hypovolemia requiring Levophed and IV fluids. BCx 01/10 negative. UCx 01/22 growing Proteus and Enterococcus treated with Rocephin and Vanco. Was having recurrent fevers and also hypothermic. Patient was re-cultured 01/29 and broad spectrum abx started. BCx and UCx negative 01/29. Sputum Cx 02/03 growing Klebsiella relatively forman-sensitive and Yeast. BP soft 02/05 requiring Hespan. She completed 14 days on abx on 02/12. Still requiring Levophed since 02/13. BORE MILL OPERATOR [employer] added 02/15 but off yesterday. BCx noted from 02/15. Broad spectrum Abx resumed on 02/15. (5) Pneumothorax on right: Onset Date: ~01/14/21 Code(s): J93.9 - Pneumothorax, unspecified Status: Acute Assessment and Plan: Patient with PTX on the right with CT in place. CXR 02/08 showing recurrent right PTX so a second chest tube added. Chest tube management per ribbing machine operator. CXR today showing inferior right chest tube advanced with the side port now ending in the pleural space. Remains on a PEEP of 14. Continue daily CXR. GS re-consulted. (6) Tongue swelling: Code(s): R22.0 - Localized swelling, mass and lump, head Status: Acute Assessment and Plan: Thought tongue edema related to allergic reaction so Solu-Medrol, Benadryl and Pepcid were started. Tongue edema better but still protuberant. No masses noted by CT scan. These medications have since been stopped. Continue current mouth care plan. (7) Pneumomediastinum: Code(s): J98.2 - Interstitial emphysema Status: Acute Assessment and Plan: Patient had evidence of pneumomediastinum by CXR with SQ crepitus. Serial CXR showing that most of the pneumomediastinum has resolved but CT scan 02/16 still showing pneumomediastinum. SQ emphysema no longer present clinically. Monitor closely. Continue daily CXR. (8) Pneumonia due to COVID-19 virus: Code(s): U07.1 - COVID-19; J12.82 - Pneumonia due to coronavirus disease 2019 Status: Acute Assessment and Plan: Patient did not receive a COVID vaccination. She
--- NOTE | 2021-02-17 16:28 | WPDUROPN2 ---
Progress Note: A&P Assessment and Plan (1) Gross hematuria: Code(s): R31.0 - Gross hematuria Status: Acute Assessment and Plan: Secondary to urethral trauma. Continue irrigating PRN. D/t patient's overall condition and normal upper tracts on CT, no cysto is needed at this time. No further evaluation. Consult us if further urologic assistance is needed. Subjective Subjective Date/Time Seen: 02/17/21 16:28 Gross hematuria s/p repositioning and catheter exchange yesterday. CT 02/16/2021 is normal, no urologic abnormalities noted. Patient is intubated and sedated. Review of Systems Review of Systems: ROS unobtainable: Yes unobtainable due to medical condition Exam Resp: Effort & Inspection: other (Intubated) Cardio: Rate: regular rate Urinary Catheter: Urinary Catheter: patent and draining, urine clear and urine pink Objective Data Vital Signs Vital Signs: Vital Signs - 24 hr 02/16/21 16:29 02/16/21 17:15 02/16/21 17:44 Temperature Pulse Rate 96 97 97 Respiratory Rate 30 H 30 H Blood Pressure 102/64 95/56 L Pulse Oximetry 98 02/16/21 18:00 02/16/21 18:15 02/16/21 18:29 Temperature 96.9 F L Pulse Rate 96 96 95 Respiratory Rate 30 H 30 H 30 H Blood Pressure 101/63 104/63 Pulse Oximetry 94 94 02/16/21 18:31 02/16/21 19:00 02/16/21 19:15 Temperature 97.2 F L 97.2 F L Pulse Rate 95 96 95 Respiratory Rate 30 H 30 H Blood Pressure 104/63 94/57 L 95/57 L Pulse Oximetry 94 94 02/16/21 19:30 02/16/21 19:45 02/16/21 20:00 Temperature 97.3 F L 97.3 F L 97.3 F L Pulse Rate 95 95 93 Respiratory Rate 30 H 30 H 30 H Blood Pressure 95/57 L 97/59 L Pulse Oximetry 94 94 95 02/16/21 20:14 02/16/21 20:15 02/16/21 20:16 Temperature Pulse Rate 93 92 92 Respiratory Rate 30 H 30 H Blood Pressure 97/59 L 97/59 L Pulse Oximetry 93 02/16/21 20:31 02/16/21 21:00 02/16/21 21:17 Temperature 97.4 F L 97.3 F L Pulse Rate 96 92 92 Respiratory Rate 30 H 30 H 30 H Blood Pressure 110/59 L 97/55 L Pulse Oximetry 94 95 02/16/21 21:45 02/16/21 22:00 02/16/21 22:30 Temperature 97.0 F L Pulse Rate 94 93 93 Respiratory Rate 30 H 30 H 30 H Blood Pressure 104/60 Pulse Oximetry 94 95 02/16/21 23:31 02/17/21 00:00 02/17/21 00:04 Temperature 97.3 F L Pulse Rate 93 92 91 Respiratory Rate 30 H 30 H Blood Pressure 101/59 L 109/62 Pulse Oximetry 96 94 02/17/21 00:25 02/17/21 00:35 02/17/21 00:36 Temperature Pulse Rate 99 96 95 Respiratory Rate 30 H 30 H 30 H Blood Pressure 109/62 Pulse Oximetry 92 02/17/21 00:37 02/17/21 01:39 02/17/21 02:00 Temperature 97.3 F L Pulse Rate 95 89 91 Respiratory Rate 30 H 30 H 30 H Blood Pressure 100/58 L Pulse Oximetry 95 02/17/21 02:20 02/17/21 03:31 02/17/21 03:42 Temperature Pulse Rate 89 91 90 Respiratory Rate 30 H 30 H 30 H Blood Pressure Pulse Oximetry 96 92 02/17/21 03:45 02/17/21 04:00 02/17/21 04:27 Temperature 97.4 F L Pulse Rate 90 90 93 Respiratory Rate 30 H 30 H 30 H Blood Pressure 106/65 Pulse Oximetry 94 94 02/17/21 04:48 02/17/21 04:49 02/17/21 06:00 Temperature 97.4 F L Pulse Rate 93 94 97 Respiratory Rate 30 H 30 H 30 H Blood Pressure 105/60 103/61 Pulse Oximetry 96 02/17/21 06:23 02/17/21 06:24 02/17/21 07:16 Temperature Pulse Rate 90 90 89 Respiratory Rate 30 H 30 H Blood Pressure 104/62 Pulse Oximetry 96 96 02/17/21 07:19 02/17/21 08:00 02/17/21 08:16 Temperature 96.8 F L Pulse Rate 89 87 86 Respiratory Rate 30 H 30 H 30 H Blood Pressure 104/62 106/63 Pulse Oximetry 95 02/17/21 08:17 02/17/21 08:25 02/17/21 08:34 Temperature 96.7 F L Pulse Rate 86 88 84 Respiratory Rate 30 H 30 H 30 H Blood Pressure 101/60 Pulse Oximetry 96 97 02/17/21 08:50 02/17/21 08:57 02/17/21 09:19 Temperature 96.6 F L Pulse Rate 85 88 87 Respiratory Rate 30 H Blood Pressure 111/68 101/60 111/68 Pulse Oxime
[2021-02-17 17:29] LABS: Glucose Point of Care 129 mg/dl (65-105)
--- NOTE | 2021-02-17 23:51 | PC.NURSE ---
Addendum entered by Aman Montalvo RN 02/18/21 07:38: Spoke with Richard ( of patient) over the phone. Richard had asked on an update, vital signs were relayed as well as urine output. Richard then began talking about conspiracy theories with Geliyoo and talking about corporations are only in it for the money and began talking about how Ivermectin is a life saving drug, and that vaccines are not effective. This continued on for quite some time. He then proceeded to tell me that he is in court to get us to give Ivermectin to his . He proceeded to tell me that [facility] attorneys have okayed it for a nurse that is on staff to give the drug after his (private) physician would only be able to administer it for 3 days and that a nurse would be needed to give it after that. He proceeded to tell me that he has a proposition for me and needs a nurses name as a reference for the parimutuel ticket checker that will be willing to give said drug, and that he will be using my name. I informed Richard that I'm not aware of any legal action of [facility] Attorneys stating that a nurse can administer the drug. I also informed Richard not to use my name as a reference, and that I cannot give any drug that is NOT prescribed by the physicians on staff at [facility]. He then proceeded to tell me how it is all legal like and that there will be no repercussions as he is signing waivers and that it is okay for me to do so. Richard was then informed again that I can not give a medication that is not prescribed by physicians on staff at [facility]. Richard stated that we will be all impressed as this life saving drug will cure his . He then asked to talk to her on a portable phone, Richard was transferred to the phone, then it was set next to her ear in the room. I then left the room and this was the end of the conversation as he was told to hang up when he is done talking with her and to have a good night. Original Note: Spoke with Richard ( and POA of patient) over the phone. Richard had asked on an update, vital signs were relayed as well as urine output. Richard then began talking about conspiracy theories with Geliyoo and talking about corporations are only in it for the money and began talking about how Ivermectin is a life saving drug, and that vaccines are not effective. This continued on for quite some time. He then proceeded to tell me that he is in court to get us to give Ivermectin to his . He proceeded to tell me that [facility] attorneys have okayed it for a nurse that is on staff to give the drug after his (private) physician would only be able to administer it for 3 days and that a nurse would be needed to give it after that. He proceeded to tell me that he has a proposition for me and needs a nurses name as a reference for the parimutuel ticket checker that will be willing to give said drug, and that he will be using my name. I informed Richard that I'm not aware of any legal action of [facility] Attorneys stating that a nurse can administer the drug. I also informed Richard not to use my name as a reference, and that I cannot give any drug that is NOT prescribed by the physicians on staff at [facility]. He then proceeded to tell me how it is all legal like and that there will be no repercussions as he is signing waivers and that it is okay for me to do so. Richard was then informed again that I can not give a medication that is not prescribed by physicians on staff at [facility]. Richard stated that we will be all impressed as this life saving drug will cure his . He then asked to talk to her on a portable phone, Richard was transferred to the phone, then it was set next to her ear in the room. I then left the room and this was the end of the conversation as he was told to hang up when he is done talking with her and to have a good night.
[2021-02-18] VITALS (68 sets, daily range): BP systolic 102–153; BP diastolic 57–97; PULSE 95–133; RESP 30–33; TEMP 36.4–37.2; O2SAT 89–98
[2021-02-18] MEDS: METOCLOPRAMIDE HCL 10 MG/10 ML SOLN UDC PO ×5 (00:35→23:22)
[2021-02-18 00:43] LABS: Glucose Point of Care 175 mg/dl (65-105)
[2021-02-18] MEDS: PROPOFOL IV EMULSION 100 ML 13.45 MG IV CONT (02:13)
[2021-02-18 04:49] LABS: Hematocrit 31.3 % (37.0-47.0); Hemoglobin 9.8 g/dL (12.0-15.0); Mean Corpuscular HGB Conc 31.3 g/dl (32-36); Mean Corpuscular Hemoglobin 28.8 pg (26-34); Mean Corpuscular Volume 92.1 fl (80-100); Mean Platelet Volume 9.9 fl (7.4-10.4); Platelet Count Result 388 k/mm3 (150-375); White Blood Count 31.6 K/mm3 (4.5-10.0)
[2021-02-18] MEDS: EPOPROSTENOL SODIUM 0.5 MG VIAL INHALATION ×4 (04:53→22:57)
[2021-02-18 05:12] LABS: Alveolar/Arterial O2 Gradient 408.8 mmHg; Base Excess ABG 9.3 mEq/l (+/-2.0); Carboxyhemoglobin 0.3 % THb (0-2.0); Fractional Inspired Oxygen 80 %; HCO3 ABG 38.2 mEq/l (22.0-26.0); Methemoglobin ABG 0.3 %THb (0-1.5); Oxygen Content ABG 14.7 %vol (16.0-22.0); Oxygen Saturation ABG 93.6 % (95.0-100.0); Oxyhemoglobin 93.7 % THb (90.0-100.0); PO2 ABG 78.1 mmHg (80.0-100.0); PO2 FiO2 Ratio Arterial Blood 0.98 %; Reduced Hemoglobin 5.7 %THb (0-5.0); Total Hemoglobin 11.1 g/dL (12.0-18.0)
[2021-02-18 05:13] LABS: pH ABG 7.299 (7.350-7.450)
[2021-02-18 05:14] LABS: Device VENTILATOR; Modified Allen's Test Pass; PCO2 ABG 79.5 mmHg (35.0-45.0); Site Drawn LEFT RADIAL
[2021-02-18 05:14] LABS: Alanine Aminotransferase 72 U/L (4-35); Albumin Level 3.2 g/dL (3.5-5.1); Alkaline Phosphatase 184 U/L (38-126); Aspartate Amino Transferase 37 U/L (14-36); Bilirubin,Total 0.5 mg/dL (0.2-1.3); Blood Urea Nitrogen 24 mg/dL (7-17); Calcium 9.2 mg/dL (8.4-10.2); Carbon Dioxide > 40 mmol/L (22-30); Chloride 97 mmol/L (98-107); Estimated CRCL calculation 128 ml/min; Estimated Glomerular Filt Rate > 60; Glucose 141 mg/dL (65-110); Potassium 4.3 mmol/L (3.4-5.0); Sodium 144 mmol/L (137-145)
[2021-02-18 05:15] LABS: Arterial Blood Gas PEEP 14 cmH2O; Arterial Blood Gas Pressure Support 38 cmH2O; Arterial Blood Gas Vent Mode PRESSURE CONTROL; Arterial Blood Gas Ventilator rate 30 /MIN
[2021-02-18] MEDS: CENTRAL LINE FLUSH 10 ML IV PUSH ×3 (05:15→21:10)
[2021-02-18] MEDS: HYDROCORTISONE SODIUM SUCCINATE 100 MG/2 ML VIAL IV PUSH ×2 (05:15→17:26)
[2021-02-18] MEDS: PROPOFOL IV EMULSION 100 ML 22.41 MG IV CONT ×4 (06:06→20:01)
[2021-02-18] MEDS: MIDAZOLAM 100MG/NS 100ML(*CRX) 100 MG/100 ML BAG 10 MG IV CONT ×2 (07:20→17:24)
[2021-02-18] MEDS: FENTANYL 2,500MCG/NS250ML(*CRX 2,500 MCG/250 ML BAG 20 MCG IV CONT ×2 (08:33→20:13)
[2021-02-18] MEDS: MINERAL OIL/WHITE PETROLATUM OINTMENT 1 APPLIC EACH EYE ×2 (08:37→20:01)
[2021-02-18] MEDS: PANTOPRAZOLE SODIUM IV 40 MG VIAL IV PUSH ×2 (08:37→20:00)
--- NOTE | 2021-02-18 09:29 | WPDINTPN ---
Progress Note: A&P Assessment and Plan (1) Acute respiratory failure with hypoxia: Code(s): J96.01 - Acute respiratory failure with hypoxia Status: Acute Assessment and Plan: Acute hypoxic respiratory failure secondary to COVID-19 pneumonia. Over the course she has developed increasing oxygen requirements, transferred to the ICU on 01/12/2021 -was on BiPAP / and 100%. Intubated 01/13 -[facility] was called twice for consideration for ECMO but they did not feel patient was candidate for ECMO - there was a small time period 01/27-01/29, where patient was down to 10 of PEEP and 60% FiO2 and we considered trach and PEG. GI and ENT were consulted after discussion with patient's family but later patient's refused tracheostomy and PEG tube placement at that time -02/08/2021: Patient dislodged her ETT while being placed in the prone position. Dropped his saturations, patient had to be intubated with a 6.5 ETT due to significant swelling of the tongue. Also started on Flolan due to her decreased O2 sats. -01/23/2021, sputum cultures grew normal macario , 02/03/2021: Sputum cultures growing Klebsiella pneumoniae, forman sensitive, on imipenem, started on 01/29/2021. -she will complete a 14 day course of antibiotics 02/11 -patient's respiratory failure management has always been limited by high Peak pressures which was being managed with permissive hypercapnia. Over time her lungs have stiffened and the pressures have worsened. Patient is heavily sedated with fentanyl, Versed, propofol infusion and is on rocuronium infusion for neuromuscular blockade. Patient was switched to PCV mode of ventilation -patient was proned daily earlier in the course but lately patient has not tolerated prone ventilation recently. At last 2 episodes patient became tachycardic, hypotensive with significant increase in pressure and drop in her ventilation on Proning - 02/15 increased FiO2 requirement, worsening chest x-ray, fever an increase in WBC count suggest secondary bacterial pneumonia - Repeat sputum and blood cultures have been sent and are pending - Continue empiric vancomycin and imipenem. Klebsiella on her last sputum culture was sensitive to imipenem -CT chest was done and results are below 02/[address] IMPRESSION: 1. Severe diffuse lung disease, likely a combination of pneumonia and acute respiratory distress syndrome (ARDS). 2. No pneumothorax. Two right-sided chest tubes in expected positions. 3. Pneumomediastinum. 4. Small left pleural effusion. -Continue inhaled Flolan -continue bronchodilators and inhaled budesonide -ABG reviewed - currently on pressure control ventilation. rate is at 30, pressure control increased to 38, peep is at 14 and FiO2 is down to 80%. there is not much room to increase ventilation further due to high pressures ventilator. permissive hypercapnia -chest x-ray done today was reviewed - advance ET tube by 2 cm - patient is overall volume overloaded and will try to give a dose of Lasix and see if patient tolerates since she is off of vasopressors now (2) Sepsis: Code(s): A41.9 - Sepsis, unspecified organism Status: Acute Assessment and Plan: 01/22/2021: Urine cultures growing Enterococcus species and mid Proteus mirabilis (initiated ceftriaxone on 01/23/2020) 01/23/2021: Sputum cultures normal macario, initiated vancomycin on 01/23/202101/29 -repeat blood and urine cultures negative She completed a 14 day course of vancomycin, imipenem 02/11 02/15 - - increased FiO2 requirement, worsening chest x-ray, fever an increase in WBC count suggest secondary bacterial pneumonia - repeat sputum pending, blood cultures is going coags negative Staph in 1/2 cultures which could be contaminant but is sensitive to vancomycin - continue empiric vancomycin and imipenem. Klebsiella on her last sputum culture was sensitive to imipenem - infectious disease executive consultant following WBC has decreased to 31.6 and patien
[2021-02-18] MEDS: FUROSEMIDE INJ 40 MG/4 ML VIAL IV PUSH (10:25)
[2021-02-18] MEDS: SODIUM BICARBONATE 8.4% 50 MEQ/50 ML SYRINGE IV PUSH (10:27)
--- NOTE | 2021-02-18 11:55 | PM.PNGS ---
Progress Note: A&P Assessment and Plan (1) Pneumothorax on right: Onset Date: ~01/14/21 Code(s): J93.9 - Pneumothorax, unspecified Status: Acute Assessment and Plan: Superior chest tube in good position and no air leak. This was left in place. The inferior chest tube has been pulled back potentially during positioning and is no longer in good position. This was placed to water seal yesterday and repeat chest x-ray today still showed this is not in good position and no pneumothorax. Spoke with Dr. Magana who would like to be removed. I removed the inferior chest tube without complications. Continue superior chest tube to wall suction as before. (2) Pneumonia due to COVID-19 virus: Code(s): U07.1 - COVID-19; J12.82 - Pneumonia due to coronavirus disease 2019 Status: Acute Assessment and Plan: Management per Intensivisit (3) Acute respiratory failure with hypoxia: Code(s): J96.01 - Acute respiratory failure with hypoxia Status: Acute Assessment and Plan: Management per Patrol Commander Additional Plan I have discussed the patient's case and plan of care with Dr. Magana. Subjective Subjective Date/Time Seen: 02/18/21 11:30 Interval history: Pt obtunded, intubated and sedated in the ICU. No family at the bedside. Review of Systems Review of Systems: ROS unobtainable: Yes unobtainable due to endotracheal tube and unobtainable due to medical condition Exam Const: General: ill appearing acutely Orientation/consciousness: patient obtunded (sedated/intubated) Chest: Other: Right lateral chest tubes in place x 2 under the same dressing, which is soiled with serous drainage but intact. No air leak to either tube. Dressing removed. I was able to see the more inferior chest tube that is on water seal. The superior chest tube is still on wall suction. In sterile fashion, I removed the suture and removed the inferior chest tube without any issues and immediate application of a sterile occlusive dressing. Occlusive dressing applied over the in place superior chest tube as well. Resp: Auscultation: rhonchi (course bilaterally) throughout Cardio: Rate: tachycardic Rhythm: regular rhythm Urinary Catheter: Urinary Catheter: patent and draining Objective Data Vital Signs Vital Signs: Vital Signs - 24 hr 02/17/21 12:00 02/17/21 12:30 02/17/21 12:31 Temperature 96.6 F L 96.6 F L Pulse Rate 73 85 78 Respiratory Rate 30 H 30 H 30 H Blood Pressure 99/68 L 90/60 L Pulse Oximetry 90 94 90 02/17/21 12:32 02/17/21 12:46 02/17/21 13:46 Temperature 96.6 F L 96.7 F L Pulse Rate 85 77 93 Respiratory Rate 30 H 30 H Blood Pressure 89/62 L 92/62 L Pulse Oximetry 99 100 96 02/17/21 13:51 02/17/21 14:00 02/17/21 14:40 Temperature 96.7 F L Pulse Rate 86 93 87 Respiratory Rate 30 H 30 H Blood Pressure 93/65 L 93/60 L Pulse Oximetry 95 100 02/17/21 14:45 02/17/21 14:46 02/17/21 16:00 Temperature 96.2 F L 95.9 F L Pulse Rate 88 98 72 Respiratory Rate 30 H 30 H 30 H Blood Pressure 99/60 L 89/62 L Pulse Oximetry 99 95 92 02/17/21 16:58 02/17/21 17:00 02/17/21 17:15 Temperature 96.0 F L 96.2 F L Pulse Rate 71 74 71 Respiratory Rate 30 H 30 H 30 H Blood Pressure 117/73 115/76 Pulse Oximetry 98 94 93 02/17/21 17:30 02/17/21 17:45 02/17/21 18:00 Temperature 96.2 F L 96.3 F L 96.6 F L Pulse Rate 86 84 86 Respiratory Rate 30 H 30 H 30 H Blood Pressure 97/63 L 106/70 103/64 Pulse Oximetry 91 94 94 02/17/21 18:02 02/17/21 18:03 02/17/21 18:05 Temperature Pulse Rate 86 86 86 Respiratory Rate 30 H 30 H 30 H Blood Pressure 103/64 Pulse Oximetry 02/17/21 18:06 02/17/21 18:30 02/17/21 18:36 Temperature 97.1 F L Pulse Rate 86 94 Respiratory Rate 30 H 30 H Blood Pressure 106/70 Pulse Oximetry 91 91 02/17/21 19:00 02/17/21 19:34 02/17/21 19:35 Temperature Pulse Rate 102 H 98 99 Respiratory Rate 30 H 30 H 30 H Blood Pre
--- NOTE | 2021-02-18 11:58 | PCDIET ---
ICU Rounding Note: Patient tolerating Vital 1.2 at 50mL/hr goal rate with 30mL water flush every 4 hours. Last recorded weight is 93.6kg which is increased from last review. +I/O. Bowel Motility: FMS remains in place with 325mL out on 02/17/21. Labs Reviewed: WBC (31.6), RBC (3.40), Hgb (9.8), Hct (31.3), Glu (141), BUN (24), Cr (0.4), Alb (3.2) Meds Noted: Propofol (rate of 22.41mL/hr provides 591kcal per day), Zemuron, Vancomycin, Vasopressin, Pulmicort, Flolan, Fentanyl, Solu Cortef, Primaxin, Reglan, Versed, Protonix Additional Notes: Left cheek abrasion. Groin macerated. Following daily in ICU rounds. Assessing/reassessing every Tuesday/Tuesday.
[2021-02-18 14:05] LABS: Glucose Point of Care 162 mg/dl (65-105)
--- NOTE | 2021-02-18 14:13 | PM.IMPN ---
Progress Note: A&P Assessment and Plan (1) Leukocytosis: Code(s): D72.829 - Elevated white blood cell count, unspecified Status: Acute Assessment and Plan: WBC climbed steadily since abx stopped on 02/12 and peaked at 71K on 02/16. Vanco and Primaxin resumed on 02/15. BCx (1of2) positive for CN staph probably a contaminate and now sputum positive as well. WBC has improved to 32K now. CDiff negative. ID consulted and felt most likely primarily pulmonary in nature. Continue to monitor. (2) Acute respiratory failure with hypoxia: Code(s): J96.01 - Acute respiratory failure with hypoxia Status: Acute Assessment and Plan: Patient with acute respiratory failure secondary to COVID pneumonia. CTA of the chest 12/30 showing no central pulmonary embolus identified (sensitivity limited by motion artifact) and patchy bilateral airspace opacities c/w COVID-19 pneumonia. Oxygen requirement worsened requiring intubation on 01/13 despite aggressive medical treatment. She remains intubated and sedated but now requiring paralytics and Flolan. PEG and trach was being planned but on hold. Wean Flolan as tolerated. CT chest 02/16 showing severe diffuse lung disease. Family has been made aware of the severity of the patient's illness. Furlong appears grim. Appreciate printed circuit board reworker input. (3) Anemia: Code(s): D64.9 - Anemia, unspecified Status: Acute Assessment and Plan: Hgb normal on admission but has trended down slowly to the 7-8 range since 01/23/21 but stable. Hgb did drop to 6.5 on 02/06. No evidence of acute blood loss. One unit ordered of PRBCs. Repeat HH was stable but has dropped 02/17 to 6.3 requiring 2U PRBC transfusion. No evidence of acute blood loss. Continue to monitor closely and transfuse as needed. Continue Protonix. (4) Shock: Code(s): R57.9 - Shock, unspecified Status: Acute Assessment and Plan: Patient became hypotensive on 01/14 related to sedation and hypovolemia requiring Levophed and IV fluids. BCx 01/10 negative. UCx 01/22 growing Proteus and Enterococcus treated with Rocephin and Vanco. Was having recurrent fevers and also hypothermic. Patient was re-cultured 01/29 and broad spectrum abx started. BCx and UCx negative 01/29. Sputum Cx 02/03 growing Klebsiella relatively forman-sensitive and Yeast. BP soft 02/05 requiring Hespan. She completed 14 days on abx on 02/12. Still requiring Levophed since 02/13. DECATIZER added 02/15 but off yesterday. Solu-Cortef added 02/15 for possible adrenal insufficiency. BCx (1of2) from 02/15 growing Coag Negative Staph, possibly a contaminate. Broad spectrum Abx resumed on 02/15. Sputum 02/16 growing GNB. Follow up on repeat culture results. (5) Pneumothorax on right: Onset Date: ~01/14/21 Code(s): J93.9 - Pneumothorax, unspecified Status: Acute Assessment and Plan: Patient with PTX on the right with CT in place. CXR 02/08 showing recurrent right PTX so a second chest tube added. Chest tube management per printed circuit board reworker. CXR yesterday and today showing inferior right chest tube advanced with the side port now ending in the pleural space. Remains on a PEEP of 14. Continue daily CXR. GS following and appreciate thier input. (6) Tongue swelling: Code(s): R22.0 - Localized swelling, mass and lump, head Status: Acute Assessment and Plan: Thought tongue edema related to allergic reaction so Solu-Medrol, Benadryl and Pepcid were started. Tongue edema better but still protuberant. No masses noted by CT scan. These medications have since been stopped. Continue current mouth care plan. (7) Pneumomediastinum: Code(s): J98.2 - Interstitial emphysema Status: Acute Assessment and Plan: Patient had evidence of pneumomediastinum by CXR with SQ crepitus. Serial CXR showing that most of the pneumomediastinum has resolved but CT scan 02/16 still showing pneumomediastinum. SQ emphysema no longer p
[2021-02-18 18:39] LABS: Glucose Point of Care 131 mg/dl (65-105)
[2021-02-18 23:30] LABS: Glucose Point of Care 185 mg/dl (65-105)
[2021-02-19] VITALS (65 sets, daily range): BP systolic 108–167; BP diastolic 57–98; PULSE 71–137; RESP 30–32; TEMP 36.6–37.2; O2SAT 90–95
[2021-02-19] MEDS: PROPOFOL IV EMULSION 100 ML 22.41 MG IV CONT ×6 (00:23→21:16)
[2021-02-19] MEDS: MIDAZOLAM 100MG/NS 100ML(*CRX) 100 MG/100 ML BAG 10 MG IV CONT ×3 (03:20→23:16)
[2021-02-19 04:30] LABS: Hematocrit 31.4 % (37.0-47.0); Hemoglobin 9.6 g/dL (12.0-15.0); Mean Corpuscular HGB Conc 30.6 g/dl (32-36); Mean Corpuscular Volume 94.9 fl (80-100); Mean Platelet Volume 9.7 fl (7.4-10.4); Platelet Count Result 379 k/mm3 (150-375); Red Blood Count 3.31 M/mm3 (4.2-5.4); Red Cell Distribution Width 17.1 % (11.5-14.5); White Blood Count 26.1 K/mm3 (4.5-10.0)
[2021-02-19 04:42] LABS: Alanine Aminotransferase 55 U/L (4-35); Albumin Level 2.6 g/dL (3.5-5.1); Alkaline Phosphatase 161 U/L (38-126); Aspartate Amino Transferase 21 U/L (14-36); Bilirubin,Total 0.4 mg/dL (0.2-1.3); Blood Urea Nitrogen 27 mg/dL (7-17); Calcium 8.5 mg/dL (8.4-10.2); Carbon Dioxide > 40 mmol/L (22-30); Chloride 96 mmol/L (98-107); Estimated CRCL calculation 225 ml/min; Estimated Glomerular Filt Rate > 60; Glucose 129 mg/dL (65-110); Magnesium 1.7 mg/dL (1.6-2.3); Phosphorus 3.5 mg/dL (2.5-4.5); Sodium 147 mmol/L (137-145)
[2021-02-19] MEDS: EPOPROSTENOL SODIUM 0.5 MG VIAL INHALATION (04:58)
[2021-02-19 05:16] LABS: Alveolar/Arterial O2 Gradient 414.6 mmHg; Carboxyhemoglobin 0.1 % THb (0-2.0); Fractional Inspired Oxygen 80 %; HCO3 ABG 44.9 mEq/l (22.0-26.0); Methemoglobin ABG 0.4 %THb (0-1.5); Oxygen Content ABG 14.8 %vol (16.0-22.0); PO2 ABG 69.2 mmHg (80.0-100.0); PO2 FiO2 Ratio Arterial Blood 0.86 %; Reduced Hemoglobin 7.5 %THb (0-5.0); Total Hemoglobin 11.4 g/dL (12.0-18.0); pH ABG 7.354 (7.350-7.450)
[2021-02-19 05:17] LABS: PCO2 ABG 82.5 mmHg (35.0-45.0)
[2021-02-19 05:18] LABS: Arterial Blood Gas PEEP 14 cmH2O; Arterial Blood Gas Vent Mode PRESSURE CONTROL; Arterial Blood Gas Ventilator rate 30 /MIN; Device VENTILATOR; Modified Allen's Test Pass; Peak Inspiratory Pressure 38 cmH2O; Site Drawn LEFT RADIAL
[2021-02-19] MEDS: HYDROCORTISONE SODIUM SUCCINATE 100 MG/2 ML VIAL IV PUSH (06:06)
[2021-02-19] MEDS: METOCLOPRAMIDE HCL 10 MG/10 ML SOLN UDC PO ×4 (06:06→23:18)
[2021-02-19] MEDS: CENTRAL LINE FLUSH 10 ML IV PUSH ×3 (06:06→21:15)
[2021-02-19] MEDS: POTASSIUM CHLORIDE 20 MEQ PACKET (FOR LIQUID) 40 MEQ FEED TUBE (06:06)
[2021-02-19 07:57] LABS: SARS-CoV-2 RNA PCR Negative
[2021-02-19] MEDS: FENTANYL 2,500MCG/NS250ML(*CRX 2,500 MCG/250 ML BAG 20 MCG IV CONT ×2 (08:27→21:13)
[2021-02-19] MEDS: PANTOPRAZOLE SODIUM IV 40 MG VIAL IV PUSH ×2 (08:35→21:14)
[2021-02-19] MEDS: METOPROLOL TARTRATE INJ 5 MG/5 ML VIAL IV PUSH ×2 (08:37→21:20)
[2021-02-19] MEDS: MINERAL OIL/WHITE PETROLATUM OINTMENT 1 APPLIC EACH EYE ×2 (08:45→21:14)
[2021-02-19] MEDS: EPOPROSTENOL SODIUM 0.5 MG VIAL 0.25 MG INHALATION ×3 (10:46→22:12)
--- NOTE | 2021-02-19 10:51 | PM.IMPN ---
Progress Note: A&P Assessment and Plan (1) Leukocytosis: Code(s): D72.829 - Elevated white blood cell count, unspecified Status: Acute Assessment and Plan: WBC climbed steadily since abx stopped on 02/12 and peaked at 71K on 02/16. Vanco and Primaxin resumed on 02/15. BCx (1of2) positive for CN staph probably a contaminate and sputum positive as well. CDiff negative. WBC has improved to 26K now. ID consulted and felt most likely primarily pulmonary in nature. Continue to monitor.Follow up on sputum cx. (2) Acute respiratory failure with hypoxia: Code(s): J96.01 - Acute respiratory failure with hypoxia Status: Acute Assessment and Plan: Patient with acute respiratory failure secondary to COVID pneumonia. CTA of the chest 12/30 showing no central pulmonary embolus identified (sensitivity limited by motion artifact) and patchy bilateral airspace opacities c/w COVID-19 pneumonia. Oxygen requirement worsened requiring intubation on 01/13 despite aggressive medical treatment. She remains intubated and sedated but now requiring paralytics and Flolan. PEG and trach was being planned but on hold. Wean Flolan as tolerated. CT chest 02/16 showing severe diffuse lung disease. She remains on high vent settings but able to decrease PEEP to12. Family has been made aware of the severity of the patient's illness. Appreciate informatics spec input. (3) Anemia: Code(s): D64.9 - Anemia, unspecified Status: Acute Assessment and Plan: Hgb normal on admission but has trended down slowly to the 7-8 range since 01/23/21 but stable. Hgb did drop to 6.5 on 02/06. No evidence of acute blood loss. One unit ordered of PRBCs. Repeat HH was stable but has dropped 02/17 to 6.3 requiring 2U PRBC transfusion. No evidence of acute blood loss. Hgb up to 9 after transfusion and remaining stable. Continue to monitor closely and transfuse as needed. Continue Protonix. (4) Shock: Code(s): R57.9 - Shock, unspecified Status: Acute Assessment and Plan: Patient became hypotensive on 01/14 related to sedation and hypovolemia requiring Levophed and IV fluids. BCx 01/10 negative. UCx 01/22 growing Proteus and Enterococcus treated with Rocephin and Vanco. Was having recurrent fevers and also hypothermic. Patient was re-cultured 01/29 and broad spectrum abx started. BCx and UCx negative 01/29. Sputum Cx 02/03 growing Klebsiella relatively forman-sensitive and Yeast. BP soft 02/05 requiring Hespan. She completed 14 days of Vanco/primaxin on 02/12. Levophed added 02/12 and LARRIMAN HELPER added 02/15 but off 02/17 and 02/16 respectfully. Broad spectrum Abx resumed on 02/15. Solu-Cortef added 02/15 for possible adrenal insufficiency. BCx (1of2) from 02/15 growing Coag Negative Staph, possibly a contaminate. CDiff negative. Sputum 02/16 growing GNB. UCx 02/16 growing Tamar. Follow up on repeat culture results. (5) Pneumothorax on right: Onset Date: ~01/14/21 Code(s): J93.9 - Pneumothorax, unspecified Status: Acute Assessment and Plan: Patient with PTX on the right with CT in place. CXR 02/08 showing recurrent right PTX so a second chest tube added. Chest tube management per informatics spec. CXR yesterday continued to show inferior right chest tube with the side port now ending in the pleural space. This chest tube was removed 02/18 and one chest tube remains in place. GS following and appreciate their input. Continue daily CXR. (6) Tongue swelling: Code(s): R22.0 - Localized swelling, mass and lump, head Status: Acute Assessment and Plan: Thought tongue edema related to allergic reaction so Solu-Medrol, Benadryl and Pepcid were started. Tongue edema better and only mildly protuberant. No masses noted by Neck CT scan. These medications have since been stopped. Continue current mouth care plan. (7) Pneumomediastinum: Code(s): J98.2 - Interstitial emphysema Status: Acute Asse
--- NOTE | 2021-02-19 10:54 | WPDINTPN ---
Progress Note: A&P Assessment and Plan (1) Acute respiratory failure with hypoxia: Code(s): J96.01 - Acute respiratory failure with hypoxia Status: Acute Assessment and Plan: Acute hypoxic respiratory failure secondary to COVID-19 pneumonia. Over the course she has developed increasing oxygen requirements, transferred to the ICU on 01/12/2021 -was on BiPAP / and 100%. Intubated 01/13 -[facility] was called twice for consideration for ECMO but they did not feel patient was candidate for ECMO - there was a small time period 01/27-01/29, where patient was down to 10 of PEEP and 60% FiO2 and we considered trach and PEG. GI and ENT were consulted after discussion with patient's family but later patient's refused tracheostomy and PEG tube placement at that time -02/08/2021: Patient dislodged her ETT while being placed in the prone position. Dropped his saturations, patient had to be intubated with a 6.5 ETT due to significant swelling of the tongue. Also started on Flolan due to her decreased O2 sats. -01/23/2021, sputum cultures grew normal macario , 02/03/2021: Sputum cultures growing Klebsiella pneumoniae, forman sensitive, on imipenem, started on 01/29/2021. -she will complete a 14 day course of antibiotics 02/11 -patient's respiratory failure management has always been limited by high Peak pressures which was being managed with permissive hypercapnia. Over time her lungs have stiffened and the pressures have worsened. Patient is heavily sedated with fentanyl, Versed, propofol infusion and is on rocuronium infusion for neuromuscular blockade. Patient was switched to PCV mode of ventilation -patient was proned daily earlier in the course but lately patient has not tolerated prone ventilation recently. At last 2 episodes patient became tachycardic, hypotensive with significant increase in pressure and drop in her ventilation on Proning - 02/15 increased FiO2 requirement, worsening chest x-ray, fever an increase in WBC count suggest secondary bacterial pneumonia - Repeat sputum and blood cultures have been sent and are pending - Continue empiric vancomycin and imipenem. Klebsiella on her last sputum culture was sensitive to imipenem -CT chest was done and results are below 02/[address] IMPRESSION: 1. Severe diffuse lung disease, likely a combination of pneumonia and acute respiratory distress syndrome (ARDS). 2. No pneumothorax. Two right-sided chest tubes in expected positions. 3. Pneumomediastinum. 4. Small left pleural effusion. -decrease Flolan to 5000 units - bronchodilators and inhaled budesonide on hold as patient is on Flolan -ABG reviewed - currently on pressure control ventilation. Ventilator adjusted, peep decreased to 12, respiratory rate increased to 32. Inspiratory pressure of 38, FiO2 of 85%. -allowing permissive hypercapnia -chest x-ray done today was reviewed - patient is overall volume overloaded, was given Lasix on 02/18 with good response. (2) Sepsis: Code(s): A41.9 - Sepsis, unspecified organism Status: Acute Assessment and Plan: 01/22/2021: Urine cultures growing Enterococcus species and mid Proteus mirabilis (initiated ceftriaxone on 01/23/2020) 01/23/2021: Sputum cultures normal macario, initiated vancomycin on 01/23/202101/29 -repeat blood and urine cultures negative She completed a 14 day course of vancomycin, imipenem 02/11 02/15 - - increased FiO2 requirement, worsening chest x-ray, fever an increase in WBC count suggest secondary bacterial pneumonia - repeat sputum pending, blood cultures is going coags negative Staph in 1/2 cultures which could be contaminant but is sensitive to vancomycin - continue empiric vancomycin and imipenem. Klebsiella on her last sputum culture was sensitive to imipenem - infectious disease business transformation consultant following -leukocytosis improving gradually, patient is afebrilee Negative C diff CT scan of head chest abdomen pelvis was done 02/16 IMPRESSION: 1. S
--- NOTE | 2021-02-19 11:33 | PCDIET ---
ICU Rounding Note: Patient tolerating Vital 1.2 at 50mL/hr goal rate with 30mL water flush every 4 hours. MD ordered Banatrol TID to promote bulking of stool. Last recorded weight is 90.5kg which is down from last review. I/O noted. Bowel Motility: FMS in place with 100mL output documented on 02/18/21. Labs Reviewed: WBC (26.1), RBC (3.31), Hgb (9.6), Hct (31.4), Glu (129), BUN (27), Cr (0.2), K (3.0), Na (147), Alb (2.6) Meds Noted: Flolan, Fentanyl, Solu Cortef, Primaxin, Reglan, Versed, Protonix, KCl, Zemuron, Vancomycin, Propofol (rate of 22.41mL/hr provides 591kcal per day) Additional Notes: Left cheek abrasion. Groin area macerated. Following daily in ICU rounds. Assessing/reassessing every Tuesday/Tuesday.
[2021-02-19 13:01] LABS: Glucose Point of Care 143 mg/dl (65-105)
[2021-02-19] MEDS: HYDROCORTISONE SODIUM SUCCINATE 100 MG/2 ML VIAL 50 MG IV PUSH (16:46)
[2021-02-19 17:13] LABS: Glucose Point of Care 128 mg/dl (65-105)
[2021-02-19 22:02] LABS: Vancomycin Trough 17.2 ug/mL (10.0-20.0)
[2021-02-19 23:28] LABS: Glucose Point of Care 146 mg/dl (65-105)
[2021-02-20] VITALS (50 sets, daily range): BP systolic 109–160; BP diastolic 68–87; PULSE 113–132; RESP 32–38; TEMP 36.6–37.5; O2SAT 88–94
[2021-02-20] MEDS: PROPOFOL IV EMULSION 100 ML 22.41 MG IV CONT ×5 (01:08→20:29)
[2021-02-20] MEDS: EPOPROSTENOL SODIUM 0.5 MG VIAL 0.25 MG INHALATION (03:53)
[2021-02-20] MEDS: ACETAMINOPHEN ELIXIR 325 MG/10.15 ML UDC 650 MG FEED TUBE (04:15)
[2021-02-20] MEDS: METOPROLOL TARTRATE INJ 5 MG/5 ML VIAL IV PUSH (04:15)
[2021-02-20 05:57] LABS: Alveolar/Arterial O2 Gradient 523.2 mmHg; Base Excess ABG 12.1 mEq/l (+/-2.0); Carboxyhemoglobin 0.8 % THb (0-2.0); Fractional Inspired Oxygen 95 %; HCO3 ABG 41.7 mEq/l (22.0-26.0); Methemoglobin ABG 0.5 %THb (0-1.5); Oxygen Content ABG 16.2 %vol (16.0-22.0); Oxygen Saturation ABG 91.5 % (95.0-100.0); Oxyhemoglobin 90.8 % THb (90.0-100.0); PO2 ABG 69.5 mmHg (80.0-100.0); PO2 FiO2 Ratio Arterial Blood 0.73 %; Reduced Hemoglobin 7.9 %THb (0-5.0); Total Hemoglobin 12.7 g/dL (12.0-18.0); pH ABG 7.316 (7.350-7.450)
[2021-02-20 05:58] LABS: Device VENTILATOR; Modified Allen's Test Pass; PCO2 ABG 83.6 mmHg (35.0-45.0); Site Drawn LEFT RADIAL
[2021-02-20 05:59] LABS: Arterial Blood Gas PEEP 12 cmH2O; Arterial Blood Gas Pressure Support 38 cmH2O; Arterial Blood Gas Vent Mode PRESSURE CONTROL; Arterial Blood Gas Ventilator rate 32 /MIN
[2021-02-20] MEDS: HYDROCORTISONE SODIUM SUCCINATE 100 MG/2 ML VIAL 50 MG IV PUSH ×2 (06:02→17:31)
[2021-02-20] MEDS: CENTRAL LINE FLUSH 10 ML IV PUSH ×3 (06:03→20:28)
[2021-02-20] MEDS: METOCLOPRAMIDE HCL 10 MG/10 ML SOLN UDC PO ×3 (06:03→17:31)
[2021-02-20 06:35] LABS: Hematocrit 34.3 % (37.0-47.0); Hemoglobin 10.4 g/dL (12.0-15.0); Mean Corpuscular HGB Conc 30.3 g/dl (32-36); Mean Corpuscular Hemoglobin 28.7 pg (26-34); Mean Corpuscular Volume 94.8 fl (80-100); Platelet Count Result 412 k/mm3 (150-375); Red Blood Count 3.62 M/mm3 (4.2-5.4); Red Cell Distribution Width 17.3 % (11.5-14.5); White Blood Count 28.7 K/mm3 (4.5-10.0)
[2021-02-20 07:05] LABS: Alanine Aminotransferase 60 U/L (4-35); Alkaline Phosphatase 168 U/L (38-126); Aspartate Amino Transferase 35 U/L (14-36); Bilirubin,Total 0.4 mg/dL (0.2-1.3); Blood Urea Nitrogen 24 mg/dL (7-17); Calcium 8.6 mg/dL (8.4-10.2); Carbon Dioxide > 40 mmol/L (22-30); Chloride 95 mmol/L (98-107); Estimated CRCL calculation 222 ml/min; Estimated Glomerular Filt Rate > 60; Glucose 123 mg/dL (65-110); Magnesium 1.7 mg/dL (1.6-2.3); Phosphorus 3.4 mg/dL (2.5-4.5); Potassium 3.1 mmol/L (3.4-5.0); Sodium 144 mmol/L (137-145)
[2021-02-20] MEDS: EPOPROSTENOL SODIUM 0.5 MG VIAL INHALATION ×2 (08:13→14:00)
[2021-02-20] MEDS: FENTANYL 2,500MCG/NS250ML(*CRX 2,500 MCG/250 ML BAG 20 MCG IV CONT ×2 (08:52→20:24)
[2021-02-20] MEDS: MIDAZOLAM 100MG/NS 100ML(*CRX) 100 MG/100 ML BAG 10 MG IV CONT ×2 (08:54→20:26)
[2021-02-20] MEDS: POTASSIUM CHLORIDE 20 MEQ PACKET (FOR LIQUID) 40 MEQ FEED TUBE (08:58)
[2021-02-20] MEDS: PANTOPRAZOLE SODIUM IV 40 MG VIAL IV PUSH ×2 (08:59→20:28)
[2021-02-20] MEDS: MINERAL OIL/WHITE PETROLATUM OINTMENT 1 APPLIC EACH EYE ×2 (09:01→20:28)
--- NOTE | 2021-02-20 10:43 | PCDIET ---
Nutrition Follow-Up Complete: Nutrition Diagnosis: Suboptimal oral intake related to COVID as evidenced by average intake of 65% of recorded meals over last week with inability to eat breakfast today. Nutrition Goal: Patient to meet estimated nutritional needs. Goal met. Patient tolerating Vital 1.2 at 50mL/hr goal rate with 30mL water flush every 4 hours and Banatrol TID. Last recorded weight is 91.2 kg which is increased from last review. Bowel Motility: 300mL output in FMS on 02/19/21. Labs Reviewed: WBC (28.7), RBC (3.62), Hgb (10.4), Hct (34.3), Glu (123), BUN (24), Cr (0.2), K (3.1), Alb (3.0) Meds Noted: Propofol (rate of 22.41mL/hr provides 591kcal per day), Flolan, Fentanyl, Solu Cortef, Lopressor, Reglan, Primaxin, Versed, Protonix, KCl, Zemuron, Vancomycin Additional Notes: No change in skin reported. Will continue to monitor with same goal. Nutrition Monitoring and Evaluation: Follow up every Tuesday/Tuesday.
--- NOTE | 2021-02-20 10:57 | PM.IMPN ---
Progress Note: A&P Assessment and Plan (1) Acute respiratory failure with hypoxia: Code(s): J96.01 - Acute respiratory failure with hypoxia Status: Acute Assessment and Plan: Patient with acute respiratory failure secondary to COVID pneumonia. CTA of the chest 12/30 showing no central pulmonary embolus identified (sensitivity limited by motion artifact) and patchy bilateral airspace opacities c/w COVID-19 pneumonia. Oxygen requirement worsened requiring intubation on 01/13 despite aggressive medical treatment. She remains intubated and sedated but now requiring paralytics and Flolan. PEG and trach was being planned but on hold. CT chest 02/16 showing severe diffuse lung disease. She remains on high vent settings with PEEP 12 and FiO2 100%. Flolan at max dose. Family has been made aware of the severity of the patient's illness. She was accepted to [facility] but family declines transfer. Appreciate licensed pesticide applicator input. (2) Anemia: Code(s): D64.9 - Anemia, unspecified Status: Acute Assessment and Plan: Hgb normal on admission but has trended down slowly to the 7-8 range since 01/23/21 but stable. Hgb did drop to 6.5 on 02/06. No evidence of acute blood loss. One unit ordered of PRBCs. Repeat HH was stable but has dropped 02/17 to 6.3 requiring 2U PRBC transfusion. No evidence of acute blood loss. Hgb up to 9 after transfusion and remaining stable in the 9-10 range. Continue to monitor closely and transfuse as needed. Continue Protonix. (3) Shock: Code(s): R57.9 - Shock, unspecified Status: Acute Assessment and Plan: Patient became hypotensive on 01/14 related to sedation and hypovolemia requiring Levophed and IV fluids. BCx 01/10 negative. UCx 01/22 growing Proteus and Enterococcus treated with Rocephin and Vanco. Was having recurrent fevers and also hypothermic. Patient was re-cultured 01/29 and broad spectrum abx started. BCx and UCx negative 01/29. Sputum Cx 02/03 growing Klebsiella relatively forman-sensitive and Yeast. BP soft 02/05 requiring Hespan. She completed 14 days of Vanco/primaxin on 02/12. Levophed added 02/12 and GYM TEACHER added 02/15 but off 02/17 and 02/16 respectfully. Broad spectrum Abx resumed on 02/15. Solu-Cortef added 02/15 for possible adrenal insufficiency. BCx (1of2) from 02/15 growing Coag Negative Staph, possibly a contaminate. CDiff negative. Sputum 02/16 growing Klebsiella again relatively pansensitive. UCx 02/16 growing Tamar. Follow up on repeat culture results. Check Renal US to eval for fungal ball. (4) Pneumothorax on right: Onset Date: ~01/14/21 Code(s): J93.9 - Pneumothorax, unspecified Status: Acute Assessment and Plan: Patient with PTX on the right with CT in place. CXR 02/08 showing recurrent right PTX so a second chest tube added. Chest tube management per licensed pesticide applicator. CXR yesterday continued to show inferior right chest tube with the side port now ending in the pleural space. This chest tube was removed 02/18 and one chest tube remains in place. GS following and appreciate their input. Continue daily CXR. (5) Leukocytosis: Code(s): D72.829 - Elevated white blood cell count, unspecified Status: Acute Assessment and Plan: WBC climbed steadily since abx stopped on 02/12 and peaked at 71K on 02/16. Vanco and Primaxin resumed on 02/15. BCx (1of2) positive for CN staph probably a contaminate and sputum positive as well. CDiff negative. WBC up again to 29K. ID consulted and felt most likely primarily pulmonary in nature. As above. Continue IV abx. Consider starting anti-fungal treatment. (6) Tongue swelling: Code(s): R22.0 - Localized swelling, mass and lump, head Status: Acute Assessment and Plan: Thought tongue edema related to allergic reaction so Solu-Medrol, Benadryl and Pepcid were started. Tongue edema better and only mildly protuberant. No masses noted by Neck CT scan. These medications have since bee
[2021-02-20] MEDS: FUROSEMIDE INJ 40 MG/4 ML VIAL IV PUSH (11:37)
--- NOTE | 2021-02-20 11:52 | WPDINTPN ---
Progress Note: A&P Assessment and Plan (1) Acute respiratory failure with hypoxia: Code(s): J96.01 - Acute respiratory failure with hypoxia Status: Acute Assessment and Plan: Acute hypoxic respiratory failure secondary to COVID-19 pneumonia. Over the course she has developed increasing oxygen requirements, transferred to the ICU on 01/12/2021 -was on BiPAP / and 100%. Intubated 01/13 -[facility] was called twice for consideration for ECMO but they did not feel patient was candidate for ECMO - there was a small time period 01/27-01/29, where patient was down to 10 of PEEP and 60% FiO2 and we considered trach and PEG. GI and ENT were consulted after discussion with patient's family but later patient's refused tracheostomy and PEG tube placement at that time -02/08/2021: Patient dislodged her ETT while being placed in the prone position. Dropped his saturations, patient had to be intubated with a 6.5 ETT due to significant swelling of the tongue. Also started on Flolan due to her decreased O2 sats. -01/23/2021, sputum cultures grew normal macario , 02/03/2021: Sputum cultures growing Klebsiella pneumoniae, forman sensitive, on imipenem, started on 01/29/2021. -she will complete a 14 day course of antibiotics 02/11 -patient's respiratory failure management has always been limited by high Peak pressures which was being managed with permissive hypercapnia. Over time her lungs have stiffened and the pressures have worsened. Patient is heavily sedated with fentanyl, Versed, propofol infusion and is on rocuronium infusion for neuromuscular blockade. Patient was switched to PCV mode of ventilation -patient was proned daily earlier in the course but lately patient has not tolerated prone ventilation recently. At last 2 episodes patient became tachycardic, hypotensive with significant increase in pressure and drop in her ventilation on Proning - 02/15 increased FiO2 requirement, worsening chest x-ray, fever an increase in WBC count suggest secondary bacterial pneumonia - Repeat sputum and blood cultures have been sent and are pending - Continue empiric vancomycin and imipenem. Klebsiella on her last sputum culture was sensitive to imipenem -CT chest was done and results are below 02/[address] IMPRESSION: 1. Severe diffuse lung disease, likely a combination of pneumonia and acute respiratory distress syndrome (ARDS). 2. No pneumothorax. Two right-sided chest tubes in expected positions. 3. Pneumomediastinum. 4. Small left pleural effusion. -decrease Flolan to 5000 units - bronchodilators and inhaled budesonide on hold as patient is on Flolan -ABG reviewed - currently on pressure control ventilation. Ventilator adjusted, peep decreased to 12, respiratory rate increased to 32. Inspiratory pressure of 38, FiO2 of 85%. -allowing permissive hypercapnia -chest x-ray done today was reviewed - patient is overall volume overloaded, was given Lasix on 02/18 with good response. WILL DIURESE AGAIN TODAY, patient's blood pressures are stable (2) Sepsis: Code(s): A41.9 - Sepsis, unspecified organism Status: Acute Assessment and Plan: 01/22/2021: Urine cultures growing Enterococcus species and mid Proteus mirabilis (initiated ceftriaxone on 01/23/2020) 01/23/2021: Sputum cultures normal macario, initiated vancomycin on 01/23/202101/29 -repeat blood and urine cultures negative She completed a 14 day course of vancomycin, imipenem 02/11 02/15 - - increased FiO2 requirement, worsening chest x-ray, fever an increase in WBC count suggest secondary bacterial pneumonia - repeat sputum pending, blood cultures is going coags negative Staph in 1/2 cultures which could be contaminant but is sensitive to vancomycin - continue empiric vancomycin and imipenem. Klebsiella on her last sputum culture was sensitive to imipenem - infectious disease outplacement consultant following -leukocytosis improving gradually, patient is afebrilee Negative C diff CT sca
[2021-02-20 12:03] LABS: Glucose Point of Care 137 mg/dl (65-105)
[2021-02-20 17:53] LABS: Glucose Point of Care 140 mg/dl (65-105)
[2021-02-20] MEDS: EPOPROSTENOL SODIUM 0.5 MG VIAL 1 MG INHALATION (20:13)
[2021-02-20 23:51] LABS: Glucose Point of Care 177 mg/dl (65-105)
[2021-02-21] VITALS (64 sets, daily range): BP systolic 102–153; BP diastolic 56–81; PULSE 11–122; RESP 30–32; TEMP 36.2–36.9; O2SAT 76–93
[2021-02-21] MEDS: METOCLOPRAMIDE HCL 10 MG/10 ML SOLN UDC PO ×3 (00:11→17:33)
[2021-02-21] MEDS: PROPOFOL IV EMULSION 100 ML 22.41 MG IV CONT ×7 (00:13→21:54)
[2021-02-21] MEDS: EPOPROSTENOL SODIUM 0.5 MG VIAL 1 MG INHALATION ×4 (02:27→20:27)
[2021-02-21 05:01] LABS: Hematocrit 33.7 % (37.0-47.0); Hemoglobin 10.3 g/dL (12.0-15.0); Mean Corpuscular HGB Conc 30.6 g/dl (32-36); Mean Corpuscular Hemoglobin 28.9 pg (26-34); Mean Corpuscular Volume 94.4 fl (80-100); Mean Platelet Volume 9.7 fl (7.4-10.4); Platelet Count Result 361 k/mm3 (150-375); Red Blood Count 3.57 M/mm3 (4.2-5.4); Red Cell Distribution Width 16.9 % (11.5-14.5); White Blood Count 38.3 K/mm3 (4.5-10.0)
[2021-02-21 05:21] LABS: Alanine Aminotransferase 57 U/L (4-35); Albumin Level 2.9 g/dL (3.5-5.1); Alkaline Phosphatase 161 U/L (38-126); Aspartate Amino Transferase 22 U/L (14-36); Bilirubin,Total 0.3 mg/dL (0.2-1.3); Blood Urea Nitrogen 22 mg/dL (7-17); Calcium 8.8 mg/dL (8.4-10.2); Carbon Dioxide > 40 mmol/L (22-30); Chloride 88 mmol/L (98-107); Estimated CRCL calculation 222 ml/min; Estimated Glomerular Filt Rate > 60; Glucose 159 mg/dL (65-110); Magnesium 1.7 mg/dL (1.6-2.3); Phosphorus 3.1 mg/dL (2.5-4.5); Sodium 140 mmol/L (137-145)
[2021-02-21] MEDS: HYDROCORTISONE SODIUM SUCCINATE 100 MG/2 ML VIAL 50 MG IV PUSH (05:22)
[2021-02-21] MEDS: CENTRAL LINE FLUSH 10 ML IV PUSH ×3 (05:23→20:10)
[2021-02-21 05:53] LABS: Alveolar/Arterial O2 Gradient 568.3 mmHg; Base Excess ABG 15.4 mEq/l (+/-2.0); Carboxyhemoglobin 1.1 % THb (0-2.0); Device VENTILATOR; Fractional Inspired Oxygen 100 %; HCO3 ABG 44.6 mEq/l (22.0-26.0); Methemoglobin ABG 0.3 %THb (0-1.5); Modified Allen's Test Unable to perform; Oxygen Content ABG 14.4 %vol (16.0-22.0); Oxygen Saturation ABG 88.1 % (95.0-100.0); Oxyhemoglobin 88.7 % THb (90.0-100.0); PCO2 ABG 84.4 mmHg (35.0-45.0); PO2 ABG 60.3 mmHg (80.0-100.0); Reduced Hemoglobin 9.9 %THb (0-5.0); Site Drawn RIGHT RADIAL; Total Hemoglobin 11.5 g/dL (12.0-18.0); pH ABG 7.341 (7.350-7.450)
[2021-02-21 05:54] LABS: Arterial Blood Gas PEEP 12 cmH2O; Arterial Blood Gas Vent Mode CMV; Arterial Blood Gas Ventilator rate 32 /MIN
[2021-02-21 05:55] LABS: Peak Inspiratory Pressure 38 cmH2O
[2021-02-21] MEDS: MIDAZOLAM 100MG/NS 100ML(*CRX) 100 MG/100 ML BAG 10 MG IV CONT ×2 (07:12→17:09)
[2021-02-21] MEDS: FENTANYL 2,500MCG/NS250ML(*CRX 2,500 MCG/250 ML BAG 20 MCG IV CONT ×2 (08:05→20:08)
--- NOTE | 2021-02-21 08:17 | PM.IMPN ---
Progress Note: A&P Assessment and Plan (1) Acute respiratory failure with hypoxia: Code(s): J96.01 - Acute respiratory failure with hypoxia Status: Acute Assessment and Plan: Acute hypoxic respiratory failure secondary to COVID-19 pneumonia. Due to increasing oxygen requirements, she was transferred to the ICU on 01/12/2021 -was on BiPAP / and 100%. Intubated 01/13. -Continue intubation and mechanical ventilation. -[facility] was called twice for consideration for ECMO but they did not feel patient was candidate for ECMO - there was a small time period 01/27-01/29, where patient was down to 10 of PEEP and 60% FiO2 and we considered trach and PEG. GI and ENT were consulted after discussion with patient's family but later patient's refused tracheostomy and PEG tube placement at that time -02/08/2021: Patient dislodged her ETT while being placed in the prone position. Dropped his saturations, patient had to be intubated with a 6.5 ETT due to significant swelling of the tongue. Also started on Flolan due to her decreased O2 sats. -01/23/2021, sputum cultures grew normal macario , 02/03/2021: Sputum cultures growing Klebsiella pneumoniae, forman sensitive, on imipenem, started on 01/29/2021. -she will complete a 14 day course of antibiotics 02/11 -patient's respiratory failure management has always been limited by high peak pressures which was being managed with permissive hypercapnia. Over time her lungs have stiffened and the pressures have worsened. Patient remains heavily sedated with fentanyl, Versed, propofol infusion and is on rocuronium infusion for neuromuscular blockade. Patient was switched to PCV mode of ventilation -patient was proned daily earlier in the course but lately patient has not tolerated prone ventilation recently. At last 2 episodes patient became tachycardic, hypotensive with significant increase in pressure and drop in her ventilation on Proning - 02/15 increased FiO2 requirement, worsening chest x-ray, fever an increase in WBC count suggest secondary bacterial pneumonia - Repeat sputum and blood cultures have been sent and are pending - Continue empiric vancomycin and imipenem. Klebsiella on her last sputum culture was sensitive to imipenem -CT chest was done and results are below 02/[address] IMPRESSION: 1. Severe diffuse lung disease, likely a combination of pneumonia and acute respiratory distress syndrome (ARDS). 2. No pneumothorax. Two right-sided chest tubes in expected positions. 3. Pneumomediastinum. 4. Small left pleural effusion. -02/21/2021: Patient was desaturating into the 70s and 80s, [place] [address] [place] -patient currently remains on pressure control ventilation, inspiratory pressure increased to 40, PEEP to 14, 100% FiO2 and a respiratory rate of 30. - bronchodilators and inhaled budesonide on hold as patient is on Flolan -chest x-ray done today x2 since she was desaturating, was reviewed - patient is overall volume overloaded, was given Lasix on 02/18 and 02/20 with good response (2) Sepsis: Code(s): A41.9 - Sepsis, unspecified organism Status: Acute Assessment and Plan: 01/22/2021: Urine cultures growing Enterococcus species and mid Proteus mirabilis (initiated ceftriaxone on 01/23/2020) 01/23/2021: Sputum cultures normal macario, initiated vancomycin on 01/23/202101/29 -repeat blood and urine cultures negative She completed a 14 day course of vancomycin, imipenem 02/11 02/15 - - increased FiO2 requirement, worsening chest x-ray, fever an increase in WBC count suggest secondary bacterial pneumonia - repeat sputum pending, blood cultures is growing coags negative Staph in 1/2 cultures which could be contaminant but is sensitive to vancomycin - continue empiric vancomycin and imipenem. Klebsiella on her last sputum culture was sensitive to imipenem - infectious disease customer service consultant following -leukocytosis improving gradually, patient is afebrilee Neg
[2021-02-21] MEDS: POTASSIUM CHLORIDE 20 MEQ PACKET (FOR LIQUID) 40 MEQ FEED TUBE (09:07)
[2021-02-21] MEDS: PANTOPRAZOLE SODIUM IV 40 MG VIAL IV PUSH ×2 (09:13→20:09)
[2021-02-21] MEDS: MINERAL OIL/WHITE PETROLATUM OINTMENT 1 APPLIC EACH EYE ×2 (09:14→20:09)
[2021-02-21 12:06] LABS: Glucose Point of Care 119 mg/dl (65-105)
--- NOTE | 2021-02-21 13:07 | WPDINTPN ---
Progress Note: A&P Assessment and Plan (1) Acute respiratory failure with hypoxia: Code(s): J96.01 - Acute respiratory failure with hypoxia Status: Acute Assessment and Plan: Acute hypoxic respiratory failure secondary to COVID-19 pneumonia. Over the course she has developed increasing oxygen requirements, transferred to the ICU on 01/12/2021 -was on BiPAP / and 100%. Intubated 01/13 -[facility] was called twice for consideration for ECMO but they did not feel patient was candidate for ECMO - there was a small time period 01/27-01/29, where patient was down to 10 of PEEP and 60% FiO2 and we considered trach and PEG. GI and ENT were consulted after discussion with patient's family but later patient's refused tracheostomy and PEG tube placement at that time -02/08/2021: Patient dislodged her ETT while being placed in the prone position. Dropped his saturations, patient had to be intubated with a 6.5 ETT due to significant swelling of the tongue. Also started on Flolan due to her decreased O2 sats. -01/23/2021, sputum cultures grew normal macario , 02/03/2021: Sputum cultures growing Klebsiella pneumoniae, forman sensitive, on imipenem, started on 01/29/2021. -she will complete a 14 day course of antibiotics 02/11 -patient's respiratory failure management has always been limited by high Peak pressures which was being managed with permissive hypercapnia. Over time her lungs have stiffened and the pressures have worsened. Patient is heavily sedated with fentanyl, Versed, propofol infusion and is on rocuronium infusion for neuromuscular blockade. Patient was switched to PCV mode of ventilation -patient was proned daily earlier in the course but lately patient has not tolerated prone ventilation recently. At last 2 episodes patient became tachycardic, hypotensive with significant increase in pressure and drop in her ventilation on Proning - 02/15 increased FiO2 requirement, worsening chest x-ray, fever an increase in WBC count suggest secondary bacterial pneumonia - Repeat sputum and blood cultures have been sent and are pending - Continue empiric vancomycin and imipenem. Klebsiella on her last sputum culture was sensitive to imipenem -CT chest was done and results are below 02/[address] IMPRESSION: 1. Severe diffuse lung disease, likely a combination of pneumonia and acute respiratory distress syndrome (ARDS). 2. No pneumothorax. Two right-sided chest tubes in expected positions. 3. Pneumomediastinum. 4. Small left pleural effusion. -02/21/2021: Patient was desaturating into the 70s and 80s[place] [address] [place] -patient currently remains on pressure control ventilation, inspiratory pressure increased to 40, PEEP to 14, 100% FiO2 and a respiratory rate of 30. - bronchodilators and inhaled budesonide on hold as patient is on Flolan -chest x-ray done today x2 since she was desaturating, was reviewed - patient is overall volume overloaded, was given Lasix on 02/18 and 02/20 with good response (2) Sepsis: Code(s): A41.9 - Sepsis, unspecified organism Status: Acute Assessment and Plan: 01/22/2021: Urine cultures growing Enterococcus species and mid Proteus mirabilis (initiated ceftriaxone on 01/23/2020) 01/23/2021: Sputum cultures normal macario, initiated vancomycin on 01/23/202101/29 -repeat blood and urine cultures negative She completed a 14 day course of vancomycin, imipenem 02/11 02/15 - - increased FiO2 requirement, worsening chest x-ray, fever an increase in WBC count suggest secondary bacterial pneumonia - repeat sputum pending, blood cultures is going coags negative Staph in 1/2 cultures which could be contaminant but is sensitive to vancomycin - continue empiric vancomycin and imipenem. Klebsiella on her last sputum culture was sensitive to imipenem - infectious disease oracle ascp consultant following -leukocytosis improving gradually, patient is afebrilee Negative C diff 02/21/2021: White blood
[2021-02-21] MEDS: MAGNESIUM SULF 2 GM/WATER 50ML 2 GM/50 ML BAG IVPB (13:53)
[2021-02-21 17:43] LABS: Glucose Point of Care 85 mg/dl (65-105)
[2021-02-21 18:00] LABS: Vancomycin Trough 8.8 ug/mL (10.0-20.0)
[2021-02-22] VITALS (72 sets, daily range): BP systolic 74–146; BP diastolic 43–86; PULSE 98–133; RESP 30–130; TEMP 36–37.2; O2SAT 88–97
[2021-02-22] MEDS: METOCLOPRAMIDE HCL 10 MG/10 ML SOLN UDC PO ×5 (00:48→23:17)
[2021-02-22 01:28] LABS: Glucose Point of Care 99 mg/dl (65-105)
[2021-02-22] MEDS: EPOPROSTENOL SODIUM 0.5 MG VIAL 1 MG INHALATION ×4 (02:03→20:01)
[2021-02-22] MEDS: PROPOFOL IV EMULSION 100 ML 22.41 MG IV CONT ×7 (03:28→23:13)
[2021-02-22] MEDS: MIDAZOLAM 100MG/NS 100ML(*CRX) 100 MG/100 ML BAG 10 MG IV CONT ×3 (03:30→23:08)
[2021-02-22] MEDS: CENTRAL LINE FLUSH 10 ML IV PUSH ×3 (05:08→21:01)
[2021-02-22 06:30] LABS: Hematocrit 33.3 % (37.0-47.0); Mean Corpuscular Hemoglobin 28.9 pg (26-34); Mean Corpuscular Volume 96.2 fl (80-100); Mean Platelet Volume 10.1 fl (7.4-10.4); Platelet Count Result 352 k/mm3 (150-375); Red Blood Count 3.46 M/mm3 (4.2-5.4); Red Cell Distribution Width 16.9 % (11.5-14.5); White Blood Count 28.6 K/mm3 (4.5-10.0)
[2021-02-22 06:34] LABS: Alveolar/Arterial O2 Gradient 575.1 mmHg; Base Excess ABG 18.8 mEq/l (+/-2.0); Carboxyhemoglobin 0.7 % THb (0-2.0); Fractional Inspired Oxygen 100 %; HCO3 ABG 47.1 mEq/l (22.0-26.0); Methemoglobin ABG 0.4 %THb (0-1.5); Oxygen Content ABG 13.8 %vol (16.0-22.0); Oxygen Saturation ABG 88.9 % (95.0-100.0); Oxyhemoglobin 88.9 % THb (90.0-100.0); PO2 FiO2 Ratio Arterial Blood 0.59 %; pH ABG 7.394 (7.350-7.450)
[2021-02-22 06:35] LABS: Device VENTILATOR; Modified Allen's Test Unable to perform; PCO2 ABG 78.9 mmHg (35.0-45.0); Site Drawn RIGHT RADIAL
[2021-02-22 06:36] LABS: Arterial Blood Gas PEEP 16 cmH2O; Arterial Blood Gas Vent Mode PRESSURE CONTROL; Arterial Blood Gas Ventilator rate 30 /MIN; Peak Inspiratory Pressure 38 cmH2O
[2021-02-22 07:15] LABS: Alanine Aminotransferase 37 U/L (4-35); Albumin Level 2.7 g/dL (3.5-5.1); Alkaline Phosphatase 140 U/L (38-126); Aspartate Amino Transferase 24 U/L (14-36); Bilirubin,Total 0.5 mg/dL (0.2-1.3); Blood Urea Nitrogen 19 mg/dL (7-17); Calcium 8.8 mg/dL (8.4-10.2); Carbon Dioxide > 40 mmol/L (22-30); Chloride 88 mmol/L (98-107); Estimated CRCL calculation 225 ml/min; Estimated Glomerular Filt Rate > 60; Glucose 147 mg/dL (65-110); Magnesium 1.9 mg/dL (1.6-2.3); Phosphorus 3.3 mg/dL (2.5-4.5); Sodium 139 mmol/L (137-145)
--- NOTE | 2021-02-22 07:22 | PM.IMPN ---
Progress Note: A&P Assessment and Plan (1) Acute respiratory failure with hypoxia: Code(s): J96.01 - Acute respiratory failure with hypoxia Status: Acute Assessment and Plan: Acute hypoxic respiratory failure secondary to COVID-19 pneumonia. Over the course she has developed increasing oxygen requirements, transferred to the ICU on 01/12/2021 -was on BiPAP / and 100%. Intubated 01/13 -[facility] was called twice for consideration for ECMO but they did not feel patient was candidate for ECMO - there was a small time period 01/27-01/29, where patient was down to 10 of PEEP and 60% FiO2 and we considered trach and PEG. GI and ENT were consulted after discussion with patient's family but later patient's refused tracheostomy and PEG tube placement at that time -02/08/2021: Patient dislodged her ETT while being placed in the prone position. Dropped his saturations, patient had to be intubated with a 6.5 ETT due to significant swelling of the tongue. Also started on Flolan due to her decreased O2 sats. -01/23/2021, sputum cultures grew normal macario , 02/03/2021: Sputum cultures growing Klebsiella pneumoniae, forman sensitive, on imipenem, started on 01/29/2021. -she will complete a 14 day course of antibiotics 02/11 -patient's respiratory failure management has always been limited by high Peak pressures which was being managed with permissive hypercapnia. Over time her lungs have stiffened and the pressures have worsened. Patient is heavily sedated with fentanyl, Versed, propofol infusion and is on rocuronium infusion for neuromuscular blockade. Patient was switched to PCV mode of ventilation -patient was proned daily earlier in the course but lately patient has not tolerated prone ventilation recently. At last 2 episodes patient became tachycardic, hypotensive with significant increase in pressure and drop in her ventilation on Proning - 02/15 increased FiO2 requirement, worsening chest x-ray, fever an increase in WBC count suggest secondary bacterial pneumonia - Repeat sputum and blood cultures have been sent and are pending - Continue empiric vancomycin and imipenem. Klebsiella on her last sputum culture was sensitive to imipenem -CT chest was done and results are below 02/[address] IMPRESSION: 1. Severe diffuse lung disease, likely a combination of pneumonia and acute respiratory distress syndrome (ARDS). 2. No pneumothorax. Two right-sided chest tubes in expected positions. 3. Pneumomediastinum. 4. Small left pleural effusion. -02/21/2021: Patient was desaturating into the 70s and 80s, [place] [address] [place]. Peep increased to 16, inspiratory pressure of 40, FiO2 of 100% and rate of 30. -this morning patient's O2 sats have been between 90-94% on fluctuating. - bronchodilators and inhaled budesonide on hold as patient is on Flolan -02/22/2021. Chest x-ray 02/22 diffuse pneumonia and no edema, unchanged -will diurese patient with Lasix and albumin (2) Sepsis: Code(s): A41.9 - Sepsis, unspecified organism Status: Acute Assessment and Plan: 01/22/2021: Urine cultures growing Enterococcus species and mid Proteus mirabilis (initiated ceftriaxone on 01/23/2020) 01/23/2021: Sputum cultures normal macario, initiated vancomycin on 01/23/202101/29 -repeat blood and urine cultures negative She completed a 14 day course of vancomycin, imipenem 02/11 02/15 - increased FiO2 requirement, worsening chest x-ray, fever an increase in WBC count suggest secondary bacterial pneumonia - repeat sputum pending, blood cultures is going coags negative Staph in 1/2 cultures which could be contaminant but is sensitive to vancomycin - continue empiric vancomycin and imipenem. Klebsiella on her last sputum culture was sensitive to imipenem - infectious disease career consultant following -leukocytosis improving gradually, patient is afebrilee Negative C diff 02/22/2021: White blood cell count decreased to 28.6 from 38.8,
[2021-02-22] MEDS: POTASSIUM CHLORIDE 20 MEQ PACKET (FOR LIQUID) 40 MEQ PO ×2 (08:24→16:12)
[2021-02-22] MEDS: FENTANYL 2,500MCG/NS250ML(*CRX 2,500 MCG/250 ML BAG 20 MCG IV CONT ×2 (08:30→20:57)
[2021-02-22] MEDS: HYDROCORTISONE SODIUM SUCCINATE 100 MG/2 ML VIAL 50 MG IV PUSH (08:43)
[2021-02-22] MEDS: MINERAL OIL/WHITE PETROLATUM OINTMENT 1 APPLIC EACH EYE ×2 (08:45→19:36)
[2021-02-22] MEDS: PANTOPRAZOLE SODIUM IV 40 MG VIAL IV PUSH ×2 (08:47→19:36)
[2021-02-22] MEDS: ALBUMIN HUMAN 25% 25 GM/100 ML 100 ML IVPB (11:42)
[2021-02-22] MEDS: FUROSEMIDE INJ 40 MG/4 ML VIAL IV PUSH (11:45)
[2021-02-22 12:03] LABS: Glucose Point of Care 149 mg/dl (65-105)
--- NOTE | 2021-02-22 13:13 | WPDGIPROGNO ---
Subjective Date/time seen: 02/22/21 13:13 Objective Data Vital Signs Vital Signs: Vital Signs - 24 hr 02/21/21 14:00 02/21/21 14:21 02/21/21 14:26 Temperature 36.9 C Pulse Rate 106 H 104 H 107 H Respiratory Rate 30 H 30 H 30 H Blood Pressure 146/78 H Pulse Oximetry 88 L 89 L 02/21/21 14:29 02/21/21 14:44 02/21/21 16:00 Temperature 36.8 C Pulse Rate 106 H 114 H 115 H Respiratory Rate 30 H Blood Pressure 146/81 H 131/74 Pulse Oximetry 89 L 90 02/21/21 16:35 02/21/21 16:36 02/21/21 16:50 Temperature Pulse Rate 117 H 112 H 112 H Respiratory Rate 30 H 30 H Blood Pressure Pulse Oximetry 90 90 02/21/21 17:09 02/21/21 17:20 02/21/21 17:21 Temperature Pulse Rate 112 H 110 H 108 H Respiratory Rate 30 H 30 H 30 H Blood Pressure 124/67 Pulse Oximetry 02/21/21 17:59 02/21/21 18:00 02/21/21 18:37 Temperature 36.4 C Pulse Rate 109 H 111 H 110 H Respiratory Rate 30 H 30 H 30 H Blood Pressure 131/69 Pulse Oximetry 87 L 90 02/21/21 18:38 02/21/21 20:00 02/21/21 20:08 Temperature 36.2 C L Pulse Rate 109 H 105 H 104 H Respiratory Rate 30 H 30 H Blood Pressure 104/56 L Pulse Oximetry 90 93 02/21/21 20:10 02/21/21 20:13 02/21/21 20:14 Temperature Pulse Rate 105 H 110 H 110 H Respiratory Rate 30 H 30 H 30 H Blood Pressure 104/56 L Pulse Oximetry 02/21/21 20:28 02/21/21 20:29 02/21/21 21:00 Temperature Pulse Rate 102 H 109 H 102 H Respiratory Rate 30 H 30 H Blood Pressure 102/56 L Pulse Oximetry 92 92 02/21/21 21:51 02/21/21 21:54 02/21/21 21:57 Temperature Pulse Rate 101 H 102 H 102 H Respiratory Rate 30 H 30 H 30 H Blood Pressure 102/56 L 102/56 L Pulse Oximetry 93 02/21/21 22:12 10/31/21 00:00 02/22/21 00:01 Temperature 36.0 C L Pulse Rate 111 H 100 101 H Respiratory Rate 30 H 30 H 30 H Blood Pressure 115/65 Pulse Oximetry 93 95 94 02/22/21 01:34 02/22/21 02:04 02/22/21 02:22 Temperature Pulse Rate 110 H 100 111 H Respiratory Rate 30 H 30 H 30 H Blood Pressure 115/65 Pulse Oximetry 95 91 02/22/21 03:10 02/22/21 03:28 02/22/21 03:30 Temperature Pulse Rate 115 H 111 H 115 H Respiratory Rate 30 H 30 H 30 H Blood Pressure Pulse Oximetry 02/22/21 04:00 02/22/21 04:04 02/22/21 04:36 Temperature 36.6 C Pulse Rate 120 H 123 H 121 H Respiratory Rate 30 H 30 H 30 H Blood Pressure 145/82 H 145/62 H Pulse Oximetry 92 93 02/22/21 04:44 02/22/21 05:09 02/22/21 05:12 Temperature Pulse Rate 121 H 123 H 122 H Respiratory Rate 30 H 30 H 30 H Blood Pressure 145/62 H Pulse Oximetry 02/22/21 05:48 02/22/21 06:06 02/22/21 08:00 Temperature 36.4 C L Pulse Rate 119 H 120 H 111 H Respiratory Rate 30 H 30 H 30 H Blood Pressure 146/86 H 103/55 L Pulse Oximetry 92 94 90 02/22/21 08:07 02/22/21 08:11 02/22/21 08:30 Temperature Pulse Rate 108 H 112 H 115 H Respiratory Rate 30 H 30 H Blood Pressure Pulse Oximetry 92 90 02/22/21 08:38 02/22/21 10:00 02/22/21 10:06 Temperature 36.4 C Pulse Rate 112 H 109 H 113 H Respiratory Rate 30 H 30 H 30 H Blood Pressure 110/72 Pulse Oximetry 93 94 02/22/21 10:07 02/22/21 10:51 02/22/21 11:49 Temperature Pulse Rate 111 H 115 H 126 H Respiratory Rate 30 H 31 H Blood Pressure 122/62 Pulse Oximetry 94 02/22/21 12:00 02/22/21 12:01 02/22/21 12:02 Temperature Pulse Rate 128 H 131 H 131 H Respiratory Rate 30 H Blood Pressure Pulse Oximetry 91 90 Intake/Output Intake/Output: Intake & Output 02/19/21 02/20/21 02/21/21 02/22/21 23:59 23:59 23:59 23:59 Intake Total 4413 4160 3951 2640 Output Total 4450 4330 4200 705 [facility] -[phone] 1935 Meds/Results Medications: Active Medications Generic Name Dose Route Start Last Admin Trade Name Freq PRN Reason Stop Dose Admin Acetaminophen 650 mg 01/29/21 07:52 02/20/21 04:15 Acetaminophen Elixir 325 Mg/10.15 Ml c
--- NOTE | 2021-02-22 13:30 | WPDINTPN ---
Progress Note: A&P Assessment and Plan (1) Acute respiratory failure with hypoxia: Code(s): J96.01 - Acute respiratory failure with hypoxia Status: Acute Assessment and Plan: Acute hypoxic respiratory failure secondary to COVID-19 pneumonia. Over the course she has developed increasing oxygen requirements, transferred to the ICU on 01/12/2021 -was on BiPAP / and 100%. Intubated 01/13 -[facility] was called twice for consideration for ECMO but they did not feel patient was candidate for ECMO - there was a small time period 01/27-01/29, where patient was down to 10 of PEEP and 60% FiO2 and we considered trach and PEG. GI and ENT were consulted after discussion with patient's family but later patient's refused tracheostomy and PEG tube placement at that time -02/08/2021: Patient dislodged her ETT while being placed in the prone position. Dropped his saturations, patient had to be intubated with a 6.5 ETT due to significant swelling of the tongue. Also started on Flolan due to her decreased O2 sats. -01/23/2021, sputum cultures grew normal macario , 02/03/2021: Sputum cultures growing Klebsiella pneumoniae, forman sensitive, on imipenem, started on 01/29/2021. -she will complete a 14 day course of antibiotics 02/11 -patient's respiratory failure management has always been limited by high Peak pressures which was being managed with permissive hypercapnia. Over time her lungs have stiffened and the pressures have worsened. Patient is heavily sedated with fentanyl, Versed, propofol infusion and is on rocuronium infusion for neuromuscular blockade. Patient was switched to PCV mode of ventilation -patient was proned daily earlier in the course but lately patient has not tolerated prone ventilation recently. At last 2 episodes patient became tachycardic, hypotensive with significant increase in pressure and drop in her ventilation on Proning - 02/15 increased FiO2 requirement, worsening chest x-ray, fever an increase in WBC count suggest secondary bacterial pneumonia - Repeat sputum and blood cultures have been sent and are pending - Continue empiric vancomycin and imipenem. Klebsiella on her last sputum culture was sensitive to imipenem -CT chest was done and results are below 02/[address] IMPRESSION: 1. Severe diffuse lung disease, likely a combination of pneumonia and acute respiratory distress syndrome (ARDS). 2. No pneumothorax. Two right-sided chest tubes in expected positions. 3. Pneumomediastinum. 4. Small left pleural effusion. -02/21/2021: Patient was desaturating into the 70s and 80s, [place] [address] [place]. Peep increased to 16, inspiratory pressure of 40, FiO2 of 100% and rate of 30. -this morning patient's O2 sats have been between 90-94% on fluctuating. - bronchodilators and inhaled budesonide on hold as patient is on Flolan -chest x-ray 02/22 diffuse pneumonia and no edema, unchanged -will diurese patient with Lasix and albumin (2) Sepsis: Code(s): A41.9 - Sepsis, unspecified organism Status: Acute Assessment and Plan: 01/22/2021: Urine cultures growing Enterococcus species and mid Proteus mirabilis (initiated ceftriaxone on 01/23/2020) 01/23/2021: Sputum cultures normal macario, initiated vancomycin on 01/23/202101/29 -repeat blood and urine cultures negative She completed a 14 day course of vancomycin, imipenem 02/11 02/15 - - increased FiO2 requirement, worsening chest x-ray, fever an increase in WBC count suggest secondary bacterial pneumonia - repeat sputum pending, blood cultures is going coags negative Staph in 1/2 cultures which could be contaminant but is sensitive to vancomycin - continue empiric vancomycin and imipenem. Klebsiella on her last sputum culture was sensitive to imipenem - infectious disease oracle application consultant following -leukocytosis improving gradually, patient is afebrilee Negative C diff 02/22/2021: White blood cell count decreased to 28.6 from 38.8, yesterday t
--- NOTE | 2021-02-22 13:52 | PC.NURSE ---
Daughter, Regina, to bedside. Dr. Steel at bedside with family discussing plan of care and current condition.
[2021-02-22] MEDS: METOPROLOL TARTRATE INJ 5 MG/5 ML VIAL 2.5 MG IV PUSH (14:10)
[2021-02-22] MEDS: METOPROLOL TARTRATE INJ 5 MG/5 ML VIAL IV PUSH (15:00)
[2021-02-22 17:53] LABS: Glucose Point of Care 147 mg/dl (65-105)
[2021-02-22] MEDS: hetaSTARCH 6%/NACL 500 ML 250 ML IV CONT (19:25)
[2021-02-22] MEDS: NOREPINEPHRINE 8 MG/D5W 250 ML 8 MG/250 ML BAG 9.38 MG IV CONT (23:05)
[2021-02-22 23:29] LABS: Glucose Point of Care 95 mg/dl (65-105)
[2021-02-23] VITALS (35 sets, daily range): BP systolic 52–109; BP diastolic 25–70; PULSE 54–129; RESP 30–31; TEMP 36.1–36.5; O2SAT 89–95
[2021-02-23] MEDS: EPOPROSTENOL SODIUM 0.5 MG VIAL 1 MG INHALATION ×2 (01:57→07:57)
[2021-02-23] MEDS: PROPOFOL IV EMULSION 100 ML 22.41 MG IV CONT ×3 (02:55→09:26)
[2021-02-23 04:45] LABS: Alveolar/Arterial O2 Gradient 542.7 mmHg; Base Excess ABG 19.2 mEq/l (+/-2.0); Carboxyhemoglobin 0.4 % THb (0-2.0); Fractional Inspired Oxygen 100 %; HCO3 ABG 48.6 mEq/l (22.0-26.0); Methemoglobin ABG 0.4 %THb (0-1.5); Oxygen Content ABG 13.8 %vol (16.0-22.0); Oxygen Saturation ABG 93.9 % (95.0-100.0); Oxyhemoglobin 92.9 % THb (90.0-100.0); PO2 ABG 78.1 mmHg (80.0-100.0); PO2 FiO2 Ratio Arterial Blood 0.78 %; Reduced Hemoglobin 6.3 %THb (0-5.0); Total Hemoglobin 10.5 g/dL (12.0-18.0)
[2021-02-23 04:46] LABS: Device VENTILATOR; Modified Allen's Test Pass; PCO2 ABG 92.2 mmHg (35.0-45.0); Site Drawn LEFT RADIAL
[2021-02-23 04:47] LABS: Arterial Blood Gas PEEP 16 cmH2O; Arterial Blood Gas Pressure Support 38 cmH2O; Arterial Blood Gas Vent Mode PRESSURE CONTROL; Arterial Blood Gas Ventilator rate 30 /MIN
[2021-02-23] MEDS: METOCLOPRAMIDE HCL 10 MG/10 ML SOLN UDC PO (05:25)
[2021-02-23] MEDS: CENTRAL LINE FLUSH 10 ML IV PUSH (05:25)
[2021-02-23 05:49] LABS: Hematocrit 28.7 % (37.0-47.0); Hemoglobin 8.9 g/dL (12.0-15.0); Mean Corpuscular Hemoglobin 28.7 pg (26-34); Mean Corpuscular Volume 92.6 fl (80-100); Mean Platelet Volume 9.9 fl (7.4-10.4); Platelet Count Result 333 k/mm3 (150-375); White Blood Count 22.8 K/mm3 (4.5-10.0)
[2021-02-23 06:02] LABS: Vancomycin Trough 15.9 ug/mL (10.0-20.0)
[2021-02-23 06:23] LABS: Alanine Aminotransferase 63 U/L (4-35); Albumin Level 2.7 g/dL (3.5-5.1); Alkaline Phosphatase 180 U/L (38-126); Aspartate Amino Transferase 47 U/L (14-36); Bilirubin,Total 0.6 mg/dL (0.2-1.3); Blood Urea Nitrogen 20 mg/dL (7-17); Carbon Dioxide > 40 mmol/L (22-30); Chloride 90 mmol/L (98-107); Estimated CRCL calculation 230 ml/min; Estimated Glomerular Filt Rate > 60; Glucose 133 mg/dL (65-110); Magnesium 1.8 mg/dL (1.6-2.3); Phosphorus 3.9 mg/dL (2.5-4.5); Potassium 3.6 mmol/L (3.4-5.0); Sodium 142 mmol/L (137-145)
[2021-02-23] MEDS: FENTANYL 2,500MCG/NS250ML(*CRX 2,500 MCG/250 ML BAG 20 MCG IV CONT (08:45)
[2021-02-23] MEDS: MINERAL OIL/WHITE PETROLATUM OINTMENT 1 APPLIC EACH EYE (09:04)
[2021-02-23] MEDS: PANTOPRAZOLE SODIUM IV 40 MG VIAL IV PUSH (09:06)
[2021-02-23] MEDS: MIDAZOLAM 100MG/NS 100ML(*CRX) 100 MG/100 ML BAG 10 MG IV CONT (09:09)
--- NOTE | 2021-02-23 09:45 | WPDINTPN ---
Progress Note: A&P Assessment and Plan (1) Acute respiratory failure with hypoxia: Code(s): J96.01 - Acute respiratory failure with hypoxia Status: Acute Assessment and Plan: Acute hypoxic respiratory failure secondary to COVID-19 pneumonia. Over the course she has developed increasing oxygen requirements, transferred to the ICU on 01/12/2021 -was on BiPAP / and 100%. Intubated 01/13 -[facility] was called twice for consideration for ECMO but they did not feel patient was candidate for ECMO - there was a small time period 01/27-01/29, where patient was down to 10 of PEEP and 60% FiO2 and we considered trach and PEG. GI and ENT were consulted after discussion with patient's family but later patient's refused tracheostomy and PEG tube placement at that time -02/08/2021: Patient dislodged her ETT while being placed in the prone position. Dropped his saturations, patient had to be intubated with a 6.5 ETT due to significant swelling of the tongue. Also started on Flolan due to her decreased O2 sats. -01/23/2021, sputum cultures grew normal macario , 02/03/2021: Sputum cultures growing Klebsiella pneumoniae, forman sensitive, on imipenem, started on 01/29/2021. -she will complete a 14 day course of antibiotics 02/11 -patient's respiratory failure management has always been limited by high Peak pressures which was being managed with permissive hypercapnia. Over time her lungs have stiffened and the pressures have worsened. Patient is heavily sedated with fentanyl, Versed, propofol infusion and is on rocuronium infusion for neuromuscular blockade. Patient was switched to PCV mode of ventilation -patient was proned daily earlier in the course but lately patient has not tolerated prone ventilation recently. At last 2 episodes patient became tachycardic, hypotensive with significant increase in pressure and drop in her ventilation on Proning - 02/15 increased FiO2 requirement, worsening chest x-ray, fever an increase in WBC count suggest secondary bacterial pneumonia - Repeat sputum and blood cultures have been sent and are pending - Continue empiric vancomycin and imipenem. Klebsiella on her last sputum culture was sensitive to imipenem -CT chest was done and results are below 02/[address] IMPRESSION: 1. Severe diffuse lung disease, likely a combination of pneumonia and acute respiratory distress syndrome (ARDS). 2. No pneumothorax. Two right-sided chest tubes in expected positions. 3. Pneumomediastinum. 4. Small left pleural effusion. -02/21/2021: Patient was desaturating into the 70s and 80s, [place] [address] [place]. Peep increased to 16, inspiratory pressure of 38, FiO2 of 100% and rate of 30. -this morning patient's O2 sats have been between 89-94% on fluctuating. - bronchodilators and inhaled budesonide on hold as patient is on Flolan -chest x-ray 02/22 diffuse pneumonia and no edema, unchanged -hold diuresis patient was started on Levophed last night (2) Sepsis: Code(s): A41.9 - Sepsis, unspecified organism Status: Acute Assessment and Plan: 01/22/2021: Urine cultures growing Enterococcus species and mid Proteus mirabilis (initiated ceftriaxone on 01/23/2020) 01/23/2021: Sputum cultures normal macario, initiated vancomycin on 01/23/202101/29 -repeat blood and urine cultures negative She completed a 14 day course of vancomycin, imipenem 02/11 02/15 - - increased FiO2 requirement, worsening chest x-ray, fever an increase in WBC count suggest secondary bacterial pneumonia - repeat sputum pending, blood cultures is going coags negative Staph in 1/2 cultures which could be contaminant but is sensitive to vancomycin - continue empiric vancomycin and imipenem. Klebsiella on her last sputum culture was sensitive to imipenem - infectious disease design sales consultant following -leukocytosis improving gradually, patient is afebrilee Negative C diff 02/22/2021: White blood cell count decreased to 28.6 from 38
[2021-02-23] MEDS: ROCURONIUM BROMIDE 50 MG/5 ML VIAL 100 MG IV PUSH (10:15)
--- NOTE | 2021-02-23 10:44 | P.OPB_ITS ---
Procedure Note - Brief Procedure Note - Brief Date of procedure: 02/23/21 Pre-op diagnosis: covid pneumonia,acute respiratory failure with hyp Post-op diagnosis: same Procedure performed: ETT exchange Description of procedure: called to room stat by riveter portable machine due to inadequate ventilation of patient. Sats less than 50% glidescope view of the glottis with 6.[address]. Discoloration of tube noted. Decision to exchange over a stylet. Stylet passed through existing tube, ETT removed. New 6.5 ETT placed with single pass. Color change on ETCO2 monitor. Ventilation continued by respiratory therapy. Vitals signs unstable. Dr. Steel in attendance and continued to direct care. Implants: New 6.5 ETT Anesthesia: none Surgeon: Aníbal Graham MD Condition: critical Disposition: ICU
[2021-02-23] MEDS: EPINEPHrine INJ 1 MG in DEXTROSE 5% IN WATER 250 ML 75.3 MG IV CONT (11:00)
[2021-02-23 11:19] LABS: Alveolar/Arterial O2 Gradient 536.1 mmHg; Base Excess ABG 7.1 mEq/l (+/-2.0); Carboxyhemoglobin 0.3 % THb (0-2.0); Fractional Inspired Oxygen 100 %; HCO3 ABG 40.2 mEq/l (22.0-26.0); Methemoglobin ABG 2.3 %THb (0-1.5); Oxygen Content ABG 2.4 %vol (16.0-22.0); Reduced Hemoglobin 77.4 %THb (0-5.0); Total Hemoglobin 8.5 g/dL (12.0-18.0)
[2021-02-23 11:21] LABS: PCO2 ABG 155.1 mmHg (35.0-45.0); PO2 ABG 21.8 mmHg (80.0-100.0); pH ABG 7.031 (7.350-7.450)
[2021-02-23 11:22] LABS: Arterial Blood Gas PEEP 16 cmH2O; Arterial Blood Gas Vent Mode PRESSURE CONTROL; Arterial Blood Gas Ventilator rate 30 /MIN; Device VENTILATOR; Peak Inspiratory Pressure 38 cmH2O; Site Drawn RIGHT FEMORAL
[2021-02-23] MEDS: VASOPRESSIN INJ 100 UNITS in DEXTROSE 5% 95 ML IV CONT (11:26)
--- NOTE | 2021-02-23 12:10 | PDCODEBLUE ---
Code Blue Note Code Blue Note Time Arrived at Code Blue: Patient dropped her saturations in the 70s, heart did and blood pressures were also dropping, went in the room, did a pulse check, patient was in PEA starting at 1034 a.m. CPR was started per ACLS protocol along with bag-mask ventilation. ROSC for the 1st time at 10:44 a.m. Initial Rhythm on Arrival: Pulseless electrical activity Airway Management: Initiated bagging pt on arrival ( patient already has an ET tube) Chest Compressions: Initiated upon arrival Result of Code Blue: Pt ( patient's daughter discussed with patient's and finally asked us to stop CPR) Cardiac Rhythm Post Code: asystole Code Blue Summary: Patient dropped her saturations in the 70s, heart did and blood pressures were also dropping, went in the room, did a pulse check, patient was in PEA starting at 1034 a.m. CPR was started per ACLS protocol along with bag-mask ventilation. ROSC for the 1st time at 10:44 a.m. -patient coded again 1102, subjective activity, ROSC at 11:05 a.m. -patient coded again at 11:24 a.m. with ROSC at 11:38 a.m. with PE a get it 11:40 a.m., patient's daughter Regina with discussed with patient's hospice to stop the code and CPR. -during this time patient has been on back 7 doses of Levophed, epinephrine and vasopressin infusion. -patient also developed a pneumothorax after the 1st code and a 2nd chest tube was inserted, by surgery -anesthesia also switch the ETT prior to the 1st code as patient was desaturating and there was a lot of thick secretions seen in the ETT. Patient's daughter at bedside, wound was called off at 11:41 a.m. and patient .
--- NOTE | 2021-02-23 12:47 | P.OP_ITS ---
Procedure Note - Detailed Date of Procedure 02/23/21 Pre-op Diagnosis Recurrent right pneumothorax Post-op Diagnosis same Procedure Performed right chest tube placement Surgeon Stuart Herndon, DO Anesthesia none Indications this is a 60-year-old woman who is intubated and currently undergoing ACLS for cardiac arrest. She has been hospitalized for over a month and has been intubated for most of that period of time. She has had a right pneumothorax for which a chest tube was previously placed. She then had a recurrent right pneumothorax even with that chest tube in place and a 2nd chest tube was placed. This chest tube was recently able to be removed, however this morning she decompensated and chest x-ray was performed while resuscitating the patient and this showed evidence of a recurrent right pneumothorax. I was called to the room emergently to replace the chest tube. Findings The previous incision from her 2nd right chest tube was able to be easily opened with a hemostat. I was able to track with my finger down along into the intercostal region where the previous chest tube was placed. I then was able to bluntly enter into the pleural cavity with my finger and then place a 2nd chest tube. Chest tube was placed to suction with a Pleur-evac. Chest x-ray is still pending to confirm placement, but patient is still undergoing ACLS. Description of Procedure Patient was lying supine in ICU bed. Her bandage around her previous chest tube was removed. Due to the emergent nature, I a quickly opened up the old incision with a hemostat and then advanced my finger along the tract from the previous chest tube. I was able to bluntly enter into the peritoneal cavity with my finger and then swept around the chest wall to ensure that there was space for chest tube placement. The lung appeared to be at least partially expanded, but there was a small gush of air once I entered into the pleural space. I then advanced a 32 Danish chest tube into the pleural cavity and advanced this anterior and medially. The chest tube advanced to about 12 cm and then was secured in place with a 2 0 silk drain stitch. Xeroform gauze and tape was then applied. Estimated Blood Loss 5 Complications None Condition other ( Still undergoing ACLS at the time of chest tube placement) Disposition ICU
--- NOTE | 2021-04-12 19:04 | PM.DDS ---
Discharge Summary Date and Time Date of : 02/23/21 Time of : 11:40 Provider Pronounced By: MATHEW Saenz, MATHEW Huang Probable Cause of Probable Cause of : Acute hypoxic respiratory failure. Septic shock. Summary Hospital Course: Please refer to admission H& P. Briefly, this is a pleasant 60-year-old female without significant medical problems who presented to the emergency department earlier today via EMS from home for evaluation after a syncopal episode. She has not felt well for about 1 week with fever, decreased appetite, nausea, vomiting, diarrhea, and mild cough and tested positive for COVID-19 this past , having been exposed to the same approximately 1 week prior. She has been taking zinc, vitamin-C, vitamin-D, and hydroxychloroquine since the exposure though unfortunately she has not felt much better. In fact she was seen in the emergency department on 12/24/2020 with severe fatigue, nausea, vomiting, and diarrhea. She was hydrated and treated with antiemetics with improvement and was able to be discharged home. She continues to have a poor appetite and has been having episodes of lightheadedness and her appetite and oral intake have remained poor. Last evening she got up to use the restroom and while walking back to her room she felt dizzy and lightheaded before having a syncopal episode. CTA of the chest showed no evidence of central pulmonary embolus and patchy bilateral airspace opacities with a pattern consistent with COVID pneumonia. She is currently requiring oxygen and is being admitted in this setting. At the time of my evaluation she still has a decreased appetite though she is trying to eat and stay hydrated. She continues to feel a bit dizzy when up and about. She has been taking acetaminophen for ongoing fever with benefit. She has not had chest pain or pleuritic pain. She is not necessarily short of breath at this time. Patient was admitted on December 30, 2020. She had a prolonged course in the hospital. Acute hypoxic respiratory failure secondary to COVID-19 pneumonia. Over the course she has developed increasing oxygen requirements, transferred to the ICU on 01/12/2021 -was on BiPAP 03/30 and 100%. Intubated 01/13 -[facility] was called twice for consideration for ECMO but they did not feel patient was candidate for ECMO - there was a small time period 01/27-01/29, where patient was down to 10 of PEEP and 60% FiO2 and we considered trach and PEG. GI and ENT were consulted after discussion with patient's family but later patient's refused tracheostomy and PEG tube placement at that time -02/08/2021: Patient dislodged her ETT while being placed in the prone position. Dropped his saturations, patient had to be intubated with a 6.5 ETT due to significant swelling of the tongue. Also started on Flolan due to her decreased O2 sats. -01/23/2021, sputum cultures grew normal macario , 02/03/2021: Sputum cultures growing Klebsiella pneumoniae, forman sensitive, on imipenem, started on 01/29/2021. -she will complete a 14 day course of antibiotics 02/11 -patient's respiratory failure management has always been limited by high Peak pressures which was being managed with permissive hypercapnia. Over time her lungs have stiffened and the pressures have worsened. Patient is heavily sedated with fentanyl, Versed, propofol infusion and is on rocuronium infusion for neuromuscular blockade. Patient was switched to PCV mode of ventilation -patient was proned daily earlier in the course but lately patient has not tolerated prone ventilation recently. At last 2 episodes patient became tachycardic, hypotensive with significant increase in pressure and drop in her ventilation on Proning - 02/15 increased FiO2 requirement, worsening chest x-ray, fever an increase in WBC count suggest secondary bacterial pneumonia - Repeat sputum and blood cultures have been sent and are pending - Continue empiric vancomycin and imipenem. Klebsiella on
== END 2021-02-23 11:40 | disposition expired | DRG 207 ==
LOC: ANHED 09:56 → ANH3MEDSUR 12:03 → ANHICU 01-16 14:23 → ANH3MEDSUR 02-24 13:47 → ANHICU 02-24 13:47 → ANHIMU 02-24 13:47
PROVIDERS: Emergency Medicine; Internal Medicine; Internal Medicine Infectious Disease; Internal Medicine Nephrology; Nurse Practitioner; Admitting Provider Internal Medicine; Emergency Provider Emergency Medicine; PCP Family Medicine Adolescent Medicine; Visit Provider Physician Assistant
DX: U07.1 COVID-19 (principal); J12.82 Pneumonia due to coronavirus disease 2019; A41.9 Sepsis, unspecified organism; J15.9 Unspecified bacterial pneumonia; J80 Acute respiratory distress syndrome; E87.1 Hypo-osmolality and hyponatremia; E87.2 Acidosis; R57.9 Shock, unspecified; E87.3 Alkalosis; N39.0 Urinary tract infection, site not specified; T85.628A Displacement of other specified internal prosthetic devices, implants and grafts, initial encounter; I46.9 Cardiac arrest, cause unspecified; R42 Dizziness and giddiness; R53.1 Weakness; R11.0 Nausea; F41.9 Anxiety disorder, unspecified; K21.9 Gastro-esophageal reflux disease without esophagitis; Z90.710 Acquired absence of both cervix and uterus; Z90.49 Acquired absence of other specified parts of digestive tract; E87.8 Other disorders of electrolyte and fluid balance, not elsewhere classified; R50.9 Fever, unspecified; R19.7 Diarrhea, unspecified; K57.90 Diverticulosis of intestine, part unspecified, without perforation or abscess without bleeding; E86.0 Dehydration; R74.01 Elevation of levels of liver transaminase levels; R53.83 Other fatigue; G47.00 Insomnia, unspecified; J98.2 Interstitial emphysema; T42.75XA Adverse effect of unspecified antiepileptic and sedative-hypnotic drugs, initial encounter; Y92.230 Patient room in hospital as the place of occurrence of the external cause; E86.1 Hypovolemia; E87.5 Hyperkalemia; D72.829 Elevated white blood cell count, unspecified; B95.2 Enterococcus as the cause of diseases classified elsewhere; B96.4 Proteus (mirabilis) (morganii) as the cause of diseases classified elsewhere; D64.9 Anemia, unspecified; E83.42 Hypomagnesemia; R31.9 Hematuria, unspecified; T83.098A Other mechanical complication of other urinary catheter, initial encounter; Y73.1 Therapeutic (nonsurgical) and rehabilitative gastroenterology and urology devices associated with adverse incidents; Y95 Nosocomial condition; E66.9 Obesity, unspecified; Z68.39 Body mass index [BMI] 39.0-39.9, adult; R22.0 Localized swelling, mass and lump, head
CPT/HCPCS: 31500; 36415; 36430; 36569; 36600; 70450; 70490; 71045; 71250; 71275; 74019; 74176; 76705; 76770; 76775; 80048; 80053; 80074; 80076; 80202; 81001; 82274; 82375; 82565; 82570; 82728; 82805; 82948; 83010; 83050; 83540; 83550; 83605; 83615; 83690; 83735; 83880; 83930; 83935; 84100; 84145; 84300; 84443; 84460; 84484; 85014; 85018; 85025; 85027; 85055; 85380; 85384; 85610; 85730; 86140; 86803; 86850; 86900; 86901; 86920; 87040; 87070; 87077; 87086; 87088; 87106; 87186; 87205; 87324; 92950; 93005; 93306; 93880; 93970; 94002; 94003; 94640; 94667; 96360; 99291; A9270; C1729; C1751; C9113; C9803; J0171; J0456; J0696; J0743; J1120; J1200; J1650; J1720; J1815; J1940; J2060; J2250; J2405; J2704; J2920; J2930; J2997; J3010; J3370; J3475; J3480; J7030; J7040; J7050; J7060; J8540; P9016; P9045; P9047; P9059; Q9967; U0003; U0005